=== PATIENT | female | born 1955 | race Caucasian/White ===

== ENCOUNTER 2022-08-26 09:23 | Emergency (ER) | payer MEDICARE, MEDICAID, SELFPAY ==
--- NOTE | ~2022-08-26 | XR_ITS ---
EXAMINATION: XR SHOULDER, LEFT CLINICAL INFORMATION: Pain COMPARISON: None TECHNIQUE: Three views of the left shoulder. FINDINGS: No fracture or dislocation. The glenohumeral joint is well aligned. Mild joint space narrowing with small osteophytes. The acromioclavicular joint is intact. The visualized lung is clear. The visualized ribs are intact. XR/XR shoulder LT min 2V IMPRESSION: Mild degenerative changes of the left glenohumeral joint.
[2022-08-26 09:50] VITALS: BP 151/85; PULSE 85; RESP 16; TEMP 36.6; O2SAT 99; BMI 18.2
--- NOTE | 2022-08-26 10:33 | ED_ITS ---
HPI - Extremity Problem General Chief complaint: Extremity Problem Stated complaint: Pain in L shoulder and arm no inj Time Seen by Provider: 08/26/22 10:15 Source: patient Mode of arrival: ambulatory Limitations: no limitations History of Present Illness HPI Narrative: 67-year-old female with a past medical history of leukemia, chronic left shoulder pain who is currently on oxycodone who is presenting to the ER with complaints of acute on chronic left shoulder pain Over the past few days worse today. Reports that she has an appointment with Orthopedics in September. She has had physical therapy in the past for this and has had cortisone injections although no symptomatic relief. Reports she just got a new dog therefore he is tugging and she is lifting him a little bit more she regrets getting this dog and she believes it might be related to her acute on chronic left shoulder pain. Reports she cannot take Motrin due to her leukemia and her oncologist told her it is not good for her. Otherwise she denies any falls, chest pain, dizziness, nausea / vomiting, extremity edema, paresthesias, dyspnea on exertion, orthopnea, palpitations, rashes or any other symptoms complaints or concerns at this time. MD Complaint: joint pain Onset (ago): year(s) ( Worse in the past few days) Pain Consistency: constant Location: left and upper extremity ( shoulder) Quality: aching Radiation: none Relieving factors: nothing Exacerbating factors: range of motion and palpation Associated symptoms: denies other symptoms Related Data Previous Rx's Medication Instructions Recorded cyclobenzaprine 10 mg tablet 10 mg PO Q8H #14 tabs 08/26/22 prednisone 20 mg tablet 40 mg PO DAILY inflammation 5 days 08/26/22 #10 tabs Allergies Allergy/AdvReac Type Severity Reaction Status Date / Time vancomycin [VANCOMYCIN] Allergy Mild HIVES Unverified 05/22/20 15:30 imipenem [IMIPENEM] Allergy Unknown HIVES Unverified 05/22/20 15:30 Penicillins [PENICILLINS] Allergy Unknown UNKNOWN Unverified 05/22/20 15:30 lisinopril [LISINOPRIL] AdvReac Unknown COUGH Unverified 05/22/20 15:30 Penicillin Allergy Unknown Uncoded 04/14/12 00:00 Review of Systems Review of Systems: Constitutional : No Weight loss, No Fever, No Chills, No Night Sweats, No Fatigue, No Malaise ENT/Mouth : No Hearing loss, No Ear Pain, No Nasal Congestion, No Sinus Pain, No Hoarseness, No sore throat, No Rhinorrhea, No Swallowing Difficulty Eyes: No Eye Pain, No Swelling, No Redness, No Foreign Body, No Discharge, No Vision Changes Cardiovascular : No Chest Pain, No SOB, No Dyspnea on Exertion, No Orthopnea, No Edema, No Palpitations Respiratory : No Cough, No Sputum, No Wheezing, No Smoke Exposure, No Dyspnea Gastrointestinal : No Nausea, No Vomiting, No Diarrhea, No Constipation, No abdominal Pain, No Hematochezia, No Melena Genitourinary : no irregular bleeding, No Dysuria, No Urinary Frequency, No Hematuria, No Urinary Incontinence, No Urgency, No Flank Pain, No Urinary Flow Changes, No Hesitancy Musculoskeletal : + left shoulder joint pain, No Myalgias, No Joint Swelling Skin : No Skin Lesions, No rash Neuro : No Weakness, No Numbness, No Paresthesias, No Loss of Consciousness, No Dizziness, No Headache Psych : No Anxiety/Panic, No Depression, No SI/HI/AH/VH, No Social Issues, Heme/Lymph: No Bruising, No Bleeding,No Lymphadenopathy Endocrine : No Polyuria, No Polydipsia, No Temperature Intolerance Yes all other systems are reviewed and are negative [facility] Past Medical History Attestation statement: The following information was validated with the patient. Source: old records reviewed and nursing notes reviewed Social History Social History Advance Directives: Yes Advance Directives Information Provided: No Advance Directives on File: No Physical Exam Vital Signs: Vital Signs: Last Vital Signs Temp 97.8 F 08/26/22 09:50 Pulse 85 08/26/22 09:50 Resp 16 08/26/22 09:50 BP 151/85 H 08/26/22 09:50 Pulse Ox 99 08/26/22 09:50 O2 Del Method 08/26/22 09:50 BMI result Body Mass Index 18.2 vital signs have been reviewed as normal and appeared to be correct. Blood pressure normal Heart rate normal. Respiration rate normal. Temperature normal. Oxygen saturation normal. Appearance: Alert. Oriented X3. No acute distress. Head: Normal external exam. Normocephalic. Atraumatic. Eyes: PERRLA. EOMI. Conjunctiva and sclera normal. Eyelids normal. ENT: Pharynx normal. Uvula midline. Moist mucous membranes. Neck: Normal inspection. Neck supple. FROM. CVS: Normal heart rate and rhythm. Respiratory: No respiratory distress. Painless inspiration. Skin: Skin warm and dry. Normal skin color. Normal skin turgor. No rashes/lesions/lacerations noted. Extremities: patient mild tenderness palpation to the left AC joint with limited range of motion on flexion and abduction and outward rotation and inward rotation. Otherwise no obvious ligamentous or tendon injury noted. No extremity edema noted. No rashes are noted. Not consistent with septic joint. Otherwise all other extremities exhibit normal range of motion nontender. Neuro: Oriented X 3. No motor deficit. No sensory deficit. Reflexes normal. Normal steady gait. No focal neuro deficits noted. Vascular: + radial pulses/+ 2 distal pedal pulses/+2 dorsalis pedis b/l. Normal cap refill. No cyanosis noted to upper extremity nails and lower extremity toes nails. Course Course Course Narrative: X-ray revealed FINDINGS: No fracture or dislocation. The glenohumeral joint is well aligned. Mild joint space narrowing with small osteophytes. The acromioclavicular joint is intact. The visualized lung is clear. The visualized ribs are intact.? XR/XR shoulder LT min 2V IMPRESSION: Mild degenerative changes of the left glenohumeral joint. therefore explained to the patient that she should follow-up with her primary care provider continue taking her prescribed Tylenol and her oxycodone I will add prednisone and muscle relaxant and to follow-up with PCP for referral to for physical therapy or possible Orthopedics for steroids shots if they believe she requires it. Otherwise to return if any new or worsening symptoms. Patient understands agrees with this plan Discharge Plan Discharge Clinical Impression: Degenerative joint disease of left shoulder Patient Disposition: Home, Self-Care Instructions: Osteoarthritis (ED) Prescriptions: New prednisone 20 mg tablet 40 mg PO DAILY 5 Days Qty: 10 0RF cyclobenzaprine 10 mg tablet 10 mg PO Q8H Qty: 14 0RF Referrals: Erwin Gavin MD [Physician] - 3 days
--- OUTSIDE RECORDS SUMMARY | 2022-08-26 10:44 | XMS_ITS | Continuity of Care Document ---
:1955 Author Organization [facility] Address [address] [place] [address]- Care Team Providers Name Role Phone Rah ROBERSON, Eva Snell Primary Care Physician Encounter [facility] [place] Date(s): 01/29/20 - 02/05/20 [facility] [address] [place] [address] [place] Attending Physician: Cuauhtemoc Nuñez MD Admitting Physician: Cuauhtemoc Nuñez MD Allergies, Adverse Reactions, Alerts Substance Reaction Severity Status lisinopril Active cephalosporins Active penicillins Rash Active Vanoxide-HC Active cilastatin Active imipenem Active Medications acetaminophen 500 mg oral capsule 2 capsule = 1,000 mg, By Mouth, Every 6 hours, PRN Pain, # 24 capsule, 0 Refills, Maintenance, Capsule Start Date: 02/04/11 Status: OrderedAmlodipine By Mouth, Daily, 0 Refills, Maintenance, 11/21/18 12:02:38 EDT Start Date: 11/21/18 Status: OrderedBactrim DS Tab (Prophylaxis) 1, tablet, By Mouth, 2 times a day, Maintenance, 01/02/13 4:40:45 Start Date: 01/02/13 Status: OrderedCalcium Carbonate By Mouth, 0 Refills, Maintenance, 08/21/14 14:34:57 Start Date: 08/21/14 Status: OrderedEfudex 5% topical cream 1 applicator, Topically, 2 times a day, 0 Refills, Maintenance, 08/21/14 14:35:34 Start Date: 08/21/14 Status: OrderedExjade = 20 mg/kg, By Mouth, Daily, 0 Refills, Maintenance, 08/21/14 14:35:49 Start Date: 08/21/14 Status: OrderedFolic Acid Daily, 0 Refills, Maintenance, 08/21/14 14:35:41 Start Date: 08/21/14 Status: Orderedgabapentin 300 mg/24 hours oral tablet, extended release 2 tablet = 600 mg, By Mouth, Daily, 0 Refills, Maintenance, 08/21/14 14:34:20 Start Date: 08/21/14 Status: Orderedglycerin adult rectal suppository 1 supp, Rectally, Daily, for 14 days, prior to having bowel movement, # 14 supp, 1 Refills, Acute 02/26/20 14:10:00 EDT, 01/29/20 14:10:00 EDT, Suppository, [facility] # [facility], 173, cm, 11/27/18 12:36:00 EDT, Height Start Date: 01/29/20 Stop Date: 02/26/20 Status: OrderedLorazepam 0 Refills, Maintenance, 08/21/14 14:34:29 Start Date: 08/21/14 Status: OrderedMultivitamin By Mouth, Daily, 0 Refills, Maintenance Start Date: 01/02/13 Status: Orderedoxycodone 5 mg/5 ml oral solution 5 mL = 5 mg, By Mouth, Every 6 hours, PRN for pain, # 120 mL, 0 Refills, Maintenance, Solution Start Date: 02/04/11 Status: Orderedprednisone 1 mg oral tablet 4 tablet = 4 mg, By Mouth, Daily, 0 Refills, Maintenance Start Date: 01/02/13 Status: OrderedValtrex 500 mg oral tablet 2 tablet = 1,000 mg, By Mouth, Every 12 hours, 0 Refills, Maintenance Start Date: 12/21/09 Status: Ordered Problem List Condition Effective Dates Status Health Status Informant Fecal incontinence(Confirmed) Active Social History Social History Type Response Smoking Status Never smoker entered on: 08/21/14 Sex
--- OUTSIDE RECORDS SUMMARY | 2022-08-26 10:44 | XMS_ITS | Continuity of Care Document ---
:1955 Author Organization [facility] Address [address] [place] [address]- Care Team Providers Name Role Phone Eva Monreal MD Primary Care Physician Encounter [facility] [place] Date(s): 03/03/20 - 03/10/20 [facility] [address] [place] [id number] [place] Attending Physician: Cuauhtemoc Nuñez MD Admitting Physician: Cuauhtemoc Nuñez MD Referring Physician: Eva Monreal MD Allergies, Adverse Reactions, Alerts Substance Reaction [...] Maintenance, 08/21/14 14:34:20 Start Date: 08/21/14 Status: OrderedLorazepam 0 Refills, Maintenance, 08/21/14 14:34:29 [...]
--- OUTSIDE RECORDS SUMMARY | 2022-08-26 10:44 | XMS_ITS | Continuity of Care Document ---
:1955 Author Organization [facility] Address [address] [place] [address]- Care Team Providers Name Role Phone Eva Monreal MD Primary Care Physician Encounter [facility] [place] Date(s): 10/29/20 - 11/28/20 [facility] [address] [place] [address]- Allergies, Adverse Reactions, Alerts Substance Reaction Severity Status lisinopril cough Active cephalosporins rash Active penicillins Rash Active Vanoxide-HC rash Active cilastatin rash Active imipenem rash Active Medications acetaminophen 500 mg oral capsule 2 capsule = 1,000 mg, By Mouth, Every 6 hours, PRN Pain, # 24 capsule, 0 Refills, Maintenance, Capsule Start Date: 02/04/11 Status: OrderedAmlodipine = 5 mg, By Mouth, 2 times a day, 0 Refills, Maintenance, 11/21/18 12:02:38 EDT Start Date: 11/21/18 Status: OrderedBactrim DS Tab (Prophylaxis) 1, tablet, By Mouth, 2 times a day, Maintenance, 01/02/13 4:40:45 Start Date: 01/02/13 Status: OrderedEfudex 5% topical cream 1 applicator, Topically, 2 times a day, PRN Other, as instructed for skin issue on hand, 0 Refills, Maintenance, 08/21/14 14:35:34 EST Start Date: 08/21/14 Status: OrderedFolic Acid = 1 mg, By Mouth, Daily in AM, 0 Refills, Maintenance, 08/21/14 14:35:41 EST Start Date: 08/21/14 Status: Orderedgabapentin 300 mg oral capsule 3 capsules, By Mouth, Daily in AM, Refills 0, Maintenance, 10/24/20 8:46:00 EST, Partial fill upon patient request if the prescription is for a schedule II opioid drug. Start Date: 10/24/20 Status: Orderedgabapentin 300 mg oral capsule 4 capsules, By Mouth, Daily at bedtime, Refills 0, Maintenance, 10/24/20 8:47:00 EST, Partial fill upon patient request if the prescription is for a schedule II opioid drug. Start Date: 10/24/20 Status: Orderedkirkland calcium citrate with Mg,Zinc,andD3 franco calcium citrate with Mg,Zinc,andD3, 1, tablet, By Mouth, Daily in AM, Refills 0, Maintenance, 10/24/20 9:05:00 EST, Supply Start Date: 10/24/20 Status: OrderedLorazepam = 1 mg, By Mouth, 4 times a day, PRN as needed for anxiety, may take .5 mg, 0 Refills, Maintenance, 08/21/14 14:34:29 EST Start Date: 08/21/14 Status: OrderedNiacinamide 2 capsules, By Mouth, 2 times a day, 0 Refills, Maintenance, 10/24/20 9:10:00 EST, Partial fill uponpatient request if the prescription is for a schedule II opioid drug. Start Date: 10/24/20 Status: OrderedoxyCODONE 5 mg oral capsule 1 capsule = 5 mg, By Mouth, Every 6 hours, PRN as needed for pain, 0 Refills, Maintenance, 10/24/20 9:04:00 EST, Capsule, Partial fill upon patient request if the prescription is for a schedule II opioid drug. Start Date: 10/24/20 Status: Orderedprednisone 1 mg oral tablet 1 tablet = 1 mg, By Mouth, Daily in AM, 0 Refills, Maintenance, 01/02/13 4:38:47 EDT Start Date: 01/02/13 Status: OrderedProbiotic Formula 1 capsule, By Mouth, Daily in AM, 0 Refills, Maintenance, 10/24/20 9:12:00 EST, Partial fill upon patient request if the prescription is for a schedule II opioid drug. Start Date: 10/24/20 Status: OrderedTrintellix 20 mg oral tablet 1 tablet = 20 mg, By Mouth, Daily at bedtime, Maintenance, 10/24/20 8:50:00 EST, Tablet, Partial fill upon patient request if the prescription is for a schedule II opioid drug. Start Date: 10/24/20 Status: OrderedValtrex 500 mg oral tablet 2 tablet = 1,000 mg, By Mouth, Every 12 hours, 0 Refills, Maintenance Start Date: 12/21/09 Status: OrderedVitamin K2 and D3 Vitamin K2 and D3, 1 gel, By Mouth, Daily in AM, Refills 0, Maintenance, 10/24/20 9:08:00 EST, Supply Start Date: 10/24/20 Status: Ordered Problem List Condition Effective Dates Status Health Status Informant Fecal incontinence(Confirmed) Active Social History Social History Type Response Smoking Status Never smoker entered on: 08/21/14 Sex
--- OUTSIDE RECORDS SUMMARY | 2022-08-26 10:44 | XMS_ITS | Continuity of Care Document ---
:1955 Author Organization [facility] Address [address] [place] [id number]- Care Team Providers Name Role Phone Rah ROBERSON, Eva Snell Primary Care Physician [place] [facility] [place](s): 10/30/20 - 10/30/[address] [id number] Discharge Disposition: A-D/C Home Attending Physician: Kristyn Cr MD Admitting Physician: Kristyn Cr MD Referring Physician: Kristyn Cr MD Allergies, Adverse Reactions, Alerts Substance Reaction [...] 08/21/14 14:35:34 EST Start Date: 08/21/14 Status: OrderedFENTanyl Inj 25 mcg, Injection, IV Push Slowly, Every 5 minutes for 8 doses/times, in PACU ONLY, Hold for: RR less than 8 or over-sedation, PRN for Pain , Moderate, Repeat until Pain Score is less than or equal to 2, Routine, 10/30/20 13:34:00 EST, Stop date Limit... Start Date: 10/30/20 Status: OrderedFolic Acid = 1 mg, By [...] II opioid drug. Start Date: 10/24/20 Status: OrderedOxyCODONE IR Tablet 5 mg, Tablet, By Mouth, Every 4 hours, in PACU ONLY, if patient can tolerate PO, PRN for Pain , Mild, Routine, 10/30/20 13:34:00 EST Start Date: 10/30/20 Stop Date: 11/06/20 Status: Orderedprednisone 1 mg oral tablet 1 [...] Status Health Status Informant Fecal incontinence(Confirmed) Active Vital Signs Most recent to oldest 1 2 3 [Reference Range]: Height 173 cm 173 cm (10/30/20 12:27 PM) (10/24/20 9:28 AM) Weight 58.18 kg (10/24/20 9:28 AM) Oxygen Saturation 96 % 96 % 100 % [94-100 %] (10/30/20 3:15 PM) (10/30/20 3:00 PM) (10/30/20 2:4 5 PM) Pulse Rate [55-90 bpm] 77 bpm (10/30/20 12:27 PM) Body Mass Index 19.44 [18.5-24.99] (10/24/20 9:28 AM) Blood Pressure 128/74 mm Hg 113/56 mm Hg 115/67 mm Hg [90-138/55-84 mm Hg] (10/30/20 3:15 PM) (10/30/20 3:00 PM) ( 1 2:45 PM) Respiratory Rate [16-30 12 br/min 11 br/min 12 br/mi n br/min] *L* *L* *L* (10/30/20 3:15 PM) (10/30/20 3:07 PM) (10/30/20 2:5 3 PM) Temperature [96.8-100.4 97.6 DegF 97.2 DegF 98.8 Deg F DegF] (10/30/20 3:15 PM) (10/30/20 2:30 PM) (10/30/20 12: 27 PM) Liters per Minute 4 L/min 4 L/min (10/30/20 2:45 PM) (10/30/20 2:30 PM) Mode of Delivery Room air Room air Simple face mas k (Oxygen) (10/30/20 3:15 PM) (10/30/20 3:00 PM) (10/30/20 2:4 5 PM) Blood pressure sites Arm, right Arm, right Arm, right (10/30/20 3:15 PM) (10/30/20 3:00 PM) (10/30/20 2:4 5 PM) Temperature Route Temporal Temporal Temporal (10/30/20 3:15 PM) (10/30/20 2:30 PM) (10/30/20 12: 27 PM) Dry Weight 59.6 kg 58.18 kg (10/30/20 12:27 PM) (10/24/20 9:28 AM) Weight Obtained Via Patient/family stated (10/24/20 9:28 AM) Dry Weight Obtained Via Standing scale Patient/family stated (10/30/20 12:27 PM) (10/24/20 9:28 AM) Social History Social History Type Response Smoking Status Never smoker entered on: 08/21/14 Sex
--- OUTSIDE RECORDS SUMMARY | 2022-08-26 10:44 | XMS_ITS | Continuity of Care Document ---
:1955 Author Organization [facility] Address [address] [place] [address]- Care Team Providers Name Role Phone Eva Monreal MD Primary Care Physician Encounter [facility] [place] Date(s): 12/17/20 - 12/24/20 [facility] [address] [place] [id number]- Attending Physician: Cuauhtemoc Nuñez MD Admitting Physician: Cuauhtemoc Nuñez MD Referring Physician: Eva Monreal MD Allergies, Adverse Reactions, Alerts Substance Reaction Severity Status lisinopril cough Active Vanoxide-HC rash Active imipenem rash Active cephalosporins rash Active penicillins Rash Active cilastatin rash Active Medications acetaminophen 500 mg oral [...]
--- OUTSIDE RECORDS SUMMARY | 2022-08-26 10:44 | XMS_ITS | Continuity of Care Document ---
:1955 Author Organization [facility] Address [address] [facility], [address] [place] [address]- Care Team Providers Name Role Phone Eva Monreal MD Primary Care Physician Encounter 04/24/20 - 05/01/20 [facility] [address], [address] [place] [address]- [facility] Attending Physician: Alley Cr MD Admitting Physician: Alley Cr MD Referring Physician: Alley Cr MD Allergies, Adverse Reactions, Alerts Substance [...] Status Health Status Informant Fecal incontinence(Confirmed) Active Results Radiology Reports Exam Date Time Procedure Performing Provider Status 04/24/20 9:35 AM Dexa Bone Density (Axial) Rita Ivey (Verified) Notes:(Dexa Bone Density (Axial)) Reason For Exam: z78.0 asymptomatic menopasual stateRESULT: DEXA BONE DENSITY (AXIAL) Bone Density Report Name: PHYLLIS CUADRA Age: 64 Sex: Female Ethnicity: White Date of : 1955 Indication: POSTMENOPAUSAL. Referring Provider: ALLEY CR Study: Bone densitometry was performed. Exam Date: April 24, 2020 Accession number: [id number] Bone Density: Region BMD T-score Z-score Classification AP Spine (L1-L4) 0.931 -1.1 0.8 Osteopenia Femoral Neck (Left) 0.739 -1.0 0.6 Normal Total Hip (Left) 0.767 -1.4 -0.2 Osteopenia World Health Organization criteria for BMD impression classify patients as: Normal (T-score at or above -1.0), Osteopenia (T-score between -1.0 and -2.5), or Osteoporosis (T-score at or below -2.5). 10-year Fracture Risk(1): Major Osteoporotic Fracture 12% Hip Fracture 1.1% Reported Risk Factors: [place] (), Neck BMD=0.739, BMI=21.3, glucocorticoids (1) FRAX(R) Version 3.00. Fracture probability calculated for an untreated patient. Fracture probability may be lower if the patient has received treatment. Previous Exams: Region Exam Age BMD T-score BMD Change BMD Change Date g/cm2 vs Baseline vs Previous AP Spine(L1-L4) 04/24/2020 64 0.931 -1.1 -3.0%* -0.9% 08/04/2016 61 0.939 -1.0 -2.2% 2.0% 07/24/2014 59 0.920 -1.2 -4.2%* -4.2%* 04/06/2012 56 0.960 -0.8 Total Hip(Left) 04/24/2020 64 0.767 -1.4 13.4%* -2.0% 08/04/2016 61 0.783 -1.3 15.7%* 8.6%* 07/24/2014 59 0.721 -1.8 6.6%* 6.6%* 04/06/2012 56 0.677 -2.2 Femoral Neck(Left) 04/24/2020 64 0.739 -1.0 12.9%* 17.8%* 08/04/2016 61 0.627 -2.0 -4.2% 0.2% 07/24/2014 59 0.626 -2.0 -4.4% -4.4% 04/06/2012 56 0.655 -1.7 *Denotes significance at 95% confidence level, LSC for AP Spine = 0.022 g/cm2, LSC for Total Hip = 0.027 g/cm2 Clinical Information Provided by Patient: Has taken Glucocorticoids Has used the following medications: Vitamin D, Calcium Has the following medical conditions: Cancer, LEUKEMIA Patient maximum height was 68.75 Menopause Age: 48 Onset of menses at age 11 Number of children 3 Impression: The patient has osteopenia as determined by WHO criteria. Based on the results of the patient???s bone density assessment, the risk of future fracture increases approximately two fold for each 1.0 SD decrease in T-score. However, low BMD is not the only risk factor for a future fragility fracture. Other clinical risk factors for osteoporotic fracture should be considered in ascertaining this patient???s future fracture risk including the patient???s age, previous osteoporotic (fragility) fracture, estrogen deficiency/hypogonadism, risk of falling, use of medications implicated in bone loss (glucocorticoids), family history of osteoporotic fracture, diseases and conditions associated with bone loss, low body weight, smoking, high bone turnover, etc. Combining low BMD and other clinical risk factors result in a more precise assessment of future fracture risk. Secondary causes for osteoporosis, such as osteomalacia, other metabolic bone disorders, and diseases and conditions that may contribute to accelerated bone loss may have to be considered depending on the clinical situation. A repeat bone density assessment should be considered in two years. Reported by: Romain Lopez MD on 04/24/2020 12:45:00 PM. Dictated By: Romain Lopez MD Dictated Date/Time: 04/24/20 12:46 p Reviewed By: Romain Lopez MD Signed By: Romain Lopez MD Signed Date/Time: 04/24/20 12:46 pm Transcribed By: MARLENA Transcribed Date/Time: 04/24/20 12:46 pm Social History Social History Type Response Smoking Status Never smoker entered on: 08/21/14 Sex
--- OUTSIDE RECORDS SUMMARY | 2022-08-26 10:44 | XMS_ITS | Continuity of Care Document ---
:1955 Author Organization [facility] Address [address] [place] [address], [address] [place] [id number]- Care Team Providers Name Role Phone Rah ROBERSON, Eva Snell Primary Care Physician Encounter 06/03/21 - 06/10/21 [facility] [address], [address] [place] [address]- Attending Physician: Kristyn Cr MD Admitting Physician: [...]
--- OUTSIDE RECORDS SUMMARY | 2022-08-26 10:44 | XMS_ITS | Continuity of Care Document ---
:1955 Author Organization [facility] Address [address] [place] [address]- Care Team Providers Name Role Phone Eva Monreal MD Primary Care Physician [place] [facility] [place] - 04/09/20 [facility] [address] [place] [id number]- [place] Attending Physician: Cuauhtemoc Nuñez MD Admitting [...]
--- OUTSIDE RECORDS SUMMARY | 2022-08-26 10:45 | XMS_ITS | Continuity of Care Document ---
:1955 Author Organization [facility] Address [address] [place] [address]- Care Team Providers Name Role Phone Rah ROBERSON, Eva Snell Primary Care Physician Encounter [facility] [place] Date(s): 03/03/20 - 04/02/20 [facility] [address] [place] [id number]- [facility] Attending Physician: Alexa Lundberg Admitting Physician: AdmAlexa lewis Referring Physician: AdmtrAlexa Allergies, Adverse Reactions, Alerts Substance Reaction Severity [...]
--- OUTSIDE RECORDS SUMMARY | 2022-08-26 10:45 | XMS_ITS | Continuity of Care Document ---
:1955 Author Organization [facility] Address [address] [place] [address]- Care Team Providers Name Role Phone Rah ROBERSON, Eva Snell Primary Care Physician Encounter [facility] [place], [place] Date(s): 12/17/20 - 01/16/21 [facility] [address] [place] [id number]- Attending Physician: Alexa Lundberg Admitting Physician: Alexa Lundberg Referring Physician: AdmtrAlexa Allergies, Adverse Reactions, Alerts [...]
== END 2022-08-26 10:50 | disposition home or self-care (01) ==
PROVIDERS: Emergency Provider Emergency Medicine Emergency Medical Services; PCP Internal Medicine
DX: M19.012 Primary osteoarthritis, left shoulder (principal); M25.512 Pain in left shoulder
CPT/HCPCS: 73030; 99283

== ENCOUNTER 2022-08-29 12:23 | Emergency (ER) | payer MEDICARE, MEDICAID, SELFPAY ==
[2022-08-29 12:30] VITALS: BP 164/77; PULSE 89; RESP 14; TEMP 36.6; O2SAT 99; BMI 18.2
--- NOTE | 2022-08-29 14:20 | PC.NURSE ---
pt medicated per order, pt requesting another 5 mg oxy for her 05/15 pain
--- NOTE | 2022-08-29 14:29 | ED_ITS ---
HPI - General Adult General Chief complaint: General Medical Stated complaint: Allergic Reaction Time Seen by Provider: 08/29/22 12:44 Source: patient Mode of arrival: ambulatory History of Present Illness HPI narrative: 67-year-old female with a past medical history of leukemia, chronic left shoulder pain, presenting to the ED complaining of acute on chronic left shoulder and elbow pain, now with pruritic rash at prior Lidoderm patch site. Admits to being seen in the ED recently for similar symptoms, Rx Lidoderm patches and Flexeril, then developed localized pruritic hives to area. States had shoulder x-ray at that time which showed osteoarthritis however did not take x-rays of elbow. Reports fell out of bed onto elbow, unclear which day. Denies symptoms prior to fall including headache, lightheadedness or dizziness. Denies SOB, oral swelling, head trauma or LOC. denies chest pain, shortness of breath, numbness, tingling, weakness Onset (ago): day(s) Related Data Previous Rx's Medication Instructions Recorded cyclobenzaprine 10 mg tablet 10 mg PO Q8H #14 tabs 08/26/22 prednisone 20 mg tablet 40 mg PO DAILY inflammation 5 days 08/26/22 #10 tabs cetirizine 10 mg capsule (Zyrtec) 10 mg PO DAILY PRN allergy 08/29/22 symptoms #14 caps diphenhydramine HCl 25 mg capsule 25 mg PO TID PRN allergic reaction 08/29/22 (Benadryl) #14 caps hydrocortisone 1 % topical 1 appl topical BID PRN rash #453.6 08/29/22 ointment (Anti-Itch grams (hydrocortisone)) Allergies Allergy/AdvReac Type Severity Reaction Status Date / Time vancomycin [VANCOMYCIN] Allergy Mild HIVES Unverified 05/22/20 15:30 imipenem [IMIPENEM] Allergy Unknown HIVES Unverified 05/22/20 15:30 Penicillins [PENICILLINS] Allergy Unknown UNKNOWN Unverified 05/22/20 15:30 lisinopril [LISINOPRIL] AdvReac Unknown COUGH Unverified 05/22/20 15:30 Penicillin Allergy Unknown Uncoded 04/14/12 00:00 Review of Systems Review of Systems: Constitutional: No Fever, No Chills, No Fatigue, No Malaise ENT/Mouth: No Ear Pain, No Nasal Congestion, No Sinus Pain, No Hoarseness, No sore throat, No Rhinorrhea, No Swallowing Difficulty Eyes: No Eye Pain, No Swelling, No Redness, No Discharge, No Vision Changes Cardiovascular: No Chest Pain, No SOB, No Edema, No Palpitations Respiratory: No Cough, No Sputum, No Wheezing, No Smoke Exposure, No Dyspnea Gastrointestinal: No Nausea, No Vomiting, No Diarrhea, No Constipation, No Abdom inal pain, Genitourinary: No Dysuria, No Urinary Frequency, No Hematuria, No Urgency, No Flank Pain Musculoskeletal: + joint pain, No Myalgias, No Joint Swelling Skin: No Skin Lesions, + rash Neuro: No Weakness, No Numbness, No Paresthesias, No Loss of Consciousness, No Dizziness, No Headache Yes all other systems are reviewed and are negative Constitutional: Constitutional: Reports as per [facility] Past Medical History Attestation statement: The following information was validated with the patient. Social History Social History Advance Directives: Yes Advance Directives Information Provided: No Advance Directives on File: No Physical Exam ED Vital Signs: Vital Signs - 24 hr 08/29/22 12:30 Temperature 98 F Pulse Rate 89 Respiratory Rate 14 Blood Pressure 164/77 H Pulse Oximetry 99 Oxygen Delivery Method Room Air BMI result Body Mass Index 18.2 Const General: cooperative and no acute distress Orientation/consciousness: patient oriented x3 Limitations: no limitations HENMT Head: Yes normal to inspection and Yes atraumatic Ears: hearing grossly normal bilaterally General nose exam: Normal external nose present Face and sinus: Yes normal facial exam Mouth: Normal oral and palatal mucosa present Throat: Yes posterior oropharynx normal, Yes tonsils normal, Yes uvula midline, No peritonsillar mass, No uvula laterally displaced and No uvular edema Eyes General: appearance normal, both eyes and all related structures EOM: EOMs intact bilaterally Neck Neck: Yes normal visual inspection and Yes no meningeal signs Resp Effort & Inspection: normal respiratory effort and no respiratory distress Cardio Rate: regular rate Heart sounds: S1 normal heart sound present and S2 normal heart sound present Peripheral pulses: Peripheral pulses 2+ throughout Skin Other: + localized hives to left upper arm in patch formation. Overlying excoriations noted. No open wounds/drainage, warmth or cellulitis. Not circumferential Wounds: no wounds Neuro General: patient oriented x3, gait normal, tone normal, moves all extremities and no meningeal signs Gait exam (Neuro): Normal gait present Extrem Other: Left shoulder with mild tenderness. Decreased ROM secondary to pain. Left elbow without noted deformity, tender to palpation. Pronation/supination intact. Neurovascular intact distally. General: Yes normal to inspection Course Course Course Narrative: XR elbow LT min 3V IMPRESSION: ? 1. Moderate diffuse osteopenia. 2. Soft tissue swelling overlying the olecranon bursa. 3. Tiny 2 to 3 mm curvilinear radiopaque density seen overlying the outer cortex of the olecranon process of the ulna, may represent small cortical avulsion fracture versus calcific enthesopathy with or without superimposed olecranon bursitis. 4. No evidence of any joint effusion. >> sling applied Results discussed with patient including worrisome signs and symptoms and strict return precautions, and when to return to the emergency department. They verbalized understanding and feel safe for discharge at this time. Medications Administered Discontinued Medications Generic Name Dose Route Start Last Admin Trade Name Amrita PRN Reason Stop Dose Admin Acetaminophen 650 mg 08/29/22 14:04 08/29/22 14:19 Acetaminophen 325 Mg Tablet PO 08/29/22 14:05 650 mg ONCE ONE Administration Oxycodone HCl 5 mg 08/29/22 14:04 08/29/22 14:19 Oxycodone Hcl Immed Release 5 Mg Tablet PO 08/29/22 14:05 5 mg ONCE ONE Administration Medical Decision Making Medical Decision Making [facility] Narrative: 67-year-old female with a past medical history of leukemia, chronic left shoulder pain, presenting to the ED complaining of acute on chronic left shoulder and elbow pain, now with pruritic rash at prior Lidoderm patch site. On exam vital signs stable, NAD, nontoxic appearing with physical exam as above with suspected localized allergic reaction from Lidoderm patches vs ?Possibly due to Flexeril although less likely. Concern for occult fracture of elbow versus sprain. Documentation/imaging reviewed from 08/26. Plan: Elbow x-ray, topical hydrocortisone. Patient previously prescribed p.o. prednisone, also takes oxycodone at home Differential Diagnosis Differential Diagnoses: The differential diagnosis associated with the presentation includes Discharge Plan Discharge Clinical Impression: Fracture, olecranon, Allergic reaction Patient Disposition: Home, Self-Care Instructions: Elbow Fracture (ED), How to Use a Sling (ED), General Allergic Reaction (ED) Additional Instructions: Your x-ray shows a possible avulsion fracture of her elbow. Wear sling at home at all times, you may take off to shower. Please call the orthopedic surgeon for follow-up in 1 week. You also have what appears to be a localized allergic reaction suspected from the Lidoderm patch. Please stop using. Continue taking previously prescribed prednisone, in addition apply topical steroid cream twice daily. Zyrtec and Benadryl also help with allergy symptoms. Benadryl will make you drowsy Avoid applying this cream to her face, hands, feet, and genital region as can discolored your skin. If you develop shortness of breath, facial or oral swel ling, difficulty breathing, fever, persistent or worsening pain return to the emergency department Prescriptions: New Zyrtec 10 mg capsule 10 mg PO DAILY PRN (Reason: allergy symptoms) Qty: 14 0RF diphenhydramine HCl [Benadryl] 25 mg capsule 25 mg PO TID PRN (Reason: allergic reaction) Qty: 14 0RF hydrocortisone [Anti-Itch (HC)] 1 % ointment 1 appl topical BID PRN (Reason: rash) Qty: 453.6 0RF No Action prednisone 20 mg tablet 40 mg PO DAILY 5 Days Qty: 10 0RF cyclobenzaprine 10 mg tablet 10 mg PO Q8H Qty: 14 0RF Referrals: [facility] [Provider Group] - 1 week Interventions: ED Discharge Assessment Last Done: 08/29/22 14:59 Discharge Date/Time: 08/29/22 15:00
--- NOTE | 2022-08-29 14:57 | PC.NURSE ---
pt continued to ask for another 5 mg oxycodone, pt has been notified multiple times that the provider declines to administer any additional pain medications, pt is upset over this, pt has oxycodone at home and has been discharged.
--- NOTE | 2022-08-29 14:59 | PC.NURSE ---
pts pain upon discharge is 9/10.
== END 2022-08-29 15:00 | disposition home or self-care (01) ==
PROVIDERS: Emergency Provider Student in an Organized Health Care Education/Training Program; PCP Internal Medicine
DX: S52.022A Displaced fracture of olecranon process without intraarticular extension of left ulna, initial encounter for closed fracture (principal); L50.0 Allergic urticaria; X58.XXXA Exposure to other specified factors, initial encounter; Y93.9 Activity, unspecified; Y92.9 Unspecified place or not applicable; Y99.9 Unspecified external cause status; Z79.899 Other long term (current) drug therapy
CPT/HCPCS: 73080; 99283

== ENCOUNTER 2022-10-15 15:03 | Emergency (ER) | payer MEDICARE, MEDICAID, SELFPAY ==
--- NOTE | 2022-10-15 15:18 | ED_ITS ---
HPI - General Adult General Chief complaint: General Medical Stated complaint: Unresponsive per EMS Time Seen by Provider: 10/15/22 17:03 Source: patient Mode of arrival: ambulatory Limitations: no limitations History of Present Illness HPI narrative: 67yoF with PMHx of leukemia, chronic left shoulder pain, neuropathy to feet presenting to the ED with complaints of feeling not great/lightheadedness since taking some THC TINCTURE travel pta. Reports she did vomit and felt like she was going to pass although did not pass out. She was able to call EMS. MD complaint: Not feeling great after THC drop Onset (ago): hour(s) (Prior to arrive) Related Data Previous Rx's Medication Instructions Recorded cyclobenzaprine 10 mg tablet 10 mg PO Q8H #14 tabs 08/26/22 prednisone 20 mg tablet 40 mg PO DAILY inflammation 5 days 08/26/22 #10 tabs cetirizine 10 mg capsule (Zyrtec) 10 mg PO DAILY PRN allergy 08/29/22 symptoms #14 caps diphenhydramine HCl 25 mg capsule 25 mg PO TID PRN allergic reaction 08/29/22 (Benadryl) #14 caps hydrocortisone 1 % topical 1 appl topical BID PRN rash #453.6 08/29/22 ointment (Anti-Itch grams (hydrocortisone)) Allergies Allergy/AdvReac Type Severity Reaction Status Date / Time vancomycin [VANCOMYCIN] Allergy Mild HIVES Unverified 05/22/20 15:30 imipenem [IMIPENEM] Allergy Unknown HIVES Unverified 05/22/20 15:30 Penicillins [PENICILLINS] Allergy Unknown UNKNOWN Unverified 05/22/20 15:30 lisinopril [LISINOPRIL] AdvReac Unknown COUGH Unverified 05/22/20 15:30 Penicillin Allergy Unknown Uncoded 04/14/12 00:00 Review of Systems Review of Systems: Constitutional : No Weight loss, No Fever, No Chills, No Night Sweats, No Fatigue, No Malaise ENT/Mouth : No Hearing loss, No Ear Pain, No Nasal Congestion, No Sinus Pain, No Hoarseness, No sore throat, No Rhinorrhea, No Swallowing Difficulty Eyes: No Eye Pain, No Swelling, No Redness, No Foreign Body, No Discharge, No Vision Changes Cardiovascular : No Chest Pain, No SOB, No Dyspnea on Exertion, No Orthopnea, No Edema, No Palpitations Respiratory : No Cough, No Sputum, No Wheezing, No Smoke Exposure, No Dyspnea Gastrointestinal : No Nausea, No Vomiting, No Diarrhea, No Constipation, No abdominal Pain, No Hematochezia, No Melena Genitourinary : no irregular bleeding, No Dysuria, No Urinary Frequency, No Hematuria, No Urinary Incontinence, No Urgency, No Flank Pain, No Urinary Flow Changes, No Hesitancy Musculoskeletal : No joint pain, No Myalgias, No Joint Swelling Skin : No Skin Lesions, No rash Neuro : + lightheadedness that is improving, No Weakness, No Numbness, No Paresthesias, No Loss of Consciousness, No Dizziness, No Headache Psych : No Anxiety/Panic, No Depression, No SI/HI/AH/VH, No Social Issues, Heme/Lymph: No Bruising, No Bleeding,No Lymphadenopathy Endocrine : No Polyuria, No Polydipsia, No Temperature Intolerance Yes all other systems are reviewed and are negative [facility] Past Medical History Attestation statement: The following information was validated with the patient. Source: old records reviewed and nursing notes reviewed Social History Social History Advance Directives: No Advance Directives Information Provided: No Physical Exam ED Vital Signs: Vital Signs - 24 hr 10/15/22 15:19 Temperature 98.1 F Pulse Rate 71 Respiratory Rate 18 Blood Pressure 145/71 H Pulse Oximetry 100 Oxygen Delivery Method Room Air BMI result Body Mass Index 18.0 vital signs have been reviewed as normal and appeared to be correct. Blood pressure normal. Heart rate normal. Respiration rate normal. Temperature normal. Oxygen saturation normal. Appearance: Alert. Oriented X3. No acute distress. Head: Normal external exam. Normocephalic. Atraumatic. Eyes: PERRLA. EOMI. Conjunctiva and sclera normal. Eyelids normal. ENT: EAC normal. TM's Normal. Pharynx normal. Uvula midline. Moist mucous membranes. No lesions/ulcerations or masses noted on the tongue. Normal voice. No trismus noted. No drooling noted. No muffled voice noted. Neck: Normal inspection. Neck supple. FROM. No adenopathy. Thyroid Normal. No tracheal deviation noted. No crepitus is noted. No meningeal signs. No neck mass noted. No signs of trauma noted. CVS: Normal heart rate and rhythm. Heart sound normal. Pulses normal throughout. No murmurs/rales/gallops. Respiratory: No respiratory distress. Painless inspiration. Breath sounds normal. No wheezes/rales/rhonchi noted. Chest nontender. No crepitus is noted. No signs of trauma noted. No accessory muscle usage noted or decreased air movement noted. No signs of trauma. Abdomen: Soft and nontender. Bowel sounds normal in all 4 quadrants. No distention noted. No organomegaly noted. No visible injury noted. Back: No CVA tenderness. Full range of motion noted. Nontender. No signs of trauma. Patient neuro intact bilaterally and distally on all 4 extremities. Patient's reflexes intact bilaterally and distally on all 4 extremities. No rashes/lesion/induration/fluctuance or signs of infection noted. Skin: Skin warm and dry. Normal skin color. Normal skin turgor. No rashes/lesions/lacerations noted. Extremities: No lower extremity edema. No calf tenderness is noted. Extremities exhibit normal range of motion and nontender. Neuro: Oriented X 3. No motor deficit. No sensory deficit. Reflexes normal. Normal steady gait. No focal neuro deficits noted. CN's II-XII intact bilaterally? Vascular: + radial pulses/+ 2 distal pedal pulses/+2 dorsalis pedis b/l. Normal cap refill. No cyanosis noted to upper extremity nails and lower extremity toes nails. Course Course Course Narrative: RME- 15:20PM - 67yoF with PMHx of leukemia, chronic left shoulder pain, neuropathy to feet presenting to the ED with complaints of feeling not great/lightheadedness since taking some THC TINCTURE travel pta. Reports she did vomit and felt like she was going to pass although did not pass out. She was able to call EMS. Plan: On exam patient is alert and oriented x3. Not in any acute distress. Seems very relaxed. Vital signs are stable within normal limits. Will obtain basic labs, EKG. Patient will be sent to the waiting room to be evaluated in the ED. Reevaluation(s) Reevaluation #1: Labs return patient mild anemia with an H&H 11.0/31.5. Carbon dioxide 31. BUN 33. Random glucose 147. AST/ALT 34/53. Total protein 6.1. Patient negative for COVID/RSV/flu. Patient reports she is feeling much better she has a normal steady gait reports that she would like to go home she already called her boyfriend to be dis charged. Therefore we will discharge the patient with instructions return if any new worsening some to follow-up with PCP and to not take those THC drops. Patient understands agrees with this plan. Time: 17:05 Medical Decision Making Lab Data [facility] Lab Attestation statement: I reviewed the patient's lab results. 10/15/22 15:41 10/15/22 15:41 Labs: Lab Results 10/15/22 10/15/22 10/15/22 Range/Units 15:41 15:41 15:41 WBC 8.3 (4.8-10.8) X10*3/uL RBC 3.01 L (4.20-5.50) X10*6/uL Hgb 11.0 L (12.0-16.0) g/dl Hct 31.5 L (37.0-47.0) % MCV 104.7 H (80.0-98.0) fL MCH 36.5 H (27.0-33.0) pg MCHC 34.9 (31.0-35.0) g/dl RDW 18.0 H (11.0-16.0) % Plt Count 234 (160-400) X10*3/uL MPV 10.0 (9.4-12.3) fL Immature Gran % (Auto) 0.4 (0.0-0.4) % Neut % (Auto) 87.5 H (45-73) % Lymph % (Auto) 4.9 L (20-40) % Ramsey % (Auto) 6.6 (2-11) % Eos % (Auto) 0.5 (0-4) % Baso % (Auto) 0.1 (0-2) % Lymph # (Auto) 0.4 L (1.2-4.9) X10*3/uL Ramsey # (Auto) 0.6 (0.1-1.2) X10*3/uL Eos # (Auto) 0.0 (0.0-0.4) X10*3/uL Baso # (Auto) 0.0 (0.0-0.2) X10*3/uL Abs Immat Gran (auto) 0.03 (0.00-0.03) X10*3/uL Absolute Neuts (auto) 7.3 (2.0-8.3) x10*3/uL Absolute Nucleated RBC 0.160 H (0.0-0.012) X10*3/uL Nucleated RBC % (auto) 1.9 H (0.0-0.2) /100WBC PT 10.3 (10.0-13.1) SEC INR 0.9 (0.9-1.1) Sodium 138 (135-145) mmol/L Potassium 4.5 (3.3-5.1) mmol/L Chloride 98 (96-108) mmol/L Carbon Dioxide 31 H (22-29) mmol/L Anion Gap 14 (12-20) BUN 33 H (9-16) mg/dL Creatinine 1.30 (0.5-1.4) mg/dL Estim Creat Clear Calc 34.1 Estimated GFR 41 Random Glucose 147 H (60-115) mg/dL Calcium 9.6 (8.4-10.2) mg/dL Magnesium 2.4 (1.6-2.6) mg/dL Total Bilirubin 0.5 (0.0-1.0) mg/dL AST 34 H (5-31) U/L ALT 53 H (0-31) U/L Alkaline Phosphatase 74 (39-117) U/L Total Protein 6.1 L (6.5-8.0) g/dL Albumin 4.3 (3.5-5.0) g/dL Influenza Type A (PCR) (Negative) Influenza Type B (PCR) (Negative) RSV RNA Qual (PCR) (Negative) SARS-CoV-2 RNA (RT-PCR) (Negative) 10/15/22 Range/Units 15:41 WBC (4.8-10.8) X10*3/uL RBC (4.20-5.50) X10*6/uL Hgb (12.0-16.0) g/dl Hct (37.0-47.0) % MCV (80.0-98.0) fL MCH (27.0-33.0) pg MCHC (31.0-35.0) g/dl RDW (11.0-16.0) % Plt Count (160-400) X10*3/uL MPV (9.4-12.3) fL Immature Gran % (Auto) (0.0-0.4) % Neut % (Auto) (45-73) % Lymph % (Auto) (20-40) % Ramsey % (Auto) (2-11) % Eos % (Auto) (0-4) % Baso % (Auto) (0-2) % Lymph # (Auto) (1.2-4.9) X10*3/uL Ramsey # (Auto) (0.1-1.2) X10*3/uL Eos # (Auto) (0.0-0.4) X10*3/uL Baso # (Auto) (0.0-0.2) X10*3/uL Abs Immat Gran (auto) (0.00-0.03) X10*3/uL Absolute Neuts (auto) (2.0-8.3) x10*3/uL Absolute Nucleated RBC (0.0-0.012) X10*3/uL Nucleated RBC % (auto) (0.0-0.2) /100WBC PT (10.0-13.1) SEC INR (0.9-1.1) Sodium (135-145) mmol/L Potassium (3.3-5.1) mmol/L Chloride (96-108) mmol/L Carbon Dioxide (22-29) mmol/L Anion Gap (12-20) BUN (9-16) mg/dL Creatinine (0.5-1.4) mg/dL Estim Creat Clear Calc Estimated GFR Random Glucose (60-115) mg/dL Calcium (8.4-10.2) mg/dL Magnesium (1.6-2.6) mg/dL Total Bilirubin (0.0-1.0) mg/dL AST (5-31) U/L ALT (0-31) U/L Alkaline Phosphatase (39-117) U/L Total Protein (6.5-8.0) g/dL Albumin (3.5-5.0) g/dL Influenza Type A (PCR) NEGATIVE (Negative) Influenza Type B (PCR) NEGATIVE (Negative) RSV RNA Qual (PCR) NEGATIVE (Negative) SARS-CoV-2 RNA (RT-PCR) NEGATIVE (Negative) Discharge Plan Discharge Clinical Impression: Ingestion of substance, Tetrahydrocannabinol (THC) dependence Patient Disposition: Home, Self-Care Instructions: Cannabis Abuse (ED) Prescriptions: No Action prednisone 20 mg tablet 40 mg PO DAILY 5 Days Qty: 10 0RF cyclobenzaprine 10 mg tablet 10 mg PO Q8H Qty: 14 0RF Zyrtec 10 mg capsule 10 mg PO DAILY PRN (Reason: allergy symptoms) Qty: 14 0RF diphenhydramine HCl [Benadryl] 25 mg capsule 25 mg PO TID PRN (Reason: allergic reaction) Qty: 14 0RF hydrocortisone [Anti-Itch (HC)] 1 % ointment 1 appl topical BID PRN (Reason: rash) Qty: 453.6 0RF Referrals: Monica Waller, [facility] [Primary Care Provider] - 2 days
[2022-10-15 15:19] VITALS: BP 142/70; BP 145/71; PULSE 71; PULSE 75; RESP 18; TEMP 36.7; O2SAT 100; O2SAT 99; BMI 18.0
--- NOTE | 2022-10-15 15:22 | ECG_ITS ---
Test Reason : S/P THC INGESTION Blood Pressure : / mmHG Vent. Rate : 072 BPM Atrial Rate : 072 BPM P-R Int : 124 ms QRS Dur : 084 ms QT Int : 400 ms P-R-T Axes : 076 060 076 degrees QTc Int : 438 ms Normal sinus rhythm Moderate voltage criteria for LVH, may be normal variant ( [place] , Shiro product ) Borderline ECG No previous ECGs available Referred By: Em Fontana Electronically Signed By:ABI MAHONEY MD
[2022-10-15 15:49] LABS: MANUAL DIFF FLAG NO
[2022-10-15 15:50] LABS: Basophils Percent Auto 0.1 % (0-2); Eosinophils Percent Auto 0.5 % (0-4); Hematocrit 31.5 % (37.0-47.0); Imm Gran Abs Auto 0.03 X10*3/uL (0.00-0.03); Imm Gran Pct Auto 0.4 % (0.0-0.4); Lymphocytes Absolute Auto 0.4 X10*3/uL (1.2-4.9); Lymphocytes Percent Auto 4.9 % (20-40); Mean Corpuscular HGB Conc 34.9 g/dl (31.0-35.0); Mean Corpuscular Hemoglobin 36.5 pg (27.0-33.0); Mean Corpuscular Volume 104.7 fL (80.0-98.0); Monocytes Absolute Auto 0.6 X10*3/uL (0.1-1.2); Monocytes Percent Auto 6.6 % (2-11); Neutrophils Absolute Auto 7.3 x10*3/uL (2.0-8.3); Neutrophils Percent Auto 87.5 % (45-73); Platelet Count 234 X10*3/uL (160-400); Red Blood Count 3.01 X10*6/uL (4.20-5.50); White Blood Count 8.3 X10*3/uL (4.8-10.8)
[2022-10-15 15:56] LABS: INTERNATIONAL NORM RATIO 0.9 (0.9-1.1); Prothrombin Time 10.3 SEC (10.0-13.1)
[2022-10-15 15:57] LABS: NRBC Pct Auto 1.9 /100WBC (0.0-0.2)
[2022-10-15 16:13] LABS: Alanine Aminotransferase 53 U/L (0-31); Albumin Level 4.3 g/dL (3.5-5.0); Alkaline Phosphatase 74 U/L (39-117); Anion Gap 14 (12-20); Aspartate Amino Transferase 34 U/L (5-31); Bilirubin Total 0.5 mg/dL (0.0-1.0); Blood Urea Nitrogen 33 mg/dL (9-16); Calcium 9.6 mg/dL (8.4-10.2); Carbon Dioxide 31 mmol/L (22-29); Chloride 98 mmol/L (96-108); Creatinine Clr Calc Pharmacy 34.1; Estimated Glomerular Filt Rate 41; Glucose Random 147 mg/dL (60-115); Magnesium 2.4 mg/dL (1.6-2.6); Potassium 4.5 mmol/L (3.3-5.1); Sodium 138 mmol/L (135-145); Total Protein 6.1 g/dL (6.5-8.0)
[2022-10-15 16:48] LABS: Influenza A PCR NEGATIVE (Negative); Influenza B PCR NEGATIVE (Negative); Resp Syncy Virus RNA Qual PCR NEGATIVE (Negative); SARS COV2 PCR INHOUSE NEGATIVE (Negative)
== END 2022-10-15 17:13 | disposition home or self-care (01) ==
PROVIDERS: Physician Assistant Medical; Emergency Provider Emergency Medicine; PCP Nurse Practitioner Primary Care
DX: F12.20 Cannabis dependence, uncomplicated (principal); R42 Dizziness and giddiness; R06.02 Shortness of breath; M25.512 Pain in left shoulder; Z20.822 Contact with and (suspected) exposure to COVID-19; Z20.828 Contact with and (suspected) exposure to other viral communicable diseases; Z79.899 Other long term (current) drug therapy
CPT/HCPCS: 0241U; 36415; 80053; 83735; 85025; 85610; 93005; 99283

== ENCOUNTER 2023-05-16 18:04 | Emergency (ER) | payer MEDICARE, MEDICAID, SELFPAY ==
--- NOTE | ~2023-05-16 | CT_ITS ---
EXAMINATION: CT CERVICAL SPINE WITHOUT CONTRAST CLINICAL INFORMATION: Pain. Multiple falls. COMPARISON: None available. TECHNIQUE: Axial images through the cervical spine without IV contrast. Sagittal and coronal reconstructions on the technologist workstation were performed. This CT examination was performed using dose optimization techniques as appropriate, variously including the following: *Automated exposure control *Adjustment of mA and/or kV according to patient size (this includes techniques or standardized protocols for targeted exams where dose is matched to indication/reason for exam; i.e. extremities or head) *Use of iterative reconstruction technique DLP: 202 mGy-cm FINDINGS: There is mild retrolisthesis of C5 with respect to C4 and C6 measuring 2 mm. There is mild curvature of the lower cervical and upper thoracic spine to the left and head tilt to the right. Alignment is otherwise normal. No fracture or dislocation. Degenerative spondylosis and degenerative disc disease from C3-C4 to C5-C6. Prevertebral soft tissues are normal. Bilateral carotid calcification. Biapical pleural parenchymal scarring. Question surgical staple line at the right lung apex. Small bilateral thyroid nodules. No imaging follow-up recommended. CT/CT cervical spine wo IV con IMPRESSION: Degenerative changes. No fracture or dislocation. Fleischner guidelines were followed.
--- NOTE | ~2023-05-16 | CT_ITS ---
EXAMINATION: CT HEAD WITHOUT CONTRAST CLINICAL INFORMATION: Fall. Head trauma. COMPARISON: None available. TECHNIQUE: Contiguous axial imaging was performed from the skull base to vertex without intravenous administration of contrast. This CT examination was performed using dose optimization techniques as appropriate, variously including the following: *Automated exposure control *Adjustment of mA and/or kV according to patient size (this includes techniques or standardized protocols for targeted exams where dose is matched to indication/reason for exam; i.e. extremities or head) *Use of iterative reconstruction technique DLP: 633 mGy-cm FINDINGS: There is no evidence of an extra-axial collection. There is no evidence of intra-axial or extra-axial hemorrhage. Ventricles and extra-axial CSF spaces are slightly prominent suggestive of mild generalized atrophy. [place]-white matter differentiation is normal. No mass, mass effect or infarct. Atherosclerotic disease. No skull fracture. Inflammatory changes in the ethmoid sinuses. CT/CT head/brain wo IV con IMPRESSION: No acute findings.
[2023-05-16 19:19] VITALS: BP 164/69; PULSE 83; RESP 18; TEMP 36.7; O2SAT 97; BMI 16.7
--- NOTE | 2023-05-16 19:19 | ED.FALL ---
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 shingles pain taking oxycodone 5 mg 6 tablets a day also taking THC and flexeril been falling very often apparently fell last night while coming out of the bathroom at multiple different stages of skin tear on the both forearms bruise on the left forehead walks an unsteady gait with each tilting to the right side been followed by pain clinic and PCP Related Data Previous Rx's Medication Instructions Recorded cyclobenzaprine 10 mg tablet 10 mg PO Q8H #14 tabs 08/26/22 prednisone 20 mg tablet 40 mg (2 x 20 mg) PO DAILY 08/26/22 inflammation 5 days #10 tabs cetirizine 10 mg capsule (Zyrtec) 10 mg PO DAILY PRN allergy 08/29/22 symptoms #14 caps diphenhydramine HCl 25 mg capsule 25 mg PO TID PRN allergic reaction 08/29/22 (Benadryl) #14 caps hydrocortisone 1 % topical 1 appl topical BID PRN rash #453.6 08/29/22 ointment (Anti-Itch grams (hydrocortisone)) cefuroxime axetil 250 mg tablet 250 mg PO BID 7 days #14 tabs 05/17/23 Allergies Allergy/AdvReac Type Severity Reaction Status Date / Time vancomycin [VANCOMYCIN] Allergy Mild HIVES Unverified 05/22/20 15:30 imipenem [IMIPENEM] Allergy Unknown HIVES Unverified 05/22/20 15:30 Penicillins [PENICILLINS] Allergy Unknown UNKNOWN Unverified 05/22/20 15:30 lisinopril [LISINOPRIL] AdvReac Unknown COUGH Unverified 05/22/20 15:30 Penicillin Allergy Unknown Uncoded 04/14/12 00:00 Review of Systems Review of Systems: Yes all other systems are reviewed and are negative [facility] Social History Social History Alcohol intake: current Alcohol intake frequency: holidays/special occasions only Smoked in Last 30 Days: No Use of substances other than those prescribed or required for medical reasons: Yes Substance Use Type: Marijuana Substance Use Frequency: Occasionally Advance Directives: No Advance Directives Information Provided: No Physical Exam Vital Signs: Vital Signs: Last Vital Signs Temp 98.4 F 05/16/23 22:24 Pulse 41 L 05/17/23 00:21 Resp 12 05/16/23 22:24 BP 163/54 H 05/17/23 00:21 Pulse Ox 98 05/16/23 22:24 O2 Del Method Room Air 05/16/23 22:24 BMI result Body Mass Index 16.7 Appearance: Alert. Oriented X3. thin emaciated patient Eyes: PERRLA, No Nystagmus ENT: Pharynx normal. Oral Mucosa moist Neck: Normal inspection. Neck supple. CVS: Normal heart rate and rhythm. Pulses normal. Respiratory: No respiratory distress. Equal air entry bilateral, no wheezing/rales/rhonchi Abdomen: Soft and nontender. Bowel sounds are present, no mass palpable, no CVA tenderness Skin: Skin warm and dry. Normal skin color. Normal skin turgor. Extremities: No lower extremity edema. No calf tenderness multiple skin tears bilateral forearm Neuro: Oriented X 3. No motor deficit. No sensory deficit.No cerebellar signs , cranial nerves II-XII intact Course Course Course Narrative: RME - 68 yo female history of AML s/p 4 stem cell transplants, hx shingles in Aug 2022 who presents to the ER for evaluation of multiple falls, last was last night. She is on oxycodone and hydroxyzine for chronic pain after shingles. She is also on ativan and takes THC gummies. Has fallen and hit her head several times. Plan: basic labs and CT head Medications Administered Discontinued Medications Generic Name Dose Route Start Last Admin Trade Name Ramonq PRN Reason Stop Dose Admin Bacitracin 4 appl 05/16/23 23:57 05/17/23 00:07 Bacitracin Oint 0.9 Gm Packet TOPICAL 05/16/23 23:58 4 appl ONCE ONE Administration Protocol Cefuroxime Axetil 250 mg 05/17/23 00:14 05/17/23 00:29 Cefuroxime Axetil 250 Mg Tablet PO 05/17/23 00:15 250 mg ONCE ONE Administration Sodium Zirconium Cyclosilicate 10 gm 05/16/23 23:45 05/16/23 23:51 Sodium Zirconium Cyclosilicate 10 Gm Powd.Pack PO 05/16/23 23:46 10 gm ONCE ONE Administration Medical Decision Making Medical Decision Making [facility] Narrative: patient frail with frequent falls likely from polypharmacy is incidentally elevated as local ER also patient does have UTI Differential Diagnosis Differential Diagnoses: The differential diagnosis associated with the presentation includes polypharmacy/metabolic etiology /chronic pain syndrome Lab Data [facility] Lab Attestation statement: I reviewed the patient's lab results. 05/16/23 20:08 05/16/23 20:08 Labs: Lab Results 05/16/23 05/16/23 Range/Units 20:08 22:27 WBC 8.0 (4.8-10.8) X10*3/uL RBC 3.01 L (4.20-5.50) X10*6/uL Hgb 10.8 L (12.0-16.0) g/dl Hct 30.9 L (37.0-47.0) % MCV 102.7 H (80.0-98.0) fL MCH 35.9 H (27.0-33.0) pg MCHC 35.0 (31.0-35.0) g/dl RDW 16.5 H (11.0-16.0) % Plt Count 193 (160-400) X10*3/uL MPV 10.7 (9.4-12.3) fL Immature Gran % (Auto) 0.2 (0.0-0.4) % Neut % (Auto) 75.9 H (45-73) % Lymph % (Auto) 14.7 L (20-40) % [place] % (Auto) 8.2 (2-11) % Eos % (Auto) 0.5 (0-4) % Baso % (Auto) 0.5 (0-2) % Lymph # (Auto) 1.2 (1.2-4.9) X10*3/uL [place] # (Auto) 0.7 (0.1-1.2) X10*3/uL Eos # (Auto) 0.0 (0.0-0.4) X10*3/uL Baso # (Auto) 0.0 (0.0-0.2) X10*3/uL Abs Immat Gran (auto) 0.02 (0.00-0.03) X10*3/uL Absolute Neuts (auto) 6.1 (2.0-8.3) x10*3/uL Absolute Nucleated RBC 0.000 (0.0-0.012) X10*3/uL Nucleated RBC % (auto) 0.0 (0.0-0.2) /100WBC Sodium 138 (135-145) mmol/L Potassium 5.5 H D (3.3-5.1) mmol/L Chloride 99 (96-108) mmol/L Carbon Dioxide 32 H (22-29) mmol/L Anion Gap 13 (12-20) BUN 24 H (9-16) mg/dL Creatinine 1.05 (0.5-1.4) mg/dL Estim Creat Clear Calc 39.8 Estimated GFR 52 Random Glucose 114 (60-115) mg/dL Calcium 9.5 (8.4-10.2) mg/dL Magnesium 2.1 (1.6-2.6) mg/dL Total Bilirubin 0.4 (0.0-1.0) mg/dL Direct Bilirubin 0.1 (0.0-0.5) mg/dL AST 41 H (5-31) U/L ALT 31 (0-31) U/L Alkaline Phosphatase 100 (39-117) U/L Total Protein 6.5 (6.5-8.0) g/dL Albumin 4.2 (3.5-5.0) g/dL Urine Color Yellow Urine Appearance Clear Urine pH 6.5 (5.0-9.0) Ur Specific [place] 1.015 (1.005-1.025) Urine Protein Negative (Neg-Trace) mg/dL Urine Glucose (UA) Negative (Negative) mg/dL Urine Ketones Negative (Negative) mg/dL Urine Blood Negative (Negative) Urine Nitrite Negative (Negative) Ur Leukocyte Esterase Large (3+) H (Negative) Urine RBC 0-2 (0-2) /HPF Urine WBC 21-50 H (0-5) /HPF Ur Squamous Epith Cells 0-2 (0-2) /HPF Urine Bacteria None Seen (None Seen) Hyaline Casts 0-2 (0-2) /LPF Urine Opiates Screen POSITIVE H (Not Detect) Urine Fentanyl Screen Not Detected (Not Detect) Ur Barbiturates Screen Not Detected (Not Detect) Ur Phencyclidine Scrn Not Detected (Not Detect) Ur Amphetamines Screen Not Detected (Not Detect) U Benzodiazepines Scrn Not Detected (Not Detect) Urine Cocaine Screen Not Detected (Not Detect) U Marijuana (THC) Screen POSITIVE H (Not Detect) Ethyl Alcohol < 10 mg/dL Discharge Plan Discharge Clinical Impression: Frequent falls, Narcotic drug use, Chronic UTI, Acute hyperkalemia Patient Disposition: Home, Self-Care Instructions: Urinary Tract Infection in Women (ED), Fall Prevention for Older Adults (ED), Hyperkalemia (ED), Narcotic Use Disorder (ED) Additional Instructions: avoid taking pain medication and THC same time avoid food containing high potassium medication for UTI as prescribed drink plenty of fluids follow-up with pain clinic care and cautions as advised Prescriptions: New cefuroxime axetil 250 mg tablet 250 mg PO BID 7 Days Qty: 14 0RF No Action prednisone 20 mg tablet 40 mg PO DAILY 5 Days Qty: 10 0RF cyclobenzaprine 10 mg tablet 10 mg PO Q8H Qty: 14 0RF Zyrtec 10 mg capsule 10 mg PO DAILY PRN (Reason: allergy symptoms) Qty: 14 0RF diphenhydramine HCl [Benadryl] 25 mg capsule 25 mg PO TID PRN (Reason: allergic reaction) Qty: 14 0RF hydrocortisone [Anti-Itch (HC)] 1 % ointment 1 appl topical BID PRN (Reason: rash) Qty: 453.6 0RF Referrals: Ashwin Alexander MD [Physician] - 2 weeks Interventions: ED Discharge Assessment Last Done: 05/17/23 00:42 Discharge Date/Time: 05/17/23 00:43
[2023-05-16 20:12] LABS: MANUAL DIFF FLAG NO
[2023-05-16 20:13] LABS: Basophils Percent Auto 0.5 % (0-2); Eosinophils Percent Auto 0.5 % (0-4); Hematocrit 30.9 % (37.0-47.0); Hemoglobin 10.8 g/dl (12.0-16.0); Imm Gran Abs Auto 0.02 X10*3/uL (0.00-0.03); Imm Gran Pct Auto 0.2 % (0.0-0.4); Lymphocytes Absolute Auto 1.2 X10*3/uL (1.2-4.9); Lymphocytes Percent Auto 14.7 % (20-40); Mean Corpuscular Hemoglobin 35.9 pg (27.0-33.0); Mean Corpuscular Volume 102.7 fL (80.0-98.0); Mean Platelet Volume 10.7 fL (9.4-12.3); Monocytes Absolute Auto 0.7 X10*3/uL (0.1-1.2); Monocytes Percent Auto 8.2 % (2-11); Neutrophils Absolute Auto 6.1 x10*3/uL (2.0-8.3); Neutrophils Percent Auto 75.9 % (45-73); Platelet Count 193 X10*3/uL (160-400); Red Blood Count 3.01 X10*6/uL (4.20-5.50); Red Cell Distribution Width 16.5 % (11.0-16.0)
[2023-05-16 20:29] LABS: Ethanol < 10 mg/dL
[2023-05-16 20:32] LABS: Alanine Aminotransferase 31 U/L (0-31); Albumin Level 4.2 g/dL (3.5-5.0); Alkaline Phosphatase 100 U/L (39-117); Anion Gap 13 (12-20); Aspartate Amino Transferase 41 U/L (5-31); Bilirubin Direct 0.1 mg/dL (0.0-0.5); Bilirubin Total 0.4 mg/dL (0.0-1.0); Blood Urea Nitrogen 24 mg/dL (9-16); Calcium 9.5 mg/dL (8.4-10.2); Carbon Dioxide 32 mmol/L (22-29); Chloride 99 mmol/L (96-108); Creatinine Clr Calc Pharmacy 39.8; Estimated Glomerular Filt Rate 52; Glucose Random 114 mg/dL (60-115); Magnesium 2.1 mg/dL (1.6-2.6); Potassium 5.5 mmol/L (3.3-5.1); Sodium 138 mmol/L (135-145); Total Protein 6.5 g/dL (6.5-8.0)
[2023-05-16 22:24] VITALS: BP 168/86; PULSE 71; RESP 12; TEMP 36.9; O2SAT 98
[2023-05-16 22:41] LABS: Appearance Urine Clear; Color Urine Yellow; Glucose Urine UA Negative (Negative); Leukocyte Esterase Urine Large (3+) (Negative); Nitrite Urine Negative (Negative); PH 6.5 (5.0-9.0); Specific Gravity - Urine 1.015 (1.005-1.025); UMIC TRIGGER UACC YES; Urine Blood Negative (Negative); Urine Ketones Negative (Negative); Urine Protein Negative (Neg-Trace)
[2023-05-16 22:46] LABS: Bacteria Urine None Seen (None Seen); Hyaline Casts Urine 0-2 /LPF (0-2); RBC Urine 0-2 /HPF (0-2); Squamous Epithelial Cell Urine 0-2 /HPF (0-2); UACC Culture Trigger YES; WBC Urine 21-50 /HPF (0-5)
[2023-05-16 22:47] LABS: Amphetamine Screen Urine Not Detected (Not Detect); Barbiturates, Urine Not Detected (Not Detect); Benzodiazepines Screen Urine Not Detected (Not Detect); Cannabinoid Screen Urine POSITIVE (Not Detect); Cocaine Screen Urine Not Detected (Not Detect); Fentanyl, urine Not Detected (Not Detect); Opiate Screen Urine POSITIVE (Not Detect); Phencyclidine Screen Urine Not Detected (Not Detect)
[2023-05-16] MEDS: Sodium Zirconium Cyclosilicate 10 GM POWD.PACK PO (23:51)
[2023-05-17] MEDS: Bacitracin Oint 0.9 GM PACKET 4 APPL TOPICAL (00:07)
[2023-05-17 00:19] VITALS: BP 155/59; PULSE 63
[2023-05-17 00:20] VITALS: BP 159/57; PULSE 65
[2023-05-17 00:21] VITALS: BP 163/54; PULSE 41
== END 2023-05-17 00:43 | disposition home or self-care (01) ==
PROVIDERS: Physician Assistant; Emergency Provider Internal Medicine; PCP Internal Medicine
DX: S41.112A Laceration without foreign body of left upper arm, initial encounter (principal); S41.111A Laceration without foreign body of right upper arm, initial encounter; S00.83XA Contusion of other part of head, initial encounter; R51.9 Headache, unspecified; M54.2 Cervicalgia; B02.8 Zoster with other complications; N39.0 Urinary tract infection, site not specified; F11.10 Opioid abuse, uncomplicated; F12.10 Cannabis abuse, uncomplicated; E87.5 Hyperkalemia; W01.10XA Fall on same level from slipping, tripping and stumbling with subsequent striking against unspecified object, initial encounter; Y93.9 Activity, unspecified; Y92.9 Unspecified place or not applicable; Y99.9 Unspecified external cause status; Z91.81 History of falling; Z79.899 Other long term (current) drug therapy
CPT/HCPCS: 36415; 70450; 72125; 80048; 80076; 80307; 81001; 83735; 85025; 87086; 99284

== ENCOUNTER 2023-05-23 15:08 | Emergency (ER) | payer MEDICARE, MEDICAID, SELFPAY ==
--- NOTE | ~2023-05-23 | CT_ITS ---
EXAMINATION: CT HEAD WITHOUT CONTRAST CT CERVICAL SPINE WITHOUT CONTRAST CLINICAL INFORMATION: Fall. Head strike. COMPARISON: May 16, 2023 CT head and cervical spine TECHNIQUE: Imaging was performed from the skull base to vertex without intravenous administration of contrast. In addition, helical noncontrast CT imaging was acquired through the cervical spine and source images were reviewed along with axial reconstructions and sagittal and coronal MPRs. [This CT examination was performed using dose optimization techniques as appropriate, variously including the following: *Automated exposure control *Adjustment of mA and/or kV according to patient size (this includes techniques or standardized protocols for targeted exams where dose is matched to indication/reason for exam; i.e. extremities or head) *Use of iterative reconstruction technique] DLP: 862 mGy-cm FINDINGS: HEAD: No intracranial mass, hemorrhage, or midline shift is visualized. There is generalized global volume loss. There is mild prominence of the ventricles and the sulci . There is mild hypodensity of the periventricular white matter due to chronic small vessel ischemic disease. There are vascular calcifications of the internal carotid arteries bilaterally. No extra-axial collections are identified. The paranasal sinuses and mastoid air cells are well aerated. CERVICAL SPINE: There is no evidence of acute cervical spine fracture. Vertebral bodies remain normal in height. Cervical vertebrae have normal alignment. There is multilevel degenerative spondylosis of the cervical spine with disc height narrowing and endplate spurs and facet joint arthrosis No pre- or paravertebral soft tissue abnormality is identified. Limited assessment of the lung apices is unremarkable. CT/CT cervical spine wo IV con IMPRESSION: 1. No acute intracranial pathology. 2. No CT evidence of acute cervical spine fracture or traumatic subluxation
--- NOTE | ~2023-05-23 | CT_ITS ---
EXAMINATION: CT LEFT FEMUR WITH CONTRAST CLINICAL INFORMATION: Fall with bruising and pain, question femur fracture, question hematoma extravasation COMPARISON: None TECHNIQUE: Multidetector volumetric images were obtained through the left femur following administration 85 mL of Omnipaque 350 intravenous contrast. Sagittal and coronal reformatted images were obtained on the technologist's workstation. This CT examination was performed using dose optimization techniques as appropriate, variously including the following: *Automated exposure control *Adjustment of mA and/or kV according to patient size (this includes techniques or standardized protocols for targeted exams where dose is matched to indication/reason for exam; i.e. extremities or head) *Use of iterative reconstruction technique DLP: 401 mGy-cm FINDINGS: Alignment at the hip and knee is anatomic, and joint spaces are relatively well-maintained. No acute fracture is seen. Trace knee effusion is noted. There are scattered atherosclerotic calcification. There are also scattered calcifications in the subcutaneous fat of the proximal to mid thigh. There is a subcutaneous hematoma lateral to the greater trochanter of the left femur measuring up to approximately 5.5 cm in craniocaudal dimension. No active contrast extravasation is seen. CT/CT femur LT w IV con IMPRESSION: Subcutaneous hematoma lateral to the greater trochanter of the left femur measuring up to approximately 5.5 cm. No active contrast extravasation. No acute fracture identified.
[2023-05-23 15:46] VITALS: BP 153/56; PULSE 86; RESP 16; TEMP 37.1; O2SAT 92; BMI 16.7
--- NOTE | 2023-05-23 15:46 | ED_ITS ---
HPI - Fall General Chief Complaint: Fall Stated Complaint: referred for head of CT, fall yesterday Time Seen by Provider: 05/23/23 21:16 Source: patient Mode of arrival: ambulatory Limitations: no limitations History of Present Illness HPI Narrative: 68 yold female with pmh of leukemia and presents to the ED for headache and left hip pain after falling unto the floor yesterday. patient states yesterday she fell unto the ground and hit her head and fell unto her left hip. Patient has history of frequent falls. Patient was referred by [facility] for Head CT scan due to bruise on left side of face. patient denies any chest pain, abdominal pain, dizziness, shortness of breath, or headache before falling. Related Data Previous Rx's Medication Instructions Recorded cyclobenzaprine 10 mg tablet 10 mg PO Q8H #14 tabs 08/26/22 prednisone 20 mg tablet 40 mg (2 x 20 mg) PO DAILY 08/26/22 inflammation 5 days #10 tabs cetirizine 10 mg capsule (Zyrtec) 10 mg PO DAILY PRN allergy 08/29/22 symptoms #14 caps diphenhydramine HCl 25 mg capsule 25 mg PO TID PRN allergic reaction 08/29/22 (Benadryl) #14 caps hydrocortisone 1 % topical 1 appl topical BID PRN rash #453.6 08/29/22 ointment (Anti-Itch grams (hydrocortisone)) cefuroxime axetil 250 mg tablet 250 mg PO BID 7 days #14 tabs 05/17/23 Allergies Allergy/AdvReac Type Severity Reaction Status Date / Time vancomycin [VANCOMYCIN] Allergy Mild HIVES Verified 05/23/23 15:46 imipenem [IMIPENEM] Allergy Unknown HIVES Verified 05/23/23 15:46 Penicillins [PENICILLINS] Allergy Unknown UNKNOWN Verified 05/23/23 15:46 lisinopril [LISINOPRIL] AdvReac Unknown COUGH Verified 05/23/23 15:46 Penicillin Allergy Unknown Hives Uncoded 05/23/23 15:46 Review of Systems 2 Review of Systems: fall. headache and left hip bruise Yes all other systems are reviewed and are negative PMFSH Social History Social History Alcohol intake: current Alcohol intake frequency: holidays/special occasions only Substance Use Type: Marijuana Advance Directives: No Advance Directives Information Provided: No Physical Exam 2 Vital Signs: Vital Signs: Last Vital Signs Temp 98.7 F 05/23/23 15:46 Pulse 79 05/23/23 20:01 Resp 16 05/23/23 15:46 BP 113/62 05/23/23 20:01 Pulse Ox 97 05/23/23 20:01 O2 Del Method Room Air 05/23/23 20:01 BMI result Body Mass Index 16.7 Const: General: cooperative, healthy appearing, comfortable, no acute distress, well developed, alert and awake Orientation/consciousness: oriented to person, oriented to place, oriented to time and patient oriented x3 HEENT: Head: Yes normal to inspection, Yes No palpable skull fracture present and Yes normocephalic Head images: 1. ecchymosis and mild tenderness. Eyes: General: appearance normal, both eyes and all related structures Neck: Neck: Yes normal visual inspection, Yes full ROM, Yes no lymphadenopathy, Yes no meningeal signs, Yes trachea midline, Yes supple, No anterior neck swelling and No tender Chest: Chest palpation & inspection: normal inspection of the chest and normal palpation of entire chest wall Resp: Effort & Inspection: normal respiratory effort and able to speak in complete sentences Cardio: Jugular venous distension: no JVD Heart sounds: S1 normal heart sound present and S2 normal heart sound present GI: Palpation (GI): Soft to palpation, not firm, nontender, no guarding and not rigid : General: No CVA tenderness and Yes no CVA tenderness Back/Spine/Pelvis: Back: no CVA tenderness, No CVA tenderness and No back tenderness Skin: Other: left femur hematoma General skin exam: no rashes or lesions noted and elasticity normal Neuro: General: oriented to person, oriented to place, oriented to time, patient oriented x3, gait normal, tone normal, moves all extremities, Normal light touch and pain sensation, no meningeal signs, no focal motor deficits, CN's II-XI intact bilaterally and normal sensation to monofilament Extrem: Upper/lower leg/hip images: 1. Positive for tenderness/ecchymosis on palpation. large hematoma. negative for creptius. Motor, neuro, and vascular exam of lower extremities is intact. NEgative for signs o compartment syndrome Psych: Appearance: grossly normal, well kempt and not disheveled Course Course Course Narrative: RME - 68 yo female with historiy of AML s/p 4 stem cell transplants, hx shingles in Aug 2022 on multiple sedating medications who presents to the ER for evaluation of multiple falls. Seen here last week for the same. She states she fell and hit her head in the kitchen yesterday and has a large black and blue on her left hip/upper thigh. Ambulatory. Not sure if she syncopized or passed out or what happened. C/o 6/10 headache. Plan: CT head/cervical spine, lab workup, EKG ?syncope Medications Administered Discontinued Medications Generic Name Dose Route Start Last Admin Trade Name Freq PRN Reason Stop Dose Admin Iohexol 100 ml 05/23/23 22:49 05/23/23 22:49 Iohexol 350 Mg/Ml 100 Ml Infus..Btl IV 05/23/23 22:50 85 ml ONCE ONE Administration Medical Decision Making Medical Decision Making [facility] Narrative: 68 yold female with pmh of [place], and bon[place]ow transplant presents to the ED for headache and left femur bruising after falling yesterday. patient took THC and ativan last night before falling. patient admits to takin higher dose of each to sleep last night before falling.. patient has shitory of frequent falls. Labs were ordered. 12:24am: Head CT and Cervical CT scan is normal. FEmur shows hematoma without fracture or extravasation. patient missed her ansep injection last week. patient states she is given it to bring her her hemoglobin/hematocrit/RBC up. Patient informed to follow up with PCP. . Patient informed to be aware of medicaiton intertactions especially, ativan oxycodone, and THC. Differential Diagnosis Differential Diagnoses: The differential diagnosis associated with the presentation includes (brain bleed, cervical spine fracture, femur fracture, hematoma. ) Admission/Observation Consideration of admission/observation: Escalation of care including admission/observation considered Lab Data [facility] Lab Attestation statement: I reviewed the patient's lab results. 05/23/23 16:25 05/23/23 16:25 Labs: Lab Results 05/23/23 05/23/23 Range/Units 16:25 22:09 WBC 5.6 (4.8-10.8) X10*3/uL RBC 2.75 L (4.20-5.50) X10*6/uL Hgb 9.7 L (12.0-16.0) g/dl Hct 28.4 L (37.0-47.0) % MCV 103.3 H (80.0-98.0) fL MCH 35.3 H (27.0-33.0) pg MCHC 34.2 (31.0-35.0) g/dl RDW 16.7 H (11.0-16.0) % Plt Count 204 (160-400) X10*3/uL MPV 10.2 (9.4-12.3) fL Immature Gran % (Auto) 0.2 (0.0-0.4) % Neut % (Auto) 74.4 H (45-73) % Lymph % (Auto) 13.3 L (20-40) % [place] % (Auto) 9.2 (2-11) % Eos % (Auto) 2.5 (0-4) % Baso % (Auto) 0.4 (0-2) % Lymph # (Auto) 0.7 L (1.2-4.9) X10*3/uL [place] # (Auto) 0.5 (0.1-1.2) X10*3/uL Eos # (Auto) 0.1 (0.0-0.4) X10*3/uL Baso # (Auto) 0.0 (0.0-0.2) X10*3/uL Abs Immat Gran (auto) 0.01 (0.00-0.03) X10*3/uL Absolute Neuts (auto) 4.1 (2.0-8.3) x10*3/uL Absolute Nucleated RBC 0.000 (0.0-0.012) X10*3/uL Nucleated RBC % (auto) 0.0 (0.0-0.2) /100WBC PT 11.1 (11.1-13.3) SEC INR 0.9 (0.9-1.1) APTT 31.2 (26.0-36.4) SEC Sodium 134 L (135-145) mmol/L Potassium 4.0 D (3.3-5.1) mmol/L Chloride 98 (96-108) mmol/L Carbon Dioxide 29 (22-29) mmol/L Anion Gap 11 L (12-20) BUN 21 H (9-16) mg/dL Creatinine 0.83 (0.5-1.4) mg/dL Estim Creat Clear Calc 50.3 Estimated GFR > 60 Random Glucose 118 H (60-115) mg/dL Calcium 9.0 (8.4-10.2) mg/dL Magnesium 2.0 (1.6-2.6) mg/dL Total Bilirubin 0.5 (0.0-1.0) mg/dL Direct Bilirubin 0.2 (0.0-0.5) mg/dL AST 30 (5-31) U/L ALT 33 H (0-31) U/L Alkaline Phosphatase 88 (39-117) U/L Total Protein 5.9 L (6.5-8.0) g/dL Albumin 4.0 (3.5-5.0) g/dL Urine Color Yellow Urine Appearance Clear Urine pH 7.0 (5.0-9.0) Ur Specific [place] 1.010 (1.005-1.025) Urine Protein Negative (Neg-Trace) mg/dL Urine Glucose (UA) Negative (Negative) mg/dL Urine Ketones Negative (Negative) mg/dL Urine Blood Negative (Negative) Urine Nitrite Negative (Negative) Ur Leukocyte Esterase Small (1+) H (Negative) Urine RBC 0-2 (0-2) /HPF Urine WBC 0-5 (0-5) /HPF Ur Squamous Epith Cells 0-2 (0-2) /HPF Urine Bacteria None Seen (None Seen) Hyaline Casts 0-2 (0-2) /LPF Independent Interpretation I performed an independent interpretation of an: CT Scan Radiology Impression Discussion of test interpretation with radiology: I have reviewed the radiologist's reading. External Record Review External record reviewed: Other (Prior ED visit) Discharge Plan Discharge Clinical Impression: Hematoma Patient Disposition: Home, Self-Care Instructions: Head Injury (ED), Hematoma (ED), Bone Bruise (ED) Additional Instructions: Continue taking your oxycodone for pain relief as prescribed. Recommend cold compression on hematoma. return to the ED for increased size of hematoma, chest pain, shortness of breath, nausea, vomiting, headache, blood in stool, blood in urine, coughing up blood, or any other concerning symptoms. Please follow-up with primary care provider. Prescriptions: No Action prednisone 20 mg tablet 40 mg PO DAILY 5 Days Qty: 10 0RF cyclobenzaprine 10 mg tablet 10 mg PO Q8H Qty: 14 0RF Zyrtec 10 mg capsule 10 mg PO DAILY PRN (Reason: allergy symptoms) Qty: 14 0RF diphenhydramine HCl [Benadryl] 25 mg capsule 25 mg PO TID PRN (Reason: allergic reaction) Qty: 14 0RF hydrocortisone [Anti-Itch (HC)] 1 % ointment 1 appl topical BID PRN (Reason: rash) Qty: 453.6 0RF cefuroxime axetil 250 mg tablet 250 mg PO BID 7 Days Qty: 14 0RF Interventions: ED Discharge Assessment Last Done: 05/24/23 01:10 Discharge Date/Time: 05/24/23 01:11 Print Language: [place]i
--- NOTE | 2023-05-23 15:49 | ECG_ITS ---
Test Reason : fall Blood Pressure : / mmHG Vent. Rate : 078 BPM Atrial Rate : 078 BPM P-R Int : 118 ms QRS Dur : 088 ms QT Int : 386 ms P-R-T Axes : 081 055 065 degrees QTc Int : 440 ms Normal sinus rhythm Minimal voltage criteria for LVH, may be normal variant ( Kenny product ) Nonspecific ST abnormality Abnormal ECG When compared with ECG of 15-OCT-2022 15:32, No significant change was found Referred By: Valerie Caballero Electronically Signed By:FREYA JENKINS
[2023-05-23 16:31] LABS: MANUAL DIFF FLAG NO
[2023-05-23 16:35] LABS: Basophils Percent Auto 0.4 % (0-2); Eosinophils Absolute Auto 0.1 X10*3/uL (0.0-0.4); Eosinophils Percent Auto 2.5 % (0-4); Hematocrit 28.4 % (37.0-47.0); Hemoglobin 9.7 g/dl (12.0-16.0); Imm Gran Abs Auto 0.01 X10*3/uL (0.00-0.03); Imm Gran Pct Auto 0.2 % (0.0-0.4); Lymphocytes Absolute Auto 0.7 X10*3/uL (1.2-4.9); Lymphocytes Percent Auto 13.3 % (20-40); Mean Corpuscular HGB Conc 34.2 g/dl (31.0-35.0); Mean Corpuscular Hemoglobin 35.3 pg (27.0-33.0); Mean Corpuscular Volume 103.3 fL (80.0-98.0); Mean Platelet Volume 10.2 fL (9.4-12.3); Monocytes Absolute Auto 0.5 X10*3/uL (0.1-1.2); Monocytes Percent Auto 9.2 % (2-11); Neutrophils Absolute Auto 4.1 x10*3/uL (2.0-8.3); Neutrophils Percent Auto 74.4 % (45-73); Platelet Count 204 X10*3/uL (160-400); Red Blood Count 2.75 X10*6/uL (4.20-5.50); Red Cell Distribution Width 16.7 % (11.0-16.0); White Blood Count 5.6 X10*3/uL (4.8-10.8)
[2023-05-23 16:45] LABS: INTERNATIONAL NORM RATIO 0.9 (0.9-1.1); Prothrombin Time 11.1 SEC (11.1-13.3)
[2023-05-23 16:46] LABS: Alanine Aminotransferase 33 U/L (0-31); Alkaline Phosphatase 88 U/L (39-117); Anion Gap 11 (12-20); Aspartate Amino Transferase 30 U/L (5-31); Bilirubin Direct 0.2 mg/dL (0.0-0.5); Bilirubin Total 0.5 mg/dL (0.0-1.0); Blood Urea Nitrogen 21 mg/dL (9-16); Carbon Dioxide 29 mmol/L (22-29); Chloride 98 mmol/L (96-108); Creatinine Clr Calc Pharmacy 50.3; Estimated Glomerular Filt Rate > 60; Glucose Random 118 mg/dL (60-115); Sodium 134 mmol/L (135-145); Total Protein 5.9 g/dL (6.5-8.0)
[2023-05-23 16:48] LABS: Partial Thromboplastin Time 31.2 SEC (26.0-36.4)
[2023-05-23 20:01] VITALS: BP 113/62; PULSE 79; O2SAT 97
[2023-05-23 22:24] LABS: Appearance Urine Clear; Color Urine Yellow; Glucose Urine UA Negative (Negative); Leukocyte Esterase Urine Small (1+) (Negative); Nitrite Urine Negative (Negative); UMIC TRIGGER UACC YES; Urine Blood Negative (Negative); Urine Ketones Negative (Negative); Urine Protein Negative (Neg-Trace)
--- NOTE | 2023-05-23 22:35 | PC.NURSE ---
20g IV placed in left lateral AC CT scan notified- pt to have CT of femur with contrast call iverson within reach
[2023-05-23 22:36] LABS: Bacteria Urine None Seen (None Seen); Hyaline Casts Urine 0-2 /LPF (0-2); RBC Urine 0-2 /HPF (0-2); Squamous Epithelial Cell Urine 0-2 /HPF (0-2); UACC Culture Trigger YES; WBC Urine 0-5 /HPF (0-5)
[2023-05-23] MEDS: iohexoL 350 MG/ML 100 ML INFUS..BTL IV (22:49)
== END 2023-05-24 01:11 | disposition home or self-care (01) ==
PROVIDERS: Physician Assistant; Emergency Provider Internal Medicine; PCP Internal Medicine
DX: S70.02XA Contusion of left hip, initial encounter (principal); R51.9 Headache, unspecified; M54.2 Cervicalgia; R94.31 Abnormal electrocardiogram [ECG] [EKG]; X58.XXXA Exposure to other specified factors, initial encounter; Y93.9 Activity, unspecified; Y92.9 Unspecified place or not applicable; Y99.9 Unspecified external cause status; Z79.899 Other long term (current) drug therapy
CPT/HCPCS: 36415; 70450; 72125; 73701; 80048; 80076; 81001; 83735; 85025; 85610; 85730; 87086; 93005; 99284; Q9967

== ENCOUNTER 2023-10-13 14:43 | Outpatient (AMB) | payer MEDICARE, MEDICAID, SELFPAY ==
[2023-10-13 14:58] VITALS: BP 163/79; PULSE 79; RESP 16; O2SAT 95; BMI 18.3
--- NOTE | 2023-10-13 14:58 | A.OFFVIS_ITS ---
Intake Vital Signs 10/13/23 14:58 Height 5 ft 8 in Weight 120 lb 4 oz BMI 18.3 BP 163/79 H Blood Pressure Location Lt brachial Position Sitting Respiration 16 Pulse 79 Pulse Source Pulse Oximeter Pulse Oximetry (%) 95 Oxygen Delivery Method Room Air Intake Visit Reasons: Post Herpetic Neuralgia - Confirmed Allergies vancomycin [VANCOMYCIN] Allergy (Mild, Verified 10/13/23 14:51) HIVES imipenem [IMIPENEM] Allergy (Unknown, Verified 10/13/23 14:51) HIVES Penicillins [PENICILLINS] Allergy (Unknown, Verified 10/13/23 14:51) UNKNOWN lisinopril [LISINOPRIL] Adverse Reaction (Unknown, Verified 10/13/23 14:51) COUGH Penicillin Allergy (Unknown, Uncoded 05/23/23 15:46) Hives HPI HPI Comments History of Present Illness Details John is a very pleasant 68-year-old female who presents the office today for evaluation management of her left shoulder and arm pain secondary to post herpetic neuralgia. Patient reports she was diagnosed with shingles August 2022 and has been suffering with post herpetic neuralgia to the left shoulder and arm since She has been taking chronic opioids and gabapentin without improvement of her symptoms She has completed two rounds of physical therapy, most recent was less than 6 months ago but symptoms persists Patient has been to chiropractor, acupuncture and has received injections including nerve blocks epidural steroid injections without improvement of her pain. She was evaluated by [facility] [place] pain management and had topical capsaicin application without improvement. Injections were performed at [facility] Pain today is rated as a 6/10, constant. In terms of muscle damage condition is described as aching, shooting, screening, hot, burning, shocking, tingling, pins and needles. She also reports significant itching to the area over the left scapula Pain is negatively impacting patient's enjoyment of life, general activity, recreational activities. She has not been able to play tennis secondary to the pain which she is most upset about. [facility] Social History Alcohol intake: current Alcohol intake frequency: holidays/special occasions only Substance Use Type: Marijuana Review of Systems Const All systems reviewed & are unremarkable except as noted in HPI and below Physical Exam Vital Signs: Last Vital Signs Pulse 79 10/13/23 14:58 Resp 16 10/13/23 14:58 BP 163/79 H 10/13/23 14:58 Pulse Ox 95 10/13/23 14:58 Oxygen Delivery Method Room Air 10/13/23 14:58 BMI result Body Mass Index 18.3 General: awake, alert, oriented. Answers questions appropriately. Fully engaged in examination. Skin: warm, dry, intact HEENT: Normocephalic. Hearing intact. Cardiac: External chest normal in appearance. Respiratory: No cough, audible wheezing or stridor. Abdomen: without gross distension. MS: No obvious swelling or deformities. Able to stand on bilateral tiptoes and bilateral heels.? Able to transition from sit to stand unassisted. Ambulates with bilaterally normal heel strike and toe off No obvious rashes or discoloration of the skin noted over the left shoulder or scapula Decreased range of motion left shoulder DTR intact Bilateral upper extremity strength 5/5 Nontender over midline cervical vertebrae or paraspinal muscle Spurling negative Neurological: Oriented to person, place, time and situation. Thought process in tact. No gait abnormalities appreciated. Psychiatric: Appropriate mood and affect. Good judgment and insight. Results Reviewed Results Reviewed: 05/23/23 CT/CT cervical spine wo IV con FINDINGS: HEAD: No intracranial mass, hemorrhage, or midline shift is visualized. There is generalized global volume loss. There is mild prominence of the ventricles and the sulci . There is mild hypodensity of the periventricular white matter due to chronic small vessel ischemic disease. There are vascular calcifications of the internal carotid arteries bilaterally. No extra-axial collections are identified. The paranasal sinuses and mastoid air cells are well aerated. CERVICAL SPINE: There is no evidence of acute cervical spine fracture. Vertebral bodies remain normal in height. Cervical vertebrae have normal alignment. There is multilevel degenerative spondylosis of the cervical spine with disc height narrowing and endplate spurs and facet joint arthrosis No pre- or paravertebral soft tissue abnormality is identified. Limited assessment of the lung apices is unremarkable. IMPRESSION: 1. No acute intracranial pathology. 2. No CT evidence of acute cervical spine fracture or traumatic subluxation Assessment & Plan Assessment & Plan (1) Left shoulder pain: Code(s): M25.512 - Pain in left shoulder (2) Post herpetic neuralgia: Code(s): B02.29 - Other postherpetic nervous system involvement Plan Patient presented to the office today for evaluation and management of her chronic right scapular pain secondary to post herpetic neuralgia She has exhausted conservative therapy including OTC medications, topical medications, prescription opiates and gabapentin, PT and steroid injections without improvement. Order placed for PT eval and treat per patient request Fluoroscopy guided diagnostic suprascapular nerve block, if patient reports good results will plan for suprascapular sprint peripheral nerve stimulator placement with local anesthetic All questions and concerns were answered, patient agrees with the plan. Follow up in the office after injection, sooner if needed. Orders: Orders PT Evaluation and Treatment Today M25.512 - Pain in left shoulder Coding Level of Care Code New Pt Level 4 (51189) Diagnoses Left shoulder pain M25.512 Post herpetic neuralgia B02.29
== END 2023-10-13 15:28 | disposition home or self-care (01) ==
PROVIDERS: PCP Internal Medicine; Referring Provider Nurse Practitioner Primary Care; Visit Provider Registered Nurse Emergency
DX: M25.512 Pain in left shoulder (principal); B02.29 Other postherpetic nervous system involvement
CPT/HCPCS: 99204

== ENCOUNTER → 2023-10-13 14:43 | Outpatient (BNVA) | payer MEDICARE, MEDICAID, SELFPAY | PROVIDERS: PCP Internal Medicine; Referring Provider Nurse Practitioner Primary Care; Visit Provider Registered Nurse Emergency | DX: M25.512 Pain in left shoulder (principal); B02.29 Other postherpetic nervous system involvement | CPT/HCPCS: 99202 ==

== ENCOUNTER 2023-10-28 08:53 | Outpatient (AMB) | payer MEDICARE, MEDICAID, SELFPAY ==
--- NOTE | 2023-10-28 09:10 | MHC.OFFVIS ---
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 Denies any recent cough, cold, infection, fever, or other significant changes in medical history since the last office visit. She was diagnosed with shingles infection in 08/2022 and has been suffering from post-herpetic neuralgia to the left shoulder and left arm region. She has tried gabapentin and opioid medications without any relief. She has exhausted two rounds of physical therapy, a chiropractor, acupuncture, and topical capsaicin application, and has received injections at [facility], including nerve blocks and epidural steroid injections. [facility] Social History Alcohol intake: current Alcohol intake frequency: holidays/special occasions only Substance Use Type: Marijuana Review of Systems Const All systems reviewed & are unremarkable except as noted in HPI and below Physical Exam Vital Signs: Last Vital Signs Pulse 77 10/28/23 09:11 BP 180/84 H 10/28/23 09:11 Pulse Ox 96 10/28/23 09:11 Oxygen Delivery Method Room Air 10/28/23 09:11 BMI result Body Mass Index 18.2 General: Appears afebrile. Alert and oriented. Mood and affect appropriate. Follows and participates in conversation appropriately. Respiratory effort is unlabored. Able to transition from sit to stand unassisted. Ambulates with bilaterally normal heel strike and toe off. Office Procedures Nerve Block Details: Left diagnostic suprascapular nerve block, ultrasound guided After obtaining written consent, pre-procedure blood pressure and heart rate were stable and recorded in the nursing record. The patient was placed in the sitting position. The area overlying the peripheral nerve was widely prepped with chloraprep, allowed to dry and sterilely draped. Using ultrasound, the appropriate landmarks were identified. An 80 mm 21 gauge echostim needle was advanced under ultrasound guidance to the suprascapular notch. Aspiration was negative for heme and synovial fluid. 2 cc of ropivacaine 0.5% was injected around the targeted nerve. The needles were removed, skin cleansed and a sterile bandage was applied. The patient tolerated the procedure well and no complications were encountered. Following the procedure the patient's vital signs were stable. The patient was discharged home in good condition with post-procedural instructions. Time Out: Immediately prior to the procedure, the following was verbally confirmed that there is a signed consent form and that the correct patient, planned procedure, site and side are consistent with documentation and that necessary equipment and/or blood products are available prior to the start of the case. Complications: none EBL: <5 cc Note: An ultrasound image of the injection was taken and stored in the permanent record. 10685 - Suprascapular (Left, Ultrasound guided) Procedure code (CPT) selection complete Results Reviewed Results Reviewed: No imaging is available for review. Assessment & Plan Assessment & Plan (1) Post herpetic neuralgia: Code(s): B02.29 - Other postherpetic nervous system involvement (2) Left shoulder pain: Code(s): M25.512 - Pain in left shoulder Plan Patient is status post left diagnostic suprascapular nerve block, ultrasound guided. Patient tolerated procedure well and was discharged home in stable condition with discharge instructions. All questions were answered. If she has no adequate response to diagnostic injection, I did discuss with her the potential for spinal cord stimulation as a potential therapy for refractory post-herpetic neuralgia. Scribed for Dr. Guallpa by Francisco Javier Weiss, medical researcher, on 10/28/2023. I, Dr. Guallpa, have personally reviewed and agree with the information entered by the scribe. Coding Level of Care Code Est Pt Level 3 (24923) Diagnoses Post herpetic neuralgia B02.29 Left shoulder pain M25.512 CPT Codes Nerve Block - Nerve Block 4: 03060 - Suprascapular ([id number])
[2023-10-28 09:11] VITALS: BP 180/84; PULSE 77; O2SAT 96; BMI 18.2
== END 2023-10-28 09:48 | disposition home or self-care (01) ==
PROVIDERS: PCP Internal Medicine; Referring Provider Internal Medicine; Visit Provider Internal Medicine
DX: B02.29 Other postherpetic nervous system involvement (principal); M25.512 Pain in left shoulder
CPT/HCPCS: 64418; 76942; 99213

== ENCOUNTER → 2023-10-28 08:53 | Outpatient (BNVA) | payer MEDICARE, MEDICAID, SELFPAY | PROVIDERS: PCP Internal Medicine; Visit Provider Internal Medicine | DX: M25.512 Pain in left shoulder (principal); B02.29 Other postherpetic nervous system involvement | CPT/HCPCS: 64418; 99212; J2795 ==

== ENCOUNTER 2023-11-04 09:07 | Outpatient (AMB) | payer MEDICARE, MEDICAID, SELFPAY ==
--- NOTE | 2023-11-04 09:10 | MHC.OFFVIS ---
Intake Vital Signs 11/04/23 09:12 Height 5 ft 8 in Weight 120 lb BMI 18.2 BP 159/72 H Blood Pressure Location Lt brachial Position Sitting Respiration 12 Pulse 67 Pulse Source Pulse Oximeter Pulse Oximetry (%) 99 Oxygen Delivery Method Room Air Intake Visit Reasons: s/p Left Dx suprascapular NB Allergies vancomycin [VANCOMYCIN] Allergy (Mild, Verified 11/04/23 09:14) HIVES imipenem [IMIPENEM] Allergy (Unknown, Verified 11/04/23 09:14) HIVES Penicillins [PENICILLINS] Allergy (Unknown, Verified 11/04/23 09:14) UNKNOWN lisinopril [LISINOPRIL] Adverse Reaction (Unknown, Verified 11/04/23 09:14) COUGH Penicillin Allergy (Unknown, Uncoded 11/04/23 09:14) Hives Medication List - Last Reconciled 11/04/23 by Kaur Milan LPN cetirizine (Zyrtec) 10 mg PO DAILY PRN diphenhydramine HCl (Benadryl) 25 mg PO TID PRN estradiol 0.01%(0.1mg/gram) vaginal famotidine 20 mg PO BID folic acid 1 mg PO DAILY gabapentin mg PO hydrocortisone 1% (Anti-Itch (hydrocortisone)) 1 appl topical BID PRN hydroxyzine HCl 25 mg PO TID losartan 25 mg PO DAILY mirtazapine 7.5 mg PO BEDTIME oxycodone mg PO pilocarpine HCl 5 mg PO TID vortioxetine (Trintellix) 20 mg PO DAILY HPI s/p Left Dx suprascapular NB HPI Details The patient is a 68-year-old female who presents today to the office for a status post left diagnostic suprascapular nerve block. The patient reports no relief following the procedure. She tried Dupixent injections every other week, which she suspected were not working, and discontinued them; however, it got worse. She has now resumed them. She takes gabapentin 600 mg TID. She has been taking oxycodone 65 mg and marijuana/THC gummies to manage her pain. She tried [place] herbs with no benefit. She continues acupuncture with minimal to moderate relief.? Past procedures: 10/28/23: Left diagnostic suprascapular nerve block, ultrasound guided: No relief. PFSH Social History Alcohol intake: current Alcohol intake frequency: holidays/special occasions only Substance Use Type: Marijuana Review of Systems Const All systems reviewed & are unremarkable except as noted in HPI and below Physical Exam Vital Signs: Last Vital Signs Pulse 67 11/04/23 09:12 Resp 12 11/04/23 09:12 BP 159/72 H 11/04/23 09:12 Pulse Ox 99 11/04/23 09:12 Oxygen Delivery Method Room Air 11/04/23 09:12 BMI result Body Mass Index 18.2 General: Appears afebrile. Alert and oriented. Mood and affect appropriate. Follows and participates in conversation appropriately. Respiratory effort is unlabored. Able to transition from sit to stand unassisted. Ambulates with bilaterally normal heel strike and toe off. Results Reviewed Results Reviewed: No imaging is available for review. Assessment & Plan Assessment & Plan (1) Post herpetic neuralgia: Code(s): B02.29 - Other postherpetic nervous system involvement (2) Left shoulder pain: Code(s): M25.512 - Pain in left shoulder Plan I prescribed her Lyrica 100 mg PO T.I.D. for her pain and will see if that is more helpful in relieving her symptoms compared to the gabapentin. I counseled her to watch for side effects. If she does experience side effects from pregabalin, she can switch back to gabapentin. If she just does not get relief, we can titrate up on the dosage of the pregabalin. I also once again discussed spinal cord stimulation, which she is hesitant to proceed with. We also talked about the PNS trial at the interscalene level, with the caveat that there is a high likelihood of the lead being dislodged, especially given her active lifestyle. For now, we will see how she does with the medication change and go from there. Scribed for Dr. Guallpa by Frnacisco Javier Weiss, medical officer psychiatry, on 11/04/2023. I, Dr. Guallpa, have personally reviewed and agree with the information entered by the scribe. Medications: New pregabalin 100 mg PO TID 90 caps 0RF Coding Level of Care Code Est Pt Level 4 (44119) Diagnoses Post herpetic neuralgia B02.29 Left shoulder pain M25.512
[2023-11-04 09:12] VITALS: BP 159/72; PULSE 67; RESP 12; O2SAT 99; BMI 18.2
== END 2023-11-04 09:40 | disposition home or self-care (01) ==
PROVIDERS: PCP Internal Medicine; Visit Provider Internal Medicine
DX: M25.512 Pain in left shoulder (principal); B02.29 Other postherpetic nervous system involvement
CPT/HCPCS: 99214

== ENCOUNTER → 2023-11-04 09:07 | Outpatient (BNVA) | payer MEDICARE, MEDICAID, SELFPAY | PROVIDERS: PCP Internal Medicine; Visit Provider Internal Medicine | DX: M25.512 Pain in left shoulder (principal); B02.29 Other postherpetic nervous system involvement | CPT/HCPCS: 99212 ==

== ENCOUNTER 2023-11-23 08:38 | Outpatient (AMB) | payer MEDICARE, MEDICAID, SELFPAY ==
--- NOTE | 2023-11-23 07:05 | MHC.OFFVIS ---
Intake Vital Signs 11/23/23 08:46 Height 5 ft 8 in Weight 120 lb BMI 18.2 BP 110/60 Blood Pressure Location Lt brachial Position Sitting Respiration 12 Pulse 84 Pulse Source Pulse Oximeter Pulse Oximetry (%) 98 Oxygen Delivery Method Room Air Intake Visit Reasons: Pregabalin f/u Allergies vancomycin [VANCOMYCIN] Allergy (Mild, Verified 11/04/23 09:14) HIVES imipenem [IMIPENEM] Allergy (Unknown, Verified 11/04/23 09:14) HIVES Penicillins [PENICILLINS] Allergy (Unknown, Verified 11/04/23 09:14) UNKNOWN lisinopril [LISINOPRIL] Adverse Reaction (Unknown, Verified 11/04/23 09:14) COUGH Medication List - Last Reconciled 11/23/23 by Kaur Milan LPN estradiol 0.01%(0.1mg/gram) vaginal famotidine 20 mg PO BID folic acid 1 mg PO DAILY gabapentin mg PO hydrocortisone 1% (Anti-Itch (hydrocortisone)) 1 appl topical BID PRN hydroxyzine HCl 25 mg PO TID losartan 25 mg PO DAILY mirtazapine 7.5 mg PO BEDTIME oxycodone mg PO pregabalin 100 mg PO TID vortioxetine (Trintellix) 20 mg PO DAILY HPI Pregabalin f/u HPI Details 68-year-old female who presents today to the office for follow up after trial of transitioning from gabapentin to pregabalin. Initially she felt that the pregabalin was slightly more helpful but then this benefit started to wane. The transition was complicated by a fall, where she tripped on a step and fell down face 1st, suffering lacerations and bruising to her face. Since then she has had worsening of her left shoulder pain that she attributes to a combination of the facts of the fall and the transition from gabapentin to pregabalin. Yesterday she switched back to gabapentin since she felt better while she was taking the gabapentin as compared to what she has been feeling recently. She is also undergoing acupuncture and taking THC supplements. She has not interested in spinal cord stimulation at this time given the invasiveness of the procedure. She is also taking vortioxetine prescribed by her psychiatrist for major depression. She was interested in trialing duloxetine for her pain, but she does not want to transition off the vortioxetine at this time. Past procedures: 02/23/24: Left diagnostic suprascapular nerve block, ultrasound guided: No relief. [facility] Social History Alcohol intake: current Alcohol intake frequency: holidays/special occasions only Substance Use Type: Marijuana Review of Systems Const All systems reviewed & are unremarkable except as noted in HPI and below Physical Exam Vital Signs: Last Vital Signs Pulse 84 11/23/23 08:46 Resp 12 11/23/23 08:46 BP 110/60 11/23/23 08:46 Pulse Ox 98 11/23/23 08:46 Oxygen Delivery Method Room Air 11/23/23 08:46 BMI result Body Mass Index 18.2 General: Appears afebrile. Alert and oriented. Mood and affect appropriate. Follows and participates in conversation appropriately. Respiratory effort is unlabored. Able to transition from sit to stand unassisted. Abrasions to lips and nose, scabbed over. Results Reviewed Results Reviewed: 04/11/23: MRI cervical spine Assessment & Plan Assessment & Plan (1) Post herpetic neuralgia: Code(s): B02.29 - Other postherpetic nervous system involvement (2) Left shoulder pain: Code(s): M25.512 - Pain in left shoulder Plan I had a discussion with her regarding high cervical spinal cord stimulation for her refractory postherpetic neuralgia. She is currently engaged in conservative measures including THC supplementation and acupuncture. I encouraged her to continue doing these. She is also going to continue with gabapentin that she was previously taking. If at any point, she decides to move forward with spinal cord stimulation placement, we will initiate proceedings for behavioral health clearance. Scribed for Dr. Guallpa by Alisa Russell, biomedical engineering aide, on 11/23/2023. I, Dr. Guallpa, have personally reviewed and agree with the information entered by the scribe. Telehealth Telehealth Telehealth method: video Minutes spent on Phone/Video with Pt.: 12 Coding Level of Care Code Est Pt Level 3 (92204) Diagnoses Post herpetic neuralgia B02.29 Left shoulder pain M25.512
[2023-11-23 08:46] VITALS: BP 110/60; PULSE 84; RESP 12; O2SAT 98; BMI 18.2
== END 2023-11-23 09:22 | disposition home or self-care (01) ==
LOC: HO.PMC 08:38
PROVIDERS: PCP Internal Medicine; Visit Provider Internal Medicine
DX: B02.29 Other postherpetic nervous system involvement (principal); M25.512 Pain in left shoulder
CPT/HCPCS: 99213

== ENCOUNTER → 2023-11-23 08:38 | Outpatient (BNVA) | payer MEDICARE, MEDICAID, SELFPAY | PROVIDERS: PCP Internal Medicine; Visit Provider Internal Medicine | DX: B02.29 Other postherpetic nervous system involvement (principal); M25.512 Pain in left shoulder | CPT/HCPCS: 99212 ==

== ENCOUNTER 2023-12-14 14:58 | Outpatient (AMB) | payer MEDICARE, MEDICAID, SELFPAY ==
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
== END 2023-12-14 15:00 | disposition home or self-care (01) ==
LOC: HO.HOP 14:58
PROVIDERS: PCP Internal Medicine; Visit Provider Clinical Nurse Specialist Psychiatric/Mental Health
DX: F42.2 Mixed obsessional thoughts and acts (principal); F34.1 Dysthymic disorder
CPT/HCPCS: 99214

== ENCOUNTER → 2023-12-14 14:58 | Outpatient (BNVA) | payer MEDICARE, MEDICAID, SELFPAY | PROVIDERS: PCP Internal Medicine; Visit Provider Clinical Nurse Specialist Psychiatric/Mental Health | DX: F42.2 Mixed obsessional thoughts and acts (principal); F34.1 Dysthymic disorder | CPT/HCPCS: 99212 ==

== ENCOUNTER 2024-01-20 09:28 | Outpatient (AMB) | payer MEDICARE, MEDICAID, SELFPAY ==
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
== END 2024-01-20 10:16 | disposition home or self-care (01) ==
LOC: HO.HOP 09:28
PROVIDERS: PCP Internal Medicine; Visit Provider Clinical Nurse Specialist Psychiatric/Mental Health
DX: F42.2 Mixed obsessional thoughts and acts (principal); F34.1 Dysthymic disorder; B02.29 Other postherpetic nervous system involvement
CPT/HCPCS: 99215

== ENCOUNTER → 2024-01-20 09:28 | Outpatient (BNVA) | payer MEDICARE, MEDICAID, SELFPAY | PROVIDERS: PCP Internal Medicine; Visit Provider Clinical Nurse Specialist Psychiatric/Mental Health | DX: F42.2 Mixed obsessional thoughts and acts (principal); F34.1 Dysthymic disorder; B02.29 Other postherpetic nervous system involvement | CPT/HCPCS: 99212 ==

== ENCOUNTER 2024-02-20 14:20 | Outpatient (AMB) | payer MEDICARE, MEDICAID, SELFPAY ==
--- OUTSIDE RECORDS SUMMARY | 2024-02-20 14:22 | XMS_ITS | Continuity of Care Document ---
Author Organization [facility] Address [address] [place] [address]- Care Team Providers Care Warp Coiler Name Role Phone Rah ROBERSON, Eva Senll Primary Care Physician Encounter [facility] Date(s): 04/01/23 - 05/01/23 [facility] [address] [place] [id number]- Allergies, Adverse Reactions, Alerts Substance Reaction Severity Status lisinopril cough Active cephalosporins rash Active penicillins Rash Active Vanoxide-HC rash Active cilastatin rash Active imipenem rash Active Medications acetaminophen 500 mg oral capsule 2 capsule = 1,000 mg, By Mouth, Every 6 hours, PRN Pain, # 24 capsule, 0 Refills, Maintenance, Capsule Start Date: 02/04/11 Status: Ordered Atarax Tablet By Mouth, 4 times a day, 0 Refills, Maintenance, 10/21/22 14:18:00 EST, Partial fill upon patient request if the prescription is for a schedule II opioid drug. Start Date: 10/21/22 Status: Ordered Efudex 5% topical cream 1 applicator, Topically, 2 times a day, PRN Other, as instructed for skin issue on hand, 0 Refills,Maintenance, 08/21/14 14:35:34 EST Start Date: 08/21/14 Status: Ordered Folic Acid = 1 mg, By Mouth, Daily in AM, 0 Refills, Maintenance, 08/21/14 14:35:41 EST Start Date: 08/21/14 Status: Ordered gabapentin 300 mg oral capsule 600 mg, 2, capsule, By Mouth, 3 times a day, Refills 0, Maintenance, 10/24/20 8:46:00 EST, Partial fill upon patient request if the prescription is for a schedule II opioid drug. Start Date: 10/24/20 Status: Ordered franco calcium citrate with Mg,Zinc,andD3 denver calcium citrate with Mg,Zinc,andD3, 1, tablet, By Mouth, Daily in AM, Refills 0, Maintenance, 10/24/20 9:05:00 EST, Supply Start Date: 10/24/20 Status: Ordered Lorazepam = 1 mg, By Mouth, 4 times a day, PRN as needed for anxiety, may take .5 mg, 0 Refills, Maintenance,08/21/14 14:34:29 EST Start Date: 08/21/14 Status: Ordered Niacinamide 2 capsules, By Mouth, 2 times a day, 0 Refills, Maintenance, 10/24/20 9:10:00 EST, Partial fill upon patient request if the prescription is for a schedule II opioid drug. Start Date: 10/24/20 Status: Ordered oxyCODONE 5 mg oral capsule 2 capsule = 10 mg, By Mouth, Every 4 hours, PRN as needed for pain, 0 Refills, Maintenance, 10/24/20 9:04:00 EST, Capsule, Partial fill upon patient request if the prescription is for a schedule II opioid drug. Start Date: 10/24/20 Status: Ordered Probiotic Formula 1 capsule, By Mouth, Daily in AM, 0 Refills, Maintenance, 10/24/20 9:12:00 EST, Partial fill upon patient request if the prescription is for a schedule II opioid drug. Start Date: 10/24/20 Status: Ordered Trintellix 20 mg oral tablet 1 tablet = 20 mg, By Mouth, Daily at bedtime, Maintenance, 10/24/20 8:50:00 EST, Tablet, Partial fill upon patient request if the prescription is for a schedule II opioid drug. Start Date: 10/24/20 Status: Ordered Valtrex 500 mg oral tablet 2 tablet = 1,000 mg, By Mouth, Every 12 hours, 0 Refills, Maintenance Start Date: 12/21/09 Status: Ordered Vitamin K2 and D3 Vitamin K2 and D3, 1 gel, By Mouth, Daily in AM, Refills 0, Maintenance, 10/24/20 9:08:00 EST, Supply Start Date: 10/24/20 Status: Ordered Problem List Condition Confirmation Course Effective Dates Status Health St atus Informant Fecal incontinence Confirmed Active Post herpetic neuralgia Confirmed Active Underweight Confirmed Active Social History Social History Type Response Smoking Status Never smoker entered on: 08/21/14 Sex Patient Care team information Care Team Personnel Name: Hussein KINNEY, Mable Position: S RN Member Role: Primary Care Nurse Name: Eva Monreal MD Position: [facility] Outreach Member Role: PCP Address: Address: [address] [place] [phone]- Care Team Related Persons Name: GILBERT LAN Address: home [address] [place] [id number] Name: PETERSON LAN Address: [place] [address] Name: GILBERT CUADRA Address: home REFUSED
--- OUTSIDE RECORDS SUMMARY | 2024-02-20 14:22 | XMS_ITS | Patient Health Record ---
Author Organization [facility] Address [address] [address] Care Team Providers Care Stock Fitter Name Role Phone vEa Monreal Primary Care Provider Unavailabl MANUEL Maharaj Unavailable [phone] ALLERGIES Allergen (clinical drug ingredient) Drug/Non Drug Allergy documented on EMR Reaction Allergy Type Onset Date Status amlodipine Amlodipine Unknown Drug Allergy Activ e amoxicillin Amoxicillin Unknown Drug Allergy Act le lisinopril Lisinopril Unknown Drug Allergy Activ e REASON FOR REFERRAL Reason Left lower extremity venous stasis dermatitis changes with edema. ? venous reflux Diagnosis 1 Edema of left lower extremity due to peripheral venous insufficiency (I87.2) Diagnosis 2 Lower extremity veno us stasis (I87.8) Referral Organization [facility] Referring Provider First Name MANUEL Referring Provider Last Name MEDHAT Referring Provider Speciality Podiatry Referred Provider Specialty Intervention al Radiology Referral Priority Routine MEDICATIONS Medication SIG (Take, Route, Frequency, Duration) Notes Start Date End Date Status Gabapentin 300 MG 1 capsule Orally Onc e a day Active PreviDent 1.1 % as directed Dental Active LORazepam 1 MG 1 tablet at bedtime as needed Orally Once a day Active Nystatin-Triamcinolone 915751-8.1 UNIT/GM 1 application Externally Twice a day Active Fluorouracil 5 % 1 application Brand Coordinator ally Twice a day Active oxyCODONE HCl 5 MG 2 tablets as needed Orally every 4 hrs Active Probiotic Active Multivitamin - 1 tablet Orally Once a day Active Tacrolimus 0.1 % 1 application Brand Coordinator ally Once a day Active Mupirocin 2 % 1 application Brand Coordinator ally Twice a day Active Tretinoin 0.025 % 1 application in the evening to face Externally Once a day Active Losartan Potassium 25 MG 1 tablet Orally Once a day Active Valtrex 500 MG 1 tablet Orally Once a day Active Mirtazapine 7.5 MG 1 tablet Orally Once a day Active Cevimeline HCl 30 MG 1 capsule Orally Th ree times a day Active Clobetasol Propionate 0.05 % 1 application Externally Twice a day Active Clobetasol Propionate 0.05 % 1 application Externally Twice a day Active cycloSPORINE 0.05 % 1 drop into affected eye Ophthalmic Twice a day Active dexAMETHasone 0.5 MG/5ML 10 mL Orally every 6 hrs Active Dupixent 300 MG/2ML as directed Subcutaneous Active Estrace 0.1 MG/GM as directed Vaginal Active Famotidine 20 MG 1 tablet at bedtime as needed Orally Once a day Active Calcium 600+D3 Activ e Mirtazapine 7.5 MG 2 tablets at bedtime Orally Once a day Active Folic Acid 1 MG as directed Orally Active Mupirocin 2 % 1 application Brand Coordinator ally Twice a day Active Niacinamide 500 MG 1 tablet Orally Once a day Active Nystatin 047511 UNIT/ML 4 mL Mouth/Throa t Four times a day Active Furosemide 20 MG 1 tablet Orally Once a day Active Ciclopirox 8 % 1 application Brand Coordinator ally to toenail Once a day for 30 days 02/01/2024 Active Folic Acid 1 MG 1 tablet Orally Once a day Active Calcipotriene 0.005 % 1 application Exte rnally Twice a day Active Gabapentin 300 MG 1 capsule Orally Onc e a day Active hydrOXYzine HCl 25 MG 1 tablet as needed Orally Once a day Active Ketoconazole 2 % as directed Externally Active Lidocaine HCl 2 % 1 application as nee ded Externally Three times a day Active LORazepam 1 MG 1 tablet at bedtime as needed Orally Once a day Active Trintellix 20 MG 1 tablet Orally Once a day Active valACYclovir HCl 1 GM 1 tablet Orally On ce a day Active oxyCODONE HCl 5 MG 1 tablet as needed O rally every 6 hrs Active Probiotic Active PROBLEMS Problem Type ICD Code Onset Dates Problem Status W/U Status Risk SNOMED Code Notes Problem 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 [id number] VITAL SIGNS Heart Rate 63 /min 02/01/2024 Temperature 97.5 degrees Fahrenheit 02/01/2024 Respiratory Rate 16 /min 02/01/2024 Height 5ft 7in in 02/01/2024 Weight 120.9 lbs 02/01/2024 BMI 18.93 kg/m2 02/01/2024 Encounters Encounter Location Date Provider Diagnosis [facility] [address] 02/01/2024 MANUEL TRUJILLOALLEY [facility] [address] 02/01/2024 MANUEL MEDHAT Accessory navicular bone of left foot Q74.2 ; Bony prominence palpable in left ankle M89.8X7 ; Onychomycosis B35.1 ; Lower extremity venous stasis I87.8 and Edema of left lower extremity due to peripheral venous insufficiency I87.2 [facility] [address] 02/02/2024 MANUEL MEDHAT [facility] [address] 01/04/2024 MANUEL MEDHAT [facility] [address] 01/24/2024 MANUEL MEDHAT ASSESSMENTS Encounter Date Diagnosis Assessment Notes Treatment Notes Treatment Clinical Notes 02/01/2024 Accessory navicular bone of left foot (ICD-10 - Q74.2) This is an outpatient visit for evaluation and management of a new patient, which required appropriate review of pertinent medical history, review of any previous imaging, review of all previous records, and examination and decision-making. Time was 35 minutes spent in review of all these facets including face to face discussion with the patient regarding my findings and in discussion of a current and future treatment plan. Three weightbearing radiographs of the left foot were taken in the office and reviewed with the patient. She has a nonpainful protrusion at the left medial arch. This is from an accessory navicular bone. This is just an extra ossicle. No treatment is neccessary unless it become symptomatic. 02/01/2024 Bony prominence palpable in left ankle (ICD-10 - M89.8X7) 02/01/2024 Onychomycosis (ICD-10 - B35.1) Patient has a severly dystrophic left hallux toenail. This is likely due to past trauma to the nail plate, fungus, and systemic effects of her cancer treatments. I advised that topical antifungals are not going to normalize this toenail. They may make the toenail softer and easier to cut. I advised that if the toenail is bothersome it can be permanently removed for her. She expressed understanding. She wished to try the topical antifungals. I sent over a Rx for ciclopirox 8% solution to apply to the toenail daily. She is to remove the layers of medication once a week. 02/01/2024 Lower extremity venous stasis (ICD-10 - I87.8) Patient with erythematous rash to the lower left leg with pitting edema. I am suspicious that this could be venous stasis dermatitis due to underlying venous insufficiency. She has been seeing a Implementation Technician. 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 I have placed a referral with [facility] to see if there is a venous component. She will continue her follow ups with dermatology as well. 02/01/2024 Edema of left lower extremity due to peripheral venous insufficiency (ICD-10 - I87.2) PLAN OF TREATMENT Pending Test Test Name Order Date X ray : Foot, left 3v 02/01/2024 Insurance Providers Payer Name Payer Address Payer Phone Subscriber Number Group Number Insured Name Patient Relationship to Insured Coverage Start Date Coverage End Date [employer] [place] [address] KAMILA IBRAHIM [id number] John Lin Self - patient is the insured MEDICAL (GENERAL) HISTORY Medical History History ICD Code acute myeloblastic leukemia in remission aortic stenosis collagenous colitis depression gastroesophageal reflux disease (GERD) 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
--- OUTSIDE RECORDS SUMMARY | 2024-02-20 14:22 | XMS_ITS | Continuity of Care Document ---
Author Organization [facility] Address [address] [place] [id number]- Care Team Providers Care Pin Puller Name Role Phone Eva Monreal MD Primary Care Physician Encounter [facility] Date(s): 03/11/23 - 04/10/23 [facility] [address] [place] [id number]- Attending Physician: Alexa Lundberg Admitting Physician: Admtr, [id number] Referring Physician: Admtr, [id number] Allergies, Adverse Reactions, Alerts Substance Reaction Severity [...] Status: Ordered franco calcium citrate with Mg,Zinc,andD3 franco calcium citrate [...] Care team information Care Team Personnel Name: Mable Savage RN Position: [facility] RN Member Role: Primary Care Nurse Name: Eva Monreal MD Position: [facility] Outreach Member Role: PCP Address: Address: [address] [place] [address] Care Team Related Persons Name: GILBERT LAN Address: home [address] [place] [id number] Name: PETERSON LAN Address: [place] [address] Name: GILBERT CUADRA Address: home REFUSED
--- OUTSIDE RECORDS SUMMARY | 2024-02-20 14:22 | XMS_ITS | Continuity of Care Document ---
Author Organization [facility] Address [address] [place] [address]- Care Team Providers Care Ems Instructor Name Role Phone Eva Monreal MD Primary Care Physician Encounter [facility] Date(s): 01/27/23 - 02/26/23 [facility] [address] [place] [address]- Allergies, Adverse Reactions, Alerts Substance Reaction Severity Status lisinopril cough Active cephalosporins rash Active penicillins Rash Active Vanoxide-HC rash Active cilastatin rash Active imipenem rash Active Medications acetaminophen 500 mg oral capsule 2 capsule = 1,000 mg, By Mouth, Every 6 hours, PRN Pain, # 24 capsule, 0 Refills, Maintenance, Capsule Start Date: 02/04/11 Status: Ordered Amlodipine = 5 mg, By Mouth, 2 times a day, 0 Refills, Maintenance, 11/21/18 12:02:38 EDT Start Date: 11/21/18 Status: Ordered Atarax Tablet By Mouth, 4 [...] 14:34:29 EST Start Date: 08/21/14 Status: Ordered Lyrica 50 mg oral capsule 2, By Mouth, 2 times a day, 0 Refills, Maintenance, 10/26/22 9:47:00 EST, Partial fill upon patientrequest if the prescription is for a schedule II opioid drug. Start Date: 10/26/22 Status: Ordered Niacinamide 2 capsules, By Mouth, [...] Team Personnel Name: Hussein KINNEY, Mable Position: [facility] RN Member Role: Primary Care Nurse Name: Eva Monreal MD Position: [facility] Outreach Member Role: PCP Address: Address: [address] [place] [id number] Care Team Related Persons Name: GILBERT LAN Address: home [address] [place] [address] Name: PETERSON LAN Address: [place] [address] Name: GILBERT CUADRA Address: home REFUSED
--- OUTSIDE RECORDS SUMMARY | 2024-02-20 14:22 | XMS_ITS | Continuity of Care Document ---
Author Organization [facility] Address [address] [place] [address]- Care Team Providers Care Lay Out Drafter Name Role Phone Rah ROBERSON, Eva Snell Primary Care Physician En[facility] Date(s): 10/21/22 - 12/03/22 [facility] [address] [place] [address]- Attending Physician: Antolin Murray MD Admitting Physician: Antolin Murray MD Allergies, Adverse Reactions, Alerts Substance Reaction [...] Team Personnel Name: Hussein KINNEY, Mable Position: [facility] RN Member Role: Primary Care Nurse Name: Eva Monreal MD Position: [facility] Outreach Member Role: PCP Address: Address: [address] [place] [id number] Care Team Related Persons Name: GILBERT LAN Address: home [address] [place] [address] Name: PETERSON LAN Address: [place] [address] Name: GILBERT CUADRA Address: home REFUSED
--- OUTSIDE RECORDS SUMMARY | 2024-02-20 14:23 | XMS_ITS | Continuity of Care Document ---
Author Organization [facility] Address [address] [place] [address] radha, [address] [place] [address]- Care Team Providers Care Instrumentation Engineering Technician Name Role Phone Rah ROBERSON, Eva Snell Primary Care Physician Encounter [facility] Date(s): 09/28/23 - 10/28/23 [facility] [address] [place] [address] Drive, [address] [place], [place] [address] Allergies, Adverse Reactions, Alerts Substance Reaction Severity [...] opioid drug. Start Date: 10/21/22 Status: Ordered budesonide 3 mg oral delayed release capsule 0 Refills, Maintenance, 09/27/23 13:56:00 EST, Partial fill upon patient request if the prescription is for a schedule II opioid drug. Start Date: 09/27/23 Status: Ordered cevimeline 30 mg oral capsule 0 Refills, Maintenance, 09/27/23 13:57:00 EST, Partial fill upon patient request if the prescription is for a schedule II opioid drug. Start Date: 09/27/23 Status: Ordered dexamethasone 0.5 mg/5 mL oral liquid 0 Refills, Maintenance, 09/27/23 13:57:00 EST, Partial fill upon patient request if the prescription is for a schedule II opioid drug. Start Date: 09/27/23 Status: Ordered Efudex 5% topical cream 1 applicator, Topically, 2 times a day, PRN Other, as instructed for skin issue on hand, 0 Refills,Maintenance, 08/21/14 14:35:34 EST Start Date: 08/21/14 Status: Ordered estradiol 0.1 mg/g vaginal cream 0 Refills, Maintenance, 09/27/23 13:58:00 EST, Partial fill upon patient request if the prescription is for a schedule II opioid drug. Start Date: 09/27/23 Status: Ordered famotidine 20 mg oral tablet Refills 0, Maintenance, 09/27/23 13:56:00 EST, Partial fill upon patient request if the prescription is for a schedule II opioid drug. Start Date: 09/27/23 Status: Ordered Folic Acid = 1 mg, [...] 14:34:29 EST Start Date: 08/21/14 Status: Ordered mirtazapine 7.5 mg oral tablet 0 Refills, Maintenance, 09/27/23 13:56:00 EST, Partial fill upon patient request if the prescription is for a schedule II opioid drug. Start Date: 09/27/23 Status: Ordered naproxen 250 mg oral tablet Refills 0, Maintenance, 09/27/23 13:58:00 EST, Partial fill upon patient request if the prescription is for a schedule II opioid drug. Start Date: 09/27/23 Status: Ordered Niacinamide 2 capsules, By Mouth, [...] List Condition Confirmation Course Effective Dates Status [facility] at Informant Fecal incontinence Confirmed Active Post herpetic neuralgia Confirmed Active Underweight Confirmed Active Social History Social History Type Response Smoking Status Never smoker entered on: 08/21/14 Sex Patient Care team information Care Team Personnel Name: Mable Savage RN Position: [facility] RN Member Role: Primary Care Nurse Name: Eva Monreal MD Position: [facility] Outreach Member Role: PCP Address: Address: [address] [place] [address]- Care Team Related Persons Name: GILBERT LAN Address: home [address] [place] [address] Name: RIKY PETERSON Address: home [place]KNOWN [place] [id number] Name: GILBERT CUADRA Address: home REFUSED
--- OUTSIDE RECORDS SUMMARY | 2024-02-20 14:23 | XMS_ITS | Continuity of Care Document ---
Author Organization [facility] Address [address] [place] [address]- Care Team Providers Care Family And Consumer Sciences Professor Name Role Phone Eva Monreal MD Primary Care Physician En[place] [facility] Date(s): 04/27/23 - 05/27/23 [facility] [address] [place] [address]- Attending Physician: Alexa Lundberg Admitting Physician: Admtr, Alexa Referring Physician: Admtr, Ar8 Allergies, Adverse Reactions, Alerts Substance Reaction Severity Status lisinopril cough Active imipenem rash Active cephalosporins rash Active penicillins Rash Active Vanoxide-HC rash Active cilastatin rash Active Medications acetaminophen 500 [...] Team Personnel Name: Mable Savage RN Position: [facility] RN Member Role: Primary Care Nurse Name: Eva Monreal MD Position: [facility] Outreach Member Role: PCP Address: Address: [address] [place] [address] Care Team Related Persons Name: GILBERT LAN Address: home [address] [place] [address] Name: PETERSON LAN Address: [place] [address] Name: GILBERT CUADRA Address: home REFUSED
--- OUTSIDE RECORDS SUMMARY | 2024-02-20 14:23 | XMS_ITS | Continuity of Care Document ---
Author Organization [facility] Address [address] [place] [address]- Care Team Providers Care Pourer Off Name Role Phone Rah ROBERSON, Eva Snell Primary Care Physician Encounter [facility] Date(s): 12/31/22 - 01/30/23 [facility] [address] [place] [address]- Allergies, Adverse Reactions, Alerts Substance Reaction Severity [...] Team Personnel Name: Hussein KINNEY, Mable Position: [facility] RN Member Role: Primary Care Nurse Name: Eva Monreal MD Position: [facility] Outreach Member Role: PCP Address: Address: [address] [place] [id number] Care Team Related Persons Name: GILBERT LAN Address: home [address] [place] [address] Name: PETERSON LAN Address: [place] [address] Name: GILBERT CUADRA Address: home REFUSED
--- OUTSIDE RECORDS SUMMARY | 2024-02-20 14:23 | XMS_ITS | Continuity of Care Document ---
Author Organization [facility] Address [address] [place] [address]- Care Team Providers Care Wire Temperer Name Role Phone Rah ROBERSON, Eva Snell Primary Care Physician Encounter [facility] Date(s): 02/01/23 - 03/04/23 [facility] [address] [place] [address]- Attending Physician: Antolin Murray MD Admitting Physician: [...] Team Personnel Name: Hussein KINNEY, Mable Position: [facility] RN Member Role: Primary Care Nurse Name: Eva Monreal MD Position: [facility] Outreach Member Role: PCP Address: Address: [address] [place] [id number] Care Team Related Persons Name: GILBERT LAN Address: home [address] [place] [address] Name: PETERSON LAN Address: [place] [address] Name: GILBERT CUADRA Address: home REFUSED
--- OUTSIDE RECORDS SUMMARY | 2024-02-20 14:23 | XMS_ITS | Continuity of Care Document ---
Author Organization [facility] Address [address] [facility], [address] [place] [address]- Care Team Providers Care Assembly Press Operator Name Role Phone Rah ROBERSON, Eva Snell Primary Care Physician Encounter 12/07/23 - 12/14/23 [facility] [address], [address] [place] [address]- Attending Physician: Kristyn Cr MD Admitting Physician: [...] Team Personnel Name: Mable Savage RN Position: [facility] RN Member Role: Primary Care Nurse Name: Eva Monreal MD Position: [facility] Outreach Member Role: PCP Address: Address: [address] [place] [address] Care Team Related Persons Name: GILBERT LAN Address: home [address] [place] [address] Name: PETERSON LAN Address: [place] [address] Name: GILBERT CUADRA Address: home REFUSED [address]
--- OUTSIDE RECORDS SUMMARY | 2024-02-20 14:23 | XMS_ITS | Continuity of Care Document ---
Author Organization [facility] Address [address] [place] [address] [address], [address] [place] [address]- Care Team Providers Care Welding Systems And Equipment Repairer Name Role Phone Rah ROBERSON, Eva Snell Primary Care Physician Encounter [facility] [place] [place] Date(s): 08/08/23 - 09/17/23 [facility] [address] [place] [address] Drive, [address] [place] [address]- Attending Physician: Griselda Fitzpatrick MD Referring Physician: Mariola Hummel NP Allergies, Adverse Reactions, Alerts Substance Reaction Severity [...] Team Personnel Name: Hussein KINNEY, Mable Position: [facility] RN Member Role: Primary Care Nurse Name: Rah ROBERSON, Eva Snell Position: [facility] Outreach Member Role: PCP Address: Address: [address] [place] [address] Care Team Related Persons Name: GILBERT LAN Address: home [address] [place] [address] Name: PETERSON LAN Address: [place] [address] Name: GILBERT CUADRA Address: home [place]FUSED [id number]
--- OUTSIDE RECORDS SUMMARY | 2024-02-20 14:23 | XMS_ITS | Continuity of Care Document ---
Author Organization [facility] Address [address] [place] [address]- Care Team Providers Care Art Editor Name Role Phone Rah ROBERSON, Eva Snell Primary Care Physician En[place] [facility] Date(s): 12/22/22 - 01/21/23 [facility] [address] [place] [address] Attending Physician: Alexa Lundberg Admitting Physician: Alexa [...] Personnel Name: Mable Savage RN Position: [facility] RN Member Role: Primary Care Nurse Name: Eva Monreal MD Position: [facility] Outreach Member Role: PCP Address: Address: [address] [place] [id number] Care Team Related Persons Name: GILBERT LAN Address: home [address] [place] [address] Name: PETERSON LAN Address: [place] [address] Name: GILBERT CUADRA Address: home REFUSED
--- OUTSIDE RECORDS SUMMARY | 2024-02-20 14:23 | XMS_ITS | Continuity of Care Document ---
Author Organization [facility] Address [address] [place] [address] [address], [address] [place] [address]- Care Team Providers Care Senior Linux Systems Administrator Name Role Phone Rah ROBERSON, Eva Snell Primary Care Physician Encounter [facility] [place] [facility] Date(s): 08/08/23 - 09/07/23 [facility] [address] [place] [address] Drive, [address] [place] [address]- Allergies, Adverse Reactions, Alerts Substance Reaction Severity [...] Team Personnel Name: Mable Savage RN Position: S RN Member Role: Primary Care Nurse Name: Eva Monreal MD Position: [facility] Outreach Member Role: PCP Address: Address: [address] [place] [address]- Care Team Related Persons Name: GILBERT LAN Address: home [address] [place] [address] Name: PETERSON LAN Address: [place] [address] Name: GILBERT CUADRA Address: home [place]FUSED [id number]
--- OUTSIDE RECORDS SUMMARY | 2024-02-20 14:23 | XMS_ITS | Continuity of Care Document ---
Author Organization [facility] Address [address] [place] [address]- Care Team Providers Care Resourcing Advisor Name Role Phone Eva Monreal MD Primary Care Physician Encounter [facility] Date(s): 10/21/22 - 11/20/[address] [address] Attending Physician: Admdebbie, Alexa Admitting Physician: Admtr, Alexa Referring Physician: Admtr, [...] opioid drug. Start Date: 10/21/22 Status: Ordered Bactrim DS Tab (Prophylaxis) 1, tablet, By Mouth, 2 times a day, Maintenance, 01/02/13 4:40:45 Start Date: 01/02/13 Status: Ordered Efudex 5% topical cream 1 applicator, Topically, 2 times a day, PRN Other, as instructed for skin issue on hand, 0 Refills,Maintenance, 08/21/14 14:35:34 EST Start Date: 08/21/14 Status: Ordered Folic Acid = 1 mg, By Mouth, Daily in AM, 0 Refills, Maintenance, 08/21/14 14:35:41 EST Start Date: 08/21/14 Status: Ordered gabapentin 300 mg oral capsule 3 capsules, By Mouth, Daily in AM, Refills 0, Maintenance, 10/24/20 8:46:00 EST, Partial fill upon patient request if the prescription is for a schedule II opioid drug. Start Date: 10/24/20 Status: Ordered gabapentin 300 mg oral capsule 4 capsules, By [...] Status: Ordered oxyCODONE 5 mg oral capsule 1 capsule = 5 mg, By Mouth, Every 6 hours, PRN as needed for pain, 0 Refills, Maintenance, :04:00 EST, Capsule, Partial fill upon patient request if the prescription is for a schedule II opioid drug. Start Date: 10/24/20 Status: Ordered prednisone 1 mg oral tablet 1 tablet = 1 mg, By Mouth, Daily in AM, 0 Refills, Maintenance, 01/02/13 4:38:47 EDT Start Date: 01/02/13 Status: Ordered Probiotic Formula 1 capsule, By [...] St atus Informant Fecal incontinence Confirmed Active Underweight Confirmed Active Social History Social History Type Response Smoking Status Never smoker entered on: 08/21/14 Sex Patient Care team information Care Team Personnel Name: Hussein KINNEY, Mable Position: [facility] RN Member Role: Primary Care Nurse Name: Eva Monreal MD Position: [facility] Outreach Member Role: PCP Address: Address: [address] [place] [id number] Care Team Related Persons Name: GILBERT LAN Address: home [address] [place] [address] Name: PETERSON LAN Address: [place] [address] Name: GILBERT CUADRA Address: home REFUSED
--- OUTSIDE RECORDS SUMMARY | 2024-02-20 14:23 | XMS_ITS | Continuity of Care Document ---
Author Organization [facility] Address [address] [place] [address]- Care Team Providers Care Rubber Molder Name Role Phone Eva Monreal MD Primary Care Physician Encounter [facility] Date(s): 02/11/23 - 03/13/23 [facility] [address] [place] [address]- Allergies, Adverse Reactions, Alerts Substance Reaction Severity [...] Personnel Name: Mable Savage RN Position: [facility] RN Member Role: Primary Care Nurse Name: Eva Monreal MD Position: [facility] Outreach Member Role: PCP Address: Address: [address] [place] [address]- Care Team Related Persons Name: GILBERT LAN Address: home [address] [place] [address] Name: PETERSON LAN Address: [place] [address] Name: GILBERT CUADRA Address: home REFUSED
--- OUTSIDE RECORDS SUMMARY | 2024-02-20 14:23 | XMS_ITS | Continuity of Care Document ---
Author Organization [facility] Address [address] [place] [address]- Care Team Providers Care Lean Leader Name Role Phone Rah ROBERSON, Eva Snell Primary Care Physician Encounter [facility] [place] Date(s): 04/15/23 - 05/15/23 [facility] [address] [place] [address]- Allergies, Adverse Reactions, Alerts Substance Reaction Severity [...] Status: Ordered franco calcium citrate with Mg,Zinc,andD3 molt calcium citrate with Mg,Zinc,andD3, 1, tablet, By [...] Care Nurse Name: Eva Monreal MD Position: [facility] Outreach Member Role: PCP Address: Address: [address] [place] [address]- Care Team Related Persons Name: GILBERT LAN Address: home [address] [place] [address] Name: PETERSON LAN Address: [place] [address] Name: GILBERT CUADRA Address: home REFUSED
--- OUTSIDE RECORDS SUMMARY | 2024-02-20 14:23 | XMS_ITS | Continuity of Care Document ---
Author Organization [facility] Address [address] [facility], [address] [place] [address]- Care Team Providers Care Packing Attendant Name Role Phone Rah ROBERSON, Eva Snell Primary Care Physician Encounter 04/29/23 - 05/06/23 [facility] [address], [address] [place] [address]- Attending Physician: Kristyn Cr MD Admitting Physician: [...] herpetic neuralgia Confirmed Active Underweight Confirmed Active Results Radiology Reports * Exam Date Time Procedure Performing Provider Status 04/29/23 4:10 PM MM Digital Mammo Screening Yaneli Fernando; Yuniel (Verified) Notes: (MM Digital Mammo Screening) Reason For Exam: Z12.31 ROUTINE SCREENING RESULT: MM Digital Mammo Screening PROCEDURE: MM Digital Mammo Screening INDICATION: Screening for breast cancer. No known palpable abnormalities. COMPARISON: Back to 01/15/2019. TECHNIQUE:Full-field digital CC and MLO 3D tomosynthesis images of both breasts were acquired. Computer-aided detection (CAD) was utilized in the interpretation of this study. DENSITY: Extremely dense, which lowers the sensitivity of mammography. FINDINGS: No suspicious masses, microcalcifications, areas of architectural distortion, or skin thickening to suggest malignancy. IMPRESSION: No mammographic evidence of malignancy. RECOMMENDATION: Annual mammographic screening. BI-RADS: 1 (Negative) Lay letter mailed to patient WSN: [id number] Ordering Physician: Kristyn Cr Dictated By: Eben Villalobos MD Dictated Date/Time: 04/29/23 4:48 pm Reviewed By: Eben Villalobos MD Signed By: Eben Villalobos MD Signed Date/Time: 04/29/23 4:48 pm Transcribed By: MARLENA Research Engineer Date/Time: 04/29/23 4:46 pm Birads: Social History Social History Type Response Smoking Status Never smoker entered on: 08/21/14 Sex Patient Care team information Care Team Personnel Name: Mable Savage RN Position: [facility] RN Member Role: Primary Care Nurse Name: Eva Monreal MD Position: [facility] Outreach Member Role: PCP Address: Address: [address] [place] [id number] Care Team Related Persons Name: GILBERT LAN Address: home [address] [place] [address] Name: PETERSON LAN Address: [place] [address] Name: GILBERT CUADRA Address: home REFUSED
--- OUTSIDE RECORDS SUMMARY | 2024-02-20 14:23 | XMS_ITS | Continuity of Care Document ---
Author Organization [facility] Address [address] [place] [address]- Care Team Providers Care Supervisory Clerk Name Role Phone Rah ROBERSON, Eva Snell Primary Care Physician Encounter [facility] Date(s): 09/10/22 - 10/21/[address] [address]- Encounter Diagnosis Impingement syndrome of left shoulder(Final) - Discharge Disposition: A-D/C Home Attending Physician: Nirmal Pablo MD Admitting Physician: Nirmal Pablo MD Referring Physician: Nirmal Pablo MD Allergies, Adverse Reactions, Alerts Substance Reaction [...] Confirmation Course Effective Dates Status Health St at Informant Fecal incontinence Confirmed Active Underweight Confirmed Active Social History Social History Type Response Smoking Status Never smoker entered on: 08/21/14 Sex Patient Care team information Care Team Personnel Name: Hussein KINNEY, Mable Position: [facility] RN Member Role: Primary Care Nurse Name: Eva Monreal MD Position: [facility] Outreach Member Role: PCP Address: Address: [address] [place] [id number] Care Team Related Persons Name: GILBERT LAN Address: home [address] [place] [address] Name: PETERSON LAN Address: [place] [address] Name: GILBERT CUADRA Address: home REFUSED
--- OUTSIDE RECORDS SUMMARY | 2024-02-20 14:23 | XMS_ITS | Continuity of Care Document ---
Author Organization [facility] Address [address] [place] [address] [address], [address] [place] [address]- Care Team Providers Care Obiee Obia Solution Architect Name Role Phone Eva Monreal MD Primary Care Physician Encounter [facility] [place] Date(s): 09/27/23 - 10/04/23 [facility] [address] [place] [address] Drive, [address] [place] [address]- Attending Physician: Griselda Fitzpatrick MD Referring Physician: [...] herpetic neuralgia Confirmed Active Underweight Confirmed Active Vital Signs Most recent to oldest [Reference Range]: 1 Height 173 cm (09/27/23 1:50 PM) Weight 53.9 kg (09/27/23 1:50 PM) Body Mass Index [18.5-24.99 kg/m2] 18.01 kg/m2 *L* (09/27/23 1:50 PM) Social History Social History Type Response Smoking Status Never smoker entered on: 08/21/14 Sex Patient Care team information Care Team Personnel Name: Hussein KINNEY, Mable Position: S RN Member Role: Primary Care Nurse Name: Eva Monreal MD Position: [facility] Outreach Member Role: PCP Address: Address: [address] [place] [phone] Care Team Related Persons Name: GILBERT LAN Address: home [address] [place] [address] Name: PETERSON LAN Address: [place] [address] Name: GILBERT CUADRA Address: home [place]USED [address]
--- OUTSIDE RECORDS SUMMARY | 2024-02-20 14:23 | XMS_ITS | Continuity of Care Document ---
Author Organization [facility] Address [address] [place] [address] radha, [address] [place] [address]- Care Team Providers Care Die Cutter Operator Name Role Phone Rah ROBERSON, Eva Snell Primary Care Physician Encounter [facility] Date(s): 09/27/23 - 10/27/23 [facility] [address] [place] [address] Drive, [address] [place] [address]- Attending Physician: AdmAlexa lewis Admitting Physician: AdmtrAlexa Referring Physician: Admtr, Ar8 Allergies, Adverse Reactions, [...] Team Personnel Name: Mable Savage RN Position: [facility] RN Member Role: Primary Care Nurse Name: Eva Monreal MD Position: S Outreach Member Role: PCP Address: Address: [address] [place] [address] Care Team Related Persons Name: GILBERT LAN Address: home [address] [place] [address] Name: RIKY PETERSON Address: [place] [address] Name: GILBERT CUADRA Address: home [place] [id number]
--- OUTSIDE RECORDS SUMMARY | 2024-02-20 14:23 | XMS_ITS | Continuity of Care Document ---
Author Organization [facility] Address [address] [place] [address]- Care Team Providers Care Aircraft Body Repairer Name Role Phone Eva Monreal MD Primary Care Physician Encounter [facility] [place] Date(s): 11/29/22 - 12/29/22 [facility] [address] [place] [address]- Attending Physician: Alexa Lundberg Admitting Physician: AdmtrAlexa Referring Physician: Admtr, ArNayely Allergies, Adverse Reactions, Alerts Substance Reaction Severity [...] Team Personnel Name: Hussein KINNEY, Mable Position: [facility] RN Member Role: Primary Care Nurse Name: Eva Monreal MD Position: [facility] Outreach Member Role: PCP Address: Address: [address] [place] [address] Care Team Related Persons Name: GILBERT LAN Address: home [address] [place] [address] Name: PETERSON LAN Address: [place] [address] Name: GILBERT CUADRA Address: home [place]USED
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
== END 2024-02-20 17:02 | disposition home or self-care (01) ==
LOC: HO.HOP 14:21
PROVIDERS: PCP Internal Medicine; Visit Provider Clinical Nurse Specialist Psychiatric/Mental Health
DX: F42.2 Mixed obsessional thoughts and acts (principal); F34.1 Dysthymic disorder
CPT/HCPCS: 90833; 99214

== ENCOUNTER → 2024-02-20 14:20 | Outpatient (BNVA) | payer MEDICARE, MEDICAID, SELFPAY | PROVIDERS: PCP Internal Medicine; Visit Provider Clinical Nurse Specialist Psychiatric/Mental Health | DX: F42.2 Mixed obsessional thoughts and acts (principal); F34.1 Dysthymic disorder | CPT/HCPCS: 99212 ==

== ENCOUNTER 2024-03-29 10:10 | Outpatient (AMB) | payer MEDICARE, MEDICAID, SELFPAY ==
--- OUTSIDE RECORDS SUMMARY | 2024-03-29 10:11 | XMS_ITS | Patient Health Record ---
Author Organization [facility] Address [address] [address] Care Team Providers Care Staff Writer Name Role Phone Eva Monreal Primary Care Provider Unavailabl e MANUEL MELÉNDEZ Unavailable [phone] ALLERGIES Allergen (clinical drug ingredient) Drug/Non Drug [...] extremity veno us stasis (I87.8) Referral Organization [facility] Referring Provider First [...] needed Orally Once a day Active Nystatin-Triamcinolone 694850-9.1 UNIT/GM 1 application Externally Twice a day Active Fluorouracil 5 % 1 application Associate Producer ally Twice a day Active oxyCODONE HCl 5 MG 2 tablets as needed Orally every 4 hrs Active Probiotic Active Multivitamin - 1 tablet Orally Once a day Active Tacrolimus 0.1 % 1 application Associate Producer ally Once a day Active Mupirocin 2 % 1 application Associate Producer ally Twice a day Active Tretinoin 0.025 [...] Orally Active Mupirocin 2 % 1 application Associate Producer ally Twice a day Active Niacinamide 500 MG 1 tablet Orally Once a day Active Nystatin 015396 UNIT/ML 4 mL Mouth/Throa t Four times a day Active Furosemide 20 MG 1 tablet Orally Once a day Active Ciclopirox 8 % 1 application Associate Producer ally to toenail Once a day for [...] bone of left foot (Q74.2) Active confirmed [id number] VITAL SIGNS Heart Rate 63 /min 02/01/2024 Temperature 97.5 degrees Fahrenheit 02/01/2024 Respiratory Rate 16 /min 02/01/2024 Height 5ft 7in in 02/01/2024 Weight 120.9 lbs 02/01/2024 BMI 18.93 kg/m2 02/01/2024 Encounters Encounter Location Date Provider Diagnosis [facility] [address] 02/01/2024 MANUEL TRUJILLOALLEY [facility] [address] 02/01/2024 MANUEL MEDHAT 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 She has been seeing a Vest Presser. 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 I have placed a referral with [facility] to see if there is a venous [...] of [place] [address] KAMILA IBRAHIM [phone] [id number] John Lin Self - patient is the [...]
--- OUTSIDE RECORDS SUMMARY | 2024-03-29 10:11 | XMS_ITS ---
Author Organization [facility] Address [address] [address] Care Team Providers Care Hydraulic Billet Maker Name Role Phone Eva Monreal Primary Care Provider MANUEL Agarwal Unavailable [phone] REASON FOR VISIT [facility] referral Encounters Encounter Location Date Provider Diagnosis [facility] [address] [address] 02/02/2024 MANUEL MELÉNDEZ PLAN OF TREATMENT No Information Progress Notes * John LIN ADOB: (68 yo F)Acc No.[id number]:02/02/2024 Patient:??John LIN :1955?Age:68 Y?Sex:Fe male Phone: Address:[address] [place] [id number] * true * Date:??
--- OUTSIDE RECORDS SUMMARY | 2024-03-29 10:11 | XMS_ITS ---
Author Organization [facility] Address [address] [address] Care Team Providers Care Office Automation Technician Name Role Phone Shahnaz Monrealanne Primary Care Provider UnavailCORDELIA Crawford Unavailable [phone] ALLERGIES Allergen (clinical drug ingredient) Drug/Non Drug Allergy documented on EMR Reaction Allergy Type Onset Date Status amlodipine Amlodipine Unknown Drug Allergy Activ e amoxicillin Amoxicillin Unknown Drug Allergy Act le lisinopril Lisinopril Unknown Drug Allergy Activ e REASON FOR VISIT Lt foot cyst at the arch MEDICATIONS Medication SIG (Take, Route, Frequency, Duration) Notes Start Date End Date Status Gabapentin 300 MG 1 capsule Orally Once a day Active LORazepam 1 MG 1 tablet at bedtime as needed Orally Once a day Active Calcium 600+D3 Activ e Folic Acid 1 MG as directed Orally Active Furosemide 20 MG 1 tablet Orally Once a day Active Multivitamin - 1 tablet Orally Once a day Active Mupirocin 2 % 1 application Electrician ally Twice a day Active Losartan Potassium 25 MG 1 tablet Orally Once a day Active Mirtazapine 7.5 MG 1 tablet Orally Once a day Active oxyCODONE HCl 5 MG 1 tablet as needed O rally every 6 hrs Active Trintellix 20 MG 1 tablet Orally Once a day Active valACYclovir HCl 1 GM 1 tablet Orally Once a day Active Probiotic Active Encounters Encounter Location Date Provider Diagnosis [facility] [address] [address] 02/01/2024 CORDELIA MELÉNDEZ PLAN OF TREATMENT No Information Progress Notes * John LIN ADOB: [birth year] (68 yo F)Acc No.[id number]:02/01/2024 Consult note Patient:??John LIN Provider:??Cordelia Mcclendon DPM :1955?Age:68 Y?Sex:Fe male Date:02/01/2024 Phone: Address:[address] [place] [address] [id number] Pcp:Eva Monreal Subjective: * Chief Complaints: * ?1. Lt foot cyst at the arch. 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 * Surgical History:??bone gary ow transplant , , dilation and curettage , partial nephrectomy-right renal mass 2013, stapedectomy . * Hospitalization/Major Diagno stic Procedure:?? . * Social History:?Tobacco: never Alcohol: yes, occasional. * Medications:??Taking valACYc lovir HCl 1 GM Tablet 1 tablet Orally Once a day , Taking Trintellix 20 MG Tablet 1 tablet Orally Once a day , Taking Probiotic , Taking oxyCODONE HCl 5 MG Tablet 1 tablet as needed Orally every 6 hrs , Taking Mupirocin 2 % Ointment 1 application Externally Twice a day , Taking Multivitamin - Tablet 1 tablet Orally Once a day , Taking Mirtazapine 7.5 MG Tablet 1 tablet Orally Once a day , Taking Losartan Potassium 25 MG Tablet 1 tablet Orally Once a day , Taking LORazepam 1 MG Tablet 1 tablet at bedtime as needed Orally Once a day , Taking Gabapentin 300 MG Capsule 1 capsule Orally Once a day , Taking Furosemide 20 MG Tablet 1 tablet Orally Once a day , Taking Folic Acid 1 MG Tablet as directed Orally , Taking Calcium 600+D3 * Allergies:??Amlodipine, Amox icillin, Lisinopril. Objective: Therapeutic Interventions: Assessment: Plan: * Treatment: * Billing Information: * Visit Code:?? * Procedure Codes:?? * Sign off status: Pending * Provider:??Cordelia Mcclendon DPM Date:??
--- OUTSIDE RECORDS SUMMARY | 2024-03-29 10:11 | XMS_ITS ---
Author Organization [facility] Address [address] [address] Care Team Providers Care Frame And Scrap Crusher Name Role Phone Eva Monreal Primary Care Provider Unavailabl e CORDELIA MELÉNDEZ Unavailable [phone] ALLERGIES Allergen (clinical drug ingredient) Drug/Non Drug Allergy documented on EMR Reaction Allergy Type Onset Date Status amlodipine Amlodipine ankle swell Drug Allergy Act le amoxicillin Amoxicillin rash Drug Allergy Act le lisinopril Lisinopril cough Drug Allergy Activ e REASON FOR REFERRAL Reason Left lower extremity venous stasis dermatitis changes with edema. ? venous reflux Diagnosis 1 Edema of left lower extremity due to peripheral venous insufficiency (I87.2) Diagnosis 2 Lower extremity veno us stasis (I87.8) Referral Organization [facility] Referring Provider First Name CORDELIA Referring Provider Last Name MEDHAT Referring Provider Speciality Podiatry Referred Provider Specialty Intervention al Radiology Referral Priority Routine REASON FOR VISIT bump in left arch, left great toenail issue, rash on leg. MEDICATIONS Medication SIG (Take, Route, Frequency, Duration) Notes Start Date End Date Status Ciclopirox 8 % 1 application Internal Communications Specialist ally to toenail Once a day for 30 days 02/01/2024 Active Calcipotriene 0.005 % 1 application Exte rnally Twice a day Active Cevimeline HCl 30 MG [...] as needed Orally Once a day Active PreviDent 1.1 % as directed Dental Active Fluorouracil 5 % 1 application Internal Communications Specialist ally Twice a day Active Folic Acid 1 MG 1 tablet Orally Once a day Active Gabapentin 300 MG 1 capsule Orally Onc e a day Active hydrOXYzine HCl 25 MG 1 tablet as needed Orally Once a day Active Ketoconazole 2 % as directed Externally Active Lidocaine HCl 2 % 1 application as nee ded Externally Three times a day Active LORazepam 1 MG 1 tablet at bedtime as needed Orally Once a day Active Mirtazapine 7.5 MG 2 tablets at bedtime Orally Once a day Active Mupirocin 2 % 1 application Internal Communications Specialist ally Twice a day Active Nystatin-Triamcinolone 844043-1.1 UNIT/GM 1 application Externally Twice a day Active oxyCODONE HCl 5 MG 2 tablets as needed Orally every 4 hrs Active Probiotic Active Niacinamide 500 MG 1 tablet Orally Once a day Active Nystatin 427751 UNIT/ML 4 mL Mouth/Throa t Four times a day Active Tacrolimus 0.1 % 1 application Internal Communications Specialist ally Once a day Active Tretinoin 0.025 % 1 application in the evening to face Externally Once a day Active Valtrex 500 MG 1 tablet Orally Once a day Active PROBLEMS Problem Type ICD Code Onset Dates Problem Status W/U Status Risk SNOMED Code Notes Problem 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 [id number] VITAL SIGNS Weight 120.9 lbs 02/01/2024 Height 5ft 7in in 02/01/2024 BMI 18.93 kg/m2 02/01/2024 Heart Rate 63 /min 02/01/2024 Temperature 97.5 degrees Fahrenheit 02/01/20 24 Respiratory Rate 16 /min 02/01/2024 Encounters Encounter Location Date Provider Diagnosis [facility] [address] [facility] [address] [place] [address] 02/01/2024 CORDELIA MELÉNDEZ Accessory navicular bone of left foot Q74.2 ; Bony prominence palpable in left ankle M89.8X7 ; Onychomycosis B35.1 ; Lower extremity venous stasis I87.8 and Edema of left lower extremity due to peripheral venous insufficiency I87.2 ASSESSMENTS Encounter Date Diagnosis Assessment Notes Treatment [...] venous insufficiency. She has been seeing a Senior Human Resources Representative. 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 I have placed a referral with [facility] to see if there is a venous component. She will continue her follow ups with dermatology as well. 02/01/2024 Edema of left lower extremity due to peripheral venous insufficiency (ICD-10 - I87.2) PLAN OF TREATMENT Medication Medication Name Sig Start Date Stop Date Notes Ciclopirox 8 % 1 application Internal Communications Specialist ally to toenail Once a day for 30 days 02/01/2024 Treatment Notes Assessment Notes Accessory navicular bone of left foot This is an outpatient visit for evaluation [...] treatment is neccessary unless it become symptomatic. Onychomycosis Patient has a severl y dystrophic left hallux toenail. This is likely [...] the layers of medication once a week. Lower extremity venous stasis Patient wi th erythematous rash to the lower left leg with pitting edema. I am suspicious that this could be venous stasis dermatitis due to underlying venous insufficiency. She has been seeing a Senior Human Resources Representative. 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 I have placed a referral with [facility] to see if there is a venous component. She will continue her follow ups with dermatology as well. Pending Test Test Name Order Date X ray : Foot, left 3v 02/01/2024 Referrals Referral Date Details Left lower extremity venous stasis dermatitis changes with edema. ? venous reflux Progress Notes * John LIN ADOB: [birth year] (68 yo F)Acc No.[id number]:02/01/2024 Consult note Patient:??John LIN Provider:??Cordelia Mcclendon DPM :1955?Age:68 Y?Sex:Fe male Date:02/01/2024 Phone: Address:[address] [place] [address] [id number] Pcp:Eva Monreal Subjective: * Chief Complaints: * ?Bump in left arch, lef t great toenail issue, rash on leg. * HPI: ?Foot & Ankle:? Ms. Lin is a 68 year old female who presents for a consultation. She has a few different pedal complains today. She has a bump to the side of the left arch. She states this has been present for many years. She mentioned it to her PCP and they told her it was a cyst. She has no pain associated with it. It has not increased or decreased in size or shape. She states that her left great toenail is thickened and discolored. It has been this way for many years. She admits that the toenail was removed in the past for a biopsy. She states it grew back thick and has been this way ever since. She has not tried anything for it. She denies any pain associated with it. She also has a rash to the lower left leg. This has been ongoing for a few months. She has been seeing a supervisor paper testing in [place] who has been giving her topical treatments. She has not found any of these helpful. She has noticed swelling in the left leg. She thought the swelling at first was from lyrica. This was stopped and she did have some improvements. She still does notice swelling throughout the day. She has tried compression socks, but this does not seem to help. She denies itching associated with the rash. She has not noticed any drainage from the left leg. She did have a venous duplex performed to rule out DVT, but has not had any venous reflux studies. 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 She continues to follow closely with Gabrielle Bauman in [place]. * ROS:?General/Constitutional:?Denies??Chills.??Denies??Fatigue.??Denies??Fever.??Denies??Headache. ?Allergy/Immunology:?Denies??Hives.??Denies??Itching.??Denies??Rash.?Endocrine:?Denies??Excessive sweating.??Denies??Excessive thirst.??Denies??Frequent urination.?Respiratory:?Denies??Cough.??Denies??Shortness of breath,??denies.??Denies??Wheezing.?Cardiovascular:?Denies??Chest pain.??Denies??Claudication.??Denies??Cyanosis.?Gastrointestinal:?Denies??Abdominal pain.??Denies??Constipation.??Denies??Diarrhea.?Hematology:?Denies??Bleeding problems,??denies.??Denies??Easy bruising,??denies.??Denies??Swollen glands.?Musculoskeletal:?Patient complaining of??bump arch of left foot.?.??Denies??Joint stiffness.??Denies??Leg cramps.?Peripheral Vascular:?Denies??Blanching of skin.??Blood clots in legs??Denies.??Denies??Cold extremities.?Skin:?Denies??Masses.??Admits??Nail changes.??Admits??Rash.??Denies??Skin lesion(s).?Neurologic:?Denies??Paralysis.??Denies??Tingling/Numbness.??Denies??Tremor.?Psychiatric:?Denies??Auditory/visual hallucinations.??Denies??Delusions.??Denies??Suicidal thoughts.? * Medical History:?? * Surgical History:??bone gary ow transplant X 4 X 3 dilation and curettage partial nephrectomy-right renal mass 2013stapedectomy video assisted thoracic surgery on lung 2002 * Hospitalization/Major Diagno stic Procedure:?? (boy) 1984c-section (boy) 1988c-section (girl) 1991chemo therapy bone marrow transplant X 4 partial nephrectomy * Family History:??Mother: hyp ertension.??2 son(s) , 1 daughter(s) - healthy. .?? * Social History:?Tobacco: never Alcohol: yes, rarely. * Medications:??TakingValtrex 500 MG Tablet 1 tablet Orally Once a day Tretinoin 0.025 % Cream 1 application in the evening to face Externally Once a day Tacrolimus 0.1 % Ointment 1 application Externally Once a day Probiotic oxyCODONE HCl 5 MG Tablet 2 tablets as needed Orally every 4 hrs Nystatin-Triamcinolone 448039-8.1 UNIT/GM Cream 1 application Externally Twice a day Nystatin 469066 UNIT/ML Suspension 4 mL Mouth/Throat Four times a day Niacinamide 500 MG Tablet 1 tablet Orally Once a day Mupirocin 2 % Ointment 1 application Externally Twice a day Mirtazapine 7.5 MG Tablet 2 tablets at bedtime Orally Once a day LORazepam 1 MG Tablet 1 tablet at bedtime as needed Orally Once a day Lidocaine HCl 2 % Solution 1 application as needed Externally Three times a day Ketoconazole 2 % Shampoo as directed Externally hydrOXYzine HCl 25 MG Tablet 1 tablet as needed Orally Once a day Gabapentin 300 MG Capsule 1 capsule Orally Once a day Folic Acid 1 MG Tablet 1 tablet Orally Once a day Fluorouracil 5 % Cream 1 application Externally Twice a day PreviDent 1.1 % Gel as directed Dental Famotidine 20 MG Tablet 1 tablet at bedtime as needed Orally Once a day Estrace 0.1 MG/GM Cream as directed Vaginal Dupixent 300 MG/2ML Solution Pen-injector as directed Subcutaneous dexAMETHasone 0.5 MG/5ML Solution 10 mL Orally every 6 hrs cycloSPORINE 0.05 % Emulsion 1 drop into affected eye Ophthalmic Twice a day Clobetasol Propionate 0.05 % Ointment 1 application Externally Twice a day Clobetasol Propionate 0.05 % Gel 1 application Externally Twice a day Cevimeline HCl 30 MG Capsule 1 capsule Orally Three times a day Calcipotriene 0.005 % Cream 1 application Externally Twice a day Medication List reviewed and reconciled with the patientTaking Valtrex 500 MG Tablet 1 tablet Orally Once a day Taking Tretinoin 0.025 % Cream 1 application in the evening to face Externally Once a day Taking Tacrolimus 0.1 % Ointment 1 application Externally Once a day Taking Probiotic Taking oxyCODONE HCl 5 MG Tablet 2 tablets as needed Orally every 4 hrs Taking Nystatin- Triamcinolone 732979-3.1 UNIT/GM Cream 1 application Externally Twice a day Taking Nystatin 833447 UNIT/ML Suspension 4 mL Mouth/Throat Four times a day Taking Niacinamide 500 MG Tablet 1 tablet Orally Once a day Taking Mupirocin 2 % Ointment 1 application Externally Twice a day Taking Mirtazapine 7.5 MG Tablet 2 tablets at bedtime Orally Once a day Taking LORazepam 1 MG Tablet 1 tablet at bedtime as needed Orally Once a day Taking Lidocaine HCl 2 % Solution 1 application as needed Externally Three times a day Taking Ketoconazole 2 % Shampoo as directed Externally Taking hydrOXYzine HCl 25 MG Tablet 1 tablet as needed Orally Once a day Taking Gabapentin 300 MG Capsule 1 capsule Orally Once a day Taking Folic Acid 1 MG Tablet 1 tablet Orally Once a day Taking Fluorouracil 5 % Cream 1 application Externally Twice a day Taking PreviDent 1.1 % Gel as directed Dental Taking Famotidine 20 MG Tablet 1 tablet at bedtime as needed Orally Once a day Taking Estrace 0.1 MG/GM Cream as directed Vaginal Taking Dupixent 300 MG/2ML Solution Pen-injector as directed Subcutaneous Taking dexAMETHasone 0.5 MG/5ML Solution 10 mL Orally every 6 hrs Taking cycloSPORINE 0.05 % Emulsion 1 drop into affected eye Ophthalmic Twice a day Taking Clobetasol Propionate 0.05 % Ointment 1 application Externally Twice a day Taking Clobetasol Propionate 0.05 % Gel 1 application Externally Twice a day Taking Cevimeline HCl 30 MG Capsule 1 capsule Orally Three times a day Taking Calcipotriene 0.005 % Cream 1 application Externally Twice a day Medication List reviewed and reconciled with the patient * Allergies:??Amlodipine: ankl e swellAmoxicillin: rashLisinopril: coughno[Allergies Verified] Objective: * Vitals:??Wt:120.9lbs, Ht: 5f t 7in, BMI:18.93Index, HR:63/min, Temp:97.5F, RR:16/min, Ht-cm: 170.18, Wt-k.84 kg. * Examination: ?General Examination: ?This is an elderly female. Alert and oriented today and in no acute distress. Patient comes in ambulating in sneakers without using any assistive devices. Breathing is regular and unlabored while sitting. Affect is pleasant and cooperative. No unusual anxiety or depression noted. Hearing intact to spoken word. No evidence of visual impairment that would impact self care or ambulation. Patient has palpable dorsalis pedis and posterior tibial pulse bilaterally. There is a large tortourous varicosity present to the anterior left leg just inferior to the knee. There is +1 pitting edema to the left lower leg from the calf region to the ankle. There is erythematous plaques to the medial and lateral left lower leg with excoriations. No weeping or open wounds. There are smaller erythematous plaques present to the dorsum of the left foot with scaling. There is dermal atrophy to both lower extremities with hemosiderin discoloration. The left hallux toenail is +5mm thickened with distal onycholysis. There is complete yellowing of the nail plate and subungual debris present. No erythema to the nail folds. No pain with pressure. There is a palpable protrusion at the left navicular tuberosity. This is not painful and nonmobile. Subtalar and ankle joint range of motion are unrestricted. 5/5 strength for anterior, posterior, and lateral lower extremity muscle groups on the left and right. 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 Plan: * Treatment: 2.??Bony prominence palpable in left ankle?Imaging: X ray : Foot, left 3v 3.??Onychomycosis?? Start Ciclopirox Solution, 8 %, 1 application, Externally to toenail, Once a day, 30 days, 6.6 Milliliter, Refills 4.? Notes: Patient has a severly dystrophic left hallux [...] the layers of medication once a week. ? 4.??Lower extremity venous s tasis?? Notes: Patient with erythematous rash to the lower left leg with pitting edema. I am suspicious that this could be venous stasis dermatitis due to underlying venous insufficiency. She has been seeing a Senior Human Resources Representative. 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 I have placed a referral with [facility] to see if there is a venous component. She will continue her follow ups with dermatology as well. ? Referral To:Interventional Radiology ?Reason:Left lower extremity venous stasis dermatitis changes with edema. ? venous reflux 5.??Edema of left lower extr emity due to peripheral venous insufficiency? Referral To:Interventional Radiology ?Reason:Left lower extremity venous stasis dermatitis changes with edema. ? venous reflux * Procedures:?LEFT FOOT RADIOGRAPHS 02/01/2024 3 weight bearing views (AP, LAT, LO PROJECTION/MO VIEW) Taken in the office and read by the physician. Diffuse osseous deminieralization present. There are no acute fractures or dislocations. No abnormal bone lesions or tumors. Mild narrowing of the tarsometatarsal joints noted. The navicular tuberosity is large and there is a small accessory navicular present. Sclerosis present to the subtalar joint. No abnormal soft tissue calcifications or radio opaque foreign bodies. ? * Procedure Codes:??30193 X-RA Y EXAM OF FOOT 3 Views, Modifiers: LT * Billing Information: * Visit Code:?? 85704 Office Visit, New Pt., Level 3. * Procedure Codes:?? 35762 X-RAY EXAM OF FOOT 3 Views. Modifiers: LT * Sign off status: Completed true * Provider:??Cordelia Mcclendon DPM Date:?? Consultation Request Notes Referral Date Referring Provider Referred Provider Not es 02/01/2024 CORDELIA MELÉNDEZ , Left lower ex tremity venous stasis dermatitis changes with edema. ? venous reflux
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
== END 2024-03-29 10:58 | disposition home or self-care (01) ==
LOC: HO.HOP 10:10
PROVIDERS: PCP Internal Medicine; Visit Provider Clinical Nurse Specialist Psychiatric/Mental Health
DX: F34.1 Dysthymic disorder (principal); F42.2 Mixed obsessional thoughts and acts; F33.1 Major depressive disorder, recurrent, moderate
CPT/HCPCS: 99215

== ENCOUNTER → 2024-03-29 10:10 | Outpatient (BNVA) | payer MEDICARE, MEDICAID, SELFPAY | PROVIDERS: PCP Internal Medicine; Visit Provider Clinical Nurse Specialist Psychiatric/Mental Health | DX: F34.1 Dysthymic disorder (principal); F42.9 Obsessive-compulsive disorder, unspecified; F33.1 Major depressive disorder, recurrent, moderate | CPT/HCPCS: 99212 ==

== ENCOUNTER 2024-05-10 17:04 | Outpatient (AMB) | payer MEDICARE, MEDICAID, SELFPAY ==
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
== END 2024-05-10 17:05 | disposition home or self-care (01) ==
LOC: HO.HOP 17:04
PROVIDERS: PCP Internal Medicine; Visit Provider Clinical Nurse Specialist Psychiatric/Mental Health
DX: F33.1 Major depressive disorder, recurrent, moderate (principal); F42.2 Mixed obsessional thoughts and acts; F34.1 Dysthymic disorder
CPT/HCPCS: 99214

== ENCOUNTER → 2024-05-10 17:04 | Outpatient (BNVA) | payer MEDICARE, MEDICAID, SELFPAY | PROVIDERS: PCP Internal Medicine; Visit Provider Clinical Nurse Specialist Psychiatric/Mental Health ==

== ENCOUNTER 2024-05-22 11:35 | Outpatient (AMB) | payer MEDICARE, MEDICAID, SELFPAY ==
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
== END 2024-05-22 12:21 | disposition home or self-care (01) ==
LOC: HO.HOP 11:35
PROVIDERS: PCP Internal Medicine; Visit Provider Clinical Nurse Specialist Psychiatric/Mental Health
DX: F42.2 Mixed obsessional thoughts and acts (principal)
CPT/HCPCS: 99214

== ENCOUNTER → 2024-05-22 11:35 | Outpatient (BNVA) | payer MEDICARE, MEDICAID, SELFPAY | PROVIDERS: PCP Internal Medicine; Visit Provider Clinical Nurse Specialist Psychiatric/Mental Health | DX: F42.2 Mixed obsessional thoughts and acts (principal); F42.9 Obsessive-compulsive disorder, unspecified; F32.A Depression, unspecified; Z71.89 Other specified counseling | CPT/HCPCS: 99212 ==

== ENCOUNTER 2024-06-19 11:36 | Outpatient (AMB) | payer MEDICARE, MEDICAID, SELFPAY ==
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
== END 2024-06-19 12:17 | disposition home or self-care (01) ==
LOC: HO.HOP 11:36
PROVIDERS: PCP Internal Medicine; Visit Provider Clinical Nurse Specialist Psychiatric/Mental Health
DX: F42.2 Mixed obsessional thoughts and acts (principal); F34.1 Dysthymic disorder
CPT/HCPCS: 99214

== ENCOUNTER → 2024-06-19 11:36 | Outpatient (BNVA) | payer MEDICARE, MEDICAID, SELFPAY | PROVIDERS: PCP Internal Medicine; Visit Provider Clinical Nurse Specialist Psychiatric/Mental Health | DX: F34.1 Dysthymic disorder (principal); F42.9 Obsessive-compulsive disorder, unspecified | CPT/HCPCS: 99212 ==

== ENCOUNTER 2024-08-10 17:38 | Outpatient (AMB) | payer MEDICARE, MEDICAID, SELFPAY ==
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
== END 2024-08-10 17:39 | disposition home or self-care (01) ==
LOC: HO.HOP 17:38
PROVIDERS: PCP Internal Medicine; Visit Provider Clinical Nurse Specialist Psychiatric/Mental Health
DX: F33.1 Major depressive disorder, recurrent, moderate (principal); F34.1 Dysthymic disorder; F42.2 Mixed obsessional thoughts and acts
CPT/HCPCS: 99215

== ENCOUNTER → 2024-08-10 17:38 | Outpatient (BNVA) | payer MEDICARE, MEDICAID, SELFPAY | PROVIDERS: PCP Internal Medicine; Visit Provider Clinical Nurse Specialist Psychiatric/Mental Health | DX: F33.1 Major depressive disorder, recurrent, moderate (principal); F34.1 Dysthymic disorder; F42.2 Mixed obsessional thoughts and acts; Z71.89 Other specified counseling | CPT/HCPCS: 99212 ==

== ENCOUNTER 2024-09-22 14:46 | Inpatient (IN) | payer MEDICARE, MEDICAID, SELFPAY ==
--- NOTE | ~2024-09-22 | CT_ITS ---
CLINICAL HISTORY: fall with active hematoma R ribs flank Exam: CT chest with intravenous contrast. Comparison: None. Findings: Linear areas of increased density are seen within the right upper lung suggesting scarring. No focal area of consolidation. No pleural effusion or pneumothorax. No findings of acute aortic injury. No mediastinal hematoma. [id number] coronary artery calcifications. Large hiatal hernia. This is a mixed sliding and paraesophageal hiatal hernia. No findings to suggest obstruction. No right rib fracture seen within the field of view. No thoracic spine compression fractures. Mild induration within the subcutaneous fat of the lateral aspect of the right lower chest with subtle edema along the right oblique musculature. Impression: Soft tissue contusion over the lateral aspect of the right lower chest without rib fracture, pneumothorax, or pleural effusion. Please refer to the patient's separately dictated CT of the abdomen and pelvis for further information. This document has been electronically signed by: Dre Sheehan MD on 09/22/2024 18:45:27
--- NOTE | ~2024-09-22 | CT_ITS ---
CLINICAL HISTORY: head trauma CT head without contrast Comparison: CT/SR - CT HEAD/BRAIN WO IV CON - 05/23/23 15:59 EDT Findings: Age-appropriate atrophy is again identified. The size and shape of the ventricular system is within normal limits for degree of atrophy. Unchanged mild areas of low-attenuation are seen within the periventricular and deep white matter. Chavarria-white differentiation is well preserved. No midline shift or mass effect. No intracranial hemorrhage. No calvarial fractures. Minor mucosal thickening within the bilateral ethmoid air cells. IMPRESSION: 1. No acute intracranial findings. This document has been electronically signed by: Dre Sheehan MD on 09/22/2024 17:35:20
--- NOTE | ~2024-09-22 | CT_ITS ---
CLINICAL HISTORY: neck trauma CT cervical spine without contrast Comparison: CT/NM/SR - CT CERVICAL SPINE WO IV CON - 05/23/23 15:59 EDT Findings: No acute fractures are identified. Unchanged 2 mm of anterolisthesis of C2 on C3, 3 mm of anterolisthesis of C4 on C5, and 2 mm of retrolisthesis of C5 on C6. Multilevel degenerative disc disease and degenerative facet disease throughout the cervical spine is unchanged. This is most pronounced at C3-4 and C5-6. No prevertebral soft tissue swelling. Upper airway is patent. Right apical pleural/parenchymal scarring is unchanged. No pneumothorax. Dense vascular calcification of the carotid arteries bilaterally. IMPRESSION: Unchanged CT of the cervical spine. No acute fracture. This document has been electronically signed by: Dre Sheehan MD on 09/22/2024 17:38:41
--- NOTE | ~2024-09-22 | CT_ITS ---
CLINICAL HISTORY: R flank hematoma on eliquis post fall Exam: CT abdomen and pelvis with intravenous contrast. Comparison: CT of the chest performed same day. Findings: Please refer to the patient's separately dictated CT of the chest for information regarding findings within the thorax. CT abdomen: Induration within the subcutaneous fat and oblique musculature of the right lower chest extends into the abdomen. There is more extensive areas of induration involving the subcutaneous fat within the right abdomen extending to the right pelvis. Ovoid hyperdense focus within the subcutaneous fat over the right lateral aspect of the abdomen and pelvis identified measuring 11.5 x 3.6 x 6.3 cm in size. There are foci of hyperdensity within this indicative of active contrast extravasation and active hemorrhage. This is seen in multiple locations along the lateral aspect of the right subcutaneous fat. No associated right rib fracture seen. No compression fracture seen throughout the visualized portions of the thoracic spine or lumbar spine. No fractures of the bony pelvis. No acute solid organ injury is identified. Mild dilation of both the intrahepatic and extrahepatic biliary tree without discrete intraluminal filling defects. Spleen is diminutive and hyperdense within the far superior aspect of the left upper quadrant. Mixed sliding and paraesophageal hiatal hernia is large in size without obstructive phenomenon. No dilated small bowel. No free air. CT pelvis: Prominent stool throughout the colon. Fluid-filled loops of nondilated small bowel. No free fluid or free air. Dense vascular calcification of the abdominal aorta and iliac arteries. Impression: Hematoma along the subcutaneous fat of the right abdomen as well as the oblique musculature. There is active contrast extravasation indicative of active hemorrhage within the hematoma within the subcutaneous fat of the lateral right abdomen as discussed above. This document has been electronically signed by: Dre Sheehan MD on 09/22/2024 18:51:10
[2024-09-22 15:04] VITALS: BP 140/82; PULSE 88; O2SAT 98
--- NOTE | 2024-09-22 15:07 | ECG_ITS ---
Test Reason : FALL Blood Pressure : */* mmHG Vent. Rate : 79 BPM Atrial Rate : 79 BPM P-R Int : 132 ms QRS Dur : 86 ms QT Int : 392 ms P-R-T Axes : 68 -5 56 degrees QTcB Int : 449 ms Normal sinus rhythm Minimal voltage criteria for LVH, may be normal variant ( [place] product ) Septal infarct , age undetermined Abnormal ECG When compared with ECG of 23-May-2023 16:19, Septal infarct is now Present Referred By: Lisa August Electronically Signed By: Jose D Dash
[2024-09-22 15:09] VITALS: BP 164/56; PULSE 79; RESP 18; TEMP 36.7; O2SAT 98; BMI 21.4
[2024-09-22 15:24] LABS: MANUAL DIFF FLAG NO
[2024-09-22] MEDS: fentaNYL citrate/PF 100 MCG/2 ML VIAL 50 MCG IVPUSH ×3 (15:26→18:10)
[2024-09-22 15:29] LABS: Basophils Percent Auto 0.2 % (0-2); Eosinophils Absolute Auto 0.1 X10*3/uL (0.0-0.4); Eosinophils Percent Auto 1.1 % (0-4); Hematocrit 24.8 % (37.0-47.0); Hemoglobin 8.8 g/dl (12.0-16.0); Imm Gran Abs Auto 0.03 X10*3/uL (0.00-0.03); Imm Gran Pct Auto 0.4 % (0.0-0.4); Lymphocytes Absolute Auto 1.2 X10*3/uL (1.2-4.9); Lymphocytes Percent Auto 14.5 % (20-40); Mean Corpuscular HGB Conc 35.5 g/dl (31.0-35.0); Mean Corpuscular Hemoglobin 35.1 pg (27.0-33.0); Mean Corpuscular Volume 98.8 fL (80.0-98.0); Mean Platelet Volume 9.8 fL (9.4-12.3); Monocytes Percent Auto 12.2 % (2-11); NRBC Pct Auto 0.4 /100WBC (0.0-0.2); Neutrophils Absolute Auto 5.9 x10*3/uL (2.0-8.3); Neutrophils Percent Auto 71.6 % (45-73); Platelet Count 239 X10*3/uL (160-400); Red Blood Count 2.51 X10*6/uL (4.20-5.50); Red Cell Distribution Width 15.8 % (11.0-16.0); White Blood Count 8.3 X10*3/uL (4.8-10.8)
[2024-09-22 15:31] LABS: INTERNATIONAL NORM RATIO 1.1 (0.9-1.1); Prothrombin Time 12.9 SEC (10.9-12.4)
--- NOTE | 2024-09-22 15:48 | ED_ITS ---
HPI - Fall General Chief Complaint: Fall Stated Complaint: R SIDED FLANK PAIN Time Seen by Provider: 09/22/24 14:59 Source: patient and old records reviewed Mode of arrival: ambulatory Limitations: no limitations History of Present Illness ED Provider: ESPERANZA MATA Narrative: 69 yo female with PMH of PAF on eliquis, AML s/p stem cell transplant in remission 15 years ago. She spilled water and picked it up with a towel then slipped and tripped on the towel at 7am no LOC doesn't think she hit her head. Was able to get up. She notes she has a R flank bruise that just keeps getting bigger from striking it on the nightstand table. She denies CP/SOB, dizziness. MD complaint: fall Onset (ago): hour(s) (7-8M) Fall from: standing Fall witnessed: no Place fall occurred: home Loss of consciousness: none Prolonged down time: no Context: tripped/slipped Location of injury: chest Severity: moderate Quality: aching Associated symptoms (after fall): denies Related Data Home Medications ?Medication ?Instructions ?Recorded ?Confirmed gabapentin 300 mg capsule mg PO 10/13/23 06/19/24 oxycodone 5 mg tablet mg PO 10/13/23 06/19/24 estradiol 0.01% (0.1 mg/gram) vaginal 10/28/23 06/19/24 vaginal cream famotidine 20 mg tablet 20 mg PO BID 10/28/23 06/19/24 folic acid 1 mg tablet 1 mg PO DAILY 10/28/23 06/19/24 losartan 25 mg tablet 25 mg PO DAILY 10/28/23 06/19/24 calcipotriene 0.005 % topical cream 1 appl topical QAM 12/14/23 06/19/24 cevimeline 30 mg capsule 1 cap PO TID 12/14/23 06/19/24 fluorouracil 5 % topical cream 1 appl topical BID 12/14/23 06/19/24 peg 3350-electrolytes 236 ml PO 12/14/23 06/19/24 gram-22.74 gram-6.74 gram-5.86 gram solution (GaviLyte-G) ciclopirox 8 % topical solution topical DAILY 02/20/24 06/19/24 fluoride (sodium) 1.1 % dental gel 0 appl dental 02/20/24 06/19/24 (DentaGel) nystatin 100,000 unit/mL oral PO 02/20/24 06/19/24 suspension valacyclovir 500 mg tablet 500 mg PO BID 02/20/24 06/19/24 chlorhexidine gluconate 0.12 % PO 03/29/24 06/19/24 mouthwash clobetasol 0.05 % scalp solution topical 03/29/24 06/19/24 dexamethasone 0.5 mg/5 mL oral mg PO 03/29/24 06/19/24 solution lidocaine HCl 2 % mucosal solution PO 03/29/24 06/19/24 (Lidocaine Viscous) furosemide 20 mg tablet 20 mg PO DAILY 05/22/24 06/19/24 hydroxyzine HCl 25 mg tablet 50 mg PO BID PRN itching 07/13/24 apixaban 2.5 mg tablet (Eliquis) 2.5 mg PO BID 08/10/24 08/10/24 diltiazem HCl 240 mg 240 mg PO DAILY 08/10/24 08/10/24 capsule,extended release 24 hr empagliflozin 10 mg tablet 10 mg PO DAILY 08/10/24 08/10/24 (Jardiance) levothyroxine 50 mcg tablet 50 mcg PO DAILY 08/10/24 08/10/24 Previous Rx's ?Medication ?Instructions ?Recorded hydrocortisone 1 % topical 1 appl topical BID PRN rash #453.6 08/29/22 ointment (Anti-Itch grams (hydrocortisone)) lorazepam 0.5 mg tablet 0.5 mg PO DAILY PRN anxiety #30 08/10/24 tabs escitalopram oxalate 20 mg tablet 20 mg PO DAILY #90 tabs 08/13/24 (Lexapro) Allergies Allergy/AdvReac Type Severity Reaction Status Date / Time vancomycin [VANCOMYCIN] Allergy Mild HIVES Verified 09/22/24 15:10 imipenem [IMIPENEM] Allergy Unknown HIVES Verified 09/22/24 15:10 Penicillins [PENICILLINS] Allergy Unknown UNKNOWN Verified 09/22/24 15:10 lisinopril [LISINOPRIL] AdvReac Unknown COUGH Verified 09/22/24 15:10 Review of Systems 2 Review of Systems: Constitutional : No Fever, No Chills, No Fatigue ENT/Mouth : No sore throat, No Rhinorrhea Eyes: No Eye Pain, No Swelling, No Redness Cardiovascular : No Chest Pain, No SOB, No Dyspnea on Exertion Respiratory : No Cough, No Sputum Gastrointestinal : No Nausea, No Vomiting, No Diarrhea, No abdominal Pain Genitourinary : No Dysuria, No Urinary Frequency, No Hematuria, Musculoskeletal : No joint pain, No Myalgias, No Joint Swelling, pos R flank pain Skin : No Skin Lesions, No rash Neuro : No Weakness, No Numbness, No Dizziness, no Headache Psych : No Anxiety/Panic, No Depression Heme/Lymph: No Bruising, No Bleeding,No Lymphadenopathy Endocrine : No Polyuria, No Polydipsia All other systems reviewed and are negative [facility] Past Medical History Attestation statement: The following information was validated with the patient. Source: old records reviewed Medical History (Updated 09/22/24 @ 16:00 by Lsia August DO) PAF (paroxysmal atrial fibrillation) Major depressive disorder, recurrent, moderate Dysthymia OCD (obsessive compulsive disorder) Post herpetic neuralgia Social History Social History Alcohol intake: current Alcohol intake frequency: holidays/special occasions only Smoked in Last 30 Days: No Use of substances other than those prescribed or required for medical reasons: Yes Substance Use Type: Marijuana Advance Directives: No Advance Directives Information Provided: Yes Do you have a plan to hurt others: No Plan Physical Exam 2 Vital Signs: Vital Signs: Last Vital Signs Temp 97.8 F 09/22/24 16:54 Pulse 78 09/22/24 16:59 Resp 16 09/22/24 16:59 BP 130/50 L 09/22/24 16:59 Pulse Ox 100 09/22/24 16:59 O2 Del Method Room Air 09/22/24 16:59 BMI result Body Mass Index 21.4 Appearance: Alert. Oriented X3. No acute distress. Eyes: Pupils equal, round and reactive to light. ENT: Pharynx normal. Neck: Normal inspection. Neck supple. CVS: Normal heart rate and rhythm. Pulses normal. Respiratory: No respiratory distress. Breath sounds normal. Abdomen: Soft and nontender. R flank just above iliac crest is a hard large firm hematoma about 10-12cm I wrapped it immediately. Skin: Skin warm and dry. Normal skin color. Normal skin turgor. Extremities: No lower extremity edema. No calf ttp Neuro: Oriented X 3. No motor deficit. No sensory deficit. CN2-12 intact Course Course Course Narrative: discussed risks and benefits of kcentra with patient she agrees to reverse signed out to Dr. Ruzi Medications Administered Generic Name Dose Route Start Last Admin Trade Name Freq PRN Reason Stop Dose Admin Lactated Ringer's 1,000 mls @ 999 mls/hr 09/22/24 18:06 09/22/24 18:15 Lr IV 09/22/24 19:06 999 mls/hr .Q1H1M ONE Administration Discontinued Medications Generic Name Dose Route Start Last Admin Trade Name Freq PRN Reason Stop Dose Admin Fentanyl 50 mcg 09/22/24 15:07 09/22/24 15:26 Fentanyl Citrate/Pf 100 Mcg/2 Ml Vial IVPUSH 09/22/24 15:08 50 mcg ONCE ONE Administration Protocol Fentanyl 50 mcg 09/22/24 16:38 09/22/24 17:01 Fentanyl Citrate/Pf 100 Mcg/2 Ml Vial IVPUSH 09/22/24 16:39 50 mcg ONCE ONE Administration Protocol Prothrombin Complex Concent ( 80 mls @ 480 mls/hr 09/22/24 16:38 09/22/24 17:28 Human) 2,000 unit/ IV IV 09/22/24 16:47 480 mls/hr Miscellaneous Supplies .Q10M ONE Administration Iohexol 85 ml 09/22/24 16:37 09/22/24 16:37 Iohexol 350 Mg/Ml 100 Ml Infus..Btl IV 09/22/24 16:38 85 ml ONCE ONE Administration Medical Decision Making Medical Decision Making MDM Narrative: 69 yo female with PMH of PAF on eliquis, AML s/p stem cell transplant in remission 15 years ago who fell today mechanical in nature now has large R flank hematoma and given eliquis use there is a concern for active extravasation. I have wrapped it already but patient denies pain from wrap, labs, type and screen, trauma CT scans, IV fentanyl for pain Differential Diagnosis Differential Diagnoses: The differential diagnosis associated with the presentation includes hematoma, contusion, trauma, anemia, active extravasation Admission/Observation Consideration of admission/observation: Escalation of care including admission/observation considered needs H/H monitoring Consult Healthcare Provider Management of the patient was discussed with: Concession Attendant (Dr. Gilmore asked about extravasation given area IR cannot manage just compress and reverse eliquis) Lab Data MDM Lab Attestation statement: I reviewed the patient's lab results. H/H down in 8s with concern for increasing hematoma she is currently in NSR and no hx of DVT/PE I am going to reverse her eliquis at this time 09/22/24 16:51 09/22/24 15:19 Labs: Lab Results 09/22/24 09/22/24 09/22/24 Range/Units 15:19 16:50 16:51 WBC 8.3 8.2 (4.8-10.8) X10*3/uL RBC 2.51 L 2.42 L (4.20-5.50) X10*6/uL Hgb 8.8 L 8.5 L (12.0-16.0) g/dl Hct 24.8 L 24.1 L (37.0-47.0) % MCV 98.8 H 99.6 H (80.0-98.0) fL MCH 35.1 H 35.1 H (27.0-33.0) pg MCHC 35.5 H 35.3 H (31.0-35.0) g/dl RDW 15.8 15.7 (11.0-16.0) % Plt Count 239 227 (160-400) X10*3/uL MPV 9.8 9.9 (9.4-12.3) fL Immature Gran % (Auto) 0.4 (0.0-0.4) % Neut % (Auto) 71.6 (45-73) % Lymph % (Auto) 14.5 L (20-40) % [place] % (Auto) 12.2 H (2-11) % Eos % (Auto) 1.1 (0-4) % Baso % (Auto) 0.2 (0-2) % Lymph # (Auto) 1.2 (1.2-4.9) X10*3/uL [place] # (Auto) 1.0 (0.1-1.2) X10*3/uL Eos # (Auto) 0.1 (0.0-0.4) X10*3/uL Baso # (Auto) 0.0 (0.0-0.2) X10*3/uL Abs Immat Gran (auto) 0.03 (0.00-0.03) X10*3/uL Absolute Neuts (auto) 5.9 (2.0-8.3) x10*3/uL Absolute Nucleated RBC 0.030 H 0.030 H (0.0-0.012) X10*3/uL Nucleated RBC % (auto) 0.4 H 0.4 H (0.0-0.2) /100WBC PT 12.9 H (10.9-12.4) SEC INR 1.1 (0.9-1.1) Sodium 136 (135-145) mmol/L Potassium 4.4 (3.3-5.1) mmol/L Chloride 104 (96-108) mmol/L Carbon Dioxide 27 (22-29) mmol/L Anion Gap 9 L (12-20) BUN 40 H (9-16) mg/dL Creatinine 1.23 (0.5-1.4) mg/dL Estim Creat Clear Calc 41.3 Estimated GFR 43 Random Glucose 104 (60-115) mg/dL Calcium 8.7 (8.4-10.2) mg/dL Magnesium 2.2 (1.6-2.6) mg/dL Total Bilirubin 0.3 (0.0-1.0) mg/dL Direct Bilirubin 0.1 (0.0-0.5) mg/dL AST 43 H (5-31) U/L ALT 51 H (0-31) U/L Alkaline Phosphatase 123 H (39-117) U/L Total Creatine Kinase 196 H (26-140) U/L Total Protein 6.4 L (6.5-8.0) g/dL Albumin 3.8 (3.5-5.0) g/dL Urine Color Yellow Urine Appearance Clear Urine pH 6.0 (5.0-9.0) Ur Specific [place] 1.010 (1.005-1.025) Urine Protein Negative (Neg-Trace) mg/dL Urine Glucose (UA) 250 H (Negative) mg/dL Urine Ketones Negative (Negative) mg/dL Urine Blood Negative (Negative) Urine Nitrite Negative (Negative) Ur Leukocyte Esterase Negative (Negative) Blood Type A Positive Antibody Screen NEGATIVE Independent Interpretation I performed an independent interpretation of an: EKG and CT Scan Interpretation: Rate: 79 Rhythm: NSR [place]: left Normal P waves. Normal MARIELA. Normal QRS complex. ST T wave : no LEA, LVH, artifact is noted qTC: 449 prior studies: no acute ischemia The study has been interpreted contemporaneously by me. . Radiology Impression Discussion of test interpretation with radiology: I have reviewed the radiologist's reading. Independent Historian Clinical information obtained from an independent historian. History obtained from or confirmed by: EMS External Record Review External record reviewed: Outpatient record Discharge Plan Discharge Clinical Impression: Hematoma of right flank Patient Disposition: Admitted As Inpatient Prescriptions: No Action hydroxyzine HCl 25 mg tablet 50 mg PO BID PRN (Reason: itching) hydrocortisone [Anti-Itch (HC)] 1 % ointment 1 appl topical BID PRN (Reason: rash) Qty: 453.6 0RF losartan 25 mg tablet 25 mg PO DAILY estradiol 0.01 % (0.1 mg/gram) cream vaginal folic acid 1 mg tablet 1 mg PO DAILY famotidine 20 mg tablet 20 mg PO BID fluorouracil 5 % cream 1 appl topical BID peg 3350-electrolytes [GaviLyte-G] 236-22.74-6.74 -5.86 gram recon soln PO calcipotriene 0.005 % cream 1 appl topical QAM cevimeline 30 mg capsule 1 cap PO TID valacyclovir 500 mg tablet 500 mg PO BID ciclopirox 8 % solution topical DAILY fluoride (sodium) [DentaGel] 1.1 % gel 0 appl dental nystatin 100,000 unit/mL suspension PO furosemide 20 mg tablet 20 mg PO DAILY oxycodone 5 mg tablet PO gabapentin 300 mg capsule PO dexamethasone 0.5 mg/5 mL solution PO chlorhexidine gluconate 0.12 % mouthwash PO clobetasol 0.05 % solution topical lidocaine HCl [Lidocaine Viscous] 2 % solution PO diltiazem HCl 240 mg capsule,extended release 24hr 240 mg PO DAILY levothyroxine 50 mcg tablet 50 mcg PO DAILY Jardiance 10 mg tablet 10 mg PO DAILY Eliquis 2.5 mg tablet 2.5 mg PO BID lorazepam 0.5 mg tablet 0.5 mg PO DAILY PRN (Reason: anxiety) Qty: 30 2RF escitalopram oxalate [Lexapro] 20 mg tablet 20 mg PO DAILY Qty: 90 1RF Print Language: Spanish
[2024-09-22 15:51] LABS: Alanine Aminotransferase 51 U/L (0-31); Albumin Level 3.8 g/dL (3.5-5.0); Alkaline Phosphatase 123 U/L (39-117); Anion Gap 9 (12-20); Aspartate Amino Transferase 43 U/L (5-31); Bilirubin Direct 0.1 mg/dL (0.0-0.5); Bilirubin Total 0.3 mg/dL (0.0-1.0); Blood Urea Nitrogen 40 mg/dL (9-16); Calcium 8.7 mg/dL (8.4-10.2); Carbon Dioxide 27 mmol/L (22-29); Chloride 104 mmol/L (96-108); Creatinine Clr Calc Pharmacy 41.3; Estimated Glomerular Filt Rate 43; Glucose Random 104 mg/dL (60-115); Magnesium 2.2 mg/dL (1.6-2.6); Potassium 4.4 mmol/L (3.3-5.1); Sodium 136 mmol/L (135-145); Total Protein 6.4 g/dL (6.5-8.0)
[2024-09-22] MEDS: iohexoL 350 MG/ML 100 ML INFUS..BTL 85 ML IV (16:37)
[2024-09-22 16:54] VITALS: BP 125/55; PULSE 73; RESP 16; TEMP 36.6; O2SAT 99
--- NOTE | 2024-09-22 16:56 | PC.NURSE ---
pharmacy mixing [facility] at this time
[2024-09-22 16:58] LABS: Hematocrit 24.1 % (37.0-47.0); Hemoglobin 8.5 g/dl (12.0-16.0); Mean Corpuscular HGB Conc 35.3 g/dl (31.0-35.0); Mean Corpuscular Hemoglobin 35.1 pg (27.0-33.0); Mean Corpuscular Volume 99.6 fL (80.0-98.0); Mean Platelet Volume 9.9 fL (9.4-12.3); NRBC Pct Auto 0.4 /100WBC (0.0-0.2); Platelet Count 227 X10*3/uL (160-400); Red Blood Count 2.42 X10*6/uL (4.20-5.50); Red Cell Distribution Width 15.7 % (11.0-16.0); White Blood Count 8.2 X10*3/uL (4.8-10.8)
[2024-09-22 16:59] VITALS: BP 130/50; PULSE 78; RESP 16; O2SAT 100
[2024-09-22 16:59] LABS: Appearance Urine Clear; Color Urine Yellow; Glucose Urine UA 250 mg/dL (Negative); Leukocyte Esterase Urine Negative (Negative); Nitrite Urine Negative (Negative); Urine Blood Negative (Negative); Urine Ketones Negative (Negative); Urine Protein Negative (Neg-Trace)
[2024-09-22] MEDS: Hum Prothrombin Cplx(PCC)4Fact 2,000 UNIT in Container,Empty 0 ML 480 UNIT IV (17:28)
[2024-09-22] MEDS: Lactated Ringers 1,000 ML 999 ML IV (18:15)
[2024-09-22 18:35] VITALS: BP 132/63; PULSE 71; RESP 16; O2SAT 97
--- NOTE | 2024-09-22 19:37 | PC.NURSE ---
this rn assumed care of pt, pt resting in stretcher, no acute distress noted. iv fluids continuing to administer at this time.
[2024-09-22] MEDS: oxyCODONE HCl Immed Release 5 MG TABLET 10 MG PO (20:24)
--- NOTE | 2024-09-22 20:35 | PC.NURSE ---
pt medicated per mar, tolerated well with water. per provider, okay for pt to eat at this time.
--- NOTE | 2024-09-22 20:55 | P.HPHOSP_ITS ---
History of Present Illness Date of Service: 09/22/24 Attending physician on admission: Urbano Pacheco Chief Complaint: Hematoma Pt is a 69-year-old female with a PMH significant for?paroxysmal AFib on Eliquis, AML s/p stem cell transplant 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 Pt reports she spilled some water on the floor next to her bed last night. Wiped it up with a towel which she left on the floor, and in the morning when she got out of bed she slipped on it and hit her right lower abdomen and hip on her nightstand. Initially put some ice on it, but noticed that she was getting a bruise that was rapidly growing. Went to an urgent care but they did not have imaging at that site and sent her to the ED for further evaluation. Denies any lightheadedness or dizziness. No numbness or tingling in lower extremities. No chest pain/pressure, palpitations. Denies shortness or breath or difficulty breathing. No nausea, vomiting, or diarrhea. In the ED pt's vitals stable and WNL. Labs were significant for H&H 8.8/24.8, creatinine 1.23, AST 43, ALT 51, alk-phos 123, and CPK 196. UA negative for UTI. CT?of head negative for acute intracranial findings. CT of cervical spine negative for acute findings. CT of chest showed soft tissue contusion over lateral aspect of right lower chest without rib fracture, pneumothorax, or pleural effusion. CT of abdomen and pelvis showed hematoma along subcutaneous fat of right abdomen as well as oblique musculature with evidence of active hemorrhage within hematoma. EKG demonstrated normal sinus rhythm without evidence of significant ST elevations or depressions. Pt was treated with fentanyl, oxycodone, IVF, and Kcentra. Pt will be admitted to the hospital for treatment and further observation of hematoma secondary to mechanical fall at home in a pt on anticoagulation and with active bleeding. Review of Systems 2 Review of Systems: Negative except for that which is stated in the [facility] Medical History PAF (paroxysmal atrial fibrillation) Major depressive disorder, recurrent, moderate Dysthymia OCD (obsessive compulsive disorder) Post herpetic neuralgia Social History Alcohol intake: current Alcohol intake frequency: holidays/special occasions only Patient Tobacco Use Status: Never used Tobacco Smoked in Last 30 Days: No Use of substances other than those prescribed or required for medical reasons: Yes Substance Use Type: Marijuana Advance Directives: No Advance Directives Information Provided: Yes Do you have a plan to hurt others: No Plan Nutrition Risks: No Nutritional Risk Meds Allergies Allergy/AdvReac Type Severity Reaction Status Date / Time vancomycin [VANCOMYCIN] Allergy Mild HIVES Verified 09/22/24 15:10 imipenem [IMIPENEM] Allergy Unknown HIVES Verified 09/22/24 15:10 Penicillins [PENICILLINS] Allergy Unknown UNKNOWN Verified 09/22/24 15:10 lisinopril [LISINOPRIL] AdvReac Unknown COUGH Verified 09/22/24 15:10 Active Medications: Current Medications Acetaminophen (Acetaminophen 325 Mg Tablet) 650 mg PO Q6H PRN PRN Reason: Pain, Mild 1-3,fever,headache Calcium Carbonate (Calcium Carbonate 750 Mg Tab.Chew) 750 mg PO Q4H PRN PRN Reason: Heartburn Magnesium Hydroxide (Milk Of Magnesia 30 Ml Oral.Susp) 30 ml PO DAILY PRN PRN Reason: Constipation Melatonin (Melatonin 3 Mg Tablet) 6 mg PO BEDTIME PRN PRN Reason: Insomnia Morphine Sulfate (Morphine Sulfate 4 Mg/Ml Cartridge) 4 mg IVPUSH Q4H PRN; Protocol PRN Reason: Pain, Severe (Pain Scale 7-10) Ondansetron HCl (Ondansetron Hcl 4 Mg/2 Ml Vial) 4 mg IVPUSH Q8H PRN PRN Reason: Nausea and Vomiting Oxycodone HCl (Oxycodone Hcl Immed Release 5 Mg Tablet) 5 mg PO Q6H [facility] Last Admin: 09/22/24 20:35 Dose: Not Given Sodium Chloride (0.9 % Sodium Chloride Flush 3 Ml Syringe) [facility] Home Medications ?Medication ?Instructions ?Recorded ?Confirmed ?Last Taken ?Type gabapentin 300 mg capsule mg PO 10/13/23 06/19/24 Unknown History oxycodone 5 mg tablet mg PO 10/13/23 06/19/24 Unknown History estradiol 0.01% (0.1 mg/gram) vaginal 10/28/23 06/19/24 Unknown History vaginal cream famotidine 20 mg tablet 20 mg PO BID 10/28/23 06/19/24 Unknown History folic acid 1 mg tablet 1 mg PO DAILY 10/28/23 06/19/24 Unknown History losartan 25 mg tablet 25 mg PO DAILY 10/28/23 06/19/24 Unknown History calcipotriene 0.005 % topical cream 1 appl topical QAM 12/14/23 06/19/24 Unknown History cevimeline 30 mg capsule 1 cap PO TID 12/14/23 06/19/24 Unknown History fluorouracil 5 % topical cream 1 appl topical BID 12/14/23 06/19/24 Unknown History peg 3350-electrolytes 236 ml PO 12/14/23 06/19/24 Unknown History gram-22.74 gram-6.74 gram-5.86 gram solution (GaviLyte-G) ciclopirox 8 % topical solution topical DAILY 02/20/24 06/19/24 Unknown History fluoride (sodium) 1.1 % dental gel 0 appl dental 02/20/24 06/19/24 Unknown History (DentaGel) nystatin 100,000 unit/mL oral PO 02/20/24 06/19/24 Unknown History suspension valacyclovir 500 mg tablet 500 mg PO BID 02/20/24 06/19/24 Unknown History chlorhexidine gluconate 0.12 % PO 03/29/24 06/19/24 Unknown History mouthwash clobetasol 0.05 % scalp solution topical 03/29/24 06/19/24 Unknown History dexamethasone 0.5 mg/5 mL oral mg PO 03/29/24 06/19/24 Unknown History solution lidocaine HCl 2 % mucosal solution PO 03/29/24 06/19/24 Unknown History (Lidocaine Viscous) furosemide 20 mg tablet 20 mg PO DAILY 05/22/24 06/19/24 Unknown History hydroxyzine HCl 25 mg tablet 50 mg PO BID PRN itching 07/13/24 Unknown History apixaban 2.5 mg tablet (Eliquis) 2.5 mg PO BID 08/10/24 08/10/24 Unknown History diltiazem HCl 240 mg 240 mg PO DAILY 08/10/24 08/10/24 Unknown History capsule,extended release 24 hr empagliflozin 10 mg tablet 10 mg PO DAILY 08/10/24 08/10/24 Unknown History (Jardiance) levothyroxine 50 mcg tablet 50 mcg PO DAILY 08/10/24 08/10/24 Unknown History Physical Exam 2 Vital Signs and Narrative: Vital Signs: Last Vital Signs Temp 97.8 F 09/22/24 16:54 Pulse 71 09/22/24 18:35 Resp 16 09/22/24 18:35 BP 132/63 09/22/24 18:35 Pulse Ox 97 09/22/24 18:35 O2 Del Method Room Air 09/22/24 18:35 BMI result Body Mass Index 21.4 General: AOx3, no acute distress Resp: CTA bilaterally CVS: S1, S2, RRR GI: Right lower abd tenderness with large area of ecchymosis and swelling, as pictured below. Skin: Warm, dry Neuro: Cranial nerves II-XII grossly intact bilaterally. Motor grossly intact bilaterally Extremities: No edema Psych: Appropriate affect Results Labs 09/22/24 16:51 09/22/24 15:19 Labs: Laboratory Results - last 24 hr 09/22/24 09/22/24 09/22/24 15:19 16:50 16:51 MCV 98.8 H 99.6 H MCH 35.1 H 35.1 H MCHC 35.5 H 35.3 H RDW 15.8 15.7 Plt Count 239 227 MPV 9.8 9.9 Immature Gran % (Auto) 0.4 Neut % (Auto) 71.6 Lymph % (Auto) 14.5 L [place] % (Auto) 12.2 H Eos % (Auto) 1.1 Baso % (Auto) 0.2 Lymph # (Auto) 1.2 [place] # (Auto) 1.0 Eos # (Auto) 0.1 Baso # (Auto) 0.0 Abs Immat Gran (auto) 0.03 Absolute Neuts (auto) 5.9 Absolute Nucleated RBC 0.030 H 0.030 H Nucleated RBC % (auto) 0.4 H 0.4 H PT 12.9 H INR 1.1 Anion Gap 9 L Estim Creat Clear Calc 41.3 Estimated GFR 43 Random Glucose 104 Calcium 8.7 Magnesium 2.2 Total Bilirubin 0.3 Direct Bilirubin 0.1 AST 43 H ALT 51 H Alkaline Phosphatase 123 H Total Creatine Kinase 196 H Total Protein 6.4 L Albumin 3.8 Urine Color Yellow Urine Appearance Clear Urine pH 6.0 Ur Specific [place] 1.010 Urine Protein Negative Urine Glucose (UA) 250 H Urine Ketones Negative Urine Blood Negative Urine Nitrite Negative Ur Leukocyte Esterase Negative Blood Type A Positive Antibody Screen NEGATIVE Assessment and Plan (1) Hematoma of right flank: Qualifiers: Encounter type: initial encounter Qualified Code(s): S30.1XXA - Contusion of abdominal wall, initial encounter Status: Acute Plan Pt is a 69-year-old female with a PMH significant for?paroxysmal AFib on Eliquis, AML s/p stem cell transplant 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 Pt will be admitted to the hospital for treatment and further observation of hematoma secondary to mechanical fall at home in a pt on anticoagulation and with active bleeding. Right flank hematoma Secondary to mechanical fall at home, on Eliquis CT showing hematoma of right abdomen active hemorrhage within hematoma Pt given Kcentra in the ED Hold Eliquis General surgery consult Conservative management Monitor H&H Paroxysmal AFib Hold Eliquis Continue diltiazem HTN Continue losartan Hypothyroidism Continue levothyroxine GERD Continue famotidine Mood disorder Continue mood stabilizers Full Code Attending:?Dr. Pacheco DVT Prophylaxis: Pneumatic compression due to hematoma with active hemorrhage Pt will require a hospitalization of at least two nights for treatment and further evaluation of right flank hematoma with active hemorrhaging secondary to a mechanical fall at home in a pt on anticoagulation. Pt will require hospital level care for close monitoring of H&H as well as general surgery consultation for possible further intervention if hemorrhaging continues. Quality Stroke Does the patient have a stroke diagnosis?: No VTE Prior VTE?: No VTE Risk Level:: Medical - moderate - high VTE Device Contraindication: N/A - Device Ordered VTE Drug Contraindication: Treatment Not Indicated
--- NOTE | 2024-09-22 21:27 | MHC.EDTECH ---
Pt moved from main ED to overflow bed 4. Pt used bathroom and ambulated back to bed with slow steady gait. Gave pt water, sandwich and crackers per request. RN approved pt to ambulate around unit with walker for assistance.
--- NOTE | 2024-09-22 21:28 | PC.NURSE ---
pt arrived to overflow, requesting to walk in unit. ambulation trial done by this RN. pt walks well with a slow steady gait but did fall today, requested pt use a walker to walk independently in the unit. pt agreeable and happy to be out of bed and moving, pt is active at baseline and does not want to stay in bed. pt educated about fall prevention and walker use at this time
[2024-09-22 22:13] VITALS: BP 128/61; PULSE 71; RESP 16; TEMP 36.6; O2SAT 99
[2024-09-22] MEDS: LORazepam 0.5 MG TABLET PO (22:28)
[2024-09-23] VITALS (9 sets, daily range): BP systolic 109–176; BP diastolic 56–72; PULSE 68–79; RESP 16–18; TEMP 36.7–37.4; O2SAT 95–98; BMI 20.7
--- NOTE | 2024-09-23 00:23 | PC.NURSE ---
med rec completed with pt based of pharmacy list in chart/record. pt reports levothyroxine was increased to 75mcg, gabapentin is 600mg TID, oxycodone is 10mg Q4H PRN. pt also reports she is no longer taking most creams/solutions. not listed on her med list was restasis eye drops which she does take.
[2024-09-23] MEDS: hydrOXYzine HCL 50 MG TABLET PO ×3 (01:13→21:51)
[2024-09-23] MEDS: Gabapentin 300 MG CAPSULE 600 MG PO ×4 (01:13→21:47)
[2024-09-23] MEDS: 0.9 % Sodium Chloride Flush 3 ML SYRINGE IVFLUSH ×4 (01:14→21:52)
[2024-09-23] MEDS: oxyCODONE HCl Immed Release 5 MG TABLET PO ×2 (02:22→07:20)
[2024-09-23] MEDS: Famotidine 20 MG TABLET PO ×3 (02:36→21:48)
[2024-09-23] MEDS: Morphine Sulfate 4 MG/ML CARTRIDGE IVPUSH ×2 (04:06→10:31)
[2024-09-23 06:43] LABS: MANUAL DIFF FLAG NO
[2024-09-23 07:03] LABS: Basophils Percent Auto 0.3 % (0-2); Hematocrit 21.1 % (37.0-47.0); Hemoglobin 7.5 g/dl (12.0-16.0); Imm Gran Abs Auto 0.04 X10*3/uL (0.00-0.03); Imm Gran Pct Auto 0.5 % (0.0-0.4); Lymphocytes Absolute Auto 0.9 X10*3/uL (1.2-4.9); Lymphocytes Percent Auto 11.3 % (20-40); Mean Corpuscular HGB Conc 35.5 g/dl (31.0-35.0); Mean Corpuscular Hemoglobin 34.9 pg (27.0-33.0); Mean Corpuscular Volume 98.1 fL (80.0-98.0); Mean Platelet Volume 10.6 fL (9.4-12.3); Monocytes Absolute Auto 0.5 X10*3/uL (0.1-1.2); Monocytes Percent Auto 7.1 % (2-11); NRBC Pct Auto 0.3 /100WBC (0.0-0.2); Neutrophils Absolute Auto 6.1 x10*3/uL (2.0-8.3); Neutrophils Percent Auto 80.8 % (45-73); Platelet Count 216 X10*3/uL (160-400); Red Blood Count 2.15 X10*6/uL (4.20-5.50); Red Cell Distribution Width 15.6 % (11.0-16.0); White Blood Count 7.6 X10*3/uL (4.8-10.8)
[2024-09-23 07:05] LABS: Prothrombin Time 11.7 SEC (10.9-12.4)
[2024-09-23 07:21] LABS: Anion Gap 12 (12-20); Blood Urea Nitrogen 32 mg/dL (9-16); Calcium 8.4 mg/dL (8.4-10.2); Carbon Dioxide 26 mmol/L (22-29); Chloride 107 mmol/L (96-108); Creatinine Clr Calc Pharmacy 53.4; Estimated Glomerular Filt Rate 60; Glucose Random 96 mg/dL (60-115); Potassium 4.2 mmol/L (3.3-5.1); Sodium 141 mmol/L (135-145)
--- NOTE | 2024-09-23 08:37 | HO.PM.IMPN ---
Subjective Subjective Date of Service: 09/23/24 Review of Systems Follow up hematoma after mechanical fall Mild pain Physical Exam Vital Signs: Vital Signs: Last Vital Signs Temp 98.7 F 09/23/24 08:32 Pulse 77 09/23/24 08:32 Resp 18 09/23/24 08:32 BP 125/65 09/23/24 08:32 Pulse Ox 98 09/23/24 07:34 O2 Del Method Room Air 09/23/24 07:34 BMI result Body Mass Index 20.7 Appearing in no acute distress lung sounds are clear to auscultation heart regular rate rhythm, clear S1, S2 positive bowel sounds, abdomen is soft, nontender neuro patient is alert x3, no focal deficits Right abdomen and flank hematoma Objective Data Active Medications Acetaminophen (Acetaminophen 325 Mg Tablet) 650 mg PO Q6H PRN PRN Reason: Pain, Mild 1-3,fever,headache Calcium Carbonate (Calcium Carbonate 750 Mg Tab.Chew) 750 mg PO Q4H PRN PRN Reason: Heartburn Magnesium Hydroxide (Milk Of Magnesia 30 Ml Oral.Susp) 30 ml PO DAILY PRN PRN Reason: Constipation Melatonin (Melatonin 3 Mg Tablet) 6 mg PO BEDTIME PRN PRN Reason: Insomnia Morphine Sulfate (Morphine Sulfate 4 Mg/Ml Cartridge) 4 mg IVPUSH Q4H PRN; Protocol PRN Reason: Pain, Severe (Pain Scale 7-10) Last Admin: 09/23/24 04:06 Dose: 4 mg Documented By: JODIE Ondansetron HCl (Ondansetron Hcl 4 Mg/2 Ml Vial) 4 mg IVPUSH Q8H PRN PRN Reason: Nausea and Vomiting Oxycodone HCl (Oxycodone Hcl Immed Release 5 Mg Tablet) 5 mg PO Q6H [facility] Last Admin: 09/23/24 07:20 Dose: 5 mg Documented By: DRISS Sodium Chloride (0.9 % Sodium Chloride Flush 3 Ml Syringe) 3 ml IVFLUSH QSHIFT [facility] Last Admin: 09/23/24 07:20 Dose: 3 ml Documented By: DRISS Labs 09/23/24 05:46 09/23/24 05:46 Labs: Laboratory Results - last 24 hr 09/22/24 09/22/24 09/22/24 15:19 16:50 16:51 MCV 98.8 H 99.6 H MCH 35.1 H 35.1 H MCHC 35.5 H 35.3 H RDW 15.8 15.7 Plt Count 239 227 MPV 9.8 9.9 Immature Gran % (Auto) 0.4 Neut % (Auto) 71.6 Lymph % (Auto) 14.5 L [place] % (Auto) 12.2 H Eos % (Auto) 1.1 Baso % (Auto) 0.2 Lymph # (Auto) 1.2 [place] # (Auto) 1.0 Eos # (Auto) 0.1 Baso # (Auto) 0.0 Abs Immat Gran (auto) 0.03 Absolute Neuts (auto) 5.9 Absolute Nucleated RBC 0.030 H 0.030 H Nucleated RBC % (auto) 0.4 H 0.4 H PT 12.9 H INR 1.1 Anion Gap 9 L Estim Creat Clear Calc 41.3 Estimated GFR 43 Random Glucose 104 Calcium 8.7 Magnesium 2.2 Total Bilirubin 0.3 Direct Bilirubin 0.1 AST 43 H ALT 51 H Alkaline Phosphatase 123 H Total Creatine Kinase 196 H Total Protein 6.4 L Albumin 3.8 Urine Color Yellow Urine Appearance Clear Urine pH 6.0 Ur Specific [place] 1.010 Urine Protein Negative Urine Glucose (UA) 250 H Urine Ketones Negative Urine Blood Negative Urine Nitrite Negative Ur Leukocyte Esterase Negative Blood Type A Positive Antibody Screen NEGATIVE Crossmatch See Detail 09/23/24 09/23/24 05:45 05:46 MCV 98.1 H MCH 34.9 H MCHC 35.5 H RDW 15.6 Plt Count 216 MPV 10.6 Immature Gran % (Auto) 0.5 H Neut % (Auto) 80.8 H Lymph % (Auto) 11.3 L [place] % (Auto) 7.1 Eos % (Auto) 0.0 Baso % (Auto) 0.3 Lymph # (Auto) 0.9 L [place] # (Auto) 0.5 Eos # (Auto) 0.0 Baso # (Auto) 0.0 Abs Immat Gran (auto) 0.04 H Absolute Neuts (auto) 6.1 Absolute Nucleated RBC 0.020 H Nucleated RBC % (auto) 0.3 H PT 11.7 INR 1.0 Anion Gap 12 Estim Creat Clear Calc 53.4 Estimated GFR 60 Random Glucose 96 Calcium 8.4 Magnesium Total Bilirubin Direct Bilirubin AST ALT Alkaline Phosphatase Total Creatine Kinase Total Protein Albumin Urine Color Urine Appearance Urine pH Ur Specific [place] Urine Protein Urine Glucose (UA) Urine Ketones Urine Blood Urine Nitrite Ur Leukocyte Esterase Blood Type Antibody Screen Crossmatch Assessment and Plan (1) Hematoma of right flank: Status: Acute Plan Pt is a 69-year-old female with a PMH significant for?paroxysmal AFib on Eliquis, AML s/p stem cell transplant 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 Pt will be admitted to the hospital for treatment and further observation of hematoma secondary to mechanical fall at home in a pt on anticoagulation and with active bleeding. Acute anemia likely from hematoma 1 unit PRBC ordered check HH post tx Right flank hematoma Secondary to mechanical fall at home, on Eliquis CT showing hematoma of right abdomen active hemorrhage within hematoma Pt given Kcentra in the ED Hold Eliquis General surgery consult Conservative management Monitor H&H Paroxysmal AFib Hold Eliquis Continue diltiazem HTN Continue losartan Hypothyroidism Continue levothyroxine GERD Continue famotidine Mood disorder Continue mood stabilizers Full Code Attending:?Dr. Castillo DVT Prophylaxis: Pneumatic compression due to hematoma with active hemorrhage Quality Stroke Does the patient have a stroke diagnosis?: No VTE Prior VTE?: No VTE Risk Level:: Medical - moderate - high VTE Device Contraindication: N/A - Device Ordered VTE Drug Contraindication: Treatment Not Indicated
--- NOTE | 2024-09-23 08:37 | PC.NURSE ---
Provider okay with making pt a low fall risk. Pt steady on her feet.
--- NOTE | 2024-09-23 09:20 | PHA.MEDREC ---
Addendum entered by Michelle Moe RPh 09/23/24 10:00: REVIEWED BY [facility] Original Note: Pharmacy Consult ? Medication Reconciliation Pharmacy has completed the medication reconciliation. Spoke with patient to confirm medications. She is no longer taking escitalopram, amiodarone, and metoprolol. 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 She reports still taking folic acid and mirtazepine. She is currently taking duloxetine 60 mg daily. Vitamins she takes daily: L-lysine, Vitamin D + K2, a probiotic, zinc, and a multivitamin.
--- NOTE | 2024-09-23 09:23 | MHC.CM.PN ---
PT REPORTS SHE LIVES ALONE AND IS INDEPENDENT WITH CARE SHE ATTENDS OUTPATIENT PT AT [facility] IN [place] PT HAS NO DME AND DRIVES COPY OF HCP REQUESTED PCP: SHAYLEE JENSEN IMM DELIVERED PT REPORTS HER FAMILY HAS BEEN PRESSURING TO TO GET SERVICES IN THE HOME SHE REPORTS SHE ARRANGES HER PILLS WEEKLY AND HAS NO PROBLEM COMPLETING HOME AND SELF CARE TYPES OF SERVICES WERE DISCUSSED AND PT STATES SHE DOES NOT FEEL SHE NEEDS THEM SHE REPORTS SHE WOULD PREFER TO RETURN TO OUTPATIENT PT AT [facility] FAMILY WILL TRANSPORT AT [place]
[2024-09-23] MEDS: dilTIAZem HCL CD 240 MG CAP.ER.DEG PO (10:20)
[2024-09-23] MEDS: Losartan Potassium 25 MG TABLET PO (10:20)
[2024-09-23] MEDS: Furosemide 20 MG TABLET PO (10:20)
[2024-09-23] MEDS: valACYclovir HCL 500 MG TABLET PO ×2 (10:42→21:47)
[2024-09-23] MEDS: Hydrocortisone 1 % Cream 28.35 GM TUBE 1 APPL TOPICAL ×2 (12:35→23:20)
[2024-09-23] MEDS: oxyCODONE HCl Immed Release 5 MG TABLET 10 MG PO ×3 (13:00→21:47)
--- NOTE | 2024-09-23 13:23 | PM.CNGS ---
History of Present Illness Consult details Consult date: 09/23/24 Narrative: Patient was a 69-year-old female with few medical issues who was on Eliquis for cardiac dysrhythmia and sustained a fall yesterday at home with her right flank striking her night stand. She presents here with a right flank hematoma. Surgical consultation regarding this significant flank hematoma. Patient had no other significant injuries. She underwent reversal of anticoagulation with Kcentra and restorative measures. She also received a unit of blood because of a decreasing H&H. At present, patient was sitting up conversant eating her diet with vital signs stable. She has some right flank discomfort as well as some anterior costal discomfort. No respiratory issues. No abdominal issues. Chart was reviewed and patient evaluated PMFSH Past Medical History Medical History PAF (paroxysmal atrial fibrillation) Major depressive disorder, recurrent, moderate Dysthymia OCD (obsessive compulsive disorder) Post herpetic neuralgia Social History Social History Household Members: None Housing: House Do you presently have visiting nurse or other home services: No Alcohol intake: current Alcohol intake frequency: holidays/special occasions only Patient Tobacco Use Status: Never used Tobacco Substance Use Type: Marijuana service: No Meds Allergies Allergy/AdvReac Type Severity Reaction Status Date / Time vancomycin [VANCOMYCIN] Allergy Mild HIVES Verified 09/22/24 15:10 imipenem [IMIPENEM] Allergy Unknown HIVES Verified 09/22/24 15:10 Penicillins [PENICILLINS] Allergy Unknown UNKNOWN Verified 09/22/24 15:10 lisinopril [LISINOPRIL] AdvReac Unknown COUGH Verified 09/22/24 15:10 Active Medications: Current Medications Acetaminophen (Acetaminophen 325 Mg Tablet) 650 mg PO Q6H PRN PRN Reason: Pain, Mild 1-3,fever,headache Calcium Carbonate (Calcium Carbonate 750 Mg Tab.Chew) 750 mg PO Q4H PRN PRN Reason: Heartburn Diltiazem HCl (Diltiazem Hcl Cd 240 Mg Cap.Er.Deg) 240 mg PO DAILY [facility]; Protocol Last Admin: 09/23/24 10:20 Dose: 240 mg Famotidine (Famotidine 20 Mg Tablet) 20 mg PO BID [facility] Last Admin: 09/23/24 10:20 Dose: 20 mg Furosemide (Furosemide 20 Mg Tablet) 20 mg PO DAILY [facility]; Protocol Last Admin: 09/23/24 10:20 Dose: 20 mg Gabapentin (Gabapentin 300 Mg Capsule) 600 mg PO TID [facility] Last Admin: 09/23/24 10:20 Dose: 600 mg Hydrocortisone (Hydrocortisone 1 % Cream 28.35 Gm Tube) 1 appl TOPICAL BID PRN; Protocol PRN Reason: Itching Last Admin: 09/23/24 12:35 Dose: 1 appl Hydroxyzine HCl (Hydroxyzine Hcl 50 Mg Tablet) 50 mg PO BID PRN PRN Reason: itching Last Admin: 09/23/24 10:34 Dose: 50 mg Levothyroxine Sodium (Levothyroxine Sodium 75 Mcg Tablet) 75 mcg PO DAILY@0600 [facility] Lorazepam (Lorazepam 0.5 Mg Tablet) 0.5 mg PO DAILY PRN PRN Reason: anxiety Losartan Potassium (Losartan Potassium 25 Mg Tablet) 25 mg PO DAILY [facility]; Protocol Last Admin: 09/23/24 10:20 Dose: 25 mg Magnesium Hydroxide (Milk Of Magnesia 30 Ml Oral.Susp) 30 ml PO DAILY PRN PRN Reason: Constipation Melatonin (Melatonin 3 Mg Tablet) 6 mg PO BEDTIME PRN PRN Reason: Insomnia Morphine Sulfate (Morphine Sulfate 4 Mg/Ml Cartridge) 4 mg IVPUSH Q4H PRN; Protocol PRN Reason: Pain, Severe (Pain Scale 7-10) Last Admin: 09/23/24 10:31 Dose: 4 mg Ondansetron HCl (Ondansetron Hcl 4 Mg/2 Ml Vial) 4 mg IVPUSH Q8H PRN PRN Reason: Nausea and Vomiting Oxycodone HCl (Oxycodone Hcl Immed Release 5 Mg Tablet) 10 mg PO Q4H [facility] Last Admin: 09/23/24 13:00 Dose: 10 mg Sodium Chloride (0.9 % Sodium Chloride Flush 3 Ml Syringe) 3 ml IVFLUSH QSHIFT [facility] Last Admin: 09/23/24 07:20 Dose: 3 ml Valacyclovir HCl (Valacyclovir Hcl 500 Mg Tablet) 500 mg PO BID [facility] Last Admin: 09/23/24 10:42 Dose: 500 mg Home Medications ?Medication ?Instructions ?Recorded ?Confirmed ?Last Taken ?Type gabapentin 300 mg capsule 600 mg PO TID 10/13/23 09/23/24 Unknown History oxycodone 5 mg tablet 10 mg PO Q4H PRN Pain 10/13/23 09/23/24 Unknown History estradiol 0.01% (0.1 mg/gram) 1 appl vaginal 2XW 10/28/23 09/23/24 Unknown History vaginal cream famotidine 20 mg tablet 20 mg PO BID 10/28/23 09/23/24 Unknown History folic acid 1 mg tablet 1 mg PO DAILY 10/28/23 09/23/24 Unknown History losartan 25 mg tablet 25 mg PO DAILY 10/28/23 09/23/24 Unknown History cevimeline 30 mg capsule 1 cap PO TID PRN Dry Mouth 12/14/23 09/23/24 Unknown History fluorouracil 5 % topical cream 1 appl topical DAILY PRN carcinoma 12/14/23 09/23/24 Unknown History fluoride (sodium) 1.1 % dental gel 1 appl dental DAILY 02/20/24 09/23/24 Unknown History (DentaGel) valacyclovir 500 mg tablet 500 mg PO BID 02/20/24 09/23/24 Unknown History furosemide 20 mg tablet 20 mg PO DAILY 05/22/24 09/23/24 Unknown History hydroxyzine HCl 25 mg tablet 25 mg PO Q8H PRN itching 07/13/24 09/23/24 Unknown History apixaban 2.5 mg tablet (Eliquis) 2.5 mg PO BID 08/10/24 09/23/24 Unknown History diltiazem HCl 240 mg 240 mg PO DAILY 08/10/24 09/23/24 Unknown History capsule,extended release 24 hr empagliflozin 10 mg tablet 10 mg PO DAILY 08/10/24 09/23/24 Unknown History (Jardiance) Lactobacillus acidophilus 10 10,000 mmu cells PO DAILY 09/23/24 09/23/24 Unknown History billion cell capsule (Probiotic) acetaminophen 500 mg tablet 500 mg PO Q6H PRN Pain 09/23/24 09/23/24 Unknown History budesonide 3 mg 9 mg PO DAILY PRN fecal 09/23/24 09/23/24 Unknown History capsule,delayed,extended release incontinence/flare calcipotriene 0.005 % topical cream 1 appl topical DAILY PRN carcinoma 09/23/24 09/23/24 Unknown History duloxetine 30 mg capsule,delayed 60 mg PO DAILY 09/23/24 09/23/24 Unknown History release levothyroxine 75 mcg tablet 75 mcg PO DAILY 09/23/24 09/23/24 Unknown History lysine 500 mg tablet (L-Lysine) 1,000 mg PO DAILY 09/23/24 09/23/24 Unknown History mirtazapine 7.5 mg tablet 7.5 mg PO BEDTIME 09/23/24 09/23/24 Unknown History multivitamin 1 tab PO DAILY 09/23/24 09/23/24 Unknown History vitamin D3 125 mcg (5,000 1 cap PO DAILY 09/23/24 09/23/24 Unknown History unit)-vitamin K2 90 mcg capsule zinc acetate 25 mg (zinc) capsule 25 mg PO DAILY 09/23/24 09/23/24 Unknown History Physical Exam Vital Signs: Vital Signs: Last Vital Signs Temp 99.4 F 09/23/24 10:38 Pulse 76 09/23/24 10:38 Resp 16 09/23/24 10:38 BP 140/70 H 09/23/24 10:38 Pulse Ox 98 09/23/24 07:34 O2 Del Method Room Air 09/23/24 07:34 BMI result Body Mass Index 20.7 Chest: Other: Chest breath sounds bilaterally GI: Other: Abdomen is soft, benign. Patient has a significant right mid flank ecchymosis/hematoma with some progressive gravity induced dissection of this along her anterior abdominal wall and groin. I told the patient this was to be expected. Results Labs 09/23/24 05:46 09/23/24 05:46 Labs: Abnormal lab results 09/22/24 09/22/24 09/22/24 Range/Units 15:19 16:50 16:51 RBC 2.51 L 2.42 L (4.20-5.50) X10*6/uL Hgb 8.8 L 8.5 L (12.0-16.0) g/dl Hct 24.8 L 24.1 L (37.0-47.0) % MCV 98.8 H 99.6 H (80.0-98.0) fL MCH 35.1 H 35.1 H (27.0-33.0) pg MCHC 35.5 H 35.3 H (31.0-35.0) g/dl Immature Gran % (Auto) (0.0-0.4) % Neut % (Auto) (45-73) % Lymph % (Auto) 14.5 L (20-40) % [place] % (Auto) 12.2 H (2-11) % Lymph # (Auto) (1.2-4.9) X10*3/uL Abs Immat Gran (auto) (0.00-0.03) X10*3/uL Absolute Nucleated RBC 0.030 H 0.030 H (0.0-0.012) X10*3/uL Nucleated RBC % (auto) 0.4 H 0.4 H (0.0-0.2) /100WBC PT 12.9 H (10.9-12.4) SEC Anion Gap 9 L (12-20) BUN 40 H (9-16) mg/dL AST 43 H (5-31) U/L ALT 51 H (0-31) U/L Alkaline Phosphatase 123 H (39-117) U/L Total Creatine Kinase 196 H (26-140) U/L Total Protein 6.4 L (6.5-8.0) g/dL Urine Glucose (UA) 250 H (Negative) mg/dL Crossmatch See Detail 09/23/24 Range/Units 05:46 RBC 2.15 L (4.20-5.50) X10*6/uL Hgb 7.5 L (12.0-16.0) g/dl Hct 21.1 L (37.0-47.0) % MCV 98.1 H (80.0-98.0) fL MCH 34.9 H (27.0-33.0) pg MCHC 35.5 H (31.0-35.0) g/dl Immature Gran % (Auto) 0.5 H (0.0-0.4) % Neut % (Auto) 80.8 H (45-73) % Lymph % (Auto) 11.3 L (20-40) % [place] % (Auto) (2-11) % Lymph # (Auto) 0.9 L (1.2-4.9) X10*3/uL Abs Immat Gran (auto) 0.04 H (0.00-0.03) X10*3/uL Absolute Nucleated RBC 0.020 H (0.0-0.012) X10*3/uL Nucleated RBC % (auto) 0.3 H (0.0-0.2) /100WBC PT (10.9-12.4) SEC Anion Gap (12-20) BUN 32 H (9-16) mg/dL AST (5-31) U/L ALT (0-31) U/L Alkaline Phosphatase (39-117) U/L Total Creatine Kinase (26-140) U/L Total Protein (6.5-8.0) g/dL Urine Glucose (UA) (Negative) mg/dL Crossmatch Short CBC 09/22/24 09/22/24 09/23/24 Range/Units 15:19 16:51 05:46 WBC 8.3 8.2 7.6 (4.8-10.8) X10*3/uL Hgb 8.8 L 8.5 L 7.5 L (12.0-16.0) g/dl Hct 24.8 L 24.1 L 21.1 L (37.0-47.0) % Plt Count 239 227 216 (160-400) X10*3/uL BMP 09/22/24 09/23/24 15:19 05:46 Sodium 136 141 Potassium 4.4 4.2 Chloride 104 107 Carbon Dioxide 27 26 BUN 40 H 32 H Creatinine 1.23 0.93 Calcium 8.7 8.4 Cardiac Enzymes 09/22/24 Range/Units 15:19 Total Creatine Kinase 196 H (26-140) U/L Liver Function 09/22/24 Range/Units 15:19 Total Bilirubin 0.3 (0.0-1.0) mg/dL Direct Bilirubin 0.1 (0.0-0.5) mg/dL AST 43 H (5-31) U/L ALT 51 H (0-31) U/L Alkaline Phosphatase 123 H (39-117) U/L Albumin 3.8 (3.5-5.0) g/dL Urine 09/22/24 Range/Units 16:50 Urine Color Yellow Urine Appearance Clear Urine pH 6.0 (5.0-9.0) Ur Specific [place] 1.010 (1.005-1.025) Urine Protein Negative (Neg-Trace) mg/dL Urine Glucose (UA) 250 H (Negative) mg/dL All other labs normal. Assessment and Plan (1) Hematoma of right flank: Qualifiers: Encounter type: initial encounter Qualified Code(s): S30.1XXA - Contusion of abdominal wall, initial encounter Status: Acute Plan At present, continue restorative measures, serial H&H, incentive spirometry, out of bed. The overwhelming majority of such abdominal hematomas will self tamponade and be self-limited. This was explained to the patient as well. No acute surgical intervention required at this time. Procedures Date of Service Date of Service: 09/23/24
[2024-09-23] MEDS: LORazepam 0.5 MG TABLET PO (21:51)
[2024-09-24] VITALS: BP 117/56; PULSE 74; RESP 16; TEMP 36.8; O2SAT 94
[2024-09-24] MEDS: oxyCODONE HCl Immed Release 5 MG TABLET 10 MG PO ×3 (03:15→12:03)
[2024-09-24 03:20] VITALS: BP 145/70; PULSE 77; RESP 16; TEMP 36.7; O2SAT 96
[2024-09-24] MEDS: Levothyroxine Sodium 75 MCG TABLET PO (05:22)
[2024-09-24 07:27] LABS: Hematocrit 23.2 % (37.0-47.0); Hemoglobin 8.2 g/dl (12.0-16.0); Mean Corpuscular HGB Conc 35.3 g/dl (31.0-35.0); Mean Corpuscular Hemoglobin 35.2 pg (27.0-33.0); Mean Corpuscular Volume 99.6 fL (80.0-98.0); Mean Platelet Volume 10.6 fL (9.4-12.3); NRBC Pct Auto 0.3 /100WBC (0.0-0.2); Platelet Count 197 X10*3/uL (160-400); Red Blood Count 2.33 X10*6/uL (4.20-5.50); Red Cell Distribution Width 16.2 % (11.0-16.0); White Blood Count 7.3 X10*3/uL (4.8-10.8)
[2024-09-24] MEDS: 0.9 % Sodium Chloride Flush 3 ML SYRINGE IVFLUSH (07:31)
[2024-09-24 07:38] LABS: Anion Gap 11 (12-20); Blood Urea Nitrogen 33 mg/dL (9-16); Calcium 8.4 mg/dL (8.4-10.2); Carbon Dioxide 26 mmol/L (22-29); Chloride 106 mmol/L (96-108); Estimated Glomerular Filt Rate 38; Glucose Random 101 mg/dL (60-115); Potassium 4.5 mmol/L (3.3-5.1); Sodium 138 mmol/L (135-145)
[2024-09-24 07:42] VITALS: BP 132/72; PULSE 73; RESP 16; TEMP 36.9; O2SAT 96
[2024-09-24 08:56] VITALS: BP 132/72
[2024-09-24] MEDS: Losartan Potassium 25 MG TABLET PO (08:56)
[2024-09-24] MEDS: dilTIAZem HCL CD 240 MG CAP.ER.DEG PO (08:56)
[2024-09-24] MEDS: Gabapentin 300 MG CAPSULE 600 MG PO ×2 (08:56→14:30)
[2024-09-24 08:57] VITALS: BP 132/72
[2024-09-24] MEDS: valACYclovir HCL 500 MG TABLET PO (08:57)
[2024-09-24] MEDS: Famotidine 20 MG TABLET PO (08:57)
[2024-09-24] MEDS: Furosemide 20 MG TABLET PO (08:57)
--- NOTE | 2024-09-24 10:46 | PM.PNGS ---
Subjective Subjective Date of Service: 09/24/24 Interval history: Feels sore at right flank, abdomen. Reports bruising is extending down into groin now. Physical Exam Vital Signs: Vital Signs: Last Vital Signs Temp 98.4 F 09/24/24 07:42 Pulse 73 09/24/24 07:42 Resp 16 09/24/24 07:42 BP 132/72 09/24/24 08:57 Pulse Ox 96 09/24/24 07:42 O2 Del Method Room Air 09/24/24 07:42 BMI result Body Mass Index 20.7 Const: General: comfortable, no acute distress and alert Skin: Other: significant ecchymosis of mid right flank extending into RLQ and right groin Objective Data Active Medications Acetaminophen (Acetaminophen 325 Mg Tablet) 650 mg PO Q6H PRN PRN Reason: Pain, Mild 1-3,fever,headache Calcium Carbonate (Calcium Carbonate 750 Mg Tab.Chew) 750 mg PO Q4H PRN PRN Reason: Heartburn Diltiazem HCl (Diltiazem Hcl Cd 240 Mg Cap.Er.Deg) 240 mg PO DAILY [facility]; Protocol Last Admin: 09/24/24 08:56 Dose: 240 mg Documented By: LETICIA Famotidine (Famotidine 20 Mg Tablet) 20 mg PO BID [facility] Last Admin: 09/24/24 08:57 Dose: 20 mg Documented By: LETICIA Furosemide (Furosemide 20 Mg Tablet) 20 mg PO DAILY [facility]; Protocol Last Admin: 09/24/24 08:57 Dose: 20 mg Documented By: LETICIA Gabapentin (Gabapentin 300 Mg Capsule) 600 mg PO TID [facility] Last Admin: 09/24/24 08:56 Dose: 600 mg Documented By: LETICIA Hydrocortisone (Hydrocortisone 1 % Cream 28.35 Gm Tube) 1 appl TOPICAL BID PRN; Protocol PRN Reason: Itching Last Admin: 09/23/24 23:20 Dose: 1 appl Documented By: MUNA Hydroxyzine HCl (Hydroxyzine Hcl 50 Mg Tablet) 50 mg PO BID PRN PRN Reason: itching Last Admin: 09/23/24 21:51 Dose: 50 mg Documented By: MUNA Levothyroxine Sodium (Levothyroxine Sodium 75 Mcg Tablet) 75 mcg PO DAILY@0600 [facility] Last Admin: 09/24/24 05:22 Dose: 75 mcg Documented By: MUNA Lorazepam (Lorazepam 0.5 Mg Tablet) 0.5 mg PO DAILY PRN PRN Reason: anxiety Last Admin: 09/23/24 21:51 Dose: 0.5 mg Documented By: MUNA Losartan Potassium (Losartan Potassium 25 Mg Tablet) 25 mg PO DAILY [facility]; Protocol Last Admin: 09/24/24 08:56 Dose: 25 mg Documented By: LETICIA Magnesium Hydroxide (Milk Of Magnesia 30 Ml Oral.Susp) 30 ml PO DAILY PRN PRN Reason: Constipation Melatonin (Melatonin 3 Mg Tablet) 6 mg PO BEDTIME PRN PRN Reason: Insomnia Morphine Sulfate (Morphine Sulfate 4 Mg/Ml Cartridge) 4 mg IVPUSH Q4H PRN; Protocol PRN Reason: Pain, Severe (Pain Scale 7-10) Last Admin: 09/23/24 10:31 Dose: 4 mg Documented By: DRISS Ondansetron HCl (Ondansetron Hcl 4 Mg/2 Ml Vial) 4 mg IVPUSH Q8H PRN PRN Reason: Nausea and Vomiting Oxycodone HCl (Oxycodone Hcl Immed Release 5 Mg Tablet) 10 mg PO Q4H PRN PRN Reason: Pain, Moderate(Pain Scale 4-6) Last Admin: 09/24/24 07:34 Dose: 10 mg Documented By: LETICIA Sodium Chloride (0.9 % Sodium Chloride Flush 3 Ml Syringe) [facility] Last Admin: 09/24/24 07:31 Dose: 3 ml Documented By: LETICIA Valacyclovir HCl (Valacyclovir Hcl 500 Mg Tablet) 500 mg PO BID [facility] Last Admin: 09/24/24 08:57 Dose: 500 mg Documented By: LETICIA Labs 09/24/24 05:33 09/24/24 05:33 Labs: Laboratory Results - last 24 hr 09/24/24 05:33 MCV 99.6 H MCH 35.2 H MCHC 35.3 H RDW 16.2 H Plt Count 197 MPV 10.6 Absolute Nucleated RBC 0.020 H Nucleated RBC % (auto) 0.3 H Anion Gap 11 L Estim Creat Clear Calc 36.0 Estimated GFR 38 Random Glucose 101 Calcium 8.4 Procedures Date of Service Date of Service: 09/24/24 Progress Note: A&P Assessment and plan (1) Hematoma of right flank: Status: Acute Plan Cont conservative management. Extension of hematoma/ecchymosis due to gravity. Hemodynamically stable. Labs reviewed- H/H slightly improved from yesterday after receiving 1U PRBC. Cr slightly elevated this morning. Surgicall stable. Dc when medically cleared. Would hold eliquis for 1-2 weeks if possible. Discussed lengthy time period for hematoma resolution, gradual increase in activities, avoid heavy lifting for now. Asking for PT consult. Time Spent With Patient Time: Total time managing care of this patient today ____ minutes. Quality Stroke Does the patient have a stroke diagnosis?: No VTE Prior VTE?: No VTE Risk Level:: Medical - moderate - high VTE Device Contraindication: N/A - Device Ordered VTE Drug Contraindication: Treatment Not Indicated
[2024-09-24 11:24] VITALS: BP 132/72
[2024-09-24] MEDS: LORazepam 0.5 MG TABLET PO (12:03)
--- NOTE | 2024-09-24 12:27 | PM.DS ---
DS: Providers Provider Date of Service: 09/24/24 Date of admission: 09/22/24 20:23 Date of discharge: 09/24/24 Primary care physician: Unknown Physician Consults: 09/22/24 20:23 Consult to General Surgery Routine Consulting Provider: [facility] General Surgeons Reason for consultation: Hematoma along the subcutaneous fat of the right abdomen DS: Diagnosis Discharge Diagnosis (1) Hematoma of right flank: Status: Acute DS: Summary Hospital Course Hospital Course: History and physical as per admitting provider. Pt is a 69-year-old female with a PMH significant for?paroxysmal AFib on Eliquis, AML s/p stem cell transplant 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 Pt reports she spilled some water on the floor next to her bed last night. Wiped it up with a towel which she left on the floor, and in the morning when she got out of bed she slipped on it and hit her right lower abdomen and hip on her nightstand. Initially put some ice on it, but noticed that she was getting a bruise that was rapidly growing. Went to an urgent care but they did not have imaging at that site and sent her to the ED for further evaluation. Denies any lightheadedness or dizziness. No numbness or tingling in lower extremities. No chest pain/pressure, palpitations. Denies shortness or breath or difficulty breathing. No nausea, vomiting, or diarrhea. In the ED pt's vitals stable and WNL. Labs were significant for H&H 8.8/24.8, creatinine 1.23, AST 43, ALT 51, alk-phos 123, and CPK 196. UA negative for UTI. CT?of head negative for acute intracranial findings. CT of cervical spine negative for acute findings. CT of chest showed soft tissue contusion over lateral aspect of right lower chest without rib fracture, pneumothorax, or pleural effusion. CT of abdomen and pelvis showed hematoma along subcutaneous fat of right abdomen as well as oblique musculature with evidence of active hemorrhage within hematoma. EKG demonstrated normal sinus rhythm without evidence of significant ST elevations or depressions. Pt was treated with fentanyl, oxycodone, IVF, and Kcentra. Pt will be admitted to the hospital for treatment and further observation of hematoma secondary to mechanical fall at home in a pt on anticoagulation and with active bleeding. Acute anemia secondary to hematoma from injury at home. Patient received 1 unit of packed red blood cells with stabilization of his hemoglobin and then and hematocrit. She was seen evaluated by General surgery with no recommendation for surgical procedure. CT showed hematoma of right abdomen and mild hemorrhage within the hematoma. Patient received Kcentra in the ED. Patient does have a history of atrial fibrillation on Eliquis which has been on hold. Plan is for patient to continue holding for 5 more days, check CBC in 3 days and follow up with primary care provider for day habilitation specialist who manages Eliquis description. Paroxysmal AFib Hold Eliquis for 5 days, check CBC in 3 days Continue diltiazem HTN Continue losartan Hypothyroidism Continue levothyroxine GERD Continue famotidine Mood disorder Continue mood stabilizers Time Attestation Discharge Coordination Time (in mins): 42 Quality: Safe Use of Opioids Does Pt have an Active Cancer Diagnosis on the Problem List?: No Quality: Stroke Does the patient have a stroke diagnosis?: No Physical Exam Vital Signs: Vital Signs: Last Vital Signs Temp 98.4 F 09/24/24 07:42 Pulse 73 09/24/24 07:42 Resp 16 09/24/24 07:42 BP 132/72 09/24/24 11:24 Pulse Ox 96 09/24/24 07:42 O2 Del Method Room Air 09/24/24 07:42 BMI result Body Mass Index 20.7 Appearing in no acute distress head is normocephalic atraumatic eyes pupils are PERRLA sclera is anicteric mouth throat mucous membranes are intact and moist neck is supple no lymphadenopathy, no JVD noted lung sounds are clear to auscultation heart regular rate rhythm, clear S1, S2 positive bowel sounds, abdomen is soft, nontender neuro patient is alert x3, no focal deficits DS: Data Data Completed and Pending Labs on day of discharge: Laboratory Results - last 24 hr 09/24/24 05:33 WBC 7.3 RBC 2.33 L Hgb 8.2 L Hct 23.2 L MCV 99.6 H MCH 35.2 H MCHC 35.3 H RDW 16.2 H Plt Count 197 MPV 10.6 Absolute Nucleated RBC 0.020 H Nucleated RBC % (auto) 0.3 H Sodium 138 Potassium 4.5 Chloride 106 Carbon Dioxide 26 Anion Gap 11 L BUN 33 H Creatinine 1.38 Estim Creat Clear Calc 36.0 Estimated GFR 38 Random Glucose 101 Calcium 8.4 Discharge Plan Discharge Anticipated Discharge Date/Time: 09/24/24 12:55 Patient Disposition: Home, Self-Care Discharge Diagnosis: Hematoma Referrals: Eva Monreal MD [Physician] - 1 Week Discharge Medications: New oxycodone 5 mg tablet 5 mg PO Q8H PRN (Reason: pain) Qty: 12 0RF Rx Instructions: Partial Fill upon patient request. Continued hydroxyzine HCl 25 mg tablet 25 mg PO Q8H PRN (Reason: itching) multivitamin Tablet 1 tab PO DAILY zinc acetate 25 mg (zinc) Capsule 25 mg PO DAILY acetaminophen 500 mg Tablet 500 mg PO Q6H PRN (Reason: Pain) levothyroxine 75 mcg tablet 75 mcg PO DAILY calcipotriene 0.005 % cream 1 appl topical DAILY PRN (Reason: carcinoma) Rx Instructions: with fluorouracil budesonide 3 mg capsule,delayed,extend.release 9 mg PO DAILY PRN (Reason: fecal incontinence/flare) lysine [L-Lysine] 500 mg Tablet 1,000 mg PO DAILY mirtazapine 7.5 mg tablet 7.5 mg PO BEDTIME duloxetine 30 mg capsule,delayed release(DR/EC) 60 mg PO DAILY Probiotic 10 billion cell Capsule 10,000 mmu cells PO DAILY vitamin D3-vitamin K2 125-90 mcg Capsule 1 cap PO DAILY losartan 25 mg tablet 25 mg PO DAILY estradiol 0.01 % (0.1 mg/gram) cream 1 appl vaginal 2XW Rx Instructions: APPLY TWICE A WEEK folic acid 1 mg tablet 1 mg PO DAILY famotidine 20 mg tablet 20 mg PO BID fluorouracil 5 % cream 1 appl topical DAILY PRN (Reason: carcinoma) Rx Instructions: with calcipotriene cevimeline 30 mg capsule 1 cap PO TID PRN (Reason: Dry Mouth) valacyclovir 500 mg tablet 500 mg PO BID fluoride (sodium) [DentaGel] 1.1 % gel 1 appl dental DAILY furosemide 20 mg tablet 20 mg PO DAILY oxycodone 5 mg tablet 10 mg PO Q4H PRN (Reason: Pain) gabapentin 300 mg capsule 600 mg PO TID diltiazem HCl 240 mg capsule,extended release 24hr 240 mg PO DAILY Jardiance 10 mg tablet 10 mg PO DAILY lorazepam 0.5 mg tablet 0.5 mg PO DAILY PRN (Reason: anxiety) Qty: 30 2RF Held Eliquis 2.5 mg tablet 2.5 mg PO BID Hold Instructions: Resume on 09/29/24. Discharge Orders: Discharge Order (Routine); Ordered 09/24/24 Ordered By: Es Black Diet: Advance to usual diet Activity on Discharge: As tolerated Stand Alone Forms: Patient Portal Discharge page Print Language: Belarusian Other Ambulatory Orders: Complete Blood Count no Diff (Routine) Timeframe: 3 Days Facility: [facility] - Location: Laboratory Ordered By: Es Black Care Plan Goals: Hold Eliquis for 5 days Health Concerns: Hematoma Plan of Treatment: Schedule an appointment with your primary care provider Take all medications as prescribed Assessment: Summary
--- NOTE | 2024-09-24 12:40 | MHC.CM.PN ---
Addendum entered by Anabella Juarez 09/24/24 12:44: Patient is discharged today to home self care. She will resume O/P P.T. with AT. Original Note: IMM 09/23/24 Patient has been evaluated by PT. She has been ambulating in the [facility] independently. She declines Home Health services for PT. She will resume outpatient therapy at [facility]. She has arranged for transportation home.
[2024-09-24] MEDS: Acetaminophen 325 MG TABLET 650 MG PO (14:29)
--- NOTE | 2024-10-08 16:47 | P.CDIM_ITS ---
PROVIDER RESPONSE TEXT: To clarify, the appropriate diagnosis supported by the clinical indicators: Hematoma/hemorrhage complicated by the use of anticoagulant QUERY TEXT: PHYSICIAN'S DOCUMENTATION REQUEST Date of Query: 10/04/2024 07:46 AM EST Patient Name: John Lin Admit Date: 09/23/2024 Dear Es Black ATTENUATOR, A review of the medical record indicates additional documentation may be needed. Please review below and update the documentation accordingly. Clinical Indicators: The following diagnoses or signs and symptoms were noted in the patient record: Patient admitted for right lower abdominal hematoma secondary to mechanical fall at home in a pat on anticoagulation with active bleeding Patient received Kcentra in the ED. Patient does have a history of atrial fibrillation on Eliquis whi ch has been on hold. Based on the above, could you clarify the appropriate diagnosis, if significant, that supports the ab ove abnormalities and additional evaluation, monitoring, and/or treatment rendered: Hematoma/hemorrhage complicated by the use of anticoagulant Hematoma/hemorrhage not complicated by the use of anticoagulant Other (explain) Clinically unable to determine (explain) Thank you, Annel Mclaughlin RN Use of terms such as suspected, likely, concern for, or probable (associated with a specific diagnosi s that is being evaluated, monitored, or treated as if it exists) are acceptable and can be coded in the inpatient se tting, when documented at the time of discharge. Please use your independent medical judgment in providing your response. THIS QUERY IS PART OF THE PERMANENT MEDICAL RECORD
== END 2024-09-24 15:24 | disposition home or self-care (01) | DRG 605 ==
LOC: HO.ED 20:15 → HO.EDOVER 20:30 → HO.S3 09-23 01:13
PROVIDERS: Emergency Medicine; Admitting Provider Student in an Organized Health Care Education/Training Program; Emergency Provider Internal Medicine; PCP Internal Medicine; Visit Provider Nurse Practitioner Acute Care
DX: S30.1XXA Contusion of abdominal wall, initial encounter (principal); C92.01 Acute myeloblastic leukemia, in remission; D62 Acute posthemorrhagic anemia; Z94.84 Stem cells transplant status; D68.32 Hemorrhagic disorder due to extrinsic circulating anticoagulants; T45.515A Adverse effect of anticoagulants, initial encounter; W19.XXXA Unspecified fall, initial encounter; E03.9 Hypothyroidism, unspecified; K21.9 Gastro-esophageal reflux disease without esophagitis; Z79.01 Long term (current) use of anticoagulants; Z79.890 Hormone replacement therapy; Z79.899 Other long term (current) drug therapy
CPT/HCPCS: 36415; 70450; 71260; 72125; 74177; 80048; 80076; 81003; 82550; 83735; 85025; 85027; 85610; 86850; 86900; 86901; 86923; 93005; 97161; 99285; J2270; J3010; J7120; J7168; P9016; Q9967

== ENCOUNTER → 2024-09-22 15:07 | Outpatient (BNV) | payer MEDICARE, MEDICAID, SELFPAY | PROVIDERS: Admitting Provider Student in an Organized Health Care Education/Training Program; Emergency Provider Internal Medicine; Visit Provider Internal Medicine Cardiovascular Disease | DX: R94.31 Abnormal electrocardiogram [ECG] [EKG] (principal) | CPT/HCPCS: 93010 ==

== ENCOUNTER → 2024-09-22 15:07 | Outpatient (BNV) | payer MEDICARE, MEDICAID, SELFPAY | PROVIDERS: Emergency Provider Emergency Medicine; Visit Provider Radiology Diagnostic Radiology | DX: R10.11 Right upper quadrant pain (principal); S09.90XA Unspecified injury of head, initial encounter | CPT/HCPCS: 70450; 71260; 72125; 74177 ==

== ENCOUNTER → 2024-09-22 20:23 | Outpatient (BNV) | payer MEDICARE, MEDICAID, SELFPAY | PROVIDERS: Admitting Provider Student in an Organized Health Care Education/Training Program; Emergency Provider Internal Medicine; Visit Provider Student in an Organized Health Care Education/Training Program | DX: S30.1XXA Contusion of abdominal wall, initial encounter (principal) | CPT/HCPCS: 99223; 99232; 99239 ==

== ENCOUNTER → 2024-09-22 20:23 | Outpatient (BNV) | payer MEDICARE, MEDICAID, SELFPAY | PROVIDERS: Admitting Provider Student in an Organized Health Care Education/Training Program; Emergency Provider Internal Medicine; Visit Provider Surgery | DX: S30.1XXA Contusion of abdominal wall, initial encounter (principal) | CPT/HCPCS: 99222 ==

== ENCOUNTER 2024-09-27 15:42 | Outpatient (AMB) | payer MEDICARE, MEDICAID, SELFPAY ==
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
== END 2024-09-27 15:43 | disposition home or self-care (01) ==
LOC: HO.HOP 15:42
PROVIDERS: PCP Internal Medicine; Visit Provider Clinical Nurse Specialist Psychiatric/Mental Health
DX: F42.2 Mixed obsessional thoughts and acts (principal)
CPT/HCPCS: 99214

== ENCOUNTER → 2024-09-27 15:42 | Outpatient (BNVA) | payer MEDICARE, MEDICAID, SELFPAY | PROVIDERS: PCP Internal Medicine; Visit Provider Clinical Nurse Specialist Psychiatric/Mental Health ==

== ENCOUNTER 2024-10-19 16:49 | Emergency (ER) | payer MEDICARE, MEDICAID, SELFPAY ==
--- NOTE | ~2024-10-19 | CT_ITS ---
CLINICAL HISTORY: fall with head strike, on thinners CT cervical spine without contrast Comparison: CT - CT CERVICAL SPINE WO IV CON - 09/22/24 16:24 EST Findings: Straightening of the usual cervical lordosis. Degenerative anterolisthesis of C4 on C5 measuring 3 mm. Otherwise normal alignment. Vertebral body heights maintained. Diffuse moderate degenerative changes worst at C3-C4, C4-C5, and C5-C6. Prevertebral and paraspinous soft tissues are within normal limits. IMPRESSION: No acute findings. This document has been electronically signed by: Mike Patino MD on 10/19/2024 19:23:36
--- NOTE | ~2024-10-19 | XR_ITS ---
CLINICAL HISTORY: fall, tenderness 3 views sacrum and coccyx Comparison: None Findings Poor evaluation of the sacrum due to body habitus and overlying stool contents. No gross evidence of fracture. Normal coccygeal alignment. IMPRESSION: Limited sacral evaluation due to overlying stool contents and body habitus. No gross evidence of fracture. Low threshold for CT exam would be recommended if there is persistent clinical concern for fracture. This document has been electronically signed by: Mike Patino MD on 10/19/2024 20:19:24
--- NOTE | ~2024-10-19 | CT_ITS ---
CLINICAL HISTORY: fall with head strike, on thinners CT head without contrast COMPARISON: CT - CT HEAD/BRAIN WO IV CON - 09/22/24 16:24 EST FINDINGS: Global cerebral volume loss and chronic microvascular ischemic changes. No acute intracranial hemorrhage, extra-axial fluid collection, mass effect, or midline shift. Ventricular system and basilar cisterns are patent. Chavarria-white matter differentiation is maintained. No gross orbital abnormality. No suspicious or acute bone lesion. Mastoid air cells and paranasal sinuses are predominantly clear. IMPRESSION: 1. No acute intracranial abnormality. 2. Global cerebral volume loss and chronic microvascular ischemic changes. This document has been electronically signed by: Mike Patino MD on 10/19/2024 19:23:56
--- NOTE | ~2024-10-19 | XR_ITS ---
CLINICAL HISTORY: fall, tenderness 4 view right knee Comparison: None Findings: No fractures or dislocations. No significant loss of joint space, osteophytes, or erosions. No joint effusion. No radiopaque foreign body. IMPRESSION: 1. No acute findings. This document has been electronically signed by: Mike Patino MD on 10/19/2024 20:18:23
[2024-10-19 17:09] VITALS: BP 173/87; BP 176/82; PULSE 80; PULSE 97; RESP 18; TEMP 36.9; O2SAT 94; O2SAT 96; BMI 19.1
--- NOTE | 2024-10-19 17:10 | ED.GENADULT ---
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 Patient had an ablation for her AFib at [facility] yesterday and was discharged this morning. She had held her Eliquis for a day and a half prior to the procedure but was given 2.5 mg this morning prior to discharge. She then went to lunch with a friend and when he was bringing her home, she lost her balance on an outdoor steps and fell backwards into his vehicle. Patient and friend confirm that patient dented the vehicle with her head. Patient and friend deny any loss of consciousness. Patient complains of moderate headache, denies any visual changes. Denies nausea or vomiting. Denies dizziness or lightheadedness. Arrives in c-collar from EMS. MD complaint: head injury after fall Onset (ago): hour(s) Related Data Home Medications ?Medication ?Instructions ?Recorded ?Confirmed gabapentin 300 mg capsule 600 mg PO TID 10/13/23 09/27/24 oxycodone 5 mg tablet 10 mg PO Q4H PRN Pain 10/13/23 09/27/24 estradiol 0.01% (0.1 mg/gram) 1 appl vaginal 2XW 10/28/23 09/27/24 vaginal cream famotidine 20 mg tablet 20 mg PO BID 10/28/23 09/27/24 folic acid 1 mg tablet 1 mg PO DAILY 10/28/23 09/27/24 losartan 25 mg tablet 25 mg PO DAILY 10/28/23 09/27/24 cevimeline 30 mg capsule 1 cap PO TID PRN Dry Mouth 12/14/23 09/27/24 fluorouracil 5 % topical cream 1 appl topical DAILY PRN carcinoma 12/14/23 09/27/24 fluoride (sodium) 1.1 % dental gel 1 appl dental DAILY 02/20/24 09/27/24 (DentaGel) valacyclovir 500 mg tablet 500 mg PO BID 02/20/24 09/27/24 furosemide 20 mg tablet 20 mg PO DAILY 05/22/24 09/27/24 hydroxyzine HCl 25 mg tablet 25 mg PO Q8H PRN itching 07/13/24 09/27/24 apixaban 2.5 mg tablet (Eliquis) 2.5 mg PO BID 08/10/24 09/27/24 diltiazem HCl 240 mg 240 mg PO DAILY 08/10/24 09/27/24 capsule,extended release 24 hr empagliflozin 10 mg tablet 10 mg PO DAILY 08/10/24 09/27/24 (Jardiance) Lactobacillus acidophilus 10 10,000 mmu cells PO DAILY 09/23/24 09/27/24 billion cell capsule (Probiotic) acetaminophen 500 mg tablet 500 mg PO Q6H PRN Pain 09/23/24 09/27/24 budesonide 3 mg 9 mg PO DAILY PRN fecal 09/23/24 09/27/24 capsule,delayed,extended release incontinence/flare calcipotriene 0.005 % topical cream 1 appl topical DAILY PRN carcinoma 09/23/24 09/27/24 duloxetine 30 mg capsule,delayed 60 mg PO DAILY 09/23/24 09/27/24 release levothyroxine 75 mcg tablet 75 mcg PO DAILY 09/23/24 09/27/24 lysine 500 mg tablet (L-Lysine) 1,000 mg PO DAILY 09/23/24 09/27/24 mirtazapine 7.5 mg tablet 7.5 mg PO BEDTIME 09/23/24 09/27/24 multivitamin 1 tab PO DAILY 09/23/24 09/27/24 vitamin D3 125 mcg (5,000 1 cap PO DAILY 09/23/24 09/27/24 unit)-vitamin K2 90 mcg capsule zinc acetate 25 mg (zinc) capsule 25 mg PO DAILY 09/23/24 09/27/24 Previous Rx's ?Medication ?Instructions ?Recorded lorazepam 0.5 mg tablet 0.5 mg PO DAILY PRN anxiety #30 08/10/24 tabs oxycodone 5 mg tablet 5 mg PO Q8H PRN pain #12 tabs 09/24/24 lidocaine 5 % topical patch 1 patch topical DAILY #15 ea 10/19/24 ondansetron 4 mg disintegrating 4 mg PO Q8H PRN nausea and 10/19/24 tablet vomiting #10 tabs Allergies Allergy/AdvReac Type Severity Reaction Status Date / Time vancomycin [VANCOMYCIN] Allergy Mild HIVES Verified 10/19/24 17:11 imipenem [IMIPENEM] Allergy Unknown HIVES Verified 09/22/24 15:10 Penicillins [PENICILLINS] Allergy Unknown UNKNOWN Verified 09/22/24 15:10 lisinopril [LISINOPRIL] AdvReac Unknown COUGH Verified 09/22/24 15:10 Review of Systems Review of Systems: As per HPI Yes all other systems are reviewed and are negative Constitutional: Constitutional: Reports as per HPI PMFSH Past Medical History Medical History (Updated 10/19/24 @ 20:30 by Siomara Triplett NP) OCD (obsessive compulsive disorder) Left shoulder pain PAF (paroxysmal atrial fibrillation) Major depressive disorder, recurrent, moderate Dysthymia Post herpetic neuralgia Social History Social History Household Members: None Housing: House Do you presently have visiting nurse or other home services: No Alcohol intake: current Alcohol intake frequency: holidays/special occasions only Patient Tobacco Use Status: Never used Tobacco Smoked in Last 30 Days: No Use of substances other than those prescribed or required for medical reasons: Yes Substance Use Type: Marijuana Advance Directives: No Advance Directives Information Provided: No service: No Physical Exam ED Vital Signs: Vital Signs - 24 hr 10/19/24 17:09 10/19/24 19:51 Temperature 98.5 F 98.2 F Pulse Rate 97 79 Respiratory Rate 18 20 Blood Pressure 173/87 H 143/73 H Pulse Oximetry 94 96 Oxygen Delivery Method Room Air Room Air BMI result Body Mass Index 19.1 Vital signs have been reviewed and appear to be correct. Blood pressure elevated. Heart rate normal. Respiratory rate normal. Temperature normal. Oxygen saturation normal. Const General: cooperative, healthy appearing and no acute distress Orientation/consciousness: oriented to person, oriented to place, oriented to time and patient oriented x3 Limitations: no limitations HENMT Head: Yes normocephalic and Yes contusion (occipital region) Ears: external ears normal, TM's normal bilaterally and EAC's normal General nose exam: Normal external nose present and Normal nasal mucous membranes and turbinates present Face and sinus: Yes face symmetric Mouth: oropharynx normal and moist mucous membranes Throat: Yes uvula midline Eyes Pupils: Equal, round and reactive pupils present EOM: EOMs intact bilaterally Neck Neck: Yes normal visual inspection and Yes trachea midline Chest Chest palpation & inspection: normal inspection of the chest and normal palpation of entire chest wall Resp Effort & Inspection: normal respiratory effort and able to speak in complete sentences Auscultation: clear to auscultation bilaterally Cardio Rate: regular rate Rhythm: regular rhythm Heart sounds: S1 normal heart sound present and S2 normal heart sound present GI Palpation (GI): Soft to palpation and nontender Auscultation: normoactive bowel sounds General: Yes no CVA tenderness Back/Spine/Pelvis Back: no CVA tenderness Cervical Spine: collar present Pelvis: buttock tenderness on the left Skin General skin exam: elasticity normal and turgor normal Neuro General: oriented to person, oriented to place, oriented to time, patient oriented x3, moves all extremities, no focal motor deficits and CN's II-XI intact bilaterally Cranial nerves: Yes Equal, round and reactive pupils present Cognition (Neuro): normal cognition Extrem General: Yes full ROM, Yes no pedal edema and Yes no calf tenderness Right lower extremity: knee Details: normal to inspection, tenderness Location: of the medial joint line, normal ROM and knee ligament exam normal Psych Mental Status: mental status grossly normal Affect: normal affect Thought process: Normal thought process present Medications Administered Discontinued Medications Generic Name Dose Route Start Last Admin Trade Name Freq PRN Reason Stop Dose Admin Acetaminophen 650 mg 10/19/24 17:36 10/19/24 18:07 Acetaminophen 325 Mg Tablet PO 10/19/24 17:37 650 mg ONCE ONE Administration Medical Decision Making Medical Decision Making [facility] Narrative: Patient is a 69-year-old female with history of atrial fibrillation on Eliquis, AML status post stem cell transplant 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 On exam patient is awake, A+Ox3, VS WNL, afebrile, normal neurological exam without focal deficits, physical exam findings as above. Given reported symptoms and physical exam findings, initial differential includes but is not limited to ICH, skull or cervical vertebral fracture or subluxation, sacral/coccyx fracture or contusions, right knee strain, sprain, fracture. Patient requesting Tylenol for headache, took oxycodone [employer] but states that this typically does not help her headaches. CT head and c-spine notable for no evidence of ICH, skull or cervical vertebral fracture or subluxation. My interpretation is in agreement with the radiologist's interpretation. C-collar removed. No evidence of acute fracture to sacrum/coccyx or right knee. Results discussed with patient and all questions answered. Will send prescriptions for topical lidocaine patches and Zofran for nausea. Advised patient to follow-up with PCP this week. Return precautions discussed at bedside with patient and friend. Patient verbalized understanding of and agreement with plan. Differential Diagnosis Differential Diagnoses: The differential diagnosis associated with the presentation includes As per [facility] Admission/Observation Consideration of admission/observation: Escalation of care including admission/observation considered Patient would have been admitted to the hospital had their work up had any findings where hospital admission was appropriate and their clinical presentation warranted hospital admission. Independent Interpretation I performed an independent interpretation of an: Plain X-Ray and CT Scan Interpretation: CT head and c-spine notable for no evidence of ICH, skull or cervical vertebral fracture or subluxation. Sacral/coccyx and knee xrays without evience of acute fracture Radiology Impression Discussion of test interpretation with radiology: I have reviewed the radiologist's reading. Radiologist Impression: CT cervical spine without contrast Comparison: CT - CT CERVICAL SPINE WO IV CON - 09/22/24 16:24 EST Findings: Straightening of the usual cervical lordosis. Degenerative anterolisthesis of C4 on C5 measuring 3 mm. Otherwise normal alignment. Vertebral body heights maintained. Diffuse moderate degenerative changes worst at C3-C4, C4-C5, and C5-C6. Prevertebral and paraspinous soft tissues are within normal limits. IMPRESSION: No acute findings. CT head without contrast COMPARISON: CT - CT HEAD/BRAIN WO IV CON - 09/22/24 16:24 EST FINDINGS: Global cerebral volume loss and chronic microvascular ischemic changes. No acute intracranial hemorrhage, extra-axial fluid collection, mass effect, or midline shift. Ventricular system and basilar cisterns are patent. Chavarria-white matter differentiation is maintained. No gross orbital abnormality. No suspicious or acute bone lesion. Mastoid air cells and paranasal sinuses are predominantly clear. IMPRESSION: 1. No acute intracranial abnormality. 2. Global cerebral volume loss and chronic microvascular ischemic changes. Independent Historian Clinical information obtained from an independent historian. History obtained from or confirmed by: Friend External Record Review External record reviewed: Inpatient record, Office record and Outpatient record Prescription Management I considered prescription management with: Pain Medication and Other Discharge Plan Discharge Clinical Impression: Contusion of head, Fall Patient Disposition: Home, Self-Care Instructions: Head Injury (ED), Contusion in Adults (ED), Ice Pack Application (ED), Fall Prevention (ED), Hematoma (ED) Additional Instructions: You have been evaluated in the emergency department today for injuries sustained after a fall. Your CT scans did not show signs of bleeding or fractures in your head, neck, back or knee. We recommend you take Tylenol 650 mg every 6 hours as needed for pain. You are being prescribed topical lidocaine patches which you can wear for up to 12 hours in a 24 hour period. Do not apply heat directly over the patches. We recommend that you apply cool compresses to the back of your head for 10-15 minutes at a time several times daily. You are being prescribed ondansetron which is a medication for nausea you can take every 8 hours as needed. Please schedule an appointment with for follow-up with your primary care provider as soon as possible. Return to the emergency department if you experience worsening or uncontrolled pain, vision changes, recurrent vomiting, difficulty with normal activities, abnormal behavior, difficulty walking, numbness, weakness, or any other concerning symptoms. Prescriptions: New lidocaine 5 % adhesive patch,medicated 1 patch topical DAILY Qty: 15 0RF Rx Instructions: leave on most painful area for up to 12 hrs ondansetron 4 mg tablet,disintegrating 4 mg PO Q8H PRN (Reason: nausea and vomiting) Qty: 10 0RF No Action hydroxyzine HCl 25 mg tablet 25 mg PO Q8H PRN (Reason: itching) multivitamin Tablet 1 tab PO DAILY zinc acetate 25 mg (zinc) Capsule 25 mg PO DAILY acetaminophen 500 mg Tablet 500 mg PO Q6H PRN (Reason: Pain) levothyroxine 75 mcg tablet 75 mcg PO DAILY calcipotriene 0.005 % cream 1 appl topical DAILY PRN (Reason: carcinoma) Rx Instructions: with fluorouracil budesonide 3 mg capsule,delayed,extend.release 9 mg PO DAILY PRN (Reason: fecal incontinence/flare) lysine [L-Lysine] 500 mg Tablet 1,000 mg PO DAILY mirtazapine 7.5 mg tablet 7.5 mg PO BEDTIME duloxetine 30 mg capsule,delayed release(DR/EC) 60 mg PO DAILY Probiotic 10 billion cell Capsule 10,000 mmu cells PO DAILY vitamin D3-vitamin K2 125-90 mcg Capsule 1 cap PO DAILY oxycodone 5 mg tablet 5 mg PO Q8H PRN (Reason: pain) Qty: 12 0RF Rx Instructions: Partial Fill upon patient request. losartan 25 mg tablet 25 mg PO DAILY estradiol 0.01 % (0.1 mg/gram) cream 1 appl vaginal 2XW Rx Instructions: APPLY TWICE A WEEK folic acid 1 mg tablet 1 mg PO DAILY famotidine 20 mg tablet 20 mg PO BID fluorouracil 5 % cream 1 appl topical DAILY PRN (Reason: carcinoma) Rx Instructions: with calcipotriene cevimeline 30 mg capsule 1 cap PO TID PRN (Reason: Dry Mouth) valacyclovir 500 mg tablet 500 mg PO BID fluoride (sodium) [DentaGel] 1.1 % gel 1 appl dental DAILY furosemide 20 mg tablet 20 mg PO DAILY oxycodone 5 mg tablet 10 mg PO Q4H PRN (Reason: Pain) gabapentin 300 mg capsule 600 mg PO TID diltiazem HCl 240 mg capsule,extended release 24hr 240 mg PO DAILY Jardiance 10 mg tablet 10 mg PO DAILY Eliquis 2.5 mg tablet 2.5 mg PO BID lorazepam 0.5 mg tablet 0.5 mg PO DAILY PRN (Reason: anxiety) Qty: 30 2RF Print Language: Cymro
--- NOTE | 2024-10-19 17:35 | PC.NURSE ---
pt arrives in c-collar. she had a fall with HS , no LOC. takes 2.5 eliquis which she restarted today after an ablation for afib. she was returning home when she slipped and fell hitting her head on the door of the car. she has a egg to the back of her head - reports right knee pain, left shoulder pain (which she states is chronic).
--- OUTSIDE RECORDS SUMMARY | 2024-10-19 17:45 | XMS_ITS | Continuity of Care Document ---
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 --September 13, 2024 Botox left upper extremity side effects: Significant shoulder abduction weakness, mild to moderate shoulder external rotation and neck extension weakness. No significant benefit of the Botox intradermal injections. Medications per patient: Diltiazem, furosemide, acetaminophen as needed, amiodarone, Apixaban 5 mg twice a day, probiotic formula, budesonide, skin cream, cevimeline, eyedrops, Lexapro 20 mg; famotidine 20 mg daily, folate 1 mg daily, gabapentin 600 mg three times a day, topical lidocaine, hydroxyzine 3 times a day for postherpetic itch, lorazepam as needed for anxiety, 1 mg up to four times a day, losartan 25 mg, mirtazapine 7.5 mg nightly, calcium, vitamin D3 and K2, oxycodone 10 mg as needed twice a day for pain, valacyclovir every 12 hours, niacinamide --October 16, 2024 duloxetine 90 mg every morning without side effects, with benefit, although partially waning after the first week. >>>>>>>>>>>>Februa 2024 I suggested increase to duloxetine 120 mg daily? w ith continued attention to her blood pressure. I also suggest breaking it into two doses, the first dose of 60 mg at her waking time as before, the second dose ~2 PM, as there might be a wearing off going off. She agrees. In reserve is adjunct medication from a different category. Anticonvulsives lamotrigine and lacosamide have class I associated data for benefit for certain types of neuropathic pain. She agrees to tell her psychologist about her changes of medication: Lexapro to duloxetine. >>>>>>>>>>>>Connor y 2024 The weakness is a side effect of the Botox. It will go away but it may take up to 3 months or maybe even 4 months. She understands. Physical therapy? mauro moody she was in for other reasons? g ave her exercises. I showed her some stretching exercises of internal and external shoulder rotation as well as doing arm circles to minimize the chance of frozen shoulder. He is not good at doing home exercises, she adds. I described that they are important to avoid frozen shoulder and she understood. Meanwhile she wishes held still for her intense itching and stabbing left upper quadrant discomfort. Her Lexapro is not helping as much as the duloxetine was for her depression, she thinks. Perhaps she is just more depressed because the Botox did not help for her itching and stabbing pain. However she is not sure that the reason she stopped the duloxetine, not feeling right, is gone. Perhaps that it was not a side effect of duloxetine. Her duloxetine maximum dosage, 60 mg, was submaximal for target dose to help with neuropathic pain. I suggested reversing her recent titration and going up higher on the duloxetine than previously, to look for benefit for the itching and stabbing pain, but at the same time watching out for any intense not feeling right that might indeed be a side effect for her from higher doses of duloxetine. She would like to do this. >>>>>>>>>>>>[facility] 2023 I can think of two possible directions for symptomatic relief that have not been tried: Intradermal Botox injections and medications for neuropathic pain including lamotrigine, pregabalin and lacosamide. SNRI competitors to duloxetine (which has caused side effect) could also be considered. Amitriptyline is contraindicated for an individual of her age because of potential cognitive slowing. She is wary of further trial of oral medication as she is on so many medications. She might be interested in intradermal Botox injections. She wants to research this and run these by her healthcare providers at the [facility]. In this context, we decided that she will call if she is interested in Botox in which case we will attempt preauthorization. She will also call if she is not interested in Botox but wishes to discuss the medication direction further. >>>>>>>>>>>> PLAN John Lin October 16, 2024 Increase duloxetine which may help your itching and stabbing pain, and your mood: duloxetine 90 mg every morning -> 60 mg 7AM/2PM duloxetine may occasionally cause side effects of abdominal discomfort of diarrhea. It may also cause a feeling of energy pleasant or mildly unpleasant with tightness. These side effects are usually mild and go away. The feeling of energy often feels good. Duloxetine often helps mood but can rarely make mood worse. If side effects are mild, wait a few days to see if they subside. If side effects are not mild or do not subside, stop the medicine. Duloxetine 90 mg could cause increase in your blood pressure. Please monitor your blood pressure to make sure it stays normal. Watch closely for any return of any intense not feeling right as you increase duloxetine, and if this happens please contact our office Follow-up 1 month. Florentin Hooper MD PhD [facility] mrradha Not available 10/16/2024 18:02:20 Plan of Treatment Reminders Order Date Submit Date Provider Last Modified By Organization Details Last Modified Time Details Appointments BOT[facility] 2024 03:00P Jennifer Hooper MD PhD Not available Not available Not available Lab None recorded. Referral None recorded. Procedures None recorded. Surgeries None recorded. Imaging None recorded. Medication Orders duloxetin e 60 mg capsule,d elayed release 2024 025 [facility]acy #[id number], [address] [place], [address], 10/16/2024 17:22:59 Patient TargetsNo targets recorded. Patient Instructions Encounter Date Encounter Id Patient Instructions Last Modified By Organization Details Last Modified Time 10/16/2024 [id number] Discussion acros s issues of diagnoses and management and same day associated chart review and management greater than 50% greater than 40 minutes mrossen Not available 10/16/2024 17:10:33 Reason for Referral None Reported. Procedures Surgical History Date Name Laterality Status Provider Name and Address Organization Details Recorded Time 4 botulinum injection completed Florentin Hooper MD [address] [place] [address] [place], [address], [facility] 08/22/2024 17:41:31 Imaging Results None recorded. Procedure Notes None recorded. Medical Equipment None Reported. Allergies No known drug allergies Medications Name Sig Start Date Stop Date Status Note LastModified by Organization Details LastModified Time furosemide 40 mg tablet TAKE 1 TABLET BY MOUTH 1 TIME EACH DAY. active Not Available Not Available No t Available fluconazole 100 mg tablet TAKE 1 TAB BY MOUTH DAILY FOR 10 DAYS, THEN 1 TAB ONCE WEEKLY FOR 90 DAYS. active Not Available Not Available No t Available pilocarpine 5 mg tablet TAKE 1 TABLET BY MOUTH THREE TIMES A DAY active Not Available Not Available No t Available nystatin 100,000 unit/mL oral suspension SWISH AND SPIT WITH 5 ML 3 (THREE) TIMES A DAY. active Not Available Not Available No t Available clindamycin HCl 300 mg capsule active Not Available Not Available Not Available diltiazem CD 180 mg capsule,ext ended release 24 hr TAKE 1 CAPSULE BY MOUTH 1 TIME EACH DAY. active Not Available Not Available No t Available Lidocaine Viscous 2 % mucosal solution USE DIRECTED -USE 5 ML IN THE MOUTH OR THROAT 3 (THREE) TIMES A DAY. active Not Available Not Available No t Available amiodarone 200 mg tablet TAKE 1 TABLET BY MOUTH TWICE A DAY FOR 2 DAYS, THEN 1 TABLET DAILY active Not Available Not Available No t Available diltiazem CD 240 mg capsule,ext ended release 24 hr TAKE 1 CAPSULE BY MOUTH EVERY DAY active Not Available Not Available No t Available fluorouraci l 5 % topical cream APPLY TO THE FOREHEAD, LEFT CHEEK AND LOWER LEGS TWICE DAILY FOR 2 WEEKS active Not Available Not Available No t Available metoprolol succinate ER 100 mg tablet,exte nded release 24 hr TAKE 1 TABLET BY MOUTH EVERY DAY active Not Available Not Available No t Available naproxen 250 mg tablet TAKE 1 TABLET BY MOUTH 2 TIMES A DAY WITH MEALS. active Not Available Not Available No t Available valacyclovi r 500 mg tablet TAKE 1 TABLET BY MOUTH TWICE A DAY active Not Available Not Available No t Available levothyroxi ne 25 mcg tablet TAKE 1 TABLET BY MOUTH EVERY MORNING active Not Available Not Available No t Available clobetasol 0.05 % topical gel APPLY TOPICALLY TO THE AFFECTED AREA TWICE DAILY. active Not Available Not Available No t Available hydrocortis one acetate 25 mg rectal suppository INSERT 1 SUPPOSITO RY RECTALLY (25 MG) TWICE A DAY FOR 7 DAYS active Not Available Not Available No t Available levothyroxi ne 75 mcg tablet active Not Available Not Available Not Available dexamethaso ne 0.5 mg/5 mL oral solution SWISH AND HOLD 5 ML IN MOUTH FOR 4-5 MIN, THEN SPIT, 3 TIMES A DAY. NO FOOD/DRIN K FOR 20 MIN AFTER active Not Available Not Available No t Available ciclopirox 8 % topical solution APPLY EXTERNALL Y TO TOENAIL ONCE A DAY FOR 30 DAYS active Not Available Not Available No t Available famotidine 20 mg tablet TAKE 1 TABLET BY MOUTH TWICE A DAY active Not Available Not Available No t Available lorazepam 0.5 mg tablet TAKE 1 TABLET ORALLY DAILY NEEDED FOR ANXIETY active Not Available Not Available No t Available doxycycline monohydrate 100 mg capsule TAKE 2 CAPSULES BY MOUTH ONCE FOR 1 DOSE. active Not Available Not Available No t Available levothyroxi ne 50 mcg tablet TAKE 1 TABLET BY ORAL ROUTE ONCE DAILY FOR 90 DAYS active Not Available Not Available No t Available calcipotrie ne 0.005 % topical cream PLEASE SEE ATTACHED FOR DETAILED DIRECTION S active Not Available Not Available No t Available cevimeline 30 mg capsule TAKE 1 CAPSULE BY MOUTH 3 TIMES A DAY. active Not Available Not Available No t Available losartan 25 mg tablet TAKE 1 TABLET BY MOUTH EVERY DAY active Not Available Not Available No t Available nystatin-tr iamcinolone 100,000 unit/g-0.1 % topical cream APPLY TOPICALLY 4 TIMES A DAY. active Not Available Not Available No t Available gabapentin 300 mg capsule TAKE 2 CAPSULES BY MOUTH 3 TIMES A DAY active Not Available Not Available No t Available folic acid 1 mg tablet TAKE 1 TABLET BY MOUTH EVERY DAY active Not Available Not Available No t Available hydroxyzine HCl 25 mg tablet TAKE 1 TABLET BY MOUTH EVERY 8 HOURS NEEDED FOR ITCHING active Not Available Not Available No t Available mupirocin 2 % topical ointment APPLY TOPICALLY 2 (TWO) TIMES A DAY. APPLY TO CORNERS OF THE MOUTH active Not Available Not Available No t Available furosemide 20 mg tablet TAKE 1 TABLET BY MOUTH EVERY DAY active Not Available Not Available No t Available clobetasol 0.05 % topical ointment APPLY TO THE LEG TWICE DAILY FOR 1-2 WEEKS active Not Available Not Available No t Available budesonide DR - ER 3 mg capsule,del ayed,extend ed release TAKE 3 CAPSULES (9 MG TOTAL) BY MOUTH DAILY. active Not Available Not Available No t Available estradiol 0.01% (0.1 mg/gram) vaginal cream APPLY 1 GRAM VAGINALLY 2 TIMES PER WEEK active Not Available Not Available No t Available levofloxaci n 750 mg tablet TAKE 1 TABLET (750 MG TOTAL) BY MOUTH EVERY OTHER DAY FOR 6 DAYS. active Not Available Not Available No t Available clobetasol 0.05 % scalp solution APPLY TO AFFECTED AREA TWICE A DAY FOR 14 DAYS active Not Available Not Available No t Available doxepin 5 % topical cream APPLY TOPICALLY 3 (THREE) TIMES A DAY. APPLY TO SHOULDER NEEDED FOR ITCHING active Not Available Not Available No t Available levothyroxi ne 112 mcg tablet TAKE 1 TABLET BY MOUTH EVERY DAY FOR 30 DAYS active Not Available Not Available No t Available oxycodone 5 mg tablet TAKE 1 TABLET BY MOUTH EVERY 8 HOURS NEEDED FOR PAIN active Not Available Not Available No t Available DentaGel 1.1 % USE DIRECTED IN THE MOUTH OR THROAT NIGHTLY AT BEDTIME. active Not Available Not Available No t Available escitalopra m 10 mg tablet TAKE 1 TABLET BY MOUTH EVERY DAY active Not Available Not Available No t Available escitalopra m 20 mg tablet TAKE 1 TABLET (20 MG) ORALLY DAILY active Not Available Not Available No t Available Restasis 0.05 % eye drops in a dropperette INSTILL 1 DROP INTO BOTH EYES TWICE A DAY active Not Available Not Available No t Available cholestyram ine (with sugar) 4 gram powder for susp in a packet TAKE 1 PACKET DISSOLVED IN WATER THREE TIMES A DAY NEEDED active Not Available Not Available No t Available escitalopra m 5 mg tablet TAKE 1 TABLET BY MOUTH EVERY DAY active Not Available Not Available No t Available mirtazapine 7.5 mg tablet TAKE ONE TABLET (7.5 MG) ORALLY AT BEDTIME active Not Available Not Available No t Available duloxetine 20 mg capsule,del ayed release TAKE 2 CAPSULES BY MOUTH DAILY 09/17 completed Not Available Not Available Not Available duloxetine 30 mg capsule,del ayed release PLEASE SEE ATTACHED FOR DETAILED DIRECTION S active Not Available Not Available No t Available duloxetine 60 mg capsule,del ayed release 1 CAP 7am, 1 CAP 2PM 2024 active Not Available Not Available Not Avai lable pregabalin 50 mg capsule TAKE 1 CAPSULE BY MOUTH 3 TIMES A DAY. active Not Available Not Available No t Available pregabalin 100 mg capsule TAKE 1 CAPSULE BY MOUTH THREE TIMES A DAY active Not Available Not Available No t Available chlorhexidi ne gluconate 0.12 % mouthwash RINSE TWICE DAILY RECOMMEND ED UNTIL SYMPTOMS ARE GONE, SWISH AND SPIT DO NOT SWALLOW active Not Available Not Available No t Available sodium fluoride 1.1 % dental paste BRUSH TWICE DAILY RECOMMEND ED active Not Available Not Available No t Available GaviLyte-G 236 gram-22.74 gram-6.74 gram-5.86 gram oral solution TAKE 8 OUNCE BY MOUTH DIRECTED active Not Available Not Available No t Available Eliquis 5 mg tablet TAKE 1 TABLET BY MOUTH TWICE A DAY active Not Available Not Available No t Available Eliquis 2.5 mg tablet TAKE 1 TABLET BY MOUTH TWICE A DAY active Not Available Not Available No t Available Biotene Dry Mouth Oral Rinse mouthwash SWISH AND SPIT 15 ML EVERY 4 (FOUR) HOURS NEEDED. active Not Available Not Available No t Available Jardiance 10 mg tablet TAKE 1 TABLET BY MOUTH EVERY DAY active Not Available Not Available No t Available Trintellix 5 mg tablet TAKE 1 TABLET BY MOUTH EVERY DAY active Not Available Not Available No t Available Trintellix 20 mg tablet TAKE 1 TABLET BY MOUTH EVERY DAY active Not Available Not Available No t Available Dupixent 300 mg/2 mL subcutaneou s pen injector active Not Available Not Available Not Available Vitals None Recorded Social History Question Answer Notes LastModified by Organizat ion Details LastModified Time Tobacco Smoking Status Never Smoker Dee parker [facility] 05/24/2024 13:16:06 What Is Your Level Of Alcohol Consumption? Occasional Information not available 05/24/2024 What Is Your Level Of Caffeine Consumption? Moderate Information not available 05/24/2024 What Is The Highest Grade Or Level Of School You Have Completed Or The Highest Degree You Have Received? [id number] Information not available 05/24/2024 Which Of Your Hands Is Dominant? Right Information not available 05/24/2024 Sex: Unknown Functional Status None recorded. Mental Status None recorded. Family History Nothing Reported. Medical History Condition Response Claustrophobia N Hospitalizations N Head Trauma/Injury N High Blood Pressure or Hypertension Y Thyroid Problems N COPD or emphysema N Lung Disease N Brain Tumors N Depression Y Encephalitis N PTSD N Vitamin B12 deficiency N Heart Attack ([place]) N Spine Problems N Obstructive Sleep Apnea N Alcoholism N Diabetes N Autoimmune disease N Bleeding Disorder N Arthritis N Cerebral Palsy N Tuberculosis N Developmental Problems N Neck Problems N Cancer N Back Problems N Stroke N Asthma N Heartburn, acid reflux, GERD Y Vitamin D Deficiency N Epilepsy/Seizures N Bipolar Disorder N Sleep Disorder N Aneurysm N Hepatitis N Liver Disease N Heart Disease Y Fibromyalgia N Headaches N High Cholesterol or Hyperlipidemia N Osteoporosis N Kidney Disease Y Gynecological HistoryNo gynecological history recorded. Obstetrics History GPAL:G 0 P 0 0 0 0 Past Encounters Encounter ID Performer Location Encounter Start Date Encounter Closed Date Diagnosis/Indication Diagnosis SNOMED-CT Code Diagnosis ICD10 Code Diagnosis Note [id number] Florentin Hooper MD [facility] [address] [place] [address] [place] [address] 10/16/2024 17:05:45 10/17/2024 07:51:24 Post-herpetic neuritis 478790772 B02.29 Health Concerns Section Related Observation LastModified by Organization Detai ls LastModified Time None Recorded Concern Status LastModified by Organization Details LastModified Time None Recorded Payers Encounter Date Sequence Insurance Name Policy Number Policy Slaughter Covered Member ID Slaughter Member ID Guarantor Name 10/16/2024 2 [place] [facility] John Lin [id number] John Lin 10/16/2024 1 [place] [employer] John Lin [id number] John Lin Notes Date Note Type Note Provider Name and Address Organization Details Recorded Time 10/16/2024 text/html Follow up for af ter botox injectinos for postherpetic neuralgia, status post ~2021 onset of herpes affecting left upper back and posterolateral shoulder, with subsequent postherpetic neuralgia symptoms of persistent intense itching.? 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 s table on medication; hypertension good control on medication; neuropathy on gabapentin; postherpetic neuralgia and cervicalgia still suboptimally managed context [facility] and pain management consultations; spinal block has not helped; occasional overflow incontinence,? She is unaccompanied.>>>>>> >>>>>>October 16, 2024Since September 13, 2024 Neurology follow-up encounter, she has started duloxetine 30 mg capsules, taking the medication every morning 7-8 a.m. She reports no side effects. She took 30 mg for 1 week, 60 mg for 1 week and has been on 90 mg 7-8 a.m. since the beginning of the third week on the medication, ~September 27, 2024. After ~September 27, on 90 mg duloxetine daily, for the first week or so, she felt the medication was working significantly. She did not need her oxycodone for her left upper quadrant pain. However for about the last week and a half, the benefit has at least partially waned. Some of the time she thinks it is working, other times, especially morning at waking, the pain is extremely bad and she needs her oxycodone.She relates no side effects to duloxetine. She has checked blood pressure and it is okay. As we planned, she stopped her Lexapro at the beginning of the second week of duloxetine, when she had duloxetine 60 mg every morning. Her mood did not worsen. She feels her mood has been even a little better since starting duloxetine 90 mg every morning.Also around September 27, 2024, she went to [place] to be with friends and had fun. She was sometimes a little irritable with her friends because they were telling her what to do. This happened also in the past when she was on Lexapro. She has had no other changes in medications. >>>>>>>>>>>>September 13, 2024Shortly after August 22, 2024 Neurology follow-up encounter for Botox intradermal injections in her left upper quadrant to help intense itching and stabbing pain, she had onset of left upper extremity weakness. She has trouble even lifting the arm. She is right-handed so she has even been able to continue playing tennis. But when she uses the left arm, such as holding onto a banister walking upstairs, this is hard. In addition, moving her head with her neck feels a little funny. Sometimes it feels as if it is a little difficult holding her head up. Someone mentioned that she was moving unusually while they were playing tennis and she thinks problems holding her head up is part of that.Meanwhile, she has not had any significant benefit from the Botox injections for her intense itching and stabbing pain. Maybe some of the stabbing is a little less intense in the small region where we focused the Botox on her upper lateral back, but the benefit that may be there is small.Meanwhile, she has finished her taper of duloxetine and is now on Lexapro 20 mg daily. She feels depressed, she thinks more so than when she was on the duloxetine. She cannot say for sure if the not feeling right that she had on the duloxetine, her main reason for switching toward the Lexapro, is gone. >>>>>>>>>>>>Nakul r 2023 presenting symptomotology:In ~2021, ~2 years ago she had onset of pain weakness and rash in left upper back and posterior lateral shoulder. Diagnosis of herpes was made although there was some delay with that diagnosis. The pain was intense, enough so that she was continually crying.The rash resolved. Her weakness has mostly improved with the help of physical therapy. She is able to play tennis again. (She is right-handed but needs her left arm to throw up the ball while surfing.)At some point, there was some improvement in her pain. She has found partial benefit of oxycodone and marijuana Gummies. She has reduced oxycodone to a considerably lower dose than initially because of side effects. She has adjusted her marijuana gummy dose and variety so that side effect of feeling high is relatively mild. Yet, there is persistent, continual intense itching that prominently disrupts her ability to focus on daily activities.She has had multiple consultations for additional intervention for her persistent intense itching. One sales and leasing consultant performed MRI cervical spine and follow-up at least part of the problem related to cervical radiculopathy. Neurosurgery consult was agreed and told her that her symptoms were from postherpetic neuralgia. Another consult provided trial of lidocaine patch and a trial of capsaicin. This did not help. She notes that there is a persistent change in her skin texture from that trial of capsaicin. A third sales and leasing consultant offered antidepressant medications and surgery. 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 The gabapentin helps at this dose, at least partially. She has had a trial up to 900 mg three times a day and attempt to help her postherpetic neuralgic discomfort. There was no benefit and so she subsequently returned to 600 mg twice a day. Since she has had herpes and postherpetic neuralgia, she has never missed a dose of gabapentin and so she does not know whether the dose at its current level helps the postherpetic neuralgic discomfort.She has been on duloxetine 60 mg daily for depression but is on a wean, currently at 20 mg, moving toward Lexapro. The reason for the wean and cross titration is that the duloxetine was causing her not to feel right. She has noticed no worsening of her left upper quadrant postherpetic neuralgic discomfort with the reduction of duloxetine. Florentin Hooper MD [address] [place] [address] [place], [phone], [facility] 10/16/2024 18:03:24 OBGyn Episode No OBEpisode recorded.
--- OUTSIDE RECORDS SUMMARY | 2024-10-19 17:45 | XMS_ITS | Clinical Summary ---
Author Organization [facility] Address [address] [place] [address] Care Team Providers Care Video Tape Editor Name Role Phone Unavailable Primary Care Provider Unavailabl e Social History Tobacco Use Types Packs/Day Years Used Date Smoking Tobacco: Never Assessed Sex and Gender Information Value Date Recorded Sex Assigned at Not on file Gender Identity Not on file Sexual Orientation Not on file Plan of Treatment Health Maintenance Due Date Last Done Comments Hepatitis C Virus Screening 1955 DTaP/Tdap/Td Vaccines (1 - Tdap) 1973 Pneumococcal Vaccines 50+ (1 of 1 - PCV) 2004 Zoster (Shingles) Vaccine (1 of 2) 2004 COVID-19 Vaccine ( - 2023-2 5 season) 2024 RSV Vaccine 60 years and old er and Patients (1 - 1-dose 75+ series) 2029 Hepatitis B Vaccines Aged Out No long er eligible based on patient's age to complete this topic
--- OUTSIDE RECORDS SUMMARY | 2024-10-19 17:45 | XMS_ITS ---
Author Organization [facility] Address [address] [address] Care Team Providers Care Brim And Crown Presser Name Role Phone Eva Monreal Primary Care Provider MANUEL Agarwal Unavailable [phone] REASON FOR VISIT [facility] referral Encounters Encounter Location Date Provider Diagnosis [facility] [address] [address] 02/02/2024 MANUEL MELÉNDEZ Plan Of Treatment No Information Progress Notes * John LIN ADOB: (68 yo F)Acc No.[id number]:02/02/2024 Patient:?John LIN :1955???Age:68 Y???Sex:Female Phone: Address:[address] [place] [phone] * true * Date:? Generated for Erendira lizama/Ely/eTransmitting on:?10/19/2024 05:45 PM EST
--- OUTSIDE RECORDS SUMMARY | 2024-10-19 17:45 | XMS_ITS ---
Author Organization [facility] Address [address] [address] Care Team Providers Care Safety Deposit Clerk Name Role Phone Eva Monreal Primary Care Provider Unavailabl e CORDELIA MELÉNDEZ Unavailable [phone] Allergies Allergen (clinical drug ingredient) Drug/Non Drug Allergy documented on EMR Reaction Allergy Type Onset Date Status amlodipine Amlodipine ankle swell Drug Allergy Act le amoxicillin Amoxicillin rash Drug Allergy Act le lisinopril Lisinopril cough Drug Allergy Activ e Reason For Referral Reason Left lower extremity venous stasis dermatitis changes with edema. ? venous reflux Diagnosis 1 Edema of left lower extremity due to peripheral venous insufficiency (I87.2) Diagnosis 2 Lower extremity veno us stasis (I87.8) Referral Organization [facility] Referring Provider First Name CORDELIA Referring Provider Last Name MEDHAT Referring Provider Speciality Podiatry Referred Provider Specialty Intervention al Radiology Referral Priority Routine REASON FOR VISIT bump in left arch, left great toenail issue, rash on leg. Medications Medication SIG (Take, Route, Frequency, Duration) Notes Start Date End Date Status Ciclopirox 8 % 1 application Supervising Producer ally to toenail Once a day [...] Dental Active Fluorouracil 5 % 1 application Supervising Producer ally Twice a day Active Folic Acid [...] day Active Mupirocin 2 % 1 application Supervising Producer ally Twice a day Active Nystatin-Triamcinolone 605065-0.1 UNIT/GM 1 application Externally Twice a day Active oxyCODONE HCl 5 MG 2 tablets as needed Orally every 4 hrs Active Probiotic Active Niacinamide 500 MG 1 tablet Orally Once a day Active Nystatin 873233 UNIT/ML 4 mL Mouth/Throa t Four times a day Active Tacrolimus 0.1 % 1 application Supervising Producer ally Once a day Active Tretinoin 0.025 % 1 application in the evening to face Externally Once a day Active Valtrex 500 MG 1 tablet Orally Once a day Active Problems Problem Type SNOMED Code ICD Code Onset Dates Problem Status W/U Status Risk Notes Problem 39296679742388243 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 Vital Signs Weight 120.9 lbs 02/01/2024 Height 5ft 7in in 02/01/2024 BMI 18.93 kg/m2 02/01/2024 Heart Rate 63 /min 02/01/2024 Temperature 97.5 degrees Fahrenheit 02/01/20 24 Respiratory Rate 16 /min 02/01/2024 Encounters Encounter Location Date Provider Diagnosis [facility] [address] [facility] [address] [place] [address] 02/01/2024 CORDELIA MELÉNDEZ Accessory navicular bone of left foot Q74.2 ; Bony prominence palpable in left ankle M89.8X7 ; Onychomycosis B35.1 ; Lower extremity venous stasis I87.8 and Edema of left lower extremity due to peripheral venous insufficiency I87.2 Assessments Encounter Date Diagnosis (ICD Code) Assessment Notes Treatment Notes Treatment Clinical Notes Section Notes 02/01/2024 Accessory navicular bone of left [...] venous insufficiency. She has been seeing a Meeting Manager. 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 I have placed a referral with [facility] to see if there is a venous component. She will continue her follow ups with dermatology as well. 02/01/2024 Edema of left lower extremity due to peripheral venous insufficiency (ICD-10 - I87.2) Plan Of Treatment Medication Medication Name Sig Start Date Stop Date Notes Ciclopirox 8 % 1 application Supervising Producer ally to toenail Once a day [...] venous insufficiency. She has been seeing a Meeting Manager. 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 I have placed a referral with [facility] to see if there is a venous component. She will continue her follow ups with dermatology as well. Pending Test Test Name Order Date X ray : Foot, left 3v 02/01/2024 Referrals Referral Date Details 02/01/2024 02/01/2024, Left low er extremity venous stasis dermatitis changes with edema. ? venous reflux Progress Notes * John LIN ADOB: 4 (68 yo F)Acc No.[id number]:02/01/2024 Consult note Patient:?John LIN A Provider:?Cordelia Mcclendon DPM :1955???Age:68 Y???Sex:Female D ate:02/01/2024 Phone: Address:[address] [place] [address] [id number] Pcp:Eva Monreal Subjective: * Chief Complaints: * ???Bump in left arch, left g reat toenail issue, rash on leg. * HPI: ???Foot & Ankle:? Ms. Lin is a 68 [...] few months. She has been seeing a soda worker in [place] who has been giving her topical treatments. [...] to follow closely with Gabrielle Bauman in [place]. * ROS:?General/Constitutional:?Denies?Chills.?Denies?Fatigue.?Denies?Fever.?Denies?Headache.?Allergy/Immunology:?Denies?Hives.?Denies?Itching.?Denies?Rash.?Endocrine:?Denies?Excessive sweating.?Denies?Excessive thirst.?Denies?Frequent urination.?Respiratory:?Denies?Cough.?Denies?Shortness of breath,?denies.?Denies?Wheezing.?Cardiovascular:?Denies?Chest pain.?Denies?Claudication.?Denies?Cyanosis.?Gastrointestinal:?Denies?Abdominal pain.?Denies?Constipation.?Denies?Diarrhea.?Hematology:?Denies?Bleeding problems,?denies.?Denies?Easy bruising,?denies.?Denies?Swollen glands.?Musculoskeletal:?Patient complaining of?bump arch of left foot.?.?Denies?Joint stiffness.?Denies?Leg cramps.?Peripheral Vascular:?Denies?Blanching of skin.?Blood clots in legs?Denies.?Denies?Cold extremities.?Skin:?Denies?Masses.?Admits?Nail changes.?Admits?Rash.?Denies?Skin lesion(s).?Neurologic:?Denies?Paralysis.?Denies?Tingling/Numbness.?Denies?Tremor.?Psychiatric:?Denies?Auditory/visual hallucinations.?Denies?Delusions.?Denies?Suicidal thoughts.? * Medical History:? 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 (boy) 1985c-section (boy) 1989c-section (girl) 1992chemo therapy bone marrow transplant X 4 partial nephrectomy * Family History:?Mother: harinie rtension.?2 son(s) , 1 daughter(s) - healthy. .? * Social History:?Tobacco: never Alcohol: yes, rarely. * Medications:?TakingValtrex 5 00 MG Tablet 1 tablet Orally Once a day Tretinoin 0.025 % Cream 1 application in the evening to face Externally Once a day Tacrolimus 0.1 % Ointment 1 application Externally Once a day Probiotic oxyCODONE HCl 5 MG Tablet 2 tablets as needed Orally every 4 hrs Nystatin-Triamcinolone 828617-8.1 UNIT/GM Cream 1 application Externally Twice a day Nystatin 042279 UNIT/ML Suspension 4 mL Mouth/Throat Four times [...] Orally every 4 hrs Taking Nystatin- Triamcinolone 337067-5.1 UNIT/GM Cream 1 application Externally Twice a day Taking Nystatin 924947 UNIT/ML Suspension 4 mL Mouth/Throat Four times [...] reviewed and reconciled with the patient * Allergies:?Amlodipine: ankle swellAmoxicillin: rashLisinopril: coughno[Allergies Verified] Objective: * Vitals:?Wt:120.9lbs, Ht: 5ft 7in, BMI:18.93Index, HR:63/min, Temp:97.5F, RR:16/min, Ht-cm: 170.18, Wt-k.84 kg. * Examination: ???General Examination: ???This is an elderly female. Alert and oriented [...] and right. Therapeutic Interventions: Assessment: * Assessment: 1.?Accessory navicular bone of left foot - Q74.2 (Primary)?2.?Bony prominence palpable in left ankle - M89.8X7?3.?Onychomycosis - B35.1?4.?Lower extremity venous stasis - I87.8?5.?Edema of left lower extremity due to peripheral venous insufficiency - I87.2? Plan: * Treatment: 2.?Bony prominence palpable in left ankle?Imaging: X ray : Foot, left 3v 3.?Onychomycosis? Start Ciclopirox Solution, 8 %, 1 application, Externally to toenail, Once a day, 30 days, 6.6 Milliliter, Refills 4.?? Notes: Patient has a severly dystrophic left [...] the layers of medication once a week. ?? 4.?Lower extremity venous st asis? Notes: Patient with erythematous rash to the lower left leg with pitting edema. I am suspicious that this could be venous stasis dermatitis due to underlying venous insufficiency. She has been seeing a Meeting Manager. 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 I have placed a referral with [facility] to see if there is a venous component. She will continue her follow ups with dermatology as well. ? Referral To:Interventional Radiology ?Reason:Left lower extremity venous stasis dermatitis changes with edema. ? venous reflux 5.?Edema of left lower extre mity due to peripheral venous insufficiency? Referral To:Interventional [...] radio opaque foreign bodies. ? * Procedure Codes:?23228 X-RAY EXAM OF FOOT 3 Views, Modifiers: LT * Billing Information: * Visit Code:? 16770 Office Visit, New Pt., Level 3. * Procedure Codes:? 29491 X-RAY EXAM OF FOOT 3 Views. Modifiers: LT * Sign off status: Completed true * Provider:?Cordelia Mcclendon DP Date:?01/31 Generated for Erendira lizama/Ely/Tiffaniesmitting on:?10/19/2024 05:45 PM EST History and Physical Notes * Examination Category Sub-Category Detail Notes Category Not es General Examination This is an elderly female. Alert and oriented [...] muscle groups on the left and right. Consultation Request Notes Referral Date Referring Provider Referred Provider Not es 02/01/2024 CORDELIA MELÉNDEZ , Left lower ex tremity venous stasis dermatitis changes with edema. ? venous reflux
--- OUTSIDE RECORDS SUMMARY | 2024-10-19 17:45 | XMS_ITS | Patient Health Record ---
Author Organization [facility] Address [address] [address] Care Team Providers Care Attorney Lawyer Name Role Phone Eva Monreal Primary Care Provider Unavailabl e MANUEL MELÉNDEZ Unavailable [phone] Allergies Allergen (clinical drug ingredient) Drug/Non Drug Allergy documented on EMR Reaction Allergy Type Onset Date Status amlodipine Amlodipine Unknown Drug Allergy Activ e amoxicillin Amoxicillin Unknown Drug Allergy Act le lisinopril Lisinopril Unknown Drug Allergy Activ e Reason For Referral Reason Left lower extremity venous stasis dermatitis changes with edema. ? venous reflux Diagnosis 1 Edema of left lower extremity due to peripheral venous insufficiency (I87.2) Diagnosis 2 Lower extremity veno us stasis (I87.8) Referral Organization [facility] Referring Provider First Name MANUEL Referring Provider Last Name MEDHAT Referring Provider Speciality Podiatry Referred Provider Specialty Intervention al Radiology Referral Priority Routine Medications Medication SIG (Take, Route, Frequency, Duration) Notes Start Date End Date Status Gabapentin 300 MG 1 capsule Orally Onc e a day Active PreviDent 1.1 % as directed Dental Active LORazepam 1 MG 1 tablet at bedtime as needed Orally Once a day Active Nystatin-Triamcinolone 826257-3.1 UNIT/GM 1 application Externally Twice a day Active Fluorouracil 5 % 1 application Maintenance Services Dispatcher ally Twice a day Active oxyCODONE HCl 5 MG 2 tablets as needed Orally every 4 hrs Active Probiotic Active Multivitamin - 1 tablet Orally Once a day Active Tacrolimus 0.1 % 1 application Maintenance Services Dispatcher ally Once a day Active Mupirocin 2 % 1 application Maintenance Services Dispatcher ally Twice a day Active Tretinoin 0.025 [...] Orally Active Mupirocin 2 % 1 application Maintenance Services Dispatcher ally Twice a day Active Niacinamide 500 MG 1 tablet Orally Once a day Active Nystatin 900711 UNIT/ML 4 mL Mouth/Throa t Four times a day Active Furosemide 20 MG 1 tablet Orally Once a day Active Ciclopirox 8 % 1 application Maintenance Services Dispatcher ally to toenail Once a day for [...] rally every 6 hrs Active Probiotic Active Problems Problem Type SNOMED Code ICD Code Onset Dates Problem Status W/U Status Risk Notes Problem [id number] 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 Vital Signs Heart Rate 63 /min 02/01/2024 Temperature 97.5 degrees Fahrenheit 02/01/2024 Respiratory Rate 16 /min 02/01/2024 Height 5ft 7in in 02/01/2024 Weight 120.9 lbs 02/01/2024 BMI 18.93 kg/m2 02/01/2024 Encounters Encounter Location Date Provider Diagnosis [facility] [address] 02/01/2024 MANUEL MELÉNDEZ Accessory navicular bone of left foot Q74.2 ; Bony prominence palpable in left ankle M89.8X7 ; Onychomycosis B35.1 ; Lower extremity venous stasis I87.8 and Edema of left lower extremity due to peripheral venous insufficiency I87.2 [facility] [address] 01/04/2024 MANUEL MEDHAT [facility] [address] 01/24/2024 MANUEL MEDHAT [facility] [address] 02/02/2024 MANUEL MELÉNDEZ Assessments Encounter Date Diagnosis (ICD Code) Assessment [...] venous insufficiency. She has been seeing a Banking Representative. 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 I have placed a referral with [facility] to see if there is a venous component. She will continue her follow ups with dermatology as well. 02/01/2024 Edema of left lower extremity due to peripheral venous insufficiency (ICD-10 - I87.2) Plan Of Treatment Pending Test Test Name Order Date X ray : Foot, left 3v 02/01/2024 Insurance Providers Payer Name Payer Address Payer Phone Subscriber Number Group Number Insured Name Patient Relationship to Insured Coverage Start Date Coverage End Date [employer] of [place] [address] [place] [id number] John Lin Self - patient is the insured Medical (General) History Medical History History ICD Code acute myeloblastic leukemia in remission aortic stenosis collagenous colitis depression gastroesophageal reflux disease (GERD) 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
--- OUTSIDE RECORDS SUMMARY | 2024-10-19 17:45 | XMS_ITS | Encounter Summary ---
Author Organization [facility] Address [address] [place] [address] Care Team Providers Care Sports Broadcasting Internship Name Role Phone Eva Monreal Primary Care Provider [phone] Reason for Visit * Reason Onset Date Comments Appointment Rescheduling 02/15/2022 Encounter Details Date Type Department Care Team ([facility] Contact Info) Description 02/15/2022 Telephone [facility] Central Scheduling Department [address] [place] [phone] Telephone Intake, Staff Appointment Rescheduling Social History Tobacco Use Types Packs/Day Years Used Date Smoking Tobacco: Never Smokeless Tobacco: Never Comments Unknown Sex and Gender Information Value Date Recorded Sex Assigned at Female 08/23/2021 9:52 PM EST Legal Sex Female 2:35 PM EDT Gender Identity Female 08/23/2021 9:52 PM EST Sexual Orientation Bisexual 08/23/2021 9: 52 PM EST documented as of this encounter Miscellaneous Notes * Telephone Encounter - Yaneth Lee - 02/15/2022 10:58 AM EDT PT has an appointment on 02/[address] Bangura and would like to know if there is anything earlier inthe day preferable 12-2. PT stated that next Tuesday you will be out of town but the Tuesday after is fine. Please reach out to PT. documented in this encounter Plan of Treatment Not on file documented as of this encounter Visit Diagnoses Not on filedocumented in this encounter Care Teams Sports Broadcasting Internship Relationship Specialty Start Date End Date Eva Monreal [address] [place] [address] PCP - General Internal Medicine 12/12/20 documented as of this encounter
--- OUTSIDE RECORDS SUMMARY | 2024-10-19 17:46 | XMS_ITS | Data Portability ---
Author Organization [facility], [facility] Address [address] [place] [address] Care Team Providers Care Hand Quilter Name Role Phone SHAYLEE JENSEN Primary Care Provider Assessment Encounter Date Assessment Date Assessment LastModified by Organization Details LastModified Time 09/23/2016 09/23/2016 Osteopenia in patient on chronic steroids with hx of AML s/p bone marrow transplants x4. 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 BP up today both at intake and at end of visit (190/115 by ia)- start losartan. BMD Results: Spine: -1.0 (2015); was -2.2 (2009) Left femoral neck= -2.0 (07/21)- was -1.8 (2009); Total hip= -1.3 (07/2016); was -1.8 (2009) PCP is Erwin Gavin. Team at [facility] is: TERESE Desir (Darron Enciso (xplant) ID is Jose Manuel Penn [email or web address] Not available 09/23/2016 19:00:23 10/11/2024 10/11/2024 HYPOTHYROID: 10/30: Dose increased and told to take 75 alternating 150. Taking in AM with food/vitamins. THYROID NODULE: in past. Reportedly benign bx years ago OSTEOPENIA: BMD 12/27 still has osteopenia with OK FRAX scores but has decreased from 2020. In past was on chronic steroids with hx of AML s/p bone marrow transplants x4. 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 HISTORY AML: has done well overall but with complications (GvH), post-herpetic neuralgia, etc. POST-HERPETIC NEURALGIA. Chronic itching too HTN/AFIB with possible heart failure. On jardiance and furosemide. no hx of DM. 10/30: suggest switch to 112mcg. [email or web address] Not available 10/11/2024 17:39:31 Plan of Treatment Reminders Order Date Submit Date Provider Last Modified By Organization Details Last Modified Time Details Appointments None recorded. Lab vitamin D, 25-hydrox y, total, serum 2024 025 [facility], [address] [place] [address], [id number], 12:17:20 renal function panel, serum 2024 025 [facility], [address] [place] [address], [id number], 12:17:20 magnesium , blood 2024 025 [facility], [address] [place] [address], [address], 12:17:20 PTH (parathyr oid hormone), intact, serum or plasma 2024 025 [facility], [address] [place] [address], [id number], 12:17:20 TSH, serum or plasma 2024 025 [facility], [address] [place] [address], [place], [address], 12:17:20 TSH, serum or plasma 2024 025 [facility], [address] [place] [address], [id number], 12:17:20 T4, free, serum 2024 025 [facility], [address] [place] [address], [id number], 12:17:20 Referral None recorded. Procedures None recorded. Surgeries None recorded. Imaging None recorded. Medication Orders levothyro xine 112 mcg tablet 2024 025 [id number], [address] [place], [address], 17:43:50 losartan 100 mg tablet 2016 017 [id number], [address] [place], [address], 16:30:16 Patient TargetsNo targets recorded. Patient Instructions Encounter Date Encounter Id Patient Instructions Last Modified By Organization Details Last Modified Time 09/23/2016 [id number] Discussed CCM- signed 09/2016- [facility] [email or web address] Not available 09/24/2016 14:58:51 10/11/2024 [id number] - Continue to take calcium (7606-2839 mg per day) and vitamin D (7071-5106 units per day). - Consider looking for opportunities for exercise or balance classes to help prevent falls. - Get labs done every 3 months ([place]) - Continue taking thyroid hormone every day away from other food and especially from other minerals like calcium (dairy), iron, magnesium, etc. - Contact office if any symptoms of low thyroid (excess fatigue, unexplained weight gain, feeling much more cold than usual, constipation, very dry skin) or excess thyroid (heart racing, unexplained weight loss, feeling jittery/nervous/ anxious, change in frequency of moving bowels, tremors, or insomnia) [email or web address] Not available 10/11/2024 17:41:49 3-4 months for 20min visit Discussed CCM- signed 09/2016- [facility] [email or web address] Not available 10/11/2024 17:42:03 Reason for Referral None Reported. Results Created Date Observation Date Name Description Value Unit Range Abnormal Flag Note LastModifiedBy Organization Detail LastModifiedTime 10/10/19 25 DEXA, axial skele ton No observ ation record ed. [email or web address] Not Available 0 10/11/2024 16:45:08 Result Notes None recorded. Procedures Surgical History Date Name Laterality Status Provider Name and Address Organization Details Recorded Time 09/05/2011 Hernia Repair completed GREGORIA Shafer [address] [place], [address], [facility] [place]/23/2016 16:36:11 09/05/1991 completed GREGORIA Shafer [address] [place], [address], [facility] [place] 09/23/2016 16:34:24 09/05/1988 completed GREGORIA Shafer [address] [place], [address], [facility] [place] 09/23/2016 16:34:29 09/05/1984 completed GREGORIA Shafer [address] [place], [address], [facility] [place]/23/2016 16:34:20 Imaging Results Imaging Date Name Status LastModified by Organiz ation Details LastModified Time 10/10/2024 DEXA, axial skeleton completed Information not available 10/11/2024 16:45:08 Procedure Notes None recorded. Medical Equipment None Reported. Allergies Allergen ID Allergen Name Allergen Category Reaction Reaction Severity Criticality Documentation Date Start Date Code Code System Note Provider Name and Address Organization Details Recorded Time [id number] Product containin g penicilli n and antibioti c (product) medicatio n Not available Not available Not available 09/23/2016 05760 05 SNOMED GREGORIA Shafer [address] [facility] [place], [address], [facility] [place] 16:36:43 Medications Name Sig Start Date Stop Date Status Note LastModified by Organization Details LastModified Time furosemide 40 mg tablet TAKE 1 TABLET BY MOUTH 1 TIME EACH DAY. 10/11 completed Not Available Not Available Not Available fluconazol e 100 mg tablet TAKE 1 TAB BY MOUTH DAILY FOR 10 DAYS, THEN 1 TAB ONCE WEEKLY FOR 90 DAYS. 10/11 completed Not Available Not Available Not Available pilocarpin e 5 mg tablet TAKE 1 TABLET BY MOUTH THREE TIMES A DAY 10/11 completed Not Available Not Available Not Available nystatin 100,000 unit/mL oral suspension SWISH AND SPIT WITH 5 ML 3 (THREE) TIMES A DAY. active Not Available Not Available No t Available clindamyci n HCl 300 mg capsule TAKE 1 CAPSULE BY MOUTH 4 TIMES A DAY. 10/11 completed Not Available Not Available Not Available ammonium lactate 12 % lotion 10/11 completed Not Available Not Available Not Available diltiazem CD 180 mg capsule,ex tended release 24 hr TAKE 1 CAPSULE BY MOUTH 1 TIME EACH DAY. 10/11 completed Not Available Not Available Not Available Lidocaine Viscous 2 % mucosal solution USE DIRECTED -USE 5 ML IN THE MOUTH OR THROAT 3 (THREE) TIMES A DAY. active Not Available Not Available No t Available amiodarone 200 mg tablet TAKE 1 TABLET BY MOUTH EVERY DAY 10/11 completed Not Available Not Available Not Available sulfametho xazole 400 mg-trimeth oprim 80 mg tablet Take 1 tablet every day by oral route. 10/11 completed Not Available Not Available Not Available valacyclov ir 1 gram tablet 10/11 completed Not Available Not Available Not Available Ativan 1 mg tablet Take 1 tablet 3 times a day by oral route. active Not Available Not Available No t Available diltiazem CD 240 mg capsule,ex tended release 24 hr TAKE 1 CAPSULE BY MOUTH EVERY DAY active Not Available Not Available No t Available fluorourac il 5 % topical cream APPLY TO THE FOREHEAD , LEFT CHEEK AND LOWER LEGS TWICE DAILY FOR 2 WEEKS active Not Available Not Available No t Available metoprolol succinate ER 100 mg tablet,ext ended release 24 hr TAKE 1 TABLET BY MOUTH EVERY DAY 10/11 completed Not Available Not Available Not Available acetaminop hen 300 mg-codeine 30 mg tablet 10/11 completed Not Available Not Available Not Available valacyclov ir 500 mg tablet TAKE 1 TABLET BY MOUTH TWICE A DAY active Not Available Not Available No t Available levothyrox ine 25 mcg tablet TAKE 1 TABLET BY MOUTH EVERY MORNING 10/11 completed Not Available Not Available Not Available levothyrox ine 75 mcg tablet Take 1 tablet every day by oral route. active one tab daily and every other day take two tabs 10/11/24 Not Available Not Available Not Available dexamethas one 0.5 mg/5 mL oral solution SWISH AND HOLD 5 ML IN MOUTH FOR 4-5 MIN, THEN SPIT, 3 TIMES A DAY. NO FOOD/DRI NK FOR 20 MIN AFTER active as needed Not Available Not Available Not Available ciclopirox 8 % topical solution APPLY EXTERNAL LY TO TOENAIL ONCE A DAY FOR 30 DAYS 10/11 completed Not Available Not Available Not Available famotidine 20 mg tablet TAKE 1 TABLET BY MOUTH TWICE A DAY active Not Available Not Available No t Available lorazepam 0.5 mg tablet TAKE 1 TABLET ORALLY DAILY NEEDED FOR ANXIETY active Not Available Not Available No t Available prednisone 1 mg tablet Take 1 tablet every day by oral route. 10/11 completed Not Available Not Available Not Available doxycyclin e monohydrat e 100 mg capsule TAKE 2 CAPSULES BY MOUTH ONCE FOR 1 DOSE. 10/11 completed Not Available Not Available Not Available levothyrox ine 50 mcg tablet TAKE 1 TABLET BY ORAL ROUTE ONCE DAILY FOR 90 DAYS 10/11 completed Not Available Not Available Not Available cephalexin 500 mg capsule 10/11 completed Not Available Not Available Not Available calcipotri krystin 0.005 % topical cream PLEASE SEE ATTACHED FOR DETAILED DIRECTIO NS active Not Available Not Available No t Available ranitidine 150 mg tablet Take 1 tablet every day by oral route. 10/11 completed Not Available Not Available Not Available losartan 25 mg tablet TAKE 1 TABLET BY MOUTH EVERY DAY active Not Available Not Available No t Available nystatin-t riamcinolo ne 100,000 unit/g-0.1 % topical cream APPLY TOPICALL Y 4 TIMES A DAY. active Not Available Not Available No t Available gabapentin 300 mg capsule TAKE 2 CAPSULES BY MOUTH 3 TIMES A DAY active Not Available Not Available No t Available folic acid 1 mg tablet TAKE 1 TABLET BY MOUTH EVERY DAY active Not Available Not Available No t Available hydrocorti sone 2.5 % topical cream active Not Available Not Available Not Available hydroxyzin e HCl 25 mg tablet TAKE 1 TABLET BY MOUTH EVERY 8 HOURS NEEDED FOR ITCHING active Not Available Not Available No t Available mupirocin 2 % topical ointment 10/11 completed Not Available Not Available Not Available furosemide 20 mg tablet TAKE 1 TABLET BY MOUTH EVERY DAY active Not Available Not Available No t Available budesonide DR - ER 3 mg capsule,de layed,exte nded release TAKE 3 CAPSULES (9 MG TOTAL) BY MOUTH DAILY. active Not Available Not Available No t Available estradiol 0.01% (0.1 mg/gram) vaginal cream APPLY 1 GRAM VAGINALL Y 2 TIMES PER WEEK active Not Available Not Available No t Available levofloxac in 750 mg tablet TAKE 1 TABLET (750 MG TOTAL) BY MOUTH EVERY OTHER DAY FOR 6 DAYS. 10/11 completed Not Available Not Available Not Available ketoconazo le 2 % topical cream 10/11 completed Not Available Not Available Not Available clobetasol 0.05 % scalp solution APPLY TO AFFECTED AREA TWICE A DAY FOR 14 DAYS active Not Available Not Available No t Available losartan 100 mg tablet Take 1 tablet every day by oral route for 30 days. 10/11 completed Not Available Not Available Not Available doxepin 5 % topical cream APPLY TOPICALL Y 3 (THREE) TIMES A DAY. APPLY TO SHOULDER NEEDED FOR ITCHING 10/11 completed Not Available Not Available Not Available levothyrox ine 112 mcg tablet Take 1 tablet every day by oral route for 30 days. 2024 active Not Available Not Available Not Avai lable oxycodone 5 mg tablet TAKE 1 TABLET BY MOUTH EVERY 8 HOURS NEEDED FOR PAIN active Not Available Not Available No t Available Calcium with Vitamin D 500 mg-200 unit tablet Take by oral route. 10/10 completed Not Available Not Available Not Available DentaGel 1.1 % USE DIRECTED IN THE MOUTH OR THROAT NIGHTLY AT BEDTIME. active Not Available Not Available No t Available Valtrex 1,000 mg tablet Take 1 tablet every 12 hours by oral route. active Not Available Not Available No t Available escitalopr am 10 mg tablet TAKE 1 TABLET BY MOUTH EVERY DAY 10/11 completed Not Available Not Available Not Available escitalopr am 20 mg tablet TAKE 1 TABLET (20 MG) ORALLY DAILY 10/11 completed Not Available Not Available Not Available Restasis 0.05 % eye drops in a dropperett e INSTILL 1 DROP INTO AFFECTED EYE(S) BY OPHTHALM IC ROUTE EVERY 12 HOURS active Not Available Not Available No t Available Premarin 0.625 mg/gram vaginal cream Insert 0.5 applicat orsful every day by vaginal route. 10/11 completed Not Available Not Available Not Available cholestyra mine (with sugar) 4 gram powder for susp in a packet TAKE 1 PACKET DISSOLVE D IN WATER THREE TIMES A DAY NEEDED 10/11 completed Not Available Not Available Not Available escitalopr am 5 mg tablet TAKE 1 TABLET BY MOUTH EVERY DAY 10/11 completed Not Available Not Available Not Available mirtazapin e 7.5 mg tablet TAKE ONE TABLET (7.5 MG) ORALLY AT BEDTIME active Not Available Not Available No t Available duloxetine 20 mg capsule,de layed release TAKE 2 CAPSULES BY MOUTH DAILY 10/11 completed Not Available Not Available Not Available duloxetine 30 mg capsule,de layed release PLEASE SEE ATTACHED FOR DETAILED DIRECTIO NS active taking 90 daily Not Available Not Available Not Available duloxetine 60 mg capsule,de layed release TAKE 1 CAPSULE BY MOUTH EVERY DAY 10/11 completed Not Available Not Available Not Available pregabalin 50 mg capsule TAKE 1 CAPSULE BY MOUTH 3 TIMES A DAY. 10/11 completed Not Available Not Available Not Available pregabalin 100 mg capsule TAKE 1 CAPSULE BY MOUTH THREE TIMES A DAY 10/11 completed Not Available Not Available Not Available chlorhexid ine gluconate 0.12 % mouthwash RINSE TWICE DAILY RECOMMEN DED UNTIL SYMPTOMS ARE GONE, SWISH AND SPIT DO NOT SWALLOW 10/11 completed Not Available Not Available Not Available multivitam in 1 tab PO daily active Not Available Not Available No t Available Calcium 500 1 tab PO BID active Not Available Not Available No t Available sodium fluoride 1.1 % dental paste BRUSH TWICE DAILY RECOMMEN DED active Not Available Not Available No t Available fluocinolo ne acetonide oil 0.01 % ear drops 10/11 completed Not Available Not Available Not Available Eliquis 5 mg tablet TAKE 1 TABLET BY MOUTH TWICE A DAY 10/11 completed Not Available Not Available Not Available Eliquis 2.5 mg tablet TAKE 1 TABLET BY MOUTH TWICE A DAY active Not Available Not Available No t Available Jardiance 10 mg tablet TAKE 1 TABLET BY MOUTH EVERY DAY active Not Available Not Available No t Available Trintellix 5 mg tablet TAKE 1 TABLET BY MOUTH EVERY DAY 10/11 completed Not Available Not Available Not Available Trintellix 20 mg tablet TAKE 1 TABLET BY MOUTH EVERY DAY 10/11 completed Not Available Not Available Not Available Dupixent 300 mg/2 mL subcutaneo us pen injector 10/11 completed Not Available Not Available Not Available Vitals Date Recorded Body weight Body height Body mass index (BMI) Heart rate Systolic blood pressure Diastolic blood pressure Provider Name and Address Organization Details Last Updated DateTime 7 53805.7 1 g 173.36 cm 21.6 kg/m2 76 /min 176 mm[Hg] 84 mm[Hg] GREGORIA Shafer [address] [place], [address], [facility] 7 16:45:02 Date Recorded Body weight Body mass index (BMI) Body height Provider Name and Address Organization Details Last Updated DateTime 10/11/2024 29773.27 g 19 kg/m2 170.82 cm Merry Forman LPN [facility] 10/11/2024 16:22:10 Social History Question Answer Notes LastModified by Organizat ion Details LastModified Time Tobacco Smoking Status Never Smoker 09/23/16 GREGORIA Shafer [address] [place], [address], [facility] [place] 16:33:43 What Is Your Level Of Alcohol Consumption? Occasional Rarely Information not available 10/11/2024 Which Illicit Or Recreational Drugs Have You Used? None 09/23/16 Information not available 09/23/2016 CCM Consent Discussion 09/23/2016 Information not available 09/24/2016 Do You Use Any Illicit Or Recreational Drugs? Yes MJ Gummies For Pain Information not available 10/11/2024 Sex: Unknown Functional Status None recorded. Mental Status None recorded. Family History Relationship Description Onset Age of this Age Resolved Age Notes LastModified by Organization Details LastModified Time Father Tachycardia Not avail able 09/23/2016 16:32:17 Father Malignant neoplasm of brain 86 Not available 2016 16:32:46 Mother Tachycardia Not avail able 09/23/2016 16:32:17 Mother Malignant tumor of lung 88 Not available 2016 16:32:31 Notes:Dad 87- brain colin or (GLIA) Mom - lung CA Sister is 59- healthy Saul, and Guerita- healthy. Guerita has tachycardia. Medical History No medical history recorded. Gynecological HistoryNo gynecological history recorded. Obstetrics History GPAL:G 0 P 0 0 0 0 Immunizations Vaccine Type Date Status Note Provider Nam e and Address Organization Details Recorded Time SARS-COV-2 (COVID-19) vaccine, UNSPECIFIED 09/05/2020 completed Merry URSULA Forman [facility] 10/11/2024 16:35:03 SARS-COV-2 (COVID-19) vaccine, UNSPECIFIED 10/26/2020 completed Merry URSULA Forman [facility] 10/11/2024 16:35:15 Past Encounters Encounter ID Performer Location Encounter Start Date Encounter Closed Date Diagnosis/Indication Diagnosis SNOMED-CT Code Diagnosis ICD10 Code Diagnosis Note [id number] Shane Burciaga MD [facility], [address] [address] 09/23/2016 16:23:17 09/27/2016 15:34:09 Osteopenia 197357113 M85.9 BMD from 07/2016 has FRAX scores - do not suggest that she is at point of needing medical therapy. Might be worth assessing for secondary causes of bone loss- Check vitamin D, PTH and TSH. She is on steroids, albeit at a low dose (prednison e 1mg) which still could contribute over the long-haul towards decreases in bone density. Long-term current use of steroid 820911916 Z79.52 Low dose of prednisone raises the question of the purpose of the steroids. At this dose, the anti-infla mmatory properties are fairly small (since 1 mg is below physiologi c replacemen t for adrenal insufficie ncy). Obviously, the risk for a flare of GvH would be extremely worrisome so one could argue to leave her on low dose steroids (e.g., don't seem to be having a major negative impact on bone). However, she is on chronic Bactrim and Valtrex which she reports will continue as long as she's on steroids. The issue then becomes the benefits of chronic AB tx to prevent potential infections (presumabl y ) but maybe some skin as well versus the risk of selecting out sensitive organisms and increasing the likelihood of resistant organisms (if she were to get an infection) . Going off steroids might allow her to go off bactrim and valtrex (and possibly ranitidine although she recognizes that she might not need as much ranitidine if she had less caffeine). Ultimately , the decision about weaning steroids seems like it will come down to the estimated risk for GvH. If the feeling is that the risk is low or that it could be addressed with brief courses of higher dose steroids, then I would be happy to help facilitate her coming off prednisone . However, if the risk for a serious systemic GvH flare is considered reasonably high, then the steroids may be better left in place. Even if she stays on steroid, the benefit of bactrim vs. the risk of resistant organisms might be worth discussing with ID. History of leukemia 1614 00158 Z85.6 Contribute s to complexity and the need for the circumstan ceci described above. Essential hypertension 65226982 I10 BP 190/115 at end of visit. Suggest she take losartan. Thyroid nodule 365898575 E04.1 On exam on right side. Pt. gives hx of benign bx. Can follow clinically but plan to better assess with ultrasound at next visit. Skin ulcer 80363330 L98. 499 Right medial malleolus in site of MOHS procedure. Looks to be stage III with concern because of presence of odor and some erythema at perimeter. No streaking. No discharge but has (+) odor.Pt. in touch with [facility] providers to arrange follow-up. [id number] Shane Burciaga MD Endocrino logy, [facility] [address] [place] [address] 10/11/2024 16:17:15 10/12/2024 07:47:01 Osteopenia 368099560 M85.9 Goals are:- Minimize risk for fracture through physical activity and lowering risk for falls.- Maintain or improve bone density with medication s- Encourage lifestyle efforts focused on proper calcium and vitamin D. BMD@ S (vs 2020) Spine= -2.1 (12/27 -12% vs. 2020); Left total hip= -2.3 (12/27; -13.8% vs. 2020) Left femoral neck= -1.6 (12/27; -9.2% vs. 2020) frax= 13 (major) and 2.5 (hip) Had high vitamin D years ago but no f/u.Monito r vitamin D and Mg; check PTH and TSH. She was on steroids, albeit at a low dose (prednison e 1mg) for many years Essential hypertension 47674076 I10 On losartan (25). Also DILT (240) as part of AFib.Also lasix and jardiance (no DM but maybe for heart failure) Thyroid nodule 302208749 E04.1 On exam on right side. Pt. gives hx of benign bx. Can follow clinically but plan to better assess with ultrasound at next visit. History of leukemia 1618 39108 Z85.6 Contribute s to complexity and the need for the circumstan ceci described above. Hypothyroidism 96104500 E03.9 UNCONTROLL EDGOALS:- Optimize thyroid function- Minimize manifestat ions of excess or insufficie nt thyroid hormone TSH= 14.6 (09/29)Revi ew of PVIX: TSH mostly normal with 2 values in 4-4.3 range in 2019) FT4= 0.58 (09/29) Per pt, started on 25mcg and then increased to 50 and 75 and now told to take 75 alternatin g with 150 (avg of 112).This has been hard for her to remember. DIscussed importance of taking on empty stomach. she will take during middle of night when wakes up (consisten tly) Labs q 3m. Health Concerns Section Related Observation LastModified by Organization Detai ls LastModified Time None Recorded Concern Status LastModified by Organization Details LastModified Time None Recorded Advance Directives Directive None Recorded Payers Encounter Date Sequence Insurance Name Policy Number Policy Slaughter Covered Member ID Slaughter Member ID Guarantor Name 09/23/2016 1 [place] [employer] John Lin [id number] John Lin 09/23/2016 2 [place] [facility] John Lin [id number] John Lin 10/11/2024 2 [place] John Lin [id number] John Lin 10/11/2024 1 [place] [employer] John Lin [id number] John Lin Notes Date Note Type Note Provider Name and Address Organization Details Recorded Time 7 text/html Referred for ongoing steroid therapy and bone density s/p extensive chemo therapy for AML (2008)BMD (2009) =Spine: -1.0 (2015); was -2.2 (2009)Left femoral neck= -2.0 (07/21)- was -1.8 (2009);Total hip= -1.3 (07/2016); was -1.8 (2009) FRAX score was 14% for major fracture and 2.2% for hip fracture) In past, L1 and L2 excluded due to degenerative changes. Has also lost 12 teeth over years (attributes to chemo) . DAIRY: As child- Cheese most days. Milk- not with every meal. Yogurt: not much . Ate ice cream.As adult- Lactaid with cereal. Has cheese qod in general. Has a good amount of yogurt. Has ice cream. CALCIUM INTAKE: takes 500 bid. Vitamin D as part of supplement. MENSES: started age 11. RegularMenopause at 47 when got chemo. STEROIDS: Yes SEIZURE MEDS: No THYROID disease: None. Was told of thyroid nodule years ago. Had Bx (Lavinia) years ago. Took fluid out and told it was OK. KIDNEY STONES- none FRACTURES: Stress fracture after falling while running in race. Past 2 weeks- ulceration of right medial malleolus. 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 But graft doesn't seem to be taking. BOWELS: Hx of malabsorption or diarrhea. 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 SMOKING: None. Shane Burciaga MD [address] [place] [address], [phone], [facility] [place] 14:59:02 5 text/html ThyroidReported bypatient.Previous Evaluation:TSH: (14.6 (09/29)); free T4: (0.58 (09/29) Treatment:generic, dose: 75 mcg, frequency: (alternating with 150 (avg is 112). (increased from 75 daily) when TSH at 14.); 10/30: Takes in AM. Hasn't been waiting very long- has been taking with other pills and food. Takes calcium pill in AM (also in PM). Gets up during night- suggest she take T4 then. Constitutional:no heat intolerance;cold intolerance(not much difference than 6 months ago (pre-tx). Tends to run cold- no major change).); weight (122 (10/30); Lost over past 4-5 years. (lowest was around 115?) Normal used to be 135-140.) Neck:no difficulty swallowing (except pills.); no masses Heart:no palpitations; no fluttering; no chest pain; no tightness or pressure;rapid heart rate(Hx AFIB (summer 2023)- diltiazem after converted x 2 but may go for ablation. (arcoleo)); . GI:no constipation; no diarrhea; some bowel incontinence (James). Neurological:no tremor (little on/off in past.);anxiety;jittery/n ervous PCP: Chantel Waller WARP BLEACHING VAT TENDER at [facility]: [address] was Germán Enciso ([place]) (xplant)DERM: [place].HEART: Arcoleo.NEURO: Rossen. (shingles) CC: Thyroid.Started couple of months ago. Started on 25mcg. Then to 50 and then to 75 daily.Told to take 75mcg alternating with 150. long-term current use of steroidessential hypertensionthyroid nodulehistory of leukemiaLV on 09/2016 was new at this time PT states PCP has been managing thyroid but now PCP would like to be evaluated again by [facility] 09/29PT was recently had a fall and was hospitalized, slipped on a towel . [facility] with pneumonia- mentioned heart failure but then said not really the problem. 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 Now getting q 3weeks so may go back to every 2 weeks.Prednisone started with bone-marrow xplants- started for high LFTS (GvH disease). Also GvH for gut too causing diarrhea too. Was on budesonide for colitis.Neuropathy - on gabapentin (300 bid), but has gotten worse. Was on lexapro but changed to cymbalta (couple of months- little better). Multiple squamous cell events.MOHS- treating hands with chemo cream. wears gloves at night to help activate.Portion of tongue removed (years ago).High blood pressure noted intermittently- PCP said to stop caffeine.Summer 2023: PneumoniaOngoing- post-herpetic neuralgia. better with high dose duloxetine. 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 exercise is tennis and jogging and yoga and walking. 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 Knows house is too much for one person FAM Hx:Dad 87- brain tumor (GLIA)Mom - lung CASister is 59- healthyBen, and Guerita- healthy. Guerita has tachycardia.10/30; Oje is getting (06/29). nephew getting in 07/30. Previously seen for ongoing steroid therapy and bone density s/p extensive chemo therapy for AML (2008) OSTEOPENIA:BMD@ [facility] (vs 2019)Spine= -2.1 (12/27; -12% vs. 2019);Left total hip= -2.3 (12/27; -13.8% vs. 2020)Left femoral neck= -1.6 (12/27; -9.2% vs. 2019)frax= 13 (major) and 2.5 (hip) In past, L1 and L2 excluded due to degenerative changes.Has also lost 12 teeth over years (attributes to chemo) . DAIRY:As child- Cheese most days. Milk- not with every meal. Yogurt: not much .Ate ice cream.As adult- Lactaid with cereal. Occ ice cream. Some cheese (cheddar without lactose)-Yogurt most days.- Reviewed goals for 1000mg/day. CALCIUM INTAKE: Takes 500 bid. Vitamin D as part of supplement.Also K2/D3 MENSES: started age 11. RegularMenopause at 47 when got chemo. STEROIDS: NOT CURRENTLY. Budesonide prn (for stool problem). Intermittent. Had used daily for a bit w/o much help. SEIZURE MEDS: NONE THYROID disease: HYPOTHYROID- see below.Told of thyroid nodule years ago. Had Bx (Lavinia) years ago. Took fluid out and told it was OK. KIDNEY STONES- NONE FRACTURES:Stress fracture after falling while running in race.Has had several falls- most recently, tripped on towel and bruised entire side.Not sure- maybe fell more last year when on gabapentin and oxy. BOWELS: Hx of malabsorption or diarrhea. 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 SMOKING: None. Shane Burciaga MD [address] [place] [address], [phone], [facility] Medical [facility] 10/11/2024 17:43:52 OBGyn Episode No OBEpisode recorded.
--- OUTSIDE RECORDS SUMMARY | 2024-10-19 17:46 | XMS_ITS | Encounter Summary ---
Author Organization [facility] Address [address] [place] [address] Care Team Providers Care Assembling Motor Builder Name Role Phone Eva Monreal Primary Care Provider [phone] Encounter Details Date Type Department Care Team (Late st Contact Info) Description 04/12/2022 Telephone [facility] Central Scheduling Department [address] [place] [phone] Telephone Intake, Staff Social History Tobacco Use Types Packs/Day Years [...] encounter Miscellaneous Notes * Telephone Encounter - Adiel Stahl - 04/12/2022 4:12 PM EDT Patient calling to reschedule DPC appt 04/22/22 documented in this encounter Plan of Treatment Not on file documented as of this encounter Visit Diagnoses Not on filedocumented in this encounter Care Teams Assembling Motor Builder Relationship Specialty Start Date End Date Eva Monreal [address] [place] [address] PCP - General Internal Medicine 12/12/20 documented as of this encounter
--- OUTSIDE RECORDS SUMMARY | 2024-10-19 17:46 | XMS_ITS | Referral Summary ---
Author Organization [facility] Address [address] [place] [address] Care Team Providers Care Replenishment Merchandising Associate Name Role Phone Eva Monreal Primary Care Provider [phone] Allergies Active Allergy Reactions Criticality Noted Date Comments Ceftazidime Rash Low 07/20/2017 Cephalosporins Hives 08/25/2008 skin test pre-pen, pen G, and ceftriaxone on 06/20/2013, were all negative. However, given the low sensitivity of the latter, this patient should be considered cephalosporin (and carbapenem) allergic unless disproved by an forest fire lookout by way of a graded challenge. skin test pre-pen, pen G, and ceftriaxone on 06/20/2013, were all negative. However, given the low sensitivity of the latter, this patient should be considered cephalosporin (and carbapenem) allergic unless disproved by an forest fire lookout by way of a graded challenge. Imipenem-Cilastatin Hives Medium 06/20/2013 Lisinopril Other (see comments) 07/01/2010 cough cough Penicillins Rash Low 07/25/2013 this patient had a delayed type mac pap rash to amoxicillin on 07/21/2013. she was skin test negative and successfully passed a challenge to penicillin. if she were to need an aminopenicillin then she could take it without being at any higher risk than the general population for an anaphylactic type reaction, but she would likely get a delayed type drug rash. this patient had a delayed type mac pap rash to amoxicillin on 07/21/2013. she was skin test negative and successfully passed a challenge to penicillin. if she were to need an aminopenicillin then she could take it without being at any higher risk than the general population for an anaphylactic type reaction, but she would likely get a delayed type drug rash. Vancomycin Hcl Rash Medium 02/01/2013 Medications sulfamethoxazo le-trimethopri m (BACTRIM SS) 400-80 mg tablet Take by mouth daily. 1 Active LORazepam (ATIVAN) 0.5 mg tablet TAKE 1/2 TABLET BY MOUTH DAILY NEEDED 1 Active gabapentin (NEURONTIN) 300 mg capsule TAKE 3 CAPSULES (900 MG TOTAL) BY MOUTH 2 (TWO) TIMES A DAY. 1 Active calcipotriene (DOVONOX) 0.005% cream Apply topically to the affected area 2 times daily. 1 Active valACYclovir (VALTREX) 1 gram tablet Take 1,000 mg by mouth 2 times daily. 1 Active amLODIPine (NORVASC) 5 mg tablet Take 5 mg by mouth daily. 1 Active fluoride, sodium, 1.1 % paste BRUSH TWICE DAILY UNTIL FINISHED RECOMMENDED 1 Active folic acid (FOLVITE) 1 mg tablet Take 1,000 mcg by mouth daily. 1 Active predniSONE (DELTASONE) 1 mg tablet 1 Active famotidine (PEPCID) 20 mg tablet 1 Active oxyCODONE IR (ROXICODONE) 5 mg tablet Take 10 mg by mouth every 4 hours as needed. 1 Active Trintellix 20 mg tablet Take 1 tablet by mouth daily. 1 Active fluorouraciL (EFUDEX) 5% cream Mix 50/50 with calcipotriene and apply twice daily to tops of forearms and hands for up to 10 days. Stop sooner for severe pain, oozing, ulceration. 0 Active estradioL (Estrace) 0.01 % (0.1 mg/gram) vaginal cream 0 Active Lactobac no.41/Bifidoba ct no.7 (PROBIOTIC-10 ORAL) Take by mouth. Activ e NIACINAMIDE ORAL Take by mouth. Activ e triamcinolone acetonide (KENALOG) 0.1% ointment Apply topically to the affected area 2 times daily. 1 Active ketoconazole (NIZORAL) 2% shampoo Apply topically to the affected area daily. 1 Active budesonide (ENTOCORT EC) 3 mg EC capsule Take 9 mg by mouth once a day. 2 Active cycloSPORINE (RESTASIS) 0.05% ophthalmic emulsion Instill 1 drop into affected eye(s) every 12 (twelve) hours. 2 Active Restasis 0.05 % ophthalmic emulsion 1 drop every 12 hours. 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 Overview (02/11/2021): IMO update Hypertensive disorder 04/13/2012 Overview (02/11/2021): Hypertensive disorder Squamous cell carcinoma 06/18/2011 Overview (02/11/2021): Squamous cell carcinoma; s/p removal from forehead Cytomegalovirus infection 02/27/2008 Overview (02/11/2021): Cytomegalovirus infection; Viral load positive; 2000 Hypertriglyceridemia 02/27/2008 Overview (02/11/2021): Hypertriglyceridemia Acromioclavicular separation 07/08/2007 Overview (02/11/2021): Acromioclavicular separation; Right; with subluxation of the acromion Acute myeloid leukemia 07/06/2007 Overview (02/11/2021): Acute myeloblastic leukemia; M2, 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 Depressive disorder 07/06/2007 Overview (02/11/2021): Depression; at least since 2002 Obsessive-compulsive disorder 07/06/2007 Overview (02/11/2021): Obsessive compulsive disorder; at least since 2002 Thyroid nodule 07/06/2007 Overview (02/11/2021): Thyroid nodule; cystic. Known since before 2002 Social History Tobacco Use Types Packs/Day Years Used Date Smoking Tobacco: Never Smokeless Tobacco: Never Comments Unknown Sex and Gender Information Value Date Recorded Sex Assigned at Female 08/23/2021 9:52 PM EST Legal Sex Female 2:35 PM EDT Gender Identity Female 08/23/2021 9:52 PM EST Sexual Orientation Bisexual 08/23/2021 9: 52 PM EST Last Filed Vital Signs Vital Sign Reading Time Taken Comments Blood Pressure 128/83 09/23/2021 1:48 PM EST Pulse 84 09/23/2021 1:48 PM EST Temperature - - Respiratory Rate - - Oxygen Saturation - - Inhaled Oxygen Concentration - - Weight 54.4 kg (120 lb) 10/07/2021 1:31 PM EST Height 172.7 cm (5' 8 ) 10/07/2021 1:31 PM EST Body Mass Index 18.25 10/07/2021 1:31 PM EST Plan of Treatment Not on file Insurance MEDICARE [facility] Care Teams Replenishment Merchandising Associate Relationship Specialty Start Date End Date Eva Monreal [address] [place] [address] [phone] PCP - General Internal Medicine 12/12/20
--- OUTSIDE RECORDS SUMMARY | 2024-10-19 17:46 | XMS_ITS | Continuity of Care Document ---
Author Organization [facility], Endocrinology, [facility] Address [address] [place] [address] Care Team Providers Care Change Management Name Role Phone CAMILA SHAYLEE Primary Care Provider [phone] Assessment Encounter Date Assessment Date Assessment LastModified by Organization Details LastModified Time 10/11/2024 10/11/2024 HYPOTHYROID: 10/30: Dose increased and [...] D, 25-hydrox y, total, serum 2024 025 [facility], [address] [place] [address], [id number], 12:17:20 renal function panel, serum 2024 025 [facility], [address] [place] [address], [id number], 12:17:20 magnesium , blood 2024 025 [facility], [address] [place] [address], [id number], 12:17:20 PTH (parathyr oid hormone), intact, serum or plasma 2024 025 [facility], [facility], [address] [place] [address], [id number], 12:17:20 TSH, serum or plasma 2024 025 [facility], [address] [place] [address], [id number], 12:17:20 TSH, serum or plasma 2024 025 [facility], [address] [place] [address], [address], 12:17:20 T4, free, serum 2024 025 [facility], [facility], [address] [place] [address], [id number], 12:17:20 Referral None recorded. Procedures None recorded. Surgeries None recorded. Imaging None recorded. Medication Orders levothyro xine 112 mcg tablet 2024 025 [id number], [address] [place], [address], 17:43:50 Patient TargetsNo targets recorded. Patient Instructions Encounter Date Encounter Id Patient Instructions Last Modified By Organization Details Last Modified Time 10/11/2024 [id number] - Continue to take calcium (2265-5283 mg per day) and vitamin D (2941-6607 units per day). - Consider looking for opportunities for exercise or balance classes to help prevent falls. - Get labs done every 3 months (Cunningham) - Continue taking thyroid hormone every day [...] for 20min visit Discussed CCM- signed 09/2016- jessica [email or web address] Not available 10/11/2024 17:42:03 Reason for [...] 09/05/2011 Hernia Repair completed GREGORIA Shafer [address] [place], [address], [facility] 09/23/2016 16:36:11 09/05/1991 completed GREGORIA Shafer [address] [place], [address], [facility] 09/23/2016 16:34:24 09/05/1988 completed GREGORIA Shafer [address] [place], [address], [facility] 09/23/2016 16:34:29 09/05/1984 completed GREGORIA Shafer [address] [place], [address], [facility] 09/23/2016 16:34:20 Imaging Results None recorded. Procedure Notes None recorded. Medical Equipment None Reported. Allergies Allergen ID Allergen Name Allergen Category Reaction Reaction Severity Criticality Documentation Date Start Date Code Code System Note Provider Name and Address Organization Details Recorded Time 627478 Product containin g penicilli n and antibioti c (product) medicatio n Not available Not available Not available 09/23/2016 96473 05 SNOMED GREGORIA Shafer [address] [facility] [place], [phone], [facility] 7 16:36:43 Medications Name Sig Start Date [...] Not Available Dupixent 300 mg/2 mL subcutaneo pen injector 10/11 completed Not Available Not Available Not Available Vitals Date Recorded Body weight Body mass index (BMI) Body height Provider Name and Address Organization Details Last Updated DateTime 10/11/2024 58085.27 g 19 kg/m2 170.82 cm Merry Forman LPN [facility] 10/11/2024 16:22:10 Social History Question Answer Notes LastModified by Organizat ion Details LastModified Time Tobacco Smoking Status Never Smoker 09/23/16 Yaneth Moraes RN BSN [address] [place] [address], [phone], [facility] 09/23/2016 16:33:43 What Is Your Level Of Alcohol Consumption? Occasional Rarely Information not available 10/11/2024 Which Illicit Or Recreational Drugs Have You Used? None 09/23/16 Information not available 09/23/2016 CCM Consent Discussion 09/23/2016 [email or web address] Information not available 09/24/2016 Do You Use [...] - lung CA Sister is 59- healthy Salu, and Guerita- healthy. Guerita has tachycardia. Medical History No medical history recorded. Gynecological HistoryNo gynecological history recorded. Obstetrics History GPAL:G 0 P 0 0 0 0 Immunizations Vaccine Type Date Status Note Provider Ronal crowell and Address Organization Details Recorded Time SARS-COV-2 (COVID-19) vaccine, UNSPECIFIED 09/05/2020 completed Merry Lively, HEEL SEAT TRIMMER null, [facility] 10/11/2024 16:35:03 SARS-COV-2 (COVID-19) vaccine, UNSPECIFIED 10/26/2020 completed Merry Lively, HEEL SEAT TRIMMER null, [facility] 10/11/2024 16:35:15 Past Encounters Encounter ID Performer Location Encounter Start Date Encounter Closed Date Diagnosis/Indication Diagnosis SNOMED-CT Code Diagnosis ICD10 Code Diagnosis Note [id number] Shane Burciaga MD Endocrino logy, [address] [phone] 10/11/2024 16:17:15 10/12/2024 07:47:01 Osteopenia 431166670 M85.9 Goals are:- Minimize risk for fracture [...] e 1mg) for many years Essential hypertension 25347870 I10 On losartan (25). Also DILT (240) as part of AFib.Also lasix and jardiance (no DM but maybe for heart failure) Thyroid nodule 088250950 E04.1 On exam on right side. Pt. gives hx of benign bx. Can follow clinically but plan to better assess with ultrasound at next visit. History of leukemia 7524 01334 Z85.6 Contribute s to complexity and the need for the circumstan ceci described above. Hypothyroidism 35158819 E03.9 UNCONTROLL EDGOALS:- Optimize thyroid function- Minimize [...] Member ID Slaughter Member ID Guarantor Name 10/11/2024 2 [place] [employer] ([facility]) John Lin [id number] John Lin 10/11/2024 1 [place]IC[place] B[place]: [employer] John Lin [id number] John Lin Notes Date Note Type Note Provider Name and Address Organization Details Recorded Time 5 text/html ThyroidReported bypatient.Previous Evaluation:TSH: (14.6 (09/29)); [...] on/off in past.);anxiety;jittery/n ervous PCP: Chantel Waller BANKING ATTORNEY at [facility]: [address] was Germán (De) [place] (xplant)DERM: [place].HEART: [place]oleo.NEURO: Rossen. (shingles) CC: Thyroid.Started couple of months ago. Started on 25mcg. Then to 50 and then to 75 daily.Told to take 75mcg alternating with 150. long-term current use of steroidessential hypertensionthyroid nodulehistory of leukemiaLV on 09/2016 was new at this time PT states PCP has been managing thyroid but now PCP would like to be evaluated again by Jerzy 09/29PT was recently had a fall and was hospitalized, slipped on a towel . 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 Knows house is too much for one person FAM Hx:Dad 87- brain tumor (GLIA)Mom - lung CASister is 59- healthyBen, and Guerita- healthy. Guerita has tachycardia.10/30; is getting (06/29). nephew getting in 07/30. Previously seen for ongoing steroid therapy and bone density s/p extensive chemo therapy for AML (2008) OSTEOPENIA:BMD@ [facility] (vs 2020)Spine= -2.1 (12/27; -12% vs. 2020);Left total hip= -2.3 (12/27; -13.8% vs. 2020)Left femoral neck= -1.6 (12/27; -9.2% vs. 2020)frax= 13 (major) and 2.5 (hip) In past, [...] marrow xplants. SMOKING: None. Shane Burciaga MD [address] [place] [address], [place], [phone], [facility] Medical [facility] 10/11/2024 17:43:52 OBGyn Episode No OBEpisode recorded.
--- OUTSIDE RECORDS SUMMARY | 2024-10-19 17:46 | XMS_ITS | Data Portability ---
Author Organization [facility] [employer] Address [address] [place] [id number] Care Team Providers Care Systems Software Designer Name Role Phone AASHISH WRAY Referring Provider SHAYLEE JENSEN Primary Care Provider [phone] Assessment Encounter Date Assessment Date Assessment LastModified by Organization Details LastModified Time 05/24/2024 05/24/2024 IMPRESSION: Postherpetic neuralgic continual intense itching in left upper back and posterior lateral shoulder. Medications per patient: Diltiazem, furosemide, acetaminophen as needed, amiodarone, Apixaban 5 mg twice a day, probiotic formula, budesonide, skin cream, cevimeline, eyedrops, duloxetine 60 mg daily, (May 24, 2024: Just recently weaned to 20 mg with plan to direction of addition of Lexapro); famotidine 20 mg daily, folate 1 mg [...] for pain, valacyclovir every 12 hours, niacinamide I can think of two possible directions [...] these by her healthcare providers at the [facility]. In this context, we decided that she will call if she is interested in Botox in which case we will attempt preauthorization. She will also call if she is not interested in Botox but wishes to discuss the medication direction further. >>>>>>>>>>>> LENORE Lin May 24, 2024 Follow-up as needed as detailed above. morris Not available 05/24/2024 14:38:36 09/13/2024 09/13/2024 IMPRESSION: Postherpetic neuralgic continual intense itching in [...] for pain, valacyclovir every 12 hours, niacinamide >>>>>>>>>>>>Connor y 2024 The weakness is a side effect of the Botox. It will go away but it may take up to 3 months or maybe even 4 months. She understands. Physical therapy? w andreh she was in for other reasons? g [...] duloxetine. She would like to do this. >>>>>>>>>>>>[facility] 2023 I can think of two possible [...] her healthcare providers at the [facility]. In this context, we decided that she will call if she is interested in Botox in which case we will attempt preauthorization. She will also call if she is not interested in Botox but wishes to discuss the medication direction further. >>>>>>>>>>>> PLAN John Lin September 13, 2024 Start duloxetine which may help your itching and stabbing pain, and your mood: duloxetine 30 mg capsules: 1 capsule every morning 1 week, 2 capsules every morning 1 week; STOP Lexapro (escitalopram) 20 mg when you start 2 capsules of duloxetine 3 capsules every morning afterwards. duloxetine may occasionally cause side effects of [...] Follow-up 1 month. Florentin Hooper MD PhD [facility] mrossen Not available 09/13/2024 15:54:54 10/16/2024 10/16/2024 IMPRESSION: Postherpetic neuralgic continual intense [...] her changes of medication: Lexapro to duloxetine. >>>>>>>>>>>>Bustermaura y 2024 The weakness is a side [...] duloxetine. She would like to do this. >>>>>>>>>>>>[facility] 2023 I can think of two possible [...] these by her healthcare providers at the [facility]. In this context, we decided that she [...] Follow-up 1 month. Florentin Hooper MD PhD [facility] mrossen Not available 10/16/2024 18:02:20 Plan of Treatment Reminders Order Date Submit Date Provider Last Modified By Organization Details Last Modified Time Details Appointments BOTOX 2024 03:00P Jennifer Hooper MD PhD Not available Not available Not available Lab None recorded. Referral None recorded. Procedures None recorded. Surgeries None recorded. Imaging None recorded. Medication Orders duloxetin e 60 mg capsule,d elayed release 2024 025 [employer]armacy #[id number], [address] [place], [address], 10/16/2024 17:22:59 duloxetin e 30 mg capsule,d elayed release 2024 025 [employer] #[id number], [address] [place], [address], 09/13/2024 15:56:50 Patient TargetsNo targets recorded. Patient Instructions Encounter Date Encounter Id Patient Instructions Last Modified By Organization Details Last Modified Time 05/24/2024 [id number] Discussion acros s issues of diagnoses and management and same day associated chart review and management greater than 50% greater than 60 minutes mrossen Not available 05/24/2024 14:38:56 09/13/2024 [id number] Discussion acros s issues of diagnoses and management and same day associated chart review and management greater than 50% greater than 40 minutes mrossen Not available 09/13/2024 15:55:04 10/16/2024 [id number] Discussion acros s issues of diagnoses and management and same day associated chart review and management greater than 50% greater than 40 minutes mrossen Not available 10/16/2024 17:10:33 Reason for Referral None Reported. Procedures Surgical History Date Name Laterality Status Provider Name and Address Organization Details Recorded Time botulinum injection completed Florentin Hooper MD [address] [place] [address], [id number], [facility] 08/22/2024 17:41:31 Imaging Results None recorded. Procedure [...] Available Not Available Vitals Date Recorded Body height Body mass index (BMI) Body weight Respiratory rate Provider Name and Address Organization Details Last Updated DateTime 05/24/2024 170.18 cm 18.8 kg/m2 56922.08 g 12 /min Dee Vasquez [facility] 05/24/2024 13:15:33 Social History Question Answer Notes LastModified by Organizat ion Details LastModified Time Tobacco Smoking Status Never Smoker Dee Christina parker [facility] 05/24/2024 13:16:06 What Is Your Level Of Alcohol Consumption? Occasional Information not available 05/24/2024 What Is Your Level Of Caffeine Consumption? Moderate Information not available 05/24/2024 What Is The Highest Grade Or Level Of School You Have Completed Or The Highest Degree You Have Received? [id number] Information not available 05/24/2024 Which Of Your Hands Is Dominant? Right Information not available 05/24/2024 Sex: Unknown Functional Status None recorded. Mental Status None recorded. Family History Nothing Reported. Medical History Condition Response Claustrophobia N Hospitalizations N Head Trauma/Injury N High Blood Pressure or Hypertension Y Thyroid Problems N Lung Disease N COPD or emphysema N Brain Tumors N Depression Y Encephalitis N Vitamin B12 deficiency N PTSD N Spine Problems N Heart Attack (ME) N Obstructive Sleep Apnea N Alcoholism N Diabetes N Autoimmune disease N Bleeding Disorder N Arthritis N Tuberculosis N Developmental Problems N Cerebral Palsy N Neck Problems N Cancer N Back Problems N Stroke N Asthma N Heartburn, acid reflux, GERD Y Vitamin D Deficiency N Epilepsy/Seizures N Bipolar Disorder N Sleep Disorder N Hepatitis N Aneurysm N Liver Disease N Heart Disease Y Headaches N Fibromyalgia N Osteoporosis N High Cholesterol or Hyperlipidemia N Kidney Disease Y Gynecological HistoryNo gynecological history recorded. 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 [id number] Florentin Hooper MD [facility] [address] [place] [address] [place] [address] 09/13/2024 14:42:26 09/13/2024 16:42:55 Post-herpetic neuritis 519130403 B02.29 [id number] Florentin Hooper MD [facility] [address] [place] [address] [place] [address] 10/16/2024 17:05:45 10/17/2024 07:51:24 Post-herpetic neuritis 161689280 B02.29 Health Concerns Section Related Observation LastModified by Organization Detai ls LastModified Time None Recorded Concern Status LastModified by Organization Details LastModified Time None Recorded Advance Directives Directive None Recorded Payers Encounter Date Sequence Insurance Name Policy Number Policy Slaughter Covered Member ID Slaughter Member ID Guarantor Name 05/24/2024 2 [place] John Riley [id number] John Lin 05/24/2024 1 [place] [employer] John Riley [id number] John Riley 08/22/2024 2 [place] John Lin [id number] John Lin 08/22/2024 1 [place] John Lin [id number] John Lin 09/13/2024 2 [place] Johnelin Lin [id number] Johnelin Lin 09/13/2024 1 [place] [place] Johnelin Lin [id number] Johnelin Lin 10/16/2024 2 [place] Johnelin Lin [id number] Johnelin Lin 10/16/2024 1 [place] [employer] John Riley [id number] John Lin Notes Date Note Type Note Provider Name and Address Organization Details Recorded Time 05/24/2024 text/html John Lin presents for initial neurology consultation for assessment and management of postherpetic neuralgia, status post ~2021 onset of herpes affecting left upper back and posterolateral shoulder, with subsequent postherpetic neuralgia symptoms of persistent intense itching. ? 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 s table on medication; hypertension good control on medication; neuropathy on gabapentin; postherpetic neuralgia and cervicalgia still suboptimally managed context [facility] and pain management consultations; spinal block has not helped; occasional overflow incontinence, ? She is unaccompanied. >>>>>>>>>>>>Nakul r 2023 presenting symptomotology: In ~2021, ~2 years ago she had onset of pain weakness and rash in left upper back and posterior lateral shoulder. Diagnosis of herpes was made although there was some delay with that diagnosis. The pain was intense, enough so that she was continually crying. The rash resolved. Her weakness has mostly improved with the help of physical therapy. She is able to play tennis again. (She is right-handed but needs her left arm to throw up the ball while surfing.) At some point, there was some improvement in [...] disrupts her ability to focus on daily activities. She has had multiple consultations for additional intervention for her persistent intense itching. One [employer] security consultant performed MRI cervical spine and follow-up [...] from that trial of capsaicin. A third pci security consultant offered antidepressant medications and surgery. She was not interested in those directions. She has been on gabapentin 600 mg twice [...] its current level helps the postherpetic neuralgic discomfort. She has been on duloxetine 60 mg daily for depression but is on a wean, currently at 20 mg, moving toward Lexapro. The reason for the wean and cross titration is that the duloxetine was causing her not to feel right. She has noticed no worsening of her left upper quadrant postherpetic neuralgic discomfort with the reduction of duloxetine. Florentin Hooper MD [address] [place], [place] [address], [phone], [facility] 08/22/2024 16:29:13 08/22/2024 text/html Follow up for regina tox injectinos for postherpetic neuralgia, status post ~2021 onset of herpes affecting left upper back and posterolateral shoulder, with subsequent postherpetic neuralgia symptoms of persistent intense itching.? 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 s table on medication; hypertension good control on medication; neuropathy on gabapentin; postherpetic neuralgia and cervicalgia still suboptimally managed context [facility] and pain management consultations; spinal block has not helped; occasional overflow incontinence,? She is unaccompanied. >>>>>>>>>>>>Nakul 2023 presenting symptomotology:In ~2021, ~2 years ago [...] intervention for her persistent intense itching. One [employer] security consultant performed MRI cervical spine and follow-up [...] from that trial of capsaicin. A third pci security consultant offered antidepressant medications and surgery. She [...] the reduction of duloxetine. Florentin Hooper MD [address] [place] [address] [place], [phone], [facility] 08/22/2024 17:41:45 09/13/2024 text/html Follow up for af ter botox injectinos for postherpetic neuralgia, status post ~2021 onset of herpes affecting left upper back and posterolateral shoulder, with subsequent postherpetic neuralgia symptoms of persistent intense itching.? 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 s table on medication; hypertension good control on medication; neuropathy on gabapentin; postherpetic neuralgia and cervicalgia still suboptimally managed context [facility] and pain management consultations; spinal block has not helped; occasional overflow incontinence,? She is unaccompanied.>>>>>> >>>>>>September 13, 2024Shortly after August 22, 2024 Neurology [...] for switching toward the Lexapro, is gone. >>>>>>>>>>>>Vinicioe r 2023 presenting symptomotology:In ~2021, ~2 years [...] intervention for her persistent intense itching. One [employer] security consultant performed MRI cervical spine and follow-up [...] from that trial of capsaicin. A third pci security consultant offered antidepressant medications and surgery. She [...] the reduction of duloxetine. Florentin Hooper MD [address] [place] [address] [place], [phone], [facility] 09/13/2024 15:57:10 10/16/2024 text/html Follow up for af ter botox injectinos for postherpetic neuralgia, status post ~2022 onset of herpes affecting left upper back and posterolateral shoulder, with subsequent postherpetic neuralgia symptoms of persistent intense itching.? 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 s table on medication; hypertension good control on medication; neuropathy on gabapentin; postherpetic neuralgia and cervicalgia still suboptimally managed context [facility] and pain management consultations; [...] around September 27, 2024, she went to [place] to be with friends and had fun. [...] intervention for her persistent intense itching. One pci security consultant performed MRI cervical spine and follow-up [...] from that trial of capsaicin. A third pci security consultant offered antidepressant medications and surgery. She [...] the reduction of duloxetine. Florentin Hooper MD [address] [place] [address] [place], [phone], [facility] 10/16/2024 18:03:24 OBGyn Episode No OBEpisode recorded.
--- OUTSIDE RECORDS SUMMARY | 2024-10-19 17:46 | XMS_ITS ---
Author Organization [facility] Address [address] [address] Care Team Providers Care Machinist Brake Name Role Phone Shahnaz Monrealanne Primary Care Provider UnavailCORDELIA Crawford Unavailable [phone] Allergies Allergen (clinical drug ingredient) Drug/Non Drug Allergy documented on EMR Reaction Allergy Type Onset Date Status amlodipine Amlodipine Unknown Drug Allergy Activ e amoxicillin Amoxicillin Unknown Drug Allergy Act le lisinopril Lisinopril Unknown Drug Allergy Activ e REASON FOR VISIT Lt foot cyst at the arch Medications Medication SIG (Take, Route, Frequency, Duration) [...] day Active Mupirocin 2 % 1 application Movement Assembly Final Inspector ally Twice a day Active Losartan Potassium [...] Active Encounters Encounter Location Date Provider Diagnosis [facility] [address] [address] 02/01/2024 CORDELIA MELÉNDEZ Plan Of Treatment No Information Progress Notes * John LIN ADOB: [birth year] (69 yo F)Acc No.[id number]:02/01/2024 Consult note Patient:?John LIN Provider:?Cordelia Mcclendon DPM :1955???Age:68 Y???Sex:Female D ate:02/01/2024 Phone: Address:[address] [place], [place] [address]ne [place] MACH-[id number] Pcp:Eva Monreal Subjective: * Chief Complaints: * ???1. Lt foot cyst at the [facility]. 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 * Surgical History:?bone marro w transplant , , dilation and curettage , partial nephrectomy-right renal mass 2012, stapedectomy . * Hospitalization/Major Diagno stic Procedure:? . * Social History:?Tobacco: never Alcohol: yes, occasional. * Medications:?Taking valACYcl ovir HCl 1 GM Tablet 1 tablet Orally [...] directed Orally , Taking Calcium 600+D3 * Allergies:?Amlodipine, Amoxi cillin, Lisinopril. Objective: * Vitals:? Therapeutic Interventions: Assessment: Plan: * Treatment: * Billing Information: * Visit Code:? * Procedure Codes:? * Electronic signature of GE MELÉNDEZ D.P.M. on 10/19/2024 at 05:46 PM EST Sign off status: Pending * Provider:?Cordelia Mcclendon DPM Date:?01/31 Generated for Erendira lizama/Ely/Abdi on:?10/19/2024 05:46 PM EST
--- OUTSIDE RECORDS SUMMARY | 2024-10-19 17:46 | XMS_ITS | Clinical Summary ---
Author Organization [facility] Address [address] [place] [address] Care Team Providers Care Manager Motor Name Role Phone Eva Monreal Primary Care Provider [phone] Allergies Active Allergy Reactions Criticality Noted Date Comments Ceftazidime Rash Low 07/20/2017 Cephalosporins Hives 08/25/2008 skin test pre-pen, pen G, and ceftriaxone on 06/20/2013, were all negative. However, given the low sensitivity of the latter, this patient should be considered cephalosporin (and carbapenem) allergic unless disproved by an suction drum drier operator by way of a graded challenge. skin test pre-pen, pen G, and ceftriaxone on 06/20/2013, were all negative. However, given the low sensitivity of the latter, this patient should be considered cephalosporin (and carbapenem) allergic unless disproved by an suction drum drier operator by way of a graded challenge. Imipenem-Cilastatin [...] History of peripheral stem cell transplant 06/23 Mfluu-ijpycm-ifys disease 03/24/2015 Overview (02/11/2021): IMO update Hypertensive [...] 10/07/2021 1:31 PM EST Plan of Treatment Health Maintenance Due Date Last Done Comments Abhi 1955 Colon Cancer Screening 1955 Colonoscopy 1955 FOBT / Fit Test 1955 Hepatitis C Screening 1955 Sigmoidoscopy 1955 Mammogram 1994 Osteoporosis Screening 2004 Pneumococcal Vaccine: 50+ Years (2 of 2 - PCV) 07/19/2006 07/19/2005 RSV Vaccine (60+ years old and patients) (1 - Risk 60-74 years 1-dose series) 2014 Zoster Vaccines (2 of 2) 06/07/2022 04/12/2022 Basic Metabolic Panel 04/07/2023 04/07/2022 , 11/26/2021, 06/22/2021 COVID-19 Vaccine ( - season) 2024 10/15/2021, 04/19/2021, 11/18/2020, Additional history exists Influenza Vaccine (#1) 2024 , 06/07/2020, 07/01/2019, Additional history exists Alcohol/Substance Use Screening 09/05/2024 Depression Evaluation 09/05/2024 Health Care Proxy Review 09/05/2024 Social Drivers of Health Annual Screening 09/05/2024 DTaP,Tdap,and Td Vaccines (4 - Td or Tdap) 04/23/2025 04/23/2015, 10/05/2010, 11/03/2009 Hepatitis B Vaccines Aged Out No long er eligible based on patient's age to complete this topic Insurance MEDICARE [facility] [place] [id number] Care Teams Manager Motor Relationship Specialty Start Date End Date Eva Monreal [address] [place] [address] PCP - General Internal Medicine 12/12/20
[2024-10-19] MEDS: Acetaminophen 325 MG TABLET 650 MG PO (18:07)
--- NOTE | 2024-10-19 19:47 | PC.NURSE ---
per provider, Ccollar removed. pt ambulated to the bathroom indep
[2024-10-19 19:51] VITALS: BP 143/73; PULSE 79; RESP 20; TEMP 36.8; O2SAT 96
[2024-10-19 20:41] VITALS: BP 134/53; PULSE 72; RESP 18; TEMP 36.9; O2SAT 96
[2024-10-19 20:58] VITALS: BP 134/53; PULSE 72; RESP 18; TEMP 36.9; O2SAT 96
== END 2024-10-19 20:58 | disposition home or self-care (01) ==
PROVIDERS: Emergency Provider Emergency Medicine; PCP Internal Medicine
DX: S00.93XA Contusion of unspecified part of head, initial encounter (principal); M54.2 Cervicalgia; M25.561 Pain in right knee; R51.9 Headache, unspecified; M53.3 Sacrococcygeal disorders, not elsewhere classified; I48.91 Unspecified atrial fibrillation; W10.9XXA Fall (on) (from) unspecified stairs and steps, initial encounter; Y93.9 Activity, unspecified; Y92.007 Garden or yard of unspecified non-institutional (private) residence as the place of occurrence of the external cause; Y99.8 Other external cause status; Z79.01 Long term (current) use of anticoagulants; Z79.899 Other long term (current) drug therapy
CPT/HCPCS: 70450; 72125; 72220; 73564; 99284

== ENCOUNTER → 2024-10-19 17:17 | Outpatient (BNV) | payer MEDICARE, MEDICAID, SELFPAY | PROVIDERS: Emergency Provider Emergency Medicine; PCP Internal Medicine; Visit Provider Radiology Diagnostic Radiology | DX: S09.90XA Unspecified injury of head, initial encounter (principal); G31.89 Other specified degenerative diseases of nervous system; I67.82 Cerebral ischemia; M25.561 Pain in right knee; M54.50 Low back pain, unspecified; W19.XXXA Unspecified fall, initial encounter | CPT/HCPCS: 70450; 72125; 72220; 73564 ==

== ENCOUNTER 2024-11-01 15:36 | Outpatient (AMB) | payer MEDICARE, MEDICAID, SELFPAY ==
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
--- OUTSIDE RECORDS SUMMARY | 2024-11-01 18:58 | XMS_ITS | Encounter Summary ---
Author Organization [facility] Address [address] [place] [address] Care Team Providers Care Painter Maintenance Name Role Phone Eva Monreal Primary Care Provider [phone] Encounter Details Date Type Department Care Team (Late st Contact Info) Description 04/12/2022 Telephone [facility] Central Scheduling Department [address] [place] [id number] Telephone Intake, Staff Social History Tobacco Use [...] on filedocumented in this encounter Care Teams Painter Maintenance Relationship Specialty Start Date End Date Eva Monreal [address] [place] [address] PCP - General Internal Medicine 12/12/20 documented as of this encounter
--- OUTSIDE RECORDS SUMMARY | 2024-11-01 18:58 | XMS_ITS | Clinical Summary ---
Author Organization [facility] Address [address] [place] [address] Care Team Providers Care Retention Manager Name Role Phone Eva Monreal Primary Care Provider [phone] Allergies Active Allergy Reactions Criticality Noted Date Comments Ceftazidime Rash Low 07/20/2017 Cephalosporins Hives 08/25/2008 skin test pre-pen, pen G, and ceftriaxone on 06/20/2013, were all negative. However, given the low sensitivity of the latter, this patient should be considered cephalosporin (and carbapenem) allergic unless disproved by an cribber by way of a graded challenge. skin test pre-pen, pen G, and ceftriaxone on 06/20/2013, were all negative. However, given the low sensitivity of the latter, this patient should be considered cephalosporin (and carbapenem) allergic unless disproved by an cribber by way of a graded challenge. Imipenem-Cilastatin [...] History of peripheral stem cell transplant 06/23 Xzgyd-eiicem-mwke disease 03/24/2015 Overview (02/11/2021): IMO update Hypertensive [...] age to complete this topic Insurance MEDICARE [facility] GÉNESIS [id number] Care Teams Retention Manager Relationship Specialty Start Date End Date Eva Monreal [address] [place] [address] PCP - General Internal Medicine 12/12/20
--- OUTSIDE RECORDS SUMMARY | 2024-11-01 18:58 | XMS_ITS ---
Author Organization [facility] Address [address] [address] Care Team Providers Care Back Order Clerk Name Role Phone Eva Monreal Primary Care Provider MANUEL Agarwal Unavailable [phone] REASON FOR VISIT [facility] referral Encounters Encounter Location Date Provider Diagnosis [facility] [address] [address] 02/02/2024 MANUEL MELÉNDEZ Plan Of Treatment No Information Progress Notes * John LIN ADOB: (68 yo F)Acc No.[id number]:02/02/2024 Patient:?John LIN :1955???Age:68 Y???Sex:Female Phone: Address:[address] [place] [id number] * true * Date:? Generated for Erendira lizama/Ely/eTransmitting on:?11/01/2024 06:57 PM EST
--- OUTSIDE RECORDS SUMMARY | 2024-11-01 18:58 | XMS_ITS | Referral Summary ---
Author Organization [facility] Address [address] [place] [address] Care Team Providers Care Component Engineer Name Role Phone Eva Monreal Primary Care Provider [phone] Allergies Active Allergy Reactions Criticality Noted Date Comments Ceftazidime Rash Low 07/20/2017 Cephalosporins Hives 08/25/2008 skin test pre-pen, pen G, and ceftriaxone on 06/20/2013, were all negative. However, given the low sensitivity of the latter, this patient should be considered cephalosporin (and carbapenem) allergic unless disproved by an veteran appeals reviewer by way of a graded challenge. skin test pre-pen, pen G, and ceftriaxone on 06/20/2013, were all negative. However, given the low sensitivity of the latter, this patient should be considered cephalosporin (and carbapenem) allergic unless disproved by an veteran appeals reviewer by way of a graded challenge. Imipenem-Cilastatin [...] History of peripheral stem cell transplant 06/23 Oizxr-zknjtz-zpud disease 03/24/2015 Overview (02/11/2021): IMO update Hypertensive [...] of Treatment Not on file Insurance MEDICARE [facility] Care Teams Component Engineer Relationship Specialty Start Date End Date Eva Monreal [address] [place] [id number] PCP - General Internal Medicine 12/12/20
--- OUTSIDE RECORDS SUMMARY | 2024-11-01 18:58 | XMS_ITS | Clinical Summary ---
Author Organization [facility] Address [address] [place] [address] Care Team Providers Care Sugarcane Research Technician Name Role Phone Unavailable Primary Care Provider [...]
--- OUTSIDE RECORDS SUMMARY | 2024-11-01 18:58 | XMS_ITS | Patient Health Record ---
Author Organization [facility] Address [address] [address] Care Team Providers Care Placement Officer Name Role Phone Eva Monreal Primary Care Provider Unavailabl e MANUEL MELÉNDEZ Unavailable [phone] Allergies Allergen (clinical drug ingredient) Drug/Non Drug [...] extremity veno us stasis (I87.8) Referral Organization [facility] Referring Provider First [...] needed Orally Once a day Active Nystatin-Triamcinolone 505965-8.1 UNIT/GM 1 application Externally Twice a day Active Fluorouracil 5 % 1 application Industrial Nurse ally Twice a day Active oxyCODONE HCl 5 MG 2 tablets as needed Orally every 4 hrs Active Probiotic Active Multivitamin - 1 tablet Orally Once a day Active Tacrolimus 0.1 % 1 application Industrial Nurse ally Once a day Active Mupirocin 2 % 1 application Industrial Nurse ally Twice a day Active Tretinoin 0.025 [...] Orally Active Mupirocin 2 % 1 application Industrial Nurse ally Twice a day Active Niacinamide 500 MG 1 tablet Orally Once a day Active Nystatin 530479 UNIT/ML 4 mL Mouth/Throa t Four times a day Active Furosemide 20 MG 1 tablet Orally Once a day Active Ciclopirox 8 % 1 application Industrial Nurse ally to toenail Once a day for [...] Problem Status W/U Status Risk Notes Problem [id number] 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 Vital Signs Heart Rate 63 /min 02/01/2024 Temperature 97.5 degrees Fahrenheit 02/01/2024 Respiratory Rate 16 /min 02/01/2024 Height 5ft 7in in 02/01/2024 Weight 120.9 lbs 02/01/2024 BMI 18.93 kg/m2 02/01/2024 Encounters Encounter Location Date Provider Diagnosis [facility] [address] 02/01/2024 MANUEL MELÉNDEZ Accessory navicular bone of left foot Q74.2 ; Bony prominence palpable in left ankle M89.8X7 ; Onychomycosis B35.1 ; Lower extremity venous stasis I87.8 and Edema of left lower extremity due to peripheral venous insufficiency I87.2 [facility] [address] 01/04/2024 MANUEL MEDHAT [facility] [address] 01/24/2024 MANUEL MEDHAT [facility] [address] 02/02/2024 MANUEL MELÉNDEZ Assessments Encounter Date [...] venous insufficiency. She has been seeing a Fuel Truck Driver. 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 I have placed a referral with [facility] to see if there is a venous [...] of [place] [address] [place] [phone] [id number] John Lin Self - patient is the [...]
--- OUTSIDE RECORDS SUMMARY | 2024-11-01 18:58 | XMS_ITS | Continuity of Care Document ---
Author Organization formerly [facility] Address [address] [facility] [place] [address] Care Team Providers Care Roller Inspector Name Role Phone AASHISH WRAY Referring Provider [phone] SHAYLEE JENSEN Primary Care Provider Assessment Encounter [...] duloxetine. She would like to do this. >>>>>>>>>>>>[facility] 2023 I can think of two possible [...] her healthcare providers at the [facility]. In this context, we decided that she [...] Follow-up 1 month. Florentin Hooper MD PhD [facility] mrradha Not available 10/16/2024 18:02:20 Plan [...] 60 mg capsule,d elayed release 2024 025 [facility]/Pharmacy #[id number], [address] [place], [address], 10/16/2024 17:22:59 Patient TargetsNo targets recorded. Patient Instructions Encounter Date Encounter Id Patient Instructions Last Modified By Organization Details Last Modified Time 10/16/2024 [id number] Discussion acros s issues of diagnoses and management and same day associated chart review and management greater than 50% greater than 40 minutes mrossen Not available 10/16/2024 17:10:33 Reason for Referral None Reported. Procedures Surgical History Date Name Laterality Status Provider Name and Address Organization Details Recorded Time 4 botulinum injection completed Florentin Hooper MD [address] [place] [address] [place], [id number], [facility] 08/22/2024 17:41:31 Imaging Results None recorded. Procedure [...] No t Available oxycodone 5 mg tablet PLEASE SEE ATTACHED FOR DETAILED DIRECTION S [...] Available duloxetine 60 mg capsule,del ayed release TAKE 1 CAP AT 7AM AND 1 CAP AT 2PM active Not Available Not Available No t Available pregabalin 50 mg capsule TAKE 1 [...] Tobacco Smoking Status Never Smoker Dee parker formerly [facility] 05/24/2024 13:16:06 What Is Your Level Of Alcohol Consumption? Occasional Information not available 05/24/2024 What Is Your Level Of Caffeine Consumption? Moderate Information not available 05/24/2024 What Is The Highest Grade Or Level Of School You Have Completed Or The Highest Degree You Have Received? [id number] Information not available 05/24/2024 Which Of Your Hands Is Dominant? Right Information not available 05/24/2024 Sex: Unknown Functional Status None recorded. Mental Status None recorded. Family History Nothing Reported. Medical History Condition Response Claustrophobia N Head Trauma/Injury N Hospitalizations N High Blood Pressure or Hypertension Y Thyroid Problems N Depression Y Brain Tumors N Lung Disease N COPD or emphysema N Encephalitis N PTSD N Vitamin B12 deficiency N Heart Attack (DE) N Spine Problems N Obstructive Sleep Apnea [...] SNOMED-CT Code Diagnosis ICD10 Code Diagnosis Note [id number] Florentin Hooper MD [facility] [address] [place] [address] [place] [address] 10/16/2024 17:05:45 10/17/2024 07:51:24 Post-herpetic neuritis [id number] B02.29 Health Concerns Section Related Observation LastModified by Organization Detai ls LastModified Time None Recorded Concern Status LastModified by Organization Details LastModified Time None Recorded Payers Encounter Date Sequence Insurance Name Policy Number Policy Slaughter Covered Member ID Slaughter Member ID Guarantor Name 10/16/2024 2 MEDICAID-[place]: [facility] John Lin [id number] John Lin 10/16/2024 1 [place] [employer] John Lin [id number] John Lin Notes Date Note Type Note [...] post for bone marrow transplant, followed at [facility]; depression? s table on medication; hypertension good control on medication; neuropathy on gabapentin; postherpetic neuralgia and cervicalgia still suboptimally managed context [facility] and pain management consultations; [...] around September 27, 2024, she went to [place] to be with friends and had fun. [...] intervention for her persistent intense itching. One quality compliance consultant performed MRI cervical spine and follow-up [...] from that trial of capsaicin. A third quality compliance consultant offered antidepressant medications and surgery. She [...] the reduction of duloxetine. Florentin Hooper MD [address] [place] [address] [place], [address], [facility] 10/16/2024 18:03:24 OBGyn Episode No OBEpisode recorded.
--- OUTSIDE RECORDS SUMMARY | 2024-11-01 18:58 | XMS_ITS ---
Author Organization [facility] Address [address] [address] Care Team Providers Care Plug Assembler Name Role Phone Eva Monreal Primary Care Provider Unavailabl e CORDELIA MELÉNDEZ Unavailable [phone] Allergies Allergen (clinical drug ingredient) Drug/Non Drug [...] extremity veno us stasis (I87.8) Referral Organization [facility] Referring Provider First Name CORDELIA Referring Provider Last Name MEDHAT Referring Provider Speciality Podiatry Referred Provider Specialty Intervention al Radiology Referral Priority Routine REASON FOR VISIT bump in left arch, left great toenail issue, rash on leg. Medications Medication SIG (Take, Route, Frequency, Duration) Notes Start Date End Date Status Ciclopirox 8 % 1 application Telehealth Coordinator ally to toenail Once a day [...] Dental Active Fluorouracil 5 % 1 application Telehealth Coordinator ally Twice a day Active Folic Acid [...] day Active Mupirocin 2 % 1 application Telehealth Coordinator ally Twice a day Active Nystatin-Triamcinolone 092870-4.1 UNIT/GM 1 application Externally Twice a day Active oxyCODONE HCl 5 MG 2 tablets as needed Orally every 4 hrs Active Probiotic Active Niacinamide 500 MG 1 tablet Orally Once a day Active Nystatin 489058 UNIT/ML 4 mL Mouth/Throa t Four times a day Active Tacrolimus 0.1 % 1 application Telehealth Coordinator ally Once a day Active Tretinoin 0.025 % 1 application in the evening to face Externally Once a day Active Valtrex 500 MG 1 tablet Orally Once a day Active Problems Problem Type SNOMED Code ICD Code Onset Dates Problem Status W/U Status Risk Notes Problem [id number] 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 She has been seeing a Planning And Analysis Manager. 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 I have placed a referral with [facility] to see if there is a venous component. She will continue her follow ups with dermatology as well. 02/01/2024 Edema of left lower extremity due to peripheral venous insufficiency (ICD-10 - I87.2) Plan Of Treatment Medication Medication Name Sig Start Date Stop Date Notes Ciclopirox 8 % 1 application Telehealth Coordinator ally to toenail Once a day [...] venous insufficiency. She has been seeing a Planning And Analysis Manager. 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 I have placed a referral with [facility] to see if there is a venous component. She will continue her follow ups with dermatology as well. Pending Test Test Name Order Date X ray : Foot, left 3v 02/01/2024 Referrals Referral Date Details 02/01/2024 02/01/2024, Left low er extremity venous stasis dermatitis changes with edema. ? venous reflux Progress Notes * John LIN ADOB: [birth year] (68 yo F)Acc No.[id number]:02/01/2024 Consult note Patient:?John LIN A Provider:?Cordelia Mcclendon DPM :1955???Age:68 Y???Sex:Female D ate:02/01/2024 Phone: Address:[address] [place] [address] [phone] Pcp:Eva Monreal Subjective: * [...] few months. She has been seeing a foamite mixer in [place] who has been giving her topical treatments. [...] to follow closely with Gabri[facility]uman in [place]. * ROS:?General/Constitutional:?Denies?Chills.?Denies?Fatigue.?Denies?Fever.?Denies?Headache.?Allergy/Immunology:?Denies?Hives.?Denies?Itching.?Denies?Rash.?Endocrine:?Denies?Excessive sweating.?Denies?Excessive thirst.?Denies?Frequent urination.?Respiratory:?Denies?Cough.?Denies?Shortness of breath,?denies.?Denies?Wheezing.?Cardiovascular:?Denies?Chest [...] as needed Orally every 4 hrs Nystatin-Triamcinolone 745574-0.1 UNIT/GM Cream 1 application Externally Twice a day Nystatin 846928 UNIT/ML Suspension 4 mL Mouth/Throat Four times [...] Orally every 4 hrs Taking Nystatin- Triamcinolone 119475-5.1 UNIT/GM Cream 1 application Externally Twice a day Taking Nystatin 942194 UNIT/ML Suspension 4 mL Mouth/Throat Four times [...] venous insufficiency. She has been seeing a Planning And Analysis Manager. 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 I have placed a referral with [facility] to see if there is a venous [...] radio opaque foreign bodies. ? * Procedure Codes:?30860 X-RAY EXAM OF FOOT 3 Views, Modifiers: LT * Billing Information: * Visit Code:? 77766 Office Visit, New Pt., Level 3. * Procedure Codes:? 89464 X-RAY EXAM OF FOOT 3 Views. Modifiers: LT * Sign off status: Completed true * Provider:?Cordelia Mcclendon DP Date:?01/31 Generated for Erendira lizama/Ely/Kathleenitting on:?11/01/2024 06:58 PM EST History and Physical Notes * [...]
--- OUTSIDE RECORDS SUMMARY | 2024-11-01 18:58 | XMS_ITS | Continuity of Care Document ---
Author Organization [facility], Endocrinology, [facility] Address [address] [place] [address] Care Team Providers Care Wringer And Setter Name Role Phone CAMILA SHAYLEE Primary Care Provider Assessment Encounter Date Assessment [...] D, 25-hydrox y, total, serum 2024 025 [facility], [address] [place] [address], [address], 12:17:20 renal function panel, serum 2024 025 [facility], [address] [place] [address], [address], 12:17:20 magnesium , blood 2024 025 [facility], [address] [place] [address], [address], 12:17:20 PTH (parathyr oid hormone), intact, serum or plasma 2024 025 [facility], [address] [place] [address], [address], 12:17:20 TSH, serum or plasma 2024 025 [facility], [address] [place] [address], [address], 12:17:20 TSH, serum or plasma 2024 025 [facility], [address] [place] [address], [address], 12:17:20 T4, free, serum 2024 025 [facility], [address] [place] [address], [address], 12:17:20 Referral None recorded. Procedures None recorded. Surgeries None recorded. Imaging None recorded. Medication Orders levothyro xine 112 mcg tablet 2024 025 [facility]/Pharmacy #[id number], [address] [place], [address], 17:43:50 Patient TargetsNo targets recorded. Patient Instructions Encounter Date Encounter Id Patient Instructions Last Modified By Organization Details Last Modified Time 10/11/2024 [id number] - Continue to take calcium (0570-8588 mg per day) and vitamin D (5829-4908 units per day). - Consider looking for opportunities for exercise or balance classes to help prevent falls. - Get labs done every 3 months (Boss) - Continue taking thyroid hormone every day [...] 09/05/2011 Hernia Repair completed GREGORIA Shafer [address] [place], [address], [facility] 09/23/2016 16:36:11 09/05/1991 completed GREGORIA Shafer [address] [place], [address], [facility] 09/23/2016 16:34:24 09/05/1988 completed GREGORIA Shafer [address] [place], [address], [facility] 09/23/2016 16:34:29 09/05/1984 completed GREGORIA Shafer [address] [place], [address], [facility] 09/23/2016 16:34:20 Imaging Results None recorded. Procedure Notes None recorded. Medical Equipment None Reported. Allergies Allergen ID Allergen Name Allergen Category Reaction Reaction Severity Criticality Documentation Date Start Date Code Code System Note Provider Name and Address Organization Details Recorded Time 317284 Product containin g penicilli n (product) medicatio n Not available Not available Not available 09/23/2016 05408 4312 SNOMED GREGORIA Shafer [address] [facility], [place], [address], [facility] 7 16:36:43 Medications Name Sig Start Date [...] Not Available levothyrox ine 112 mcg tablet TAKE 1 TABLET BY [...] 60 mg capsule,de layed release TAKE 1 CAP AT 7AM AND [...] Address Organization Details Last Updated DateTime 10/11/2024 22448.27 g 19 kg/m2 170.82 cm Merry Forman LPN [facility] 10/11/2024 16:22:10 Social History Question Answer Notes LastModified by Organizat ion Details LastModified Time Tobacco Smoking Status Never Smoker 09/23/16 Yaneth Moraes TRADING ASSISTANT [address] [place] [address], [phone], [facility] 09/23/2016 16:33:43 What Is Your Level Of [...] Vaccine Type Date Status Note Provider Nam mervat and Address Organization Details Recorded Time SARS-COV-2 (COVID-19) vaccine, UNSPECIFIED 09/05/2020 completed Merry Liveadin, [employer] null, [facility] 10/11/2024 16:35:03 SARS-COV-2 (COVID-19) vaccine, UNSPECIFIED 10/26/2020 completed Merry Liveadin, [employer] null, [facility] 10/11/2024 16:35:15 Past Encounters Encounter ID Performer Location Encounter Start Date Encounter Closed Date Diagnosis/Indication Diagnosis SNOMED-CT Code Diagnosis ICD10 Code Diagnosis Note [id number] Shane Burciaga MD Endocrino logy, [address] [address] 10/11/2024 16:17:15 10/12/2024 07:47:01 Osteopenia 047852853 M85.9 Goals are:- Minimize risk for fracture [...] e 1mg) for many years Essential hypertension 77181619 I10 On losartan (25). Also DILT (240) as part of AFib.Also lasix and jardiance (no DM but maybe for heart failure) Thyroid nodule 764017338 E04.1 On exam on right side. Pt. gives hx of benign bx. Can follow clinically but plan to better assess with ultrasound at next visit. History of leukemia 5249 15609 Z85.6 Contribute s to complexity and the need for the circumstan ceci described above. Hypothyroidism 16611719 E03.9 UNCONTROLL EDGOALS:- Optimize thyroid function- Minimize [...] Member ID Guarantor Name 10/11/2024 2 [place] [facility] John Lin [id number] John Lin 10/11/2024 1 [place] [employer] John Lin [id number] John Lin Notes Date Note Type Note [...] on/off in past.);anxiety;jittery/n ervous PCP: Chantel Waller TRANSPORTATION ATTENDANT at [facility]: [address] was Germán (De) Zaria (xplant)DERM: [place].HEART: [place].NEURO: [place]. (shingles) CC: Thyroid.Started couple of [...] was hospitalized, slipped on a towel . 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 exercise is tennis and jogging and yoga and walking. 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 Knows house is too much for one [...] 2020);Left total hip= -2.3 (12/27; -13.8% vs. 2019)Left femoral neck= -1.6 (12/27; -9.2% vs. 2019)frax= [...] marrow xplants. SMOKING: None. Shane Burciaga MD [address] [place] [address], [place], [address], [facility] 10/11/2024 17:43:52 OBGyn Episode No OBEpisode recorded.
--- OUTSIDE RECORDS SUMMARY | 2024-11-01 18:58 | XMS_ITS | Encounter Summary ---
Author Organization [facility] Address [address] [place] [address] Care Team Providers Care Rn Cvicu Name Role Phone Eva Monreal Primary Care Provider [phone] Reason for Visit * Reason Onset Date Comments Appointment Rescheduling 02/15/2022 Encounter Details Date Type Department Care Team ([facility] Contact Info) Description 02/15/2022 Telephone [facility] Central Scheduling Department [address] [place] [address] Telephone Intake, Staff Appointment Rescheduling Social History [...] on filedocumented in this encounter Care Teams Rn Cvicu Relationship Specialty Start Date End Date Eva Monreal [address] [place] [address] PCP - General Internal Medicine 12/12/20 documented as of this encounter
--- OUTSIDE RECORDS SUMMARY | 2024-11-01 18:59 | XMS_ITS | Data Portability ---
Author Organization [facility] [employer] Address [address] [place] [address] Care Team Providers Care Travel Attendants Name Role Phone AASHISH WRAY Referring Provider [phone] SHAYLEE JENSEN Primary Care Provider Assessment Encounter [...] these by her healthcare providers at the [facility]. In this context, we decided that she [...] duloxetine. She would like to do this. >>>>>>>>>>>>[facility] 2023 I can think of two [...] her healthcare providers at the [facility]. In this context, we decided that she [...] Follow-up 1 month. Florentin Hooper MD PhD Laura neurology mrossen Not available 09/13/2024 15:54:54 10/16/2024 [...] duloxetine. She would like to do this. >>>>>>>>>>>>[facility] 2023 I can think of two [...] these by her healthcare providers at the [facility]. In this context, we decided that she [...] Follow-up 1 month. Florentin Hooper MD PhD Laura neurology mrossen Not available 10/16/2024 18:02:20 Plan [...] 60 mg capsule,d elayed release 2024 025 [facility]/Pharmacy #[id number], [address] [place], [address], 10/16/2024 17:22:59 duloxetin e 30 mg capsule,d elayed release 2024 025 [facility]armacy #[id number], [address] [place], [address], 09/13/2024 15:56:50 Patient TargetsNo targets recorded. Patient Instructions Encounter Date Encounter Id Patient Instructions Last Modified By Organization Details Last Modified Time 05/24/2024 [id number] Discussion acros s issues of diagnoses and management and same day associated chart review and management greater than 50% greater than 60 minutes mrossen Not available 05/24/2024 14:38:56 09/13/2024 [id number] Discussion acros s issues of diagnoses and management and same day associated chart review and management greater than 50% greater than 40 minutes mrossen Not available 09/13/2024 15:55:04 10/16/2024 [id number] Discussion acros s issues of diagnoses and management and same day associated chart review and management greater than 50% greater than 40 minutes mrossen Not available 10/16/2024 17:10:33 Reason for Referral None Reported. Procedures Surgical History Date Name Laterality Status Provider Name and Address Organization Details Recorded Time botulinum injection completed Florentin Hooper MD [address] [place] [address], [address], [facility] 08/22/2024 17:41:31 Imaging Results None recorded. [...] Updated DateTime 05/24/2024 170.18 cm 18.8 kg/m2 36368.08 g 12 /min Dee [place] [facility] 05/24/2024 13:15:33 Social History Question Answer Notes LastModified by Organizat ion Details LastModified Time Tobacco Smoking Status Never Smoker Dee Vasquez elena [facility] 05/24/2024 13:16:06 What Is Your Level Of Alcohol Consumption? Occasional Information not available 05/24/2024 What Is Your Level Of Caffeine Consumption? Moderate Information not available 05/24/2024 What Is The Highest Grade Or Level Of School You Have Completed Or The Highest Degree You Have Received? 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 [id number] Florentin Hooper MD [facility] [address] [place] [address] [place] [address] 09/13/2024 14:42:26 09/13/2024 16:42:55 Post-herpetic neuritis 620170199 B02.29 [id number] Florentin Hooper MD [facility] [address] [place] [address] [place] [address] 10/16/2024 17:05:45 10/17/2024 07:51:24 Post-herpetic neuritis 740138663 B02.29 Health Concerns Section Related Observation LastModified by Organization Detai ls LastModified Time None Recorded Concern Status LastModified by Organization Details LastModified Time None Recorded Advance Directives Directive None Recorded Payers Encounter Date Sequence Insurance Name Policy Number Policy Slaughter Covered Member ID Slaughter Member ID Guarantor Name 05/24/2024 2 [place] John Lin [id number] John Lin 05/24/2024 1 [place] [employer] Johnelin Lin [id number] John Lin 08/22/2024 2 [place] John Lin [id number] John Lin 08/22/2024 1 [place] [employer] Johnelin Lin [id number] John Riley 09/13/2024 2 [place] John Riley [id number] John Lin 09/13/2024 1 [place] [employer] Johnelin Lin [id number] John Lin 10/16/2024 2 [place] Johnelin Lin [id number] John Lin 10/16/2024 1 [place] [employer] John Riley [id number] John Lin Notes Date Note Type Note [...] post for bone marrow transplant, followed at [facility]; depression? s table on medication; hypertension good control on medication; neuropathy on gabapentin; postherpetic neuralgia and cervicalgia still suboptimally managed context [facility] and pain management consultations; [...] intervention for her persistent intense itching. One oracle ascp consultant performed MRI cervical spine and follow-up [...] from that trial of capsaicin. A third oracle ascp consultant offered antidepressant medications and surgery. She [...] the reduction of duloxetine. Florentin Hooper MD [address] [place] [address] [place], [address], [facility] 08/22/2024 16:29:13 08/22/2024 text/html Follow up for regina tox injectinos for postherpetic neuralgia, status post ~2021 onset of herpes affecting left upper back and posterolateral shoulder, with subsequent postherpetic neuralgia symptoms of persistent intense itching.? 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 s table on medication; hypertension good control on medication; neuropathy on gabapentin; postherpetic neuralgia and cervicalgia still suboptimally managed context [facility] and pain management consultations; [...] intervention for her persistent intense itching. One oracle ascp consultant performed MRI cervical spine and follow-up [...] from that trial of capsaicin. A third oracle ascp consultant offered antidepressant medications and surgery. She [...] the reduction of duloxetine. Florentin Hooper MD [address] [place] [address] [place], [address], [facility] 08/22/2024 17:41:45 09/13/2024 text/html Follow up for af ter botox injectinos for postherpetic neuralgia, status post ~2021 onset of herpes affecting left upper back and posterolateral shoulder, with subsequent postherpetic neuralgia symptoms of persistent intense itching.? 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 s table on medication; hypertension good control on medication; neuropathy on gabapentin; postherpetic neuralgia and cervicalgia still suboptimally managed context [facility] and pain management consultations; [...] intervention for her persistent intense itching. One oracle ascp consultant performed MRI cervical spine and follow-up [...] from that trial of capsaicin. A third oracle ascp consultant offered antidepressant medications and surgery. She [...] the reduction of duloxetine. Florentin Hooper MD [address] [place] [address] [place], [address], [facility] 09/13/2024 15:57:10 10/16/2024 text/html Follow up for af ter botox injectinos for postherpetic neuralgia, status post ~2021 onset of herpes affecting left upper back and posterolateral shoulder, with subsequent postherpetic neuralgia symptoms of persistent intense itching.? 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 s table on medication; hypertension good control on medication; neuropathy on gabapentin; postherpetic neuralgia and cervicalgia still suboptimally managed context [facility] and pain management consultations; [...] around September 27, 2024, she went to [place] to be with friends and had fun. [...] intervention for her persistent intense itching. One oracle ascp consultant performed MRI cervical spine and follow-up [...] from that trial of capsaicin. A third oracle ascp consultant offered antidepressant medications and surgery. She [...] the reduction of duloxetine. Florentin Hooper MD [address] [place] [address] [place], [address], [facility] 10/16/2024 18:03:24 OBGyn Episode No OBEpisode recorded.
--- OUTSIDE RECORDS SUMMARY | 2024-11-01 18:59 | XMS_ITS ---
Author Organization [facility] Address [address] [address] Care Team Providers Care Television Antenna Installer Name Role Phone Shahnaz Monrealanne Primary Care Provider UnavailCORDELIA Crawford Unavailable [phone] Allergies Allergen (clinical drug ingredient) Drug/Non Drug [...] day Active Mupirocin 2 % 1 application Director Of Radiology ally Twice a day Active Losartan Potassium [...] Active Encounters Encounter Location Date Provider Diagnosis [facility] [address] [address] 02/01/2024 CORDELIA MELÉNDEZ Plan Of Treatment No Information Progress Notes * John LIN ADOB: [birth year] (69 yo F)Acc No.[id number]:02/01/2024 Consult note Patient:?John LIN Provider:?Cordelia Mcclendon DPM :1955???Age:68 Y???Sex:Female D ate:02/01/2024 Phone: Address:[address] [place], [place] [address]ne [place] MATD-[id number] Pcp:Eva Monreal Subjective: * Chief Complaints: * ???1. [facility]. * Medical History:?Acute myelo blastic leukemia in [...] Electronic signature of GE MELÉNDEZ D.P.M. on 11/01/2024 at 06:58 PM EST Sign off status: Pending * Provider:?Cordelia Mcclendon DPM Date:?01/31 Generated for Erendira lizama/Ely/Abdi on:?11/01/2024 06:58 PM EST
--- OUTSIDE RECORDS SUMMARY | 2024-11-01 18:59 | XMS_ITS | Data Portability ---
Author Organization [facility], [facility]LY [facility] Address [address] [place] [address] Care Team Providers Care Drop Wire Operator Name Role Phone SHAYLEE JENSEN Primary Care [...] and at end of visit (190/115 by or)- start losartan. BMD Results: Spine: -1.0 (2015); was -2.2 (2009) Left femoral neck= -2.0 (07/21)- was -1.8 (2009); Total hip= -1.3 (07/2016); was -1.8 (2009) PCP is Erwin Gavin. Team at [facility] is: TERESE Desir (Darron Enciso (xplant) ID [...] D, 25-hydrox y, total, serum 2024 025 [facility], [address] [place] [address], [id number], 12:17:20 renal function panel, serum 2024 025 [facility], [address] [place] [address], [address], 12:17:20 magnesium , blood 2024 025 [facility], [address] [place] [address], [address], 12:17:20 PTH (parathyr oid hormone), intact, serum or plasma 2024 025 [facility], [address] [place] [address], [id number], 12:17:20 TSH, serum or plasma 2024 025 [facility], [address] [place] [address], [place], [address], 12:17:20 TSH, serum or plasma 2024 025 [facility], [address] [place] [address], [id number], 12:17:20 T4, free, serum 2024 025 [facility], [address] [place] [address], [address], 12:17:20 Referral None recorded. Procedures None recorded. Surgeries None recorded. Imaging None recorded. Medication Orders levothyro xine 112 mcg tablet 2024 025 [id number], [address] [place], [address], 17:43:50 losartan 100 mg tablet 2016 017 [email or web address], [address] [place], [address], 16:30:16 Patient TargetsNo targets recorded. Patient Instructions Encounter Date Encounter Id Patient Instructions Last Modified By Organization Details Last Modified Time 09/23/2016 [id number] Discussed CCM- signed 09/2016- [facility] sstuartchipkin Not available 09/24/2016 14:58:51 10/11/2024 [id number] - Continue to take calcium (9132-3080 mg per day) and vitamin D (7335-8248 units per day). - Consider looking for opportunities for exercise or balance classes to help prevent falls. - Get labs done every 3 months ([place]) - Continue taking thyroid hormone every day [...] for 20min visit Discussed CCM- signed 09/2016- [facility] sstuartchipkin Not available 10/11/2024 17:42:03 Reason for [...] 09/05/2011 Hernia Repair completed GREGORIA Shafer [address] [place], [address], [facility] 09/23/2016 16:36:11 09/05/1991 completed GREGORIA Shafer [address] [place], [address], [facility] 09/23/2016 16:34:24 09/05/1988 completed GREGORIA Shafer [address] [place], [address], [facility] 09/23/2016 16:34:29 09/05/1984 completed GREGORIA Shafer [address] [place], [address], [facility] 09/23/2016 16:34:20 Imaging Results Imaging Date Name [...] Time [id number] Product containin g penicilli n (product) medicatio n Not available Not available Not available 09/23/2016 75675 8001 SNOMED GREGORIA Shafer [address], [facility]ated [facility] [place], [address], [facility] 7 16:36:43 Medications Name Sig Start Date [...] Address Organization Details Last Updated DateTime 7 90930.7 1 g 173.36 cm 21.6 kg/m2 76 /min 176 mm[Hg] 84 mm[Hg] Yaneth Moraes RN BSN [address] [place], [address], [facility] 7 16:45:02 Date Recorded Body weight Body mass index (BMI) Body height Provider Name and Address Organization Details Last Updated DateTime 10/11/2024 80032.27 g 19 kg/m2 170.82 cm Merry Forman LPN [facility] 10/11/2024 16:22:10 Social History Question Answer Notes LastModified by Organizat ion Details LastModified Time Tobacco Smoking Status Never Smoker 09/23/16 Yaneth Moraes RN BSN [address] [place], [address], [facility] 09/23/2016 16:33:43 What Is Your Level Of [...] Time SARS-COV-2 (COVID-19) vaccine, UNSPECIFIED 09/05/2020 completed URSULA Hudson, [facility] 10/11/2024 16:35:03 SARS-COV-2 (COVID-19) vaccine, UNSPECIFIED 10/26/2020 completed URSULA Hudson, [facility] 10/11/2024 16:35:15 Past Encounters Encounter ID Performer Location Encounter Start Date Encounter Closed Date Diagnosis/Indication Diagnosis SNOMED-CT Code Diagnosis ICD10 Code Diagnosis Note [id number] Shane Burciaga MD [facility], [address] [address] 09/23/2016 16:23:17 09/27/2016 15:34:09 Osteopenia 269406828 M85.9 BMD from 07/2016 has FRAX scores [...] bone density. Long-term current use of steroid 606648541 Z79.52 Low dose of prednisone raises the [...] discussing with ID. History of leukemia 1614 75406 Z85.6 Contribute s to complexity and the need for the circumstan ceci described above. Essential hypertension 40404522 I10 BP 190/115 at end of visit. Suggest she take losartan. Thyroid nodule 742011068 E04.1 On exam on right side. Pt. gives hx of benign bx. Can follow clinically but plan to better assess with ultrasound at next visit. Skin ulcer 37358960 L98. 499 Right medial malleolus in site of MOHS procedure. Looks to be stage III with concern because of presence of odor and some erythema at perimeter. No streaking. No discharge but has (+) odor.Pt. in touch with [facility] providers to arrange follow-up. [id number] Shane Burciaga MD Endocrino logy, [address] [address] 10/11/2024 16:17:15 10/12/2024 07:47:01 Osteopenia 408456874 M85.9 Goals are:- Minimize risk for fracture [...] e 1mg) for many years Essential hypertension 56041702 I10 On losartan (25). Also DILT (240) as part of AFib.Also lasix and jardiance (no DM but maybe for heart failure) Thyroid nodule 680986766 E04.1 On exam on right side. Pt. gives hx of benign bx. Can follow clinically but plan to better assess with ultrasound at next visit. History of leukemia 1614 23398 Z85.6 Contribute s to complexity and the need for the circumstan ceci described above. Hypothyroidism 51891915 E03.9 UNCONTROLL EDGOALS:- Optimize thyroid function- Minimize [...] Guarantor Name 09/23/2016 1 [place]IC[place] B[place]ATIONAL [employer] John Lin [id number] John Lin 09/23/2016 2 [place] [facility]) John Lin [id number] John Lin 10/11/2024 2 [place] [facility] John Lin [id number] John Lin 10/11/2024 1 [place]IC[place]: [employer] John Lin [id number] John Lin Notes Date Note Type Note Provider Name and Address Organization Details Recorded Time 7 text/html Referred for ongoing steroid therapy and bone density s/p extensive chemo therapy for AML (2008)BMD (2009) =Spine: -1.0 (2015); was -2.2 (2009)Left femoral neck= -2.0 (07/21)- was -1.8 (2009);Total hip= -1.3 (07/2016); was -1.8 (2010) FRAX score was 14% for major fracture [...] marrow xplants. SMOKING: None. Shane Burciaga MD [address] [place] [address], [address], [facility] 09/24/2016 14:59:02 5 text/html ThyroidReported bypatient.Previous Evaluation:TSH: [...] GI:no constipation; no diarrhea; some bowel incontinence ([place]). Neurological:no tremor (little on/off in past.);anxiety;jittery/n ervous PCP: Chantel Waller ENVIRONMENTAL STUDIES PROGRAM DIRECTOR at [facility]: [address] was Germán (De) Zaria (xplant)DERM: [place].HEART: [place].NEURO: [place]. (shingles) CC: Thyroid.Started couple of [...] was hospitalized, slipped on a towel . 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 exercise is tennis and jogging and yoga and walking. 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 Knows house is too much for one person FAM Hx:Dad 87- brain tumor (GLIA)Mom - lung CASister is 59- healthyBen, and Guerita- healthy. Guerita has tachycardia.10/30; is getting (06/29). nephew getting in 07/30. Previously seen for ongoing steroid therapy and bone density s/p extensive chemo therapy for AML (2008) OSTEOPENIA:BMD@ [facility] (vs 2020)Spine= -2.1 (12/27; -12% vs. 2020);Left [...] marrow xplants. SMOKING: None. Shane Burciaga MD [address] [place] [address], [place], [address], [facility] 10/11/2024 17:43:52 OBGyn Episode No OBEpisode recorded.
== END 2024-11-01 17:08 | disposition home or self-care (01) ==
LOC: HO.HOP 15:36
PROVIDERS: PCP Internal Medicine; Visit Provider Clinical Nurse Specialist Psychiatric/Mental Health
DX: F42.2 Mixed obsessional thoughts and acts (principal)
CPT/HCPCS: 99214

== ENCOUNTER → 2024-11-01 15:36 | Outpatient (BNVA) | payer MEDICARE, MEDICAID, SELFPAY | PROVIDERS: PCP Internal Medicine; Visit Provider Clinical Nurse Specialist Psychiatric/Mental Health | DX: F42.2 Mixed obsessional thoughts and acts (principal) | CPT/HCPCS: 99212 ==

== ENCOUNTER 2024-11-16 09:30 | Inpatient (IN) | payer MEDICARE, MEDICAID, SELFPAY ==
[2024-11-16] VITALS (9 sets, daily range): BP systolic 106–166; BP diastolic 57–90; PULSE 86–101; RESP 16–20; TEMP 36.4–37.9; O2SAT 95–99; BMI 18.7
--- NOTE | ~2024-11-16 | XR_ITS ---
EXAMINATION: XR THUMB, LEFT CLINICAL INFORMATION: left thumb pain COMPARISON: None available. TECHNIQUE: Three views of the left thumb. FINDINGS: No fracture, dislocation, or suspicious bone lesion. Normal bone mineralization. Normal alignment. Joint spaces are preserved. No significant arthropathy. There is soft tissue swelling of the dorsal thumb. No foreign body evident. XR/XR finger LT min 2V IMPRESSION: 1. No acute bony abnormalities. 2. Soft tissue swelling dorsal thumb. Electronically signed by: Juan Antonio Zuleta MD 11/16/2024 10:26 AM EDT
--- NOTE | 2024-11-16 09:41 | ED_ITS ---
HPI - General Adult General Chief complaint: Extremity Problem Stated complaint: ? 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 Patient states that she had a Mohs procedure and skin graft on her left thumb for a skin cancer on November 05 2024. She states that she was initially doing well, but states that 2 days ago she started noticing some redness and swelling to her left thumb. She states that she noted pus. She states calling her solar sales estimator yesterday at [facility] where she had the surgery who prescribed her doxycycline. She states that she took 2 doses yesterday and 1 dose this morning just prior to arrival. She states that she had a fever to 102.4? F this morning. She states that she took 2 Tylenol and oxycodone prior to arrival. She states no chest pain or dyspnea. She states no GI or symptoms. Related Data Home Medications ?Medication ?Instructions ?Recorded ?Confirmed gabapentin 300 mg capsule 600 mg PO TID 10/13/23 11/01/24 oxycodone 5 mg tablet 10 mg PO Q4H PRN Pain 10/13/23 11/01/24 estradiol 0.01% (0.1 mg/gram) 1 appl vaginal 2XW 10/28/23 11/01/24 vaginal cream famotidine 20 mg tablet 20 mg PO BID 10/28/23 11/01/24 folic acid 1 mg tablet 1 mg PO DAILY 10/28/23 11/01/24 losartan 25 mg tablet 25 mg PO DAILY 10/28/23 11/01/24 cevimeline 30 mg capsule 1 cap PO TID PRN Dry Mouth 12/14/23 11/01/24 fluorouracil 5 % topical cream 1 appl topical DAILY PRN carcinoma 12/14/23 11/01/24 fluoride (sodium) 1.1 % dental gel 1 appl dental DAILY 02/20/24 11/01/24 (DentaGel) valacyclovir 500 mg tablet 500 mg PO BID 02/20/24 11/01/24 furosemide 20 mg tablet 20 mg PO DAILY 05/22/24 11/01/24 hydroxyzine HCl 25 mg tablet 25 mg PO Q8H PRN itching 07/13/24 11/01/24 apixaban 2.5 mg tablet (Eliquis) 2.5 mg PO BID 08/10/24 11/01/24 diltiazem HCl 240 mg 240 mg PO DAILY 08/10/24 11/01/24 capsule,extended release 24 hr empagliflozin 10 mg tablet 10 mg PO DAILY 08/10/24 11/01/24 (Jardiance) Lactobacillus acidophilus 10 10,000 mmu cells PO DAILY 09/23/24 11/01/24 billion cell capsule (Probiotic) acetaminophen 500 mg tablet 500 mg PO Q6H PRN Pain 09/23/24 11/01/24 budesonide 3 mg 9 mg PO DAILY PRN fecal 09/23/24 11/01/24 capsule,delayed,extended release incontinence/flare calcipotriene 0.005 % topical cream 1 appl topical DAILY PRN carcinoma 09/23/24 11/01/24 levothyroxine 75 mcg tablet 75 mcg PO DAILY 09/23/24 11/01/24 lysine 500 mg tablet (L-Lysine) 1,000 mg PO DAILY 09/23/24 11/01/24 multivitamin 1 tab PO DAILY 09/23/24 11/01/24 vitamin D3 125 mcg (5,000 1 cap PO DAILY 09/23/24 11/01/24 unit)-vitamin K2 90 mcg capsule zinc acetate 25 mg (zinc) capsule 25 mg PO DAILY 09/23/24 11/01/24 duloxetine 60 mg capsule,delayed mg PO DAILY 11/01/24 11/01/24 release Previous Rx's ?Medication ?Instructions ?Recorded lorazepam 0.5 mg tablet 0.5 mg PO DAILY PRN anxiety #30 08/10/24 tabs lidocaine 5 % topical patch 1 patch topical DAILY #15 ea 10/19/24 ondansetron 4 mg disintegrating 4 mg PO Q8H PRN nausea and 10/19/24 tablet vomiting #10 tabs mirtazapine 7.5 mg tablet 7.5 mg PO BEDTIME #90 tabs 11/01/24 Allergies Allergy/AdvReac Type Severity Reaction Status Date / Time vancomycin [VANCOMYCIN] Allergy Mild HIVES Verified 11/16/24 09:42 imipenem [IMIPENEM] Allergy Unknown HIVES Verified 11/16/24 09:42 Penicillins [PENICILLINS] Allergy Unknown UNKNOWN Verified 11/16/24 09:42 lisinopril [LISINOPRIL] AdvReac Unknown COUGH Verified 11/16/24 09:42 Review of Systems 2 Review of Systems: ROS as per HPI [facility] Past Medical History Medical History (Updated 11/16/24 @ 12:06 by Sree Gaspar MD) OCD (obsessive compulsive disorder) Left shoulder pain PAF (paroxysmal atrial fibrillation) Major depressive disorder, recurrent, moderate Dysthymia Post herpetic neuralgia Social History Social History Household Members: None Housing: House Do you presently have visiting nurse or other home services: No Alcohol intake: current Alcohol intake frequency: holidays/special occasions only Patient Tobacco Use Status: Never used Tobacco Smoked in Last 30 Days: No Use of substances other than those prescribed or required for medical reasons: Yes Substance Use Type: Marijuana Substance Use Frequency: Daily Advance Directives: Yes Advance Directives Information Provided: Yes Advance Directives on File: No Do you have a plan to hurt others: No Plan service: No Physical Exam ED Vital Signs: Vital Signs - 24 hr 11/16/24 09:39 11/16/24 09:43 Temperature 100.3 F 100.3 F Pulse Rate 98 98 Respiratory Rate 18 18 Blood Pressure 143/83 H 143/83 H Pulse Oximetry 98 98 Oxygen Delivery Method Room Air Room Air BMI result Body Mass Index 18.7 Gen: NAD, AOx3 HEENT: NCAT, EOMI, normal conjunctiva CV: RRR Pulm: CTAB, no increased work of breathing GI: Soft, NTND, no rebound, guarding or rigidity Neuro: Grossly non focal MSK: Intact active range motion with the left thumb flexion/extension Skin: Warm, dry, edema to the left thumb with area of ulcerated skin to the dorsum of the thumb with associated scant purulence and circumferential erythema and without tenderness to palpation along the palmar aspect of the left thumb Medications Administered Discontinued Medications Generic Name Dose Route Start Last Admin Trade Name Freq PRN Reason Stop Dose Admin Lactated Ringer's 1,674 mls @ 1,674 mls/hr 11/16/24 10:07 11/16/24 11:11 Lr 30 ml/kg infuse over 1 hr (1674 ml) 11/16/24 11:06 1,674 mls/hr IV Administration .Q1H ONE Cefazolin Sodium/Dextrose 2 gm in 50 mls @ 100 mls/hr 11/16/24 10:10 11/16/24 11:11 Ancef IV 11/16/24 10:39 100 mls/hr ONCE ONE Administration Medical Decision Making Medical Decision Making [facility] Narrative: Differential diagnosis includes, but is not limited to sepsis, cellulitis, osteomyelitis. Exam is not consistent or suggestive flexor tenosynovitis. Given superficial nature of the patient's wound infection which, which does not probe to the bone I have low overall clinical suspicion for osteomyelitis. Patient has a temperature of a 100.3? F and does not trigger for her serous time of presentation, but given reported fever of 102.4? F with suspected source of infection of her left thumb we will obtain sepsis lives and initiate sepsis treatment. The patient has already taken doxycycline prior to arrival at home and thus help provide additional coverage of skin ashley with Ancef. I reviewed and interpreted the patient's labs, EKG and chest x-ray as below. On serial reexamination, there was no progression of her localized erythema/edema and so I have very low suspicion for necrotizing fasciitis as well though it was considered. Patient was treated supportively with 30 cc/kilos IV fluid bolus with lactated Ringer's. Blood cultures pending. I discussed the patient's case and management with admitting hospitalist, Dr. Castillo, who accepts the patient for further workup and management. Admission/Observation Consideration of admission/observation: Escalation of care including admission/observation considered Consult Healthcare Provider Management of the patient was discussed with: Hospitalist Lab Data [facility] Lab Attestation statement: I reviewed the patient's lab results. I independently reviewed and interpreted the patient's labs, which are notable for stable chronic anemia with hemoglobin 9.8 (previous 8.2) metabolic panel reassuring, coagulation studies unremarkable, ESR reassuring at 14, CRP pending, blood cultures pending, viral panel negative 11/16/24 10:43 11/16/24 10:43 Labs: Lab Results 03/14/25 Range/Units 10:43 WBC 19.4 H (4.8-10.8) X10*3/uL RBC 2.74 L (4.20-5.50) X10*6/uL Hgb 9.8 L (12.0-16.0) g/dl Hct 27.5 L (37.0-47.0) % MCV 100.4 H (80.0-98.0) fL MCH 35.8 H (27.0-33.0) pg MCHC 35.6 H (31.0-35.0) g/dl RDW 18.6 H (11.0-16.0) % Plt Count 268 D (160-400) X10*3/uL MPV 9.4 (9.4-12.3) fL Immature Gran % (Auto) 0.6 H (0.0-0.4) % Neut % (Auto) 83.8 H (45-73) % Lymph % (Auto) 6.1 L (20-40) % [place] % (Auto) 8.2 (2-11) % Eos % (Auto) 1.1 (0-4) % Baso % (Auto) 0.2 (0-2) % Lymph # (Auto) 1.2 (1.2-4.9) X10*3/uL [place] # (Auto) 1.6 H (0.1-1.2) X10*3/uL Eos # (Auto) 0.2 (0.0-0.4) X10*3/uL Baso # (Auto) 0.0 (0.0-0.2) X10*3/uL Abs Immat Gran (auto) 0.11 H (0.00-0.03) X10*3/uL Absolute Neuts (auto) 16.3 H (2.0-8.3) x10*3/uL Absolute Nucleated RBC 0.030 H (0.0-0.012) X10*3/uL Nucleated RBC % (auto) 0.2 (0.0-0.2) /100WBC Smear Tech's Comments VERIFIED ESR 14 (0-20) MM/HR PT 12.0 (10.9-12.4) SEC INR 1.0 (0.9-1.1) APTT 34.8 (26.0-36.8) SEC Sodium 136 (135-145) mmol/L Potassium 4.5 (3.3-5.1) mmol/L Chloride 104 (96-108) mmol/L Carbon Dioxide 27 (22-29) mmol/L Anion Gap 10 L (12-20) BUN 28 H (9-16) mg/dL Creatinine 1.00 (0.5-1.4) mg/dL Estim Creat Clear Calc 46.1 Estimated GFR 55 Random Glucose 109 (60-115) mg/dL Lactic Acid 0.5 (0.5-2.0) mmol/L Calcium 8.5 (8.4-10.2) mg/dL Total Bilirubin 0.4 (0.0-1.0) mg/dL Direct Bilirubin 0.2 (0.0-0.5) mg/dL AST 22 (5-31) U/L ALT 32 H (0-31) U/L Alkaline Phosphatase 115 (39-117) U/L Total Protein 5.7 L (6.5-8.0) g/dL Albumin 3.4 L (3.5-5.0) g/dL Influenza Type A (PCR) NEGATIVE (Negative) Influenza Type B (PCR) NEGATIVE (Negative) RSV RNA Qual (PCR) NEGATIVE (Negative) SARS-CoV-2 RNA (RT-PCR) NEGATIVE (Negative) Independent Interpretation I performed an independent interpretation of an: EKG and Plain X-Ray Interpretation: EKG shows sinus rhythm at 86 beats per minute, MI 120, QRS 96, QTC 440, no STEMI. X-ray shows no fracture Radiology Impression Discussion of test interpretation with radiology: I have reviewed the radiologist's reading. Radiologist Impression: [place] [address] XRay Report Signed Patient: John Lin MR#: [id number] : 1955 Acct:[id number] Age/Sex: 69 / F ADM Date: 11/16/24 Loc: .ED Attending Dr: Ordering Physician: Sree Gaspar MD Date of Service: 11/16/24 Procedure(s): XR finger LT min 2V Accession Number(s): [id number] cc: Eva Monreal MD; Sree Gaspar MD~ EXAMINATION: XR THUMB, LEFT CLINICAL INFORMATION: left thumb pain COMPARISON: None available. TECHNIQUE: Three views of the left thumb. FINDINGS: No fracture, dislocation, or suspicious bone lesion. Normal bone mineralization. Normal alignment. Joint spaces are preserved. No significant arthropathy. There is soft tissue swelling of the dorsal thumb. No foreign body evident. XR/XR finger LT min 2V IMPRESSION: 1. No acute bony abnormalities. 2. Soft tissue swelling dorsal thumb. Electronically signed by: Juan Antonio Zuleta MD 11/16/2024 10:26 AM EDT Dictated By: Juan Antonio Zuleta MD Signed By: <Electronically signed by Juan Antonio Zuleta MD in OV> 11/16/24 1026 Discharge Plan Discharge Clinical Impression: Cellulitis of left thumb, Sepsis, Leukocytosis Patient Disposition: Admitted As Inpatient Prescriptions: No Action hydroxyzine HCl 25 mg tablet 25 mg PO Q8H PRN (Reason: itching) multivitamin Tablet 1 tab PO DAILY zinc acetate 25 mg (zinc) Capsule 25 mg PO DAILY acetaminophen 500 mg Tablet 500 mg PO Q6H PRN (Reason: Pain) levothyroxine 75 mcg tablet 75 mcg PO DAILY calcipotriene 0.005 % cream 1 appl topical DAILY PRN (Reason: carcinoma) Rx Instructions: with fluorouracil budesonide 3 mg capsule,delayed,extend.release 9 mg PO DAILY PRN (Reason: fecal incontinence/flare) lysine [L-Lysine] 500 mg Tablet 1,000 mg PO DAILY Probiotic 10 billion cell Capsule 10,000 mmu cells PO DAILY vitamin D3-vitamin K2 125-90 mcg Capsule 1 cap PO DAILY lidocaine 5 % adhesive patch,medicated 1 patch topical DAILY Qty: 15 0RF Rx Instructions: leave on most painful area for up to 12 hrs ondansetron 4 mg tablet,disintegrating 4 mg PO Q8H PRN (Reason: nausea and vomiting) Qty: 10 0RF losartan 25 mg tablet 25 mg PO DAILY estradiol 0.01 % (0.1 mg/gram) cream 1 appl vaginal 2XW Rx Instructions: APPLY TWICE A WEEK folic acid 1 mg tablet 1 mg PO DAILY famotidine 20 mg tablet 20 mg PO BID fluorouracil 5 % cream 1 appl topical DAILY PRN (Reason: carcinoma) Rx Instructions: with calcipotriene cevimeline 30 mg capsule 1 cap PO TID PRN (Reason: Dry Mouth) valacyclovir 500 mg tablet 500 mg PO BID fluoride (sodium) [DentaGel] 1.1 % gel 1 appl dental DAILY furosemide 20 mg tablet 20 mg PO DAILY oxycodone 5 mg tablet 10 mg PO Q4H PRN (Reason: Pain) gabapentin 300 mg capsule 600 mg PO TID diltiazem HCl 240 mg capsule,extended release 24hr 240 mg PO DAILY Jardiance 10 mg tablet 10 mg PO DAILY Eliquis 2.5 mg tablet 2.5 mg PO BID lorazepam 0.5 mg tablet 0.5 mg PO DAILY PRN (Reason: anxiety) Qty: 30 2RF duloxetine 60 mg capsule,delayed release(DR/EC) PO DAILY mirtazapine 7.5 mg tablet 7.5 mg PO BEDTIME Qty: 90 0RF Print Language: Czech
--- NOTE | 2024-11-16 10:08 | ECG_ITS ---
Test Reason : Sepsis Blood Pressure : */* mmHG Vent. Rate : 86 BPM Atrial Rate : 86 BPM P-R Int : 120 ms QRS Dur : 96 ms QT Int : 368 ms P-R-T Axes : 77 34 73 degrees QTcB Int : 440 ms Sinus rhythm with Premature atrial complexes Minimal voltage criteria for LVH, may be normal variant ( Kenny product ) Septal infarct (cited on or before 22-Sep-2024) Abnormal ECG When compared with ECG of 22-Sep-2024 15:34, Premature atrial complexes are now Present Questionable change in initial forces of Septal leads Referred By: Sree Gaspar Electronically Signed By: MARILEE ASHFORD
--- NOTE | 2024-11-16 10:09 | PC.NURSE ---
Pt. out of room to x-ray at this time.
[2024-11-16 10:55] LABS: Basophils Percent Auto 0.2 % (0-2); Eosinophils Absolute Auto 0.2 X10*3/uL (0.0-0.4); Eosinophils Percent Auto 1.1 % (0-4); Hematocrit 27.5 % (37.0-47.0); Hemoglobin 9.8 g/dl (12.0-16.0); Imm Gran Abs Auto 0.11 X10*3/uL (0.00-0.03); Imm Gran Pct Auto 0.6 % (0.0-0.4); Lymphocytes Absolute Auto 1.2 X10*3/uL (1.2-4.9); Lymphocytes Percent Auto 6.1 % (20-40); MANUAL DIFF FLAG SCAN; Mean Corpuscular HGB Conc 35.6 g/dl (31.0-35.0); Mean Corpuscular Hemoglobin 35.8 pg (27.0-33.0); Mean Corpuscular Volume 100.4 fL (80.0-98.0); Mean Platelet Volume 9.4 fL (9.4-12.3); Monocytes Absolute Auto 1.6 X10*3/uL (0.1-1.2); Monocytes Percent Auto 8.2 % (2-11); NRBC Pct Auto 0.2 /100WBC (0.0-0.2); Neutrophils Absolute Auto 16.3 x10*3/uL (2.0-8.3); Neutrophils Percent Auto 83.8 % (45-73); Platelet Count 268 X10*3/uL (160-400); Red Blood Count 2.74 X10*6/uL (4.20-5.50); Red Cell Distribution Width 18.6 % (11.0-16.0); SCAN SMEAR FLAG 1; White Blood Count 19.4 X10*3/uL (4.8-10.8)
[2024-11-16 11:04] LABS: Partial Thromboplastin Time 34.8 SEC (26.0-36.8)
--- OUTSIDE RECORDS SUMMARY | 2024-11-16 11:07 | XMS_ITS ---
Author Organization [facility] Address [address] [address] Care Team Providers Care Hot Man Name Role Phone Eva Monreal Primary Care Provider MANUEL Agarwal Unavailable [phone] REASON FOR VISIT [facility] Encounters Encounter Location Date Provider Diagnosis [facility] [address] [address] 02/02/2024 MANUEL MELÉNDEZ Plan Of Treatment No Information Progress Notes * John LIN ADOB: (68 yo F)Acc No.[id number]:02/02/2024 Patient:?John LIN :1955???Age:68 Y???Sex:Female Phone: Address:[address] [place] [address] * true * Date:? Generated for Erendira lizama/Ely/eTransmitting on:?11/16/2024 11:06 AM EDT
--- OUTSIDE RECORDS SUMMARY | 2024-11-16 11:07 | XMS_ITS | Clinical Summary ---
Author Organization [facility] Address [address] [place] [address] Care Team Providers Care Is Manager Name Role Phone Eva Monreal Primary Care Provider [phone] Allergies Active Allergy Reactions Criticality Noted Date Comments Ceftazidime Rash Low 07/20/2017 Cephalosporins Hives 08/25/2008 skin test pre-pen, pen G, and ceftriaxone on 06/20/2013, were all negative. However, given the low sensitivity of the latter, this patient should be considered cephalosporin (and carbapenem) allergic unless disproved by an hot patcher by way of a graded challenge. skin test pre-pen, pen G, and ceftriaxone on 06/20/2013, were all negative. However, given the low sensitivity of the latter, this patient should be considered cephalosporin (and carbapenem) allergic unless disproved by an hot patcher by way of a graded challenge. Imipenem-Cilastatin [...] History of peripheral stem cell transplant 06/23 Wnwtw-myyhgx-oieo disease 03/24/2015 Overview (02/11/2021): IMO update Hypertensive [...] 1955 Hepatitis C Screening 1955 Sigmoidoscopy 1955 Medicare AWV 1955 Mammogram 1994 Osteoporosis Screening 2004 Pneumococcal Vaccine: [...] age to complete this topic Insurance MEDICARE [facility] Care Teams Is Manager Relationship Specialty Start Date End Date Eva Monreal [address] [place] [id number] PCP - General Internal Medicine 12/12/20
--- OUTSIDE RECORDS SUMMARY | 2024-11-16 11:07 | XMS_ITS | Encounter Summary ---
Author Organization [facility] Address [address] [place] [address] Care Team Providers Care Weld Lay Out Worker Name Role Phone Eva Monreal Primary Care Provider [phone] Reason for Visit * Reason Onset Date Comments Appointment Rescheduling 02/15/2022 Encounter Details Date Type Department Care Team ([facility] Contact Info) Description 02/15/2022 Telephone [facility] Central Scheduling Department [address] [place] [id number] Telephone Intake, Staff Appointment Rescheduling Social History [...] on filedocumented in this encounter Care Teams Weld Lay Out Worker Relationship Specialty Start Date End Date Eva Monreal [address] [place] [address] PCP - General Internal Medicine 12/12/20 documented as of this encounter
--- OUTSIDE RECORDS SUMMARY | 2024-11-16 11:07 | XMS_ITS | Clinical Summary ---
Author Organization [facility] Address [address] [place] [address] Care Team Providers Care Lead Miner Blasting Name Role Phone Unavailable Primary Care Provider [...]
--- OUTSIDE RECORDS SUMMARY | 2024-11-16 11:07 | XMS_ITS | Referral Summary ---
Author Organization [facility] Address [address] [place] [address] Care Team Providers Care Quenching Car Operator Name Role Phone Eva Monreal Primary Care Provider [phone] Allergies Active Allergy Reactions Criticality Noted Date Comments Ceftazidime Rash Low 07/20/2017 Cephalosporins Hives 08/25/2008 skin test pre-pen, pen G, and ceftriaxone on 06/20/2013, were all negative. However, given the low sensitivity of the latter, this patient should be considered cephalosporin (and carbapenem) allergic unless disproved by an analytical laboratory technician by way of a graded challenge. skin test pre-pen, pen G, and ceftriaxone on 06/20/2013, were all negative. However, given the low sensitivity of the latter, this patient should be considered cephalosporin (and carbapenem) allergic unless disproved by an analytical laboratory technician by way of a graded challenge. Imipenem-Cilastatin [...] History of peripheral stem cell transplant 06/23 Jmtnb-upqhmg-kikg disease 03/24/2015 Overview (02/11/2021): IMO update Hypertensive [...] of Treatment Not on file Insurance MEDICARE [facility] Care Teams Quenching Car Operator Relationship Specialty Start Date End Date Eva Monreal [facility] [address] [place] [address] [address] [place] [address] [phone] PCP - General Internal Medicine 12/12/20
--- OUTSIDE RECORDS SUMMARY | 2024-11-16 11:07 | XMS_ITS | Encounter Summary ---
Author Organization [facility] Address [address] [place] [address] Care Team Providers Care Dean Of Men Name Role Phone Eva Monreal Primary Care Provider [phone] Encounter Details Date Type Department Care Team (Late st Contact Info) Description 04/12/2022 Telephone [facility] Central Scheduling Department [address] [place] [address] Telephone Intake, Staff Social History Tobacco Use [...] on filedocumented in this encounter Care Teams Dean Of Men Relationship Specialty Start Date End Date Eva Monreal [address] [place] [address] PCP - General Internal Medicine 12/12/20 documented as of this encounter
--- OUTSIDE RECORDS SUMMARY | 2024-11-16 11:07 | XMS_ITS ---
Author Organization [facility] Address [address] [address] Care Team Providers Care Vessel Traffic Officer Name Role Phone Eva Monreal Primary Care Provider Unavailabl e CORDELIA MELÉNDEZ Unavailable [phone] Allergies Allergen (clinical drug ingredient) Drug/Non Drug [...] extremity veno us stasis (I87.8) Referral Organization [facility] Referring Provider First Name CORDELIA Referring Provider Last Name MEDHAT Referring Provider Speciality Podiatry Referred Provider Specialty Intervention al Radiology Referral Priority Routine REASON FOR VISIT bump in left arch, left great toenail issue, rash on leg. Medications Medication SIG (Take, Route, Frequency, Duration) Notes Start Date End Date Status Ciclopirox 8 % 1 application Hse Specialist ally to toenail Once a day [...] Dental Active Fluorouracil 5 % 1 application Hse Specialist ally Twice a day Active Folic [...] day Active Mupirocin 2 % 1 application Hse Specialist ally Twice a day Active Nystatin-Triamcinolone 712686-8.1 UNIT/GM 1 application Externally Twice a day Active oxyCODONE HCl 5 MG 2 tablets as needed Orally every 4 hrs Active Probiotic Active Niacinamide 500 MG 1 tablet Orally Once a day Active Nystatin 050725 UNIT/ML 4 mL Mouth/Throa t Four times a day Active Tacrolimus 0.1 % 1 application Hse Specialist ally Once a day Active Tretinoin 0.025 % 1 application in the evening to face Externally Once a day Active Valtrex 500 MG 1 tablet Orally Once a day Active Problems Problem Type SNOMED Code ICD Code Onset Dates Problem Status W/U Status Risk Notes Problem 13872055936703673 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 She has been seeing a Pension Agent. 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 I have placed a referral with [facility] to see if there is a venous component. She will continue her follow ups with dermatology as well. 02/01/2024 Edema of left lower extremity due to peripheral venous insufficiency (ICD-10 - I87.2) Plan Of Treatment Medication Medication Name Sig Start Date Stop Date Notes Ciclopirox 8 % 1 application Hse Specialist ally to toenail Once a day [...] venous insufficiency. She has been seeing a Pension Agent. 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 I have placed a referral with [facility] to see if there is a venous component. She will continue her follow ups with dermatology as well. Pending Test Test Name Order Date X ray : Foot, left 3v 02/01/2024 Referrals Referral Date Details 02/01/2024 02/01/2024, Left low er extremity venous stasis dermatitis changes with edema. ? venous reflux Progress Notes * John LIN ADOB: [birth year] (68 yo F)Acc No.[id number]:02/01/2024 Consult note Patient:?John LIN A Provider:?Cordelia Mcclendon DPM :1955???Age:68 Y???Sex:Female D ate:02/01/2024 Phone: Address:[address] [place] [address] [place]-[phone] Pcp:Eva Monreal Subjective: * [...] few months. She has been seeing a power line installer in [place] who has been giving her topical treatments. [...] to follow closely with Gabrielle Bauman in [place]. * ROS:?General/Constitutional:?Denies?Chills.?Denies?Fatigue.?Denies?Fever.?Denies?Headache.?Allergy/Immunology:?Denies?Hives.?Denies?Itching.?Denies?Rash.?Endocrine:?Denies?Excessive sweating.?Denies?Excessive thirst.?Denies?Frequent urination.?Respiratory:?Denies?Cough.?Denies?Shortness of breath,?denies.?Denies?Wheezing.?Cardiovascular:?Denies?Chest [...] as needed Orally every 4 hrs Nystatin-Triamcinolone 632924-8.1 UNIT/GM Cream 1 application Externally Twice a day Nystatin 788872 UNIT/ML Suspension 4 mL Mouth/Throat Four times [...] Orally every 4 hrs Taking Nystatin- Triamcinolone 796615-0.1 UNIT/GM Cream 1 application Externally Twice a day Taking Nystatin 323528 UNIT/ML Suspension 4 mL Mouth/Throat Four times [...] venous insufficiency. She has been seeing a Pension Agent. 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 I have placed a referral with [facility] to see if there is a [...] radio opaque foreign bodies. ? * Procedure Codes:?08463 X-RAY EXAM OF FOOT 3 Views, Modifiers: LT * Billing Information: * Visit Code:? 38953 Office Visit, New Pt., Level 3. * Procedure Codes:? 28362 X-RAY EXAM OF FOOT 3 Views. Modifiers: LT * Sign off status: Completed true * Provider:?Cordelia Mcclendon DP Date:?01/31 Generated for Erendira lizama/Ely/Tiffaniesmitting on:?11/16/2024 11:07 AM EDT History and Physical Notes * Examination Category [...]
--- OUTSIDE RECORDS SUMMARY | 2024-11-16 11:08 | XMS_ITS | Data Portability ---
Author Organization [facility] [employer] [employer] Address [address] [place] [address] Care Team Providers Care Migrant Leader Name Role Phone AASHISH WRAY Referring Provider SHAYLEE JENSEN Primary Care Provider [phone] Assessment Encounter Date Assessment Date Assessment LastModified [...] these by her healthcare providers at the [facility] [place]. In this context, we decided that she [...] She would like to do this. >>>>>>>>>>>>[facility] 2023 I can think of two possible [...] her healthcare providers at the [facility] [place]. In this context, we decided that she [...] Follow-up 1 month. Florentin Hooper MD PhD [email or web address] Not available 09/13/2024 15:54:54 10/16/2024 [...] She would like to do this. >>>>>>>>>>>>[facility] 2023 I can think of two possible [...] these by her healthcare providers at the [facility] [place]. In this context, we decided that she [...] Follow-up 1 month. Florentin Hooper MD PhD [email or web address] Not available 10/16/2024 18:02:20 Plan [...] 60 mg capsule,d elayed release 2024 025 [id number], [address] [place], [address], 10/16/2024 17:22:59 duloxetin e 30 mg capsule,d elayed release 2024 025 [id number], [address] [place], [address], 09/13/2024 15:56:50 Patient TargetsNo targets recorded. Patient Instructions Encounter Date Encounter Id Patient Instructions Last Modified By Organization Details Last Modified Time 05/24/2024 [id number] Discussion acros s issues of diagnoses and management and same day associated chart review and management greater than 50% greater than 60 minutes [email or web address] Not available 05/24/2024 14:38:56 09/13/2024 [id number] Discussion acros s issues of diagnoses and management and same day associated chart review and management greater than 50% greater than 40 minutes [email or web address] Not available 09/13/2024 15:55:04 10/16/2024 [id number] Discussion acros s issues of diagnoses and management and same day associated chart review and management greater than 50% greater than 40 minutes [email or web address] Not available 10/16/2024 17:10:33 Reason for Referral None Reported. Procedures Surgical History Date Name Laterality Status Provider Name and Address Organization Details Recorded Time botulinum injection completed Florentin Hooper MD [address] [place] [address], [phone], [facility] 08/22/2024 17:41:31 Imaging Results None [...] Updated DateTime 05/24/2024 170.18 cm 18.8 kg/m2 78204.08 g 12 /min Dee Christina [facility] 05/24/2024 13:15:33 Social History Question Answer Notes LastModified by Organizat ion Details LastModified Time Tobacco Smoking Status Never Smoker Dee Vasquez elena [facility] 05/24/2024 13:16:06 What Is Your Level Of Alcohol Consumption? Occasional Information not available 05/24/2024 What Is Your Level Of Caffeine Consumption? Moderate Information not available 05/24/2024 What Is The Highest Grade Or Level Of School You Have Completed Or The Highest Degree You Have Received? [id number] Information not available 05/24/2024 Which Of Your Hands Is Dominant? Right Information not available 05/24/2024 Sex: Unknown Functional Status None recorded. Mental Status None recorded. Family History Nothing Reported. Medical History Condition Response Head Trauma/Injury N Depression Y Lung Disease N COPD or emphysema N Spine Problems N Obstructive Sleep Apnea N Alcoholism N Autoimmune disease N Arthritis N Developmental Problems N Cancer N Stroke N Heartburn, acid reflux, GERD Y Vitamin D Deficiency N Liver Disease N Fibromyalgia N Headaches N Kidney Disease Y Claustrophobia N Hospitalizations N High Blood Pressure or Hypertension Y Thyroid Problems N Brain Tumors N Encephalitis N Vitamin B12 deficiency N PTSD N Heart Attack (HI) N Diabetes N Bleeding Disorder N Cerebral Palsy N Tuberculosis N Neck Problems N Back Problems N Asthma N Epilepsy/Seizures N Bipolar Disorder N Sleep Disorder N Aneurysm N Hepatitis N Heart Disease Y High Cholesterol or Hyperlipidemia N Osteoporosis N Gynecological HistoryNo gynecological history recorded. 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 [id number] Florentin Hooper MD [facility] [address] [place] [address] [place] [address] 09/13/2024 14:42:26 09/13/2024 16:42:55 Post-herpetic neuritis 962534349 B02.29 [id number] Florentin Hooper MD [facility] [address] [place] [address] [place] [address] 10/16/2024 17:05:45 10/17/2024 07:51:24 Post-herpetic neuritis 634640461 B02.29 Health Concerns Section Related Observation LastModified by Organization Detai ls LastModified Time None Recorded Concern Status LastModified by Organization Details LastModified Time None Recorded Advance Directives Directive None Recorded Payers Encounter Date Sequence Insurance Name Policy Number Policy Slaughter Covered Member ID Slaughter Member ID Guarantor Name 05/24/2024 2 [place] John Lin [id number] John Lin 05/24/2024 1 [place] [employer] Johnelin Lin [id number] John Lin 08/22/2024 2 [place] John Lin [id number] John Lin 08/22/2024 1 [place] Johnelin Lin [id number] John Riley 09/13/2024 2 [place] John Riley [id number] John Lin 09/13/2024 1 [place] Johnelin Lin [id number] John Lin 10/16/2024 2 [place] Johnelin Lin [id number] John Lin 10/16/2024 1 [place] John Riley [id number] John Lin Notes Date Note Type Note [...] post for bone marrow transplant, followed at [facility]; depression? s table on medication; hypertension good control on medication; neuropathy on gabapentin; postherpetic neuralgia and cervicalgia still suboptimally managed context [facility] and pain management consultations; [...] intervention for her persistent intense itching. One transportation consultant performed MRI cervical spine and follow-up [...] from that trial of capsaicin. A third transportation consultant offered antidepressant medications and surgery. She [...] the reduction of duloxetine. Florentin Hooper MD [address] [place] [address] [place], [phone], [facility] 08/22/2024 16:29:13 08/22/2024 text/html Follow up for regina tox injectinos for postherpetic neuralgia, status post ~2021 onset of herpes affecting left upper back and posterolateral shoulder, with subsequent postherpetic neuralgia symptoms of persistent intense itching.? 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; depression? s table on medication; hypertension good control on medication; neuropathy on gabapentin; postherpetic neuralgia and cervicalgia still suboptimally managed context [facility] and pain management consultations; [...] intervention for her persistent intense itching. One transportation consultant performed MRI cervical spine and follow-up [...] from that trial of capsaicin. A third transportation consultant offered antidepressant medications and surgery. She [...] the reduction of duloxetine. Florentin Hooper MD [address] [place] [address] [place], [phone], [facility] 08/22/2024 17:41:45 09/13/2024 text/html Follow up for af ter botox injectinos for postherpetic neuralgia, status post ~2021 onset of herpes affecting left upper back and posterolateral shoulder, with subsequent postherpetic neuralgia symptoms of persistent intense itching.? 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; depression? s table on medication; hypertension good control on medication; neuropathy on gabapentin; postherpetic neuralgia and cervicalgia still suboptimally managed context [facility] and pain management consultations; [...] intervention for her persistent intense itching. One transportation consultant performed MRI cervical spine and follow-up [...] from that trial of capsaicin. A third transportation consultant offered antidepressant medications and surgery. She [...] the reduction of duloxetine. Florentin Hooper MD [address] [place] [address] [place], [phone], [facility] 09/13/2024 15:57:10 10/16/2024 text/html Follow up for af ter botox injectinos for postherpetic neuralgia, status post ~2021 onset of herpes affecting left upper back and posterolateral shoulder, with subsequent postherpetic neuralgia symptoms of persistent intense itching.? 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; depression? s table on medication; hypertension good control on medication; neuropathy on gabapentin; postherpetic neuralgia and cervicalgia still suboptimally managed context [facility] and pain management consultations; [...] intervention for her persistent intense itching. One transportation consultant performed MRI cervical spine and follow-up [...] from that trial of capsaicin. A third transportation consultant offered antidepressant medications and surgery. She [...] the reduction of duloxetine. Florentin Hooper MD [address] [place] [address] [place], [phone], [facility] 10/16/2024 18:03:24 OBGyn Episode No OBEpisode recorded.
--- OUTSIDE RECORDS SUMMARY | 2024-11-16 11:08 | XMS_ITS | Data Portability ---
Author Organization [facility], [facility] Address [address] [place] [address] Care Team Providers Care Motel Front Desk Clerk Name Role Phone SHAYLEE JENSEN Primary Care Provider [phone] Assessment Encounter Date Assessment Date Assessment LastModified by Organization Details LastModified Time 09/23/2016 09/23/2016 Osteopenia in patient on chronic steroids with hx of AML s/p bone marrow transplants x4. 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 BP up today both at intake and at end of visit (190/115 by sd)- start losartan. BMD Results: Spine: -1.0 (2015); was -2.2 (2009) Left femoral neck= -2.0 (07/21)- was -1.8 (2009); Total hip= -1.3 (07/2016); was -1.8 (2009) PCP is Erwin Gavin. Team at [facility] is: TERESE Desir (De) Zaria (xplant) ID is Jose Manuel Penn [email or web address] [...] D, 25-hydrox y, total, serum 2024 025 [facility], [address] [place] [address], [address], 16:22:12 renal function panel, serum 2024 025 [facility], [address] [place] [address], [address], 16:22:12 magnesium , blood 2024 025 [facility], [address] [place] [address], [address], 16:22:12 PTH (parathyr oid hormone), intact, serum or plasma 2024 025 [facility], [address] [place] [address], [address], 16:22:12 TSH, serum or plasma 2024 025 [email or web address], [address] [place] [address], [place], [address], 16:22:12 TSH, serum or plasma 2024 025 [facility], [address] [place] [address], [address], 16:22:11 T4, free, serum 2024 025 [facility], [address] [place] [address], [address], 16:22:11 Referral None recorded. Procedures None recorded. Surgeries None recorded. Imaging None recorded. Medication Orders levothyro xine 112 mcg tablet 2024 025 [id number], [address] [facility], [place], [address], 17:43:50 losartan 100 mg tablet 2016 017 [email or web address], [address] [place], [address], 16:30:16 Patient TargetsNo targets recorded. Patient Instructions Encounter Date Encounter Id Patient Instructions Last Modified By Organization Details Last Modified Time 09/23/2016 [id number] Discussed CCM- signed 09/2016- [facility] sstuartchipkin Not available 09/24/2016 14:58:51 10/11/2024 [id number] - Continue to take calcium (0399-2113 mg per day) and vitamin D (1173-2715 units per day). - Consider looking for opportunities for exercise or balance classes to help prevent falls. - Get labs done every 3 months ([place]) - Continue taking thyroid hormone every day [...] for 20min visit Discussed CCM- signed 09/2016- [facility] sstuartchipkin Not available 10/11/2024 17:42:03 Reason for [...] 09/05/2011 Hernia Repair completed GREGORIA Shafer [address] [place], [address], [facility] 09/23/2016 16:36:11 09/05/1991 completed GREGORIA Shafer [address] [place], [address], [facility] 09/23/2016 16:34:24 09/05/1988 completed GREGORIA Shafer [address] [place], [address], [facility] 09/23/2016 16:34:29 09/05/1984 completed GREGORIA Shafer [address] [place], [address], [facility] 09/23/2016 16:34:20 Imaging Results Imaging [...] Not available Not available Not available 09/23/2016 [id number] SNOMED GREGORIA Shafer [address] [facility] [place], [address], [facility] 7 16:36:43 Medications Name Sig [...] Address Organization Details Last Updated DateTime 7 48780.7 1 g 173.36 cm 21.6 kg/m2 76 /min 176 mm[Hg] 84 mm[Hg] Yaneth Moraes RN BSN [address] [place], [address], [facility] 7 16:45:02 Date Recorded Body weight Body mass index (BMI) Body height Provider Name and Address Organization Details Last Updated DateTime 10/11/2024 66630.27 g 19 kg/m2 170.82 cm Merry Forman LPN [facility] 10/11/2024 16:22:10 Social History Question Answer Notes LastModified by Organizat ion Details LastModified Time Tobacco Smoking Status Never Smoker 09/23/16 Yaneth Moraes RN BSN [address] [place], [address], [facility] 09/23/2016 16:33:43 What Is Your [...] (COVID-19) vaccine, UNSPECIFIED 09/05/2020 completed URSULA Hudson, [facility] 10/11/2024 16:35:03 SARS-COV-2 (COVID-19) vaccine, UNSPECIFIED 10/26/2020 completed URSULA Hudson, [facility] 10/11/2024 16:35:15 Past Encounters Encounter ID Performer Location Encounter Start Date Encounter Closed Date Diagnosis/Indication Diagnosis SNOMED-CT Code Diagnosis ICD10 Code Diagnosis Note [id number] Shane Burciaga MD [facility], [address] [address] 09/23/2016 16:23:17 09/27/2016 15:34:09 Osteopenia 483354554 M85.9 BMD from 07/2016 has FRAX scores [...] bone density. Long-term current use of steroid 030619421 Z79.52 Low dose of prednisone raises the [...] discussing with ID. History of leukemia 1614 48949 Z85.6 Contribute s to complexity and the need for the circumstan ceci described above. Essential hypertension 02612474 I10 BP 190/115 at end of visit. Suggest she take losartan. Thyroid nodule 108090176 E04.1 On exam on right side. Pt. gives hx of benign bx. Can follow clinically but plan to better assess with ultrasound at next visit. Skin ulcer 48600754 L98. 499 Right medial malleolus in site of MOHS procedure. Looks to be stage III with concern because of presence of odor and some erythema at perimeter. No streaking. No discharge but has (+) odor.Pt. in touch with [facility] providers to arrange follow-up. [id number] Shane Burciaga MD [facility], [address] [address] 10/11/2024 16:17:15 10/12/2024 07:47:01 Osteopenia 778712005 M85.9 Goals are:- Minimize risk for fracture [...] e 1mg) for many years Essential hypertension 69950362 I10 On losartan (25). Also DILT (240) as part of AFib.Also lasix and jardiance (no DM but maybe for heart failure) Thyroid nodule 968828091 E04.1 On exam on right side. Pt. gives hx of benign bx. Can follow clinically but plan to better assess with ultrasound at next visit. History of leukemia 1614 27148 Z85.6 Contribute s to complexity and the need for the circumstan ceci described above. Hypothyroidism 58432433 E03.9 UNCONTROLL EDGOALS:- Optimize thyroid function- Minimize [...] ID Guarantor Name 09/23/2016 1 [place] B[place]: [employer] John Lin [id number] John Lin 09/23/2016 2 [place] [facility] John Lin [id number] John Lin 10/11/2024 2 [place] [facility]) John Lin [id number] John Lin 10/11/2024 1 [place] [employer] John Lin [id number] John Lin Notes Date Note Type Note [...] marrow xplants. SMOKING: None. Shane Burciaga MD [address] [place] [address], [address], [facility] 09/24/2016 14:59:02 5 text/html ThyroidReported [...] on/off in past.);anxiety;jittery/n ervous PCP: Chantel Waller [employer] DEAN at [facility]: [address] was Germán Enciso ([place]) (xplant)DERM: [place].HEART: [place].NEURO: [place]. (shingles) CC: Thyroid.Started couple of months ago. Started on 25mcg. Then to 50 and then to 75 daily.Told to take 75mcg alternating with 150. long-term current use of steroidessential hypertensionthyroid nodulehistory of leukemiaLV on 09/2016 was new at this time PT states PCP has been managing thyroid but now PCP would like to be evaluated again by [facility] 09/29PT was recently had a fall and was hospitalized, slipped on a towel . 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 exercise is tennis and jogging and yoga and walking. 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 Knows house is too much for one person FAM Hx:Dad 87- brain tumor (GLIA)Mom - lung CASister is 59- healthyBen, and Guerita- healthy. Guerita has tachycardia.10/30; is getting (06/29). nephew getting in 07/30. Previously seen for ongoing steroid therapy and bone density s/p extensive chemo therapy for AML (2008) OSTEOPENIA:BMD@ [facility] (vs 2019)Spine= -2.1 (12/27; -12% vs. 2019);Left total hip= -2.3 (12/27; -13.8% vs. 2019)Left [...] marrow xplants. SMOKING: None. Shane Burciaga MD [address] [place] [address], [address], [facility] 10/11/2024 17:43:52 OBGyn Episode No OBEpisode recorded.
--- OUTSIDE RECORDS SUMMARY | 2024-11-16 11:08 | XMS_ITS ---
Author Organization [facility] Address [address] [address] Care Team Providers Care Dcs Engineer Name Role Phone Shahnaz Monrealanne Primary Care Provider UnavailCORDELIA Crawford Unavailable [phone] Allergies Allergen (clinical drug ingredient) Drug/Non Drug [...] day Active Mupirocin 2 % 1 application Machine Rope Maker ally Twice a day Active Losartan Potassium [...] Active Encounters Encounter Location Date Provider Diagnosis [facility] [address] [address] 02/01/2024 CORDELIA MELÉNDEZ Plan Of Treatment No Information Progress Notes * John LIN ADOB: [birth year] (69 yo F)Acc No.[id number]:02/01/2024 Consult note Patient:?John LIN Provider:?Cordelia Mcclendon DPM :1955???Age:68 Y???Sex:Female D ate:02/01/2024 Phone: Address:[address] [place], [place] [address]Rayne GOMEZ [phone] Pcp:Eva Monreal Subjective: * Chief Complaints: * ???1. Lt foot cyst at the [facility]. * Medical History:?Acute myelo blastic leukemia in [...] Electronic signature of GE MELÉNDEZ D.P.M. on 11/16/2024 at 11:07 AM EDT Sign off status: Pending * Provider:?Cordelia Mcclendon DPM Date:?01/31 Generated for Erendira lizama/Ely/eTsusannesmpaxton on:?11/16/2024 11:07 AM EDT
[2024-11-16 11:11] LABS: Lactic Acid 0.5 mmol/L (0.5-2.0)
[2024-11-16] MEDS: ceFAZolin Sodium/Dextrose,Iso 2 GM/50 ML PIGGYBACK IV ×2 (11:11→20:47)
[2024-11-16] MEDS: LACTATED RINGERS 1674 ML IV (11:11)
[2024-11-16 11:12] LABS: Alanine Aminotransferase 32 U/L (0-31); Albumin Level 3.4 g/dL (3.5-5.0); Alkaline Phosphatase 115 U/L (39-117); Anion Gap 10 (12-20); Aspartate Amino Transferase 22 U/L (5-31); Bilirubin Direct 0.2 mg/dL (0.0-0.5); Bilirubin Total 0.4 mg/dL (0.0-1.0); Blood Urea Nitrogen 28 mg/dL (9-16); Calcium 8.5 mg/dL (8.4-10.2); Carbon Dioxide 27 mmol/L (22-29); Chloride 104 mmol/L (96-108); Creatinine Clr Calc Pharmacy 46.1; Estimated Glomerular Filt Rate 55; Glucose Random 109 mg/dL (60-115); Potassium 4.5 mmol/L (3.3-5.1); Sodium 136 mmol/L (135-145); Total Protein 5.7 g/dL (6.5-8.0)
[2024-11-16 11:34] LABS: Erythrocyte Sedimentation Rate 14 MM/HR (0-20); Influenza A PCR NEGATIVE (Negative); Influenza B PCR NEGATIVE (Negative); Resp Syncy Virus RNA Qual PCR NEGATIVE (Negative); SARS COV2 PCR INHOUSE NEGATIVE (Negative)
[2024-11-16 11:53] LABS: SLIDE REVIEW VERIFIED
--- NOTE | 2024-11-16 12:09 | PM.IMHP ---
History of Present Illness Date of Service: 11/16/24 Attending physician on admission: Millie Guillory Chief Complaint: Thumb infection Pt is a 69-year-old female with a PMH significant for paroxysmal AFib on Eliquis, AML s/p stem cell transplant in remission for past 15 years, HTN, hypothyroidism, GERD, and mood disorder who presents to the ED for evaluation of left thumb infection. Pt recently had a Mohs surgery performed on 11/05 at [facility]. pt reports had a graft taken from her left flank. Thumb was initially covered for one week, and when pt removed dressing sent a picture to surgeon's office who said it okay. Yesterday morning pt noticed area was swollen, red, and painful. Also noticed some pus-like drainage. Spoke to surgeon's office again and was started on doxycycline which she took 2 doses yesterday and 1 dose today. This morning pt's symptoms worsened and she spiked a fever measured at home of 102.4, which prompted her visit to the ED today. Reports some nausea after taking doxycycline, but no vomiting. Denies abdominal pain. No chest pain/pressure, palpitations. Denies difficulty breathing or SOB. No cough. In the ED pt was febrile up to 100.3, tachycardic up to 98, and hypertensive at 143/83. Labs were significant for leukocytosis of 19.9 otherwise grossly unremarkable and around baseline for pt. Stable microcytic anemia of 9.8/27.5. No significant electrolyte abnormalities. Renal function baseline. Lactic acid WNL at 0.5. Hepatic function WNL. Tested negative for flu, COVID, RSV. X-ray of left thumb negative for acute bony abnormality. EKG demonstrated sinus rhythm PACs, similar prior. Pt was treated with IVF and Ancef. Pt will be admitted to the hospital for treatment and further evaluation of left thumb cellulitis secondary to Mohs surgery that failed outpatient therapy and meets sepsis criteria. Review of Systems Review of Systems: Negative except for that which is stated in the HPI. REPLACED BY [facility] Medical History OCD (obsessive compulsive disorder) Left shoulder pain PAF (paroxysmal atrial fibrillation) Major depressive disorder, recurrent, moderate Dysthymia Post herpetic neuralgia Social History Household Members: None Housing: House Do you presently have visiting nurse or other home services: No Alcohol intake: current Alcohol intake frequency: holidays/special occasions only Patient Tobacco Use Status: Never used Tobacco Substance Use Type: Marijuana Advance Directives Date on File: 11/16/24 service: No Meds Allergies Allergy/AdvReac Type Severity Reaction Status Date / Time vancomycin [VANCOMYCIN] Allergy Mild HIVES Verified 11/16/24 09:42 imipenem [IMIPENEM] Allergy Unknown HIVES Verified 11/16/24 09:42 Penicillins [PENICILLINS] Allergy Unknown UNKNOWN Verified 11/16/24 09:42 lisinopril [LISINOPRIL] AdvReac Unknown COUGH Verified 11/16/24 09:42 Home Medications ?Medication ?Instructions ?Recorded ?Confirmed ?Last Taken ?Type gabapentin 300 mg capsule 600 mg PO TID 10/13/23 11/16/24 11/15/24 History oxycodone 5 mg tablet 10 mg PO Q4H PRN Pain 10/13/23 11/16/24 Unknown History estradiol 0.01% (0.1 mg/gram) 1 appl vaginal MARRUFO 10/28/23 11/16/24 Unknown History vaginal cream famotidine 20 mg tablet 20 mg PO BID 10/28/23 11/16/24 11/15/24 History folic acid 1 mg tablet 1 mg PO DAILY 10/28/23 11/16/24 11/15/24 History losartan 25 mg tablet 25 mg PO DAILY 10/28/23 11/16/24 11/15/24 History valacyclovir 500 mg tablet 500 mg PO BID 02/20/24 11/16/24 11/15/24 History hydroxyzine HCl 25 mg tablet 25 mg PO Q8H PRN itching 07/13/24 11/16/24 Unknown History apixaban 2.5 mg tablet (Eliquis) 2.5 mg PO BID 08/10/24 11/16/24 11/15/24 History diltiazem HCl 240 mg 240 mg PO DAILY 08/10/24 11/16/24 11/15/24 History capsule,extended release 24 hr empagliflozin 10 mg tablet 10 mg PO DAILY 08/10/24 11/16/24 11/15/24 History (Jardiance) Lactobacillus acidophilus 10 10,000 mmu cells PO DAILY 09/23/24 11/16/2425 History billion cell capsule (Probiotic) acetaminophen 500 mg tablet 500 mg PO Q6H PRN Pain 09/23/24 11/16/24 Unknown History multivitamin 1 tab PO DAILY 09/23/24 11/16/24 11/15/24 History cyclosporine 0.05 % eye drops in a 1 drp ophthalmic (eye) BID 11/16/24 11/16/24 11/15/24 History dropperette (Restasis) doxycycline monohydrate 100 mg 100 mg PO BID 11/16/24 11/16/24 11/15/24 History capsule duloxetine 60 mg capsule,delayed 60 mg PO BID 11/16/24 11/16/24 11/15/24 History release levothyroxine 112 mcg tablet 112 mcg PO DAILY@0600 11/16/24 11/16/24 11/15/24 History Physical Exam Vital Signs and Narrative: Vital Signs: Last Vital Signs Temp 100.3 F 11/16/24 09:43 Pulse 98 11/16/24 09:43 Resp 18 11/16/24 09:43 BP 143/83 H 11/16/24 09:43 Pulse Ox 98 11/16/24 09:43 O2 Del Method Room Air 11/16/24 09:43 BMI result Body Mass Index 18.7 General: AOx3, no acute distress Resp: CTA bilaterally CVS: S1, S2, RRR GI: +BS, NT, no distention Skin: Warm, dry Neuro: Cranial nerves II-XII grossly intact bilaterally. Motor grossly intact bilaterally Extremities: Left thumb with erythema, warmth, and swelling. As pictured below Psych: Appropriate affect Results Labs 11/17/24 06:43 11/17/24 06:43 Labs: Laboratory Results - last 24 hr 11/16/24 10:43 MCV 100.4 H MCH 35.8 H MCHC 35.6 H RDW 18.6 H Plt Count 268 D MPV 9.4 Immature Gran % (Auto) 0.6 H Neut % (Auto) 83.8 H Lymph % (Auto) 6.1 L Sargent % (Auto) 8.2 Eos % (Auto) 1.1 Baso % (Auto) 0.2 Lymph # (Auto) 1.2 Sargent # (Auto) 1.6 H Eos # (Auto) 0.2 Baso # (Auto) 0.0 Abs Immat Gran (auto) 0.11 H Absolute Neuts (auto) 16.3 H Absolute Nucleated RBC 0.030 H Nucleated RBC % (auto) 0.2 Smear Tech's Comments VERIFIED ESR 14 PT 12.0 INR 1.0 APTT 34.8 Anion Gap 10 L Estim Creat Clear Calc 46.1 Estimated GFR 55 Random Glucose 109 Lactic Acid 0.5 Calcium 8.5 Total Bilirubin 0.4 Direct Bilirubin 0.2 AST 22 ALT 32 H Alkaline Phosphatase 115 Total Protein 5.7 L Albumin 3.4 L Influenza Type A (PCR) NEGATIVE Influenza Type B (PCR) NEGATIVE RSV RNA Qual (PCR) NEGATIVE SARS-CoV-2 RNA (RT-PCR) NEGATIVE Imaging Radiologist's Impressions: Impressions Finger X-Ray 11/16/24 10:08 IMPRESSION: 1. No acute bony abnormalities. 2. Soft tissue swelling dorsal thumb. Electronically signed by: Juan Antonio Zuleta MD 11/16/2024 10:26 AM EDT RP Assessment and Plan (1) Cellulitis of left thumb: Status: Acute Plan Pt is a 69-year-old female with a PMH significant for paroxysmal AFib on Eliquis, AML s/p stem cell transplant in remission for past 15 years, HTN, hypothyroidism, GERD, and mood disorder who presents to the ED for evaluation of left thumb infection. Pt will be admitted to the hospital for treatment and further evaluation of left thumb cellulitis secondary to Mohs surgery that failed outpatient therapy and meets sepsis criteria. Left thumb cellulitis with sepsis Left thumb swelling, erythema, and draining pus x2 days; fever of 102.4 at home today S/p Mohs surgery with graft on 11/05 Started on doxycyline yesterday Meets sepsis criteria with tachycardia and leukocytosis, fever at home; lactic acid WNL Pt given IVF and started on broad-spectrum antibiotics in the ED Will treat with Ancef, started 11/16/2024 Orthopedics consult Follow blood cultures Hx of shingles Reports shingles outbreak 2 years ago Since then has residual pruritus Continue hydroxyzine Paroxysmal AFib Continue Eliquis, diltiazem HTN Continue losartan Hypothyroidism Continue levothyroxine GERD Continue famotidine Mood disorder Continue mood stabilizers Full Code Attending:?Dr. Guillory DVT Prophylaxis:On Eliquis Pt will require a hospitalization of at least two nights for treatment of?left thumb cellulitis secondary to Mohs surgery that failed outpatient therapy and meets sepsis criteria. Pt will require inpatient level of care for administration of IV antibiotics and specialist consultation with Orthopedics. Quality Stroke Does the patient have a stroke diagnosis?: No VTE Prior VTE?: No VTE Risk Level:: Medical - moderate - high VTE Device Contraindication: Treatment Not Indicated VTE Drug Contraindication: N/A - Med Ordered
[2024-11-16 12:15] LABS: Lactic Acid 0.9 mmol/L (0.5-2.0)
[2024-11-16] MEDS: oxyCODONE HCl Immed Release 5 MG TABLET PO (12:45)
[2024-11-16] MEDS: Gabapentin 300 MG CAPSULE PO (13:30)
[2024-11-16] MEDS: DULoxetine HCl 60 MG CAPSULE.DR PO (13:30)
[2024-11-16] MEDS: hydrOXYzine HCL 25 MG TABLET PO (13:30)
--- NOTE | 2024-11-16 13:53 | PHA.MEDREC ---
Pharmacy Consult ? Medication Reconciliation Pharmacy has completed the medication reconciliation. Spoke to patient to confirm med list. patient states she is not taking Budesonide 9 mg, Calcipotrine cream, Cevimeline 30 mg, Escitalopram 20 mg, Fluoride sod 1.1% gel, Furosemide 20 mg, Lidocain patch, L-Lysine 1,000, Ondansertron 4 mg, Vitamin D3-Vitamin K2 and Zinc 25 mg. Patient was a little upset that the nurse only gave her one capsule of Gabapentin 300 mg when patient takes two. Patient asked if she can take one of her Gabapentin. Informed patient not to take any of her medications because we will continue her medications here.
--- NOTE | 2024-11-16 14:03 | PHA.MEDREC ---
Addendum entered by Pedro Anne RPh 11/16/24 14:17: Reviewed by [facility] Original Note: Pharmacy Consult ? Medication Reconciliation Pharmacy has completed the medication reconciliation.Spoke to patient to confirm med list. patient states she is not taking Budesonide 9 mg, Calcipotrine cream, Cevimeline 30 mg, Escitalopram 20 mg, Fluoride sod 1.1% gel, Furosemide 20 mg, Lidocain patch, L-Lysine 1,000, Ondansertron 4 mg, Vitamin D3-Vitamin K2 and Zinc 25 mg. Patient was a little upset that the nurse only gave her one capsule of Gabapentin 300 mg when patient takes two. Patient asked if she can take one of her Gabapentin. Informed patient not to take any of her medications because we will continue her medications here. patient confirmed Estradiol 0.01% cram she only uses once a week on Sundays. Patient states she takes Lorazepam 1 mg q 8 h , However claims has Lorazepam 0.5 mg daily Prn , left what claims has .
--- NOTE | 2024-11-16 15:07 | PM.CNOR ---
History of Present Illness HPI Consult date: 11/16/24 Chief complaint: Left thumb infection Narrative: This is a 69-year-old woman with a past medical history of paroxysmal atrial fibrillation on Eliquis, who presents for evaluation of left thumb infection. Patient states that she had a Mohs procedure and skin graft on her left thumb for a skin cancer on November 05 2024. She states that she was initially doing well, but states that 2 days ago she started noticing some redness and swelling to her left thumb with scant pus. She states that she had a fever to 102.4? F this morning. She states that she took 2 Tylenol and oxycodone prior to arrival. While in the emergency department she was started on IV antibiotics and admitted to the hospital service and Orthopedics was consulted for further recommendations. Review of Systems Review of Systems: Yes all other systems are reviewed and are negative PMFSH Past Medical History Medical History OCD (obsessive compulsive disorder) Left shoulder pain PAF (paroxysmal atrial fibrillation) Major depressive disorder, recurrent, moderate Dysthymia Post herpetic neuralgia Social History Social History Household Members: None Housing: House Do you presently have visiting nurse or other home services: No Alcohol intake: current Alcohol intake frequency: holidays/special occasions only Patient Tobacco Use Status: Never used Tobacco Smoked in Last 30 Days: No Use of substances other than those prescribed or required for medical reasons: Yes Substance Use Type: Marijuana Substance Use Frequency: Daily Advance Directives: Yes Advance Directives Information Provided: Yes Advance Directives on File: No Do you have a plan to hurt others: No Plan service: No Meds Allergies Allergy/AdvReac Type Severity Reaction Status Date / Time vancomycin [VANCOMYCIN] Allergy Mild HIVES Verified 11/16/24 09:42 imipenem [IMIPENEM] Allergy Unknown HIVES Verified 11/16/24 09:42 Penicillins [PENICILLINS] Allergy Unknown UNKNOWN Verified 11/16/24 09:42 lisinopril [LISINOPRIL] AdvReac Unknown COUGH Verified 11/16/24 09:42 Active Medications: Current Medications Acetaminophen (Acetaminophen 325 Mg Tablet) 650 mg PO Q6H PRN PRN Reason: Pain, Mild 1-3,fever,headache Calcium Carbonate (Calcium Carbonate 750 Mg Tab.Chew) 750 mg PO Q4H PRN PRN Reason: Heartburn Hydroxyzine HCl (Hydroxyzine Hcl 25 Mg Tablet) 25 mg PO Q8H PRN PRN Reason: Itching Last Admin: 11/16/24 13:30 Dose: 25 mg Cefazolin Sodium/Dextrose (Ancef) 2 gm in 50 mls @ 100 mls/hr IV Q8H [facility] Magnesium Hydroxide (Milk Of Magnesia 30 Ml Oral.Susp) 30 ml PO DAILY PRN PRN Reason: Constipation Melatonin (Melatonin 3 Mg Tablet) 6 mg PO BEDTIME PRN PRN Reason: Insomnia Morphine Sulfate (Morphine Sulfate 2 Mg/Ml Cartridge) 2 mg IVPUSH Q4H PRN; Protocol PRN Reason: Pain, Severe (Pain Scale 7-10) Ondansetron HCl (Ondansetron Hcl 4 Mg/2 Ml Vial) 4 mg IVPUSH Q8H PRN PRN Reason: Nausea and Vomiting Sodium Chloride (0.9 % Sodium Chloride Flush 3 Ml Syringe) [facility] Last Admin: 11/16/24 14:49 Dose: Not Given Home Medications ?Medication ?Instructions ?Recorded ?Confirmed ?Last Taken ?Type gabapentin 300 mg capsule 600 mg PO TID 10/13/23 11/16/24 11/15/24 History oxycodone 5 mg tablet 10 mg PO Q4H PRN Pain 10/13/23 11/16/24 Unknown History estradiol 0.01% (0.1 mg/gram) 1 appl vaginal MARRUFO 10/28/23 11/16/24 Unknown History vaginal cream famotidine 20 mg tablet 20 mg PO BID 10/28/23 11/16/24 11/15/24 History folic acid 1 mg tablet 1 mg PO DAILY 10/28/23 11/16/24 11/15/24 History losartan 25 mg tablet 25 mg PO DAILY 10/28/23 11/16/24 11/15/24 History valacyclovir 500 mg tablet 500 mg PO BID 02/20/24 11/16/24 11/15/24 History hydroxyzine HCl 25 mg tablet 25 mg PO Q8H PRN itching 07/13/24 11/16/24 Unknown History apixaban 2.5 mg tablet (Eliquis) 2.5 mg PO BID 08/10/24 11/16/24 11/15/24 History diltiazem HCl 240 mg 240 mg PO DAILY 08/10/24 11/16/24 11/15/24 History capsule,extended release 24 hr empagliflozin 10 mg tablet 10 mg PO DAILY 08/10/24 11/16/24 11/15/24 History (Jardiance) Lactobacillus acidophilus 10 10,000 mmu cells PO DAILY 09/23/24 11/16/24 11/15/24 History billion cell capsule (Probiotic) acetaminophen 500 mg tablet 500 mg PO Q6H PRN Pain 09/23/24 11/16/24 Unknown History multivitamin 1 tab PO DAILY 09/23/24 11/16/24 11/15/24 History cyclosporine 0.05 % eye drops in a 1 drp ophthalmic (eye) BID 11/16/24 11/16/24 11/15/24 History dropperette (Restasis) doxycycline monohydrate 100 mg 100 mg PO BID 11/16/24 11/16/24 11/15/24 History capsule duloxetine 60 mg capsule,delayed 60 mg PO BID 11/16/24 11/16/24 11/15/24 History release levothyroxine 112 mcg tablet 112 mcg PO DAILY@0600 11/16/24 11/16/24 11/15/24 History Physical Exam Vital Signs: Vital Signs: Last Vital Signs Temp 98.4 F 11/16/24 13:16 Pulse 90 11/16/24 13:16 Resp 18 11/16/24 13:16 BP 166/82 H 11/16/24 13:16 Pulse Ox 98 11/16/24 13:16 O2 Del Method Room Air 11/16/24 13:16 BMI result Body Mass Index 18.7 Const: General: cooperative and no acute distress Orientation/consciousness: patient oriented x3 Resp: Effort & Inspection: normal respiratory effort and able to speak in complete sentences Cardio: Peripheral pulses: Peripheral pulses 2+ throughout Neuro: General: patient oriented x3 Extrem: Other: Left thumb has a surgical wound over the proximal aspect of the dorsum side of the thumb. This wound has clean borders. No active drainage. There is redness surrounding the wound with some swelling. No evidence of abscess formation. No redness swelling or pain over the palmar aspect of the hand or in the deep web spaces or flexor tendons. Neurovascularly intact. Results Labs 11/16/24 10:43 03/14/25 10:43 Labs: Abnormal lab results 11/16/24 Range/Units 10:43 WBC 19.4 H (4.8-10.8) X10*3/uL RBC 2.74 L (4.20-5.50) X10*6/uL Hgb 9.8 L (12.0-16.0) g/dl Hct 27.5 L (37.0-47.0) % MCV 100.4 H (80.0-98.0) fL MCH 35.8 H (27.0-33.0) pg MCHC 35.6 H (31.0-35.0) g/dl RDW 18.6 H (11.0-16.0) % Immature Gran % (Auto) 0.6 H (0.0-0.4) % Neut % (Auto) 83.8 H (45-73) % Lymph % (Auto) 6.1 L (20-40) % [place] # (Auto) 1.6 H (0.1-1.2) X10*3/uL Abs Immat Gran (auto) 0.11 H (0.00-0.03) X10*3/uL Absolute Neuts (auto) 16.3 H (2.0-8.3) x10*3/uL Absolute Nucleated RBC 0.030 H (0.0-0.012) X10*3/uL Anion Gap 10 L (12-20) BUN 28 H (9-16) mg/dL ALT 32 H (0-31) U/L Total Protein 5.7 L (6.5-8.0) g/dL Albumin 3.4 L (3.5-5.0) g/dL H & H 11/16/24 Range/Units 10:43 Hgb 9.8 L (12.0-16.0) g/dl Hct 27.5 L (37.0-47.0) % Coagulation 11/16/24 Range/Units 10:43 INR 1.0 (0.9-1.1) All other labs normal. Assessment and Plan (1) Cellulitis of left thumb: Status: Acute Plan XR finger LT min 2V IMPRESSION: 1. No acute bony abnormalities. 2. Soft tissue swelling dorsal thumb. Cellulitis left thumb status post Mohs treatment Recommend IV antibiotics per Medicine No further orthopedic intervention at this time. Procedures Date of Service Date of Service: 11/16/24
[2024-11-16] MEDS: Morphine Sulfate 2 MG/ML CARTRIDGE IVPUSH (16:59)
[2024-11-16] MEDS: oxyCODONE HCl Immed Release 5 MG TABLET 10 MG PO (18:48)
[2024-11-16] MEDS: Losartan Potassium 25 MG TABLET PO (18:54)
[2024-11-16] MEDS: Apixaban 2.5 MG TABLET PO (20:49)
[2024-11-16] MEDS: valACYclovir HCL 500 MG TABLET PO (20:49)
[2024-11-16] MEDS: Mirtazapine 7.5 MG TABLET PO (20:49)
[2024-11-16] MEDS: Famotidine 20 MG TABLET PO (20:49)
[2024-11-16] MEDS: Gabapentin 300 MG CAPSULE 600 MG PO (20:49)
[2024-11-16] MEDS: 0.9 % Sodium Chloride Flush 3 ML SYRINGE IVFLUSH (20:50)
[2024-11-16] MEDS: LORazepam 0.5 MG TABLET PO (22:20)
[2024-11-17 04:00] VITALS: BP 134/65; PULSE 89; RESP 16; TEMP 36.9; O2SAT 95
[2024-11-17] MEDS: ceFAZolin Sodium/Dextrose,Iso 2 GM/50 ML PIGGYBACK IV ×3 (06:05→20:42)
[2024-11-17] MEDS: oxyCODONE HCl Immed Release 5 MG TABLET 10 MG PO ×4 (06:14→20:45)
[2024-11-17] MEDS: Levothyroxine Sodium 112 MCG TABLET PO (06:14)
[2024-11-17] MEDS: hydrOXYzine HCL 25 MG TABLET PO ×2 (07:12→23:24)
[2024-11-17 08:00] VITALS: BP 127/61; PULSE 84; RESP 18; TEMP 37; O2SAT 96
[2024-11-17 08:11] LABS: Hematocrit 26.9 % (37.0-47.0); Hemoglobin 9.3 g/dl (12.0-16.0); Mean Corpuscular HGB Conc 34.6 g/dl (31.0-35.0); Mean Corpuscular Hemoglobin 35.2 pg (27.0-33.0); Mean Corpuscular Volume 101.9 fL (80.0-98.0); Platelet Count 256 X10*3/uL (160-400); Red Blood Count 2.64 X10*6/uL (4.20-5.50); Red Cell Distribution Width 18.8 % (11.0-16.0); White Blood Count 14.5 X10*3/uL (4.8-10.8)
[2024-11-17 08:45] LABS: Anion Gap 10 (12-20); Blood Urea Nitrogen 19 mg/dL (9-16); Calcium 8.4 mg/dL (8.4-10.2); Carbon Dioxide 26 mmol/L (22-29); Chloride 106 mmol/L (96-108); Creatinine Clr Calc Pharmacy 56.2; Estimated Glomerular Filt Rate > 60; Glucose Random 92 mg/dL (60-115); Potassium 4.3 mmol/L (3.3-5.1); Sodium 138 mmol/L (135-145)
[2024-11-17] MEDS: valACYclovir HCL 500 MG TABLET PO ×2 (08:46→20:40)
[2024-11-17] MEDS: Folic Acid 1 MG TABLET PO (08:46)
[2024-11-17] MEDS: Gabapentin 300 MG CAPSULE 600 MG PO ×3 (08:46→20:41)
[2024-11-17] MEDS: Losartan Potassium 25 MG TABLET PO (08:46)
[2024-11-17] MEDS: dilTIAZem HCL CD 240 MG CAP.ER.DEG PO (08:47)
[2024-11-17] MEDS: Famotidine 20 MG TABLET PO ×2 (08:47→20:40)
[2024-11-17] MEDS: DULoxetine HCl 60 MG CAPSULE.DR PO ×2 (08:47→20:40)
[2024-11-17] MEDS: Apixaban 2.5 MG TABLET PO ×2 (08:47→20:40)
[2024-11-17] MEDS: Multivitamin TABLET 1 TAB PO (08:47)
[2024-11-17] MEDS: Empagliflozin 10 MG TABLET PO (08:48)
[2024-11-17 12:00] VITALS: BP 103/63; PULSE 86; RESP 20; TEMP 36.1; O2SAT 97
--- NOTE | 2024-11-17 14:37 | P.PNIM_ITS ---
Subjective Subjective Date of Service: 11/17/24 Interval History: Being followed for left thumb cellulitis/wound Denies fever, feels left arm swelling erythema unchanged, tolerating diet no nausea, no vomiting or abdominal pain, no acute issues overnight. Review of Systems All other system reviewed and are negative Physical Exam 2 Vital Signs: Vital Signs: Last Vital Signs Temp 97.0 F 11/17/24 12:00 Pulse 86 11/17/24 12:00 Resp 20 11/17/24 12:00 BP 103/63 11/17/24 12:00 Pulse Ox 97 11/17/24 12:00 O2 Del Method Room Air 11/17/24 12:00 BMI result Body Mass Index 18.7 Const: Other: General: AOx3, no acute distress No JVD Resp: CTA bilaterally CVS: S1, S2, RRR GI: +BS, NT, no distention Skin: Warm, dry Neuro: Nonfocal Extremities: Left thumb with erythema, warmth, and swelling, minimal change since admission. Psych: Appropriate affect Objective Data Active Medications Acetaminophen (Acetaminophen 325 Mg Tablet) 650 mg PO Q6H PRN PRN Reason: Pain, Mild 1-3,fever,headache Apixaban (Apixaban 2.5 Mg Tablet) 2.5 mg PO BID [facility] Last Admin: 11/17/24 08:47 Dose: 2.5 mg Documented By: EDDY Calcium Carbonate (Calcium Carbonate 750 Mg Tab.Chew) 750 mg PO Q4H PRN PRN Reason: Heartburn Diltiazem HCl (Diltiazem Hcl Cd 240 Mg Cap.Er.Deg) 240 mg PO DAILY [facility]; Protocol Last Admin: 11/17/24 08:47 Dose: 240 mg Documented By: EDDY Duloxetine HCl (Duloxetine Hcl 60 Mg Capsule.Dr) 60 mg PO BID [facility] Last Admin: 11/17/24 08:47 Dose: 60 mg Documented By: EDDY Empagliflozin (Empagliflozin 10 Mg Tablet) 10 mg PO DAILY [facility] Last Admin: 11/17/24 08:48 Dose: 10 mg Documented By: EDDY Famotidine (Famotidine 20 Mg Tablet) 20 mg PO BID [facility] Last Admin: 11/17/24 08:47 Dose: 20 mg Documented By: EDDY Folic Acid (Folic Acid 1 Mg Tablet) 1 mg PO DAILY [facility] Last Admin: 11/17/24 08:46 Dose: 1 mg Documented By: EDDY Gabapentin (Gabapentin 300 Mg Capsule) 600 mg PO TID [facility] Last Admin: 11/17/24 08:46 Dose: 600 mg Documented By: EDDY Hydroxyzine HCl (Hydroxyzine Hcl 25 Mg Tablet) 25 mg PO Q8H PRN PRN Reason: Itching Last Admin: 11/17/24 07:12 Dose: 25 mg Documented By: MARY BETH Hydroxyzine HCl (Hydroxyzine Hcl 25 Mg Tablet) 25 mg PO Q8H PRN PRN Reason: itching Cefazolin Sodium/Dextrose (Ancef) 2 gm in 50 mls @ 100 mls/hr IV Q8H [facility] Levothyroxine Sodium (Levothyroxine Sodium 112 Mcg Tablet) 112 mcg PO DAILY@0600 [facility] Last Admin: 11/17/24 06:14 Dose: 112 mcg Documented By: MARY BETH Lorazepam (Lorazepam 0.5 Mg Tablet) 0.5 mg PO DAILY PRN PRN Reason: anxiety Last Admin: 11/16/24 22:20 Dose: 0.5 mg Documented By: DARREN Losartan Potassium (Losartan Potassium 25 Mg Tablet) 25 mg PO DAILY [facility]; Protocol Last Admin: 11/17/24 08:46 Dose: 25 mg Documented By: EDDY Magnesium Hydroxide (Milk Of Magnesia 30 Ml Oral.Susp) 30 ml PO DAILY PRN PRN Reason: Constipation Melatonin (Melatonin 3 Mg Tablet) 6 mg PO BEDTIME PRN PRN Reason: Insomnia Mirtazapine (Mirtazapine 7.5 Mg Tablet) 7.5 mg PO BEDTIME [facility] Last Admin: 11/16/24 20:49 Dose: 7.5 mg Documented By: MARY BETH Morphine Sulfate (Morphine Sulfate 2 Mg/Ml Cartridge) 2 mg IVPUSH Q4H PRN; Protocol PRN Reason: Pain, Severe (Pain Scale 7-10) Last Admin: 11/16/24 16:59 Dose: 2 mg Documented By: SONIA Multivitamins/Vitamin C (Multivitamin Tablet) 1 tab PO DAILY [facility] Last Admin: 11/17/24 08:47 Dose: 1 tab Documented By: EDDY Ondansetron HCl (Ondansetron Hcl 4 Mg/2 Ml Vial) 4 mg IVPUSH Q8H PRN PRN Reason: Nausea and Vomiting Oxycodone HCl (Oxycodone Hcl Immed Release 5 Mg Tablet) 10 mg PO Q4H PRN PRN Reason: Pain, Moderate(Pain Scale 4-6) Last Admin: 11/17/24 10:26 Dose: 10 mg Documented By: EDDY Sodium Chloride (0.9 % Sodium Chloride Flush 3 Ml Syringe) 3 ml IVFLUSH QSHIFT [facility] Last Admin: 11/17/24 08:57 Dose: Not Given Documented By: EDDY Non-Admin Reason: Previously Administered Valacyclovir HCl (Valacyclovir Hcl 500 Mg Tablet) 500 mg PO BID [facility] Last Admin: 11/17/24 08:46 Dose: 500 mg Documented By: EDDY Labs 11/17/24 06:43 11/17/24 06:43 Labs: Laboratory Results - last 24 hr 11/17/24 06:43 MCV 101.9 H MCH 35.2 H MCHC 34.6 RDW 18.8 H Plt Count 256 MPV 10.0 Absolute Nucleated RBC 0.000 Nucleated RBC % (auto) 0.0 Anion Gap 10 L Estim Creat Clear Calc 56.2 Estimated GFR > 60 Random Glucose 92 Calcium 8.4 Microbiology Microbiology Results: Microbiology 11/16/24 10:43 Blood Culture - Preliminary Blood - Venous No growth after 24 hours. 11/16/24 10:43 Blood Culture - Preliminary Blood - Venous No growth after 24 hours. Assessment and Plan (1) Sepsis: Status: Acute (2) Cellulitis of left thumb: Status: Acute Plan 69-year-old female with a PMH significant for paroxysmal AFib on Eliquis, AML s/p stem cell transplant in remission for past 15 years, HTN, hypothyroidism, GERD, and mood disorder who presents to the ED for evaluation of left thumb infection. Pt will be admitted to the hospital for treatment and further evaluation of left thumb cellulitis secondary to Mohs surgery that failed outpatient therapy and meets sepsis criteria. Left thumb cellulitis with sepsis Persistent swelling and erythema, fever resolved, no drainage noted ,S/p Mohs surgery with graft on 11/05, was placed on doxycycline day prior to admission Fever resolved, WBC trending down Continue IV Ancef, started 11/16/2024, keep thumb elevated Seen by Ortho they recommend no further intervention Wound consult pending blood cultures x2 neg x 24h Hx of shingles Reports shingles outbreak 2 years ago,Since then has residual pruritus, Continue hydroxyzine Paroxysmal AFib Continue Eliquis, diltiazem HTN Continue losartan Hypothyroidism Continue levothyroxine GERD Continue famotidine Mood disorder Continue mood stabilizers Full Code DVT Prophylaxis:On Eliquis Pt will require continued inpatient hospitalization for treatment of?left thumb cellulitis secondary to Mohs surgery that failed outpatient therapy and meets sepsis criteria requiring IV antibiotics and close clinical follow-up. Quality Stroke Does the patient have a stroke diagnosis?: No VTE Prior VTE?: No VTE Risk Level:: Medical - moderate - high VTE Device Contraindication: Treatment Not Indicated VTE Drug Contraindication: N/A - Med Ordered
[2024-11-17 16:00] VITALS: BP 123/64; PULSE 78; RESP 14; TEMP 37.1; O2SAT 98
[2024-11-17 19:59] VITALS: BP 101/56; PULSE 83; RESP 20; TEMP 36.6; O2SAT 98
[2024-11-17] MEDS: Mirtazapine 7.5 MG TABLET PO (20:41)
[2024-11-17] MEDS: 0.9 % Sodium Chloride Flush 3 ML SYRINGE IVFLUSH (20:42)
[2024-11-17] MEDS: LORazepam 0.5 MG TABLET PO (23:04)
[2024-11-17 23:25] VITALS: BP 117/61; PULSE 88; RESP 20; TEMP 37; O2SAT 100
[2024-11-18 03:38] VITALS: BP 119/57; PULSE 77; RESP 16; TEMP 36.3; O2SAT 94
[2024-11-18] MEDS: Levothyroxine Sodium 112 MCG TABLET PO (05:07)
[2024-11-18] MEDS: ceFAZolin Sodium/Dextrose,Iso 2 GM/50 ML PIGGYBACK IV ×3 (05:07→21:34)
[2024-11-18] MEDS: oxyCODONE HCl Immed Release 5 MG TABLET 10 MG PO ×3 (05:07→18:01)
[2024-11-18 06:59] LABS: Hematocrit 25.5 % (37.0-47.0); Mean Corpuscular HGB Conc 35.3 g/dl (31.0-35.0); Mean Corpuscular Hemoglobin 35.4 pg (27.0-33.0); Mean Corpuscular Volume 100.4 fL (80.0-98.0); Mean Platelet Volume 9.6 fL (9.4-12.3); NRBC Pct Auto 0.2 /100WBC (0.0-0.2); Platelet Count 225 X10*3/uL (160-400); Red Blood Count 2.54 X10*6/uL (4.20-5.50); Red Cell Distribution Width 18.4 % (11.0-16.0); White Blood Count 9.3 X10*3/uL (4.8-10.8)
[2024-11-18 07:52] VITALS: BP 149/74; PULSE 81; RESP 20; TEMP 36.4; O2SAT 94
[2024-11-18] MEDS: Gabapentin 300 MG CAPSULE 600 MG PO ×3 (08:37→21:30)
[2024-11-18] MEDS: Losartan Potassium 25 MG TABLET PO (08:37)
[2024-11-18] MEDS: Multivitamin TABLET 1 TAB PO (08:37)
[2024-11-18] MEDS: DULoxetine HCl 60 MG CAPSULE.DR PO ×2 (08:38→14:52)
[2024-11-18] MEDS: dilTIAZem HCL CD 240 MG CAP.ER.DEG PO (08:38)
[2024-11-18] MEDS: Folic Acid 1 MG TABLET PO (08:38)
[2024-11-18] MEDS: Famotidine 20 MG TABLET PO ×2 (08:38→21:31)
[2024-11-18] MEDS: valACYclovir HCL 500 MG TABLET PO ×2 (08:38→21:31)
[2024-11-18] MEDS: Apixaban 2.5 MG TABLET PO ×2 (08:38→21:31)
[2024-11-18] MEDS: Empagliflozin 10 MG TABLET PO (08:38)
--- NOTE | 2024-11-18 09:18 | MHC.CM.PN ---
PT REPORTS SHE CURRENTLY LIVES ALONE, HOWEVER IS IN THE PROCESS OF SELLING HER HOME AND MOVING TO A [facility] SHE IS INDEPENDENT WITH ALL CARE AND MOBILITY SHE REPORTS SHE HAS A HCP NAMING HER SISTER, GILBERT CUADRA AND SON, WILLIE LAN, HER PRIMARY AND ALT AGENTS RESPECTIVELY PCP: SHAYLEE JENSEN IMM DELIVERED DCP: HOME NO SERVICES VIA PRIVATE TRANSPORT
--- NOTE | 2024-11-18 11:24 | HO.PM.IMPN ---
Subjective Subjective Date of Service: 11/18/24 Interval History: Being followed for left thumb cellulitis /wound No recurrent fevers, concern about thumb, tolerating diet no nausea, no vomiting, no abdominal pain, no other acute events overnight. Review of Systems All other system reviewed and are negative. Physical Exam Vital Signs: Vital Signs: Last Vital Signs Temp 97.5 F 11/18/24 07:52 Pulse 81 11/18/24 07:52 Resp 20 11/18/24 07:52 BP 149/74 H 11/18/24 07:52 Pulse Ox 94 11/18/24 07:52 O2 Del Method Room Air 11/18/24 07:52 BMI result Body Mass Index 18.7 Const: Other: General: AOx3, no acute distress No JVD Resp: CTA bilaterally CVS: S1, S2, RRR GI: +BS, NT, no distention Skin: Warm, dry Neuro: Nonfocal Extremities: Left thumb swelling and erythema improved , wound bed with some areas of granulation tissue . Psych: Appropriate affect Objective Data Active Medications Acetaminophen (Acetaminophen 325 Mg Tablet) 650 mg PO Q6H PRN PRN Reason: Pain, Mild 1-3,fever,headache Apixaban (Apixaban 2.5 Mg Tablet) 2.5 mg PO BID [facility] Last Admin: 11/18/24 08:38 Dose: 2.5 mg Documented By: EDDY Calcium Carbonate (Calcium Carbonate 750 Mg Tab.Chew) 750 mg PO Q4H PRN PRN Reason: Heartburn Diltiazem HCl (Diltiazem Hcl Cd 240 Mg Cap.Er.Deg) 240 mg PO DAILY [facility]; Protocol Last Admin: 11/18/24 08:38 Dose: 240 mg Documented By: EDDY Duloxetine HCl (Duloxetine Hcl 60 Mg Capsule.Dr) 60 mg PO BID [facility] Last Admin: 11/18/24 08:38 Dose: 60 mg Documented By: EDDY Empagliflozin (Empagliflozin 10 Mg Tablet) 10 mg PO DAILY [facility] Last Admin: 11/18/24 08:38 Dose: 10 mg Documented By: EDDY Famotidine (Famotidine 20 Mg Tablet) 20 mg PO BID [facility] Last Admin: 11/18/24 08:38 Dose: 20 mg Documented By: EDDY Folic Acid (Folic Acid 1 Mg Tablet) 1 mg PO DAILY [facility] Last Admin: 11/18/24 08:38 Dose: 1 mg Documented By: EDDY Gabapentin (Gabapentin 300 Mg Capsule) 600 mg PO TID [facility] Last Admin: 11/18/24 08:37 Dose: 600 mg Documented By: EDDY Hydroxyzine HCl (Hydroxyzine Hcl 25 Mg Tablet) 25 mg PO Q8H PRN PRN Reason: Itching Last Admin: 11/17/24 23:24 Dose: 25 mg Documented By: MEGAN Comments: skin graft itchy Hydroxyzine HCl (Hydroxyzine Hcl 25 Mg Tablet) 25 mg PO Q8H PRN PRN Reason: itching Cefazolin Sodium/Dextrose (Ancef) 2 gm in 50 mls @ 100 mls/hr IV Q8H [facility] Last Admin: 11/18/24 05:07 Dose: 100 mls/hr Documented By: MEGAN Levothyroxine Sodium (Levothyroxine Sodium 112 Mcg Tablet) 112 mcg PO DAILY@0600 [facility] Last Admin: 11/18/24 05:07 Dose: 112 mcg Documented By: MEGAN Lorazepam (Lorazepam 0.5 Mg Tablet) 0.5 mg PO DAILY PRN PRN Reason: anxiety Last Admin: 11/17/24 23:04 Dose: 0.5 mg Documented By: DARREN Losartan Potassium (Losartan Potassium 25 Mg Tablet) 25 mg PO DAILY [facility]; Protocol Last Admin: 11/18/24 08:37 Dose: 25 mg Documented By: EDDY Magnesium Hydroxide (Milk Of Magnesia 30 Ml Oral.Susp) 30 ml PO DAILY PRN PRN Reason: Constipation Melatonin (Melatonin 3 Mg Tablet) 6 mg PO BEDTIME PRN PRN Reason: Insomnia Mirtazapine (Mirtazapine 7.5 Mg Tablet) 7.5 mg PO BEDTIME [facility] Last Admin: 11/17/24 20:41 Dose: 7.5 mg Documented By: MEGAN Morphine Sulfate (Morphine Sulfate 2 Mg/Ml Cartridge) 2 mg IVPUSH Q4H [facility]; Protocol PRN Reason: Pain, Severe (Pain Scale 7-10) Last Admin: 11/16/24 16:59 Dose: 2 mg Documented By: SONIA Multivitamins/Vitamin C (Multivitamin Tablet) 1 tab PO DAILY [facility] Last Admin: 11/18/24 08:37 Dose: 1 tab Documented By: EDDY Ondansetron HCl (Ondansetron Hcl 4 Mg/2 Ml Vial) 4 mg IVPUSH Q8H PRN PRN Reason: Nausea and Vomiting Oxycodone HCl (Oxycodone Hcl Immed Release 5 Mg Tablet) 10 mg PO Q4H PRN PRN Reason: Pain, Moderate(Pain Scale 4-6) Last Admin: 11/18/24 09:32 Dose: 10 mg Documented By: EDDY Sodium Chloride (0.9 % Sodium Chloride Flush 3 Ml Syringe) 3 ml IVFLUSH QSHIFT [facility] Last Admin: 11/18/24 10:07 Dose: Not Given Documented By: EDDY Non-Admin Reason: Previously Administered Valacyclovir HCl (Valacyclovir Hcl 500 Mg Tablet) 500 mg PO BID [facility] Last Admin: 11/18/24 08:38 Dose: 500 mg Documented By: EDDY Labs 11/18/24 06:09 11/17/24 06:43 Labs: Laboratory Results - last 24 hr 11/18/24 06:09 MCV 100.4 H MCH 35.4 H MCHC 35.3 H RDW 18.4 H Plt Count 225 MPV 9.6 Absolute Nucleated RBC 0.020 H Nucleated RBC % (auto) 0.2 Microbiology Microbiology Results: Microbiology 11/16/24 10:43 Blood Culture - Preliminary Blood - Venous No growth after 24 hours. 11/16/24 10:43 Blood Culture - Preliminary Blood - Venous No growth after 24 hours. Assessment and Plan (1) Cellulitis of left thumb: Status: Acute (2) Sepsis: Status: Acute Plan 69-year-old female with a PMH significant for paroxysmal AFib on Eliquis, AML s/p stem cell transplant in remission for past 15 years, HTN, hypothyroidism, GERD, and mood disorder who presents to the ED for evaluation of left thumb infection. Pt will be admitted to the hospital for treatment and further evaluation of left thumb cellulitis secondary to Mohs surgery that failed outpatient therapy and meets sepsis criteria. Left thumb cellulitis with sepsis swelling and erythema left hand improving, fever resolved, no drainage noted ,S/p Mohs surgery with graft on 11/05, was placed on doxycycline day prior to admission Fever resolved, WBC normalized, blood cultures x2 negative Continue IV Ancef, started 11/16/2024, keep thumb elevated, will transition to by mouth antibiotic and possible discharge after wound care Advised to rest left thumb and avoid heavy lifting and repetitive left hand movement for good healing. Seen by Ortho they recommend no further intervention Wound consult pending/wound bed moist appearing with some granulation tissue. Hx of shingles Reports shingles outbreak 2 years ago,Since then has residual pruritus, Continue hydroxyzine and moisturizing cream. Paroxysmal AFib Continue Eliquis, diltiazem HTN Continue losartan Hypothyroidism Continue levothyroxine GERD Continue famotidine Mood disorder Continue mood stabilizers Full Code DVT Prophylaxis:On Eliquis Pt will require continued inpatient hospitalization for treatment of?left thumb cellulitis secondary to Mohs surgery that failed outpatient therapy and meets sepsis criteria requiring IV antibiotics and close clinical follow-up. Quality Stroke Does the patient have a stroke diagnosis?: No VTE Prior VTE?: No VTE Risk Level:: Medical - moderate - high VTE Device Contraindication: Treatment Not Indicated VTE Drug Contraindication: N/A - Med Ordered
[2024-11-18] MEDS: hydrOXYzine HCL 25 MG TABLET PO ×2 (11:36→21:30)
[2024-11-18 12:00] VITALS: BP 98/59; PULSE 82; RESP 20; TEMP 36.4; O2SAT 97
[2024-11-18] MEDS: 0.9 % Sodium Chloride Flush 3 ML SYRINGE IVFLUSH ×2 (14:58→21:36)
[2024-11-18 15:36] VITALS: BP 99/54; PULSE 77; RESP 20; TEMP 36.6; O2SAT 100
[2024-11-18 20:02] VITALS: BP 123/66; PULSE 84; RESP 16; TEMP 36.3; O2SAT 96
[2024-11-18] MEDS: Mirtazapine 7.5 MG TABLET PO (21:31)
[2024-11-18] MEDS: LORazepam 0.5 MG TABLET PO (21:33)
[2024-11-18] MEDS: Calamine/Zinc Oxide LOTION 177 ML BOTTLE 1 APPL TOPICAL (22:13)
[2024-11-19] VITALS: BP 104/54; PULSE 84; RESP 20; TEMP 36.6; O2SAT 96
[2024-11-19 03:41] VITALS: BP 129/63; PULSE 77; RESP 16; TEMP 36.7; O2SAT 94
[2024-11-19] MEDS: Levothyroxine Sodium 112 MCG TABLET PO (05:19)
[2024-11-19] MEDS: ceFAZolin Sodium/Dextrose,Iso 2 GM/50 ML PIGGYBACK IV (05:22)
[2024-11-19 07:14] VITALS: BP 133/72; PULSE 98; RESP 18; TEMP 37; O2SAT 95
[2024-11-19 08:09] LABS: CRP High Sensitivity >20.0 mg/L
[2024-11-19] MEDS: dilTIAZem HCL CD 240 MG CAP.ER.DEG PO (08:32)
[2024-11-19] MEDS: Famotidine 20 MG TABLET PO (08:33)
[2024-11-19] MEDS: DULoxetine HCl 60 MG CAPSULE.DR PO ×2 (08:33→14:31)
[2024-11-19] MEDS: Empagliflozin 10 MG TABLET PO (08:33)
[2024-11-19] MEDS: Folic Acid 1 MG TABLET PO (08:33)
[2024-11-19] MEDS: Apixaban 2.5 MG TABLET PO (08:33)
[2024-11-19] MEDS: Losartan Potassium 25 MG TABLET PO (08:33)
[2024-11-19] MEDS: oxyCODONE HCl Immed Release 5 MG TABLET 10 MG PO ×2 (08:33→14:35)
[2024-11-19] MEDS: valACYclovir HCL 500 MG TABLET PO (08:33)
[2024-11-19] MEDS: Multivitamin TABLET 1 TAB PO (08:33)
[2024-11-19] MEDS: Gabapentin 300 MG CAPSULE 600 MG PO ×2 (08:33→14:32)
[2024-11-19] MEDS: 0.9 % Sodium Chloride Flush 3 ML SYRINGE IVFLUSH (08:45)
[2024-11-19] MEDS: hydrOXYzine HCL 25 MG TABLET PO (08:51)
[2024-11-19 11:05] VITALS: BP 118/65; PULSE 89; RESP 18; TEMP 36.7; O2SAT 98
[2024-11-19 11:50] VITALS: BMI 19.3
--- NOTE | 2024-11-19 12:59 | PM.DS ---
DS: Providers Provider Date of Service: 11/19/24 Date of admission: 11/16/24 12:55 Date of discharge: 11/19/24 Primary care physician: Eva Monreal MD Consults: 11/16/24 12:52 Consult to Orthopedics Routine Consulting Provider: [facility] Reason for consultation: Right thumb cellulitis s/o Mohs surgery 11/16/24 18:36 Consult to Wound Care Routine Reason for consultation: multilpe wounds from skin CA 11/19/24 08:42 Consult to Wound Care Routine Reason for consultation: please consult Dr Bocanegra DS: Diagnosis Discharge Diagnosis (1) Cellulitis of left thumb: Status: Acute (2) Sepsis: Status: Acute (3) Skin graft infection: Status: Acute DS: Summary Hospital Course Hospital Course: From the history and physical by the admitting hospitalist, LETTY Mcdonald, 11/16/24: Pt is a 69-year-old female with a PMH significant for paroxysmal AFib on Eliquis, AML s/p stem cell transplant in remission for past 15 years, HTN, hypothyroidism, GERD, and mood disorder who presents to the ED for evaluation of left thumb infection. Pt recently had a Mohs surgery performed on 11/05 at [facility]. pt reports had a graft taken from her left flank. Thumb was initially covered for one week, and when pt removed dressing sent a picture to surgeon's office who said it okay. Yesterday morning pt noticed area was swollen, red, and painful. Also noticed some pus-like drainage. Spoke to surgeon's office again and was started on doxycycline which she took 2 doses yesterday and 1 dose today. This morning pt's symptoms worsened and she spiked a fever measured at home of 102.4, which prompted her visit to the ED today. Reports some nausea after taking doxycycline, but no vomiting. Denies abdominal pain. No chest pain/pressure, palpitations. Denies difficulty breathing or SOB. No cough. In the ED pt was febrile up to 100.3, tachycardic up to 98, and hypertensive at 143/83. Labs were significant for leukocytosis of 19.9 otherwise grossly unremarkable and around baseline for pt. Stable microcytic anemia of 9.8/27.5. No significant electrolyte abnormalities. Renal function baseline. Lactic acid WNL at 0.5. Hepatic function WNL. Tested negative for flu, COVID, RSV. X-ray of left thumb negative for acute bony abnormality. EKG demonstrated sinus rhythm PACs, similar prior. Pt was treated with IVF and Ancef. Pt will be admitted to the hospital for treatment and further evaluation of left thumb cellulitis secondary to Mohs surgery that failed outpatient therapy and meets sepsis criteria. She was admitted to the hospitalist service. She had been started on doxycycline the day prior to admission here. Here, she was treated with IV cefazolin and fever/leukocytosis resolved; blood cultures were negative. She was seen in consultation by Orthopedics and Wound Care. Wound appears moist with granulation tissue. She was discharged on PO cephlaexin and topical mupirocin with follow-up with [facility] in 1 week. Time Attestation Discharge Coordination Time (in mins): 35 Quality: Safe Use of Opioids Does Pt have an Active Cancer Diagnosis on the Problem List?: No Quality: Stroke Does the patient have a stroke diagnosis?: No Physical Exam Vital Signs: Vital Signs: Last Vital Signs Temp 98.1 F 11/19/24 11:05 Pulse 89 11/19/24 11:05 Resp 18 11/19/24 11:05 BP 118/65 11/19/24 11:05 Pulse Ox 98 11/19/24 11:05 O2 Del Method Room Air 11/19/24 11:05 BMI result Body Mass Index 19.3 Gen: in no acute distress HEENT: sclera anicteric, moist mucus membranes Neck: supple Lungs: clear to auscultation bilaterally Heart: regular rate and rhythm, no murmurs Abd: soft, non-tender, non-distended Ext: no edema Skin: warm/well-perfused, L thumb wound with minimal surrounding induration and erythema, wound bed with granulation tissue Neuro: alert and oriented x3, no focal findings Psych: appropriate affect DS: Data Data Completed and Pending Completed studies during hospitalization [Text1]: Laboratory Results WBC 9.3 X10*3/uL (4.8-10.8) 11/18/24 06:09 RBC 2.54 X10*6/uL (4.20-5.50) L 11/18/24 06:09 Hgb 9.0 g/dl (12.0-16.0) L 11/18/24 06:09 Hct 25.5 % (37.0-47.0) L 11/18/24 06:09 MCV 100.4 fL (80.0-98.0) H 11/18/24 06:09 MCH 35.4 pg (27.0-33.0) H 11/18/24 06:09 MCHC 35.3 g/dl (31.0-35.0) H 11/18/24 06:09 RDW 18.4 % (11.0-16.0) H 11/18/24 06:09 Plt Count 225 X10*3/uL (160-400) 11/18/24 06:09 MPV 9.6 fL (9.4-12.3) 11/18/24 06:09 Immature Gran % (Auto) 0.6 % (0.0-0.4) H 11/16/24 10:43 Neut % (Auto) 83.8 % (45-73) H 11/16/24 10:43 Lymph % (Auto) 6.1 % (20-40) L 11/16/24 10:43 Childress % (Auto) 8.2 % (2-11) 11/16/24 10:43 Eos % (Auto) 1.1 % (0-4) 11/16/24 10:43 Baso % (Auto) 0.2 % (0-2) 11/16/24 10:43 Lymph # (Auto) 1.2 X10*3/uL (1.2-4.9) 11/16/24 10:43 Childress # (Auto) 1.6 X10*3/uL (0.1-1.2) H 11/16/24 10:43 Eos # (Auto) 0.2 X10*3/uL (0.0-0.4) 11/16/24 10:43 Baso # (Auto) 0.0 X10*3/uL (0.0-0.2) 11/16/24 10:43 Abs Immat Gran (auto) 0.11 X10*3/uL (0.00-0.03) H 11/16/24 10:43 Absolute Neuts (auto) 16.3 x10*3/uL (2.0-8.3) H 11/16/24 10:43 Absolute Nucleated RBC 0.020 X10*3/uL (0.0-0.012) H 11/18/24 06:09 Nucleated RBC % (auto) 0.2 /100WBC (0.0-0.2) 11/18/24 06:09 Smear Tech's Comments VERIFIED 11/16/24 10:43 ESR 14 MM/HR (0-20) 11/16/24 10:43 PT 12.0 SEC (10.9-12.4) 11/16/24 10:43 INR 1.0 (0.9-1.1) 11/16/24 10:43 APTT 34.8 SEC (26.0-36.8) 11/16/24 10:43 Sodium 138 mmol/L (135-145) 11/17/24 06:43 Potassium 4.3 mmol/L (3.3-5.1) 11/17/24 06:43 Chloride 106 mmol/L (96-108) 11/17/24 06:43 Carbon Dioxide 26 mmol/L (22-29) 11/17/24 06:43 Anion Gap 10 (12-20) L 11/17/24 06:43 BUN 19 mg/dL (9-16) H 11/17/24 06:43 Creatinine 0.82 mg/dL (0.5-1.4) 11/17/24 06:43 Estim Creat Clear Calc 56.2 11/17/24 06:43 Estimated GFR > 60 11/17/24 06:43 Random Glucose 92 mg/dL (60-115) 11/17/24 06:43 Lactic Acid 0.9 mmol/L (0.5-2.0) 11/16/24 11:49 Calcium 8.4 mg/dL (8.4-10.2) 11/17/24 06:43 Total Bilirubin 0.4 mg/dL (0.0-1.0) 11/16/24 10:43 Direct Bilirubin 0.2 mg/dL (0.0-0.5) 11/16/24 10:43 AST 22 U/L (5-31) 11/16/24 10:43 ALT 32 U/L (0-31) H 11/16/24 10:43 Alkaline Phosphatase 115 U/L (39-117) 11/16/24 10:43 C-React Prot High Sens >20.0 mg/L H 11/16/24 10:43 Total Protein 5.7 g/dL (6.5-8.0) L 11/16/24 10:43 Albumin 3.4 g/dL (3.5-5.0) L 11/16/24 10:43 Influenza Type A (PCR) NEGATIVE (Negative) 11/16/24 10:43 Influenza Type B (PCR) NEGATIVE (Negative) 11/16/24 10:43 RSV RNA Qual (PCR) NEGATIVE (Negative) 11/16/24 10:43 SARS-CoV-2 RNA (RT-PCR) NEGATIVE (Negative) 11/16/24 10:43 Impressions Finger X-Ray 11/16/24 10:08 IMPRESSION: 1. No acute bony abnormalities. 2. Soft tissue swelling dorsal thumb. Electronically signed by: Juan Antonio Zuleta MD 11/16/2024 10:26 AM EDT RP Discharge Plan Discharge Anticipated Discharge Date/Time: 11/19/24 12:47 Patient Disposition: Home, Self-Care Discharge Diagnosis: cellulitis of left thumb at site of skin graft Referrals: Eva Monreal MD [Primary Care Provider] - 1 Week Yaneth Hammer MD [Physician] - 1 Week Discharge Medications: New mupirocin 2 % ointment 1 appl topical TID Qty: 22 0RF cephalexin 500 mg tablet 500 mg PO QID Qty: 28 0RF Continued hydroxyzine HCl 25 mg tablet 25 mg PO Q8H PRN (Reason: itching) multivitamin Tablet 1 tab PO DAILY acetaminophen 500 mg Tablet 500 mg PO Q6H PRN (Reason: Pain) Probiotic 10 billion cell Capsule 10,000 mmu cells PO DAILY levothyroxine 112 mcg tablet 112 mcg PO DAILY@0600 cyclosporine [Restasis] 0.05 % dropperette 1 drp ophthalmic (eye) BID duloxetine 60 mg capsule,delayed release(DR/EC) 60 mg PO BID losartan 25 mg tablet 25 mg PO DAILY estradiol 0.01 % (0.1 mg/gram) cream 1 appl vaginal MARRUFO Rx Instructions: APPLY TWICE A WEEK folic acid 1 mg tablet 1 mg PO DAILY famotidine 20 mg tablet 20 mg PO BID valacyclovir 500 mg tablet 500 mg PO BID oxycodone 5 mg tablet 10 mg PO Q4H PRN (Reason: Pain) gabapentin 300 mg capsule 600 mg PO TID diltiazem HCl 240 mg capsule,extended release 24hr 240 mg PO DAILY Jardiance 10 mg tablet 10 mg PO DAILY Eliquis 2.5 mg tablet 2.5 mg PO BID lorazepam 0.5 mg tablet 0.5 mg PO DAILY PRN (Reason: anxiety) Qty: 30 2RF mirtazapine 7.5 mg tablet 7.5 mg PO BEDTIME Qty: 90 0RF Discontinued doxycycline monohydrate 100 mg capsule 100 mg PO BID Discharge Orders: Discharge Order (Routine); Ordered 11/19/24 Ordered By: Lakhwinder Caro Diet: Advance to usual diet Activity on Discharge: As tolerated Stand Alone Forms: Patient Portal Discharge page Print Language: Nigerian Activity Restrictions/Additional Instructions: Topical Wound Care Recommendations: Upper back, Right Lateral thigh and abdomen - Keep clean and dry cover with dry gauze dressing - follow up with Dr. Hammer for suture removal. Left Bicep - Cleanse with NS moist gauze, Pat dry. Apply skin prep let dry cover with Hydrocolloid dressing change every 3-4 days and PRN. Left Thumb - Elevate left hand and limit use of thumb, you are able to move and flex but limit lifting and excess use. Cleanse with NS moist gauze, pat dry. Apply thin small layer of Mupirocin ointment to wound bed. Apply 2-3 times a day cover with dry gauze dressing. Keep covered to protect from environment. Appt Booked for Wound Care Clinic Follow up on TuesdayNovember 27 at 9:15am with Dr. Hammer. Recommend follow up out patient Wound Clinic at [address] [place] [id number] and to call for an appointment at time of discharge. [phone].? Care Plan Goals: cure of infection Health Concerns: cellulitis of left thumb at site of skin graft Plan of Treatment: cephalexin 500 mg 4x a day for 7 days apply mupirocin ointment 3x a day follow up with Dr Hammer from [facility] on Monday 11/27 at 9:15am Please follow up with your primary care doctor within 1 week. Return to the hospital if you experience recurrent or worsening symptoms. Assessment: See Discharge Summary.
[2024-11-19] MEDS: cephALEXin 500 MG CAPSULE PO (14:31)
[2024-11-19] MEDS: Mupirocin 2 % Oint 22 GM TUBE 1 APPL TOPICAL (14:32)
--- NOTE | 2024-11-19 15:01 | HO.WOUND ---
Wound Consult: Initial 69yr old female? admitted to [facility] on 11/16/24 12:55 - See progress notes and H&P for detailed history.? Wound consult placed for Left Thumb.? Patient agreeable to assessment and photo documentation.? Seen together with Dr. Hammer from outpt wound clinic - patient will follow up with Dr. Hammer for follow up care schedules for TuesdayNovember 27 at 9:15am. Patient ayers verbally as she picked appt day and time and provided in written d/c instructions. Left Bicep is site of biopsy and informed Skin Ca and is to have follow up for biocpsy at facility in [place] for removal Aptil 1st. The upper back and rightlateral thigh are incision sites from Skin CA removal sites from outside facility. Sutures in place well approximated and mild erythema noted. No s/s of infection noted. The Donot site for the left thumb is to her left abdomen the sites has steris strips in place and is well approximated no s/s o infection no concerns noted to this site. The Left thumb is s/p MOHS procedure for Skin CA and graft site. the site was [employer] at the time of my consult - dry crusted wound bed noted - would recommend moist wound environment. She was comminicating with her Guitar Teacher in [facility] who performed the MOHS and they have requested Mupirocin applciaiotn - Discussed with Dr. Hammer and she is to agreeabl to this plan. Patient education on topical wound care instruction and all questions asked and work and family life consultant. Upper Back incision Right Lateral Thigh Left Bicep ABd Left Left Thumb Etiology: ?S/P MOHS procedure with graft Wound Bed: dried red crusted wound bed Drainage / Odor: crusted to wound edges Edges: ? rolled Laurie wound: ? swelling noted - decreased since admission - No Induration, Fluctuance or Warmth noted Pain: denies Goals of Treatment: ? Moist wound healing Recommendations: 1. Turn and Reposition every 2 hours and as needed for patient comfort.? Use pillows or wedges to support off loading positions. 2. Off Load all bony prominences with use of pillows and heel boots if needed.? Apply Preventative foams where needed. ? 3. Monitor for incontinence and moisture control, use barrier creams when needed for prevention and treatment. 4. Provide adequate and supplemental nutrition.? 5. When applicable maintain blood glucose levels per Providers order. 7. Upper back, Right Lateral thigh and abdomen - Keep clean and dry cover with dry gauze dressing - folow up with Dr. Hammer for suture removal. 8. Left Bicep - Cleanse with NS moist gauze, Pat dry. Apply skin prep let dry cover with Hydrocolloid dressing change every 3-4 days and PRN. 9. Left Thumb - Elevate left hand and limit use of thumb, you are able to move and flex but limit lifting and excess use. Cleanse with NS moist gauze, pat dry. Apply thin small layer of Mupirocin ointment to wound bed. Apply 2-3 times a day cover with dry gauze dressing. Keep covered to protect from environment. Appt Booked for Wound Care Clinic Follow up on TuesdayNovember 27 at 9:15am with Dr. Hammer. Recommend follow up out patient Wound Clinic at [address] [place] [address] and to call for an appointment at time of discharge. [phone].? Re-consult wound care Nurse for wound deterioration or wound changes.
--- NOTE | 2024-11-19 15:49 | MHC.CM.PN ---
Patient has been medically cleared for dc to home today, self care. Last IMM was addressed 11/17/2024.
--- NOTE | 2024-11-19 19:22 | PC.NURSE ---
Late Entry Note: Patient declining Morphine for left thumb pain 11/17/242044 and 11/18/24 at 0507 as she reported the Oxycodone 10 mg po works better for her . Pt also explained she does not like how Morphine makes her feel . Oxycodone 10mg PO provided as patient requested for pain management.
== END 2024-11-19 16:12 | disposition home or self-care (01) | DRG 862 ==
LOC: HO.ED 12:06 → HO.EDOVER 12:55 → HO.IMC 16:00
PROVIDERS: Hospitalist; Admitting Provider Student in an Organized Health Care Education/Training Program; Emergency Provider Emergency Medicine; PCP Internal Medicine; Visit Provider Family Medicine
DX: T81.44XA Sepsis following a procedure, initial encounter (principal); A41.9 Sepsis, unspecified organism; Z94.84 Stem cells transplant status; L03.012 Cellulitis of left finger; I48.0 Paroxysmal atrial fibrillation; Y83.4 Other reconstructive surgery as the cause of abnormal reaction of the patient, or of later complication, without mention of misadventure at the time of the procedure; Z85.6 Personal history of leukemia; Z20.822 Contact with and (suspected) exposure to COVID-19; Z79.01 Long term (current) use of anticoagulants; Z79.890 Hormone replacement therapy; Z79.899 Other long term (current) drug therapy
CPT/HCPCS: 0241U; 36415; 73140; 80048; 80076; 83605; 85025; 85027; 85610; 85652; 85730; 86141; 87040; 93005; 99285; J0690; J2270; J7120

== ENCOUNTER → 2024-11-16 10:08 | Outpatient (BNV) | payer MEDICARE, MEDICAID, SELFPAY | PROVIDERS: Admitting Provider Student in an Organized Health Care Education/Training Program; Emergency Provider Emergency Medicine; PCP Internal Medicine; Visit Provider Internal Medicine | DX: I49.1 Atrial premature depolarization (principal); I23.2 Ventricular septal defect as current complication following acute myocardial infarction | CPT/HCPCS: 93010 ==

== ENCOUNTER → 2024-11-16 10:08 | Outpatient (BNV) | payer MEDICARE, MEDICAID, SELFPAY | PROVIDERS: Emergency Provider Emergency Medicine; PCP Internal Medicine; Visit Provider Radiology Diagnostic Radiology | DX: R22.32 Localized swelling, mass and lump, left upper limb (principal) | CPT/HCPCS: 73140 ==

== ENCOUNTER → 2024-11-16 12:55 | Outpatient (BNV) | payer MEDICARE, MEDICAID, SELFPAY | PROVIDERS: Admitting Provider Student in an Organized Health Care Education/Training Program; Emergency Provider Emergency Medicine; PCP Internal Medicine; Visit Provider Student in an Organized Health Care Education/Training Program | DX: A41.9 Sepsis, unspecified organism (principal); L03.012 Cellulitis of left finger; I48.0 Paroxysmal atrial fibrillation; I10 Essential (primary) hypertension | CPT/HCPCS: 99223; 99232; 99233; 99239 ==

== ENCOUNTER → 2024-11-16 12:55 | Outpatient (BNV) | payer MEDICARE, MEDICAID, SELFPAY | PROVIDERS: Admitting Provider Student in an Organized Health Care Education/Training Program; Emergency Provider Emergency Medicine; PCP Internal Medicine; Visit Provider Physician Assistant | DX: L03.012 Cellulitis of left finger (principal) | CPT/HCPCS: 99221 ==

== ENCOUNTER 2024-11-29 15:03 | Outpatient (AMB) | payer MEDICARE, MEDICAID, SELFPAY ==
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
== END 2024-11-29 15:51 | disposition home or self-care (01) ==
LOC: HO.HOP 15:03
PROVIDERS: PCP Internal Medicine; Visit Provider Clinical Nurse Specialist Psychiatric/Mental Health
DX: F42.2 Mixed obsessional thoughts and acts (principal)
CPT/HCPCS: 99214

== ENCOUNTER → 2024-11-29 15:03 | Outpatient (BNVA) | payer MEDICARE, MEDICAID, SELFPAY | PROVIDERS: PCP Internal Medicine; Visit Provider Clinical Nurse Specialist Psychiatric/Mental Health ==

== ENCOUNTER 2024-12-31 15:32 | Outpatient (AMB) | payer MEDICARE, MEDICAID, SELFPAY ==
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
--- OUTSIDE RECORDS SUMMARY | 2024-12-31 18:19 | XMS_ITS | Encounter Summary ---
Author Organization [facility] Address [address] [place] [address] Care Team Providers Care Safety Security Officer Name Role Phone Eva Monreal Primary Care Provider [phone] Reason for Visit * Reason Onset Date Comments Appointment Rescheduling 02/15/2022 Encounter Details Date Type Department Care Team ([facility] Contact Info) Description 02/15/2022 Telephone [facility] Central Scheduling Department [address] [place] [id number] Telephone Intake, Staff Appointment Rescheduling Social History [...] on filedocumented in this encounter Care Teams Safety Security Officer Relationship Specialty Start Date End Date Eva Monreal [address] [place] [address] PCP - General Internal Medicine 12/12/20 documented as of this encounter
--- OUTSIDE RECORDS SUMMARY | 2024-12-31 18:19 | XMS_ITS | Patient Health Record ---
Author Organization [facility] Address [address] [address] Care Team Providers Care Measurement Supervisor Name Role Phone Eva Monreal Primary Care Provider Unavailabl MANUEL Maharaj Unavailable [phone] Allergies Allergen (clinical drug ingredient) Drug/Non Drug [...] extremity veno us stasis (I87.8) Referral Organization [facility] Referring Provider First [...] needed Orally Once a day Active Nystatin-Triamcinolone 995594-6.1 UNIT/GM 1 application Externally Twice a day Active Fluorouracil 5 % 1 application Saute Chef ally Twice a day Active oxyCODONE HCl 5 MG 2 tablets as needed Orally every 4 hrs Active Probiotic Active Multivitamin - 1 tablet Orally Once a day Active Tacrolimus 0.1 % 1 application Saute Chef ally Once a day Active Mupirocin 2 % 1 application Saute Chef ally Twice a day Active Tretinoin 0.025 [...] Orally Active Mupirocin 2 % 1 application Saute Chef ally Twice a day Active Niacinamide 500 MG 1 tablet Orally Once a day Active Nystatin 116705 UNIT/ML 4 mL Mouth/Throa t Four times a day Active Furosemide 20 MG 1 tablet Orally Once a day Active Ciclopirox 8 % 1 application Saute Chef ally to toenail Once a day for [...] Problem Status W/U Status Risk Notes Problem [id number] 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 Vital Signs Heart Rate 63 /min 02/01/2024 Temperature 97.5 degrees Fahrenheit 02/01/2024 Respiratory Rate 16 /min 02/01/2024 Height 5ft 7in in 02/01/2024 Weight 120.9 lbs 02/01/2024 BMI 18.93 kg/m2 02/01/2024 Encounters Encounter Location Date Provider Diagnosis [facility] [address] 02/01/2024 MANUEL MELÉNDEZ Accessory navicular bone of left foot Q74.2 ; Bony prominence palpable in left ankle M89.8X7 ; Onychomycosis B35.1 ; Lower extremity venous stasis I87.8 and Edema of left lower extremity due to peripheral venous insufficiency I87.2 [facility] [address] 01/04/2024 MANUEL MEDHAT [facility] [address] 01/24/2024 MANUEL MEDHAT [facility] [address] 02/02/2024 MANUEL MELÉNDEZ Assessments Encounter Date [...] venous insufficiency. She has been seeing a Payment Analyst. 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 I have placed a referral with [facility] to see if there is [...] of [place] [address] KIRSTENSHANEKA SULLIVANKAMILA [phone] [id number] John Lin Self - patient is the [...]
--- OUTSIDE RECORDS SUMMARY | 2024-12-31 18:19 | XMS_ITS ---
Author Organization [facility] Address [address] [address] Care Team Providers Care Elevator Examiner And Adjuster Name Role Phone Eva Monreal Primary Care Provider MANUEL Agarwal Unavailable [phone] REASON FOR VISIT [facility] referral Encounters Encounter Location Date Provider Diagnosis [facility] [address] [address] 02/02/2024 MANUEL MELÉNDEZ Plan Of Treatment No Information Progress Notes * John LIN ADOB: (68 yo F)Acc No.[id number]:02/02/2024 Patient:?John LIN :1955???Age:68 Y???Sex:Female Phone: Address:[address] [place] [phone] * true * Date:? Generated for Erendira lizama/Ely/eTransmitting on:?12/31/2024 06:19 PM EDT
--- OUTSIDE RECORDS SUMMARY | 2024-12-31 18:20 | XMS_ITS | Encounter Summary ---
Author Organization [facility] Address [address] [place] [address] Care Team Providers Care Behavioral Geneticist Name Role Phone Eva Monreal Primary Care Provider [phone] Encounter Details Date Type Department Care Team (Late st Contact Info) Description 04/12/2022 Telephone [facility] [place] Central Scheduling Department [address] [place] [address] Telephone Intake, Staff Social History Tobacco Use [...] on filedocumented in this encounter Care Teams Behavioral Geneticist Relationship Specialty Start Date End Date Eva Monreal [address] [place] [address] PCP - General Internal Medicine 12/12/20 documented as of this encounter
--- OUTSIDE RECORDS SUMMARY | 2024-12-31 18:20 | XMS_ITS ---
Author Organization [facility] Address [address] [address] Care Team Providers Care Filtrose Crusher Name Role Phone Shahnaz Mornealanne Primary Care Provider UnavailCORDELIA Crawford Unavailable [phone] Allergies Allergen (clinical drug ingredient) Drug/Non Drug [...] day Active Mupirocin 2 % 1 application Assembler [employer] ally Twice a day Active Losartan Potassium [...] Active Encounters Encounter Location Date Provider Diagnosis [facility] [address] [address] 02/01/2024 CORDELIA MELÉNDEZ Plan Of Treatment No Information Progress Notes * John LIN ADOB: 4 (69 yo F)Acc No.[id number]:02/01/2024 Consult note Patient:?John LIN Provider:?Cordelia Mcclendon DPM :1955???Age:68 Y???Sex:Female D ate:02/01/2024 Phone: Address:[address] [place], [place] [address]Rayne GOMEZ [id number] Pcp:Eva Monreal Subjective: * Chief Complaints: * [...] Electronic signature of GE MELÉNDEZ D.P.M. on 12/31/2024 at 06:19 PM EDT Sign off status: Pending * Provider:?Cordelia Mcclendon DPM Date:?01/31 Generated for Erendira lizama/Ely/eTsusannesmpaxton on:?12/31/2024 06:19 PM EDT
--- OUTSIDE RECORDS SUMMARY | 2024-12-31 18:20 | XMS_ITS | Clinical Summary ---
Author Organization [facility] [address] [facility] Address [address] [place] [address] Phone Care Team Providers Care Home Care Physical Therapist Name Role Phone Eva Monreal MD Primary Care Provider [phone] Allergies Active Allergy Reactions Criticality Noted Date Comments Lisinopril 12/20/2024 Penicillins 12/20/2024 Medications polyethylene glycol (GoLYTELY) 236-22.74-6.74 -5.86 gram solution Take 4,000 mL by mouth 1 (one) time for 1 dose. 4000 mL 12/21/2024 Encounters Date Type Department Care Team Description 12/21/2024 Telephone Gastroenterology - [address] [address] Swetha Romero NP 12/20/2024 3:21 PM EDT - 12/20/2024 11:59 PM EDT Hospital Encounter [facility] Xray [address] [place] [phone] Other constipation Discharge Disposition: Home or Self Care 12/20/2024 2:40 PM EDT Office Visit Gastroenterology - [address] [address] Swetha Romero NP Other constipation (Primary Dx); Full incontinence of feces from Last 3 Months Social History Tobacco Use Types Packs/Day Years Used Date Smoking Tobacco: Never Assessed Comments Unknown Sex and Gender Information Value Date Recorded Sex Assigned at Female 07/04/2024 2:08 PM EDT Legal Sex Female 8:29 PM EST Gender Identity Female 07/04/2024 2:08 PM EDT Sexual Orientation Straight 07/04/2024 2: 08 PM EDT Last Filed Vital Signs Vital Sign Reading Time Taken Comments Blood Pressure 130/70 02/24/2023 1:33 PM EDT Sit ting R Arm Pulse - - Temperature - - Respiratory Rate - - Oxygen Saturation - - Inhaled Oxygen Concentration - - Weight 51.7 kg (114 lb) 12/20/2024 2:38 PM EDT Height 172.7 cm (5' 8 ) 12/20/2024 2:38 PM EDT Body Mass Index 17.33 12/20/2024 2:38 PM EDT Plan of Treatment Upcoming Encounters Date Type Department Care Team (Late st Contact Info) Description 02/07/2025 3:10 PM EDT Office Visit Gastroenterology - [address] [place] [address] [place] [phone] Swetha Romero NP [address] [place] [address] Health Maintenance Due Date Last Done Comments Breast Cancer Screening 1955 Pneumococcal Vaccine: 50+ Years (2 of 2 - PCV) 07/19/2006 07/19/2005, 07/19/2005 RSV Immunization Adult Patients (1 - Risk 60-74 years 1-dose series) 2014 Zoster Vaccines (2 of 2) 06/07/2022 04/12/2022 Colorectal Cancer Screening: Colonoscopy 09/30/2023 Depression Screening 09/30/2023 Falls Risk Assessment 09/30/2023 Hepatitis C Screening 09/30/2023 Medicare Annual Wellness Visit 09/30/2023 Osteoporosis Screening (Bone Density Screening) 09/30/2023 Social Influencers of Health Screening 09/30/2023 Cholesterol Screening (Lipid Panel) 12/15/2023 12/14/2018 COVID-19 Vaccine (10 - Mixed Product risk season) 2024 05/14/2024, 12/26/2023, 06/10/2023, Additional history exists DTaP,Tdap,and Td Vaccines (4 - Td or Tdap) 04/23/2025 04/23/2015, 10/05/2010, 11/03/2009 Hypertension/CHF/CAD Annual BMP Blood Test 10/03/2025 10/03/2024, 04/27/2024, 04/26/2024, Additional history exists MMR Vaccines Aged Out 07/19/2005 No longer eligi ble based on patient's age to complete this topic Meningococcal ACWY Vaccine Aged Out 11/03/2009 N o longer eligible based on patient's age to complete this topic HIB Vaccines Aged Out 10/05/2010, 11/03/2009 No lo nger eligible based on patient's age to complete this topic Influenza Vaccine Completed 05/14/2024, , 05/21/2022, Additional history exists HPV Vaccines Aged Out No longer eligi ble based on patient's age to complete this topic Hepatitis A Vaccines Aged Out No long er eligible based on patient's age to complete this topic Hepatitis B Vaccines Aged Out No long er eligible based on patient's age to complete this topic IPV Vaccines Aged Out No longer eligi ble based on patient's age to complete this topic Meningococcal B Vaccine Aged Out No l onger eligible based on patient's age to complete this topic RSV Immunization Patients Under 20 months Aged Out No longer eligible based on patient's age to complete this topic Varicella Vaccines Aged Out No longer eligible based on patient's age to complete this topic Procedures Procedure Name Priority Date/Time Associated Diagnosis Comments XR ABDOMEN 1 VIEW Routine 12/20/2024 3:4 1 PM EDT Other constipation from Last 3 Months Results * XR Abdomen 1 View (12/20/2024 3:41 PM EDT) Anatomical Region Laterality Modality Body Radiographic Mallory ging 12/21/2024 8:01 AM EDT Impressions 12/21/2024 8:03 AM EDT Large amount of fecal residue throughout the entire colon. -------- FINAL REPORT -------- Dictated By: Nicolas Mckeon Dictated Date: 12/21/2024 08:01 ET Assigned Physician: Nicolas Mckeon Reviewed and Electronically Signed By: Nicolas Mckeon Signed Date: 12/21/2024 08:03 ET Workstation ID: [id number] Transcribed By: Self Edit Transcribed Date: 12/21/2024 08:01 ET Narrative 12/21/2024 8:03 AM EDT EXAMINATION: ABDOMEN CLINICAL INFORMATION: Constipation. COMPARISON: None. TECHNIQUE: Frontal view of the abdomen FINDINGS: No suspicious calcifications. There are phleboliths in the pelvis. No small bowel distention. Large amount of fecal residue throughout the colon including the proximal mid and distal colon. No definite evidence of bowel wall thickening or ectopic gas. Suspect a double density in the mediastinum which could be related to a small hiatal hernia or tortuosity aorta. Procedure Note Nicolas Mckeon MD - 12/21/2024 EXAMINATION: ABDOMEN CLINICAL INFORMATION: Constipation. COMPARISON: None. TECHNIQUE: Frontal view of the abdomen FINDINGS: No suspicious calcifications. There are phleboliths in the pelvis. No small bowel distention. Large amount of fecal residue throughout thecolon including the proximal mid and distal colon. No definite evidence of bowel wall thickening or ectopic gas. Suspect a double density in the mediastinum which could be related to asmall hiatal hernia or tortuosity aorta. IMPRESSION: Large amount of fecal residue throughout the entire colon. -------- FINAL REPORT -------- Dictated By: Nicolas Mckeon Dictated Date: 12/21/2024 08:01 ET Assigned Physician: Nicolas Mckeon Reviewed and Electronically Signed By: Nicolas Mckeon Signed Date: 12/21/2024 08:03 ET Workstation ID: [id number] Transcribed By: Self Edit Transcribed Date: 12/21/2024 08:01 ET Swetha Romero NP IMG XR PROCEDURES Final Resul t from Last 3 Months Insurance MEDICARE MEDICAID - [place] Care Teams Home Care Physical Therapist Relationship Specialty Start Date End Date Eva Monreal MD [address] [place] [id number] PCP - General 10/26/22
--- OUTSIDE RECORDS SUMMARY | 2024-12-31 18:20 | XMS_ITS | Clinical Summary ---
Author Organization [facility] Address [address] [place] [address] Care Team Providers Care Netbackup Admin Name Role Phone Unavailable Primary Care Provider Unavailabl e Social History Tobacco Use Types Packs/Day Years Used Date Smoking Tobacco: Never Assessed Comments Unknown Sex and Gender Information Value Date Recorded Sex Assigned at Not on file Legal Sex Female 3:05 PM EDT Gender Identity Not on file Sexual Orientation [...]
--- OUTSIDE RECORDS SUMMARY | 2024-12-31 18:20 | XMS_ITS | Clinical Summary ---
Author Organization [facility] Address [address] [place] [address] Care Team Providers Care Landing Worker Name Role Phone Eva Monreal Primary Care Provider [phone] Allergies Active Allergy Reactions Criticality Noted Date Comments Ceftazidime Rash Low 07/20/2017 Cephalosporins Hives 08/25/2008 skin test pre-pen, pen G, and ceftriaxone on 06/20/2013, were all negative. However, given the low sensitivity of the latter, this patient should be considered cephalosporin (and carbapenem) allergic unless disproved by an adobe flex developer by way of a graded challenge. skin test pre-pen, pen G, and ceftriaxone on 06/20/2013, were all negative. However, given the low sensitivity of the latter, this patient should be considered cephalosporin (and carbapenem) allergic unless disproved by an adobe flex developer by way of a graded challenge. Imipenem-Cilastatin [...] History of peripheral stem cell transplant 06/23 Mjxpj-vreikb-gtoe disease 03/24/2015 Overview (02/11/2021): IMO update Hypertensive [...] 04/07/2023 04/07/2022 , 11/26/2021, 06/22/2021 COVID-19 Vaccine (5 - season) 2024 10/15/2021, 04/19/2021, 11/18/2020, Additional history exists Alcohol/Substance Use Screening 09/05/2024 Depression Screening and Follow-Up 09/05/2024 Health Care Proxy Review 09/05/2024 Social Drivers of Health Annual Screening 09/05/2024 DTaP,Tdap,and Td Vaccines (4 - Td or Tdap) 04/23/2025 04/23/2015, 10/05/2010, 11/03/2009 Influenza Vaccine (Season Ended) 2025 06/07/2021, 06/07/2020, 07/01/2019, Additional history exists Hepatitis B Vaccines Aged Out No long er eligible based on patient's age to complete this topic Insurance MEDICARE Member Subscriber Plan / Payer (Ef fective 2009-Present) Name:John Lin Member ID:[id number] Relation to Subscriber:Self Name:John Lin Subscriber ID:[id number] Payer ID:[id number] Group ID:Not on file Type:Not on file Address: [address] [place] [phone] [place] [address] Care Teams Landing Worker Relationship Specialty Start Date End Date Eva Monreal [address] [place] [address] PCP - General Internal Medicine 12/12/20
--- OUTSIDE RECORDS SUMMARY | 2024-12-31 18:20 | XMS_ITS | Data Portability ---
Author Organization [facility], [facility] Address [address] [place] [address] Care Team Providers Care Small Offset Printer Name Role Phone SHAYLEE JENSEN Primary Care [...] and at end of visit (190/[address])- start losartan. BMD Results: Spine: -1.0 (2015); was -2.2 (2009) Left femoral neck= -2.0 (07/21)- was -1.8 (2009); Total hip= -1.3 (07/2016); was -1.8 (2009) PCP is Erwin Gavin. Team at [facility] is: TERESE Desir (Darron Enciso (xplant) [...] D, 25-hydrox y, total, serum 2024 025 [facility], [address] [place] [address], [address], 16:22:12 renal function panel, serum 2024 025 [facility], [address] [place] [address], [address], 16:22:12 magnesium , blood 2024 025 [facility], [address] [place] [address], [address], 16:22:12 PTH (parathyr oid hormone), intact, serum or plasma 2024 025 [facility], [address] [place] [address], [address], 16:22:12 TSH, serum or plasma 2024 025 [facility], [address] [place] [address], [place], [address], 16:22:12 TSH, serum or plasma 2024 025 [facility], [address] [place] [address], [address], 16:22:11 T4, free, serum 2024 025 [facility], [address] [place] [address], [address], 16:22:11 Referral None recorded. Procedures None recorded. Surgeries None recorded. Imaging None recorded. Medication Orders levothyro xine 112 mcg tablet 2024 025 [id number], [address] [facility], [place], [address], 17:43:50 losartan 100 mg tablet 2016 017 [email or web address], [address] [place], [address], 16:30:16 Patient TargetsNo targets recorded. Patient Instructions Encounter Date Encounter Id Patient Instructions Last Modified By Organization Details Last Modified Time 09/23/2016 [id number] Discussed CCM- signed 09/2016- [facility] sstuartchipkin Not available 09/24/2016 14:58:51 10/11/2024 [id number] - Continue to take calcium (5431-1810 mg per day) and vitamin D (6223-6741 units per day). - Consider looking for opportunities for exercise or balance classes to help prevent falls. - Get labs done every 3 months ([place]) - Continue taking thyroid hormone every day [...] 09/05/2011 Hernia Repair completed GREGORIA Shafer [address] [place], [address], [facility] 09/23/2016 16:36:11 09/05/1991 completed GREGORIA Shafer [address] [place], [address], [facility] 09/23/2016 16:34:24 09/05/1988 completed GREGORIA Shafer [address] [place], [address], [facility] 09/23/2016 16:34:29 09/05/1984 completed GREGORIA Shafer [address] [place], [address], [facility] 09/23/2016 16:34:20 Imaging Results Imaging Date Name [...] Not available Not available Not available 09/23/2016 [id number] SNOMED GREGORIA Shafer [address] [facility] [place], [address], [facility] 7 16:36:43 Medications Name Sig Start Date [...] Address Organization Details Last Updated DateTime 7 03210.7 1 g 173.36 cm 21.6 kg/m2 76 /min 176 mm[Hg] 84 mm[Hg] Yaneth Moraes RN BSN [address] [place], [address], [facility] 7 16:45:02 Date Recorded Body weight Body mass index (BMI) Body height Provider Name and Address Organization Details Last Updated DateTime 10/11/2024 52910.27 g 19 kg/m2 170.82 cm Merry Forman LPN [facility] 10/11/2024 16:22:10 Social History Question Answer Notes LastModified by Organizat ion Details LastModified Time Tobacco Smoking Status Never Smoker 09/23/16 Yaneth Moraes RN BSN [address] [place], [address], [facility] 09/23/2016 16:33:43 What Is Your Level Of [...] Not avail able 09/23/2016 16:32:17 Mother Malignant neoplasm of lung 88 Not available 2016 16:32:31 [...] (COVID-19) vaccine, UNSPECIFIED 09/05/2020 completed URSULA Hudson, [facility] 10/11/2024 16:35:03 SARS-COV-2 (COVID-19) vaccine, UNSPECIFIED 10/26/2020 completed URSULA Hudson, [facility] 10/11/2024 16:35:15 Past Encounters Encounter ID Performer Location Encounter Start Date Encounter Closed Date Diagnosis/Indication Diagnosis SNOMED-CT Code Diagnosis ICD10 Code Diagnosis Note [id number] Shane Burciaga MD [facility], [address] [address] 09/23/2016 16:23:17 09/27/2016 15:34:09 Osteopenia 328627519 M85.9 BMD from 07/2016 has FRAX scores [...] bone density. Long-term current use of steroid 850182384 Z79.52 Low dose of prednisone raises the [...] discussing with ID. History of leukemia 1614 53931 Z85.6 Contribute s to complexity and the need for the circumstan ceci described above. Essential hypertension 56361977 I10 BP 190/115 at end of visit. Suggest she take losartan. Thyroid nodule 499214938 E04.1 On exam on right side. Pt. gives hx of benign bx. Can follow clinically but plan to better assess with ultrasound at next visit. Skin ulcer 18289169 L98. 499 Right medial malleolus in site of MOHS procedure. Looks to be stage III with concern because of presence of odor and some erythema at perimeter. No streaking. No discharge but has (+) odor.Pt. in touch with [facility] providers to arrange follow-up. [id number] Shane Burciaga MD Endocrino [facility], [address] [address] 10/11/2024 16:17:15 10/12/2024 07:47:01 Osteopenia 525747424 M85.9 Goals are:- Minimize risk for fracture [...] e 1mg) for many years Essential hypertension 03750841 I10 On losartan (25). Also DILT (240) as part of AFib.Also lasix and jardiance (no DM but maybe for heart failure) Thyroid nodule 474870924 E04.1 On exam on right side. Pt. gives hx of benign bx. Can follow clinically but plan to better assess with ultrasound at next visit. History of leukemia 1614 16725 Z85.6 Contribute s to complexity and the need for the circumstan ceci described above. Hypothyroidism 60311570 E03.9 UNCONTROLL EDGOALS:- Optimize thyroid function- Minimize [...] ID Guarantor Name 09/23/2016 1 [place] [employer] John Lin [id number] John Lin 09/23/2016 2 [place] [facility] John Lin [id number] John Lin 10/11/2024 2 [place] [facility] John Lin [id number] John Lin 10/11/2024 1 [place] [employer] John Lin [id number] John Lin Notes Date Note Type Note [...] marrow xplants. SMOKING: None. Shane Burciaga MD [address] [place] [address], [phone], [facility] 09/24/2016 14:59:02 5 text/html ThyroidReported bypatient.Previous Evaluation:TSH: [...] on/off in past.);anxiety;jittery/n ervous PCP: Chantel Waller [facility]PL[facility] PILOT at [facility]: [address] was Germán Enciso ([place]win) (xplant)DERM: [place].HEART: [place].NEURO: Rossen. (shingles) CC: Thyroid.Started couple of months ago. Started on 25mcg. Then to 50 and then to 75 daily.Told to take 75mcg alternating with 150. long-term current use of steroidessential hypertensionthyroid nodulehistory of leukemiaLV on 09/2016 was new at this time PT states PCP has been managing thyroid but now PCP would like to be evaluated again by [facility] 09/29PT was recently had a fall and was hospitalized, slipped on a towel . [facility] with pneumonia- mentioned heart failure but [...] bad ).creat/GFR= 1.16/51 (05/29) SOCIAL: [employer]. exercise is tennis and jogging and yoga and walking. 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 walks dog too.was doing more yoga- botox in shoulder to try and help shingles but ended up hurting armDoes PT:Interested in moving to [place]. Knows house is too much for one person FAM Hx:Dad 87- brain tumor (GLIA)Mom - lung CASister is 59- healthyBen, and Guerita- healthy. Guerita has tachycardia.10/30; is getting (06/29). nephew getting in 07/30. Previously seen for ongoing steroid therapy and bone density s/p extensive chemo therapy for AML (2008) OSTEOPENIA:BMD@ [facility] (vs 2019)Spine= -2.1 (12/27; -12% vs. 2019);Left [...] marrow xplants. SMOKING: None. Shane Burciaga MD [address] [place] [address], [phone], [facility] 10/11/2024 17:43:52 OBGyn Episode No OBEpisode recorded.
--- OUTSIDE RECORDS SUMMARY | 2024-12-31 18:20 | XMS_ITS ---
Author Organization [facility] Address [address] [address] Care Team Providers Care Rocket Engine Tester Name Role Phone Eva Monreal Primary Care Provider Unavailabl e CORDELIA MELÉNDEZ Unavailable [phone] Allergies Allergen (clinical drug ingredient) Drug/Non Drug [...] extremity veno us stasis (I87.8) Referral Organization [facility] Referring Provider First Name CORDELIA Referring Provider Last Name MEDHAT Referring Provider Speciality Podiatry Referred Provider Specialty Intervention al Radiology Referral Priority Routine REASON FOR VISIT bump in left arch, left great toenail issue, rash on leg. Medications Medication SIG (Take, Route, Frequency, Duration) Notes Start Date End Date Status Ciclopirox 8 % 1 application Break Up Worker ally to toenail Once a day for [...] Dental Active Fluorouracil 5 % 1 application Break Up Worker ally Twice a day Active Folic Acid [...] day Active Mupirocin 2 % 1 application Break Up Worker ally Twice a day Active Nystatin-Triamcinolone 494901-9.1 UNIT/GM 1 application Externally Twice a day Active oxyCODONE HCl 5 MG 2 tablets as needed Orally every 4 hrs Active Probiotic Active Niacinamide 500 MG 1 tablet Orally Once a day Active Nystatin 908221 UNIT/ML 4 mL Mouth/Throa t Four times a day Active Tacrolimus 0.1 % 1 application Break Up Worker ally Once a day Active Tretinoin 0.025 % 1 application in the evening to face Externally Once a day Active Valtrex 500 MG 1 tablet Orally Once a day Active Problems Problem Type SNOMED Code ICD Code Onset Dates Problem Status W/U Status Risk Notes Problem [id number] 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 She has been seeing a Smasher. 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 I have placed a referral with [facility] to see if there is a venous component. She will continue her follow ups with dermatology as well. 02/01/2024 Edema of left lower extremity due to peripheral venous insufficiency (ICD-10 - I87.2) Plan Of Treatment Medication Medication Name Sig Start Date Stop Date Notes Ciclopirox 8 % 1 application Break Up Worker ally to toenail Once a day for [...] venous insufficiency. She has been seeing a Smasher. 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 I have placed a referral with [facility] to see if there is a venous component. She will continue her follow ups with dermatology as well. Pending Test Test Name Order Date X ray : Foot, left 3v 02/01/2024 Referrals Referral Date Details 02/01/2024 02/01/2024, Left low er extremity venous stasis dermatitis changes with edema. ? venous reflux Progress Notes * John LIN ADOB: [birth year] (68 yo F)Acc No.[id number]:02/01/2024 Consult note Patient:?John LIN A Provider:?Cordelia Mcclendon DPM :1955???Age:68 Y???Sex:Female D ate:02/01/2024 Phone: Address:[address] [place] [address] [place]-[phone] Pcp:Eva Monreal Subjective: * [...] few months. She has been seeing a textile engineer in [place] who has been giving her topical treatments. [...] to follow closely with Gabrielle Bauman in [place]. * ROS:?General/Constitutional:?Denies?Chills.?Denies?Fatigue.?Denies?Fever.?Denies?Headache.?Allergy/Immunology:?Denies?Hives.?Denies?Itching.?Denies?Rash.?Endocrine:?Denies?Excessive sweating.?Denies?Excessive thirst.?Denies?Frequent urination.?Respiratory:?Denies?Cough.?Denies?Shortness of breath,?denies.?Denies?Wheezing.?Cardiovascular:?Denies?Chest [...] as needed Orally every 4 hrs Nystatin-Triamcinolone 671721-0.1 UNIT/GM Cream 1 application Externally Twice a day Nystatin 391813 UNIT/ML Suspension 4 mL Mouth/Throat Four times [...] Orally every 4 hrs Taking Nystatin- Triamcinolone 545965-1.1 UNIT/GM Cream 1 application Externally Twice a day Taking Nystatin 508958 UNIT/ML Suspension 4 mL Mouth/Throat Four times [...] venous insufficiency. She has been seeing a Smasher. 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 I have placed a referral with [facility] to see if there is [...] radio opaque foreign bodies. ? * Procedure Codes:?41626 X-RAY EXAM OF FOOT 3 Views, Modifiers: LT * Billing Information: * Visit Code:? 75041 Office Visit, New Pt., Level 3. * Procedure Codes:? 47968 X-RAY EXAM OF FOOT 3 Views. Modifiers: LT * Sign off status: Completed true * Provider:?Cordelia Mcclendon DP Date:?01/31 Generated for Erendira lizama/Ely/eTsusannesmitting on:?12/31/2024 06:19 PM EDT History and Physical Notes * Examination [...]
--- OUTSIDE RECORDS SUMMARY | 2024-12-31 18:20 | XMS_ITS | Referral Summary ---
Author Organization [facility] Address [address] [place] [address] Care Team Providers Care Dough Raiser Name Role Phone Eva Monreal Primary Care Provider [phone] Allergies Active Allergy Reactions Criticality Noted Date Comments Ceftazidime Rash Low 07/20/2017 Cephalosporins Hives 08/25/2008 skin test pre-pen, pen G, and ceftriaxone on 06/20/2013, were all negative. However, given the low sensitivity of the latter, this patient should be considered cephalosporin (and carbapenem) allergic unless disproved by an field artillery targeting technician by way of a graded challenge. skin test pre-pen, pen G, and ceftriaxone on 06/20/2013, were all negative. However, given the low sensitivity of the latter, this patient should be considered cephalosporin (and carbapenem) allergic unless disproved by an field artillery targeting technician by way of a graded challenge. [...] History of peripheral stem cell transplant 06/23 Qxmvl-bgblln-hmlc disease 03/24/2015 Overview (02/11/2021): IMO update Hypertensive [...] of Treatment Not on file Insurance MEDICARE [facility] Care Teams Dough Raiser Relationship Specialty Start Date End Date Eva Monreal [employer] [address] [place] [address] # [address] [place] [address] [phone] PCP - General Internal Medicine 12/12/20
== END 2024-12-31 16:10 | disposition home or self-care (01) ==
LOC: HO.HOP 15:32
PROVIDERS: PCP Internal Medicine; Visit Provider Clinical Nurse Specialist Psychiatric/Mental Health
DX: F42.2 Mixed obsessional thoughts and acts (principal); F06.31 Mood disorder due to known physiological condition with depressive features
CPT/HCPCS: 99214

== ENCOUNTER → 2024-12-31 15:32 | Outpatient (BNVA) | payer MEDICARE, MEDICAID, SELFPAY | PROVIDERS: PCP Internal Medicine; Visit Provider Clinical Nurse Specialist Psychiatric/Mental Health | DX: F42.9 Obsessive-compulsive disorder, unspecified (principal); F06.31 Mood disorder due to known physiological condition with depressive features; Z71.89 Other specified counseling | CPT/HCPCS: 99212 ==

== ENCOUNTER 2025-01-07 12:30 | Outpatient (RCR) | payer MEDICARE, MEDICAID, SELFPAY | END 2025-02-21 12:01 | disposition home or self-care (01) | LOC: HO.WCC 12:30 | PROVIDERS: PCP Internal Medicine; Visit Provider Surgery | DX: T86.821 Skin graft (allograft) (autograft) failure (principal); Z09 Encounter for follow-up examination after completed treatment for conditions other than malignant neoplasm; Z85.828 Personal history of other malignant neoplasm of skin; Z87.2 Personal history of diseases of the skin and subcutaneous tissue; Z92.21 Personal history of antineoplastic chemotherapy; Z79.01 Long term (current) use of anticoagulants; Z79.891 Long term (current) use of opiate analgesic; Z79.899 Other long term (current) drug therapy | CPT/HCPCS: 11042; 99212; 99213 ==

== ENCOUNTER 2025-01-29 10:14 | Outpatient (AMB) | payer MEDICARE, MEDICAID, SELFPAY ==
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
--- OUTSIDE RECORDS SUMMARY | 2025-01-29 10:58 | XMS_ITS | Encounter Summary ---
Author Organization [facility] Address [address] [place] [address] Care Team Providers Care Tapping Machine Operator Name Role Phone Eva Monreal Primary Care Provider [phone] Reason for Visit * Reason Onset Date Comments Appointment Rescheduling 02/15/2022 Encounter Details Date Type Department Care Team ([facility] Contact Info) Description 02/15/2022 Telephone [facility] Central Scheduling Department [address] [place] [address] Telephone Intake, Staff Appointment Rescheduling Social History [...] on filedocumented in this encounter Care Teams Tapping Machine Operator Relationship Specialty Start Date End Date Eva Monreal [address] [place] [address] PCP - General Internal Medicine 12/12/20 documented as of this encounter
== END 2025-01-29 10:48 | disposition home or self-care (01) ==
LOC: HO.HOP 10:14
PROVIDERS: PCP Internal Medicine; Visit Provider Clinical Nurse Specialist Psychiatric/Mental Health
DX: F42.2 Mixed obsessional thoughts and acts (principal); F06.31 Mood disorder due to known physiological condition with depressive features
CPT/HCPCS: 99214

== ENCOUNTER → 2025-01-29 10:14 | Outpatient (BNVA) | payer MEDICARE, MEDICAID, SELFPAY | PROVIDERS: PCP Internal Medicine; Visit Provider Clinical Nurse Specialist Psychiatric/Mental Health | DX: F42.2 Mixed obsessional thoughts and acts (principal); F06.31 Mood disorder due to known physiological condition with depressive features; Z71.89 Other specified counseling | CPT/HCPCS: 99212 ==

== ENCOUNTER 2025-02-25 15:40 | Outpatient (AMB) | payer MEDICARE, MEDICAID, SELFPAY ==
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
--- OUTSIDE RECORDS SUMMARY | 2025-02-25 17:07 | XMS_ITS | Encounter Summary ---
Author Organization [facility] Address [address] [place] [address] Care Team Providers Care [place] Redevelopment Site Manager Name Role Phone Eva Monreal Primary Care Provider [phone] Reason for Visit * Reason Onset Date Comments Appointment Rescheduling 02/15/2022 Encounter Details Date Type Department Care Team ([facility] Contact Info) Description 02/15/2022 Telephone [facility] Central Scheduling Department [address] [place] [id number] Telephone Intake, Staff Appointment Rescheduling Social History [...] on filedocumented in this encounter Care Teams [employer] [employer] Manager Relationship Specialty Start Date End Date Eva Monreal [address] [place] [address] PCP - General Internal Medicine 12/12/20 documented as of this encounter
== END 2025-02-25 15:41 | disposition home or self-care (01) ==
LOC: HO.HOP 15:40
PROVIDERS: PCP Internal Medicine; Visit Provider Clinical Nurse Specialist Psychiatric/Mental Health
DX: F42.2 Mixed obsessional thoughts and acts (principal); F06.31 Mood disorder due to known physiological condition with depressive features
CPT/HCPCS: 99214

== ENCOUNTER → 2025-02-25 15:40 | Outpatient (BNVA) | payer MEDICARE, MEDICAID, SELFPAY | PROVIDERS: PCP Internal Medicine; Visit Provider Clinical Nurse Specialist Psychiatric/Mental Health | DX: F42.2 Mixed obsessional thoughts and acts (principal); F06.31 Mood disorder due to known physiological condition with depressive features | CPT/HCPCS: 99212 ==

== ENCOUNTER 2025-04-02 10:09 | Outpatient (AMB) | payer MEDICARE, MEDICAID, SELFPAY ==
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
--- OUTSIDE RECORDS SUMMARY | 2025-04-02 10:53 | XMS_ITS | Clinical Summary ---
Author Organization [facility] Address [address] [place] [address] Care Team Providers Care Hedis Nurse Name Role Phone Unavailable Primary Care Provider [...]
--- OUTSIDE RECORDS SUMMARY | 2025-04-02 10:54 | XMS_ITS | Encounter Summary ---
Author Organization [facility] Address [address] [place] [address] Care Team Providers Care Water Systems Designer Name Role Phone Eva Mnoreal Primary Care Provider [phone] Reason for Visit * Reason Onset Date Comments Appointment Rescheduling 02/15/2022 Encounter Details Date Type Department Care Team ([facility] Contact Info) Description 02/15/2022 Telephone [facility] Central Scheduling Department [address] [place] [phone] Telephone Intake, Staff Appointment Rescheduling Social History [...] on filedocumented in this encounter Care Teams Water Systems Designer Relationship Specialty Start Date End Date Eva Monreal [address] [place] [address] PCP - General Internal Medicine 12/12/20 documented as of this encounter
--- OUTSIDE RECORDS SUMMARY | 2025-04-02 10:54 | XMS_ITS | Clinical Summary ---
Author Organization [facility] Address [address] [place] [phone] Phone Care Team Providers Care Regulatory Affairs Assistant Name Role Phone Eva Monreal MD Primary Care Provider [phone] Allergies Active Allergy Reactions Criticality Noted Date Comments Amlodipine Other (see comments) 04/22/2024 Other Reaction(s): ankle swell Other Reaction(s): Unknown Other Reaction(s): ankle swell Benzoyl Perox-Hydrocortisone 08/30/2022 Other Reaction(s): rash Other reaction(s): rash Ceftazidime Rash Low 07/20/2017 Cephalosporins Hives 08/25/2008 Other Reaction(s): rash skin test pre-pen, pen G, and ceftriaxone on 06/20/2013, were all negative. However, given the low sensitivity of the latter, this patient should be considered cephalosporin (and carbapenem) allergic unless disproved by an fiber designer by way of a graded challenge. skin test pre-pen, pen G, and ceftriaxone on 06/20/2013, were all negative. However, given the low sensitivity of the latter, this patient should be considered cephalosporin (and carbapenem) allergic unless disproved by an fiber designer by way of a graded challenge. skin test pre-pen, pen G, and ceftriaxone on 06/20/2013, were all negative. However, given the low sensitivity of the latter, this patient should be considered cephalosporin (and carbapenem) allergic unless disproved by an fiber designer by way of a graded challenge. skin test pre-pen, pen G, and ceftriaxone on 06/20/2013, were all negative. However, given the low sensitivity of the latter, this patient should be considered cephalosporin (and carbapenem) allergic unless disproved by an fiber designer by way of a graded challenge. skin test pre-pen, pen G, and ceftriaxone on 06/20/2013, were all negative. However, given the low sensitivity of the latter, this patient should be considered cephalosporin (and carbapenem) allergic unless disproved by an fiber designer by way of a graded challenge. skin test pre-pen, pen G, and ceftriaxone on 06/20/2013, were all negative. However, given the low sensitivity of the latter, this patient should be considered cephalosporin (and carbapenem) allergic unless disproved by an fiber designer by way of a graded challenge. skin test pre-pen, pen G, and ceftriaxone on 06/20/2013, were all negative. However, given the low sensitivity of the latter, this patient should be considered cephalosporin (and carbapenem) allergic unless disproved by an fiber designer by way of a graded challenge. skin test pre-pen, pen G, and ceftriaxone on 06/20/2013, were all negative. However, given the low sensitivity of the latter, this patient should be considered cephalosporin (and carbapenem) allergic unless disproved by an fiber designer by way of a graded challenge. Cilastatin 08/30/2022 Other Reaction(s): rash Other reaction(s): rash Imipenem 02/08/2025 Other Reaction(s): rash Imipenem-Cilastatin Hives Medium 06/20/2013 Lactose Intolerance (Gi) 04/23/2024 Lisinopril Other (see comments) 07/01/2010 Other Reaction(s): cough , Other (See Comments) cough cough cough cough cough cough cough cough Penicillins Other (see comments),Rash Low 07/25/2013 Other Reaction(s): Unknown this patient had a delayed type mac [...] get a delayed type drug rash. Vancomycin Rash Medium 02/01/2013 Medications acetaminophen (TYLENOL) 500 MG tablet Take 1,000 mg by mouth once daily as needed Active apixaban (Eliquis) 2.5 MG tablet Take 2.5 mg by mouth 5 Active apixaban (Eliquis) 5 MG tablet Take 5 mg by mouth 4 Active budesonide EC (ENTOCORT EC) 3 MG 24 hr capsule TAKE 3 CAPSULES (9 MG TOTAL) BY MOUTH DAILY. 2 Active cevimeline (EVOXAC) 30 MG capsule Take 30 mg by mouth in the morning and 30 mg at noon and 30 mg in the evening. 4 Active dilTIAZem CD (CARDIZEM CD) 240 MG 24 hr capsule Take 240 mg by mouth in the morning. 4 Active diphenoxylate-at ropine (LOMOTIL) 2.5-0.025 MG per tablet TAKE 1-2 TABLETS BY MOUTH DAILY FOR 30 DAYS Active doxycycline (MONODOX) 100 MG capsule TAKE 1 TABLET BY MOUTH 2 TIMES A DAY TAKE WITH A FULL GLASS OF WATER AND SIT\ UPRIGHT FOR 30 MINUTES Active DULoxetine (CYMBALTA) [address] capsule in the morning and in the evening. 4 Active Dupilumab (Dupixent) 300 MG/2ML solution auto-injector Active Empagliflozin (Jardiance) 10 MG tablet Take by mouth 1 (one) time each day Active escitalopram (LEXAPRO) 20 MG tablet TAKE 1 TABLET (20 MG) ORALLY DAILY Active famotidine (PEPCID) 20 MG tablet Take 20 mg by mouth 1 Active furosemide (LASIX) 40 MG tablet Take 40 mg by mouth 1 (one) time each day Active gabapentin (NEURONTIN) 300 MG capsule Take 600 mg by mouth in the morning and 600 mg at noon and 600 mg in the evening. Active hydrocortisone (ANUSOL-HC) 25 MG suppository INSERT 1 SUPPOSITORY RECTALLY (25 MG) TWICE A DAY FOR 7 DAYS Active hydrOXYzine (ATARAX) 25 MG tablet TAKE 1 TABLET BY MOUTH EVERY 8 HOURS NEEDED FOR ITCHING Active Lactobacillus capsule Take 1 capsule by mouth in the morning. Active lamoTRIgine (LaMICtal) 25 MG tablet TAKE1 TABLET EVERY EVENING 2 WEEKS, 2 TABLETS EVERY EVENING 2 WEEKS 2 TABS TWICE A DAY AFTERWARDS 5 Active levothyroxine (SYNTHROID, LEVOTHROID) 25 MCG tablet Take 25 mcg by mouth 4 Active loperamide (IMODIUM) 2 MG capsule Take 2 mg by mouth 4 times daily as needed Active LORazepam (ATIVAN) 1 MG tablet Take 1 mg by mouth every 8 hours as needed 6 Active losartan (COZAAR) 25 MG tablet Take 25 mg by mouth in the morning. 4 Active metoprolol succinate XL (TOPROL-XL) 100 MG 24 hr tablet Take 100 mg by mouth 1 (one) time each day Active mirtazapine (REMERON) 7.5 MG tablet TAKE ONE TABLET (7.5 MG) ORALLY AT BEDTIME 4 Active naproxen (NAPROSYN) 250 MG tablet Take 250 mg by mouth in the morning and 250 mg in the evening. Take with meals. Active niacinamide 500 MG tablet Take 500 mg by mouth in the morning and 500 mg in the evening. 8 Active nystatin (MYCOSTATIN) 915411 UNIT/ML suspension SWISH AND SPIT WITH 5 ML 3 (THREE) TIMES A DAY. 2 Active oxyCODONE (ROXICODONE) 5 MG immediate release tablet Take 10 mg by mouth every 30 minutes as needed 1 Active pregabalin (LYRICA) 100 MG capsule Take 100 mg by mouth Active valACYclovir (VALTREX) 500 MG tablet Take 500 mg by mouth 0 Active Vortioxetine HBr (Trintellix) 20 MG tablet Take 1 tablet by mouth 1 (one) time each day 1 Active Active Problems Problem Noted Date Diagnosed Date Stage 3a chronic kidney disease 02/08/2025 Paroxysmal atrial fibrillation 04/06/2024 Overview (02/08/2025): She is symptomatic from her atrial fibrillation we will get her an expedited Anemia of chronic renal failure 04/04/2023 Hypertensive disorder 04/13/2012 Overview (02/08/2025): Hypertensive disorder Encounters Date Type Department Care Team Description 02/08/2025 2:30 PM EDT Office Visit [facility] [address] [place] [phone] Morales Kay MD Stage 3a chronic kidney disease (HCC) (Primary Dx); Hypertensive disorder; Anemia of chronic renal failure 02/06/2025 Documentation Only [facility] [address] [place] [address] Lisa Colmenares MA from Last 3 Months Immunizations Immunization Administration Dates Next Due HiB 10/05/2010,11/03/2009 Influenza (IM) Preservative Free 09/17/2013,06/05 Influenza Split High Dose Pr eservative Free IM 05/14/2024 Influenza Vaccine, Quadrival ent, Adjuvanted 06/10/2023 Influenza, Quadrivalent, Pre servative Free 07/03/2018,06/16/2017,06/18/2015 Influenza, Recombinant, Quad rivalent, Pf 07/01/2019 Influenza, Unspecified 07/12/2011,2009,06/17/2009,07/19,07/20/2004,07/10/2003 MMR 07/19/2005 Meningococcal Polysaccharide 11/03/2009 Pneumococcal Conjugate 10/05/2010,11/03/2009 Pneumococcal Polysaccharide 07/19/2005 Pneumococcal, Unspecified 07/19/2005 Shingrix 04/12/2022 TD Preservative Free 04/23/2015 Tdap 10/05/2010,11/03/2009 Tetanus Toxoid, Unspecified 07/19/2005 Social History Tobacco Use Types Packs/Day Years Used Date Smoking Tobacco: Never Assessed Comments Unknown Sex and Gender Information Value Date Recorded Sex Assigned at Not on file Legal Sex Female 5:02 PM EST Gender Identity Not on file Sexual Orientation Not on file Plan of Treatment Health Maintenance Due Date Last Done Comments Breast Cancer Screening 1955 Colorectal Cancer Screening: Annual FOBT 2003 Colorectal Cancer Screening: Colonoscopy 2003 Colorectal Cancer Screening: Sigmoidoscopy 2003 Pneumococcal Vaccine: 50+ Years (2 of 2 - PCV) 10/05/2011 10/05/2010, 11/03/2009, 07/19/2005, Additional history exists Influenza Vaccine (#1) 2025 , 06/10/2023, 07/01/2019, Additional history exists Pneumococcal Vaccine: Peds (0 to 5 Years) and At-Risk Patients (6 to 49 Years) Discontinued 10/05/2010, 11/03/2009, 07/19/2005, Additional history exists Hepatitis B Vaccine Aged Out No longe r eligible based on patient's age to complete this topic Insurance Medicare Medicaid [place] Care Teams Regulatory Affairs Assistant Relationship Specialty Start Date End Date Eva Monreal MD [address] [place] [address] PCP - General Internal Medicine 02/06/25
--- OUTSIDE RECORDS SUMMARY | 2025-04-02 10:54 | XMS_ITS | Clinical Summary ---
Author Organization [facility] Address [address] [place] [address] Phone Care Team Providers Care Home Health Care Physician Name Role Phone Eva Monreal MD Primary Care Provider [phone] Allergies Active Allergy Reactions Criticality Noted Date Comments Lisinopril 12/20/2024 Penicillins 12/20/2024 Medications linaCLOtide (Linzess) 290 mcg capsuleIndication s:Slow transit constipation Take 1 capsule (290 mcg total) by mouth 1 (one) time each day before breakfast. 30 each 11 5 02/09/20 26 Active linaCLOtide (Linzess) 290 mcg capsuleIndication s:Slow transit constipation Take 1 capsule (290 mcg total) by mouth 1 (one) time each day before breakfast. 30 each 11 5 02/09/20 26 Active Encounters Date Type Department Care Team Description 02/08/2025 Telephone Gastroenterology - [address] [phone] Swetha Romero NP 02/07/2025 3:51 PM EDT - 02/07/2025 11:59 PM EDT Hospital Encounter [facility] CT Scan [address] [place] [phone] LLQ pain Discharge Disposition: Home or Self Care 02/07/2025 3:10 PM EDT Office Visit Gastroenterology - [address] [phone] Swetha Romero, TERESE Other constipation (Primary Dx); Periumbilical mass from Last 3 Months Social History Tobacco [...] - Inhaled Oxygen Concentration - - Weight 56.2 kg (124 lb) 02/07/2025 3:22 PM EDT Height 172.7 cm (5' 8 ) 12/20/2024 2:38 PM EDT Body Mass Index 18.85 12/20/2024 2:38 PM EDT Plan of Treatment Health Maintenance Due Date Last Done Comments Breast Cancer Screening 1955 RSV Immunization Adult Patients (1 - Risk 60-74 years 1-dose series) 2014 Zoster Vaccines (2 of 2) 06/07/2022 04/12/2022 Falls Risk Assessment 09/30/2023 Hepatitis C Screening 09/30/2023 Medicare Annual Wellness Visit 09/30/2023 Osteoporosis Screening (Bone Density Screening) 09/30/2023 Social Influencers of Health Screening 09/30/2023 Depression Screening 09/05/2024 DTaP,Tdap,and Td Vaccines (4 - Td or Tdap) 04/23/2025 04/23/2015, 10/05/2010, 11/03/2009 Influenza Vaccine (#1) 2025 , 06/10/2023, 05/21/2022, Additional history exists Hypertension/CHF/CAD Annual BMP Blood Test 02/05/2026 02/05/2025, 01/02/2025, 10/03/2024, Additional history exists Cholesterol Screening (Lipid Panel) 01/02/2030 01/02/2025, 12/14/2018 Colorectal Cancer Screening: Colonoscopy 02/08/2035 02/08/2025 MMR Vaccines Aged Out 07/19/2005 No longer eligi ble based on patient's age to complete this topic Meningococcal ACWY Vaccine Aged Out 11/03/2009 N o longer eligible based on patient's age to complete this topic HIB Vaccines Aged Out 10/05/2010, 11/03/2009 No lo nger eligible based on patient's age to complete this topic COVID-19 Vaccine Completed 02/06/2025, 05/2024, 12/26/2023, Additional history exists Pneumococcal Vaccine: 50+ Years Completed 02/06/2025, 07/19/2005, 07/19/2005 HPV Vaccines Aged Out No longer eligi [...] Procedure Name Priority Date/Time Associated Diagnosis Comments EXTERNAL COLONOSCOPY REPORT Routine 02/08/2025 9:[address] ABDOMEN PELVIS W CONTRAST Routine 02/07/2025 5:00 PM EDT LLQ pain from Last 3 Months Results * External Colonoscopy Report (02/08/2025 9:48 AM EDT) Anatomical Region Laterality Modality Endoscopy us Historical Provider GI~PROCEDURE ORDERABLES F inal Result * CT Abdomen Pelvis w Contrast (02/07/2025 5:00 PM EDT) Anatomical Region Laterality Modality Body Computed Tomogra phy 02/07/2025 5:21 PM EDT Impressions 02/07/2025 5:21 PM EDT Impression: 1. Findings described above raising the possibility of left-sided pelvic venous congestion syndrome. 2. Uahnanus-jz-pudqh colonic stool burden. 3. No other acute abnormalities or CT explanation for reported history of left lower quadrant pain. This document has been electronically signed by: Nirmal Wong MD on 02/07/2025 17:21:39 Narrative 02/07/2025 5:21 PM EDT INDICATION: LLQ abdominal pain Exam: Contrast-enhanced CT abdomen and pelvis with multiplanar reformats. Comparison: None. Findings: CT abdomen: Lung bases are clear. A moderate-sized hiatal hernia is present. Liver is free of focal lesions and ductal dilatation. Gallbladder is unremarkable. Spleen is diminutive and partially calcified. Pancreas and adrenal glands appear unremarkable. Kidneys reveal small right renal cyst measuring up to 15 mm (3; 49, 17 Hounsfield units). Additional tiny subcentimeter left renal hypodensities are too small to characterize although likely represent tiny cysts. There are punctate nonobstructing right renal upper pole calculi. No ureteral stones or hydroureteronephrosis. No free intraperitoneal fluid or retroperitoneal masses or adenopathy. Abdominal aorta is normal caliber with svdx-ni-vxfsmukx calcific atherosclerosis. Bowel loops reveal a onfwsixp-ms-esvqn colonic stool burden. Otherwise, no abnormal bowel wall thickening or distention. The appendix is unremarkable. No significant appearing diverticular disease. CT pelvis: Left adnexal vessels are prominent, raising concern for pelvic venous congestion syndrome. There is compression of the left renal vein between superior mesenteric artery and aorta with a vein measuring between 2 and 3 mm AP thickness at this level (3; 44), again raising the possibility of left-sided pelvic venous congestion syndrome. Uterus and adnexal structures otherwise unremarkable. Urinary bladder is free of gross filling defects. No pelvic masses, fluid or adenopathy. Osseous structures reveal no destructive osseous lesions. Procedure Note Nirmal Wong MD - 02/07/2025 INDICATION: LLQ abdominal pain Exam: Contrast-enhanced CT abdomen and pelvis with multiplanarreformats. Comparison: None. Findings: CT abdomen: Lung bases are clear. A moderate-sized hiatal hernia is present. Liver is free of focal lesions and ductal dilatation.Gallbladder is unremarkable. Spleen is diminutive and partially calcified. Pancreas and adrenal glands appear unremarkable. Kidneys reveal small right renal cyst measuring up to 15 mm (3; 49, 17 Hounsfield units). Additional tiny subcentimeter left renalhypodensities are too small to characterize although likely represent tiny cysts.There are punctate nonobstructing right renal upper pole calculi. No ureteral stones or hydroureteronephrosis. No free intraperitoneal fluid or retroperitoneal masses or adenopathy. Abdominal aorta is normal caliber with bnog-fq-snjlbhmm calcific atherosclerosis. Bowel loops reveal a ajncwfui-hd-hgjaz colonic stool burden. Otherwise,no abnormal bowel wall thickening or distention. The appendix is unremarkable. No significant appearing diverticular disease. CT pelvis: Left adnexal vessels are prominent, raising concern forpelvic venous congestion syndrome. There is compression of the left renal vein between superior mesenteric artery and aorta with a vein measuringbetween 2 and 3 mm AP thickness at this level (3; 44), again raising the possibility of left-sided pelvic venous congestion syndrome. Uterus and adnexal structures otherwise unremarkable. Urinary bladder is free of gross filling defects. No pelvic masses, fluid or adenopathy. Osseous structures reveal no destructive osseous lesions. IMPRESSION: Impression: 1. Findings described above raising the possibility of left-sided pelvic venous congestion syndrome. 2. Rcabdlmm-qx-rutjj colonic stool burden. 3. No other acute abnormalities or CT explanation for reported historyof left lower quadrant pain. This document has been electronically signed by: Nirmal Wong MD on 02/07/2025 17:21:39 Swetha Romero NP IM CT PROCEDURES Final Resul t from Last 3 Months Insurance MEDICARE [place] Member Subscriber Plan / Payer (Ef fective 2024-Present) Name:PHYLLIS LIN Relation to Subscriber:Self Name:Phyllis Lin Payer ID:[id number] Group ID:Not on file Type:Not on file Address: [facility] [employer] [facility] ATTN:CLAIMS [address] [place] [address] Care Teams Home Health Care Physician Relationship Specialty Start Date End Date Eva Monreal MD [address]aly [address] [address] PCP - General 10/26/22
--- OUTSIDE RECORDS SUMMARY | 2025-04-02 10:54 | XMS_ITS | Data Portability ---
Author Organization [facility] [employer] [employer] Address [address] [place] [phone] Care Team Providers Care Bottle Packer Name Role Phone SHAYLEE JENSEN Referring Provider AASHISH WRAY Referring Provider SHAYLEE JENSEN Primary Care Provider [phone] Assessment Encounter Date Assessment Date Assessment LastModified [...] these by her healthcare providers at the [facility] [place]. In this context, we decided that she [...] maybe even 4 months. She understands. Physical therapy which she was in for other reasons gave her exercises. I showed her some stretching [...] duloxetine. She would like to do this. >>>>>>>>>>>>[facility] 2023 I can think of two possible [...] these by her healthcare providers at the [facility] [place]. In this context, we decided that she [...] Follow-up 1 month. Florentin Hooper MD PhD [place] Not available 09/13/2024 15:54:54 10/16/2024 [...] I suggested increase to duloxetine 120 mg daily with continued attention to her blood pressure. I [...] maybe even 4 months. She understands. Physical therapy which she was in for other reasons gave her exercises. I showed her some stretching [...] duloxetine. She would like to do this. >>>>>>>>>>>>[facility] 2023 I can think of two possible [...] these by her healthcare providers at the [facility] [place]. In this context, we decided that she [...] Follow-up 1 month. Florentin Hooper MD PhD [place] [facility] Not available 10/16/2024 18:02:20 12/05/2024 12/05/2024 IMPRESSION: Postherpetic neuralgic continual intense itching in [...] although partially waning after the first week. --December 05, 2024 duloxetine 60 mg 7 AM/2 PM helps itching/tiny knives probably a little in the middle of the day. >>>>>>>>>>>>December 05, 2024 She would like some additional benefit. She has heard from user groups that pregabalin helps but she has tried that previously. I suggest lamotrigine. We discussed possible side effects including rash. We decided on a cautious titration. >>>>>>>>>>>>Februa ry 2024 I suggested increase to duloxetine 120 mg daily with continued attention to her blood pressure. I [...] maybe even 4 months. She understands. Physical therapy which she was in for other reasons gave her exercises. I showed her some stretching [...] duloxetine. She would like to do this. >>>>>>>>>>>>[facility] 2023 I can think of two possible [...] these by her healthcare providers at the [facility] [place]. In this context, we decided that she will call if she is interested in Botox in which case we will attempt preauthorization. She will also call if she is not interested in Botox but wishes to discuss the medication direction further. >>>>>>>>>>>> PLAN John Lin December 05, 2024 To help postherpetic right shoulder itching and stabbing pain: Lamotrigine 25 mg tablets: 1 tablet every evening 2 weeks, 2 tablets every evening 2 weeks 2 tablets twice a day afterwards Lamotrigine may occasionally cause a side effect of rash. If rash happens, stop the medicine and call me. Lamotrigine may occasionally may cause mild dizziness, headache, blurry vision, stomach upset. If side effects are mild, stand medicine a few days as side effects often go away. If side effects are not mild, or do not go away, reduce the medication to the previous dose at which he did not have side effects. CONTINUE duloxetine 90 mg every morning -> 60 mg 7AM/2PM Follow-up 2 month. Florentin Hooper MD PhD [place] Not available 12/05/2024 12:52:57 Plan of Treatment Reminders Order Date Submit Date Provider Last Modified By Organization Details Last Modified Time Details Appointments FOLLOW UP EXT 2024 02:00P Jennifer Hooper MD PhD Not available Not available Not available Lab None record ed. Referral None record ed. Procedures None record ed. Surgeries None record ed. Imaging None record ed. Medication Orders lamotr igine 25 mg tablet 2024 025 hollie [facility]/Pharmacy #[id number], [address] [place], [address], 12/05/2024 16:33:31 duloxe jose alfredo 60 mg capsul e,rikki yed releas e 2024 025 [facility]/Pharmacy #[id number], [address] [place], [address], 10/16/2024 17:22:59 duloxe jose alfredo 30 mg capsul e,rikki yed releas e 2024 025 [id number] [address] [place], [address], 09/13/2024 15:56:50 Patient TargetsNo targets recorded. Patient Instructions Encounter Date Encounter Id Patient Instructions Last Modified By Organization Details Last Modified Time 05/24/2024 [id number] Discussion acros s issues of diagnoses and management and same day associated chart review and management greater than 50% greater than 60 minutes mrossen Not available 05/24/2024 14:38:56 09/13/2024 [id number] Discussion acros s issues of diagnoses and management and same day associated chart review and management greater than 50% greater than 40 minutes mrossen Not available 09/13/2024 15:55:04 10/16/2024 [id number] Discussion acros s issues of diagnoses and management and same day associated chart review and management greater than 50% greater than 40 minutes mrossen Not available 10/16/2024 17:10:33 12/05/2024 [id number] Chronic conditio n with exacerbation; prescription medication management mrossen Not available 12/05/2024 12:53:10 Reason for Referral None Reported. Procedures Surgical History Date Name Laterality Status Provider Name and Address Organization Details Recorded Time botulinum injection completed Florentin Hooper MD [address] [place], [address], [facility] 08/22/2024 17:41:31 Imaging Results None [...] Not Available Not Available No t Available diphenoxyla te-atropine 2.5 mg-0.025 mg tablet TAKE 1-2 TABLETS BY MOUTH DAILY FOR 30 DAYS active Not Available Not Available No t Available valacyclovi r 500 mg tablet TAKE 1 TABLET BY MOUTH TWICE A DAY active Not Available Not Available No t Available levothyroxi ne 25 mcg tablet TAKE 1 TABLET BY MOUTH EVERY MORNING active Not Available Not Available No t Available lamotrigine 25 mg tablet TAKE 1 TAB BY MOUTH EACH EVENING 2 WKS, THEN 2 TABS EACH EVENING 2 WKS THEN 2 TABS TWICE A DAY AFTER active Not Available Not Available No t Available clobetasol 0.05 % topical gel APPLY TOPICALLY TO THE AFFECTED AREA TWICE DAILY. active Not Available Not Available No t Available hydrocortis one acetate 25 mg rectal suppository INSERT 1 SUPPOSITO RY RECTALLY (25 MG) TWICE A DAY FOR 7 DAYS active Not Available Not Available No t Available levothyroxi ne 75 mcg tablet TAKE 2 TABLETS BY MOUTH EVERY TUESDAY, TUESDAY , AND TUESDAY. TAKE 1 TABLET ON OTHER DAYS active Not Available Not Available No t Available dexamethaso ne 0.5 mg/5 mL oral solution SWISH AND HOLD 5 ML IN MOUTH FOR 4-5 MIN, THEN SPIT, 3 TIMES A DAY. NO FOOD/DRIN K FOR 20 MIN AFTER active Not Available Not Available No t Available ciclopirox 8 % topical solution PLEASE SEE ATTACHED FOR DETAILED DIRECTION S active Not Available Not Available No t Available famotidine 20 mg tablet TAKE 1 TABLET BY MOUTH TWICE A DAY active Not Available Not Available No t Available lorazepam 0.5 mg tablet TAKE 1 TABLET ORALLY DAILY NEEDED FOR ANXIETY active Not Available Not Available No t Available doxycycline monohydrate 100 mg capsule TAKE 1 TABLET BY MOUTH 2 TIMES A DAY TAKE WITH A FULL GLASS OF WATER AND SIT\ UPRIGHT FOR 30 MINUTES active Not Available Not Available No t Available levothyroxi ne 50 mcg tablet TAKE 1 TABLET BY ORAL ROUTE ONCE DAILY FOR 90 DAYS active Not Available Not Available No t Available cephalexin 500 mg capsule TAKE 1 CAPSULE BY MOUTH 4 TIMES A DAY UNTIL FINISHED active Not Available Not Available No t Available calcipotrie ne 0.005 % topical cream PLEASE SEE ATTACHED FOR DETAILED DIRECTION S active Not Available Not Available No t Available cevimeline 30 mg capsule TAKE 1 CAPSULE BY MOUTH 3 TIMES A DAY. active Not Available Not Available No t Available losartan 25 mg tablet TAKE 1 TABLET (25 MG TOTAL) BY MOUTH DAILY. active Not [...] mupirocin 2 % topical ointment APPLY TOPICALLY TO THE AFFECTED GUSTAVO 3 TIMES A DAY active Not Available [...] t Available oxycodone 5 mg tablet TAKE 2 TABLETS (10 MG TOTAL) BY MOUTH EVERY 4 HRS NEEDED (MAX 6 TABLETS PER DAY, 20 DAY SUPPLY). active Not Available Not Available No t [...] t Available mirtazapine 7.5 mg tablet TAKE 1 TABLET BY MOUTH ORALLY AT BEDTIME active Not Available Not [...] gram-22.74 gram-6.74 gram-5.86 gram oral solution TAKE 4,000 ML BY MOUTH ONE TIME FOR 1 DOSE active Not Available Not Available No t Available Linzess 290 mcg capsule TAKE 1 CAPSULE BY MOUTH ONCE DAILY BEFORE BREAKFAST active Not Available Not Available No t [...] Updated DateTime 05/24/2024 170.18 cm 18.8 kg/m2 73346.08 g 12 /min Dee Vasquez [facility] 05/24/2024 13:15:33 Social History Question Answer Notes LastModified by Organizat ion Details LastModified Time Tobacco Smoking Status Never Smoker Dee parker [facility] 05/24/2024 13:16:06 What Is Your Level Of Caffeine Consumption? Moderate Information not available 05/24/2024 What Is The Highest Grade Or Level Of School You Have Completed Or The Highest Degree You Have Received? RN13108-1 Information not available 05/24/2024 Which Of Your Hands Is Dominant? Right Information not available 05/24/2024 Sex: Unknown Functional Status Question Answer Note LastModified by Organizat ion Details LastModified Time What is your level of alcohol consumption? Occasional Information not available 05/24/2024 Mental Status None recorded. Family History Nothing Reported. Medical History Condition Response Claustrophobia N Hospitalizations N Head Trauma/Injury N High Blood Pressure or Hypertension Y Thyroid Problems N Lung Disease N COPD or emphysema N Brain Tumors N Depression Y Encephalitis N Vitamin B12 deficiency N PTSD N Spine Problems N Heart Attack ([place]) N Obstructive Sleep Apnea N Alcoholism N [...] SNOMED-CT Code Diagnosis ICD10 Code Diagnosis Note [id number] Florentin Hooper MD [address] [place] [address] 05/24/2024 13:05:49 05/24/2024 15:47:32 Post-herpetic neuritis [id number] B02.29 [id number] Florentin Hooper MD [facility] [address] [place] [address] [place] [address] 08/22/2024 15:52:16 08/22/2024 17:52:14 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 [id number] Florentin Hooper MD [facility] [address] [place] [address] [place] [address] 09/13/2024 14:42:26 09/13/2024 16:42:55 Post-herpetic neuritis [id number] B02.29 [id number] Florentin Hooper MD [facility] [address] [place] [address] [place] [address] 10/16/2024 17:05:45 10/17/2024 07:51:24 Post-herpetic neuritis [id number] B02.29 [id number] Florentin Hooper MD [facility] [address] [place] [address] [place] [address] 12/05/2024 12:09:26 12/05/2024 15:47:44 Post-herpetic neuritis [id number] B02.29 Health Concerns Section Related Observation LastModified by Organization Detai ls LastModified Time None Recorded Concern Status LastModified by Organization Details LastModified Time None Recorded Advance Directives Directive None Recorded Payers Insurance Date Sequence Insurance Name Policy Number Policy Slaughter Covered Member ID Slaughter Member ID Guarantor Name 02/28/2025 2 [place] [facility] John Lin [id number] John Lin 12/10/2024 1 [place] B[place] [employer] John Lin [id number] John Lin OBGyn Episode No OBEpisode recorded.
== END 2025-04-02 10:10 | disposition home or self-care (01) ==
LOC: HO.HOP 10:09
PROVIDERS: PCP Internal Medicine; Visit Provider Clinical Nurse Specialist Psychiatric/Mental Health
DX: F42.2 Mixed obsessional thoughts and acts (principal); F06.31 Mood disorder due to known physiological condition with depressive features
CPT/HCPCS: 99214

== ENCOUNTER 2025-04-30 20:09 | Emergency (ER) | payer MEDICARE, MEDICAID, SELFPAY ==
--- NOTE | ~2025-04-30 | CT_ITS ---
CLINICAL HISTORY: L flank hematoma CT abdomen and pelvis with contrast Comparison: CT - CT ABDOMEN PELVIS W IV CON - 09/22/24 16:24 EST Findings: The lung bases are clear. Unremarkable gallbladder. Periportal edema, which may be related to fluid resuscitation. Atrophic calcified spleen. Nonobstructing 0.2 cm stone in the upper pole of the right kidney. Left kidney unremarkable. No hydronephrosis or hydroureter bilaterally. Remaining solid organs unremarkable. No bowel obstruction, pneumoperitoneum, or pneumatosis. Urinary bladder is underdistended, limiting evaluation. Uterus and adnexa appear surgically absent. Appendix not definitely visualized. No intra-abdominal or abdominal wall hematoma. The bones are intact. IMPRESSION: No hematoma Otherwise unremarkable exam This document has been electronically signed by: Real Gong MD on 05/01/2025 04:31:46
[2025-04-30 21:06] VITALS: BP 141/81; PULSE 82; RESP 15; TEMP 36.9; O2SAT 99; BMI 18.9
--- OUTSIDE RECORDS SUMMARY | 2025-05-01 00:33 | XMS_ITS | Encounter Summary ---
Author Organization [facility] Address [address] [facility] [address] [place] [address] Phone Care Team Providers Care Trumpet Teacher Name Role Phone De Enciso MD Unavailable [phone] Eva Monreal MD Primary Care Provider + [phone] Aydee Flores [facility] Unavailable Theresa Sweet Unavailable Unavailable Daniel Reed Unavailable [email or web address] Magalis Fong MD Unavailable +- [phone] Marilu Anderson Unavailable [phone] Micaela Cobb CNP Unavailable Encounter Details Date Type Department Care Team (Late st Contact Info) Description 04/04/2025 Orders Only [facility] [place] [address] [place] [address] Lit Allen [facility] [address] [place] [address] Anemia associated with chronic renal failure (Primary Dx) Social History Tobacco Use Types Packs/Day Years Used Date Smoking Tobacco: Never Smokeless Tobacco: Never Alcohol Use Standard Drinks/Week Comments Yes 0 (1 standard drink = 0.6 oz pure alcohol) Glass of wine or occasional mixed drink 3X/month Education Answer Date Recorded Are you interested in more education? Not on carl e 12/30/2022 Are you concerned about learning? Not on file 12/30/2022 No 12/30/2022 No 12/30/2022 Digital Access Answer Date Recorded No 01/26/2023 No 01/26/2023 Reliable internet access at home? Not on file 01/26/2023 Device with a working camera? Not on file Intimate Partner Violence Answer Date R ecorded Are you denied basic needs s uch as food, clothing, or medical care? No 08/24/2024 In the past 12 months have y ou been in a relationship with a person who hurts, threatens, or tries to control you? No 08/24/2024 Are you denied basic needs s uch as food, clothing, or medical care? No 08/24/2024 In the past 12 months have y ou been in a relationship with a person who hurts, threatens, or tries to control you? 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 Not on file Not on file documented as of this encounter Plan of Treatment Upcoming Encounters Date Type Department Care Team (Late st Contact Info) Description 10/31/2024 Procedure Pass Echo Lab [place] [place] [address] 05/09/2025 1:40 PM EDT Appointment [facility] [address] [place] [address] Marilu Anderson MBBS [address] [place] [address] 05/09/2025 2:30 PM EDT Office Visit [facility] [address] [place] [address] Marilu Anderson MBBS [address] [place] [address] 05/09/2025 3:40 PM EDT Infusion [facility] at [address] [address] Marilu Anderson MBBS [address] [place] [address] 05/27/2025 10:30 AM EDT Office Visit [facility] [address] [address] Lily Cuevas MD [address] [place] [address] [email or web address] 05/30/2025 3:00 PM EDT Appointment Echo Lab [address] [address] Jose Vela DO 22 [facility] [address] [place] [address] 09/11/2025 1:00 PM EST Office Visit [facility] [address] [place] [address] 3rd Floor, [address] [place] [address] Segun Finnegan MD [address] [place] [address] documented as of this encounter Results * (ABNORMAL) Comprehensive metabolic panel (04/08/2025 12:00 PM EDT) SODIUM 134 133 - 146 mmol/L [facility] POTASSIUM 4.6 3.3 - 5.1 mmol/L [facility] CHLORIDE 95(L) 96 - 108 mmol/L [facility] CO2 25 21 - 35 mmol/L [facility] BUN 28(H) 6 - 19 mg/dL [facility] CREATININE 1.50 0.5 - 1.5 mg/dL [facility] GLUCOSE 96 70 - 99 mg/dL [facility] ALBUMIN 3.8(L) 3.9 - 4.8 g/dL [facility] TOTAL PROTEIN 6.4(L) 6.5 - 8.0 g/dL [facility] CALCIUM 9.0 8.4 - 10.3 mg/dL [facility] ALKALINE PHOSPHATASE 180(H) 39 - 117 U/L [facility] TOTAL BILIRUBIN 0.4 0.0 - 1.2 mg/dL [facility] AST 24 0 - 37 U/L [facility] ALT 17 0 - 40 U/L [facility] GLOBULIN 2.6 1 - 4.8 g/dL [facility] EGFR 37(L) >59 mL/min/1.7 3m2 [facility] Comment:Estimated glomerular filtration rate calculated using the CKD-EPI refit equation. ANION GAP 19 10 - 20 mmol/L [facility] Blood 04/08/2025 12:0 0 PM EDT 04/08/2025 12:02 PM EDT us Marilu [facility] BLOOD ORDERABLES Final R esult [facility] [address] [place] [address] * (ABNORMAL) CBC and differential (04/08/2025 12:00 PM EDT) WBC 9.49 4.00 - 11.00 K/uL [facility] RBC 2.53(L) 4.00 - 5.20 M/uL [facility] HGB 8.6(L) 12.0 - 16.0 g/dL [facility] HCT 25.8(L) 36.0 - 46.0 % [facility] PLT 221 150 - 450 K/uL [facility] MCV 102.0(H) 80.0 - 100.0 fL [facility] MCH 34.0(H) 27.0 - 31.0 pg [facility] MCHC 33.3 32.0 - 36.0 g/dL [facility] RDW 18.5(H) 11.5 - 14.5 % [facility] MPV 9.5 8.4 - 12.0 fL [facility] NRBC 0.00 0.00 /100 WBCs [facility] ABSOLUTE NRBC 0.00 0.00 K/uL [facility] DIFF METHOD Auto [facility] NEUTS 64.0 48.0 - 76.0 % [facility] LYMPHS 20.5 18.0 - 41.0 % [facility] MONOS 10.1 4.0 - 11.0 % [facility] EOS 4.8 0.0 - 5.0 % [facility] BASOS 0.3 0.0 - 1.5 % [facility] Granulocytes, immature (%) 0.3 0.0 - 0.9 % [facility] ABSOLUTE NEUTS 6.06 1.92 - 7.60 K/uL [facility] ABSOLUTE LYMPHS 1.95 0.72 - 4.10 K/uL [facility] ABSOLUTE MONOS 0.96 0.16 - 1.10 K/uL [facility] ABSOLUTE EOS 0.46 0.00 - 0.50 K/uL [facility] ABSOLUTE BASOS 0.03 0.00 - 0.15 K/uL [facility] Granulocytes, immature 0.03 0.00 - 0.09 K/uL [facility] Blood 04/08/2025 12:0 0 PM EDT 04/08/2025 12:02 PM EDT us Marilu [facility] BLOOD ORDERABLES Final R esult Performing Organization Address City/State/[facility] Co de Phone Number [address] [address] documented in this encounter Visit Diagnoses Diagnosis Anemia associated with chronic renal failure- Primary Anemia in chronic kidney disease documented in this encounter Care Teams Trumpet Teacher Relationship Specialty Start Date End Date Eva Monreal MD [address] [place] [address] [email or web address] PCP - General Internal Medicine 04/03/19 De Enciso MD [address] [place] [address] Historical LMR Provider 01/16/15 Aydee Flores LICSW [address] [place] [address] [email or web address] [employer]room[employer] Press Feeder Oncology 06/09/21 Theresa Sweet [address] [place] [address] 10/06/22 Daniel Reed [address] [place] [address] [email or web address] Information Systems Director 06/21/21 Magalis Fong MD [address] [place] [address] Gastroenterology 09/12/23 Marilu Anderson MBBS [address] [place] [address] [email or web address] Primary Oncologist Medical Oncology 01/09/25 Micaela Cobb CNP [address] [place] [address] Nurse Practitioner Nurse Practitioner 04/05/25 documented as of this encounter Additional Source Comments The information contained in this document represents components of the legal health record. It is not the complete legal health record.[facility]
--- OUTSIDE RECORDS SUMMARY | 2025-05-01 00:33 | XMS_ITS | Clinical Summary ---
Author Organization [facility] Address [address] [place] [address] Care Team Providers Care Health Promotion Specialist Name Role Phone Eva Monreal Primary Care Provider [phone] Allergies Active Allergy Reactions Criticality Noted Date Comments Ceftazidime Rash Low 07/20/2017 Cephalosporins Hives 08/25/2008 skin test pre-pen, pen G, and ceftriaxone on 06/20/2013, were all negative. However, given the low sensitivity of the latter, this patient should be considered cephalosporin (and carbapenem) allergic unless disproved by an appliquer by way of a graded challenge. skin test pre-pen, pen G, and ceftriaxone on 06/20/2013, were all negative. However, given the low sensitivity of the latter, this patient should be considered cephalosporin (and carbapenem) allergic unless disproved by an appliquer by way of a graded challenge. 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 Overview (02/11/2021): IMO update Hypertensive [...] , 11/26/2021, 06/22/2021 COVID-19 Vaccine (5 - 2023- season) 2024 10/15/2021, 04/19/2021, 11/18/2020, Additional history exists Alcohol/Substance Use Screening 09/05/2024 Depression Screening and Follow-Up 09/05/2024 Health Care Proxy Review 09/05/2024 Social Drivers of Health Annual Screening 09/05/2024 DTaP,Tdap,and Td Vaccines (4 - Td or Tdap) 04/23/2025 04/23/2015, 10/05/2010, 11/03/2009 Influenza Vaccine (#1) 2025 , 06/07/2020, 07/01/2019, Additional history exists Hepatitis B Vaccines Aged Out No long er eligible based on patient's age to complete this topic Insurance MEDICARE Member Subscriber Plan / Payer (Ef fective 2009-Present) Name:John Lin Member ID:[id number] Relation to Subscriber:Self Name:John Lin Subscriber ID:[id number] Payer ID:[id number] Group ID:Not on file Type:Not on file Address: Verónica ALTAMIRANO [address] [place] [id number] [place] [address] Care Teams Health Promotion Specialist Relationship Specialty Start Date End Date Eva Monreal [address] [place] [address] PCP - General Internal Medicine 12/12/20
--- OUTSIDE RECORDS SUMMARY | 2025-05-01 00:33 | XMS_ITS | Clinical Summary ---
Author Organization [facility] Address [address] [place] [address] Care Team Providers Care Tent Assembler Name Role Phone Unavailable Primary Care Provider [...]
--- OUTSIDE RECORDS SUMMARY | 2025-05-01 00:33 | XMS_ITS | Encounter Summary ---
Author Organization [facility] Address [address] [place] [address] Phone Care Team Providers Care Filter Tank Tender Helper Head Name Role Phone De Enciso MD Unavailable [phone] Eva Monreal MD Primary Care Provider [phone] Aydee Flores [facility] Unavailable Theresa Sweet Unavailable Unavailable Daniel Reed Unavailable [email or web address] Magalis Fong MD Unavailable [phone]- [phone] Marilu Anderson Unavailable [phone] Micaela Cobb CNP Unavailable Encounter Details Date Type Department Care Team (Late st Contact Info) Description 04/18/2025 Orders Only [facility] [place] [address] [place] [address] 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 on file documented as of this encounter Plan of Treatment Upcoming Encounters Date Type Department Care Team (Late st Contact Info) Description 10/31/2024 Procedure Pass Echo Lab [address] [place] [address] 05/09/2025 1:40 PM EDT Appointment [facility] [address] [place] [address] Marilu Anderson MBBS [address] [place] [address] 05/09/2025 2:30 PM EDT Office Visit [facility] [address] [place] [address] Marilu Anderson MBBS [address] [place] [address] 05/09/2025 3:40 PM EDT Infusion [facility] at [address] [address] Marilu Anderson MBBS [address] [place] [address] 05/27/2025 10:30 AM EDT Office Visit [facility] [address] [place] [address] 1[address] [place] [address] Lily Cuevas MD [address] [place] [address] [email or web address] 05/30/2025 3:00 PM EDT Appointment Echo Lab [address] [place] [address] Jose Vela DO [address] [facility] [address] [place] [address] 09/11/2025 1:00 PM EST Office Visit [facility] [address] [place] [address] 3rd Floor, [address] [place] [address] Segun Finnegan MD [address] [place] [address] documented as of this encounter Results * (ABNORMAL) Comprehensive metabolic panel (04/22/2025 2:51 PM EDT) SODIUM 136 133 - 146 mmol/L [facility] POTASSIUM 4.7 3.3 - 5.1 mmol/L [facility] CHLORIDE 98 96 - 108 mmol/L [facility] CO2 25 21 - 35 mmol/L [facility] BUN 26(H) 6 - 19 mg/dL [facility] CREATININE 1.50 0.5 - 1.5 mg/dL [facility] GLUCOSE 99 70 - 99 mg/dL [facility] ALBUMIN 3.8(L) 3.9 - 4.8 g/dL [facility] TOTAL PROTEIN 6.2(L) 6.5 - 8.0 g/dL [facility] CALCIUM 9.2 8.4 - 10.3 mg/dL [facility] ALKALINE PHOSPHATASE 158(H) 39 - 117 U/L [facility] TOTAL BILIRUBIN 0.4 0.0 - 1.2 mg/dL [facility] AST 19 0 - 37 U/L [facility] ALT 11 0 - 40 U/L [facility] GLOBULIN 2.4 1 - 4.8 g/dL [facility] EGFR 37(L) >59 mL/min/1.7 3m2 [facility] Comment:Estimated glomerular filtration rate calculated using the CKD-EPI refit equation. ANION GAP 18 10 - 20 mmol/L [facility] Blood 04/22/2025 2:51 PM EDT 04/22/2025 2:58 PM EDT us Marilu R[facility] BLOOD ORDERABLES Final R esult [facility] [address] [place] [address] * (ABNORMAL) CBC and differential (04/22/2025 2:51 PM EDT) WBC 7.22 4.00 - 11.00 K/uL [facility] RBC 2.50(L) 4.00 - 5.20 M/uL [facility] HGB 8.1(L) 12.0 - 16.0 g/dL [facility] HCT 24.9(L) 36.0 - 46.0 % [facility] PLT 177 150 - 450 K/uL [facility] MCV 99.6 80.0 - 100.0 fL [facility] MCH 32.4(H) 27.0 - 31.0 pg [facility] MCHC 32.5 32.0 - 36.0 g/dL [facility] RDW 18.0(H) 11.5 - 14.5 % [facility] MPV 9.9 8.4 - 12.0 fL [facility] NRBC 0.40(H) 0.00 /100 WBCs [facility] ABSOLUTE NRBC 0.03(H) 0.00 K/uL [facility] DIFF METHOD Auto [facility] NEUTS 59.5 48.0 - 76.0 % [facility] LYMPHS 23.3 18.0 - 41.0 % [facility] MONOS 9.4 4.0 - 11.0 % [facility] EOS 7.1(H) 0.0 - 5.0 % [facility] BASOS 0.4 0.0 - 1.5 % [facility] Granulocytes, immature (%) 0.3 0.0 - 0.9 % [facility] ABSOLUTE NEUTS 4.30 1.92 - 7.60 K/uL [facility] ABSOLUTE LYMPHS 1.68 0.72 - 4.10 K/uL [facility] ABSOLUTE MONOS 0.68 0.16 - 1.10 K/uL [facility] ABSOLUTE EOS 0.51(H) 0.00 - 0.50 K/uL [facility] ABSOLUTE BASOS 0.03 0.00 - 0.15 K/uL [facility] Granulocytes, immature 0.02 0.00 - 0.09 K/uL [facility] Blood 04/22/2025 2:51 PM EDT 04/22/2025 2:58 PM EDT us Marilu [facility] BLOOD ORDERABLES Final R esult [address] [address] documented in this encounter Visit Diagnoses Diagnosis Acute myeloid leukemia in remission- Primary documented in this encounter Care Teams Filter Tank Tender Helper Head Relationship Specialty Start Date End Date Eva Monreal MD [address] [place] [address] [email or web address] PCP - General Internal Medicine 04/03/19 De Enciso MD [address] [place] [address] Historical LMR Provider 01/16/15 Aydee Flores [address] [address] [email or web address] Outbound Sales Consultant Oncology 06/09/21 Theresa Sweet [address] [place] [address] 10/06/22 Daniel Reed [address] [place] [address] [email or web address] Public Health Informatician 06/21/21 Magalis Fong MD [address] [place] [address] Gastroenterology 09/12/23 Marilu Anderson MBBS [address] [place] [address] [email or web address] Primary Oncologist Medical Oncology 01/09/25 Micaela Cobb CNP [address] [place] [address] [email or web address] Nurse Practitioner Nurse Practitioner 04/05/25 documented as of this encounter Additional Source Comments The information contained in this document represents components of the legal health record. It is not the complete legal health record.[facility]
--- OUTSIDE RECORDS SUMMARY | 2025-05-01 00:33 | XMS_ITS | Encounter Summary ---
Author Organization [facility] Address [address] [place] [address] Care Team Providers Care Buffing Machine Operator Semiautomatic Name Role Phone Eva Monreal MD Primary Care Provider Encounter Details Date Type Department Care Team (Late st Contact Info) Description 04/08/2025 Telephone Gastroenterology - [address] [place] [phone] Magalis Fong MD [address] [facility] [address] [place] [address] Social History Tobacco Use Types Packs/Day Years Used Date Smoking Tobacco: Never Assessed Comments Unknown Sex and Gender Information Value Date Recorded Sex Assigned at Female 07/04/2024 2:08 PM EDT Legal Sex Female 8:29 PM EST Gender Identity Female 07/04/2024 2:08 PM EDT Sexual Orientation Straight 07/04/2024 2: 08 PM EDT documented as of this encounter Progress Notes * Alejandra Small - 04/29/2025 12:20 PM EDT Pt is calling back * Mariella Castellano MA - 04/26/2025 1:56 PM EDT Lmom with 09 advise * Mariella Castellano MA - 04/26/2025 10:43 AM EDT Spoke to pt, she still waking up in the morning with feces on her. She stated she took 4 Imodium yesterday and still had loose bowels today. Pepto not helping either. I booked an appt for 05/14 with 09. Ok to continue taking Imodium, until then? * Alejandra Small - 04/25/2025 4:13 PM EDT Pt states the imodium and pepto bismol is not working for her fecal incontinence * Ariana Schmitt MA - 04/23/2025 1:00 PM EDT Orders pended for signature * Ariana Schmitt MA - 04/23/2025 8:45 AM EDT I have spoke with patient. She has been holding off on the Linzess however is still having fecal incontinence and it seems to occur most often at night time. She had tried immodium but that didn't seem to work. She will try with Pepto. She states that she also spoke with her MD at [facility] and she suggested a possible GI work up. Patient is wondering if that is reasonable at this time. Possibly stool samples. She did have a CT in 02/2025 which showed constipation. Please advise. * Klaudia Perez - 04/17/2025 4:02 PM EDT Patient calling to discuss her fecal incontinence, she has stopped the Linzess and it is still happening. Patient is wondering if she should take budesonide or imodium? Please advise. * Oanh Coker MA - 04/09/2025 1:44 PM EDT PT is advise * Oanh Coker MA - 04/09/2025 9:23 AM EDT Spoke with the patient she states the last week or so she is having watery stools with also having incontinence, I dis ask if she is taking the Linzess still, she said yes I did advise her to stop this for a couple of days or until she starts to have formed stools as this helps with constipation. Be on the BRAT diet for now. I asked her if she has tried imodium to help with this issue she said she has and it is helping her a little bit, She did also state she has budesonide 3mgs 3 capsules daily as well but I do not see this on her medication list she wants to know if she should restart this medication, please review and advise * Claribel Jacob - 04/08/2025 2:58 PM EDT Pt called stating that she's had very watery stools and fecal incontinence. Pt wondered if she should continue taking budesinide? Also would like to be seen but soonest appt is in June. 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, [facility] V28) 1 Occurrences starting 04/23/2025 until 04/23/2026 Clostridium difficile toxin Microbiology Routine Full incontinence of feces 1 Occurrences starting 04/23/2025 until 04/23/2026 XR Abdomen 1 View Imaging Routine Slow transit constipation Expected: 04/23/2025, Expires: 04/23/2026 documented as of this encounter Visit Diagnoses Diagnosis Slow transit constipation- Primary Full incontinence of feces Bacterial intestinal infection, unspecified 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
--- OUTSIDE RECORDS SUMMARY | 2025-05-01 00:33 | XMS_ITS | Encounter Summary ---
Author Organization [facility] Address [address] [facility] [address] [place] [address] Phone Care Team Providers Care Head Banquet Waiter/Waitress Name Role Phone De Enciso MD Unavailable [phone] Eva Monreal MD Primary Care Provider [phone] Aydee Flores [facility] Unavailable Theresa Sweet Unavailable Unavailable Daniel Reed Unavailable Itz [email or web address] Magalis Fong MD Unavailable [phone] Marilu Anderson Unavailable [phone] Micaela Cobb CNP Unavailable Encounter Details Date Type Department Care Team (Late st Contact Info) Description 06/07/2024 Procedure Pass [facility] Cardiovascular And Interventional Radiology [address] [place] [address] Social History Tobacco Use Types Packs/Day Years [...] as food, clothing, or medical care? No 06/07/2024 In the past 12 months have y ou been in a relationship with a person who hurts, threatens, or tries to control you? No 06/07/2024 Are you denied basic needs s uch as food, clothing, or medical care? No 06/07/2024 In the past 12 months have y ou been in a relationship with a person who hurts, threatens, or tries to control you? 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 Wish to be (Past 1 Month) No 06/07/2024 4:56 AM EDT Tiburcio Eller RN 2. Non-Specific Active Suici jess Thoughts (Past 1 Month) No 06/07/2024 4:[address] fortunato Eller RN 6. Suicidal Behavior (Lifetime) No 4:56 AM EDT Ernesto Eller, GREGORIA documented as of this encounter Plan of Treatment Upcoming Encounters Date Type Department Care Team (Late st Contact Info) Description 10/31/2024 Procedure Pass [facility] [address] [place] [address] 05/09/2025 1:40 PM EDT Appointment [facility] [address] [place] [address] Marilu Anderson MBBS [address] [place] [address] 05/09/2025 2:30 PM EDT Office Visit [facility] at [address] [address] Marilu Anderson [address] [address] 05/09/2025 3:40 PM EDT Infusion [facility] at [address] [address] Marilu Anderson [address] [address] 05/27/2025 10:30 AM EDT Office Visit [facility] [address] [place] [address] Lily Cuevas MD [address] [place] [address] [email or web address] 05/30/2025 3:00 PM EDT Appointment Echo Lab [address] [place] [address] Jose Vela DO [address] [place] [address] 09/11/2025 1:00 PM EST Office Visit [facility] [address] [place] [address] 3rd [facility], [address] [address] Segun Finnegan MD [address] [place] [address] documented as of this encounter Visit Diagnoses Not on filedocumented in this encounter Additional Health Concerns Infection Onset Date Last Indicated Resolved Time CoV-Risk Comment:Per note documentation 06/06/2024 06/06/2024 1:30 PM EDT documented as of this encounter Care Teams Head Banquet Waiter/Waitress Relationship Specialty Start Date End Date Eva Monreal MD [address] [place] [address] [address] [place] [address] [email or web address] PCP - General Internal Medicine 04/03/19 De Enciso MD [address] [place] [address] Historical LMR Provider 01/16/15 Aydee Flores, [address] [address] [email or web address] [facility] Diesel Service Technician Oncology 06/09/21 Theresa Sweet [address] [place] [address] 10/06/22 Daniel Reed [address] [place], [place] Itz@[email or web address] Mine Engineering Manager 06/21/21 Magalis Fong MD [address] [place] [address] Gastroenterology 09/12/23 Marilu Anderson MBBS [address] [place] [address] [email or web address] Primary Oncologist Medical Oncology 01/09/25 Micaela Cobb CNP [address] [place] [address] Nurse Practitioner Nurse Practitioner 04/05/25 documented as of this encounter Additional Source Comments The information contained in this document represents components of the legal health record. It is not the complete legal health record.[facility]
--- OUTSIDE RECORDS SUMMARY | 2025-05-01 00:33 | XMS_ITS | Encounter Summary ---
Author Organization [facility] Address [address] [place] [address] Care Team Providers Care Telephone Appointment Clerk Name Role Phone Eva Monreal Primary Care Provider [phone] Reason for Visit * Reason Onset Date Comments Appointment Rescheduling 02/15/2022 Encounter Details Date Type Department Care Team ([facility] Contact Info) Description 02/15/2022 Telephone [facility] Central Scheduling Department [address] [place] [address] Telephone Intake, Staff Appointment Rescheduling Social History [...] on filedocumented in this encounter Care Teams Telephone Appointment Clerk Relationship Specialty Start Date End Date Eva Monreal [address] [place] [address] PCP - General Internal Medicine 12/12/20 documented as of this encounter
--- OUTSIDE RECORDS SUMMARY | 2025-05-01 00:34 | XMS_ITS | Encounter Summary ---
Author Organization [facility] Address [address] [facility] [address] [place] [address] Phone Care Team Providers Care Ballast Inspector Name Role Phone Erwin Gavin MD Primary Care Provider De Jaime MD Unavailable [phone] Brittany Estrella Unavailable Brittany_[email or web address]. Asher Jeffery MD Unavailable [phone] Cheryl Hernandez PHYSIOLOGIST Unavailable + [phone] Eva Monreal MD Primary Care Provider [phone] Aydee Flores PHYSIOLOGIST Unavailable Theresa Sweet Unavailable Unavailable Daniel Reed Unavailable Itz [email or web address] Magalis Fong MD Unavailable + [phone] Marilu Anderson Unavailable [phone] Micaela Cobb CNP Unavailable Encounter Details Date Type Department Care Team (Late st Contact Info) Description 10/16/2016 EpicOnHand Encounter Division of Hematologic Oncology, [facility] [place] [address] [facility], 8th [place] [address] Ro Estrada NP [address] [place] [address] [email or web address] Social History Tobacco Use Types Packs/Day Years Used Date Smoking Tobacco: Never Alcohol Use Standard Drinks/Week Comments Yes 0 (1 standard drink = 0.6 oz pure alcohol) Glass of wine or occasional mixed drink 3X/month Comments Unknown Sex and Gender Information Value Date Recorded Sex Assigned at Female 08/30/2022 11:52 AM EST Legal Sex Female 7:38 PM EST Gender Identity Female 08/30/2022 11:52 AM EST Sexual Orientation Straight 03/02/2024 9: 21 AM EDT documented as of this encounter Plan of Treatment Upcoming Encounters Date Type Department Care Team (Late st Contact Info) Description 10/31/2024 Procedure Pass Echo Lab [address] [address] 05/09/2025 1:40 PM EDT Appointment [facility] [address] [place] [address] Marilu Anderson MBBS [address] [place] [address] 05/09/2025 2:30 PM EDT Office Visit [facility] at [address] [address] Marilu Anderson MBBS [address] [place] [address] 05/09/2025 3:40 PM EDT Infusion [facility] [place] at [address] [address] Marilu Anderson MBBS [address] [place] [address] 05/27/2025 10:30 AM EDT Office Visit [facility] [address] [address] Lily Cuevas MD [address] [place] [address] [email or web address] 05/30/2025 3:00 PM EDT Appointment Echo Lab [address] [place] [address] Jose Vela DO [address] [facility] [address] [place] [address] 09/11/2025 1:00 PM EST Office Visit [facility] [address] 3rd Floor, [address] [place] [address] Segun Finnegan MD [address] [place] [address] [email or web address] documented as of this encounter Visit Diagnoses Not on filedocumented in this encounter Additional Health Concerns Infection Onset Date Last Indicated Resolved Time CoV-Risk Comment:Per note documentation 06/06/2024 06/06/2024 1:30 PM EDT documented as of this encounter Care Teams Ballast Inspector Relationship Specialty Start Date End Date Erwin Gavin MD PCP - General 03/05/14 04/02/19 Eva Monreal MD [address] [place] [address] [email or web address] PCP - General Internal Medicine 04/03/19 De Enciso MD [address] [place] [address] Historical LMR Provider 01/16/15 Brittany Estrella [address] [place] [address] [email or web address] Clinical Coordinator Resource, Ancillary 02/10/15 06/08/21 Asher Toledo MD [address] [place] [address] [email or web address] Referring Physician Hematology 12/03/15 11/25/21 Cheryl Hernandez, [address] [address] [email or web address] Calender Worker Helper Oncology 12/05/15 06/08/21 Aydee Flores, [address] [address] [email or web address]. [facility] Calender Worker Helper Oncology 06/09/21 Theresa Sweet [address] [place] [address] 10/06/22 Daniel Reed [address] [place] [address] [email or web address] Dish Machine Operator 06/21/21 Magalis Fong MD [address] [place] [address] Gastroenterology 09/12/23 Marilu Anderson MBBS [address] [place] [address] [email or web address] Primary Oncologist Medical Oncology 01/09/25 Micaela Cobb CNP [address] [place] [address] Nurse Practitioner Nurse Practitioner 04/05/25 documented as of this encounter Additional Source Comments The information contained in this document represents components of the legal health record. It is not the complete legal health record.[facility]
--- OUTSIDE RECORDS SUMMARY | 2025-05-01 00:34 | XMS_ITS | Encounter Summary ---
Author Organization [facility] Address [address] [place] [address] Phone Care Team Providers Care Physician Office Assistant Name Role Phone De Enciso MD Unavailable [phone] Eva Monreal MD Primary Care Provider [phone] Aydee Flores [facility] Unavailable Theresa Sweet Unavailable Unavailable Daniel Reed Unavailable Itz @[email or web address] Magalis Fong MD Unavailable [phone] Marilu Anderson Unavailable [phone] Micaela Cobb CNP Unavailable Encounter Details Date Type Department Care Team (Late st Contact Info) Description 02/21/2025 Telephone [facility] [address] [place] [address] 3rd Floor, [address] [place] [address] Segun Finnegan MD [address] [place] [address] Social History Tobacco Use Types Packs/Day Years [...] 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 Patient Calls (Newest Message First) View All Conversations on this Encounter Segun Finnegan MD You10 hours ago (10:16 PM) PM It should be ok to use lamotrigine. You routed conversation to Segun Finnegan MD17 hours ago (3:26 PM) Belkys Cornejo routed conversation to You17 hours ago (3:24 PM) * Belkys Cornejo - 02/21/2025 3:23 PM EDT Pts nuerologist is considering putting patient on lamopridine but we just need the okay by the design quality engineer prior to taking it. documented in this encounter Plan of Treatment Upcoming Encounters Date Type Department Care Team (Late st Contact Info) Description 10/31/2024 Procedure Pass Echo Lab [address] [place] [address] 05/09/2025 1:40 PM EDT Appointment [facility] [address] [place] [address] Marilu Anderson MBBS [address] [place] [address] 05/09/2025 2:30 PM EDT Office [facility] at [address] [address] Marilu Anderson MBBS [address] [place] [address] 05/09/2025 3:[address] [facility] at [address] [address] Marilu Anderson MBBS [address] [place] [address] 05/27/2025 10:30 AM EDT Office Visit [facility] [address] [place] [address] Lily Cuevas MD [address] [place] [address] [email or web address] 05/30/2025 3:00 PM EDT Appointment Echo Lab [address] [place] [address] Jose Vela DO [address] [facility] [address] [place] [address] 09/11/2025 1:00 PM EST Office Visit [facility] [address] [place] [address] 3rd Floor, [address] [place] [address] Segun Finnegan MD [address] [place] [address] [email or web address] documented as of this encounter Visit Diagnoses Not on filedocumented in this encounter Care Teams Physician Office Assistant Relationship Specialty Start Date End Date Eva Monreal MD [address] [place] [address] 102 [place] [address] [email or web address] PCP - General Internal Medicine 04/03/19 De Enciso MD [address] [place] [address] Historical LMR Provider 01/16/15 Adyee Flores, [address] [address] [email or web address]. [facility] Cement Gun Operator Oncology 06/09/21 Theresa Sweet [address] [place] [address] 10/06/22 Daniel Reed [address] [place] [address] [email or web address] Agricultural Equipment Operator 06/21/21 Magalis Fong MD [address] [place] [address] Gastroenterology 09/12/23 Marilu Anderson MBBS 30 [place] [address] [email or web address] Primary Oncologist Medical Oncology 01/09/25 Micaela Cobb CNP [address] [place] [address] [email or web address] Nurse Practitioner Nurse Practitioner 04/05/25 documented as of this encounter Additional Source Comments The information contained in this document represents components of the legal health record. It is not the complete legal health record.[facility]
--- OUTSIDE RECORDS SUMMARY | 2025-05-01 00:34 | XMS_ITS | Encounter Summary ---
Author Organization [facility] Address [address] [facility] [address] [place] [address] Phone Care Team Providers Care Tug Boat Engineer Name Role Phone Ewrin Gavin MD Primary Care Provider De Jaime MD Unavailable [phone] Brittany Estrella Unavailable Brittany_[email or web address]. Asher Jeffery MD Unavailable [phone] Cheryl Hernandez VEHICLE REFINISHER Unavailable + [phone] Eva Monreal MD Primary Care Provider [phone] Aydee Flores VEHICLE REFINISHER Unavailable Theresa Sweet Unavailable Unavailable Daniel Reed Unavailable Itz @[email or web address] Magalis Fong MD Unavailable + [phone] Marilu Anderson Unavailable [phone] Micaela Cobb CNP Unavailable Encounter Details Date Type Department Care Team (Late st Contact Info) Description 06/15/2017 EpicOnHand Encounter Division of Hematologic Oncology, [facility] [place] [address] [facility], 8th [place] [address] Ro Estrada NP [address] [place] [address] [email or web address] Social History Tobacco Use Types Packs/Day Years [...] Info) Description 10/31/2024 Procedure Pass Echo Lab [address] [address] 05/09/2025 1:40 PM EDT Appointment [facility] [address] [place] [address] Marilu Anderson MBBS [address] [place] [address] 05/09/2025 2:30 PM EDT Office Visit [facility] at [address] [address] Marilu Anderson MBBS [address] [place] [address] 05/09/2025 3:40 PM EDT Infusion [facility] at [address] [address] Marilu Anderson MBBS [address] [place] [address] 05/27/2025 10:30 AM EDT Office Visit [facility] [address] [address] Lily Cuevas MD [address] [place] [address] [email or web address] 05/30/2025 3:00 PM EDT Appointment Echo Lab [address] [place] [address] Jose Vela DO 22 [facility] [address] [place] [address] 09/11/2025 1:00 PM EST Office Visit [facility] [address] 3rd [facility], [address] [place] [address] Segun Finnegan MD [address] [place] [address] [email or web address] documented as of this encounter Visit Diagnoses Not on filedocumented in this encounter Additional Health Concerns Infection Onset Date Last Indicated Resolved Time CoV-Risk Comment:Per note documentation 06/06/2024 06/06/2024 1:30 PM EDT documented as of this encounter Care Teams Tug Boat Engineer Relationship Specialty Start Date End Date Erwin Gavin MD PCP - General 03/05/14 04/02/19 Eva Monreal MD [address] [place] [address] [email or web address] PCP - General Internal Medicine 04/03/19 De Enciso MD [address] [place] [address] Historical LMR Provider 01/16/15 Brittany Estrella [address] [place] [address] [email or web address] Clinical Coordinator Resource, Ancillary 02/10/15 06/08/21 Asher Toledo MD [address] [place] [address] [email or web address] Referring Physician Hematology 12/03/15 11/25/21 Cheryl Hernandez, [address] [address] [email or web address] Beer Still Runner Compounder Oncology 12/05/15 06/08/21 Aydee Flores, [address] [address] [email or web address]. [facility] Beer Still Runner Compounder Oncology 06/09/21 Theresa Sweet [address] [place] [address] 10/06/22 Daniel Reed [address] [place] [address] [email or web address] Accounting Tutor 06/21/21 Magalis Fong MD [address] [place] [address] Gastroenterology 09/12/23 Marilu Anderson MBBS [address] [place] [address] [email or web address] Primary Oncologist Medical Oncology 01/09/25 Micaela Cobb CNP [address] [place] [address] [email or web address] Nurse Practitioner Nurse Practitioner 04/05/25 documented as of this encounter Additional Source Comments The information contained in this document represents components of the legal health record. It is not the complete legal health record.[facility]
--- OUTSIDE RECORDS SUMMARY | 2025-05-01 00:34 | XMS_ITS | Encounter Summary ---
Author Organization [facility] Address [address] [place] [address] Phone Care Team Providers Care Candy Depositing Machine Operator Name Role Phone De Enciso MD Unavailable [phone] Eva Monreal MD Primary Care Provider [phone] Aydee Flores [facility] Unavailable Theresa Sweet Unavailable Unavailable Daniel Reed Unavailable Itz [email or web address] Magalis Fong MD Unavailable [phone] Marilu Anderson Unavailable [phone] Micaela Cobb CNP Unavailable Encounter Details Date Type Department Care Team (Late st Contact Info) Description 02/21/2025 Transcribe [facility] [address] [place] [address] 3rd Floor, [address] [place] [address] Segun Finnegan MD [address] [place] [address] [email or web address] Social History Tobacco Use Types Packs/Day Years [...] 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 file Not on file documented as of this encounter Plan of Treatment Upcoming Encounters Date Type Department Care Team (Late st Contact Info) Description 10/31/2024 Procedure Pass Echo Lab [place] [place] [address] 05/09/2025 1:40 PM EDT Appointment [facility] [address] [place] [address] Marilu Anderson MBBS [address] [place] [address] 05/09/2025 2:30 PM EDT Office Visit [facility] 30 [place] [address] Marilu Anderson MBBS [address] [place] [address] 05/09/2025 3:40 PM EDT Infusion [facility] [place] [address] [place] [address] Marilu Anderson MBBS [address] [place] [address] 05/27/2025 10:30 AM EDT Office Visit [facility] [address] [address] Lily Cuevas MD [address] [place] [address] [email or web address] 05/30/2025 3:00 PM EDT Appointment Echo Lab [address] [address] Jose Vela DO [address] [place] [address] [address] [place] [address] 09/11/2025 1:00 PM EST Office Visit [facility] [address] [place] [address] 3rd Floor, [address] [place] [address] Segun Finnegan MD [address] [place] [address] documented as of this encounter Visit Diagnoses Not on filedocumented in this encounter Care Teams Candy Depositing Machine Operator Relationship Specialty Start Date End Date Eva Monreal MD [address] [place] [address] [email or web address] PCP - General Internal Medicine 04/03/19 De Enciso MD [address] [place] [address] Historical LMR Provider 01/16/15 Aydee Flores, [facility] 35 [place] [address] [email or web address] [facility] Machinist Apprentice Oncology 06/09/21 Theresa Sweet 35 [place] [address] 10/06/22 Daniel Reed 35 [place] [address] [email or web address] National Park Ranger 06/21/21 Magalis Fong MD [address] [place] [address] Gastroenterology 09/12/23 Marilu Anderson MBBS [address] [place] [address] [email or web address] Primary Oncologist Medical Oncology 01/09/25 Micaela Cobb CNP [address] [place] [address] Nurse Practitioner Nurse Practitioner 04/05/25 documented as of this encounter Additional Source Comments The information contained in this document represents components of the legal health record. It is not the complete legal health record.[facility]
--- OUTSIDE RECORDS SUMMARY | 2025-05-01 00:34 | XMS_ITS | Encounter Summary ---
Author Organization [facility] Address [address] [facility] [address] [place] [address] Phone Care Team Providers Care Associate Technician Name Role Phone Erwin Gavin MD Primary Care Provider De Jaime MD Unavailable [phone] Brittany Estrella Unavailable [email or web address]. Asher Jeffery MD Unavailable [phone] Cheryl Hernandez ASPHALT SCREED OPERATOR Unavailable + [phone] Eva Monreal MD Primary Care Provider [phone] Aydee Flores ASPHALT SCREED OPERATOR Unavailable Theresa Sweet Unavailable Unavailable Daniel Reed Unavailable [email or web address] Magalis Fong MD Unavailable + [phone] Marilu Anderson Unavailable [phone] Micaela Cobb CNP Unavailable Encounter Details Date Type Department Care Team (Late st Contact Info) Description 09/07/2017 EpicOnHand Encounter Division of Hematologic Oncology, [facility] [place] [address] [facility], 8th [place] [address] Ro Estrada NP [address] [place] [address] [email or web address] Social History Tobacco Use Types [...] Info) Description 10/31/2024 Procedure Pass Echo Lab [address] [address] 05/09/2025 1:40 PM EDT Appointment [facility] [address] [place] [address] Marilu Anderson MBBS [address] [place] [address] 05/09/2025 2:30 PM EDT Office Visit [facility] at [address] [address] Marilu Anderson MBBS [address] [place] [address] 05/09/2025 3:40 PM EDT Infusion [facility] at [address] [address] Marilu Anderson MBBS [address] [place] [address] 05/27/2025 10:30 AM EDT Office Visit [facility] [address] [address] Lily Cuevas MD 221 [place] [address] [email or web address] 05/30/2025 3:00 PM EDT Appointment Echo Lab [address] [place] [address] Jose Vela DO 22 [facility] [address] [place] [address] 09/11/2025 1:00 PM EST Office Visit [facility] [address] [facility], [address] [place] [address] Segun Finnegan MD [address] [place] [address] [email or web address] documented as of this encounter Visit Diagnoses Not on filedocumented in this encounter Additional Health Concerns Infection Onset Date Last Indicated Resolved Time CoV-Risk Comment:Per note documentation 06/06/2024 06/06/2024 1:30 PM EDT documented as of this encounter Care Teams Associate Technician Relationship Specialty Start Date End Date Erwin Gavin MD PCP - General 03/05/14 04/02/19 Eva Monreal MD [address] [place] [address] [email or web address] PCP - General Internal Medicine 04/03/19 De Enciso MD [address] [place] [address] Historical LMR Provider 01/16/15 Brittany Estrella [address] [place] [address] [email or web address] Clinical Coordinator Resource, Ancillary 02/10/15 06/08/21 Asher Toledo MD [address] [place] [address] [email or web address] Referring Physician Hematology 12/03/15 11/25/21 Cheryl Hernandez, [address] [address] [email or web address] Sack Cleaning Hand Oncology 12/05/15 06/08/21 Aydee Flores, [address] [address] [email or web address] Sack Cleaning Hand Oncology 06/09/21 Theresa Sweet [address] [place] [address] 10/06/22 Daniel Reed [address] [place] [address] [email or web address] Surfacing Technician 06/21/21 Magalis Fong MD [address] [place] [address] Gastroenterology 09/12/23 Marilu Anderson MBBS [address] [place] [address] [email or web address] Primary Oncologist Medical Oncology 01/09/25 Micaela Cobb CNP [address] [place] [address] [email or web address] Nurse Practitioner Nurse Practitioner 04/05/25 documented as of this encounter Additional Source Comments The information contained in this document represents components of the legal health record. It is not the complete legal health record.[facility]
--- OUTSIDE RECORDS SUMMARY | 2025-05-01 00:34 | XMS_ITS | Encounter Summary ---
Author Organization [facility] Address [address] [address] Phone Care Team Providers Care Acute Care Physical Therapist Name Role Phone Erwin Gavin MD Primary Care Provider De Jaime MD Unavailable [phone] Brittany Estrella Unavailable Brittany_[email or web address] Asher Jeffery MD Unavailable [phone] Cheryl Hernandez TORQUE TESTER Unavailable [phone] Eva Monreal MD Primary Care Provider [phone] Aydee Flores TORQUE TESTER Unavailable Theresa Sweet Unavailable Unavailable Daniel Reed Unavailable Itz [email or web address] Magalis Fong MD Unavailable + [phone] Marilu Anderson Unavailable [phone] Micaela Cobb CNP Unavailable Reason for Referral * Physical Therapy (Routine) - Closed Specialty Diagnoses / Procedures Referred By Jada t Referred To Contact Physical Therapy Diagnoses Encounter for rehabilitation fecal incontinence Procedures physical therapy System, Provider Not In, [facility] [address] [place] [address] Phone: tel: Referral ID Status Reason Start Date Expiration Date Visits Re quested Visits Authorized [id number] Closed 02/17/2018 02/17/2019 99 99 Encounter Details Date Type Department Care Team (Latest Contact Info) Description 02/17/2018 Transcribe Orders [facility] [address] [place] [address] Gloria Shepherd PA [address] [address] Encounter for rehabilitation (Primary Dx) Social History Tobacco Use Types [...] Info) Description 10/31/2024 Procedure Pass Echo Lab [place] [address] [place] [address] 05/09/2025 1:40 PM EDT Appointment [facility] [address] [place] [address] Marilu Anderson MBBS [address] [place] [address] 05/09/2025 2:30 PM EDT Office Visit [facility] [address] [place] [address] Marilu Anderson MBBS 30 [place] [address] 05/09/2025 3:40 PM EDT Infusion [facility] [address] [place] [address] Marilu Anderson MBBS 30 [place] [address] 05/27/2025 10:30 AM EDT Office Visit [facility] 221 [facility] 1[address] [place] [address] Lily Cuevas MD 221 [place] [address] [email or web address] 05/30/2025 3:00 PM EDT Appointment Echo Lab [address] [place] [address] Jose Vela DO 22 [facility] [address] [place] [address] 09/11/2025 1:00 PM EST Office Visit [facility] [address] [place] [address] 3rd Floor, [address] [place] [address] Segun Finnegan MD [address] [place] [address] documented as of this encounter Procedures Procedure Name Priority Date/Time Associated Diagnosis Comments AMB REFERRAL TO [facility] PHYSICAL THERAPY Routine 03/02/2018 12:17 PM EDT Encounter for rehabilitation documented in this encounter Results * Ambulatory referral to [facility] Physical Therapy (03/02/2018 12:17 PM EDT) us Provider Not In System PhD AMB [facility] REFERRALS Fin al Result documented in this encounter Visit Diagnoses Diagnosis Encounter for rehabilitation- Primary documented in this encounter Additional Health Concerns Infection Onset Date Last Indicated Resolved Time CoV-Risk Comment:Per note documentation 06/06/2024 06/06/2024 1:30 PM EDT documented as of this encounter Care Teams Acute Care Physical Therapist Relationship Specialty Start Date End Date Gavin, Erwin H, MD PCP - General 03/05/14 04/02/19 Eva Monreal MD [address] [place] [address] [email or web address] PCP - General Internal Medicine 04/03/19 De Enciso MD [address] [place] [address] Historical LMR Provider 01/16/15 Brittany Estrella 450 [place] [address] [email or web address] Clinical Coordinator Resource, Ancillary 02/10/15 06/08/21 Asher Toledo MD [address] [place] [address] [email or web address] Referring Physician Hematology 12/03/15 11/25/21 Cheryl Hernandez, [address] [address] [email or web address] Musculoskeletal Physician Oncology 12/05/15 06/08/21 Aydee Flores, [address] [address] [email or web address]. [facility] Musculoskeletal Physician Oncology 06/09/21 Theresa Sweet 35 [place] [address] 10/06/22 Daniel Reed [address] [place] [address] [email or web address] Environmental Compliance Engineer 06/21/21 Magails Fong MD [address] [place] [address] Gastroenterology 09/12/23 Marilu Anderson MBBS [address] [place] [address] [email or web address] Primary Oncologist Medical Oncology 01/09/25 Micaela Cobb CNP [address] [place] [address] [email or web address] Nurse Practitioner Nurse Practitioner 04/05/25 documented as of this encounter Additional Source Comments The information contained in this document represents components of the legal health record. It is not the complete legal health record.[facility]
--- OUTSIDE RECORDS SUMMARY | 2025-05-01 00:34 | XMS_ITS | Encounter Summary ---
Author Organization [facility] Address [address] [facility] [address] [place] [address] Phone Care Team Providers Care Rent And Housing Investigator Name Role Phone De Enciso MD Unavailable [phone] Eva Monreal MD Primary Care Provider [phone] Aydee Flores [facility] Unavailable Theresa Sweet Unavailable Unavailable Daniel Reed Unavailable Itz [email or web address] Magalis Fong MD Unavailable [phone] Marilu Anderson Unavailable [phone] Micaela Cobb CNP Unavailable Reason for Visit * Reason Comments Medication Refill Encounter Details Date Type Department Care Team (Late st Contact Info) Description 11/20/2023 Refill Oral Medicine, [facility] [place] [address] [facility], 11th [place] [address] Dee Cordero [address] [place] [address] [email or web address] Medication Refill Social History Tobacco Use Types Packs/Day Years [...] with a working camera? 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 Not on file Not on file Not on file documented as of this encounter Plan of Treatment Upcoming Encounters Date Type Department Care Team (Late st Contact Info) Description 10/31/2024 Procedure Pass Echo Lab [address] [place] [address] 05/09/2025 1:40 PM EDT Appointment [facility] [address] [place] [address] Marilu Anderson MBBS [address] [place] [address] 05/09/2025 2:30 PM EDT Office Visit [facility] at [address] [address] Marilu Anderson MBBS [address] [place] [address] 05/09/2025 3:40 PM EDT Infusion [facility] at [address] [address] Marilu Anderson MBBS [address] [place] [address] 05/27/2025 10:30 AM EDT Office Visit [facility] 221 [facility] 1st [place] [address] Lily Cuevas MD 221 [place] [address] [email or web address] 05/30/2025 3:00 PM EDT Appointment Echo Lab [address] [place] [address] Jose Vela DO 22 [facility] [address] [place] [address] 09/11/2025 1:00 PM EST Office Visit [facility] [address] [place] [address] 3rd [facility], [address] [place] [address] Segun Finnegan MD [address] [place] [address] [email or web address] documented as of this encounter Visit Diagnoses Not on filedocumented in this encounter Additional Health Concerns Infection Onset Date Last Indicated Resolved Time CoV-Risk Comment:Per note documentation 06/06/2024 06/06/2024 1:30 PM EDT documented as of this encounter Care Teams Rent And Housing Investigator Relationship Specialty Start Date End Date Eva Monreal MD [address] [place] [address] [email or web address] PCP - General Internal Medicine 04/03/19 De Enciso MD [address] [place] [address] Historical LMR Provider 01/16/15 Aydee Flores, [address] [address] [email or web address] [facility] Community Organization Director Oncology 06/09/21 Theresa Sweet 35 [place] [address] 10/06/22 Daniel Reed 35 [place] [address] [email or web address] Nipping Machine Operator 06/21/21 Magalis Fong MD [address] [place] [address] Gastroenterology 09/12/23 Marilu Anderson MBBS [address] [place] [address] [email or web address] Primary Oncologist Medical Oncology 01/09/25 Micaela Cobb CNP [address] [place] [address] [email or web address] Nurse Practitioner Nurse Practitioner 04/05/25 documented as of this encounter Additional Source Comments The information contained in this document represents components of the legal health record. It is not the complete legal health record.[facility]
--- OUTSIDE RECORDS SUMMARY | 2025-05-01 00:34 | XMS_ITS | Clinical Summary ---
Author Organization [facility] Address [address] [place] [phone] Phone Care Team Providers Care Computer Trainer Name Role Phone Eva Monreal MD Primary Care Provider [phone] Allergies Active Allergy Reactions Criticality Noted Date [...] (and carbapenem) allergic unless disproved by an blacksmith apprentice by way of a graded challenge. skin test pre-pen, pen G, and ceftriaxone on 06/20/2013, were all negative. However, given the low sensitivity of the latter, this patient should be considered cephalosporin (and carbapenem) allergic unless disproved by an blacksmith apprentice by way of a graded challenge. skin test pre-pen, pen G, and ceftriaxone on 06/20/2013, were all negative. However, given the low sensitivity of the latter, this patient should be considered cephalosporin (and carbapenem) allergic unless disproved by an blacksmith apprentice by way of a graded challenge. skin test pre-pen, pen G, and ceftriaxone on 06/20/2013, were all negative. However, given the low sensitivity of the latter, this patient should be considered cephalosporin (and carbapenem) allergic unless disproved by an blacksmith apprentice by way of a graded challenge. skin test pre-pen, pen G, and ceftriaxone on 06/20/2013, were all negative. However, given the low sensitivity of the latter, this patient should be considered cephalosporin (and carbapenem) allergic unless disproved by an blacksmith apprentice by way of a graded challenge. skin test pre-pen, pen G, and ceftriaxone on 06/20/2013, were all negative. However, given the low sensitivity of the latter, this patient should be considered cephalosporin (and carbapenem) allergic unless disproved by an blacksmith apprentice by way of a graded challenge. skin test pre-pen, pen G, and ceftriaxone on 06/20/2013, were all negative. However, given the low sensitivity of the latter, this patient should be considered cephalosporin (and carbapenem) allergic unless disproved by an blacksmith apprentice by way of a graded challenge. skin test pre-pen, pen G, and ceftriaxone on 06/20/2013, were all negative. However, given the low sensitivity of the latter, this patient should be considered cephalosporin (and carbapenem) allergic unless disproved by an blacksmith apprentice by way of a graded challenge. Cilastatin [...] in the evening. 8 Active nystatin (MYCOSTATIN) 705491 UNIT/ML suspension SWISH AND SPIT WITH 5 [...] Visit [facility] [address] [place] [phone] Morales Kay MD Stage 3a chronic kidney disease (HCC) (Primary Dx); Hypertensive disorder; Anemia of chronic renal failure 02/06/2025 Documentation Only [facility] [address] [place] [address] Lisa Colmenares [place] from Last 3 Months [...] topic Insurance Medicare Medicaid [place] Care Teams Computer Trainer Relationship Specialty Start Date End Date Eva Monreal MD [address] [place] [address] PCP - General Internal Medicine 02/06/25
--- OUTSIDE RECORDS SUMMARY | 2025-05-01 00:34 | XMS_ITS ---
Author Organization [facility] Address [address] [facility] [address] [place] [address] Phone Care Team Providers Care Mat Tester Name Role Phone De Enciso MD Unavailable [phone] Eva Monreal MD Primary Care Provider [phone] Aydee Flores [facility] Unavailable Theresa Sweet Unavailable Unavailable Daniel Reed Unavailable [email or web address] Magalis Fong MD Unavailable [phone] Marilu Anderson Unavailable [phone] Micaela Cobb CNP Unavailable Active Problems Problem Noted Date Diagnosed Date At risk for falls 10/03/2024 Assessment & Plan (02/11/2025 3:44 PM EDT): See atrial fibrillation for assessment and plan. Recommend watchman. Assessment & Plan (10/31/2024 1:35 PM EST): This lady fell again and is a significant continued risk of falling she has another appointment to discuss watchman implant which she would greatly benefit from Atrial fibrillation with rapid ventricular respo nse 06/07/2024 Assessment & Plan (10/31/2024 1:35 PM EST): She is status post A-fib and a flutter ablation I have ordered her a 7-day MCOT monitor to evaluate this Assessment & Plan (08/14/2024 10:24 AM EST): She goes in and out of atrial fibrillation but usually she is in sinus rhythm. She does have palpitations from the A-fib. She is potentially on the schedule for September for an A-fib ablation Assessment & Plan (07/17/2024 12:04 PM EST): She is on anticoagulation but would like to get this patient implanted with a Watchman device as she does have some bleeding complications. Assessment & Plan (06/08/2024 9:38 AM EDT): Given IV diltiazem and rate in the 80s currently. Cardiology consulted Continue amiodarone and Eliquis, amiodarone switched to IV as per cardiology. States that she was intolerant to beta-blockers in the past. Plan for cardioversion on 06/08 as patient remains in a flutter despite IV amiodarone Acute on chronic diastolic heart failure 024 Assessment & Plan (07/17/2024 12:05 PM EST): Currently not complaining of shortness of breath. Assessment & Plan (06/26/2024 11:21 AM EDT): Currently euvolemic with a normal EF Assessment & Plan (06/08/2024 9:39 AM EDT): Manifesting with pulmonary edema, lower extremity edema and congestive nephropathy. Given IV Lasix in the emergency department, however currently patient appears clinically euvolemic and will not continue further IV diuresis Acute kidney injury 06/06/2024 Assessment & Plan (06/26/2024 11:21 AM EDT): Renal function has stabilized Assessment & Plan (06/08/2024 9:37 AM EDT): Suspect cardiorenal syndrome due to heart failure. Will hold her VANDANA inhibitor. Patient diuresed on admission, currently clinically euvolemic, will hold off on further diuresis Assessment & Plan (06/06/2024 5:40 PM EDT): This is likely in the setting of diuretics Previously had thought she was volume up due to leg swelling and proBNP elevation Creatinine bump/hyperkalemia following a couple weeks of furosemide Likely intravascularly dry although volume status difficult to determine Should repeat labs today to follow-up on her potassium as well as her kidney function when in the hospital Paroxysmal atrial fibrillation 04/06/2024 Overview (06/26/2024): She is symptomatic from her atrial fibrillation we will get her an expedited Assessment & Plan (02/11/2025 3:43 PM EDT): Patient is now status post ablation on 10/18/2024 which included PFA isolation of all 4 pulmonary veins and RFA of right CTI. EKG today shows normal sinus rhythm and no A-fib was seen on follow-up MCT. Patient occasionally gets palpitations but overall feels well. She continues on diltiazem and Eliquis for CVA prophylaxis. Patient has a history of anemia and follows with [facility] for injections. Patient has previously discussed Watchman and there was a plan in place to get her scheduled. We discussed the procedure today. We discussed the risk of the procedure and although the risk for a complication is low, they rarely can be serious and can include, but are not limited to, bleeding (pericardial effusion, hematoma, retroperitoneal bleed), infection, damage to heart muscle, valves, vein or artery requiring cardiac or vascular surgery, stroke, heart attack and . Chads-vasc score: 3 HAS-BLED score: 3 Does this patient have non-valvular atrial fibrillation: Yes Is the patient determined to be appropriate for post-procedure short term oral OAC or DAPT therpy: Yes Rationale for seeking non-pharmacological alternative to terminal gauger supervisor OAC (select all that apply): History of intracranial bleed where benefits of LAAC outweigh risks: Yes History of spontaneous bleeding other than intracranial: No Documented poor compliance with anticoagulation therapy after patient education: No Inability or significant difficulty with maintaining therapeutic anticoagulation range with use of guidelines: No Intolerance of warfarin and new OAC: No High risk of recurrent falls: Yes Cognitive impairment: No Severe renal failure: No Occupation/lifestyle related bleed risk: No Need for prolonged DAPT: No Increased bleeding risk not reflected by the HAD-BLED score (e.g., thrombocytopenia, cancer, or risk of tumor associated bleeding): Yes Other: No Please specify: Did a shared decision making discussion take place: Yes The [employer] tool below was reviewed by the patient and used to structure this shared decision-making interaction. www.cardiosmart.org/docs/default-source/assets/decision-aid/sfto-gilwnh-tezbqfbe on_ve ap-swdm-xvui.pdf?aknemx=[email or web address]_1 After review of this shared decision-making tool, and considering risks and benefits of each approach to stroke prevention, the patient would like to go forward with left atrial appendage occlusion. Assessment & Plan (06/26/2024 11:21 AM EDT): And visit with the EP doctor for possible ablation. Assessment & Plan (06/06/2024 5:35 PM EDT): ECG today showing atrial flutter with 4: 1 conduction rate 67 bpm. Same as ECG on 05/21. She has been developing hand tremors, I am concerned that this is a side effect from amiodarone which at this point is clearly not keeping her in rhythm regardless She still has persistent lower extremity swelling as well as some swelling in her face which did not really respond to diuretics which actually gave her an SUDARSHAN most likely. I think that she may be experiencing side effect from diltiazem with the swelling, previously was intolerant of metoprolol. Discussed case with Dr. Chin here in the office today. Patient already going to the hospital due to her SUDARSHAN and hyperkalemia Stopping amiodarone Would consider starting Multaq versus dofetilide load while she is in the hospital Could consider cardioversion if persistently in arrhythmia after switching antiarrhythmic Would plan on outpatient EP evaluation for ablation Limited options for rate control, would like to stop her diltiazem due to leg/facial swelling but did not tolerate metoprolol in the past, could try a different beta-kai and see how she tolerates She is supposed to have a consult in [place] for watchman Assessment & Plan (05/21/2024 1:55 PM EDT): ECG today showing atrial flutter with variable conduction, rate 69 bpm Occasionally still having episodes of elevated heart rate at home, sometimes 130s but this is not frequent Continue diltiazem 240 mg daily Continue Eliquis 5 mg twice daily She has a meeting for watchman consult in June Assessment & Plan (05/11/2024 2:35 PM EDT): Still intermittently having palpitation Diltiazem was increased to 240 mg daily during recent hospitalization Just prior to her diltiazem increase she did have a 7-day heart monitor Which is showing a 21% atrial fibrillation burden with rates ranging from 63-176 bpm with average rate of 134 bpm all atrial fibrillation. Heart rate regular on exam today rate 81 bpm For now we will continue diltiazem 240 mg daily Continue Eliquis 5 mg twice daily She is going to follow-up with her watchman consult in June If she has further symptoms of racing heart we can get another 48-hour monitor to evaluate heart rate control Assessment & Plan (05/03/2024 8:35 AM EDT): Currently euvolemic on diuretics and fluid restriction more than likely her pneumonia pushed her over until heart failure as she does have diastolic impairment. Assessment & Plan (04/06/2024 8:43 AM EDT): She is now on Eliquis 5 twice a day blood pressure is high heart rate is high we are adding metoprolol long-acting 100 mg a day. I have also ordered an MCOT monitor to be done in about a month I will see her thereafter in follow-up. Encounter for palliative care 06/30/2023 Assessment & Plan (10/05/2023 4:35 PM EST): Pain-she reports her pain is doing better and she is using markedly less oxycodone than she was the last time we met. Additionally she has been working with her system consultant who has her on medication that has been helpful with itching. She has been using marijuana Gummies which have also been helping along with acupuncture and she is gotten back into tennis which has been helpful. I reinforced that it seems that she is on a good regimen with a good plan my recommendation would be continue as is and hope that she continues to make even further improvements. Assessment & Plan (06/30/2023 7:07 PM EDT): Pain-she has seen a multitude of providers for the pain in her left arm and shoulder which is likely a combination of postherpetic neuralgia as well as radiculopathy. I am glad that she is seeing interventional pain as I am hopeful that with additional intervention she will see some benefit. Additionally she is on good medications including gabapentin which will likely contribute to improving her pain. She is interested in trying medical marijuana and we discussed using a one-to-one ratio of CBD to THC to see if this would help in transitioning to using edibles where she can more standardize the dose. Finally things such as yoga and acupuncture may be helpful long-term Coping-she is struggling with a lot of grief over a number of losses including her recent break-up, the loss of a dog, family members, a job, her ability to play tennis to the level that she likes to as well as other things. She is well connected to behavioral health resources in the community and has a therapist who she has worked with around her recent break-up. We discussed talking with her therapist about coping with pain as this is an area that he actually focuses on and may be helpful in managing this. 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 Patient states her blood pressure at the doctor's office last week was 122/60. Patient's blood pressure at her last visit was within normal limits as well. Will continue current management and have patient return in 6 months as scheduled. Plan: Continue losartan Continue diltiazem Follow-up after watchman implant Assessment & Plan (10/31/2024 1:34 PM EST): Well-controlled to the guidelines Assessment & Plan (08/14/2024 10:22 AM EST): Well-controlled at this time Assessment & Plan (07/17/2024 12:04 PM EST): Not well-controlled but repeat was much lower Assessment & Plan (05/21/2024 1:52 PM EDT): Blood pressure still running a little elevated at home 130s-140 systolic. Is pretty stable however. Starting her on Lasix for volume status, will see how her blood pressure does with this as well. Will continue her other antihypertensives without change. Assessment & Plan (05/03/2024 8:36 AM EDT): Blood pressure is mildly elevated today but recheck was normal. Squamous cell carcinoma 06/18/2011 Overview (10/26/2014): Squamous cell carcinoma; s/p removal from forehead Cytomegalovirus infection 02/27/2008 Overview (10/26/2014): Cytomegalovirus infection; Viral load positive; 2000 Hypertriglyceridemia 02/27/2008 Overview (10/26/2014): Hypertriglyceridemia Assessment & Plan (05/03/2024 8:35 AM EDT): Triglycerides should be less than 150 by the guidelines. 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 Assessment & Plan (05/03/2024 8:36 AM EDT): She had a stem cell transplant for this which is stable. 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 Other Current Plans [facility] PHOTOPHERESIS* Plan Start Date:02/07/2015 Plan Provider:Cosme Rae MD Linked Problems Jpsla-yovawb-jzvg disease Treatment Medications No medications scheduled. DARBEPOETIN ALPHA?(ARANESP)* Plan Start Date:01/02/2025 Plan Provider:Marilu Anderson MBBS Linked Problems Anemia associated with chron ic renal failure Treatment Medications No medications scheduled. DARBEPOETIN ALPHA?(ARANESP)* Plan Start Date:02/13/2025 Plan Provider:Ro Estrada NP Linked Problems Anemia associated with chron ic renal failure Treatment Medications No medications scheduled. 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
--- OUTSIDE RECORDS SUMMARY | 2025-05-01 00:34 | XMS_ITS | Encounter Summary ---
Author Organization [facility] Address [address] [place] [address] Phone Care Team Providers Care Blue Line Hanger Name Role Phone Erwin Gavin MD Primary Care Provider De Jaime MD Unavailable [phone] Brittany Estrella Unavailable [email or web address] Jeffery MD Unavailable [phone] Cheryl Hernandez LINUX ENGINEER Unavailable [phone] Eva Monreal MD Primary Care Provider [phone] Aydee Flores LINUX ENGINEER Unavailable Theresa Sweet Unavailable Unavailable Daniel Reed Unavailable [email or web address] Magalis Fong MD Unavailable + [phone] Marilu Anderson Unavailable [phone] Micaela Cobb CNP Unavailable Encounter Details Date Type Department Care Team (Late st Contact Info) Description 11/03/2016 EpicOnHand Encounter Division of Hematologic Oncology, [facility] [place] [address] [facility], [address]th [place] [address] Ro Estrada NP [address] [place] [address] [email or web address] Social History Tobacco Use Types Packs/Day Years [...] Info) Description 10/31/2024 Procedure Pass Echo Lab [address] [address] 05/09/2025 1:40 PM EDT Appointment [facility] [address] [place] [address] Marilu Anderson MBBS [address] [place] [address] 05/09/2025 2:30 PM EDT Office Visit [facility] at [address] [address] Marilu Anderson MBBS [address] [place] [address] 05/09/2025 3:40 PM EDT Infusion [facility] at [address] [address] Marilu Anderson MBBS [address] [place] [address] 05/27/2025 10:30 AM EDT Office Visit [facility] [address] [address] Lily Cuevas MD [address] [place] [address] [email or web address] 05/30/2025 3:00 PM EDT Appointment Echo Lab [address] [place] [address] Jose Vela DO [address] [facility] [address] [place] [address] 09/11/2025 1:00 PM EST Office Visit [facility] [address], [address] [place] [address] Segun Finnegan MD [address] [place] [address] [email or web address] documented as of this encounter Visit Diagnoses Not on filedocumented in this encounter Additional Health Concerns Infection Onset Date Last Indicated Resolved Time CoV-Risk Comment:Per note documentation 06/06/2024 06/06/2024 1:30 PM EDT documented as of this encounter Care Teams Blue Line Hanger Relationship Specialty Start Date End Date Erwin Gavin MD PCP - General 03/05/14 04/02/19 Eva Monreal MD [address] [place] [address] [email or web address] PCP - General Internal Medicine 04/03/19 De Enciso MD [address] [place] [address] Historical LMR Provider 01/16/15 Brittany Estrella [address] [place] [address] [email or web address] Clinical Coordinator Resource, Ancillary 02/10/15 06/08/21 Asher Toledo MD [address] [place] [address] [email or web address] Referring Physician Hematology 12/03/15 11/25/21 Cheryl Hernandez, [address] [address] [email or web address] Apartment Leasing Manager Oncology 12/05/15 06/08/21 Aydee Flores, [address] [address] [email or web address] Apartment Leasing Manager Oncology 06/09/21 Theresa Sweet [address] [place] [address] 10/06/22 Daniel Reed [address] [place] [address] [email or web address] Rv Parts And Service Director 06/21/21 Magalis Fong MD [address] [place] [address] Gastroenterology 09/12/23 Marilu Anderson MBBS [address] [place] [address] [email or web address] Primary Oncologist Medical Oncology 01/09/25 Micaela Cobb CNP [address] [place] [address] Nurse Practitioner Nurse Practitioner 04/05/25 documented as of this encounter Additional Source Comments The information contained in this document represents components of the legal health record. It is not the complete legal health record.[facility]
--- OUTSIDE RECORDS SUMMARY | 2025-05-01 00:34 | XMS_ITS | Clinical Summary ---
Author Organization [facility] [address] [facility] Address [address] [place] [address] Phone Care Team Providers Care Pulping Machine Operator Name Role Phone Eva Monreal MD Primary Care Provider [phone] Allergies Active Allergy Reactions Criticality Noted Date [...] Encounters Date Type Department Care Team Description 04/08/2025 Telephone Gastroenterology - [address] [phone] Magalis Fong MD 02/08/2025 Telephone Gastroenterology - [address] [phone] Swetha Romero NP 02/07/2025 3:51 PM EDT - 02/07/2025 11:59 PM EDT Hospital Encounter [facility] CT Scan [address] [place] [phone] LLQ pain Discharge Disposition: Home or Self Care 02/07/2025 3:10 PM EDT Office Visit Gastroenterology - [address] [facility] [address] [place] [phone] Swetha Romero NP Other constipation (Primary Dx); Periumbilical mass from [...] PM EDT Office Visit Gastroenterology - [address] [place] [phone] Magalis Fong MD [address] [place] [phone] Health Maintenance Due Date Last Done Comments [...] of left-sided pelvic venous congestion syndrome. 2. Xjwacekr-ps-bxbsi colonic stool burden. 3. No other acute [...] adenopathy. Abdominal aorta is normal caliber with akyo-nk-vvbkhayr calcific atherosclerosis. Bowel loops reveal a cqtgcbhb-pg-kxhhr colonic stool burden. Otherwise, no abnormal bowel [...] adenopathy. Abdominal aorta is normal caliber with ixbp-md-zomtjpck calcific atherosclerosis. Bowel loops reveal a upsaytvj-xd-icjgx colonic stool burden. Otherwise,no abnormal bowel wall [...] of left-sided pelvic venous congestion syndrome. 2. Dwdpwxma-dx-jdrfj colonic stool burden. 3. No other acute abnormalities or CT explanation for reported historyof left lower quadrant pain. This document has been electronically signed by: Nirmal Wong MD on 02/07/2025 17:21:39 Swetha Romero NP IMG CT PROCEDURES Final Resul t from Last 3 Months Insurance MEDICARE [place]ICAID - [place] Care Teams Pulping Machine Operator Relationship Specialty Start Date End Date Eva Monreal MD [address] [place] [address] PCP - General 10/26/22
--- OUTSIDE RECORDS SUMMARY | 2025-05-01 00:34 | XMS_ITS | Encounter Summary ---
Author Organization [facility] Address [address] [facility] [address] [place] [address] Phone Care Team Providers Care Mold Setter Name Role Phone De Enciso MD Unavailable [phone] Eva Monreal MD Primary Care Provider [phone] Aydee Flores [facility] Unavailable Theresa Sweet Unavailable Unavailable Daniel Reed Unavailable [email or web address] Magalis Fong MD Unavailable [phone] Marilu Anderson Unavailable [phone] Micaela Cobb CNP Unavailable Encounter Details Date Type Department Care Team (Late st Contact Info) Description 02/20/2025 Telephone [facility] [address] [facility] 1st [place] [address] Natalie Nichols NM [address] [place] [address] [email or web address] Social History Tobacco Use Types Packs/Day Years [...] 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 [address] [place] [address] Marilu Anderson MBBS 30 [place] [address] 05/09/2025 3:40 PM EDT Infusion [facility] [address] [place] [address] Marilu Anderson MBBS 30 [place] [address] 05/27/2025 10:30 AM EDT Office Visit [facility] [address] [facility] 1st [place] [address] Lily Cuevas MD [address] [place] [address] [email or web address] 05/30/2025 3:00 PM EDT Appointment Echo Lab [address] [address] Jose Vela DO [address] [place] [address] [place] [address] 09/11/2025 1:00 PM EST Office Visit [facility] [address] 3rd [facility], [address] [place] [address] Segun Finnegan MD [address] [place] [address] documented as of this encounter Visit Diagnoses Not on filedocumented in this encounter Care Teams Mold Setter Relationship Specialty Start Date End Date Eva Monreal MD [address] [place] [address] [email or web address] PCP - General Internal Medicine 04/03/19 De Enciso MD [address] [place] [address] Historical LMR Provider 01/16/15 Aydee Flores, [facility] [address] [place] [address] [email or web address] Echocardiography Technologist Oncology 06/09/21 Theresa Sweet 35 [place] [address] 10/06/22 Daniel Reed [address] [place] [address] [email or web address] Energy Advisor 06/21/21 Magalis Fong MD [address] [place] [address] Gastroenterology 09/12/23 Marilu Anderson MBBS [address] [place] [address] [email or web address] Primary Oncologist Medical Oncology 01/09/25 Micaela Cobb CNP [address] [place] [address] Nurse Practitioner Nurse Practitioner 04/05/25 documented as of this encounter Additional Source Comments The information contained in this document represents components of the legal health record. It is not the complete legal health record.[facility]
--- OUTSIDE RECORDS SUMMARY | 2025-05-01 00:34 | XMS_ITS | Encounter Summary ---
Author Organization [facility] Address [address] [facility] [address] [place] [address] Phone Care Team Providers Care General Hardware Salesperson Name Role Phone De Enciso MD Unavailable [phone] Eva Monreal MD Primary Care Provider [phone] Aydee Flores [facility] Unavailable Theresa Sweet Unavailable Unavailable Daniel Reed Unavailable [email or web address] Magalis Fong MD Unavailable [phone] Marilu Anderson Unavailable [phone] Micaela Cobb CNP Unavailable Encounter Details Date Type Department Care Team (Late st Contact Info) Description 05/03/2024 Procedure Pass Echo Lab [address] [place] [address] Social History Tobacco Use Types Packs/Day Years [...] 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 on file documented as of this encounter Plan of Treatment Upcoming Encounters Date Type Department Care Team (Late st Contact Info) Description 10/31/2024 Procedure Pass Echo Lab [address] [address] 05/09/2025 1:40 PM EDT Appointment [facility] Laboratory [address] [place] [address] Marilu Anderson MBBS [address] [place] [address] 05/09/2025 2:30 PM EDT Office Visit [facility] at [address] [address] Marilu Anderson MBBS [address] [place] [address] 05/09/2025 3:40 PM EDT Infusion [facility] at [address] [address] Marilu Anderson MBBS [address] [place] [address] 05/27/2025 10:30 AM EDT Office Visit [facility] [address] [place] [address] Lily Cuevas MD [address] [place] [address] [email or web address] 05/30/2025 3:00 PM EDT Appointment Echo Lab [address] [place] [address] Jose Vela DO [address] [facility] [address] [place] [address] 09/11/2025 1:00 PM EST Office Visit [facility] [address] [place] [address] Dr 3rd Floor, [address] [place] [address] Segun Finnegan MD [address] [place] [address] [email or web address] documented as of this encounter Visit Diagnoses Not on filedocumented in this encounter Additional Health Concerns Infection Onset Date Last Indicated Resolved Time CoV-Risk Comment:Per note documentation 06/06/2024 06/06/2024 1:30 PM EDT documented as of this encounter Care Teams General Hardware Salesperson Relationship Specialty Start Date End Date Eva Monreal MD [address] [place] [address] [email or web address] PCP - General Internal Medicine 04/03/19 De Enciso MD [address] [place] [address] Historical LMR Provider 01/16/15 Aydee Flores, [facility] 35 [place] [address] [email or web address] Street Light Lamp Cleaner Oncology 06/09/21 Theresa Sweet 35 [place] [address] 10/06/22 Daniel Reed [address] [place] [address] [email or web address] Gum Worker 06/21/21 Magalis Fong MD [address] [place] [address] Gastroenterology 09/12/23 Mrailu Anderson MBBS [address] [place] [address] [email or web address] Primary Oncologist Medical Oncology 01/09/25 Micaela Cobb CNP [address] [place] [address] [email or web address] Nurse Practitioner Nurse Practitioner 04/05/25 documented as of this encounter Additional Source Comments The information contained in this document represents components of the legal health record. It is not the complete legal health record.[facility]
--- OUTSIDE RECORDS SUMMARY | 2025-05-01 00:34 | XMS_ITS | Encounter Summary ---
Author Organization [facility] Address [address] [place] [address] Phone Care Team Providers Care Business Development Representative Name Role Phone Eva Monreal MD Primary Care Provider Encounter Details Date Type Department Care Team (Late st Contact Info) Description 02/06/2025 Documentation Only [facility], [address] [place] [address] Lisa ColmenaresALVARADO, [place] [address] [place] [address] Social History Tobacco Use Types Packs/Day Years Used Date Smoking Tobacco: Never Assessed Comments Unknown Sex and Gender Information Value Date Recorded Sex Assigned at Not on file Legal Sex Female 5:02 PM EST Gender Identity Not on file Sexual Orientation Not on file documented as of this encounter Plan of Treatment Not on file documented as of this encounter Visit Diagnoses Not on filedocumented in this encounter Care Teams Business Development Representative Relationship Specialty Start Date End Date Eva Monreal MD [address] [place] [address] PCP - General Internal Medicine 02/06/25 documented as of this encounter
--- OUTSIDE RECORDS SUMMARY | 2025-05-01 00:34 | XMS_ITS | Encounter Summary ---
Author Organization [facility] Address [address] [place] [address] Care Team Providers Care Transitional Nurse Name Role Phone Eva Monreal Primary Care Provider Encounter Details Date Type Department Care Team (Late st Contact Info) Description 04/12/2022 Telephone [facility] Central Scheduling Department [address] [place] [address] Telephone Intake, Staff Social History Tobacco Use [...] on filedocumented in this encounter Care Teams Transitional Nurse Relationship Specialty Start Date End Date Eva oMnreal [address] [place] [address] PCP - General Internal Medicine 12/12/20 documented as of this encounter
--- OUTSIDE RECORDS SUMMARY | 2025-05-01 00:35 | XMS_ITS | Encounter Summary ---
Author Organization [facility] Address [address] [facility] [address] [place] [address] Phone Care Team Providers Care Bi Tri Operator Name Role Phone Erwin Gavin MD Primary Care Provider De Jaime MD Unavailable [phone] Brittany Estrella Unavailable [email or web address]. Asher Jeffery MD Unavailable [phone] Cheryl Hernandez [employer] Unavailable + [phone] Eva Monreal MD Primary Care Provider [phone] Aydee Flores [employer] Unavailable Theresa Sweet Unavailable Unavailable Daniel Reed Unavailable [email or web address] Magalis Fong MD Unavailable + [phone] Marilu Anderson Unavailable [phone] Micaela Cobb CNP Unavailable Encounter Details Date Type Department Care Team (Late st Contact Info) Description 01/31/2019 Kae Encounter Procedure Suite, [facility] Cancer [address], 6th [place] [address] Ro Estrada NP [address] [place] [address] [email or web address] Social History Tobacco Use Types Packs/Day [...] 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 file documented as of this encounter Plan of Treatment Upcoming Encounters Date Type Department Care Team (Late st Contact Info) Description 10/31/2024 Procedure Pass Echo Lab [address] [place] [address] 05/09/2025 1:40 PM EDT Appointment [facility] [address] [place] [address] Marilu Anderson MBBS [address] [place] [address] 05/09/2025 2:30 PM EDT Office Visit [facility] at [address] [address] Marilu Anderson MBBS [address] [place] [address] 05/09/2025 3:40 PM EDT Infusion [facility] [place] at [address] [address] Marilu Anderson MBBS [address] [place] [address] 05/27/2025 10:30 AM EDT Office Visit [facility] [address] [facility] 1st [place] [address] Lily Cuevas MD [address] [place] [address] [email or web address] 05/30/2025 3:00 PM EDT Appointment Echo Lab [address] [place] [address] Jose Vela DO [address] [facility] [address] [place] [address] 09/11/2025 1:00 PM EST Office Visit [facility] [address] [place] [address] 3rd Floor, [address] [place] [address] Segun Finnegan MD [address] [place] [address] documented as of this encounter Visit Diagnoses Not on filedocumented in this encounter Additional Health Concerns Infection Onset Date Last Indicated Resolved Time CoV-Risk Comment:Per note documentation 06/06/2024 06/06/2024 1:30 PM EDT documented as of this encounter Care Teams Bi Tri Operator Relationship Specialty Start Date End Date Erwin Gavin MD PCP - General 03/05/14 04/02/19 Eva Monreal MD [address] [place] [address] [email or web address] PCP - General Internal Medicine 04/03/19 De Enciso MD [address] [place] [address] Historical LMR Provider 01/16/15 Brittany Estrella [address] [place] [address] [email or web address] Clinical Coordinator Resource, Ancillary 02/10/15 06/08/21 Asher Toledo MD [address] [place] [address] [email or web address] Referring Physician Hematology 12/03/15 11/25/21 Cheryl Hernandez, [address] [address] [email or web address] Inspector Casing Oncology 12/05/15 06/08/21 Aydee Flores, [address] [address] [email or web address] Inspector Casing Oncology 06/09/21 Theresa Sweet [address] [place] [address] 10/06/22 Daniel Reed [address] [place] [address] [email or web address] Scrap Collector 06/21/21 Magalis Fong MD [address] [place] [address] Gastroenterology 09/12/23 Marilu Anderson MBBS [address] [place] [address] [email or web address] Primary Oncologist Medical Oncology 01/09/25 Micaela Cobb CNP [address] [place] [address] [email or web address] Nurse Practitioner Nurse Practitioner 04/05/25 documented as of this encounter Additional Source Comments The information contained in this document represents components of the legal health record. It is not the complete legal health record.[facility]
--- OUTSIDE RECORDS SUMMARY | 2025-05-01 00:35 | XMS_ITS | Clinical Summary ---
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 Name Role Phone Chun Enciso MD Unavailable [phone] Eva Monreal MD Primary Care Provider [phone] Aydee Flores [facility] Unavailable Theresa Sweet Unavailable Unavailable Daniel Reed Unavailable [email or web address] Magalis Fong MD Unavailable [phone] Marilu Anderson Unavailable [phone] Micaela Cobb CNP Unavailable Allergies Active Allergy Reactions Criticality Noted Date Comments Amlodipine 04/22/2024 Other Reaction(s): Unknown Other Reaction(s): ankle swell Benzoyl Peroxide-Hc 08/30/2022 Other reaction(s): rash Ceftazidime Rash Low 07/20/2017 Cephalosporins Hives 08/25/2008 skin test pre-pen, pen G, and ceftriaxone on 06/20/2013, were all negative. However, given the low sensitivity of the latter, this patient should be considered cephalosporin (and carbapenem) allergic unless disproved by an nuclear auxiliary operator by way of a graded challenge. Cilastatin 08/30/2022 Other reaction(s): rash Imipenem-Cilastatin Hives Medium 06/20/2013 Lisinopril Other (See Comments) 07/01/2010 cough Penicillins Rash Low 07/25/2013 this patient [...] rash. Vancomycin Hcl Rash Medium 02/01/2013 Medications FA/MV,CA,IRON,MIN /LYCOPENE/LUT (MULTIVITAL ORAL) MVI (MULTIVITAMINS ); Dose: 1 TAB; Form: Not available; Route: PO; Frequency: QD; Directions: Not available; Details: Duration: 30 day(s); Dispense: 1 Month(s) Supply; Taking; Status: Active; Source: RISHABH TREJO M.D. ,M.P.H.; Date: 02/14/2009 009 Active niacinamide 500 mg tablet Take 1 tablet (500 mg total) by mouth 2 (two) times a day with meals. 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 Please administer physical therapy three times weekly. 1 Units 4 019 Active ESTRACE 0.01 % (0.1 mg/gram) vaginal cream Place vaginally 2 (two) times a week. 020 Active Lactobacillus acidophilus (PROBIOTIC) 10 billion cell Cap Take 1 capsule by mouth daily. Active LORazepam (ATIVAN) 1 MG tablet Take 1 tablet (1 mg total) by mouth every 8 (eight) hours as needed for anxiety. 60 tablet 3 023 Active acetaminophen (TYLENOL) 500 MG tablet Take 1,000 mg by mouth as needed. Active loperamide (IMODIUM) 2 mg capsule Take 2 mg by mouth 4 (four) times a day as needed for diarrhea. Active dexAMETHasone 0.5 mg/5 mL solution Swish and spit 5 mL (0.5 mg total) 3 (three) times a day. Swish and hold in mouth for 4-5 min, then spit. No food or drink for 20 min after. 300 mL 3 024 Active dilTIAZem (CARDIZEM CD) 240 MG 24 hr capsule Take 1 capsule (240 mg total) by mouth daily. 90 capsule 3 Active furosemide (LASIX) 20 MG tablet Take 20 mg by mouth daily. Active tretinoin (RETIN-A) 0.025 % creamIndications: Actinic keratoses Apply topically nightly at bedtime. Pea-sized amount to face. Start every 3rd night and increase as tolerated to nightly dosing. Do not take when . 45 g 11 Active levothyroxine (SYNTHROID,LEVOTH ROID) 25 MCG tabletIndications :Acquired hypothyroidism Take 1 tablet (25 mcg total) by mouth every morning. 30 tablet Active Additional Information Patient taking differently: 112 mcgOral Every morning, Reported on 04/08/2025 clobetasol (TEMOVATE) 0.05 % Gel Apply 1 Application topically as needed. 2024 Active ketoconazole (NIZORAL) 2 % shampoo as directed Externally Active famotidine (PEPCID) 20 MG tablet TAKE 1 TABLET BY MOUTH TWICE A DAY 180 tablet 3 024 Active gabapentin (NEURONTIN) 300 MG capsuleIndication s:Peripheral neuropathy due to chemotherapy,Hist ory of peripheral stem cell transplant,Post herpetic neuralgia Take 2 capsules (600 mg total) by mouth 3 (three) times a day. 180 capsule 6 Active DULoxetine (CYMBALTA) 60 MG capsule 2 (two) times a day. Active mirtazapine (REMERON) 7.5 MG tablet Take 7.5 mg by mouth. 024 Active JARDIANCE 10 mg tabletIndications :Acute on chronic diastolic heart failure TAKE 1 TABLET BY MOUTH EVERY DAY 90 tablet 3 025 Active losartan (COZAAR) 25 MG tablet Take 1 tablet (25 mg total) by mouth daily. 90 tablet 3 025 Active ELIQUIS 2.5 mgIndications:Par oxysmal atrial fibrillation TAKE 1 TABLET BY MOUTH TWICE A DAY 60 tablet 5 025 Active fluorouraciL (EFUDEX) 5 % creamIndications: Actinic keratosis APPLY TO THE FOREHEAD, LEFT CHEEK AND LOWER LEGS TWICE DAILY FOR 2 WEEKS 40 g 1 025 Active folic acid (FOLVITE) 1 MG tablet TAKE 1 TABLET BY MOUTH EVERY DAY 90 tablet 3 025 Active ciclopirox (PENLAC) 8 % solutionIndicatio ns:Onychomycosis Apply topically nightly at bedtime. Apply over nail and surrounding skin. Apply daily over previous coat. After seven (7) days, may remove with alcohol and continue cycle. 6.6 mL 11 025 Active calcipotriene (DOVONEX) 0.005 % creamIndications: Actinic keratosis Mix with efudex cream in one to one ratio and apply twice daily for 7 days to rough raised spots. Protect areas of application from sun. 60 g 5 025 Active triamcinolone acetonide 0.1 % cream Apply topically 2 (two) times a day. For rash on lower legs twice daily for up to two weeks of each month. 80 g 1 025 Active lamoTRIgine (LAMICTAL) 25 MG IMMEDIATE release tablet Take 25 mg by mouth. 025 Active oxyCODONE 5 MG immediate release tabletIndications :Acute myeloid leukemia in remission,Chronic pain syndrome Take 2 tablets (10 mg total) by mouth every 4 (four) hours as needed (MAX 6 tablets per day, 20 day supply). Partial fill ok. 120 tablet 025 Active valACYclovir (VALTREX) 500 MG tablet TAKE 1 TABLET BY MOUTH TWICE A DAY 180 tablet 3 025 Active valACYclovir (VALTREX) 500 MG tablet take 1 tablet by mouth twice a day 180 tablet 3 024 2024 Discontinued oxyCODONE 5 MG immediate release tabletIndications :Acute myeloid leukemia in remission,Chronic pain syndrome Take 2 tablets (10 mg total) by mouth every 4 (four) hours as needed (MAX 6 tablets per day, 20 day supply). Partial fill ok. 120 tablet 025 2024 Discontinued(R eorolf) Active Problems Problem Noted Date Diagnosed Date [...] a history of anemia and follows with [facility] for injections. 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 who has her on medication that has [...] History of peripheral stem cell transplant 06/23 Fxpkz-dcbhns-akuj disease 03/24/2015 Overview (05/14/2016): IMO update Hypertensive [...] ceftazidime 07/06/2007 Overview (10/26/2014): allergy to ceftazidime Resolved Problems Problem Noted Date Diagnosed Date Resolved Date Uncoded 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 Overview (10/26/2014): Bone marrow transplant; MUD, non-myeloablative Uncoded 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 Overview (10/26/2014): H/O Bone marrow transplant; Autologous Encounters Date Type Department Care Team Description 04/22/2025 3:00 PM EDT Infusion [facility] at [address] [address] Marilu Anderson MBBS O'Donnell, Kaitlin, GREGORIA Anemia associated with chronic renal failure (Primary Dx) 04/22/2025 1:50 PM EDT - 04/22/2025 11:59 PM EDT Hospital Encounter [facility] [address] [place] [address] Marilu Anderson MBBS Discharge Disposition: Home or Self Care 04/18/2025 Orders Only [facility] at [address] [address] Lit Allen CMA 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) 04/13/2025 Refill Procedure Suite, [address], [address] [place] [address] Ro Estrada NP Medication Refill 04/13/2025 Orders Only Procedure Suite, [address], 6th [place] [address] Ro Estrada NP Acute myeloid leukemia in remission; Chronic pain syndrome 04/08/2025 2:06 PM EDT - 04/08/2025 11:59 PM EDT Hospital Encounter [facility] Laboratory [address] [place] [address] Marilu Anderson MBBS Discharge Disposition: Home or Self Care 04/08/2025 2:00 PM EDT Infusion [facility] at [address] [address] Marilu Anderson MBBS Brumbaugh, Benjamin, GREGORIA Anemia associated with chronic renal failure (Primary Dx) 04/08/2025 1:30 PM EDT Office Visit [facility] at [address] [address] Micaela Cobb CNP 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); Anemia associated with chronic renal failure 04/08/2025 11:50 AM EDT - 04/08/2025 2:05 PM EDT Hospital Encounter [facility] Laboratory [address] [place] [address] Marilu Anderson MBBS Discharge Disposition: Home or Self Care 04/08/2025 Telephone [facility] at [address] [address] Kanchan Torres, GREGORIA Labs 04/04/2025 Orders Only [facility] at [address] [address] Lit Allen CMA Anemia associated with chronic renal failure (Primary Dx) 04/03/2025 Telephone [facility] at [address] [address] Marilu Anderson MBBS pt call re labs / aranesp 04/01/2025 3:15 PM EDT Office Visit [facility] [address] [facility] [address] [place] [address] Iglesia Michaud, DO Stasis dermatitis (Primary Dx) 03/25/2025 Telephone [facility] [address] [facility] [address] [place] [address] Kush Berkowitz 03/22/2025 Telephone [facility] [address] [place] [address] Shaka García MD, PhD 03/21/2025 Telephone [facility] [address] [facility] [address] [place] [address] LPN lesions of concern 03/13/2025 Refill Division of Hematologic Oncology, [facility] [address], [address] [place] [address] Ro Estrada NP Medication Refill 02/25/2025 Telephone [facility] [address] [address] Anjelica Manzano LPN Medication Prior Authorization 02/21/2025 Telephone [facility] [address] [facility], [address] [place] [address] Segun Finnegan MD 02/21/2025 Transcribe Orders [facility] [address] [facility], [address] [place] [address] Segun Finnegan MD 02/20/2025 Telephone [facility] [address] [address] Natalie Nichols [place] 02/13/2025 2:15 PM EDT Infusion [facility] [address], [address] [place] [address] Jairon Feliciano MD Baker-Brooks, Kelsey, RN Anemia associated with chronic renal failure (Primary Dx) 02/13/2025 11:15 AM EDT Office Visit [facility] [address] [address] Lily Cuevas MD Actinic keratosis (Primary Dx); Onychomycosis; Screening for malignant neoplasm of skin; Lentigines; Seborrheic keratoses; Personal history of skin cancer; Post herpetic neuralgia; History of SCC (squamous cell carcinoma) of skin 02/13/2025 Orders Only Division of Hematologic Oncology, [facility] [address] [facility], 8th [place] [address] Ro Estrada NP 02/12/2025 Orders Only Procedure Suite, [facility] [address] [facility] [address] [facility], 6th [place] [address] Ro Estrada NP Acute myeloid leukemia in remission; Chronic pain syndrome 02/11/2025 3:00 PM EDT Office Visit [facility] [address] [facility] 3rd Floor, [address] [place] [address] Brittany Ramesh DNP Paroxysmal atrial fibrillation (Primary Dx); At risk for falls; Hypertension, unspecified type 02/06/2025 Telephone [facility] [address] [facility] 1st [place] [address] Shalonda Mathews RN Medication Prior Authorization 02/05/2025 11:20 AM EDT Infusion [facility] at [address] [address] Marilu Anderson MBBS Anemia associated with chronic renal failure (Primary Dx) 02/05/2025 10:00 AM EDT Office Visit [facility] at [address] [address] Marilu Anderson MBBS Anemia associated with chronic renal failure (Primary Dx); Acute myeloid leukemia in remission; History of peripheral stem cell transplant 02/05/2025 8:50 AM EDT - 02/05/2025 11:59 PM EDT Hospital Encounter [facility] [address] [place] [address] Marilu Anderson MBBS Discharge Disposition: Home or Self Care 02/04/2025 Orders Only [facility] at [address] [address] Lit Allen CMA Hypertriglyceridemia (Primary Dx) 02/02/2025 Refill Division of Hematologic Oncology, [facility] [address] [facility], 8th [place] [address] Trini Lee NP Medication Refill 02/02/2025 Refill [facility] [address] [place] [address] Lily Cuevas MD Medication Refill 02/01/2025 Refill Procedure Suite, [facility] [address] [facility], 6th [place] [address] oR Estrada NP Medication Refill 01/30/2025 Telephone [facility] [address] [place] [address] LPN Wound Care from Last 3 Months Immunizations Immunization Administration Dates Next Due COVID-19, Unspecified Formulation 09/05/2020 Hib, unspecified formulation 10/05/2010,11/04/19 10 INFLUENZA, SPLIT VIRUS, TRIVALENT PF 09/17/2013, 06/19/2012 Influenza High-Dose Quadriva lent Preservative Free IM 05/21/2022,06/07/2021,06/07/2020,06/06 Influenza High-Dose Trivalen t Preservative Free IM 05/14/2024 Influenza Quadrivalent Adjuv anted Preservative Free IM 06/10/2023 Influenza Quadrivalent Prese rvative Free IM 07/03/2018,06/16/2017,06/18/2015 Influenza Recombinant Ynes valent Preservative Free IM 07/01/2019 Influenza, Unspecified Formulation 07/12,06/08/2010,06/17/2009,07/19,07/20/2004,07/10/2003 MMR 07/19/2005 Meningococcal MPSV4 11/03/2009 Pneumococcal conjugate PCV21 02/06/2025 Pneumococcal conjugate, PCV 7 10/05/2010, 010 Pneumococcal polysaccharide PPSV23 03/30/2013(De ferred: Other),07/19/2005 Pneumococcal, Unspecified Formulation 07/19/2005 Td (adult) 5 Lf Tetanus Toxo id, PF, Adsorbed 04/23/2015 Tdap 10/05/2010,11/03/2009 Tetanus toxoid, unspecified formulation 07/19/2005 Zoster recombinant 04/12/2022 Family History Medical History Relation Comments Brain cancer Father Brain Cancer Stroke Father Cerebrovascular Accident Glaucoma Mother Glaucoma Lung cancer Mother Lung Cancer Melanoma Mother Relation Status Comments Father Mother Social History Tobacco Use Types Packs/Day Years Used Date Smoking Tobacco: Never Smokeless Tobacco: Never Tobacco Cessation:Counseling Given: Not Answered Alcohol Use Standard Drinks/Week Comments Yes 0 [...] 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 Not on file Not on file Last Filed Vital Signs Vital Sign Reading Time Taken Comments Blood Pressure 115/61 04/08/2025 1:11 PM EDT Pulse 84 04/08/2025 1:11 PM EDT Temperature 36.6 C (97.9 F) 04/08/2025 1:11 PM EDT Respiratory Rate 17 01/02/2025 2:25 PM EDT Oxygen Saturation 96% 04/08/2025 1:11 PM EDT Inhaled Oxygen Concentration - - Weight 55 kg (121 lb 4.8 oz) 04/08/2025 1:10 PM EDT Height 172 cm (5' 7.72 ) 02/11/2025 3:11 PM EDT Body Mass Index 18.6 02/11/2025 3:11 PM EDT Plan of Treatment Upcoming Encounters Date Type Department Care Team (Late st Contact Info) Description 10/31/2024 Procedure Pass [facility] [address] [address] 05/09/2025 1:40 PM EDT Appointment [facility] [address] [place] [address] Marilu Anderson MBBS [address] [place] [address] 05/09/2025 2:30 PM EDT Office Visit [facility] at [address] [address] Marilu Anderson MBBS [address] [place] [address] 05/09/2025 3:40 PM EDT Infusion [facility] at [address] [address] Marilu Anderson MBBS [address] [place] [address] 05/27/2025 10:30 AM EDT Office Visit [facility] [address] [address] Lily Cuevas MD [address] [place] [address] [email or web address] 05/30/2025 3:00 PM EDT Appointment Echo Lab [address] [place] [address] Jose Vela DO [address] [facility] [address] [place] [address] 09/11/2025 1:00 PM EST Office Visit [facility] [address] [place] [address] 3rd Floor, [address] [place] [address] Segun Finnegan MD [address] [place] [address] Health Maintenance Due Date Last Done Comments DEPRESSION SCREENING 1966 MAMMOGRAM 1994 COLOGUARD 1999 COLONOSCOPY 1999 FIT TEST 1999 FOBT 1999 VIRTUAL COLONOSCOPY 1999 RSV VACCINE (1 - Risk 60-74 years 1-dose series) 2014 OSTEOPOROSIS SCREENING INITIAL (ONE-TIME) 2019 03/31/2010 COLORECTAL CANCER SCREENING 02/05/2020 SIGMOIDOSCOPY 02/05/2020 02/04/2015, 10/2014, 02/08/2014, Additional history exists ZOSTER VACCINES (2 of 2) 06/07/2022 04/12/2022 Adult Td,Tdap Booster 04/23/2025 04/23/2015 , 10/05/2010, 11/03/2009 BLOOD PRESSURE 10/09/2025 04/08/2025 TSH LEVEL 01/02/2026 01/02/2025, 11/0 12/2023, 06/19/2024, Additional history exists CREATININE LEVEL 04/22/2026 04/22/2025, 12/2024, 02/05/2025, Additional history exists POTASSIUM LEVEL 04/22/2026 04/22/2025, 0812/2024, 02/05/2025, Additional history exists LIPID PANEL 01/02/2030 01/02/2025, 12/04, 08/09/2018, Additional history exists HEPATITIS C SCREENING Completed 10/16/2009 , 10/16/2009, 10/21/2008, Additional history exists MENINGOCOCCAL VACCINES (ACWY) Aged Out 11/03/2009 No longer eligible based on patient's age to complete this topic HIB VACCINES Aged Out 10/05/2010, 11/03/2009 No lo nger eligible based on patient's age to complete this topic COVID-19 VACCINE Completed 02/06/2025, 05/2024, 12/26/2023, Additional history exists PNEUMOCOCCAL VACCINES (50+ years) Completed 02/06/2025, 07/19/2005 SMOKING STATUS SCREENING (Once After 26 Yrs) Completed 04/08/2025 HEPATITIS A VACCINES Aged Out No long er eligible based on patient's age to complete this topic MENINGOCOCCAL VACCINES (B) Aged Out N o longer eligible based on patient's age to complete this topic Medical Devices Not on file Procedures Procedure Name Priority Date/Time Associated Diagnosis Comments COMPREHENSIVE METABOLIC PANEL Routine 04/22/2025 2:51 PM EDT Acute myeloid leukemia in remission CBC AND DIFFERENTIAL Routine 04/22/2025 2:51 PM EDT Acute myeloid leukemia in remission FOLATE Routine 04/08/2025 2:06 PM EDT Anemia associated with chronic renal failure LAB ADD ON Routine 04/08/2025 1:32 PM EDT Acute myeloid leukemia in remission Anemia associated with chronic renal failure PATHOLOGY REVIEW Routine 04/08/2025 12:0 0 PM EDT IRON AND IRON BINDING CAPACITY Routine 04/08/2025 12:00 PM EDT FERRITIN Routine 04/08/2025 12:00 PM EDT VITAMIN B12 Routine 04/08/2025 12:00 PM EDT COMPREHENSIVE METABOLIC PANEL Routine 04/08/2025 12:00 PM EDT Anemia associated with chronic renal failure CBC AND DIFFERENTIAL Routine 04/08/2025 12:00 PM EDT Anemia associated with chronic renal failure COMPREHENSIVE METABOLIC PANEL Routine 02/05/2025 9:06 AM EDT Hypertriglyceridemi a CBC AND DIFFERENTIAL Routine 02/05/2025 9:06 AM EDT Hypertriglyceridemi a LIPID PANEL Routine 01/02/2025 1:45 PM EDT History of peripheral stem cell transplant Acute myeloid leukemia in remission Anemia associated with chronic renal failure TSH Routine 01/02/2025 1:45 PM EDT History of peripheral stem cell transplant Acute myeloid leukemia in remission Anemia associated with chronic renal failure Acquired hypothyroidism Hypothyroidism, unspecified type ENDOSCOPY, SIGMOID 02/04/2015 12 :07 PM EDT BD DXA AXIAL (SPINE) WITH HIP Routine 03/31/2010 6:35 PM EDT HISTORICAL LAB Routine 10/16/2009 7:00 PM EST from Last 3 Months or Most Recently Relevant to Health Maintenance Results * (ABNORMAL) Comprehensive metabolic panel (04/22/2025 2:51 PM EDT) Only the most recent of3 resultswithin the time period is included. SODIUM 136 133 - 146 mmol/L [facility] POTASSIUM 4.7 3.3 - 5.1 mmol/L [facility] CHLORIDE 98 96 - 108 mmol/L [facility] CO2 25 21 - 35 mmol/L [facility] BUN 26(H) 6 - 19 mg/dL [facility] CREATININE 1.50 0.5 - 1.5 mg/dL [facility] GLUCOSE 99 70 - 99 mg/dL [facility] ALBUMIN 3.8(L) 3.9 - 4.8 g/dL [facility] TOTAL PROTEIN 6.2(L) 6.5 - 8.0 g/dL [facility] CALCIUM 9.2 8.4 - 10.3 mg/dL [facility] ALKALINE PHOSPHATASE 158(H) 39 - 117 U/L [facility] TOTAL BILIRUBIN 0.4 0.0 - 1.2 mg/dL [facility] AST 19 0 - 37 U/L [facility] ALT 11 0 - 40 U/L [facility] GLOBULIN 2.4 1 - 4.8 g/dL [facility] EGFR 37(L) >59 mL/min/1.7 3m2 [facility] Comment:Estimated glomerular filtration rate calculated using the CKD-EPI refit equation. ANION GAP 18 10 - 20 mmol/L [facility] Blood 04/22/2025 2:51 PM EDT 04/22/2025 2:58 PM EDT us Marilu RICHARDSON LAB BLOOD ORDERABLES Final R esult [address] [address] * (ABNORMAL) CBC and differential (04/22/2025 2:51 PM EDT) Only the most recent of3 resultswithin the time period is included. WBC 7.22 4.00 - 11.00 K/uL [facility] RBC 2.50(L) 4.00 - 5.20 M/uL [facility] HGB 8.1(L) 12.0 - 16.0 g/dL [facility] HCT 24.9(L) 36.0 - 46.0 % [facility] PLT 177 150 - 450 K/uL [facility] MCV 99.6 80.0 - 100.0 fL [facility] MCH 32.4(H) 27.0 - 31.0 pg [facility] MCHC 32.5 32.0 - 36.0 g/dL [facility] RDW 18.0(H) 11.5 - 14.5 % [facility] MPV 9.9 8.4 - 12.0 fL [facility] NRBC 0.40(H) 0.00 /100 WBCs [facility] ABSOLUTE NRBC 0.03(H) 0.00 K/uL [facility] DIFF METHOD Auto [facility] NEUTS 59.5 48.0 - 76.0 % [facility] LYMPHS 23.3 18.0 - 41.0 % [facility] MONOS 9.4 4.0 - 11.0 % [facility] EOS 7.1(H) 0.0 - 5.0 % [facility] BASOS 0.4 0.0 - 1.5 % [facility] Granulocytes, immature (%) 0.3 0.0 - 0.9 % [facility] ABSOLUTE NEUTS 4.30 1.92 - 7.60 K/uL [facility] ABSOLUTE LYMPHS 1.68 0.72 - 4.10 K/uL [facility] ABSOLUTE MONOS 0.68 0.16 - 1.10 K/uL [facility] ABSOLUTE EOS 0.51(H) 0.00 - 0.50 K/uL [facility] ABSOLUTE BASOS 0.03 0.00 - 0.15 K/uL [facility] Granulocytes, immature 0.02 0.00 - 0.09 K/uL [facility] Blood 04/22/2025 2:51 PM EDT 04/22/2025 2:58 PM EDT us Marilu ESQUIVELBS LAB BLOOD ORDERABLES Final R esult [address] [address] * (ABNORMAL) Folate (04/08/2025 2:06 PM EDT) FOLIC ACID >20.0(H) 4.2 - 19.9 ng/mL [facility] Blood 04/08/2025 2:06 PM EDT 04/08/2025 2:20 PM EDT us Micaela Cobb CNP LAB BLOOD ORDERABLES Final Resul t Performing Organization Address [facility]/ZIP Co de Phone Number [address] [address] * Lab Add On: iron, iron sat, ferritin, folate, vit b12 (04/08/2025 1:32 PM EDT) TEST REQUESTED IRON, IRON SAT, FERRITIN, FOLATE, VIT B12 [facility] Comments (Chemistry) Add on order being processed. Floor or provider will be notified if testing cannot be performed [facility] 04/08/2025 1:32 PM EDT 04/08/2025 1:58 PM EDT Micaela Cobb CNP LAB BLOOD ORDERABLES Edited Resu lt - Final [address] [address] * Pathology review (04/08/2025 12:00 PM EDT) PATH REVIEW NO ABNORMAL WBCS [facility] Comment:Reviewed by Chao cárdenas MD 04/08/2025 12:0 0 PM EDT 04/08/2025 12:02 PM EDT Result [facility] Marilu RICHARDSON LAB BLOOD ORDERABLES Final R esult Performing Organization Address [facility]/ZIP Co de Phone Number [address] [address] * (ABNORMAL) Iron and iron binding capacity (04/08/2025 12:00 PM EDT) IRON 32 30 - 160 ug/dL [facility] IRON BINDING CAPACITY 241 228 - 428 ug/dL [facility] TRANSFERRIN SATURAT. 13(L) 15 - 50 % [facility] 04/08/2025 12:0 0 PM EDT 04/08/2025 12:02 PM EDT Result [facility] Marilu ESQUIVEL LAB BLOOD ORDERABLES Final R esult Performing Organization Address City/[facility]/ZIP Co de Phone Number [address] [address] * (ABNORMAL) Ferritin (04/08/2025 12:00 PM EDT) FERRITIN 188(H) 13 - 150 ug/L [facility] 04/08/2025 12:0 0 PM EDT 04/08/2025 12:02 PM EDT us Marilu Anderson [facility] BLOOD ORDERABLES Final R esult Performing Organization Address City/[facility]/ZIP Co de Phone Number [address] [address] * Vitamin B12 (04/08/2025 12:00 PM EDT) VITAMIN B12 851 232 - 1,245 pg/mL [facility] 04/08/2025 12:0 0 PM EDT 04/08/2025 12:02 PM EDT us Marilu Monica [facility] BLOOD ORDERABLES Final R esult Performing Organization Address City/[facility]/ZIP Co de Phone Number [address] [address] * TSH (01/02/2025 1:45 PM EDT) TSH 1.53 0.27 - 4.20 uIU/mL [facility] LIC# [id number] Blood 01/02/2025 1:45 PM EDT 01/02/2025 1:46 PM EDT us Ro Estrada [employer] LAB BLOOD ORDERABLES Final Result [facility] LIC# [id number] [address] [place] [address] * (ABNORMAL) Lipid panel (01/02/2025 1:45 PM EDT) CHOLESTEROL 198 <200 mg/dL [facility] LIC# [id number] TRIGLYCERIDES 129 35 - 150 mg/dL [facility] LIC# [id number] HDL 104(H) 40 - 80 mg/dL [facility] LIC# [id number] CALCULATED LDL 68 50 - 129 mg/dL [facility] LIC# [id number] VLDL 26 <31 mg/dL [facility] LIC# [id number] CARDIAC RISK RATIO 1.9 0.0 - 5.0 D [facility] LIC# [id number] Blood 01/02/2025 1:45 PM EDT 01/02/2025 1:46 PM EDT us Ro Walton Natalie [employer] LAB BLOOD ORDERABLES Final Result [facility] LIC# [id number] [address] [place] [address] * ENDOSCOPY, SIGMOID (02/04/2015 12:07 PM EDT) 02/04/2015 12:0 7 PM EDT Narrative 02/04/2015 1:39 PM EDT Report Number: [id number] Report Status: Signed Type: Flexible Sigmoidoscopy Date: 02/04/2015 12:07 [facility] Gastroenterology Patient Name: John Lin Procedure Date: 02/04/2015 12:07 PM Date of : 1955 Admit Type: Outpatient Age: 59 Room: 8 Gender: Female Note Status: Finalized Attending MD: BALDEMAR EASON M.D. 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 Procedure: Pre-Anesthesia Assessment: - All questions were answered and informed consent was obtained. - ASA Grade Assessment: II - A patient with mild systemic disease. - Airway Examination: Mallampati Class II (the uvula but not tonsillar pillars visualized). After informed consent was obtained, the endoscope was passed under direct vision. Throughout the procedure, the patient's blood pressure, pulse, and oxygen saturations were monitored continuously. The CF-Q160S was introduced through the anus and advanced to the descending colon. The flexible sigmoidoscopy was accomplished without difficulty. The patient tolerated the procedure well. The quality of the bowel preparation was fair. Prep type: Fleet enema Findings: The perianal and digital rectal examinations were normal. An area of mildly congested mucosa was found in the recto-sigmoid colon. Biopsies were taken with a cold forceps for histology. There is no endoscopic evidence of bleeding, inflammation, mass or polyps in the recto-sigmoid colon. A few small-mouthed diverticula were found in the sigmoid colon. Impression: - Congested mucosa in the recto-sigmoid colon. Biopsied. - Diverticulosis in the sigmoid colon. Recommendation: - Discharge patient to home. - Await pathology results. - Return to referring physician as previously scheduled. - Patient has a contact number available for emergencies. The signs and symptoms of potential delayed complications were discussed with the patient. Return to normal activities tomorrow. Written discharge instructions were provided to the patient. - Low fiber diet and lactose free diet. BALDEMAR EASON M.D. 02/04/2015 1:39 PM This report has been signed electronically. Number of Addenda: 0 Note Initiated On: 02/04/2015 12:07 PM Procedure Note Baldemar Eason MD - 02/04/2015 12:07 PM EDT Report Number: [id number] Report Status:Signed Type: Flexible Sigmoidoscopy Date: 02/04/2015 12:07 [facility] Gastroenterology Patient Name: John Lin Procedure Date: 02/04/2015 12:07 PM Date of : 1955 Admit Type: Outpatient Age: 59 Room: 8 Gender: Female Note Status: Finalized Attending MD: BALDEMAR EASON M.D. 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 Procedure: Pre-Anesthesia Assessment: - All questions were answered and informed consent was obtained. - ASA Grade Assessment: II - A patient with mild systemic disease. - Airway Examination: Mallampati Class II (the uvula but not tonsillar pillars visualized). After informed consent was obtained, the endoscope was passed under direct vision. Throughout the procedure, the patient's blood pressure, pulse, and oxygen saturations were monitored continuously. The CF-Q160S was introduced through the anus and advanced to the descending colon. The flexible sigmoidoscopy was accomplished without difficulty. The patient tolerated the procedure well. The quality of the bowel preparation was fair. Prep type: Fleet enema Findings: The perianal and digital rectal examinations were normal. An area of mildly congested mucosa was found in the recto-sigmoid colon. Biopsies were taken with a cold forceps for histology. There is no endoscopic evidence of bleeding, inflammation, mass or polyps in the recto-sigmoid colon. A few small-mouthed diverticula were found in the sigmoid colon. Impression: - Congested mucosa in the recto-sigmoid colon. Biopsied. - Diverticulosis in the sigmoid colon. Recommendation: - Discharge patient to home. - Await pathology results. - Return to referring physician as previously scheduled. - Patient has a contact number available for emergencies. The signs and symptoms of potential delayed complications were discussed with the patient. Return to normal activities tomorrow. Written discharge instructions were provided to the patient. - Low fiber diet and lactose free diet. BALDEMAR EASON M.D. 02/04/2015 1:39 PM This report has been signed electronically. Number of Addenda: 0 Note Initiated On: 02/04/2015 12:07 PM us Unknown Unknown MD GI PROCEDURE ORDERABLES Final Result * DXA Axial (Spine With Hip) (03/31/2010 6:35 PM EDT) Anatomical Region Laterality Modality Bone Density Bone Density 03/30/2010 3:07 PM EDT Narrative 03/31/2010 6:35 PM EDT Exam Number: [id number] Report Status: Final Type: QDR 1 OR MORE LOCATIONS Date/Time: 03/30/2010 15:07 Exam Code: B410 Ordering Provider: CHUN ENCISO MD REPORT: Bone Density Report Name: JOHN LIN Age: 54 Sex: Female Ethnicity: White Date of : 1955 Indication: postmenopause, steroid use Referring Physician: CHUN ENCISO MD Study: Bone densitometry was performed. Exam Date: March 30, 2010 Accession number: [id number] Bone Density: Region BMD T-Score Z-Score Classification AP Spine (L3, L4) 0.857 -2.2 -1.0 Osteopenic Femoral Neck (Left) 0.645 -1.8 -0.7 Osteopenic Total Hip (Left) 0.728 -1.8 -1.0 Osteopenic World Health Organization criteria for BMD interpretation classify patients as: Normal (T-score at or above -1.0), Osteopenic (T-score between -1.0 and -2.5),or Osteoporotic (T-score at or below -2.5). Medical History: Menopause Age: 47 Interpretation: The patient has bone density consistent with OSTEOPENIA. Note: L1 and 2 excluded from analysis for degenerative change. Reported by: ROSALIA CROW MD on 03/31/2010 5:50:00 PM. RADIOLOGISTS: SIGNATURES: ROSALIA CROW ANGELA ANN Finalized on: 03/31/2010 18:35 Procedure Note Sys, Conversion Provider Not In - 01/21/2015 Exam Number: [id number] Report Status: Final Type: QDR 1 OR MORE LOCATIONS Date/Time: 03/30/2010 15:07 Exam Code: B410 Ordering Provider: CHUN ENCISO MD REPORT: Bone Density Report Name: JOHN LIN Age: 54 Sex: Female Ethnicity: White Date of : 1955 Indication: postmenopause, steroid use Referring Physician: CHUN ENCISO MD Study: Bone densitometry was performed. Exam Date: March 30, 2010 Accession number: [id number] Bone Density: Region BMD T-Score Z-Score Classification AP Spine (L3, L4) 0.857 -2.2 -1.0 Osteopenic Femoral Neck (Left) 0.645 -1.8 -0.7 Osteopenic Total Hip (Left) 0.728 -1.8 -1.0 Osteopenic World Health Organization criteria for BMD interpretation classify patients as: Normal (T-score at or above -1.0), Osteopenic (T-score between -1.0 and -2.5),or Osteoporotic (T-score at or below -2.5). Medical History: Menopause Age: 47 Interpretation: The patient has bone density consistent with OSTEOPENIA. Note: L1 and 2 excluded from analysis for degenerative change. Reported by: ROSALIA CROW MD on 03/31/2010 5:50:00 PM. RADIOLOGISTS: SIGNATURES: ROSALIA CROW ANGELA ANN Finalized on: 03/31/2010 18:35 Chun Enciso MD IMG BD BONE DENSITY DEXA F inal Result * Historical Lab (10/16/2009 7:00 PM EST) HBsAg NEGATIVE NEGATIVE [facility] HCV NEGATIVE NEGATIVE [facility] 10/16/2009 7:00 PM EST Comment:BLOOD Chun Enciso MD LAB BLOOD ORDERABLES Final Result [address] [address] from Last 3 Months or Most Recently Relevant to Health Maintenance Insurance [facility] MEDICARE PART A & B [place] [facility] [facility] & [facility] [place] Member Subscriber Plan / Payer (Ef fective 2015-Present) Name:John Lin Relation to Subscriber:Self Name:John Lin Payer ID:[id number] Group ID:Not on file Type:Medicaid Address: [facility] [address] [id number] [place]ICARE [place] A [place] Member Subscriber Plan / Payer (Ef fective 2015-Present) Name:John Lin Relation to Subscriber:Self Name:John Lin Payer ID:[id number] Group ID:Not on file Type:Medicaid Address: 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 Laundry Presser Oncology 06/09/21 Theresa Sweet [address] [place] [address] 10/06/22 Daniel Reed [address] [place] [address] [email or web address] Civil Service Worker 06/21/21 Magalis Fong MD [address] [place] [id number] Gastroenterology 09/12/23 Marilu Anderson MBBS [address] [place] [address] [email or web address] Primary Oncologist Medical Oncology 01/09/25 Micaela Cobb CNP [address] [place] [address] [email or web address] Nurse Practitioner Nurse Practitioner 04/05/25 Additional Source Comments The information contained in this document represents components of the legal health record. It is not the complete legal health record.[facility]
--- NOTE | 2025-05-01 01:56 | PC.NURSE ---
pt assisted to bathroom with steady gait, urine cup given to pt at this time
--- NOTE | 2025-05-01 01:56 | ED.WOUNDLAC ---
HPI - Wound/Laceration General Chief Complaint: Wound/Laceration Stated Complaint: skin tare left arm Time Seen by Provider: 05/01/25 01:15 Source: patient Mode of arrival: ambulatory Limitations: no limitations History of Present Illness ED Provider: Dr. Flaca Barnhart HPI narrative: Patient comes to the emergency room complaining of a skin tear. Patient states that yesterday she fell into a wall and scraped her elbow. The patient takes aspirin and Plavix. Patient states that she went to urgent care and they cleaned the wound and wrapped it. However, patient states that it is bleeding through. Patient denies hitting her head or losing consciousness. However, patient also reports that she has a large hematoma in the left flank/back area which is pretty painful. Related Data Home Medications ?Medication ?Instructions ?Recorded ?Confirmed gabapentin 300 mg capsule 600 mg PO TID 10/13/23 04/02/25 oxycodone 5 mg tablet 10 mg PO Q4H PRN Pain 10/13/23 04/02/25 estradiol 0.01% (0.1 mg/gram) 1 appl vaginal MARRUFO 10/28/23 04/02/25 vaginal cream famotidine 20 mg tablet 20 mg PO BID 10/28/23 04/02/25 folic acid 1 mg tablet 1 mg PO DAILY 10/28/23 04/02/25 losartan 25 mg tablet 25 mg PO DAILY 10/28/23 04/02/25 valacyclovir 500 mg tablet 500 mg PO BID 02/20/24 04/02/25 hydroxyzine HCl 25 mg tablet 25 mg PO Q8H PRN itching 07/13/24 04/02/25 diltiazem HCl 240 mg 240 mg PO DAILY 08/10/24 04/02/25 capsule,extended release 24 hr empagliflozin 10 mg tablet 10 mg PO DAILY 08/10/24 04/02/25 (Jardiance) Lactobacillus acidophilus 10 10,000 mmu cells PO DAILY 09/23/24 04/02/25 billion cell capsule (Probiotic) acetaminophen 500 mg tablet 500 mg PO Q6H PRN Pain 09/23/24 04/02/25 multivitamin 1 tab PO DAILY 09/23/24 04/02/25 cyclosporine 0.05 % eye drops in a 1 drp ophthalmic (eye) BID 11/16/24 04/02/25 dropperette (Restasis) duloxetine 60 mg capsule,delayed 60 mg PO BID 11/16/24 04/02/25 release levothyroxine 112 mcg tablet 112 mcg PO DAILY@0600 11/16/24 04/02/25 aspirin 81 mg tablet,delayed 81 mg PO DAILY 04/02/25 04/02/25 release clopidogrel 75 mg tablet 75 mg PO DAILY 04/02/25 04/02/25 lamotrigine 25 mg tablet mg PO 04/02/25 04/02/25 Previous Rx's ?Medication ?Instructions ?Recorded lorazepam 0.5 mg tablet 0.5 mg PO DAILY PRN anxiety #30 08/10/24 tabs cephalexin 500 mg tablet 500 mg PO QID #28 tabs 11/19/24 mupirocin 2 % topical ointment 1 appl topical TID #22 grams 11/19/24 mirtazapine 7.5 mg tablet 7.5 mg PO BEDTIME #90 tabs 03/04/25 Allergies Allergy/AdvReac Type Severity Reaction Status Date / Time vancomycin (VANCOMYCIN) Allergy Mild HIVES Verified 04/30/25 21:11 imipenem (IMIPENEM) Allergy Unknown HIVES Verified 04/30/25 21:11 Penicillins (PENICILLINS) Allergy Unknown UNKNOWN Verified 04/30/25 21:11 lisinopril (LISINOPRIL) AdvReac Unknown COUGH Verified 04/30/25 21:11 Review of Systems Review of Systems: Constitutional : No Weight loss, No Fever, No Chills, No Night Sweats, No Fatigue, No Malaise ENT/Mouth : No Hearing loss, No Ear Pain, No Nasal Congestion, No Sinus Pain, No Hoarseness, No sore throat, No Rhinorrhea, No Swallowing Difficulty Eyes: No Eye Pain, No Swelling, No Redness, No Foreign Body, No Discharge, No Vision Changes Cardiovascular : No Chest Pain, No SOB, No Dyspnea on Exertion, No Orthopnea, No Edema, No Palpitations Respiratory : No Cough, No Sputum, No Wheezing, No Smoke Exposure, No Dyspnea Gastrointestinal : No Nausea, No Vomiting, No Diarrhea, No Constipation, No abdominal Pain, No Hematochezia, No Melena Genitourinary : no irregular bleeding, No Dysuria, No Urinary Frequency, No Hematuria, No Urinary Incontinence, No Urgency, No Flank Pain, No Urinary Flow Changes, No Hesitancy Musculoskeletal : No joint pain, No Myalgias, No Joint Swelling Skin : Complaining of a skin tear in the left arm Neuro : No Weakness, No Numbness, No Paresthesias, No Loss of Consciousness, No Dizziness, No Headache Psych : No Anxiety/Panic, No Depression, No SI/HI/AH/VH, No Social Issues, Heme/Lymph: No Bruising, No Bleeding,No Lymphadenopathy Endocrine : No Polyuria, No Polydipsia, No Temperature Intolerance [facility] Past Medical History Medical History OCD (obsessive compulsive disorder) Left shoulder pain PAF (paroxysmal atrial fibrillation) Major depressive disorder, recurrent, moderate Dysthymia Post herpetic neuralgia Social History Social History Household Members: None Housing: House Do you presently have visiting nurse or other home services: No Alcohol intake: current Alcohol intake frequency: holidays/special occasions only Patient Tobacco Use Status: Never used Tobacco Substance Use Type: Marijuana Advance Directives: Yes Advance Directives on File: Yes Advance Directives Date on File: 11/16/24 Do you have a plan to hurt others: No Plan service: No Physical Exam Exam: Exam: Appearance: Alert. Oriented X3. No acute distress. Eyes: Pupils equal, round and reactive to light. ENT: Pharynx normal. Neck: Normal inspection. Neck supple. No lymph nodes noted. No crepitus CVS: Normal heart rate and rhythm. Pulses normal. Normal S1 and S2 Respiratory: No respiratory distress. Breath sounds normal. No Wheezing. No rales Abdomen: Soft and nontender. No rigidity. No distention. Skin: Patient has a small 1 cm skin tear over the left elbow that has a pinpoint side with of active bleeding. Patient able to flex and extend the elbow. Patient has a large ecchymosis in the left flank/left back Extremities: No lower extremity edema. No Lacerations. No Rash Neuro: Oriented X 3. No motor deficit. No sensory deficit. Moving all extremities. No slurred speech. CN 2 through 12 grossly intact Psych: calm, cooperative, normal affect Vital Signs: Vital Signs: Last Vital Signs Temp 98.5 F 04/30/25 21:06 Pulse 82 04/30/25 21:06 Resp 15 04/30/25 21:06 BP 141/81 H 04/30/25 21:06 Pulse Ox 99 04/30/25 21:06 O2 Del Method Room Air 04/30/25 21:06 BMI result Body Mass Index 18.9 Course Course Course Narrative: The elbow has a very small pinpoint area of active bleeding. With the a silver nitrate, the area was cauterized and the bleeding stopped. Patient's arm was thoroughly cleaned and wrapped. On physical exam, it was noted that patient has a large ecchymosis on the left flank. Patient agreeable to get lab work done, CAT scan, urinalysis to rule out UTI If hemoglobin/hematocrit stable, patient may return home. Patient lives with her boyfriend Medical Decision Making Medical Decision Making MDM Narrative: All of patient's labs and imaging pending. Sign-out given to my colleague Dr. Espinosa Critical Care Time Critical Care Time Critical Care Time: Yes Total Critical Care Time: 35 Attestation: I have personally provided critical care time. Time includes review of lab data, radiology results, discussion with consultants, and monitoring for potential decompensation. Intervention performed as documented. Discharge Plan Discharge Clinical Impression: Skin tear of elbow without complication, Traumatic ecchymosis of flank Prescriptions: No Action hydroxyzine HCl 25 mg tablet 25 mg PO Q8H PRN (Reason: itching) multivitamin Tablet 1 tab PO DAILY acetaminophen 500 mg Tablet 500 mg PO Q6H PRN (Reason: Pain) Probiotic 10 billion cell Capsule 10,000 mmu cells PO DAILY levothyroxine 112 mcg tablet 112 mcg PO DAILY@0600 cyclosporine [Restasis] 0.05 % dropperette 1 drp ophthalmic (eye) BID duloxetine 60 mg capsule,delayed release(DR/EC) 60 mg PO BID mupirocin 2 % ointment 1 appl topical TID Qty: 22 0RF cephalexin 500 mg tablet 500 mg PO QID Qty: 28 0RF losartan 25 mg tablet 25 mg PO DAILY estradiol 0.01 % (0.1 mg/gram) cream 1 appl vaginal MARRUFO Rx Instructions: APPLY TWICE A WEEK folic acid 1 mg tablet 1 mg PO DAILY famotidine 20 mg tablet 20 mg PO BID valacyclovir 500 mg tablet 500 mg PO BID oxycodone 5 mg tablet 10 mg PO Q4H PRN (Reason: Pain) gabapentin 300 mg capsule 600 mg PO TID diltiazem HCl 240 mg capsule,extended release 24hr 240 mg PO DAILY Jardiance 10 mg tablet 10 mg PO DAILY lorazepam 0.5 mg tablet 0.5 mg PO DAILY PRN (Reason: anxiety) Qty: 30 2RF mirtazapine 7.5 mg tablet 7.5 mg PO BEDTIME Qty: 90 0RF lamotrigine 25 mg tablet PO clopidogrel 75 mg tablet 75 mg PO DAILY aspirin 81 mg tablet,delayed release (DR/EC) 81 mg PO DAILY Print Language: Maltese
[2025-05-01 02:37] LABS: MANUAL DIFF FLAG NO
[2025-05-01 02:38] LABS: Hematocrit 26.5 % (37.0-47.0); Hemoglobin 9.3 g/dl (12.0-16.0); Imm Gran Abs Auto 0.02 X10*3/uL (0.00-0.03); Imm Gran Pct Auto 0.3 % (0.0-0.4); Lymphocytes Absolute Auto 1.6 X10*3/uL (1.2-4.9); Mean Corpuscular HGB Conc 35.1 g/dl (31.0-35.0); Mean Corpuscular Hemoglobin 33.0 pg (27.0-33.0); Mean Corpuscular Volume 94.0 fL (80.0-98.0); NRBC Abs Auto 0.080 X10*3/uL (0.0-0.012); Platelet Count 201 X10*3/uL (160-400); Red Blood Count 2.82 X10*6/uL (4.20-5.50); White Blood Count 7.4 X10*3/uL (4.8-10.8)
[2025-05-01 02:39] LABS: Appearance Urine Clear; Glucose Urine UA 500 mg/dL (Negative); PH 7.5 (5.0-9.0); Specific Gravity - Urine 1.010 (1.005-1.025)
[2025-05-01 02:44] LABS: NRBC Pct Auto 1.1 /100WBC (0.0-0.2)
[2025-05-01 02:48] LABS: Cannabinoid Screen Urine Not Detected (Not Detect)
[2025-05-01 02:55] LABS: Alanine Aminotransferase 18 U/L (0-31); Albumin Level 4.3 g/dL (3.5-5.0); Alkaline Phosphatase 211 U/L (39-117); Anion Gap 14 (12-20); Aspartate Amino Transferase 37 U/L (5-31); Blood Urea Nitrogen 27 mg/dL (9-16); Calcium 9.5 mg/dL (8.4-10.2); Carbon Dioxide 30 mmol/L (22-29); Chloride 101 mmol/L (96-108); Creatinine Clr Calc Pharmacy 37.8; Estimated Glomerular Filt Rate 45; Potassium 4.2 mmol/L (3.3-5.1); Sodium 141 mmol/L (135-145); Total Protein 7.0 g/dL (6.5-8.0)
[2025-05-01 03:02] VITALS: BP 132/70; PULSE 70; TEMP 36.7; O2SAT 99
[2025-05-01] MEDS: iohexoL 350 MG/ML 100 ML INFUS..BTL 85 ML IV (03:36)
[2025-05-01 06:34] VITALS: BP 132/70; PULSE 70; RESP 18; TEMP 36.7; O2SAT 99
== END 2025-05-01 05:30 | disposition home or self-care (01) ==
PROVIDERS: Emergency Medicine; Emergency Provider Emergency Medicine; PCP Internal Medicine
DX: S50.319A Abrasion of unspecified elbow, initial encounter (principal); S30.1XXA Contusion of abdominal wall, initial encounter; W22.8XXA Striking against or struck by other objects, initial encounter; Y93.9 Activity, unspecified; Y92.9 Unspecified place or not applicable; Y99.9 Unspecified external cause status; Z79.899 Other long term (current) drug therapy; I48.0 Paroxysmal atrial fibrillation
CPT/HCPCS: 36415; 74177; 80048; 80076; 80307; 81003; 85025; 99284; 99285; Q9967

== ENCOUNTER 2025-05-25 00:08 | Inpatient (IN) | payer MEDICARE, MEDICAID, SELFPAY ==
--- OUTSIDE RECORDS SUMMARY | 2025-05-23 12:10 | XMS_ITS | Encounter Summary ---
Author Organization [facility] Address [address] [facility] [address] [place] [address] Phone Care Team Providers Care Frame Stripper Name Role Phone De Enciso MD Unavailable [phone] Eva Monreal MD Primary Care Provider Aydee Flores [facility] Unavailable Theresa Sweet Unavailable Unavailable Daniel Reed Unavailable [email or web address] Magalis Fong MD Unavailable [phone] Micaela Cobb CNP Unavailable Marilu Anderson Unavailable Valeri MoralesP Unavailable [phone] Marilu Anderson Unavailable Encounter Details Date Type Department Care Team (Latest Contact Info) Description 05/23/2025 12:10 PM EDT - 05/23/2025 11:59 PM EDT Hospital Encounter [facility] [address] [place] [address] Marilu Anderson MBBS [address] [place], [place] [id number] [email or web address] Arrived Discharge Disposition: Home or Self Care Social History Tobacco Use Types Packs/Day Years [...] 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 budesonide (ENTOCORT EC) 3 mg 24 hr capsuleIndications: Gmgts-kqnyet-lquz disease, unspecified,Stem cells transplant status TAKE 3 CAPSULES (9 MG TOTAL) BY MOUTH DAILY. 270 capsule 1 5 calcipotriene (DOVONEX) 0.005 % creamIndications:Ac tinic keratosis Mix with efudex cream in one to one ratio and apply twice daily for 7 days to rough raised spots. Protect areas of application from sun. 60 g 5 5 ciclopirox (PENLAC) 8 % solutionIndications :Onychomycosis Apply topically nightly at bedtime. Apply over nail and surrounding skin. Apply daily over previous coat. After seven (7) days, may remove with alcohol and continue cycle. 6.6 mL 11 5 clobetasol (TEMOVATE) 0.05 % Gel Apply 1 Application topically as needed. 4 07/09/20 25 clopidogrel (PLAVIX) 75 mg tablet Take 75 mg by mouth daily. 5 dexAMETHasone 0.5 mg/5 mL solution Swish and spit 5 mL (0.5 mg total) 3 (three) times a day. Swish and hold in mouth for 4-5 min, then spit. No food or drink for 20 min after. 300 mL 3 4 dilTIAZem (CARDIZEM CD) 240 MG 24 hr capsule Take 1 capsule (240 mg total) by mouth daily. 90 capsule 3 4 DULoxetine (CYMBALTA) 60 MG capsule 2 (two) times a day. 5 ELIQUIS 2.5 mgIndications:Parox ysmal atrial fibrillation TAKE 1 TABLET BY MOUTH TWICE A DAY 60 tablet 5 5 ESTRACE 0.01 % (0.1 mg/gram) vaginal cream Place vaginally 2 (two) times a week. 0 FA/MV,CA,IRON,MIN/L YCOPENE/LUT (MULTIVITAL ORAL) MVI (MULTIVITAMINS); Dose: 1 TAB; Form: Not available; Route: PO; Frequency: QD; Directions: Not available; Details: Duration: 30 day(s); Dispense: 1 Month(s) Supply; Taking; Status: Active; Source: RISHABH TREJO M.D.,M. P.H.; Date: 02/14/2009 9 famotidine (PEPCID) 20 MG tablet TAKE 1 TABLET BY MOUTH TWICE A DAY 180 tablet 3 4 fluorouraciL (EFUDEX) 5 % creamIndications:Ac tinic keratosis APPLY TO THE FOREHEAD, LEFT CHEEK AND LOWER LEGS TWICE DAILY FOR 2 WEEKS 40 g 1 5 folic acid (FOLVITE) 1 MG tablet TAKE 1 TABLET BY MOUTH EVERY DAY 90 tablet 3 5 furosemide (LASIX) 20 MG tablet Take 20 mg by mouth daily. gabapentin (NEURONTIN) 300 MG capsuleIndications: Peripheral neuropathy due to chemotherapy,Histor y of peripheral stem cell transplant,Post herpetic neuralgia TAKE 2 CAPSULES BY MOUTH 3 TIMES A DAY 180 capsule 6 5 JARDIANCE 10 mg tabletIndications:A cute on chronic diastolic heart failure TAKE 1 TABLET BY MOUTH EVERY DAY 90 tablet 3 5 ketoconazole (NIZORAL) 2 % shampoo as directed Externally Lactobacillus acidophilus (PROBIOTIC) 10 billion cell Cap Take 1 capsule by mouth daily. lamoTRIgine (LAMICTAL) 25 MG IMMEDIATE release tablet Take 25 mg by mouth 2 (two) times a day. 5 levothyroxine (SYNTHROID,LEVOTHRO ID) 25 MCG tabletIndications:A cquired hypothyroidism Take 1 tablet (25 mcg total) by mouth every morning. 30 tablet 4 loperamide (IMODIUM) 2 mg capsule Take 2 mg by mouth 4 (four) times a day as needed for diarrhea. LORazepam (ATIVAN) 1 MG tablet Take 1 tablet (1 mg total) by mouth every 8 (eight) hours as needed for anxiety. 60 tablet 3 3 losartan (COZAAR) 25 MG tablet Take 1 tablet (25 mg total) by mouth daily. 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 Please administer physical therapy three times weekly. 1 Units 4 9 mirtazapine (REMERON) 7.5 MG tablet Take 7.5 mg by mouth. 4 niacinamide 500 mg tablet Take 1 tablet (500 mg total) by mouth 2 (two) times a day with meals. 60 tablet 3 8 oxyCODONE 5 MG immediate release tabletIndications:A cute myeloid leukemia in remission,Chronic pain syndrome Take 2 tablets (10 mg total) by mouth every 4 (four) hours as needed (MAX 6 tablets per day, 20 day supply). Partial fill ok. 120 tablet 5 sulfamethoxazole-tr imethoprim (BACTRIM DS) 800-160 mg per tablet Take 1 tablet (160 mg of trimethoprim total) by mouth 2 (two) times a day. 7 tablet 5 tretinoin (RETIN-A) 0.025 % creamIndications:Ac tinic keratoses Apply topically nightly at bedtime. Pea-sized amount to face. Start every 3rd night and increase as tolerated to nightly dosing. Do not take when . 45 g 11 4 triamcinolone acetonide 0.1 % cream Apply topically 2 (two) times a day. For rash on lower legs twice daily for up to two weeks of each month. 80 g 1 5 valACYclovir (VALTREX) 500 MG tablet TAKE 1 TABLET BY MOUTH TWICE A DAY 180 tablet 3 5 documented as of this encounter Plan of Treatment Upcoming Encounters Date Type Department Care Team (Late st Contact Info) Description 10/31/2024 Procedure Pass Echo Lab [address] [place] [address] 05/27/2025 10:30 AM EDT Office Visit [facility] [address] [place] [address] Lily Cuevas MD [address] [place] [address] [email or web address] 05/30/2025 3:00 PM EDT Appointment Echo Lab [address] [place] [address] Jose Vela DO [address] [address] 06/07/2025 8:10 AM EDT Appointment [facility] [address] [place] [address] Marilu Anderson MBBS [address] [place] [address] 06/07/2025 9:00 AM EDT Office Visit [facility] at [address] [address] Marilu Andersno [address] [address] 06/07/2025 11:00 AM EDT Infusion [facility] at [address] [address] Marilu Anderson [address] [address] 06/21/2025 9:10 AM EDT Appointment [address] [address] Marilu Anderson MBBS [address] [place] [address] 06/21/2025 10:00 AM EDT Office Visit [facility] at [address] [address] Marilu Anderson [address] [address] 06/21/2025 11:40 AM EDT Infusion [facility] at [address] [address] Marilu Anderson [address] [address] 09/11/2025 1:00 PM EST Office Visit [facility] [address] [place] [address] [address]rd Floor, [address] [place] [address] Segun Finnegan MD [address] [place] [address] [email or web address] documented as of this encounter Procedures Procedure Name Priority Date/Time Associated Diagnosis Comments RETICULOCYTES Routine 05/23/2025 12:17 PM EDT Anemia, chronic disease IRON AND IRON BINDING CAPACITY Routine 05/23/2025 12:17 PM EDT Anemia, chronic disease CBC AND DIFFERENTIAL Routine 05/23/2025 12:17 PM EDT Anemia associated with chronic renal failure FERRITIN Routine 05/23/2025 12:17 PM EDT Anemia, chronic disease documented in this encounter Results * (ABNORMAL) Reticulocytes (05/23/2025 12:17 PM EDT) RETIC (%) 1.9 0.7 - 2.5 % [facility] RETIC (ABSOLUTE) 0.0540 0.0164 - 0.0776 M/uL [facility] RETIC HGB EQUIV 23.20(L) 26.7 - 35.5 pg [facility] Comment:Decreased Retic HE i ndicates low iron availability. Retics, immature(%) 11.8 3.0 - 15.9 % [facility] Blood 05/23/2025 12:1 7 PM EDT 05/23/2025 12:20 PM EDT us Marilu RICHARDSON LAB BLOOD ORDERABLES Final R esult [facility] [address] [place] [address] * (ABNORMAL) Iron and iron binding capacity (05/23/2025 12:17 PM EDT) IRON 18(L) 30 - 160 ug/dL [facility] IRON BINDING CAPACITY 254 228 - 428 ug/dL [facility] TRANSFERRIN SATURAT. 7(L) 15 - 50 % [facility] Blood 05/23/2025 12:1 7 PM EDT 05/23/2025 12:20 PM EDT [facility] [place] [facility] LAB BLOOD ORDERABLES Final R esult [address] [address] * Ferritin (05/23/2025 12:17 PM EDT) FERRITIN 71 13 - 150 ug/L [facility] Blood 05/23/2025 12:1 7 PM EDT 05/23/2025 12:20 PM EDT [facility] LAB BLOOD ORDERABLES Final R esult Performing Organization Address City/[facility]/ZIP Co de Phone Number [address] [address] * (ABNORMAL) CBC and differential (05/23/2025 12:17 PM EDT) WBC 7.87 4.00 - 11.00 K/uL [facility] RBC 2.50(L) 4.00 - 5.20 M/uL [facility] HGB 8.1(L) 12.0 - 16.0 g/dL [facility] HCT 23.7(L) 36.0 - 46.0 % [facility] PLT 153 150 - 450 K/uL [facility] Comment:Lauren Lai from the [facility] was notified of this delta change. MCV 94.8 80.0 - 100.0 fL [facility] MCH 32.4(H) 27.0 - 31.0 pg [facility] MCHC 34.2 32.0 - 36.0 g/dL [facility] RDW 18.6(H) 11.5 - 14.5 % [facility] MPV 9.4 8.4 - 12.0 fL [facility] NRBC 0.00 0.00 /100 WBCs [facility] ABSOLUTE NRBC 0.00 0.00 K/uL [facility] DIFF METHOD Auto [facility] NEUTS 76.4(H) 48.0 - 76.0 % [facility] LYMPHS 11.9(L) 18.0 - 41.0 % [facility] MONOS 7.6 4.0 - 11.0 % [facility] EOS 3.6 0.0 - 5.0 % [facility] BASOS 0.1 0.0 - 1.5 % [facility] Granulocytes, immature (%) 0.4 0.0 - 0.9 % [facility] ABSOLUTE NEUTS 6.01 1.92 - 7.60 K/uL [facility] ABSOLUTE LYMPHS 0.94 0.72 - 4.10 K/uL [facility] ABSOLUTE MONOS 0.60 0.16 - 1.10 K/uL [facility] ABSOLUTE EOS 0.28 0.00 - 0.50 K/uL [facility] ABSOLUTE BASOS 0.01 0.00 - 0.15 K/uL [facility] Granulocytes, immature 0.03 0.00 - 0.09 K/uL [facility] SCHISTOCYTES 1+(A) None [facility] TARGET CELLS PRESENT(A ) None [facility] Blood 05/23/2025 12:1 7 PM EDT 05/23/2025 12:20 PM EDT us Marilu [facility] LAB BLOOD ORDERABLES Final R esult Performing Organization Address City/State/[facility] Co de Phone Number [address] [address] documented in this encounter Visit Diagnoses Diagnosis Anemia associated with chronic renal failure Anemia in chronic kidney disease Anemia, chronic disease Anemia of other chronic disease documented in this encounter Care Teams Frame Stripper Relationship Specialty Start Date End Date Eva Monreal MD [address] [place] [address] [email or web address] PCP - General Internal Medicine 04/03/19 De Enciso MD [address] [place] [address] Historical LMR Provider 01/16/15 Aydee Flores, [address] [address] [email or web address] Keno Manager Oncology 06/09/21 Theresa Sweet [address] [place], [place] 10/06/22 Daniel Reed [address] [place] [address] [email or web address] Professor 06/21/21 Magalis Fong MD [address] [place] [address] Gastroenterology 09/12/23 Micaela Cobb CNP [address] [place] [address] [email or web address] Nurse Practitioner Medical Oncology 04/05/25 Marilu Anderson MBBS [address] [place] [address] [email or web address] Primary Oncologist Hematology and Oncology 05/02/25 Valeri Morales FNP [address] [place] [address] [email or web address] Nurse Practitioner Medical Oncology 05/15/25 Marilu Anderson MBBS [address] [place] [address] [email or web address] Primary Oncologist Hematology and Oncology 05/15/25 documented as of this encounter Additional Source Comments The information contained in this document represents components of the legal health record. It is not the complete legal health record.[facility]
--- OUTSIDE RECORDS SUMMARY | 2025-05-23 13:30 | XMS_ITS | Encounter Summary ---
Author Organization [facility] Address [address] [facility] [address] [place] [address] Phone Care Team Providers Care Store Detective Name Role Phone De Enciso MD Unavailable [phone] Eva Monreal MD Primary Care Provider Aydee Flores [facility] Unavailable Theresa Sweet Unavailable Unavailable Daniel Reed Unavailable [email or web address] Magalis Fong MD Unavailable [phone] Micaela Cobb CNP Unavailable Marilu Anderson Unavailable [phone] Valeri MoralesP Unavailable [phone] Marilu Anderson Unavailable [phone] Reason for Visit * Reason Comments Follow Up Visit Encounter Details Date Type Department Care Team (Late st Contact Info) Description 05/23/2025 1:30 PM EDT Office Visit [facility] [address] [place] [address] Valeri Morales FNP [address] [place] [address] 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); Cellulitis of left lower extremity Social History Tobacco Use Types Packs/Day Years [...] 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 Not on file Not on file documented as of this encounter Last Filed Vital Signs Vital Sign Reading Time Taken Comments Blood Pressure 115/64 05/23/2025 1:25 PM EDT Pulse 99 05/23/2025 1:25 PM EDT Temperature 37.8 C (100 F) 05/23/2025 1:25 PM EDT Respiratory Rate - - Oxygen Saturation 96% 05/23/2025 1:25 PM EDT Inhaled Oxygen Concentration - - Weight 54.8 kg (120 lb 14.4 oz) 05/23/2025 1:22 PM EDT Height - - Body Mass Index 18.54 02/11/2025 3:11 PM EDT documented in this encounter Progress Notes * Valeri Morales, BROADCAST DESIGNER - 05/23/2025 1:30 PM EDT Reason For Visit/Diagnoses: AML Primary Oncologist/Drier Attendant: DYLAN Callaway Current Treatment: Aranesp 200 mcg every 2 weeks Interval Hx/ROS: John Lin is a 70 y.o. female with a history of AML (see below) receiving aranesp as indicated below. She presents today for follow up and clearance of next aranesp injection. She reports she is feeling a little under the weather today. Notes a low grade temp was taken by the medical billing instructor. Denies chills, sweats, chest pain, shortness of breath, changes in bowel or bladder habits. She notes edema in BLE for which she takes lasix PRN. She report she has a skin condition that causes pealing of her skin. She is followed closely by dermatology at [facility]. Of note, patient has history of GI GVHD. Patient states she often picks at pealing skin causing ulcers to form. Reports she noticed her left leg has been red the past few days. Has multiple scabs that have been picked in the same region. Remainder of ROS reviewed, otherwise negative. Oncologic History: Oncology History Overview Note The patient's history dates back to November of 2002 when she was diagnosed with AML with normal cytogenetics. The patient underwent induction chemotherapy per the [facility] 46559 protocol in which she received daunorubicin, cytarabine and etoposide with investigational agent PSC 833, which is an MDR inhibitor. The patient's induction course was complicated by pancolitis, hematochezia, fevers and diffuse rash. The patient did go into remission after induction. She received consolidation with high-dose cytarabine and etoposide. The patient's consolidation course was complicated by fever and syncope. Infectious disease work-up included VATS with wedge resection. Pathology confirmed invasive aspergillosis for which she was treated with voriconazole. In April of 2003, her remission was confirmed and she proceeded to undergo autologous stem cell transplant in May of 2003. The patient tolerated the transplant well and had no complications. She, however, was found to have recurrent disease in March of 2007. She was admitted for reinduction chemotherapy with daunorubicin and cytarabine, which she tolerated well. In June 2007, she underwent a reduced intensity conditioning allogenic stem cell transplant from an unrelated donor. The patient did well until December of 2007 at which point, she was admitted for fever and neutropenia, viral exanthem, pneumonia, and was found to have loss of her graft with chimerism of only 20%. The patient was treated for fungal pneumonia based on her CT chest. No biopsy was done due to severe thrombocytopenia. The patient was discharged home on voriconazole. She underwent a second reduced intensity conditioning allogeneic stem cell transplant from the same donor with her day 0 being 02/13/08. She had a relapse of AML following that transplant and went on to another reduced intensity transplant on 10/04/08. Complications included ARF requiring dialysis, resolved 11/2008, fungal infection, CMV viremia. 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 01/2013 Admitted for pneumonia, incidental finding of RCC, s/p partial nephrectomy. 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 Acute myeloid leukemia 07/06/2007 Initial Diagnosis Acute myeloid leukemia (HCC) Cancer Staging No matching staging information was found for the patient. PFSHx, allergies- unchanged since last seen. Physical Exam: Vitals: 05/23/25 1322 05/23/25 1325 BP: 115/64 BP Location: Left arm Patient Position: Sitting Pulse: 99 Temp: 37.8 ??C (100 ??F) TempSrc: Tympanic SpO2: 96% Weight: 54.8 kg (120 lb 14.4 oz) Physical Exam Skin: General: Skin is warm. Comments: Multiple lesions varying in size on anterior and posterior left lower leg. Quarter size lesion on left ayala with yellow/clear drainage. Skin is warm to touch. No clear delineation of erythema, however erythema covers majority of patients anterior and posterior left lower leg. Meds/Labs/Radiology: Reviewed personally in chart along with patient. ECOG: Performance Status 1- Restricted in physically strenuous activity but ambulatory and able to carry out work of a light or sedentary nature, e.g., light house work, office work A/P: I reviewed the patients lab work from today and shared the results with her. Her WBC is normal. Slightly worsening anemia, however stable overall. PLT are normal, slightly lower than previous results. ANC is normal. Retics are within normal range. Iron studies reveal iron sat of 7, ferritin of 71. I reviewed this case with Dr. Anderson who is recommending the patient receive 1 dose of IV iron. Using conservatively given patients history of iron overload. Plan has been placed and patient has been advised to receive this early next week. Soheilap today as planned. Cellulitis: Reassured by WBC, however given patient feeling unwell and low grade temp, will treat patient for suspected cellulitis of left lower leg. 7 day course of bactrim sent to patients pharmacy. She has follow up scheduled with dermatology on Tuesday and have advised her to have them take a look at her leg. IV iron early next week. Follow up in 2 weeks with CBC, iron, iron binding capacity, ferritin, office visit, real. I personally spent 41 minutes preparing for, caring for the patient (ajne-fp-ysic and yut-gpia-dj-face) and finalizing the visit for this patient. DESHAWN Schuler documented in this encounter Plan of Treatment Upcoming Encounters Date Type Department Care Team (Late st Contact Info) Description 10/31/2024 Procedure Pass Echo Lab [address] [place] [address] 05/27/2025 10:30 AM EDT Office Visit [facility] [address] [place] [address] Lily Cuevas MD [address] [place] [address] [email or web address] 05/30/2025 3:00 PM EDT Appointment Echo Lab [address] [place] [address] Jose Vela DO 22 [facility] [address] [place] [address] 06/07/2025 8:10 AM EDT Appointment [facility] [address] [place] [address] Marilu Anderson MBBS [address] [place] [address] 06/07/2025 9:00 AM EDT Office Visit [facility] at [address] [address] Marilu Anderson [address] [address] 06/07/2025 11:00 AM EDT Infusion [facility] at [address] [address] Marilu Anderson [address] [address] 06/21/2025 9:10 AM EDT Appointment [address] [address] Marilu Anderson [address] [address] 06/21/2025 10:00 AM EDT Office Visit [facility] at [address] [address] Marilu Anderson [address] [address] 06/21/2025 11:40 AM EDT Infusion [facility] at [address] [address] Marilu Anderson [address] [address] 09/11/2025 1:00 PM EST Office Visit [facility] [address]rd Floor, [address] [place] [address] Segun Finnegan MD [address] [place] [address] [email or web address] documented as of this encounter Visit Diagnoses Diagnosis Acute myeloid leukemia in remission- Primary Cellulitis of left lower extremity documented in this encounter Care Teams Store Detective Relationship Specialty Start Date End Date Eva Monreal MD [address] [place] [address] [address] [place] [address] [email or web address] - General Internal Medicine 04/03/19 De Enciso MD [address] [place] [address] Historical LMR Provider 01/16/15 Aydee Flores, [address] [address] [email or web address] Worker Oncology 06/09/21 Theresa Sweet [address] [place] [address] 10/06/22 Daniel Reed [address] [place] [address] [email or web address] Work Counselor 06/21/21 Magalis Fong MD [address] [place] [address] Gastroenterology 09/12/23 Micaela Cobb CNP [address] [place] [address] [email or web address] Nurse Practitioner Medical Oncology 04/05/25 Marilu Anderson MBBS [address] [place] [address] [email or web address] Primary Oncologist Hematology and Oncology 05/02/25 Valeri Morales FNP [address] [place] [address] [email or web address] Nurse Practitioner Medical Oncology 05/15/25 Marilu Anderson MBBS [address] [place] [address] [email or web address] Primary Oncologist Hematology and Oncology 05/15/25 documented as of this encounter Additional Source Comments The information contained in this document represents components of the legal health record. It is not the complete legal health record.[facility]
--- OUTSIDE RECORDS SUMMARY | 2025-05-23 14:40 | XMS_ITS | Encounter Summary ---
Author Organization [facility] Address [address] [address] Phone Care Team Providers Care Meeting/Event Planner Name Role Phone De Enciso MD Unavailable [phone] Eva Monreal MD Primary Care Provider [phone] Aydee Flores [facility] Unavailable Theresa Sweet Unavailable Unavailable Daniel Reed Unavailable [email or web address] Magalis Fong MD Unavailable [phone] Micaela Cobb CNP Unavailable Marilu Anderson Unavailable [phone] Valeri Morales ACETYLENE TORCH OPERATOR Unavailable [phone] Marilu Anderson Unavailable [phone] Reason for Visit * Treatment and Therapy Plan (Routine) - Authorized Specialty Diagnoses / Procedures Referred By Contac t Referred To Contact Diagnoses Anemia associated with chronic renal failure Procedures [place] DARBEPOETIN MARIE, NON-ESRD, 1 MCG darbepoetin marie-polysorbate/aransp (J0881) Ro Estrada NP [address] [place] [address] Phone: tel: fax: mailto:[email or web address] at [address] [address] Phone: tel: fax: Referral ID Status Reason Start Date Expiration Date V isits Requested Visits Authorized [id number] Authorized 01/02/2025 01/02/2085 999 [id number] Encounter Details Date Type Department Care Team (Late st Contact Info) Description 05/23/2025 2:40 PM EDT Infusion [facility] at [address] [address] Marilu Anderson MBBS [address] [place] [address] Debbie Granados RN [address] [place] [address] Anemia associated with chronic renal failure (Primary [...] 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 Aranesp administered sc left arm. Pt. Tolerated well. Pt. Ssopping at checkout for more appts. documented in this encounter Plan of Treatment Upcoming Encounters Date Type Department Care Team (Late st Contact Info) Description 10/31/2024 Procedure Pass Echo Lab [address] [address] 05/27/2025 10:30 AM EDT Office Visit [facility] [address] [address] Lily Cuevas MD [address] [place] [address] [email or web address] 05/30/2025 3:00 PM EDT Appointment Echo Lab [address] [place] [address] Jose Vela DO 22 [facility] [address] [place] [address] 06/07/2025 8:10 AM EDT Appointment [facility] 30 [place] [address] Marilu Anderson MBBS 30 [place] [address] 06/07/2025 9:00 AM EDT Office Visit [facility] at [address] [address] Marilu Anderson [address] [address] 06/07/2025 11:00 AM EDT Infusion [facility] at [address] [address] Marilu Anderson [address] [address] 06/21/2025 9:10 AM EDT Appointment [address] [address] [address] [address] 06/21/2025 10:00 AM EDT Office Visit [facility] at [address] [address] [address]il[address] Anderson [address] [address] 06/21/2025 11:40 AM EDT Infusion [facility] at [address] [address] [address]il[address] [address] 09/11/2025 1:00 PM EST Office Visit [facility] [address] [place] [address] 3rd Floor, [address] [place] [address] Segun Finnegan MD [address] [place] [address] [email or web address] documented as of this encounter Visit Diagnoses Diagnosis Anemia associated with chronic renal failure- Primary Anemia in chronic kidney disease documented in this encounter Administered Medications Inactive Administered Medications - up to 3 most recent administrations Medication Order MAR Action Action Date Dose Rate Site darbepoetin marie-polysorbate (ARANESP) injection syringe 200 mcg 200 mcg, Subcutaneous, Once, On Rupinder 05/23/25 at 1515, For 1 dose, Do NOT Shake. Refrigerate., What is the Erythropoiesis Stimulating Agent (ARNOLDO) being used to treat? Chronic Kidney Disease/End Stage Renal Disease, The ARNOLDO is being used to treat anemia associated with the following stage: IIIIndications:Anemia associated with chronic renal failure Given 05/23/2025 2:47 PM EDT 200 mcg Left Arm documented in this encounter Care Teams Meeting/Event Planner Relationship Specialty Start Date End Date Eva Monreal MD [address] [place] [address] [address] [place] [address] [email or web address] PCP - General Internal Medicine 04/03/19 De Enciso MD [address] [place] [address] Historical LMR Provider 01/16/15 Aydee Flores, [facility] 35 [place] [address] [email or web address] [email or web address] Prosthetics Assistant Oncology 06/09/21 Theresa Sweet 35 [place] [address] 10/06/22 Daniel Reed 35 [place] [address] [email or web address] Cutter 06/21/21 Magalis Fong MD [address] [place] [address] Gastroenterology 09/12/23 Micaela Cobb CNP 30 [place] [address] [email or web address] Nurse Practitioner Medical Oncology 04/05/25 Marilu Anderson MBBS 30 [place] [address] [email or web address] Primary Oncologist Hematology and Oncology 05/02/25 Valeri Morales FNP 30 [place] [address] [email or web address] Nurse Practitioner Medical Oncology 05/15/25 Marilu Anderson MBBS 30 [place] [address] [email or web address] Primary Oncologist Hematology and Oncology 05/15/25 documented as of this encounter Additional Source Comments The information contained in this document represents components of the legal health record. It is not the complete legal health record.[facility]
[2025-05-25] VITALS (13 sets, daily range): BP systolic 99–136; BP diastolic 47–77; PULSE 71–85; RESP 11–18; TEMP 36.3–36.7; O2SAT 95–100; BMI 18.8
--- NOTE | ~2025-05-25 | CT_ITS ---
CLINICAL HISTORY: trauma CT head without contrast Comparison: CT/SR - CT HEAD/BRAIN WO IV CON - 10/19/24 17:39 EST Findings: No intra-axial mass, midline shift, hydrocephalus, or acute hemorrhage. No significant atrophy-like change or white matter disease. Opacification of the posterior left ethmoid air cells and left sphenoid sinus. Paranasal sinuses and mastoid air cells are otherwise clear. The orbits are unremarkable. There is no acute fracture. IMPRESSION: 1. No acute intracranial findings. This document has been electronically signed by: Prachi Michel MD on 05/25/2025 06:16:44
--- OUTSIDE RECORDS SUMMARY | 2025-05-25 01:21 | XMS_ITS | Clinical Summary ---
Author Organization [facility] Address [address] [place] [address] Care Team Providers Care Spreader Operator Automatic Name Role Phone Unavailable Primary Care Provider Unavailabl e Social History Tobacco Use Types Packs/Day Years Used Date Smoking Tobacco: Never Assessed Comments Unknown Sex and Gender Information Value Date Recorded Sex Assigned at Not on file Legal Sex Female 3:05 PM EDT Gender Identity Not on file Sexual Orientation Not on file Plan of Treatment Health Maintenance Due Date Last Done Comments Advance Care Planning 1955 Hepatitis C Virus Screening 1955 DTaP/Tdap/Td Vaccines (1 - Tdap) 1973 Pneumococcal Vaccines 50+ (1 of 1 - PCV) 2004 Zoster (Shingles) Vaccine (1 of 2) 2004 COVID-19 Vaccine ( - 2023-2 5 season) 2025 RSV Vaccine 60 years and old er and Patients (1 - 1-dose 75+ series) 2029 Hepatitis B Vaccines Aged Out No long er eligible based on patient's age to complete this topic
--- OUTSIDE RECORDS SUMMARY | 2025-05-25 01:21 | XMS_ITS | Encounter Summary ---
Author Organization [facility] Address [address] [place] [address] Care Team Providers Care Chief Operating Officer Name Role Phone Eva Monreal Primary Care Provider [phone] Reason for Visit * Reason Onset Date Comments Appointment Rescheduling 02/15/2022 Encounter Details Date Type Department Care Team ([facility] Contact Info) Description 02/15/2022 Telephone [facility] Central Scheduling Department [address] [place] [address] Telephone Intake, Staff Appointment Rescheduling Social History [...] on filedocumented in this encounter Care Teams Chief Operating Officer Relationship Specialty Start Date End Date Eva Monreal [address] [place] [address] PCP - General Internal Medicine 12/12/20 documented as of this encounter
--- OUTSIDE RECORDS SUMMARY | 2025-05-25 01:21 | XMS_ITS | Clinical Summary ---
Author Organization [facility] Address [address] [place] [address] Care Team Providers Care Breaker Oiler Name Role Phone Eva Monreal Primary Care Provider [phone] Allergies Active Allergy Reactions Criticality Noted Date Comments Ceftazidime Rash Low 07/20/2017 Cephalosporins Hives 08/25/2008 skin test pre-pen, pen G, and ceftriaxone on 06/20/2013, were all negative. However, given the low sensitivity of the latter, this patient should be considered cephalosporin (and carbapenem) allergic unless disproved by an special education aide by way of a graded challenge. skin test pre-pen, pen G, and ceftriaxone on 06/20/2013, were all negative. However, given the low sensitivity of the latter, this patient should be considered cephalosporin (and carbapenem) allergic unless disproved by an special education aide by way of a graded challenge. Imipenem-Cilastatin [...] History of peripheral stem cell transplant 06/23 Wclgz-nwnpgz-zcoj disease 03/24/2015 Overview (02/11/2021): IMO update Hypertensive [...] Metabolic Panel 04/07/2023 04/07/2022 , 11/26/2021, 06/22/2021 Alcohol/Substance Use Screening 09/05/2024 Depression Screening and Follow-Up 09/05/2024 Health Care Proxy Review 09/05/2024 Social Drivers of Health Annual Screening 09/05/2024 DTaP,Tdap,and Td Vaccines (4 - Td or Tdap) 04/23/2025 04/23/2015, 10/05/2010, 11/03/2009 COVID-19 Vaccine (5 - 2024- season) 2025 10/15/2021, 04/19/2021, 11/18/2020, Additional history exists Influenza Vaccine (#1) 2025 , 06/07/2020, 07/01/2019, Additional history exists Hepatitis B Vaccines Aged Out No long er eligible based on patient's age to complete this topic Insurance MEDICARE Member Subscriber Plan / Payer (Ef fective 2009-Present) Name:John Lin Member ID:[id number] Relation to Subscriber:Self Name:John Lin Subscriber ID:[id number] Payer ID:[id number] Group ID:Not on file Type:Not on file Address: Verónica ALTAMIRANO [address] [place] [address] [place] [address] Care Teams Breaker Oiler Relationship Specialty Start Date End Date Eva Monreal [address] [place] [address] PCP - General Internal Medicine 12/12/20
--- OUTSIDE RECORDS SUMMARY | 2025-05-25 01:21 | XMS_ITS | Encounter Summary ---
Author Organization [facility] Address 399 [facility] [address] [place] [address] Phone Care Team Providers Care Drafter Cartographic Name Role Phone De nEciso MD Unavailable [phone] Eva Monreal MD Primary Care Provider [phone] Aydee Flores [facility] Unavailable Theresa Sweet Unavailable Unavailable Daniel Reed Unavailable [email or web address] Magalis Fong MD Unavailable [phone] Marilu Anderson Unavailable [phone] Micaela Cobb CNP Unavailable Marilu Anderson Unavailable [phone] Valeri MoralesP Unavailable [phone] Marilu Anderson Unavailable Encounter Details Date Type Department Care Team (Late st Contact Info) Description 06/07/2024 Procedure Pass [facility] [address] [place], [place] [id number] Social History Tobacco Use Types Packs/Day Years [...] 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 Wish to be (Past 1 Month) No 06/07/2024 4:56 AM EDT Tiburcio Eller RN 2. Non-Specific Active Suici jess Thoughts (Past 1 Month) No 06/07/2024 4:[address] fortunato Eller RN 6. Suicidal Behavior (Lifetime) No 4:56 AM EDT Ernesto Eller, RN documented as of this encounter Plan of Treatment Upcoming Encounters Date Type Department Care Team (Late st Contact Info) Description 10/31/2024 Procedure Pass Echo Lab [address] [place] [address] 05/27/2025 10:30 AM EDT Office Visit [facility] [address] [address] Lily Cuevas MD 221 [place] [address] [email or web address] 05/30/2025 3:00 PM EDT Appointment Echo Lab [address] [place] [address] Jose Vela DO 22 [facility] [address] [place] [address] 06/07/2025 8:10 AM EDT Appointment [facility] [address] [place] [address] Mrailu Anderson MBBS [address] [place] [address] 06/07/2025 9:00 AM EDT Office Visit [facility] at [address] [address] Marilu Anderson MBBS [address] [place] [address] 06/07/2025 11:00 AM EDT Infusion [facility] at [address] [address] Marilu Anderson MBBS [address] [place] [address] 06/21/2025 9:10 AM EDT Appointment [facility] [address] [place] [address] Marilu Anderson MB 30 [place] [address] [email or web address] 06/21/2025 10:00 AM EDT Office Visit [facility] at [address] [address] Marilu Anderson [address] [address] 06/21/2025 11:40 AM EDT Infusion [facility] at [address] [address] Marilu Anderson [address] [address] [email or web address] 09/11/2025 1:00 PM EST Office Visit [facility] [address] [place] [address] 3rd Floor, [address] [place] [address] Segun Finnegan MD [address] [place] [address] [email or web address] documented as of this encounter Visit Diagnoses Not on filedocumented in this encounter Additional Health Concerns Infection Onset Date Last Indicated Resolved Time CoV-Risk Comment:Per note documentation 06/06/2024 06/06/2024 1:30 PM EDT documented as of this encounter Care Teams Drafter Cartographic Relationship Specialty Start Date End Date Eva Monreal MD [address] [place] [address] 102 [place] [address] [email or web address] PCP - General Internal Medicine 04/03/19 De Enciso MD [address] [place] [address] Historical LMR Provider 01/16/15 Aydee Flores, [facility] [address] [place] [address] [email or web address] Bridge Operator Oncology 06/09/21 Theresa Sweet [address] [place] [address] 10/06/22 Daniel Reed [address] [place], [place] [email or web address] Patient Accounts Specialist 06/21/21 Magalis Fong MD [address] [place] [address] Gastroenterology 09/12/23 Marilu Anderson MBBS [address] [place] [address] [email or web address] Primary Oncologist Medical Oncology 01/09/25 05/01/25 Micaela Cobb CNP [address] [place] [address] [email or web address] Nurse Practitioner Medical Oncology 04/05/25 Marilu Anderson MBBS [address] [place] [address] [email or web address] Primary Oncologist Hematology and Oncology 05/02/25 Valeri Morales FNP [address] [place] [address] [email or web address] Nurse Practitioner Medical Oncology 05/15/25 Marilu Anderson MBBS 30 [place] [address] Primary Oncologist Hematology and Oncology 05/15/25 documented as of this encounter Additional Source Comments The information contained in this document represents components of the legal health record. It is not the complete legal health record.[facility]
--- OUTSIDE RECORDS SUMMARY | 2025-05-25 01:22 | XMS_ITS | Encounter Summary ---
Author Organization [facility] Address 399 [facility] [address] [place] [address] Phone Care Team Providers Care Epidemiology Investigator Name Role Phone Erwin Gavin MD Primary Care Provider De Jaime MD Unavailable [phone] Brittany Estrella Unavailable [email or web address]. [email or web address] Jeffery MD Unavailable Cheryl Hernandez FOOD AND DRUG RESEARCH SCIENTIST Unavailable [phone] Eva Monreal MD Primary Care Provider Aydee Flores FOOD AND DRUG RESEARCH SCIENTIST Unavailable Theresa Sweet Unavailable Unavailable Daniel Reed Unavailable [email or web address] Magalis Fong MD Unavailable + [phone] Marilu Anderson Unavailable [phone] Micaela Cobb CNP Unavailable Marilu Anderson Unavailable Valeri MoralesP Unavailable [phone] Marilu Anderson Unavailable [phone] Encounter Details Date Type Department Care Team (Late st Contact Info) Description 09/07/2017 Epic[employer]Hand Encounter Division of Hematologic Oncology, [facility] [address] [facility], 8th [place] [address] Ro Estrada NP [address] [address] [email or web address] Social History Tobacco Use Types Packs/Day [...] Info) Description 10/31/2024 Procedure Pass Echo Lab [address] [place] [place] [address] 05/27/2025 10:30 AM EDT Office Visit [facility] [address] [address] Lily Cuevas MD 221 [place] [address] [email or web address] 05/30/2025 3:00 PM EDT Appointment Echo Lab [address] [place] [place] [address] Jose Vela DO 22 [facility] [address] [place] [address] 06/07/2025 8:10 AM EDT Appointment [facility] 30 [place] [address] Marilu Anderson MBBS 30 [place] [address] 06/07/2025 9:00 AM EDT Office Visit [facility] [place] at [address] [address] Marilu Anderson [address] [address] 06/07/2025 11:00 AM EDT Infusion [facility] [place] at [address] [address] Marilu Anderson [address] [address] 06/21/2025 9:10 AM EDT Appointment [address] [address] Marilu Anderson MBBS [address] [place] [address] 06/21/2025 10:00 AM EDT Office Visit [facility] at [address] [address] Marilu Anderson MBBS [address] [place] [address] 06/21/2025 11:40 AM EDT Infusion [facility] [place] at [address] [address] Marilu Anderson MBBS [address] [place] [address] 09/11/2025 1:00 PM EST Office Visit [facility] [address] [place] [address] 3rd Floor, [address] [place] [address] Segun Finnegan MD 50 [place] [address] [email or web address] documented as of this encounter Visit Diagnoses Not on filedocumented in this encounter Additional Health Concerns Infection Onset Date Last Indicated Resolved Time CoV-Risk Comment:Per note documentation 06/06/2024 06/06/2024 1:30 PM EDT documented as of this encounter Care Teams Epidemiology Investigator Relationship Specialty Start Date End Date Erwin Gavin MD PCP - General 03/05/14 04/02/19 Eva Monreal MD [address] [place] [address] 102 [place] [address] [email or web address] PCP - General Internal Medicine 04/03/19 De Enciso MD 450 [place] [address] Historical LMR Provider 01/16/15 Brittany Estrella [address] [place] [address] [email or web address] Clinical Coordinator Resource, Ancillary 02/10/15 06/08/21 Asher Toledo MD 450 [place] [address] [email or web address] Referring Physician Hematology 12/03/15 11/25/21 Cheryl Hernandez, [facility] 35 [place] [address] [email or web address] Therapist Respiratory Oncology 12/05/15 06/08/21 Aydee Flores, [facility] 35 [place] [address] [email or web address] Therapist Respiratory Oncology 06/09/21 Theresa Sweet 35 [place] [address] 10/06/22 Daniel Reed [address] [place] [address] [email or web address] Tape Duplicator 06/21/21 Magalis Fong MD [address] [place] [address] Gastroenterology 09/12/23 Marilu Anderson MBBS [address] [place] [address] [email or web address] Primary Oncologist Medical Oncology 01/09/25 05/01/25 Micaela Cobb CNP [address] [place] [address] Nurse Practitioner Medical Oncology 04/05/25 Marilu Anderson MBBS [address] [place] [address] [email or web address] Primary Oncologist Hematology and Oncology 05/02/25 Valeri Morales FNP [address] [place] [address] [email or web address] Nurse Practitioner Medical Oncology 05/15/25 Marilu Anderson MBBS [address] [place] [address] [email or web address] Primary Oncologist Hematology and Oncology 05/15/25 documented as of this encounter Additional Source Comments The information contained in this document represents components of the legal health record. It is not the complete legal health record.[facility]
--- OUTSIDE RECORDS SUMMARY | 2025-05-25 01:22 | XMS_ITS | Encounter Summary ---
Author Organization [facility] Address [address] [place] [address] Phone Care Team Providers Care Powder Mill Operator Name Role Phone Eva Monreal MD Primary Care Provider [phone] Encounter Details Date Type Department Care Team (Late st Contact Info) Description 02/06/2025 Documentation Only [facility], [address] [place] [address] Lisa ColmenaresSOPER, [place] [address] [place] [address] Social History Tobacco Use Types [...] on filedocumented in this encounter Care Teams Powder Mill Operator Relationship Specialty Start Date End Date Eva Monreal MD [address] [place] [address] PCP - General Internal Medicine 02/06/25 documented as of this encounter
--- OUTSIDE RECORDS SUMMARY | 2025-05-25 01:22 | XMS_ITS | Encounter Summary ---
Author Organization [facility] Address [address] [address] Phone Care Team Providers Care Physician Assistant Psychiatry Name Role Phone Erwin Gavin MD Primary Care Provider De Jaime MD Unavailable [phone] Brittany Estrella Unavailable [email or web address]. [email or web address] Jeffery MD Unavailable [phone] Cheryl Hernandez SUPERVISOR CELL OPERATION Unavailable [phone] Eva Monreal MD Primary Care Provider [phone] Aydee Flores SUPERVISOR CELL OPERATION Unavailable Theresa Sweet Unavailable Unavailable Daniel Reed Unavailable [email or web address] Magalis Fong MD Unavailable + [phone] Marilu Anderson Unavailable [phone] Micaela Cobb CNP Unavailable Marilu Anderson Unavailable [phone] Valeri MoralesP Unavailable [phone] Marilu Anderson Unavailable [phone] Reason for Referral * Physical Therapy (Routine) - Closed Specialty Diagnoses / Procedures Referred By Contac t Referred To Contact Physical Therapy Diagnoses Encounter for rehabilitation fecal incontinence Procedures physical therapy System, Provider Not In, PhD [facility] [address] [place] [address] [facility] [address] [place] [address] Phone: tel: Referral ID Status Reason Start Date Expiration Date Visits Re quested Visits Authorized [id number] Closed 02/17/2018 02/17/2019 99 99 Encounter Details Date Type Department Care Team (Latest Contact Info) Description 02/17/2018 Transcribe Orders [facility] [address] [place] [address] Gloria Shepherd PA-C [address] [place] [phone] Encounter for rehabilitation (Primary Dx) Social History [...] Info) Description 10/31/2024 Procedure Pass Echo Lab [address] [place] [address] 05/27/2025 10:30 AM EDT Office Visit [facility] [address] [place] [address] Lily Cuevas MD [address] [place] [address] [email or web address] 05/30/2025 3:00 PM EDT Appointment Echo Lab [address] [address] Jose Vela DO 22 [facility] [address] [place] [address] 06/07/2025 8:10 AM EDT Appointment [facility] [address] [place] [address] Marilu Anderson MBBS [address] [place] [address] 06/07/2025 9:00 AM EDT Office Visit [facility] at [address] [address] Marilu Anderson MBBS [address] [place] [address] 06/07/2025 11:00 AM EDT Infusion [facility] at [address] [address] Marilu Anderson MBBS [address] [place] [address] 06/21/2025 9:10 AM EDT Appointment [facility] [address] [place] [address] Marilu Anderson MBBS [address] [place] [address] 06/21/2025 10:00 AM EDT Office Visit [facility] Center at [address] [address] Marilu Anderson MBBS [address] [place] [address] [email or web address] 06/21/2025 11:40 AM EDT Infusion [facility] [address] [place] [address] Marilu Anderson MBBS [address] [place] [address] 09/11/2025 1:00 PM EST Office Visit [facility] [address] [place] [address] 3rd Floor, [address] [place] [address] Segun Finnegan MD [address] [place] [address] [email or web address] documented as of this encounter Procedures Procedure Name Priority Date/Time Associated Diagnosis Comments AMB REFERRAL TO [facility] Routine 03/02/2018 12:17 PM EDT Encounter for rehabilitation documented in this encounter Results * Ambulatory referral to [facility] Physical Therapy (03/02/2018 12:17 PM EDT) us Provider Not In System PhD AMB [facility] RE[facility] Fin al Result documented in this encounter Visit Diagnoses Diagnosis Encounter for rehabilitation- Primary documented in this encounter Additional Health Concerns Infection Onset Date Last Indicated Resolved Time CoV-Risk Comment:Per note documentation 06/06/2024 06/06/2024 1:30 PM EDT documented as of this encounter Care Teams Physician Assistant Psychiatry Relationship Specialty Start Date End Date Erwin Gavin MD PCP - General 03/05/14 04/02/19 Eva Monreal MD 300 [facility] [address] [place] [address] [email or web address] PCP - General Internal Medicine 04/03/19 De Enciso MD [address] [place] [address] Historical LMR Provider 01/16/15 Brittany Estrella [address] [place] [address] [email or web address] [email or web address] Clinical Coordinator Resource, Ancillary 02/10/15 06/08/21 Asher Toledo MD [address] [place] [address] [email or web address] Referring Physician Hematology 12/03/15 11/25/21 Cheryl Hernandez, [address] [address] [email or web address]++ Quant Developer Oncology 12/05/15 06/08/21 Aydee Flores, [address] [address] [email or web address]++ Quant Developer Oncology 06/09/21 Theresa Sweet [address] [place] [address] 10/06/22 Daniel Reed [address] [place] [address] [email or web address] 06/21/21 Magalis Fong MD [address] [place] [address] Gastroenterology 09/12/23 Marilu Anderson MBBS [address] [place] [address] [email or web address] Primary Oncologist Medical Oncology 01/09/25 05/01/25 Micaela Cobb CNP [address] [place] [address] Nurse Practitioner Medical Oncology 04/05/25 Marilu Anderson MBBS [address] [place] [address] [email or web address] Primary Oncologist Hematology and Oncology 05/02/25 Valeri Morales FNP [address] [place] [address] [email or web address] Nurse Practitioner Medical Oncology 05/15/25 Marilu Anderson MBBS [address] [place] [address] [email or web address] Primary Oncologist Hematology and Oncology 05/15/25 documented as of this encounter Additional Source Comments The information contained in this document represents components of the legal health record. It is not the complete legal health record.[facility]
--- OUTSIDE RECORDS SUMMARY | 2025-05-25 01:22 | XMS_ITS ---
Author Organization [facility] Address [address] [place] [address] Phone Care Team Providers Care Black Top Roller Name Role Phone De Enciso MD Unavailable [phone] Eva Monreal MD Primary Care Provider [phone] Aydee Flores [facility] Unavailable Theresa Sweet Unavailable Unavailable Daniel Reed Unavailable [email or web address] Magalis Fong MD Unavailable [phone] Micaela Cobb CNP Unavailable Marilu Anderson Unavailable Valeri Morales FOOD SERVICE MANAGER Unavailable [phone] Marilu Anderson Unavailable Active Problems Problem Noted Date Diagnosed [...] amiodarone Acute on chronic diastolic heart failure Assessment & Plan (07/17/2024 12:05 PM EST): [...] a history of anemia and follows with [facility] for injections. Patient has previously discussed [...] Yes Rationale for seeking non-pharmacological alternative to assistant terminal manager OAC (select all that apply): History of [...] used to structure this shared decision-making interaction. 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 Other Current Plans [facility] PHOTOPHERESIS* Plan Start Date:02/07/2015 Plan Provider:Cosme Rae MD Linked Problems Klqcj-kklwse-tfre disease Treatment Medications No medications scheduled. DARBEPOETIN ALPHA?(ARANESP)* Plan Start Date:01/02/2025 Plan Provider:Marilu Andersno MBBS Linked Problems Anemia associated with chron ic renal failure Treatment Medications No medications scheduled. FERUMOXYTOL (FERAHEME)* Plan Start Date:05/23/2025 Plan Provider:Valeri Morales FNP Linked Problems Anemia associated with chron ic renal failure Treatment Medications No medications scheduled. 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
--- OUTSIDE RECORDS SUMMARY | 2025-05-25 01:22 | XMS_ITS | Clinical Summary ---
Author Organization [facility] 299 [facility] Address [address] [place] [address] Phone Care Team Providers Care Principal Accounts Clerk Name Role Phone Eva Monreal MD Primary Care Provider [phone] Allergies Active Allergy Reactions Criticality Noted Date Comments Lisinopril 12/20/2024 Penicillins 12/20/2024 Medications linaCLOtide (Linzess) 290 mcg capsuleIndicatio ns:Slow transit constipation Take 1 capsule (290 mcg total) by mouth 1 (one) time each day before breakfast. 30 each 11 5 02/09/20 26 Active Additional Information Patient not taking.Reported on 05/14/2025 linaCLOtide (Linzess) 290 mcg capsuleIndicatio ns:Slow transit constipation Take 1 capsule (290 mcg total) by mouth 1 (one) time each day before breakfast. 30 each 11 5 02/09/20 26 Active Additional Information Patient not taking.Reported on 05/14/2025 acetaminophen (TYLENOL) 500 mg tablet Take 2 tablets (1,000 mg total) by mouth. Active aspirin 81 mg EC tablet Take 1 tablet (81 mg total) by mouth 1 (one) time each day. 5 Active oxyCODONE (OXY-IR) 5 mg immediate release capsule Take 2 capsules (10 mg total) by mouth. 1 Active gabapentin (NEURONTIN) 300 mg capsule Take 2 capsules (600 mg total) by mouth 3 times daily. [address] (ENTOCORT EC) 3 mg 24 hr capsule Take 3 capsules (9 mg total) by mouth 1 (one) time each day in the morning. Active lamoTRIgine (LaMICtal) 25 mg tablet Take 1 tablet (25 mg total) by mouth. 5 Active famotidine (PEPCID) 20 mg tablet Take 1 tablet (20 mg total) by mouth 2 (two) times a day. Active folic acid (FOLVITE) 1 mg tablet Take 1 tablet (1,000 mcg total) by mouth 1 (one) time each day. Active levothyroxine (SYNTHROID, LEVOTHROID) 112 mcg tablet Take 1 tablet (112 mcg total) by mouth 1 (one) time each day. Active levoFLOXacin (LEVAQUIN) 750 mg tablet TAKE 1 TABLET (750 MG TOTAL) BY MOUTH EVERY OTHER DAY FOR 6 DAYS. Active furosemide (LASIX) 20 mg tablet Take 1 tablet (20 mg total) by mouth 1 (one) time each day. Active fluorouraciL (EFUDEX) 5 % cream APPLY TO THE FOREHEAD, LEFT CHEEK AND LOWER LEGS TWICE DAILY FOR 2 WEEKS 4 Active Jardiance 10 mg tablet Take 1 tablet (10 mg total) by mouth 1 (one) time each day. Active doxepin (ZONALON) 5 % cream APPLY TOPICALLY 3 (THREE) TIMES A DAY. APPLY TO SHOULDER NEEDED FOR ITCHING Active dexAMETHasone 0.1 mg/mL solution 5 mL (0.5 mg total) 3 times daily. 4 Active clopidogreL (PLAVIX) 75 mg tablet Take 1 tablet (75 mg total) by mouth 1 (one) time each day. 5 Active ciclopirox (PENLAC) 8 % solution Apply topically daily. 4 Active clindamycin (CLEOCIN) 300 mg capsule Active Active Problems Problem Noted Date Diagnosed Date Anxiety 05/07/2025 Collagenous colitis 05/07/2025 GERD (gastroesophageal reflux disease) 5 Bone marrow transplant status ([facility] V24, [facility] V28) 05/07/2025 Post herpetic neuralgia 05/07/2025 Acute on chronic diastolic h eart failure ([facility] V24, [facility] V28) 06/07/2024 Acute kidney injury ([facility] V24) 06/06/2024 Pneumonia of right upper lobe due to infectious organism 04/22/2024 Paroxysmal atrial fibrillation ([facility] V24, [facility] V28) 04/06/2024 Overview (05/07/2025): She is symptomatic from her atrial fibrillation we will get her an expedited Anemia associated with chronic renal failure Incontinence of feces 09/23/2021 Peripheral neuropathy due to chemotherapy ([facility] V24) 05/03/2017 History of peripheral stem c ell transplant ([facility] V24, [facility] V28) 06/23/2015 Ptonm-lrrlhx-odje disease ([facility] V24, [facility] V28) 03/24/2015 Overview (05/07/2025): IMO update Hypertensive disorder 04/13/2012 Overview (05/07/2025): Hypertensive disorder Cytomegalovirus infection ([facility] V24, [facility] V28) 02/27/2008 Overview (05/07/2025): Cytomegalovirus infection; Viral load positive; 1999 Hypertriglyceridemia 02/27/2008 Overview (05/07/2025): Hypertriglyceridemia Acromioclavicular separation 07/08/2007 Overview (05/07/2025): Acromioclavicular separation; Right; with subluxation of the acromion 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 Depressive disorder 07/06/2007 Overview (05/07/2025): Depression; at least since 2002 Thyroid nodule 07/06/2007 Overview (05/07/2025): Thyroid nodule; cystic. Known since before 2002 Obsessive-compulsive disorder 07/06/2007 Overview (05/07/2025): Obsessive compulsive disorder; at least since 2002 Encounters Date Type Department Care Team Description 05/14/2025 2:40 PM EDT Office Visit Gastroenterology - [address] [place] [id number] Magalis Fong MD Constipation by delayed colonic transit (Primary Dx) 05/14/2025 Telephone Gastroenterology - [address] [phone] Aleshia Sherwood [place] 05/10/2025 12:57 PM EDT - 05/10/2025 11:59 PM EDT Hospital Encounter [facility] Xray [address] [place] [phone] Slow transit constipation Discharge Disposition: Home or Self Care 04/08/2025 Telephone Gastroenterology - [address] [phone] Magalis Fong MD from Last 3 Months Surgical History Surgery Date Site/Laterality Comments SECTION x 3 COLONOSCOPY W/ BIOPSIES 11/03/2023 TA x 1, collagenous colitis COLONOSCOPY 09/05/2014 - 09/04/2015 Normal KIDNEY SURGERY 09/05/2012 - 09/04/2013 Medical History Medical History Date Comments AML (acute myeloblastic leuk emia) ([facility] V24, [facility] V28) Status post BMT Depression OCD (obsessive compulsive disorder) History of cytomegalovirus infection 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) ([facility] V24, [facility] V28) History of pneumonia Neuropathy due to herpes zoster Atrial fibrillation ([facility] V24, [facility] V28) Status post cardioversion Collagenous colitis Social History Tobacco Use Types Packs/Day Years Used Date Smoking Tobacco: Never Smokeless Tobacco: Never Tobacco Cessation:Counseling Given: Not Answered Alcohol Use Standard Drinks/Week Comments Yes 0 (1 standard drink = 0.6 oz pur e alcohol) rare Comments Unknown Sex and Gender Information Value Date Recorded Sex Assigned at Female 07/04/2024 2:08 PM EDT Legal Sex Female 8:29 PM EST Gender Identity Female 07/04/2024 2:08 PM EDT Sexual Orientation Straight 07/04/2024 2: 08 PM EDT Obstetrics History Last Filed Vital Signs Vital Sign Reading Time Taken Comments Blood Pressure 130/70 02/24/2023 1:33 PM EDT Sitting R Arm Pulse - - Temperature - - Respiratory Rate - - Oxygen Saturation - - Inhaled Oxygen Concentration - - Weight 52.5 kg (115 lb 12.8 oz) 05/14/2025 3:00 PM EDT Height 170.2 cm (5' 7 ) 05/14/2025 3:00 PM EDT Body Mass Index 18.14 05/14/2025 3:00 PM EDT Plan of Treatment Health Maintenance [...] history exists Hypertension/CHF/CAD Annual BMP Blood Test 05/09/2026 05/09/2025, 04/22/2025, 04/08/2025, Additional history exists Cholesterol Screening (Lipid Panel) [...] Diagnosis Comments XR ABDOMEN 1 VIEW Routine 05/10/2025 1:0 9 PM EDT Slow transit constipation EXTERNAL COLONOSCOPY REPORT Routine 02/08/2025 9:48 AM EDT from Last 3 Months or Most Recently Relevant to Health Maintenance Results * XR Abdomen 1 View (05/10/2025 1:09 PM EDT) Anatomical Region Laterality Modality Body Radiographic Mallory ging 05/13/2025 11:3 6 AM EDT Impressions 05/13/2025 11:37 AM EDT Nonobstructive bowel gas pattern. Severe constipation, similar in appearance to 12/20/2024. A hiatal hernia is again noted. Code 95657 -------- FINAL REPORT -------- Dictated By: Burke Ramos Dictated Date: 05/13/2025 11:36 ET Assigned Physician: Burke Ramos Reviewed and Electronically Signed By: Burke Ramos Signed Date: 05/13/2025 11:37 ET Workstation ID: [id number] Transcribed By: Self Edit Transcribed Date: 05/13/2025 11:36 ET Narrative 05/13/2025 11:37 AM EDT HISTORY: The patient is a 70-year-old female with fecal incontinence. FINDINGS: Supine radiographs of the abdomen demonstrate dextroscoliosis of the thoracolumbar spine as also seen on the prior study performed 12/20/2024. The bowel gas pattern is nonobstructive. Again seen is a large amount of fecal material throughout the colon from the cecum to the rectum consistent with severe constipation. No mass or radiopaque calculus is seen. A hiatal hernia is again seen, as definitively demonstrated on CT scan of the abdomen and pelvis performed 02/07/2025. Procedure Note Burke Ramos MD - 05/13/2025 HISTORY: The patient is a 70-year-old female with fecal incontinence. FINDINGS: Supine radiographs of the abdomen demonstrate dextroscoliosis ofthe thoracolumbar spine as also seen on the prior study performed12/20/2024. The bowel gas pattern is nonobstructive. Again seen is alarge amount of fecal material throughout the colon from the cecum to therectum consistent with severe constipation. No mass or radiopaquecalculus is seen. A hiatal hernia is again seen, as definitively demonstrated on CT scan ofthe abdomen and pelvis performed 02/07/2025. IMPRESSION: Nonobstructive bowel gas pattern. Severe constipation, similar inappearance to 12/20/2024. A hiatal hernia is again noted. Code 09881 -------- FINAL REPORT -------- Dictated By: Burke Ramos Dictated Date: 05/13/2025 11:36 ET Assigned Physician: Burke Ramos Reviewed and Electronically Signed By: Burke Ramos Signed Date: 05/13/2025 11:37 ET Workstation ID: [id number] Transcribed By: Self Edit Transcribed Date: 05/13/2025 11:36 ET Magalis Fong MD IMG XR PROCEDURES Final Result * External Colonoscopy Report (02/08/2025 9:48 AM EDT) Anatomical Region Laterality Modality Endoscopy Historical Provider GI~PROCEDURE ORDERABLES F inal Result from Last 3 Months or Most Recently Relevant to Health Maintenance Insurance MEDICARE [place]ICA[place] - [place] Care Teams Principal Accounts Clerk Relationship Specialty Start Date End Date Eva Monreal MD [address] [place] [address] PCP - General 10/26/22
--- OUTSIDE RECORDS SUMMARY | 2025-05-25 01:22 | XMS_ITS | Encounter Summary ---
Author Organization [facility] Address [address] [place] [address] Care Team Providers Care Vascular Neurologist Name Role Phone Eva Monreal Primary Care Provider [phone] Encounter Details Date Type Department Care Team (Late st Contact Info) Description 04/12/2022 Telephone [facility] Central Scheduling Department [address] [place] [address] Telephone Intake, Staff Social History Tobacco Use [...] on filedocumented in this encounter Care Teams Vascular Neurologist Relationship Specialty Start Date End Date Eva Monreal [address] [place] [address] PCP - General Internal Medicine 12/12/20 documented as of this encounter
--- OUTSIDE RECORDS SUMMARY | 2025-05-25 01:22 | XMS_ITS | Encounter Summary ---
Author Organization [facility] Address [address] [facility] [address] [place] [address] Phone Care Team Providers Care Handle And Vent Machine Operator Name Role Phone Erwin Gavin MD Primary Care Provider De Jaime MD Unavailable [phone] Brittany Estrella Unavailable [email or web address]. Asher Jeffery MD Unavailable Cheryl Hernandez WIRE TINNER Unavailable [phone] Eva Monreal MD Primary Care Provider Aydee Flores WIRE TINNER Unavailable Theresa Sweet Unavailable Unavailable Daniel Reed Unavailable [email or web address] Magalis Fong MD Unavailable + [phone] Marilu Anderson Unavailable Micaela Cobb CNP Unavailable Marilu Anderson Unavailable [phone] Valeri MoralesP Unavailable [phone] Marilu Anderson Unavailable [phone] Encounter Details Date Type Department Care Team (Late st Contact Info) Description 10/16/2016 EpicOnHand Encounter Division of Hematologic Oncology, [facility] [address] [facility], 8th [place] [address] Ro Estrada NP [address] [address] [email or web address] Social History Tobacco Use Types Packs/Day [...] Info) Description 10/31/2024 Procedure Pass Echo Lab [address] [place] [address] 05/27/2025 10:30 AM EDT Office Visit [facility] [address] [facility] 1st [place] [address] Lily Cuevas MD 221 [place] [address] [email or web address] 05/30/2025 3:00 PM EDT Appointment Echo Lab [address] [place] [address] Jose Vela DO 22 [facility] [address] [place] [address] 06/07/2025 8:10 AM EDT Appointment [facility] 30 [place] [address] Marilu Anderson MBBS 30 [place] [address] 06/07/2025 9:00 AM EDT Office Visit [facility] at [address] [address] [address] [address] 06/07/2025 11:00 AM EDT Infusion [facility] at [address] [address] Maril[address] Anderson [address] [address] 06/21/2025 9:10 AM EDT Appointment [address] [address] Marilu Anderson MBBS [address] [place] [address] 06/21/2025 10:00 AM EDT Office Visit [facility] at [address] [address] Marilu Anderson MBBS [address] [place] [address] 06/21/2025 11:40 AM EDT Infusion [facility] [place] at [address] [address] Marilu Anderson MBBS [address] [place] [address] 09/11/2025 1:00 PM EST Office Visit [facility] [address] [place] [address] 3rd Floor, [address] [place] [address] Segun Finnegan MD 50 [place] [address] [email or web address] documented as of this encounter Visit Diagnoses Not on filedocumented in this encounter Additional Health Concerns Infection Onset Date Last Indicated Resolved Time CoV-Risk Comment:Per note documentation 06/06/2024 06/06/2024 1:30 PM EDT documented as of this encounter Care Teams Handle And Vent Machine Operator Relationship Specialty Start Date End Date Erwin Gavin MD PCP - General 03/05/14 04/02/19 Eva Monreal MD [address] [place] [address] [email or web address] PCP - General Internal Medicine 04/03/19 De Enciso MD 450 [place] [address] Historical LMR Provider 01/16/15 Brittany Estrella 450 [place] [address] [email or web address] Clinical Coordinator Resource, Ancillary 02/10/15 06/08/21 Asher [place] MD 450 [place] [address] [email or web address] Referring Physician Hematology 12/03/15 11/25/21 Cheryl Hernandez, [facility] 35 [place] [address] [email or web address], [facility] Rn Eligibility Oncology 12/05/15 06/08/21 Aydee Flores, [facility] [address] [place] [address] [email or web address] Rn Eligibility Oncology 06/09/21 Theresa Sweet 35 [place] [address] 10/06/22 Daniel Reed [address] [place] [address] [email or web address] Inspector Multifocal Lens 06/21/21 Magalis Fong MD [address] [place] [address] Gastroenterology 09/12/23 Marilu Anderson MBBS [address] [place] [address] [email or web address] Primary Oncologist Medical Oncology 01/09/25 05/01/25 Micaela Cobb CNP [address] [place] [address] [email or web address] Nurse Practitioner Medical Oncology 04/05/25 Marilu Anderson MBBS [address] [place] [address] [email or web address] Primary Oncologist Hematology and Oncology 05/02/25 Valeri Morales FNP [address] [place] [address] [email or web address] Nurse Practitioner Medical Oncology 05/15/25 Marilu Anderson MBBS [address] [place] [address] [email or web address] Primary Oncologist Hematology and Oncology 05/15/25 documented as of this encounter Additional Source Comments The information contained in this document represents components of the legal health record. It is not the complete legal health record.[facility]
--- OUTSIDE RECORDS SUMMARY | 2025-05-25 01:22 | XMS_ITS | Encounter Summary ---
Author Organization [facility] Address [address] [facility] [address] [place] [address] Phone Care Team Providers Care Doubler Helper Name Role Phone De Enciso MD Unavailable [phone] Eva Monreal MD Primary Care Provider Aydee Flores [facility] Unavailable Theresa Sweet Unavailable Unavailable Daniel Reed Unavailable Itz [email or web address] Magalis Fong MD Unavailable [phone] Marilu Anderson Unavailable Micaela Cobb CNP Unavailable Marilu Anderson Unavailable Valeri MoralesP Unavailable Marilu Anderson Unavailable [phone] Encounter Details Date Type Department Care Team (Late st Contact Info) Description 02/20/2025 Telephone [facility] [address] [address] Natalie Nichols, [place] 15 [place] [address] [email or web address] Social History Tobacco Use Types Packs/Day Years [...] 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 05/30/2025 3:00 PM EDT Appointment Echo Lab [address] [place] [address] Jose Vela DO [address] [facility] [address] [place] [address] 06/07/2025 8:10 AM EDT Appointment [facility] [address] [place] [address] Mairlu Anderson MBBS [address] [place] [address] 06/07/2025 9:00 AM EDT Office Visit [facility] at [address] [address] Marilu Anderson [address] [address] 06/07/2025 11:00 AM EDT Infusion [facility] at [address] [address] Marilu Anderson MBBS [address] [place] [address] 06/21/2025 9:10 AM EDT Appointment [facility] [address] [place] [address] Marilu Anderson MBBS [address] [place] [address] 06/21/2025 10:00 AM EDT Office Visit [facility] at [address] [address] Marilu Anderson MBBS [address] [place] [address] 06/21/2025 11:40 AM EDT Infusion [facility] 30 [place] [address] Marilu Anderson MBBS 30 [place] [address] 09/11/2025 1:00 PM EST Office Visit [facility] 22 [facility] 3rd Floor, [address] [place] [address] Segun Finnegan MD 50 [place] [address] documented as of this encounter Visit Diagnoses Not on filedocumented in this encounter Care Teams Doubler Helper Relationship Specialty Start Date End Date Eva Monreal MD [address] [place] [address] 102 [place] [address] [email or web address] PCP - General Internal Medicine 04/03/19 De Enciso MD [address] [place] [address] Historical LMR Provider 01/16/15 Aydee Flores, [facility] 35 [place] [address] [email or web address] Kettle Room Helper Oncology 06/09/21 Theresa Sweet 35 [place] [address] 10/06/22 Daniel Reed 35 [place] [address] [email or web address] Automatic Serging Machine Operator 06/21/21 Magalis Fong MD [address] [place] [address] Gastroenterology 09/12/23 Marilu Anderson MBBS 30 [place] [address] [email or web address] Primary Oncologist Medical Oncology 01/09/25 05/01/25 Miceala Cobb CNP 30 [place] [address] [email or web address] Nurse Practitioner Medical Oncology 04/05/25 Marilu Anderson MBBS 30 [place] [address] [email or web address] Primary Oncologist Hematology and Oncology 05/02/25 Valeri Morales FNP 30 [place] [address] [email or web address] Nurse Practitioner Medical Oncology 05/15/25 Marilu Anderson MBBS 30 [place] [address] [email or web address] Primary Oncologist Hematology and Oncology 05/15/25 documented as of this encounter Additional Source Comments The information contained in this document represents components of the legal health record. It is not the complete legal health record.[facility]
--- OUTSIDE RECORDS SUMMARY | 2025-05-25 01:22 | XMS_ITS | Clinical Summary ---
Author Organization [facility] Address [address] [place] [address] Phone Care Team Providers Care Manufacturing Plant Manager Name Role Phone Eva Monreal MD Primary Care Provider [phone] Allergies Active Allergy Reactions Criticality Noted Date [...] (and carbapenem) allergic unless disproved by an motion picture camera operator by way of a graded challenge. skin test pre-pen, pen G, and ceftriaxone on 06/20/2013, were all negative. However, given the low sensitivity of the latter, this patient should be considered cephalosporin (and carbapenem) allergic unless disproved by an motion picture camera operator by way of a graded challenge. skin test pre-pen, pen G, and ceftriaxone on 06/20/2013, were all negative. However, given the low sensitivity of the latter, this patient should be considered cephalosporin (and carbapenem) allergic unless disproved by an motion picture camera operator by way of a graded challenge. skin test pre-pen, pen G, and ceftriaxone on 06/20/2013, were all negative. However, given the low sensitivity of the latter, this patient should be considered cephalosporin (and carbapenem) allergic unless disproved by an motion picture camera operator by way of a graded challenge. skin test pre-pen, pen G, and ceftriaxone on 06/20/2013, were all negative. However, given the low sensitivity of the latter, this patient should be considered cephalosporin (and carbapenem) allergic unless disproved by an motion picture camera operator by way of a graded challenge. skin test pre-pen, pen G, and ceftriaxone on 06/20/2013, were all negative. However, given the low sensitivity of the latter, this patient should be considered cephalosporin (and carbapenem) allergic unless disproved by an motion picture camera operator by way of a graded challenge. skin test pre-pen, pen G, and ceftriaxone on 06/20/2013, were all negative. However, given the low sensitivity of the latter, this patient should be considered cephalosporin (and carbapenem) allergic unless disproved by an motion picture camera operator by way of a graded challenge. skin test pre-pen, pen G, and ceftriaxone on 06/20/2013, were all negative. However, given the low sensitivity of the latter, this patient should be considered cephalosporin (and carbapenem) allergic unless disproved by an motion picture camera operator by way of a graded challenge. [...] in the evening. 8 Active nystatin (MYCOSTATIN) 371367 UNIT/ML suspension SWISH AND SPIT WITH 5 [...] Hypertensive disorder 04/13/2012 Overview (02/08/2025): Hypertensive disorder Immunizations Immunization Administration Dates Next Due HiB [...] topic Insurance Medicare Medicaid [place] Care Teams Manufacturing Plant Manager Relationship Specialty Start Date End Date Eva Monreal MD [address] [place] [address] PCP - General Internal Medicine 02/06/25
--- OUTSIDE RECORDS SUMMARY | 2025-05-25 01:22 | XMS_ITS | Encounter Summary ---
Author Organization [facility] Address [address] [facility] [address] [place] [address] Phone Care Team Providers Care Physician Recruiter Name Role Phone De Enciso MD Unavailable [phone] Eva Monreal MD Primary Care Provider [phone] Aydee Flores [facility] Unavailable Theresa Sweet Unavailable Unavailable Daniel Reed Unavailable Itz [email or web address] Magalis Fong MD Unavailable [phone] Marilu Anderson Unavailable [phone] Micaela Cobb CNP Unavailable Marilu Anderson Unavailable [phone] Valeri MoralesP Unavailable Marilu Anderson Unavailable [phone] Encounter Details Date Type Department Care Team (Late st Contact Info) Description 02/21/2025 Telephone [facility] [address] [facility] 3rd Floor, [address] [place] [address] Segun Finnegan MD 50 [place] [address] Social History Tobacco Use Types Packs/Day Years [...] 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 documented in this encounter Plan of Treatment Upcoming Encounters Date Type Department Care Team (Late st Contact Info) Description 10/31/2024 Procedure Pass Echo Lab [address] [place] [address] 05/27/2025 10:30 AM EDT Office Visit [facility] [address] [place] [address] Lily Cuevas MD [address] [place] [address] [email or web address] 05/30/2025 3:00 PM EDT Appointment Echo Lab [address] [place] [address] Jose Vela, 22 [facility] [address] [place] [address] 06/07/2025 8:10 AM EDT Appointment [facility] [address] [place] [address] Marilu Anderson MBBS [address] [place] [address] 06/07/2025 9:00 AM EDT Office Visit [facility] [place] 30 [place] [address] Marilu Anderson MBBS 30 [place] [address] 06/07/2025 11:00 AM EDT Infusion [facility] at [address] [address] Marilu Anderson [address] [address] 06/21/2025 9:10 AM EDT Appointment [facility] [address] [place] [address] Marilu Anderson MBBS [address] [place] [address] 06/21/2025 10:00 AM EDT Office Visit [facility] at [address] [address] Marilu Anderson MBBS [address] [place] [address] 06/21/2025 11:40 AM EDT Infusion [facility] at [address] [address] Marilu Anderson [address] [address] 09/11/2025 1:00 PM EST Office Visit [facility] [address] [place] [address] 3rd Floor, [address] [place] [address] Segun Finnegan MD [address] [place] [address] documented as of this encounter Visit Diagnoses Not on filedocumented in this encounter Care Teams Physician Recruiter Relationship Specialty Start Date End Date Eva Monreal MD [address] [place] [address] [email or web address] PCP - General Internal Medicine 04/03/19 De Enciso MD [address] [place] [address] Historical LMR Provider 01/16/15 Aydee Flores, [facility] 35 [place] [address] [email or web address] Engineering Patternmaker Oncology 06/09/21 Theresa Sweet 35 [place] [address] 10/06/22 Daniel Reed [address] [place] [address] [email or web address] Instructional Leader 06/21/21 Magalis Fong MD [address] [place] [address] Gastroenterology 09/12/23 Marilu Anderson MBBS [address] [place] [address] [email or web address] Primary Oncologist Medical Oncology 01/09/25 05/01/25 Micaela Cobb CNP [address] [place] [address] [email or web address] Nurse Practitioner Medical Oncology 04/05/25 Marilu Anderson MBBS [address] [place] [address] [email or web address] Primary Oncologist Hematology and Oncology 05/02/25 Valeri Morales FNP [address] [place] [address] [email or web address] Nurse Practitioner Medical Oncology 05/15/25 Marilu Anderson MBBS [address] [place] [address] [email or web address] Primary Oncologist Hematology and Oncology 05/15/25 documented as of this encounter Additional Source Comments The information contained in this document represents components of the legal health record. It is not the complete legal health record.[facility]
--- OUTSIDE RECORDS SUMMARY | 2025-05-25 01:22 | XMS_ITS | Encounter Summary ---
Author Organization [facility] Address [address] [facility] [address] [place] [address] Phone Care Team Providers Care Interactive Marketing Strategist Name Role Phone De Enicso MD Unavailable [phone] Eva Monreal MD Primary Care Provider Aydee lFores [facility] Unavailable Theresa Sweet Unavailable Unavailable Daniel Reed Unavailable Itz [email or web address] Magalis Fong MD Unavailable [phone] Marilu Anderson Unavailable Micaela Cobb CNP Unavailable Marilu Anderson Unavailable [phone] Valeri MoralesP Unavailable Marilu Anderson Unavailable [phone] Reason for Visit * Reason Comments Medication Refill Encounter Details Date Type Department Care Team (Late st Contact Info) Description 11/20/2023 Refill Oral Medicine, [facility] [place] [address] [facility], 11th [place] [address] Dee Cordero [address] [place] [address] [email or web address] Medication Refill Social History Tobacco Use Types [...] 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 Not on file documented as of this encounter Plan of Treatment Upcoming Encounters Date Type Department Care Team (Late st Contact Info) Description 10/31/2024 Procedure Pass Echo Lab [address] [place] [address] 05/27/2025 10:30 AM EDT Office Visit [facility] [address] [place] [address] Lily Cuevas MD [address] [place] [address] [email or web address] 05/30/2025 3:00 PM EDT Appointment Echo Lab [address] [place] [address] Jose Vela DO 22 [facility] [address] [place] [address] 06/07/2025 8:10 AM EDT Appointment [facility] 30 [place] [address] Marilu Anderson [address] [address] 06/07/2025 9:00 AM EDT Office Visit [facility] at [address] [address] Marilu Anderson [address] [address] 06/07/2025 11:00 AM EDT Infusion [facility] at [address] [address] Marilu Anderson [address] [address] 06/21/2025 9:10 AM EDT Appointment [address] [address] Marilu Anderson [address] [address] 06/21/2025 10:00 AM EDT Office Visit [facility] at [address] [address] Marilu Anderson [address] [address] 06/21/2025 11:40 AM EDT Infusion [facility] at [address] [address] Marilu Anderson [address] [address] 09/11/2025 1:00 PM EST Office Visit [facility] [address] [place] [address] 3rd Floor, [address] [place] [address] Segun Finnegan MD 50 [place] [address] [email or web address] documented as of this encounter Visit Diagnoses Not on filedocumented in this encounter Additional Health Concerns Infection Onset Date Last Indicated Resolved Time CoV-Risk Comment:Per note documentation 06/06/2024 06/06/2024 1:30 PM EDT documented as of this encounter Care Teams Interactive Marketing Strategist Relationship Specialty Start Date End Date Eva Monreal MD [address] [place] [address] 102 [place] [address] [email or web address] PCP - General Internal Medicine 04/03/19 De Enciso MD [address] [place] [address] Historical LMR Provider 01/16/15 Aydee Flores, [address] [address] [email or web address] Inspector Bicycle Oncology 06/09/21 Theresa Sweet [address] [place], [place] 10/06/22 Daniel Reed [address] [place] [address] [email or web address] Activities Manager 06/21/21 Magalis Fong MD [address] [place] [address] Gastroenterology 09/12/23 Marilu Anderson MBBS 30 [place] [address] Primary Oncologist Medical Oncology 01/09/25 05/01/25 Micaela Cobb CNP [address] [place] [address] Nurse Practitioner Medical Oncology 04/05/25 Marilu Anderson MBBS [address] [place] [address] [email or web address] Primary Oncologist Hematology and Oncology 05/02/25 Valeri Morales FNP [address] [place] [address] [email or web address] Nurse Practitioner Medical Oncology 05/15/25 Marilu Anderson MBBS [address] [place] [address] [email or web address] Primary Oncologist Hematology and Oncology 05/15/25 documented as of this encounter Additional Source Comments The information contained in this document represents components of the legal health record. It is not the complete legal health record.[facility]
--- OUTSIDE RECORDS SUMMARY | 2025-05-25 01:22 | XMS_ITS | Encounter Summary ---
Author Organization [facility] Address [address] [facility] [address] [place] [address] Phone Care Team Providers Care Supervisor Production Managing Name Role Phone De Enciso MD Unavailable [phone] Eva Monreal MD Primary Care Provider Aydee Flores [facility] Unavailable Theresa Sweet Unavailable Unavailable Daniel Reed Unavailable Itz 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 Not on file documented as of this encounter Plan of Treatment Upcoming Encounters Date Type Department Care Team (Late st Contact Info) Description 10/31/2024 Procedure Pass Echo Lab [address] [place] [address] 05/27/2025 10:30 AM EDT Office Visit [facility] [address] [address] Lily Cuevas MD [address] [place] [address] [email or web address] 05/30/2025 3:00 PM EDT Appointment Echo Lab [address] [place] [address] Jose Vela, 22 [facility] [address] [place] [address] 06/07/2025 8:10 AM EDT Appointment [facility] [address] [place] [address] Marilu Anderson MBBS 30 [place] [address] 06/07/2025 9:00 AM EDT Office Visit [facility] at [address] [address] [address]il[address] [address] 06/07/2025 11:00 AM EDT Infusion [facility] at [address] [address] Marilu Anderson [address] [address] 06/21/2025 9:10 AM EDT Appointment [address] [address] Marilu Anderson [address] [address] 06/21/2025 10:00 AM EDT Office Visit [facility] at [address] [address] Marilu Anderson [address] [address] 06/21/2025 11:40 AM EDT Infusion [facility] at [address] [address] Maril[address] Anderson [address] [address] 09/11/2025 1:00 PM EST Office Visit [facility], [address] [place] [address] Segun Finnegan MD [address] [place] [address] [email or web address] documented as of this encounter Visit Diagnoses Not on filedocumented in this encounter Additional Health Concerns Infection Onset Date Last Indicated Resolved Time CoV-Risk Comment:Per note documentation 06/06/2024 06/06/2024 1:30 PM EDT documented as of this encounter Care Teams Supervisor Production Managing Relationship Specialty Start Date End Date Eva Monreal MD [address] [place] [address] 102 [place] [address] [email or web address] PCP - General Internal Medicine 04/03/19 De Enciso MD [address] [place] [address] Historical LMR Provider 01/16/15 Aydee Flores, [facility] 35 [place] [address] [email or web address] Hot Worker Oncology 06/09/21 Theresa Sweet 35 [place] [address] 10/06/22 Daniel Reed 35 [place] [address] [email or web address] Retail Sales Assistant 06/21/21 Magalis Fong MD [address] [place] [address] Gastroenterology 09/12/23 Marilu Anderson MBBS 30 [place] [address] [email or web address] Primary Oncologist Medical Oncology 01/09/25 05/01/25 Micaela Cobb CNP 30 [place] [address] [email or web address] Nurse Practitioner Medical Oncology 04/05/25 Marilu Anderson MBBS [address] [place] [address] [email or web address] Primary Oncologist Hematology and Oncology 05/02/25 Valeri Morales FNP [address] [place] [address] [email or web address] Nurse Practitioner Medical Oncology 05/15/25 Marilu Anderson MBBS 30 [place] [address] [email or web address] Primary Oncologist Hematology and Oncology 05/15/25 documented as of this encounter Additional Source Comments The information contained in this document represents components of the legal health record. It is not the complete legal health record.[facility]
--- OUTSIDE RECORDS SUMMARY | 2025-05-25 01:22 | XMS_ITS | Encounter Summary ---
Author Organization [facility] Address [address] [facility] [address] [place] [address] Phone Care Team Providers Care Planer Hand Name Role Phone De Enciso MD Unavailable [phone] Eva Monreal MD Primary Care Provider [phone] Aydee Flores [facility] Unavailable Theresa Sweet Unavailable Unavailable Daniel Reed Unavailable Itz [email or web address] Magalis Fong MD Unavailable [phone] Marilu Anderson Unavailable Micaela Cobb CNP Unavailable Marilu Anderson Unavailable [phone] Valeri MoralesP Unavailable Marilu Anderson Unavailable [phone] Encounter Details Date Type Department Care Team (Late st Contact Info) Description 02/21/2025 Transcribe 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 Not on file documented as of this encounter Plan of Treatment Upcoming Encounters Date Type Department Care Team (Late st Contact Info) Description 10/31/2024 Procedure Pass Echo Lab [address] [place] [address] 05/27/2025 10:30 AM EDT Office Visit [facility] [address] [place] [address] Lily Cuevas MD [address] [place] [address] [email or web address] [email or web address] 05/30/2025 3:00 PM EDT Appointment Echo Lab [address] [address] Jose Vela DO [address] [address] 06/07/2025 8:10 AM EDT Appointment [facility] [address] [place] [address] Marilu Anderson MBBS [address] [place] [address] 06/07/2025 9:00 AM EDT Office Visit [facility] at [address] [address] Marilu Andreson MBBS [address] [place] [address] 06/07/2025 11:00 AM EDT Infusion [facility] at [address] [address] Marilu Anderson MBBS [address] [place] [address] 06/21/2025 9:10 AM EDT Appointment [facility] Laboratory [address] [place] [address] Marilu Anderson MBBS [address] [place] [address] 06/21/2025 10:00 AM EDT Office Visit [facility] at [address] [address] Marilu Anderson MBBS [address] [place] [address] 06/21/2025 11:40 AM EDT [facility] [place] 30 [place] [address] Marilu Anderson MBBS 30 [place] [address] 09/11/2025 1:00 PM EST Office Visit [facility] 22 [facility] 3rd Floor, [address] [place] [address] Segun Finnegan MD [address] [place] [address] [email or web address] documented as of this encounter Visit Diagnoses Not on filedocumented in this encounter Care Teams Planer Hand Relationship Specialty Start Date End Date Eva Monreal MD [address] [place] [address] 102 [place] [address] [email or web address] PCP - General Internal Medicine 04/03/19 De Enciso MD [address] [place] [address] Historical LMR Provider 01/16/15 Aydee Flores, [facility] 35 [place] [address] [email or web address] Hospice Spiritual Care Coordinator Oncology 06/09/21 Theresa Sweet [address] [place], [place] 10/06/22 Daniel Reed 35 [place] [address] [email or web address] Diamond Expert 06/21/21 Magalis Fong MD [address] [place] [address] Gastroenterology 09/12/23 Marilu Anderson MBBS [address] [place] [address] [email or web address] Primary Oncologist Medical Oncology 01/09/25 05/01/25 Micaela Cobb CNP [address] [place] [address] Nurse Practitioner Medical Oncology 04/05/25 Marilu Anderson MBBS [address] [place] [address] [email or web address] Primary Oncologist Hematology and Oncology 05/02/25 Valeri Morales FNP [address] [place] [address] [email or web address] Nurse Practitioner Medical Oncology 05/15/25 Marilu Anderson MBBS [address] [place] [address] [email or web address] Primary Oncologist Hematology and Oncology 05/15/25 documented as of this encounter Additional Source Comments The information contained in this document represents components of the legal health record. It is not the complete legal health record.[facility]
--- OUTSIDE RECORDS SUMMARY | 2025-05-25 01:22 | XMS_ITS | Encounter Summary ---
Author Organization [facility] Address [address] [employer] [address] [place] [address] Phone Care Team Providers Care Radio Operator Name Role Phone De Enciso MD Unavailable [phone] Eva Monreal MD Primary Care Provider [phone] Aydee Flores [facility] Unavailable Theresa Sweet Unavailable Unavailable Daniel Reed Unavailable Itz [email or web address] Magalis Fong MD Unavailable [phone] Micaela Cobb CNP Unavailable Marilu Anderson Unavailable Valeri MoralesP Unavailable [phone] Marilu Anderson Unavailable [phone] Encounter Details Date Type Department Care Team (Late st Contact Info) Description 05/02/2025 Orders Only [facility] 30 [place], [place] [phone] Felicia Trejo MA 30 [place], [place] [phone] [email or web address] 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 05/30/2025 3:00 PM EDT Appointment Echo Lab [address] [place] [address] Jose Vela DO 22 [facility] [address] [place] [address] 06/07/2025 8:10 AM EDT Appointment [facility] Laboratory [address] [place] [address] Marilu Anderson MBBS [address] [place] [address] 06/07/2025 9:00 AM EDT Office Visit [facility] at [address] [address] [address] [address] 06/07/2025 11:00 AM EDT Infusion [facility] at [address] [address] Marilu Anderson MBBS [address] [place] [address] 06/21/2025 9:10 AM EDT Appointment [facility] Laboratory [address] [place] [address] Marilu Anderson MBBS [address] [place] [address] 06/21/2025 10:00 AM EDT Office Visit [facility] at [address] [address] Marilu Anderson MBBS [address] [place] [address] 06/21/2025 11:40 AM EDT Infusion [facility] 30 [place] [address] Marilu Anderson MBBS 30 [place] [address] 09/11/2025 1:00 PM EST Office Visit [facility] 22 [facility] 3[facility], [address] [place] [address] Segun Finnegan MD [address] [place] [address] [email or web address] documented as of this encounter Results * (ABNORMAL) Comprehensive metabolic panel (05/09/2025 1:52 PM EDT) SODIUM 136 133 - 146 mmol/L [facility] POTASSIUM 5.0 3.3 - 5.1 mmol/L [facility] CHLORIDE 100 96 - 108 mmol/L [facility] CO2 27 21 - 35 mmol/L [facility] BUN 25(H) 6 - 19 mg/dL [facility] CREATININE 1.10 0.5 - 1.5 mg/dL [facility] GLUCOSE 164(H) 70 - 99 mg/dL [facility] ALBUMIN 4.2 3.9 - 4.8 g/dL [facility] TOTAL PROTEIN 6.6 6.5 - 8.0 g/dL [facility] CALCIUM 9.0 8.4 - 10.3 mg/dL [facility] ALKALINE PHOSPHATASE 153(H) 39 - 117 U/L [facility] TOTAL BILIRUBIN 0.3 0.0 - 1.2 mg/dL [facility] AST 23 0 - 37 U/L [facility] ALT 20 0 - 40 U/L [facility] GLOBULIN 2.4 1 - 4.8 g/dL [facility] EGFR 54(L) >59 mL/min/1.7 3m2 [facility] Comment:Estimated glomerular filtration rate calculated using the CKD-EPI refit equation. ANION GAP 14 10 - 20 mmol/L [facility] Blood 05/09/2025 1:52 PM EDT 05/09/2025 1:56 PM EDT us Marilu ESQUIVEL LAB BLOOD ORDERABLES Final R esult [facility] 30 [place], [place] [phone] * (ABNORMAL) CBC and differential (05/09/2025 1:52 PM EDT) WBC 8.93 4.00 - 11.00 K/uL [facility] RBC 2.78(L) 4.00 - 5.20 M/uL [facility] HGB 8.9(L) 12.0 - 16.0 g/dL [facility] HCT 27.1(L) 36.0 - 46.0 % [facility] PLT 314 150 - 450 K/uL [facility] MCV 97.5 80.0 - 100.0 fL [facility] MCH 32.0(H) 27.0 - 31.0 pg [facility] MCHC 32.8 32.0 - 36.0 g/dL [facility] RDW 18.6(H) 11.5 - 14.5 % [facility] MPV 9.6 8.4 - 12.0 fL [facility] NRBC 0.00 0.00 /100 WBCs [facility] ABSOLUTE NRBC 0.00 0.00 K/uL [facility] DIFF METHOD Auto [facility] NEUTS 81.5(H) 48.0 - 76.0 % [facility] LYMPHS 10.6(L) 18.0 - 41.0 % [facility] MONOS 6.7 4.0 - 11.0 % [facility] EOS 0.7 0.0 - 5.0 % [facility] BASOS 0.2 0.0 - 1.5 % [facility] Granulocytes, immature (%) 0.3 0.0 - 0.9 % [facility] ABSOLUTE NEUTS 7.27 1.92 - 7.60 K/uL [facility] ABSOLUTE LYMPHS 0.95 0.72 - 4.10 K/uL [facility] ABSOLUTE MONOS 0.60 0.16 - 1.10 K/uL [facility] ABSOLUTE EOS 0.06 0.00 - 0.50 K/uL [facility] ABSOLUTE BASOS 0.02 0.00 - 0.15 K/uL [facility] Granulocytes, immature 0.03 0.00 - 0.09 K/uL [facility] Blood 05/09/2025 1:52 PM EDT 05/09/2025 1:56 PM EDT us Marilu ESQUIVELBS LAB BLOOD ORDERABLES Final R esult [facility] 30 [place] [address] documented in this encounter Visit Diagnoses Diagnosis Acute myeloid leukemia in remission- Primary documented in this encounter Care Teams Radio Operator Relationship Specialty Start Date End Date Eva Monreal MD [address] [place] [address] [email or web address] PCP - General Internal Medicine 04/03/19 De Enciso MD [address] [place] [address] Historical LMR Provider 01/16/15 Aydee Flores, [facility] 35 [place] [address] [email or web address] Field Sales Associate Oncology 06/09/21 Theresa Sweet 35 [place] [address] 10/06/22 Daniel Reed [address] [place] [address] [email or web address] Driller 06/21/21 Magalis Fong MD [address] [place] [address] Gastroenterology 09/12/23 Micaela Cobb CNP 30 [place] [address] [email or web address] Nurse Practitioner Medical Oncology 04/05/25 Marilu Anderson MBBS 30 [place] [address] [email or web address] Primary Oncologist Hematology and Oncology 05/02/25 Valeri Morales FNP 30 [place] [address] [email or web address] Nurse Practitioner Medical Oncology 05/15/25 Marilu Anderson MBBS 30 [place] [address] [email or web address] Primary Oncologist Hematology and Oncology 05/15/25 documented as of this encounter Additional Source Comments The information contained in this document represents components of the legal health record. It is not the complete legal health record.[facility]
--- OUTSIDE RECORDS SUMMARY | 2025-05-25 01:22 | XMS_ITS | Encounter Summary ---
Author Organization [facility] Address [address] [facility] [address] [place] [address] Phone Care Team Providers Care Licensing Representative Name Role Phone De Enciso MD Unavailable [phone] Eva Monreal MD Primary Care Provider Aydee Flores [facility] Unavailable Theresa Sweet Unavailable Unavailable Daniel Reed Unavailable Itz [email or web address].[facility] Magalis Fong MD Unavailable [phone] Micaela Cobb CNP Unavailable Marilu Anderson Unavailable Valeri Morales SCARFER Unavailable [phone] Marilu Anderson Unavailable Encounter Details Date Type Department Care Team (Late st Contact Info) Description 05/03/2025 Orders Only Procedure Suite, [facility] [place] [address] [facility], 6th [place] [address] Ro Estrada NP [address] [address] 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 05/30/2025 3:00 PM EDT Appointment Echo Lab [address] [address] Jose Vela DO [address] [address] 06/07/2025 8:10 AM EDT Appointment [facility] Laboratory [address] [place] [address] Marilu Anderson MBBS [address] [place] [address] 06/07/2025 9:00 AM EDT Office Visit [facility] at [address] [address] Marilu Anderson MBBS [address] [place] [address] 06/07/2025 11:00 AM EDT Infusion [facility] at [address] [address] Marilu Anderson MBBS [address] [place] [address] 06/21/2025 9:10 AM EDT Appointment [facility] Laboratory [address] [place] [address] Marilu Anderson MBBS [address] [place] [address] 06/21/2025 10:00 AM EDT Office Visit [facility] at [address] [address] Marilu Anderson MBBS [address] [place] [address] [email or web address] 06/21/2025 11:40 AM EDT Infusion [facility] [place] 30 [place] [address] Marilu Anderson MBBS 30 [place] [address] 09/11/2025 1:00 PM EST Office Visit [facility] [address] [place] [address] 3rd Floor, [address] [place] [address] Segun Finnegan MD [address] [place] [address] [email or web address] documented as of this encounter Visit Diagnoses Not on filedocumented in this encounter Care Teams Licensing Representative Relationship Specialty Start Date End Date Eva Monreal MD [address] [place] [address] 102 [place] [address] [email or web address] PCP - General Internal Medicine 04/03/19 De Enciso MD [address] [place] [address] Historical LMR Provider 01/16/15 Aydee Flores, [facility] 35 [place] [address] [email or web address] Nut Chopper Oncology 06/09/21 Theresa Sweet [address] [place] [address] 10/06/22 Daniel Reed [address] [place] [address] [email or web address] Can Filling And Closing Machine Tender 06/21/21 Magalis Fong MD [address] [place] [address] Gastroenterology 09/12/23 Micaela Cobb CNP 30 [place] [address] [email or web address] Nurse Practitioner Medical Oncology 04/05/25 Marilu Anderson MBBS 30 [place] [address] [email or web address] Primary Oncologist Hematology and Oncology 05/02/25 Valeri Morales FNP 30 [place] [address] [email or web address] Nurse Practitioner Medical Oncology 05/15/25 Marilu Anderson MBBS 30 [place] [address] [email or web address] Primary Oncologist Hematology and Oncology 05/15/25 documented as of this encounter Additional Source Comments The information contained in this document represents components of the legal health record. It is not the complete legal health record.[facility]
--- OUTSIDE RECORDS SUMMARY | 2025-05-25 01:23 | XMS_ITS | Encounter Summary ---
Author Organization [facility] Address 399 [facility] [address] [place] [address] Phone Care Team Providers Care Compressor Station Engineer Name Role Phone De Enciso MD Unavailable [phone] Eva Monreal MD Primary Care Provider [phone] Aydee Flores [facility] Unavailable Theresa Sweet Unavailable Unavailable Daniel Reed Unavailable Itz [email or web address] Magalis Fong MD Unavailable [phone] Micaela Cobb CNP Unavailable Marilu Anderson Unavailable Valeri MoralesP Unavailable [phone] Marilu Anderson Unavailable Reason for Visit * Reason Onset Date Comments Appointment 05/23/2025 Encounter Details Date Type Department Care Team (Late st Contact Info) Description 05/23/2025 Telephone [facility] [address] [facility] 1st [place], [place] [id number] Sera Friedman [address] [place] [address] [phone] 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 Cuevas if pt needs to cancel her 05/[address] Cuevas documented in this encounter Plan of Treatment Upcoming Encounters Date Type Department Care Team (Late st Contact Info) Description 10/31/2024 Procedure Pass Echo Lab [address] [place] [address] 05/27/2025 10:30 AM EDT Office Visit [facility] [address] [address] Lily Cuevas MD 221 [place] [address] [email or web address] 05/30/2025 3:00 PM EDT Appointment Echo Lab [address] [address] Jose Vela DO 22 [facility] [address] [place] [address] 06/07/2025 8:10 AM EDT Appointment [facility] Laboratory [address] [place] [address] Marilu Anderson MBBS [address] [place] [address] 06/07/2025 9:00 AM EDT Office Visit [facility] at [address] [address] Marilu Anderson MBBS [address] [place] [address] 06/07/2025 11:00 AM EDT Infusion [facility] at [address] [address] Marilu Anderson MBBS [address] [place] [address] 06/21/2025 9:10 AM EDT Appointment [facility] Laboratory [address] [place] [address] Marilu Anderson MBBS [address] [place] [address] 06/21/2025 10:00 AM EDT Office Visit [facility] at [address] [address] Marilu Anderson MB 30 [place] [address] 06/21/2025 11:40 AM EDT Infusion [facility] at [address] [address] Marilu Anderson MB 30 [place] [address] 09/11/2025 1:00 PM EST Office Visit [facility] [address] [place] [address] 3rd Floor, [address] [place] [address] Segun Finnegan MD [address] [place] [address] [email or web address] documented as of this encounter Visit Diagnoses Not on filedocumented in this encounter Care Teams Compressor Station Engineer Relationship Specialty Start Date End Date Eva Monreal MD [address] [place] [address] [email or web address] PCP - General Internal Medicine 04/03/19 De Enciso MD [address] [place] [address] Historical LMR Provider 01/16/15 Aydee Flores, [facility] 35 [place] [address] [email or web address] Core Inserter Oncology 06/09/21 Theresa Sweet 35 [place] [address] 10/06/22 Daniel Reed [address] [place] [address] [email or web address] Insulation Engineman 06/21/21 Magalis Fong MD [address] [place] [address] Gastroenterology 09/12/23 Micaela Cobb CNP [address] [place] [address] Nurse Practitioner Medical Oncology 04/05/25 Marilu Anderson MBBS [address] [place] [address] [email or web address] Primary Oncologist Hematology and Oncology 05/02/25 Valeri Morales FNP [address] [place] [address] Nurse Practitioner Medical Oncology 05/15/25 Marilu Anderson MBBS [address] [place] [address] [email or web address] Primary Oncologist Hematology and Oncology 05/15/25 documented as of this encounter Additional Source Comments The information contained in this document represents components of the legal health record. It is not the complete legal health record.[facility]
--- OUTSIDE RECORDS SUMMARY | 2025-05-25 01:23 | XMS_ITS | Encounter Summary ---
Author Organization [facility] Address 399 [facility] [address] [place] [address] Phone Care Team Providers Care Press Washer Name Role Phone Erwin Gavin MD Primary Care Provider De Jaime MD Unavailable [phone] Brittany Estrella Unavailable Brittany_[email or web address] [email or web address]. Asher Jeffery MD Unavailable Cheryl Hernandez CONCRETE BATCHING PLANT OPERATOR Unavailable [phone] Eva Monreal MD Primary Care Provider Aydee Flores CONCRETE BATCHING PLANT OPERATOR Unavailable Theresa Sweet Unavailable Unavailable Daniel Reed Unavailable Itz [email or web address] Magalis Fong MD Unavailable + [phone] Marilu Anderson Unavailable [phone] Micaela Cobb CNP Unavailable Marilu Anderson Unavailable Valeri MoralesP Unavailable [phone] Marilu Anderson Unavailable [phone] Encounter Details Date Type Department Care Team (Late st Contact Info) Description 06/15/2017 EpicOnHand Encounter Division of Hematologic Oncology, [facility] 450 [facility], 8th [place] [address] Ro Estrada NP [address] [address] [email or web address] Social History Tobacco Use Types [...] Info) Description 10/31/2024 Procedure Pass Echo Lab [address] [place] [address] 05/27/2025 10:30 AM EDT Office Visit [facility] [address] [address] Lily Cuevas MD 221 [place] [address] [email or web address] 05/30/2025 3:00 PM EDT Appointment Echo Lab [address] [place] [address] Jose Vela DO 22 [facility] [address] [place] [address] 06/07/2025 8:10 AM EDT Appointment [facility] 30 [place] [address] Marilu Anderson MBBS 30 [place] [address] 06/07/2025 9:00 AM EDT Office Visit [facility] [place] at [address] [address] [address] [address] 06/07/2025 11:00 AM EDT Infusion [facility] [place] at [address] [address] Marilu Anderson [address] [address] 06/21/2025 9:10 AM EDT Appointment [address] [address] Marilu Anderson MBBS [address] [place] [address] 06/21/2025 10:00 AM EDT Office Visit [facility] at [address] [address] Marilu Anderson MBBS [address] [place] [address] 06/21/2025 11:40 AM EDT Infusion [facility] [place] at [address] [address] Marilu Anderson MBBS [address] [place] [address] 09/11/2025 1:00 PM EST Office Visit [facility] [address] [place] [address] 3rd Floor, [address] [place] [address] Segun Finnegan MD 50 [place] [address] [email or web address] documented as of this encounter Visit Diagnoses Not on filedocumented in this encounter Additional Health Concerns Infection Onset Date Last Indicated Resolved Time CoV-Risk Comment:Per note documentation 06/06/2024 06/06/2024 1:30 PM EDT documented as of this encounter Care Teams Press Washer Relationship Specialty Start Date End Date Erwin Gavin MD PCP - General 03/05/14 04/02/19 Eva Monreal MD [address] [place] [address] 102 [place] [address] [email or web address] PCP - General Internal Medicine 04/03/19 De Enciso MD 450 [place] [address] Historical LMR Provider 01/16/15 Brittany Estrella 450 [place] [address] [email or web address] Clinical Coordinator Resource, Ancillary 02/10/15 06/08/21 Asher [place] MD 450 [place] [address] [email or web address] Referring Physician Hematology 12/03/15 11/25/21 Cheryl Hernandez, [facility] 35 [place] [address] [email or web address] Superintendent Terminal Oncology 12/05/15 06/08/21 Aydee Flores, [facility] 35 [place] [address] [email or web address] Superintendent Terminal Oncology 06/09/21 Theresa Sweet 35 [place] [address] 10/06/22 Daniel Reed 35 [place] [address] [email or web address] Ramp Lead 06/21/21 Magalis Fong MD [address] [place] [address] Gastroenterology 09/12/23 Marilu Anderson MBBS [address] [place] [address] [email or web address] Primary Oncologist Medical Oncology 01/09/25 05/01/25 Micaela Cobb CNP [address] [place] [address] Nurse Practitioner Medical Oncology 04/05/25 Marilu Anderson MBBS [address] [place] [address] [email or web address] Primary Oncologist Hematology and Oncology 05/02/25 Valrei Morales FNP [address] [place] [address] [email or web address] Nurse Practitioner Medical Oncology 05/15/25 Marilu Anderson MBBS [address] [place] [address] [email or web address] Primary Oncologist Hematology and Oncology 05/15/25 documented as of this encounter Additional Source Comments The information contained in this document represents components of the legal health record. It is not the complete legal health record.[facility]
--- OUTSIDE RECORDS SUMMARY | 2025-05-25 01:23 | XMS_ITS | Encounter Summary ---
Author Organization [facility] Address 399 [facility] [address] [place] [address] Phone Care Team Providers Care Food Demonstrator Name Role Phone Erwin Gavin MD Primary Care Provider De Jaime MD Unavailable [phone] Brittany Estrella Unavailable Brittany_[email or web address] [email or web address]. Asher Jeffery MD Unavailable Cheryl Hernandez INTERNIST MEDICAL DOCTOR MD Unavailable Eva Monreal MD Primary Care Provider Aydee Flores INTERNIST MEDICAL DOCTOR MD Unavailable Theresa Sweet Unavailable Unavailable Daniel Reed Unavailable Itz @[email or web address] Magalis Fong MD Unavailable + [phone] Marilu Anderson Unavailable [phone] Micaela Cobb CNP Unavailable Marilu Anderson Unavailable [phone] Valeri MoralesP Unavailable [phone] Marilu Anderson Unavailable [phone] Encounter Details Date Type Department Care Team (Late st Contact Info) Description 01/31/2019 EpicOnHand Encounter Procedure Suite, [facility] [place] [address] [facility], 6th [place] [address] Ro Estrada NP [address] [address] [email or web address] Social History Tobacco Use Types [...] 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 Not on file documented as of this encounter Plan of Treatment Upcoming Encounters Date Type Department Care Team (Late st Contact Info) Description 10/31/2024 Procedure Pass Echo Lab [address] [place] [address] 05/27/2025 10:30 AM EDT Office Visit [facility] [address] [address] Lily Cuevas MD [address] [place] [address] [email or web address] 05/30/2025 3:00 PM EDT Appointment Echo Lab [address] [place] [address] Jose Vela DO [address] [address] 06/07/2025 8:10 AM EDT Appointment [facility] 30 [place] [address] Kamugisha, Marilu, [address] [address] 06/07/2025 9:00 AM EDT Office Visit [facility] at [address] [address] aMrilu Anderson [address] [address] 06/07/2025 11:00 AM EDT Infusion [facility] at [address] [address] [address] [address] 06/21/2025 9:10 AM EDT Appointment [address] [address] Marilu Anderson [address] [address] 06/21/2025 10:00 AM EDT Office Visit [facility] at [address] [address] Marilu Anderson [address] [address] 06/21/2025 11:40 AM EDT Infusion [facility] at [address] [address] Marilu Anderson [address] [address] 09/11/2025 1:00 PM EST Office Visit [facility] [address] 3rd Floor, [address] [place] [address] Segun Finnegan MD 50 [place] [address] [email or web address] documented as of this encounter Visit Diagnoses Not on filedocumented in this encounter Additional Health Concerns Infection Onset Date Last Indicated Resolved Time CoV-Risk Comment:Per note documentation 06/06/2024 06/06/2024 1:30 PM EDT documented as of this encounter Care Teams Food Demonstrator Relationship Specialty Start Date End Date Erwin Gavin MD PCP - General 03/05/14 04/02/19 Eva Monreal MD [address] [place] [address] [address] [place] [address] [email or web address] PCP - General Internal Medicine 04/03/19 De Enciso MD 450 [place] [address] Historical LMR Provider 01/16/15 Brittany Estrella 450 [place] [address] [email or web address] Clinical Coordinator Resource, Ancillary 02/10/15 06/08/21 Asher [place] MD 450 [place] [address] [email or web address] Referring Physician Hematology 12/03/15 11/25/21 Cheryl Hernandez, [facility] 35 [place] [address] [email or web address] Conditioning Room Worker Oncology 12/05/15 06/08/21 Aydee Flores, [facility] 35 [place] [address] [email or web address] Conditioning Room Worker Oncology 06/09/21 Theresa Sweet 35 [place] [address] 10/06/22 Daniel Reed 35 [place] [address] [email or web address] Offset Duplicating Machine Operator 06/21/21 Magalis Fong MD [address] [place] [address] Gastroenterology 09/12/23 Marilu Anderson MBBS [address] [place] [address] [email or web address] Primary Oncologist Medical Oncology 01/09/25 05/01/25 Micaela Cobb CNP [address] [place] [address] [email or web address] Nurse Practitioner Medical Oncology 04/05/25 Marilu Anderson MBBS [address] [place] [address] [email or web address] Primary Oncologist Hematology and Oncology 05/02/25 Valeri Morales FNP [address] [place] [address] Nurse Practitioner Medical Oncology 05/15/25 Marilu Anderson MBBS [address] [place] [address] [email or web address] Primary Oncologist Hematology and Oncology 05/15/25 documented as of this encounter Additional Source Comments The information contained in this document represents components of the legal health record. It is not the complete legal health record.[facility]
--- OUTSIDE RECORDS SUMMARY | 2025-05-25 01:23 | XMS_ITS | Encounter Summary ---
Author Organization [facility] Address 399 [facility] [address] [place] [address] Phone Care Team Providers Care Laboratory Technical Specialist Name Role Phone Erwin Gavin MD Primary Care Provider De Jaime MD Unavailable [phone] Brittany Estrella Unavailable Brittany_[email or web address] [email or web address] Asher Jeffery MD Unavailable Cheryl Hernandez CONTINUOUS VULCANIZING MACHINE OPERATOR Unavailable [phone] Eva Monreal MD Primary Care Provider Aydee Flores CONTINUOUS VULCANIZING MACHINE OPERATOR Unavailable Theresa Sweet Unavailable Unavailable Daniel Reed Unavailable Itz [email or web address] Magalis Fong MD Unavailable + [phone] Marilu Anderson Unavailable Micaela Cobb CNP Unavailable Marilu Anderson Unavailable Valeri MoralesP Unavailable [phone] Marilu Anderson Unavailable [phone] Encounter Details Date Type Department Care Team (Late st Contact Info) Description 11/03/2016 EpicOnHand Encounter Division of Hematologic Oncology, [facility] [place] [address] [facility], 8th [place] [address] Ro Estrada NP [address] [address] [email or web address] Social History Tobacco Use Types Packs/Day [...] Info) Description 10/31/2024 Procedure Pass Echo Lab [address] [place] [address] 05/27/2025 10:30 AM EDT Office Visit [facility] 221 [facility] 1st [place] [address] Lily Cuevas MD 221 [place] [address] [email or web address] 05/30/2025 3:00 PM EDT Appointment Echo Lab [address] [place] [address] Jose Vela DO 22 [facility] [address] [place] [address] 06/07/2025 8:10 AM EDT Appointment [facility] 30 [place] [address] Marilu Anderson MBBS 30 [place] [address] 06/07/2025 9:00 AM EDT Office Visit [facility] at [address] [address] Marilu Anderson [address] [address] 06/07/2025 11:00 AM EDT Infusion [facility] at [address] [address] Marilu Anderson [address] [address] 06/21/2025 9:10 AM EDT Appointment [address] [address] Marilu Anderson MBBS [address] [place] [address] 06/21/2025 10:00 AM EDT Office Visit [facility] at [address] [address] Marilu Anderson MBBS [address] [place] [address] 06/21/2025 11:40 AM EDT Infusion [facility] [place] at [address] [address] Marilu Anderson MBBS [address] [place] [address] 09/11/2025 1:00 PM EST Office Visit [facility] [address] [place] [address] 3rd Floor, [address] [place] [address] Segun Finnegan MD 50 [place] [address] [email or web address] documented as of this encounter Visit Diagnoses Not on filedocumented in this encounter Additional Health Concerns Infection Onset Date Last Indicated Resolved Time CoV-Risk Comment:Per note documentation 06/06/2024 06/06/2024 1:30 PM EDT documented as of this encounter Care Teams Laboratory Technical Specialist Relationship Specialty Start Date End Date Erwin Gavin MD PCP - General 03/05/14 04/02/19 Eva Monreal MD [address] [place] [address] [email or web address] PCP - General Internal Medicine 04/03/19 De Enciso MD 450 [place] [address] Historical LMR Provider 01/16/15 Brittany Estrella 450 [place] [address] [email or web address] Clinical Coordinator Resource, Ancillary 02/10/15 06/08/21 Asher [place] MD 450 [place] [address] [email or web address] Referring Physician Hematology 12/03/15 11/25/21 Cheryl Hernandez, [facility] 35 [place] [address] [email or web address] Field Adjuster Oncology 12/05/15 06/08/21 Aydee Flores, [facility] 35 [place] [address] [email or web address] Field Adjuster Oncology 06/09/21 Theresa Sweet 35 [place] [address] 10/06/22 Daniel Reed [address] [place] [address] [email or web address] Child Abuse Worker 06/21/21 Magalis Fong MD [address] [place] [address] Gastroenterology 09/12/23 Marilu Anderson MBBS [address] [place] [address] [email or web address] Primary Oncologist Medical Oncology 01/09/25 05/01/25 Micaela Cobb CNP [address] [place] [address] [email or web address] Nurse Practitioner Medical Oncology 04/05/25 Marilu Anderson MBBS [address] [place] [address] [email or web address] Primary Oncologist Hematology and Oncology 05/02/25 Valeri Morales FNP [address] [place] [address] [email or web address] Nurse Practitioner Medical Oncology 05/15/25 Marilu Anderson MBBS [address] [place] [address] [email or web address] Primary Oncologist Hematology and Oncology 05/15/25 documented as of this encounter Additional Source Comments The information contained in this document represents components of the legal health record. It is not the complete legal health record.[facility]
--- OUTSIDE RECORDS SUMMARY | 2025-05-25 01:23 | XMS_ITS | Clinical Summary ---
Author Organization [facility] Address [address] [facility] [address] [place] [address] Phone Care Team Providers Care Junior Financial Analyst Name Role Phone Chun Enciso MD Unavailable [phone] Eva Monreal MD Primary Care Provider [phone] Aydee Flores [facility] Unavailable Theresa Sweet Unavailable Unavailable Daniel Reed Unavailable [email or web address] Magalis Fong MD Unavailable [phone] Micaela Cobb CNP Unavailable Marilu Anderson Unavailable Valeri Morales [employer] CR[employer] OPERATOR Unavailable [phone] Marilu Anderson Unavailable [phone] Allergies Active Allergy Reactions Criticality Noted Date Comments Amlodipine 04/22/2024 Other Reaction(s): Unknown Other Reaction(s): ankle swell Benzoyl Peroxide-Hc 08/30/2022 Other reaction(s): rash Ceftazidime Rash Low 07/20/2017 Cephalosporins Hives 08/25/2008 skin test pre-pen, pen G, and ceftriaxone on 06/20/2013, were all negative. However, given the low sensitivity of the latter, this patient should be considered cephalosporin (and carbapenem) allergic unless disproved by an certified physician's assistant by way of a graded challenge. Cilastatin [...] 02/01/2013 Medications FA/MV,CA,IRON,MIN /LYCOPENE/LUT (MULTIVITAL ORAL) MVI (MULTIVITAMINS) ; Dose: 1 TAB; Form: Not available; Route: PO; Frequency: QD; Directions: Not available; Details: Duration: 30 day(s); Dispense: 1 Month(s) Supply; Taking; Status: Active; Source: RISHABH TREJO M.D., M.P.H.; Date: 02/14/2009 009 Active niacinamide 500 mg [...] differently: 112 mcgOral Every morning, Reported on 05/23/2025 clobetasol (TEMOVATE) 0.05 % Gel Apply 1 Application topically as needed. 024 2024 Active ketoconazole (NIZORAL) 2 % shampoo as directed Externally Active famotidine (PEPCID) 20 MG tablet TAKE 1 TABLET BY MOUTH TWICE A DAY 180 tablet 3 Active DULoxetine (CYMBALTA) 60 MG capsule 2 (two) times a day. Active mirtazapine (REMERON) 7.5 MG tablet Take 7.5 mg by mouth. Active JARDIANCE 10 mg tabletIndications :Acute on chronic diastolic heart failure TAKE 1 TABLET BY MOUTH EVERY DAY 90 tablet 3 Active losartan (COZAAR) 25 MG tablet Take 1 tablet (25 mg total) by mouth daily. 90 tablet 3 Active ELIQUIS 2.5 mgIndications:Par oxysmal atrial fibrillation TAKE 1 TABLET BY MOUTH TWICE A DAY 60 tablet 5 Active Additional Information Patient not taking.Reported on 05/23/2025 fluorouraciL (EFUDEX) 5 % creamIndications: Actinic keratosis [...] by mouth 2 (two) times a day. 025 Active valACYclovir (VALTREX) 500 MG tablet TAKE 1 TABLET BY MOUTH TWICE A DAY 180 tablet 3 025 Active gabapentin (NEURONTIN) 300 MG capsuleIndication s:Peripheral neuropathy due to chemotherapy,Hist ory of peripheral stem cell transplant,Post herpetic neuralgia TAKE 2 CAPSULES BY MOUTH 3 TIMES A DAY 180 capsule 6 025 Active budesonide (ENTOCORT EC) 3 mg 24 hr capsuleIndication s:Fgdtx-lbblio-nw st disease, unspecified,Stem cells transplant status TAKE 3 CAPSULES (9 MG TOTAL) BY MOUTH DAILY. 270 capsule 1 025 Active oxyCODONE 5 MG immediate release tabletIndications :Acute myeloid leukemia in remission,Chronic pain syndrome Take 2 tablets (10 mg total) by mouth every 4 (four) hours as needed (MAX 6 tablets per day, 20 day supply). Partial fill ok. 120 tablet 025 Active clopidogrel (PLAVIX) 75 mg tablet Take 75 mg by mouth daily. 025 Active sulfamethoxazole- trimethoprim (BACTRIM DS) 800-160 mg per tablet Take 1 tablet (160 mg of trimethoprim total) by mouth 2 (two) times a day. 7 tablet 025 Active gabapentin (NEURONTIN) 300 MG capsuleIndication s:Peripheral neuropathy due to chemotherapy,Hist ory of peripheral stem cell transplant,Post herpetic neuralgia Take 2 capsules (600 mg total) by mouth 3 (three) times a day. 180 capsule 6 025 2024 Discontinued oxyCODONE 5 MG immediate release tabletIndications :Acute myeloid leukemia in remission,Chronic pain syndrome Take 2 tablets (10 mg total) by mouth every 4 (four) hours as needed (MAX 6 tablets per day, 20 day supply). Partial fill ok. 120 tablet 025 2024 Discontinued(R eorder) budesonide (ENTOCORT EC) 3 mg 24 hr capsule Take 3 capsules (9 mg total) by mouth every morning. 90 capsule 025 2024 Discontinued Active Problems Problem Noted Date Diagnosed Date [...] a history of anemia and follows with [facility] for injections. Patient has previously discussed [...] Rationale for seeking non-pharmacological alternative to terminal carman OAC (select all that apply): History of [...] used to structure this shared decision-making interaction. www.cardiosmart.org/docs/default-source/assets/decision-aid/urzp-eqwmno-bjwnyyvi on_ve ow-uzvc-dsdg.pdf?jxjuhd=[email or web address] After review of this shared decision-making tool, [...] is supposed to have a consult in [place] for watchman Assessment & Plan (05/21/2024 1:55 [...] Additionally she has been working with her urology physician who has her on medication that has [...] History of peripheral stem cell transplant 06/23 Scale-skxltx-feje disease 03/24/2015 Overview (05/14/2016): IMO update Hypertensive [...] Encounters Date Type Department Care Team Description 05/23/2025 2:40 PM EDT Infusion [facility] at [address] [address] Marilu Anderson MBBS Zononi, Karen, GREGORIA Anemia associated with chronic renal failure (Primary Dx) 05/23/2025 1:30 PM EDT Office Visit [facility] at [address] [address] Valeri Morales FNP 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); Cellulitis of left lower extremity 05/23/2025 12:10 PM EDT - 05/23/2025 11:59 PM EDT Hospital Encounter [facility] [address] [place] [address] Marilu Anderson MBBS Arrived Discharge Disposition: Home or Self Care 05/23/2025 Telephone [facility] Center at [address] [address] Lauren Starkey, [place]REGORIA Labs (Delta change in PLT count) 05/23/2025 Telephone [facility] [address] [facility] 1st [place] [address] Sera Friedman Appointment 05/14/2025 Orders Only Procedure Suite, [facility] [place] [address] [place] [address], 6th [place] [address] Ro Estrada NP Acute myeloid leukemia in remission; Chronic pain syndrome 05/09/2025 3:40 PM EDT Infusion [facility] at [address] [address] Marilu Anderson MBBS Anemia associated with chronic renal failure (Primary Dx) 05/09/2025 2:30 PM EDT Office Visit [facility] at [address] [address] Marilu Anderson MBBS Anemia, chronic disease (Primary Dx); Anemia associated with chronic renal failure; Acute myeloid leukemia in remission 05/09/2025 1:40 PM EDT - 05/09/2025 11:59 PM EDT Hospital Encounter [facility] [address] [place] [address] Marilu Anderson MBBS Discharge Disposition: Home or Self Care 05/05/2025 Refill Procedure Suite, [address], 6th [place] [address] Ro Estrada, ASSISTANT MANAGER/EMBALMER Medication Refill 05/03/2025 Orders Only Procedure Suite, [address], 6th [place] [address] Ro Estrada, ASSISTANT MANAGER/EMBALMER 05/02/2025 Orders Only [facility] at [address] [address] Felicia Trejo MA 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) 05/02/2025 Refill Procedure Suite, [address], [address] [place] [address] Ro Estrada, ASSISTANT MANAGER/EMBALMER Medication Refill 04/22/2025 3:00 PM EDT Infusion [facility] at [address] [address] Marilu Anderson MBBS O'Donnell, Kaitlin, GREGORIA Anemia associated with chronic renal failure (Primary Dx) 04/22/2025 1:50 PM EDT - 04/22/2025 11:59 PM EDT Hospital Encounter [facility] [address] [place] [address] Marilu Anderson MBBS Discharge Disposition: Home or Self Care 04/18/2025 Orders Only [facility] at [address] [address] Lit Allen CMA 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) 04/13/2025 Refill Procedure Suite, [address], [address] [place] [address] Ro Estrada, ASSISTANT MANAGER/EMBALMER Medication Refill 04/13/2025 Orders Only Procedure Suite, [address], [address] [place] [address] Ro Estrada NP Acute myeloid leukemia in remission; Chronic pain syndrome 04/08/2025 2:06 PM EDT - 04/08/2025 11:59 PM EDT Hospital Encounter [facility] Laboratory [address] [place] [address] Marilu Anderson MBBS Discharge Disposition: Home or Self Care 04/08/2025 2:00 PM EDT Infusion [facility] at [address] [address] Marilu Anderson MBBS Brumbaugh, Benjamin, GREGORIA Anemia associated with chronic renal failure (Primary Dx) 04/08/2025 1:30 PM EDT Office Visit [facility] at [address] [address] Micaela Cobb CNP 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); Anemia associated with chronic renal failure 04/08/2025 11:50 AM EDT - 04/08/2025 2:05 PM EDT Hospital Encounter [facility] Laboratory [address] [place] [address] Marilu Anderson MBBS Discharge Disposition: Home or Self Care 04/08/2025 Telephone [facility] at [address] [address] Kanchan Torres, GREG[place]IA Labs 04/04/2025 Orders Only [facility] Center at [address] [address] Lit Allen CMA Anemia associated with chronic renal failure (Primary Dx) 04/03/2025 Telephone [facility] Center at [address] [address] Marilu Anderson MBBS pt call re labs / aranesp 04/01/2025 3:15 PM EDT Office Visit [facility] [address] [address] Iglesia Michaud DO Stasis dermatitis (Primary Dx) 03/25/2025 Telephone [facility] [address] [place] [address] Kush Berkowitz 03/22/2025 Telephone [facility] [address] [place] [address] Shaka García MD, PhD 03/21/2025 Telephone [facility] Center [address] [place] [address] LPN lesions of concern 03/13/2025 Refill Division of Hematologic Oncology, [facility] [place] [address] [facility], 8th [place] [address] Ro Estrada NP Medication Refill 02/25/2025 Telephone [facility] [address] [facility] 1st [place] [address] Anjelica Manzano LPN Medication Prior Authorization from Last 3 Months Immunizations Immunization Administration [...] 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 Not on file Not on file Not on file Last Filed Vital Signs Vital Sign Reading Time Taken Comments Blood Pressure 115/64 05/23/2025 1:25 PM EDT Pulse 99 05/23/2025 1:25 PM EDT Temperature 37.8 C (100 F) 05/23/2025 1:25 PM EDT Respiratory Rate 17 01/02/2025 2:25 PM EDT Oxygen Saturation 96% 05/23/2025 1:25 PM EDT Inhaled Oxygen Concentration - - Weight 54.8 kg (120 lb 14.4 oz) 05/23/2025 1:22 PM EDT Height 172 cm (5' 7.72 ) 02/11/2025 3:11 PM EDT Body Mass Index 18.54 02/11/2025 3:11 PM EDT Plan of Treatment Upcoming Encounters Date Type Department Care Team (Late st Contact Info) Description 10/31/2024 Procedure Pass [facility] [address] [place] [address] 05/27/2025 10:30 AM EDT Office Visit [facility] [address] [place] [address] Lily Cuevas MD [address] [place] [address] [email or web address] 05/30/2025 3:00 PM EDT Appointment Echo Lab [address] [place] [address] Jose Vela, [facility] [address] [place] [address] 06/07/2025 8:10 AM EDT Appointment [facility] [address] [place] [address] Marilu Anderson MBBS [address] [place] [address] 06/07/2025 9:00 AM EDT Office Visit [facility] [place] [address] [place] [address] Marilu Anderson MBBS [address] [place] [address] 06/07/2025 11:00 AM EDT Infusion [facility] at [address] [address] Marilu Anderson [address] [address] 06/21/2025 9:10 AM EDT Appointment [facility] [address] [place] [address] Marilu Anderson [address] [address] 06/21/2025 10:00 AM EDT Office Visit [facility] at [address] [address] Marilu Anderson [address] [address] 06/21/2025 11:40 AM EDT Infusion [facility] Center at [address] [address] Marilu Anderson [address] [address] 09/11/2025 1:00 PM EST Office Visit [facility] [address] [place] [address] 3rd Floor, [address] [place] [address] Segun Finnegan MD [address] [place] [address] Health Maintenance Due Date Last Done Comments [...] 04/23/2025 04/23/2015 , 10/05/2010, 11/03/2009 BLOOD PRESSURE 11/20/2025 05/23/2025 TSH LEVEL 01/02/2026 01/02/2025, 1112/2023, 06/19/2024, Additional history exists CREATININE LEVEL 05/09/2026 05/09/2025, , 04/08/2025, Additional history exists POTASSIUM LEVEL 05/09/2026 05/09/2025, 04/05, 04/08/2025, Additional history exists LIPID PANEL 01/02/2030 01/02/2025, [...] PNEUMOCOCCAL VACCINES (50+ years) Completed 02/06/2025, 07/19/2005 INFLUENZA VACCINE Completed 05/21/2025, , 06/10/2023, Additional history exists SMOKING STATUS SCREENING (Once After 26 Yrs) Completed 05/23/2025 HEPATITIS A VACCINES Aged Out No long [...] 05/23/2025 12:17 PM EDT Anemia, chronic disease FERRITIN Routine 05/23/2025 12:17 PM EDT Anemia, chronic disease CBC AND DIFFERENTIAL Routine 05/23/2025 12:17 PM EDT Anemia associated with chronic renal failure COMPREHENSIVE METABOLIC PANEL Routine 05/09/2025 1:52 PM EDT Acute myeloid leukemia in remission CBC AND DIFFERENTIAL Routine 05/09/2025 1:52 PM EDT Acute myeloid leukemia in remission COMPREHENSIVE METABOLIC PANEL Routine 04/22/2025 2:51 PM [...] EDT Anemia associated with chronic renal failure LIPID PANEL Routine 01/02/2025 1:45 PM EDT [...] Relevant to Health Maintenance Results * (ABNORMAL) Reticulocytes (05/23/2025 12:17 PM EDT) Pathologist [facility] RETIC (%) 1.9 0.7 - 2.5 % [facility] RETIC (ABSOLUTE) 0.0540 0.0164 - 0.0776 M/uL [facility] RETIC HGB EQUIV 23.20(L) 26.7 - 35.5 pg [facility] Comment:Decreased Retic HE i ndicates low iron availability. Retics, immature(%) 11.8 3.0 - 15.9 % [facility] Blood 05/23/2025 12:1 7 PM EDT 05/23/2025 12:20 PM EDT us Marilu RICHARDSON LAB BLOOD ORDERABLES Final R esult [facility] [address] [place] [address] * (ABNORMAL) Iron and iron binding capacity (05/23/2025 12:17 PM EDT) Only the most recent of2 resultswithin the time period is included. IRON 18(L) 30 - 160 ug/dL [facility] IRON BINDING CAPACITY 254 228 - 428 ug/dL [facility] TRANSFERRIN SATURAT. 7(L) 15 - 50 % [facility] Blood 05/23/2025 12:1 7 PM EDT 05/23/2025 12:20 PM EDT us Marilu ESQUIVEL LAB BLOOD ORDERABLES Final R esult [facility] [address] [place] [address] * (ABNORMAL) CBC and differential (05/23/2025 12:17 PM EDT) Only the most recent of4 resultswithin the time period is included. Pathologist [facility] WBC 7.87 4.00 - 11.00 K/uL [facility] RBC 2.50(L) 4.00 - 5.20 M/uL [facility] HGB 8.1(L) 12.0 - 16.0 g/dL [facility] HCT 23.7(L) 36.0 - 46.0 % [facility] PLT 153 150 - 450 K/uL [facility] Comment:Lauren Lai from the [facility] was notified of this delta change. MCV 94.8 80.0 - 100.0 fL [facility] MCH 32.4(H) 27.0 - 31.0 pg [facility] MCHC 34.2 32.0 - 36.0 g/dL [facility] RDW 18.6(H) 11.5 - 14.5 % [facility] MPV 9.4 8.4 - 12.0 fL [facility] NRBC 0.00 0.00 /100 WBCs [facility] ABSOLUTE NRBC 0.00 0.00 K/uL [facility] DIFF METHOD Auto [facility] NEUTS 76.4(H) 48.0 - 76.0 % [facility] LYMPHS 11.9(L) 18.0 - 41.0 % [facility] MONOS 7.6 4.0 - 11.0 % [facility] EOS 3.6 0.0 - 5.0 % [facility] BASOS 0.1 0.0 - 1.5 % [facility] Granulocytes, immature (%) 0.4 0.0 - 0.9 % [facility] ABSOLUTE NEUTS 6.01 1.92 - 7.60 K/uL [facility] ABSOLUTE LYMPHS 0.94 0.72 - 4.10 K/uL [facility] ABSOLUTE MONOS 0.60 0.16 - 1.10 K/uL [facility] ABSOLUTE EOS 0.28 0.00 - 0.50 K/uL [facility] ABSOLUTE BASOS 0.01 0.00 - 0.15 K/uL [facility] Granulocytes, immature 0.03 0.00 - 0.09 K/uL [facility] SCHISTOCYTES 1+(A) None [facility] TARGET CELLS PRESENT(A ) None [facility] Blood 05/23/2025 12:1 7 PM EDT 05/23/2025 12:20 PM EDT [facility] BLOOD ORDERABLES Final R esult Performing Organization Address City/[facility]/ZIP Co de Phone Number [address] [address] * Ferritin (05/23/2025 12:17 PM EDT) Only the most recent of2 resultswithin the time period is included. FERRITIN 71 13 - 150 ug/L [facility] Blood 05/23/2025 12:1 7 PM EDT 05/23/2025 12:20 PM EDT [facility] BLOOD ORDERABLES Final R esult [address] [address] * (ABNORMAL) Comprehensive metabolic panel (05/09/2025 1:52 PM EDT) Only the most recent of3 resultswithin the time period is included. SODIUM 136 133 - 146 mmol/L [facility] POTASSIUM 5.0 3.3 - 5.1 mmol/L [facility] CHLORIDE 100 96 - 108 mmol/L [facility] CO2 27 21 - 35 mmol/L [facility] BUN 25(H) 6 - 19 mg/dL [facility] CREATININE 1.10 0.5 - 1.5 mg/dL [facility] GLUCOSE 164(H) 70 - 99 mg/dL [facility] ALBUMIN 4.2 3.9 - 4.8 g/dL [facility] TOTAL PROTEIN 6.6 6.5 - 8.0 g/dL [facility] CALCIUM 9.0 8.4 - 10.3 mg/dL [facility] ALKALINE PHOSPHATASE 153(H) 39 - 117 U/L [facility] TOTAL BILIRUBIN 0.3 0.0 - 1.2 mg/dL [facility] AST 23 0 - 37 U/L [facility] ALT 20 0 - 40 U/L [facility] GLOBULIN 2.4 1 - 4.8 g/dL [facility] EGFR 54(L) >59 mL/min/1.7 3m2 [facility] Comment:Estimated glomerular filtration rate calculated using the CKD-EPI refit equation. ANION GAP 14 10 - 20 mmol/L [facility] Blood 05/09/2025 1:52 PM EDT 05/09/2025 1:56 PM EDT us Marilu ESQUIVEL LAB BLOOD ORDERABLES Final R esult [address] [address] * (ABNORMAL) Folate (04/08/2025 2:06 PM EDT) FOLIC ACID >20.0(H) 4.2 - 19.9 ng/mL [facility] Blood 04/08/2025 2:06 PM EDT 04/08/2025 2:20 PM EDT us Micaela Cobb CNP LAB BLOOD ORDERABLES Final Resul t [address] [address] * Lab Add On: iron, iron sat, ferritin, folate, vit b12 (04/08/2025 1:32 PM EDT) TEST REQUESTED IRON, IRON SAT, FERRITIN, FOLATE, VIT B12 [facility] Comments (Chemistry) Add on order being processed. Floor or provider will be notified if testing cannot be performed [facility] 04/08/2025 1:32 PM EDT 04/08/2025 1:58 PM EDT us Micaela Cobb CNP LAB BLOOD ORDERABLES Edited Resu lt - Final Performing Organization Address [facility]/ZIP Co de Phone Number [address] [address] * Pathology review (04/08/2025 12:00 PM EDT) PATH REVIEW NO ABNORMAL WBCS [facility] Comment:Reviewed by Chao cárdenas MD 04/08/2025 12:0 0 PM EDT 04/08/2025 12:02 PM EDT us Marilu RICHARDSON LAB BLOOD ORDERABLES Final R esult Performing Organization Address [facility]/ZIP Co de Phone Number [address] [address] * Vitamin B12 (04/08/2025 12:00 PM EDT) VITAMIN B12 851 232 - 1,245 pg/mL [facility] 04/08/2025 12:0 0 PM EDT 04/08/2025 12:02 PM EDT us Marilu RICHARDSON LAB BLOOD ORDERABLES Final R esult Performing Organization Address City/[facility]/ZIP Co de Phone Number [address] [address] * TSH (01/02/2025 1:45 PM EDT) TSH 1.53 0.27 - 4.20 uIU/mL [facility] LIC# [id number] Blood 01/02/2025 1:45 PM EDT 01/02/2025 1:46 PM EDT Ro Estrada ASSISTANT MANAGER/EMBALMER LAB BLOOD ORDERABLES Final Result Performing Organization Address [facility] Co de Phone Number [facility] LIC# [id number] [address] [place] [address] * (ABNORMAL) Lipid panel (01/02/2025 1:45 PM EDT) CHOLESTEROL 198 <200 mg/dL [facility] LIC# [id number] TRIGLYCERIDES 129 35 - 150 mg/dL [facility] LIC# [id number] HDL 104(H) 40 - 80 mg/dL [facility] LIC# [id number] CALCULATED LDL 68 50 - 129 mg/dL [facility] LIC# [id number] VLDL 26 <31 mg/dL [facility] LIC# [id number] CARDIAC RISK RATIO 1.9 0.0 - 5.0 [facility] LIC# [id number] Blood 01/02/2025 1:45 PM EDT 01/02/2025 1:46 PM EDT us Ro Estrada ASSISTANT MANAGER/EMBALMER LAB BLOOD ORDERABLES Final Result Performing Organization Address [facility] Co de Phone Number [facility] LIC# [id number] [address] [place] [address] * ENDOSCOPY, SIGMOID (02/04/2015 12:07 PM EDT) 02/04/2015 12:0 7 PM EDT Narrative 02/04/2015 1:39 PM EDT Report Number: [id number] Report Status: Signed Type: Flexible Sigmoidoscopy Date: 02/04/2015 12:07 [facility] Gastroenterology Patient Name: John Lin [...] - 02/04/2015 12:07 PM EDT Report Number: [id number] Report Status:Signed Type: Flexible Sigmoidoscopy Date: 02/04/2015 12:07 [facility] Gastroenterology Patient Name: John Lin [...] Narrative 03/31/2010 6:35 PM EDT Exam Number: [id number] Report Status: Final Type: QDR 1 OR MORE LOCATIONS Date/Time: 03/30/2010 15:07 Exam Code: B410 Ordering Provider: CHUN ENCISO MD REPORT: Bone Density Report Name: JOHN LIN Age: 54 Sex: Female Ethnicity: White Date of : 1955 Indication: postmenopause, steroid use Referring Physician: CHUN ENCISO MD Study: Bone densitometry was performed. Exam Date: March 30, 2010 Accession number: [id number] Bone Density: Region BMD T-Score Z-Score Classification [...] MD on 03/31/2010 5:50:00 PM. RADIOLOGISTS: SIGNATURES: ORSALIA CROW ANGELA ANN Finalized on: 03/31/2010 18:35 Procedure Note Sys, Conversion Provider Not In - 01/21/2015 Exam Number: [id number] Report Status: Final Type: QDR 1 OR MORE LOCATIONS Date/Time: 03/30/2010 15:07 Exam Code: B410 Ordering Provider: CHUN ENCISO MD REPORT: Bone Density Report Name: JOHN LIN Age: 54 Sex: Female Ethnicity: White Date of : 1955 Indication: postmenopause, steroid use Referring Physician: CHUN ENCISO MD Study: Bone densitometry was performed. Exam Date: March 30, 2010 Accession number: [id number] Bone Density: Region BMD T-Score Z-Score Classification [...] (10/16/2009 7:00 PM EST) HBsAg NEGATIVE NEGATIVE [facility] HCV NEGATIVE NEGATIVE [facility] 10/16/2009 7:00 PM EST Comment:BLOOD us Chun Enciso MD LAB BLOOD ORDERABLES Final Result [address] [address] from Last 3 Months or Most Recently Relevant to Health Maintenance Insurance MEDICARE PART A & B [facility] & [facility] & [facility]IC[facility] PART A & B [place] [facility] PART [facility] & [facility] [place] [employer] [place] & B Advance Directives For more information, please contact: [phone] (9AM - 5PM [facility], Tuesday-Tuesday) * Full Code (Latest Code Status on File) Date Activated Date Inactivated Comments 06/07/2024 3:32 AM Question Answer Comments Code Status Confirmed With: Patient Care Teams Junior Financial Analyst Relationship Specialty Start Date End Date Eva Monreal MD [address] [place] [id number] [email or web address] PCP - General Internal Medicine 04/03/19 Chun Enciso MD [address] [place] [phone] Historical LMR Provider 01/16/15 Aydee Flores, [facility] [address] [place] [address] [email or web address] Department Supervisor Oncology 06/09/21 Theresa Sweet [address] [place] [address] 10/06/22 Daniel Reed [address] [place] [address] [email or web address] Hat Lining Paster 06/21/21 Magalis Fong MD [address] [place] [id number] Gastroenterology 09/12/23 Micaela Cobb CNP [address] [place] [phone] [email or web address] Nurse Practitioner Medical Oncology 04/05/25 Marilu Anderson MBBS [address] [place] [phone] [email or web address] Primary Oncologist Hematology and Oncology 05/02/25 Valeri Morales FNP [address] [place] [phone] [email or web address] Nurse Practitioner Medical Oncology 05/15/25 Marilu Anderson MBBS [address] [place] [phone] [email or web address] Primary Oncologist Hematology and Oncology 05/15/25 Additional Source Comments The information contained in this document represents components of the legal health record. It is not the complete legal health record.[facility]
[2025-05-25] MEDS: Diphth,Pertus(ACell),Tet Adult 0.5 ML SYRINGE IM (01:45)
[2025-05-25] MEDS: Lidocaine HCl 1%/Epi 1:100,000 10 ML VIAL INFILTRATI ×3 (01:45)
--- NOTE | 2025-05-25 02:28 | ED.EXTPRO ---
HPI - Extremity Problem General Chief complaint: Extremity Injury, Upper Stated complaint: Fall, 3-4in Lac on L bicep Time Seen by Provider: 05/25/25 01:24 Source: patient Limitations: no limitations History of Present Illness ED Provider: Salome Babcock PA-C HPI Narrative: 70-year-old female with a history of hypertension, hypothyroidism, paroxysmal AFib on Eliquis, AML status post stem cell transplant in remission for 15 years, iron deficiency anemia, post herpetic neuralgia, chronic pain, OCD, depression, who presents after mechanical fall at home. Patient states she slid out of her chair, lacerating her left upper arm on a musical instrument. Patient is not sure if her tetanus is up-to-date. There was no head strike, no loss consciousness. Related Data Home Medications ?Medication ?Instructions ?Recorded ?Confirmed gabapentin 300 mg capsule 600 mg PO TID 10/13/23 04/02/25 oxycodone 5 mg tablet 10 mg PO Q4H PRN Pain 10/13/23 04/02/25 estradiol 0.01% (0.1 mg/gram) 1 appl vaginal MARRUFO 10/28/23 04/02/25 vaginal cream famotidine 20 mg tablet 20 mg PO BID 10/28/23 04/02/25 folic acid 1 mg tablet 1 mg PO DAILY 10/28/23 04/02/25 losartan 25 mg tablet 25 mg PO DAILY 10/28/23 04/02/25 valacyclovir 500 mg tablet 500 mg PO BID 02/20/24 04/02/25 hydroxyzine HCl 25 mg tablet 25 mg PO Q8H PRN itching 07/13/24 04/02/25 diltiazem HCl 240 mg 240 mg PO DAILY 08/10/24 04/02/25 capsule,extended release 24 hr empagliflozin 10 mg tablet 10 mg PO DAILY 08/10/24 04/02/25 (Jardiance) Lactobacillus acidophilus 10 10,000 mmu cells PO DAILY 09/23/24 04/02/25 billion cell capsule (Probiotic) acetaminophen 500 mg tablet 500 mg PO Q6H PRN Pain 09/23/24 04/02/25 multivitamin 1 tab PO DAILY 09/23/24 04/02/25 cyclosporine 0.05 % eye drops in a 1 drp ophthalmic (eye) BID 11/16/24 04/02/25 dropperette (Restasis) duloxetine 60 mg capsule,delayed 60 mg PO BID 11/16/24 04/02/25 release levothyroxine 112 mcg tablet 112 mcg PO DAILY@0600 11/16/24 04/02/25 aspirin 81 mg tablet,delayed 81 mg PO DAILY 04/02/25 04/02/25 release clopidogrel 75 mg tablet 75 mg PO DAILY 04/02/25 04/02/25 lamotrigine 25 mg tablet mg PO 04/02/25 04/02/25 Previous Rx's ?Medication ?Instructions ?Recorded lorazepam 0.5 mg tablet 0.5 mg PO DAILY PRN anxiety #30 08/10/24 tabs cephalexin 500 mg tablet 500 mg PO QID #28 tabs 11/19/24 mupirocin 2 % topical ointment 1 appl topical TID #22 grams 11/19/24 mirtazapine 7.5 mg tablet 7.5 mg PO BEDTIME #90 tabs 03/04/25 Allergies Allergy/AdvReac Type Severity Reaction Status Date / Time vancomycin (VANCOMYCIN) Allergy Mild HIVES Verified 05/25/25 00:23 imipenem (IMIPENEM) Allergy Unknown HIVES Verified 05/25/25 00:23 Penicillins (PENICILLINS) Allergy Unknown UNKNOWN Verified 05/25/25 00:23 lisinopril (LISINOPRIL) AdvReac Unknown COUGH Verified 05/25/25 00:23 Review of Systems Review of Systems: Yes all other systems are reviewed and are negative Constitutional: Constitutional: Denies fatigue and Denies fever(s) Cardiovascular: Cardiovascular: Denies chest pain and Denies dyspnea Respiratory: Respiratory: Denies dyspnea Musculoskeletal: Musculoskeletal: Denies arthralgias and Denies joint swelling Integumentary/Breasts: Skin/Breast: Reports wounds Endocrine: Endocrine: Denies fatigue PMFSH Past Medical History Attestation statement: The following information was validated with the patient. Medical History OCD (obsessive compulsive disorder) Left shoulder pain PAF (paroxysmal atrial fibrillation) Major depressive disorder, recurrent, moderate Dysthymia Post herpetic neuralgia Social History Social History Household Members: None Housing: House Do you presently have visiting nurse or other home services: No Alcohol intake: current Alcohol intake frequency: holidays/special occasions only Patient Tobacco Use Status: Never used Tobacco Smoked in Last 30 Days: No Use of substances other than those prescribed or required for medical reasons: No Substance Use Type: Marijuana Advance Directives: No Advance Directives Information Provided: Yes Advance Directives Date on File: 11/16/24 service: No Physical Exam Vital Signs: Vital Signs: Last Vital Signs Temp 98.0 F 05/25/25 05:52 Pulse 71 05/25/25 05:52 Resp 12 05/25/25 05:52 BP 99/50 L 05/25/25 05:52 Pulse Ox 99 05/25/25 05:18 O2 Del Method Room Air 05/25/25 05:18 BMI result Body Mass Index 20.0 Const: Other: Alert, no sign of head trauma on exam Orientation/consciousness: patient oriented x3 Resp: Effort & Inspection: normal respiratory effort Cardio: Other: Normal peripheral perfusion Skin: Other: Warm dry no rash Neuro: Other: Unsteady gait General: patient oriented x3, no focal motor deficits and CN's II-XI intact bilaterally Extrem: Other: 11 centimeter linear laceration deep to subcutaneous tissue along upper left extremity, minimally bleeding. Patient able to fully flex and extend from the left elbow, she can raise her arm above her head full range of motion at the shoulder, Psych: Other: Cooperative Medications Administered Discontinued Medications Generic Name Dose Route Start Last Admin Trade Name Freq PRN Reason Stop Dose Admin Acetaminophen 975 mg 05/25/25 02:51 05/25/25 04:43 Acetaminophen 325 Mg Tablet PO 05/25/25 02:52 975 mg ONCE ONE Administration Diphtheria/Tetanus/Acell Pertussis 0.5 ml 05/25/25 01:24 05/25/25 01:45 Diphth,Pertus(Acell),Tet Adult 0.5 Ml Syringe IM 05/25/25 01:25 0.5 ml .ONCE ONE Administration Lidocaine/Epinephrine 10 ml 05/25/25 01:24 05/25/25 01:45 Lidocaine Hcl 1%/Epi 1:100,000 10 Ml Vial INFILTRATI 05/25/25 01:25 10 ml ONCE ONE Administration Lidocaine/Epinephrine 10 ml 05/25/25 01:24 05/25/25 01:45 Lidocaine Hcl 1%/Epi 1:100,000 10 Ml Vial INFILTRATI 05/25/25 01:25 10 ml ONCE ONE Administration Lidocaine/Epinephrine 10 ml 05/25/25 01:24 05/25/25 01:45 Lidocaine Hcl 1%/Epi 1:100,000 10 Ml Vial INFILTRATI 05/25/25 01:25 10 ml ONCE ONE Administration Medical Decision Making Medical Decision Making MDM Narrative: 70-year-old female with a history of hypertension, hypothyroidism, paroxysmal AFib on Eliquis, AML status post stem cell transplant in remission for 15 years, iron deficiency anemia, post herpetic neuralgia, chronic pain, OCD, depression, who presents after mechanical fall at home. Patient states she slid out of her chair, lacerating her left upper arm on a musical instrument. Patient is not sure if her tetanus is up-to-date. There was no head strike, no loss consciousness. Problem: AFib, anticoagulated, prior AML, anemia History: Per patient I have considered the following differential diagnoses: Intracranial hemorrhage, fracture, dislocation, laceration, contusion Plan: The laceration was going to require simple repair, we are updating tetanus vaccine, she is not sure if it is up-to-date, we are about to discharge the patient, she was up to ambulate she was very unsteady on her feet, airing on the side of caution, we decided to obtain labs, the patient was found to be critically anemic, she has been consented for blood transfusion and we will be admitted. Guaiac negative. She did not strike her head, given she is anticoagulated, I am going to obtain a CT scan. I have independently reviewed the following tests: Labs: No leukocytosis, critical anemia at 6.5 and 18.4, thrombocytopenia 119, acute kidney injury a 1.41, no additional electrolyte abnormality, ethanol less than 10, guaiac negative CT brain:MPRESSION: 1. No acute intracranial findings. Differential Diagnosis Differential Diagnoses: The differential diagnosis associated with the presentation includes See medical decision-making Admission/Observation Consideration of admission/observation: Escalation of care including admission/observation considered Admit Consult Healthcare Provider Management of the patient was discussed with: Hospitalist Lab Data [facility] Lab Attestation statement: I reviewed the patient's lab results. 05/25/25 03:41 05/25/25 03:41 Labs: Lab Results 05/25/25 05/25/25 05/25/25 Range/Units 03:41 04:24 05:22 WBC 7.2 (4.8-10.8) X10*3/uL RBC 2.06 L D (4.20-5.50) X10*6/uL Hgb 6.5 L* D (12.0-16.0) g/dl Hct 18.4 L* D (37.0-47.0) % MCV 89.3 (80.0-98.0) fL MCH 31.6 (27.0-33.0) pg MCHC 35.3 H (31.0-35.0) g/dl RDW 18.1 H (11.0-16.0) % Plt Count 119 L D (160-400) X10*3/uL MPV 10.0 (9.4-12.3) fL Immature Gran % (Auto) 0.4 (0.0-0.4) % Neut % (Auto) 72.8 (45-73) % Lymph % (Auto) 16.8 L (20-40) % Knox % (Auto) 7.9 (2-11) % Eos % (Auto) 1.8 (0-4) % Baso % (Auto) 0.3 (0-2) % Lymph # (Auto) 1.2 (1.2-4.9) X10*3/uL Knox # (Auto) 0.6 (0.1-1.2) X10*3/uL Eos # (Auto) 0.1 (0.0-0.4) X10*3/uL Baso # (Auto) 0.0 (0.0-0.2) X10*3/uL Abs Immat Gran (auto) 0.03 (0.00-0.03) X10*3/uL Absolute Neuts (auto) 5.3 (2.0-8.3) x10*3/uL Absolute Nucleated RBC 0.000 (0.0-0.012) X10*3/uL Nucleated RBC % (auto) 0.0 (0.0-0.2) /100WBC Sodium 134 L (135-145) mmol/L Potassium 4.8 (3.3-5.1) mmol/L Chloride 99 (96-108) mmol/L Carbon Dioxide 26 (22-29) mmol/L Anion Gap 14 (12-20) BUN 25 H (9-16) mg/dL Creatinine 1.41 H (0.5-1.4) mg/dL Estim Creat Clear Calc 31.4 Estimated GFR 37 Random Glucose 144 H (60-115) mg/dL Calcium 8.7 D (8.4-10.2) mg/dL Magnesium 2.2 (1.6-2.6) mg/dL Total Bilirubin 0.2 (0.0-1.0) mg/dL AST 26 (5-31) U/L ALT 20 (0-31) U/L Alkaline Phosphatase 207 H (39-117) U/L Total Protein 5.4 L (6.5-8.0) g/dL Albumin 3.3 L (3.5-5.0) g/dL Urine Color Yellow Urine Appearance Clear Urine pH 7.0 (5.0-9.0) Ur Specific Edison 1.010 (1.005-1.025) Urine Protein Negative (Neg-Trace) mg/dL Urine Glucose (UA) 500 H (Negative) mg/dL Urine Ketones Negative (Negative) mg/dL Urine Blood Negative (Negative) Urine Nitrite Negative (Negative) Ur Leukocyte Esterase Trace H (Negative) Urine RBC 0-2 (0-2) /HPF Urine WBC 0-5 (0-5) /HPF Ur Squamous Epith Cells 3-5 (0-2) /HPF Urine Bacteria None Seen (None Seen) Hyaline Casts 0-2 (0-2) /LPF Stool Occult Blood NEGATIVE (NEGATIVE) Ethyl Alcohol < 10 mg/dL Blood Type A Positive Antibody Screen NEGATIVE Crossmatch See Detail Radiology Impression Discussion of test interpretation with radiology: I have reviewed the radiologist's reading. Procedures Laceration Laceration 1: Site: upper extremity Side (If applicable): left Size (cm): 11 Description: linear Depth: simple, single layer Local Anesthetic: with epi Amount of anesthesia used (mL): 30 Pre-repair: irrigated extensively Skin layer closed with: nylon Size (cm): 3-0 Number of sutures: 19 Technique: simple, interrupted Critical Care Time Critical Care Time Critical Care Time: Yes Total Critical Care Time: 45 Attestation: I Salome for a personally performed 45 minutes of critical care time not including lines and procedures; need for hospital admission, critical anemia, blood transfusion Discharge Plan Discharge Clinical Impression: Laceration of left upper extremity, Anemia Patient Disposition: Admitted As Inpatient
--- NOTE | 2025-05-25 03:24 | PC.NURSE ---
pt ambulating with a very unsteady gait, would have fallen if not supported by political organizer. reporting at baseline she walks the dog and plays tennis. provider made aware. no d/c at this time. food and drink provided. labs pending
[2025-05-25 03:44] LABS: MANUAL DIFF FLAG NO
--- NOTE | 2025-05-25 03:44 | MHC.EDTECH ---
Walked pt to the bathroom. Pt was unsteady and had to hold on to me during the walk. As pt was in the bathroom she almost lost her balance and fell. a we were walking back nurse Jasmina observed the pt and i walking and she became unsteady as we were walking back.
[2025-05-25 03:45] LABS: Imm Gran Abs Auto 0.03 X10*3/uL (0.00-0.03); Imm Gran Pct Auto 0.4 % (0.0-0.4); Lymphocytes Absolute Auto 1.2 X10*3/uL (1.2-4.9); Mean Corpuscular HGB Conc 35.3 g/dl (31.0-35.0); Mean Corpuscular Hemoglobin 31.6 pg (27.0-33.0); Mean Corpuscular Volume 89.3 fL (80.0-98.0); NRBC Abs Auto 0.000 X10*3/uL (0.0-0.012); NRBC Pct Auto 0.0 /100WBC (0.0-0.2); Platelet Count 119 X10*3/uL (160-400); Red Blood Count 2.06 X10*6/uL (4.20-5.50); White Blood Count 7.2 X10*3/uL (4.8-10.8)
[2025-05-25 03:50] LABS: Hemoglobin 6.5 g/dl (12.0-16.0)
[2025-05-25 03:51] LABS: Hematocrit 18.4 % (37.0-47.0)
[2025-05-25 04:11] LABS: Alanine Aminotransferase 20 U/L (0-31); Albumin Level 3.3 g/dL (3.5-5.0); Alkaline Phosphatase 207 U/L (39-117); Anion Gap 14 (12-20); Aspartate Amino Transferase 26 U/L (5-31); Blood Urea Nitrogen 25 mg/dL (9-16); Calcium 8.7 mg/dL (8.4-10.2); Carbon Dioxide 26 mmol/L (22-29); Chloride 99 mmol/L (96-108); Creatinine Clr Calc Pharmacy 31.4; Estimated Glomerular Filt Rate 37; Magnesium 2.2 mg/dL (1.6-2.6); Potassium 4.8 mmol/L (3.3-5.1); Sodium 134 mmol/L (135-145); Total Protein 5.4 g/dL (6.5-8.0)
[2025-05-25 05:26] LABS: OBS Int Ctl Valid YES; OBS1 NEGATIVE (NEGATIVE)
[2025-05-25 05:27] LABS: Appearance Urine Clear; Glucose Urine UA 500 mg/dL (Negative); PH 7.0 (5.0-9.0); Specific Gravity - Urine 1.010 (1.005-1.025); UMIC TRIGGER UACC YES
--- NOTE | 2025-05-25 05:39 | PC.NURSE ---
20g IV placed to RAC, 22g IV L wrist. pt resting comfortably at this time. transfusion started. call kishor w/in reach
--- NOTE | 2025-05-25 08:20 | PM.IMHP ---
History of Present Illness Date of Service: 05/25/25 Attending physician on admission: Tanya Maloney Chief Complaint: fall; anemia This is a 70-year-old female who presents to the emergency department after mechanical fall. She tried standing up out of the leather chair she was sitting in but slid off and landed on a musical instrument that was nearby causing a laceration of her left arm. She initially presented for evaluation of the laceration. This was repaired in the ED. After that she got up to walk around and was noted to be weak. For this reason, labs were checked and she was found to be severely anemic. 2 units of blood were ordered and admission request placed. Patient takes Eliquis for atrial fibrillation. She denies use of alcohol or NSAIDs. She denies any rectal bleeding, blood in urine or vomiting with blood. She has a history of chronic anemia and she gets infusions of Aranesp every two weeks. She is unsure when her last colonoscopy was but it was reportedly normal at that time. In the emergency department she was heme occult negative. Review of Systems Review of Systems: Yes all other systems are reviewed and are negative Constitutional: Constitutional: Denies chills and Denies fever(s) ENT: Denies dizziness Cardiovascular: Cardiovascular: Denies chest pain, Denies palpitations and Denies dyspnea Respiratory: Respiratory: Denies cough and Denies dyspnea Gastrointestinal: Gastrointestinal: Denies abdominal pain, Denies melena, Denies hematochezia, Denies nausea and Denies vomiting Neurologic: Denies dizziness Endocrine: Endocrine: Denies palpitations [facility] Medical History OCD (obsessive compulsive disorder) Left shoulder pain PAF (paroxysmal atrial fibrillation) Major depressive disorder, recurrent, moderate Dysthymia Post herpetic neuralgia Social History Household Members: None Housing: House Do you presently have visiting nurse or other home services: No Alcohol intake: current Alcohol intake frequency: holidays/special occasions only Patient Tobacco Use Status: Never used Tobacco Smoked in Last 30 Days: No Use of substances other than those prescribed or required for medical reasons: No Substance Use Type: Marijuana Advance Directives: No Advance Directives Information Provided: Yes Advance Directives Date on File: 11/16/24 service: No Meds Allergies Allergy/AdvReac Type Severity Reaction Status Date / Time vancomycin (VANCOMYCIN) Allergy Mild HIVES Verified 05/25/25 00:23 imipenem (IMIPENEM) Allergy Unknown HIVES Verified 05/25/25 00:23 Penicillins (PENICILLINS) Allergy Unknown UNKNOWN Verified 05/25/25 00:23 lisinopril (LISINOPRIL) AdvReac Unknown COUGH Verified 05/25/25 00:23 Home Medications ?Medication ?Instructions ?Recorded ?Confirmed ?Last Taken ?Type gabapentin 300 mg capsule 600 mg PO TID 10/13/23 05/25/25 05/24/25 History oxycodone 5 mg tablet 10 mg PO Q4H PRN Pain 10/13/23 05/25/25 Unknown History estradiol 0.01% (0.1 mg/gram) 1 appl vaginal MARRUFO 10/28/23 05/25/25 Unknown History vaginal cream famotidine 20 mg tablet 20 mg PO BID 10/28/23 05/25/25 05/24/25 History folic acid 1 mg tablet 1 mg PO DAILY 10/28/23 05/25/25 05/24/25 History losartan 25 mg tablet 25 mg PO DAILY 10/28/23 05/25/25 05/24/25 History valacyclovir 500 mg tablet 500 mg PO BID 02/20/24 05/25/25 05/24/25 History hydroxyzine HCl 25 mg tablet 25 mg PO Q8H PRN itching 07/13/24 05/25/25 Unknown History diltiazem HCl 240 mg 240 mg PO DAILY 08/10/24 05/25/25 05/24/25 History capsule,extended release 24 hr empagliflozin 10 mg tablet 10 mg PO DAILY 08/10/24 05/25/25 05/24/25 History (Jardiance) acetaminophen 500 mg tablet 500 mg PO Q6H PRN Pain 09/23/24 05/25/25 Unknown History multivitamin 1 tab PO DAILY 09/23/24 05/25/25 05/24/25 History cyclosporine 0.05 % eye drops in a 1 drp ophthalmic (eye) BID 11/16/24 05/25/25 05/24/25 History dropperette (Restasis) duloxetine 60 mg capsule,delayed 60 mg PO BID@0700,1400 11/16/24 05/25/25 05/24/25 History release levothyroxine 112 mcg tablet 112 mcg PO DAILY@0600 11/16/24 05/25/25 05/24/25 History aspirin 81 mg tablet,delayed 81 mg PO DAILY 04/02/25 05/25/25 05/24/25 History release clopidogrel 75 mg tablet 75 mg PO DAILY 04/02/25 05/25/25 05/24/25 History lamotrigine 25 mg tablet 50 mg PO BID 04/02/25 05/25/25 05/24/25 History furosemide 20 mg tablet 20 - 40 mg PO DAILY PRN Edema 05/25/25 05/25/25 Unknown History niacinamide 500 mg tablet 500 mg PO BID 05/25/25 05/25/25 05/24/25 History sulfamethoxazole 800 1 tab PO BID 05/25/25 05/25/25 05/24/25 History mg-trimethoprim 160 mg tablet (Bactrim DS) Physical Exam Vital Signs and Narrative: Vital Signs: Last Vital Signs Temp 97.7 F 05/25/25 08:15 Pulse 74 05/25/25 08:15 Resp 13 05/25/25 08:15 BP 120/50 L 05/25/25 08:15 Pulse Ox 99 05/25/25 05:18 O2 Del Method Room Air 05/25/25 05:18 BMI result Body Mass Index 20.0 Const: General: cooperative, comfortable, alert and awake Nutritional Appearance: average body habitus Orientation/consciousness: patient oriented x3 Resp: Effort & Inspection: normal respiratory effort, able to speak in complete sentences, no respiratory distress and no use of accessory muscles Cardio: Rate: regular rate GI: Inspection: No distended Palpation (GI): Soft to palpation and nontender Skin: Other: left arm wrapped in clean/dry/intact gauze dressing Neuro: General: patient oriented x3, moves all extremities and CN's II-XI intact bilaterally Results Labs 05/25/25 03:41 05/25/25 03:41 Labs: Laboratory Results - last 24 hr 05/25/25 05/25/25 05/25/25 03:41 04:24 05:22 MCV 89.3 MCH 31.6 MCHC 35.3 H RDW 18.1 H Plt Count 119 L D MPV 10.0 Immature Gran % (Auto) 0.4 Neut % (Auto) 72.8 Lymph % (Auto) 16.8 L Winston % (Auto) 7.9 Eos % (Auto) 1.8 Baso % (Auto) 0.3 Lymph # (Auto) 1.2 Winston # (Auto) 0.6 Eos # (Auto) 0.1 Baso # (Auto) 0.0 Abs Immat Gran (auto) 0.03 Absolute Neuts (auto) 5.3 Absolute Nucleated RBC 0.000 Nucleated RBC % (auto) 0.0 Anion Gap 14 Estim Creat Clear Calc 31.4 Estimated GFR 37 Random Glucose 144 H Calcium 8.7 D Magnesium 2.2 Total Bilirubin 0.2 AST 26 ALT 20 Alkaline Phosphatase 207 H Total Protein 5.4 L Albumin 3.3 L Urine Color Yellow Urine Appearance Clear Urine pH 7.0 Ur Specific Patrick 1.010 Urine Protein Negative Urine Glucose (UA) 500 H Urine Ketones Negative Urine Blood Negative Urine Nitrite Negative Ur Leukocyte Esterase Trace H Urine RBC 0-2 Urine WBC 0-5 Ur Squamous Epith Cells 3-5 Urine Bacteria None Seen Hyaline Casts 0-2 Stool Occult Blood NEGATIVE Ethyl Alcohol < 10 Blood Type A Positive Antibody Screen NEGATIVE Crossmatch See Detail Assessment and Plan (1) Anemia: Status: Acute Plan This is a 69-year-old female with a PMH significant for paroxysmal AFib on Eliquis, AML s/p stem cell transplant in remission for past 15 years, HTN, hypothyroidism, GERD, and mood disorder who presents to the ED after mechanical fall with left arm laceration found to have severe anemia Symptomatic anemia H/H down to 6.5/18.5 with baseline hematocrit around 25/26 no obvious active bleeding. heme negative, denies melena check iron studies 2U blood have been ordered follow post-transfusion H/H as there is no active bleeding, will continue asa, plavix CKD3 near baseline post herpetic neuralgia/chronic pain Continue oxycodone, gabapentin, cymbalta Paroxysmal AFib s/p watchman procedure in March no longer on Eliquis continue asa, plavix continue diltiazem LLE cellulitis diagnosed outpatient has been taking bactrim due to upward trend of creatinine, will transition to doxycycline HTN Continue losartan Hypothyroidism Continue levothyroxine GERD Continue famotidine Mood disorder Continue baseline meds Full Code DVT Prophylaxis: on DAPT, mechanical devices Quality Stroke Does the patient have a stroke diagnosis?: No VTE Prior VTE?: No VTE Risk Level:: Medical - moderate - high VTE Device Contraindication: N/A - Device Ordered VTE Drug Contraindication: Treatment Not Indicated
[2025-05-25 09:01] LABS: Iron 7 mcg/dL (30-160); Percent Iron Saturation 4 % (15-50); Total Iron Binding Capacity 198 mcg/dL (228-428); Unsaturated Iron Binding 191 ug/dL
[2025-05-25 09:11] LABS: Ferritin 97 ng/mL (10-250)
--- NOTE | 2025-05-25 09:54 | HO.NURTONUR ---
70 yr old female admitted for acute anemia. Pt comes to ED s/p mechanical fall in which she acquired a laceration to E. Lac repaired on ED. Pt reported feeling weak and exhibited unsteady walking. Blood labs showed H/H of 6.5/18.5 Pt received 2 units of blood in ED. Soft BP's noted. A&Ox3 VSS, afebrile--BP's have improved with transfusions. Pt ambulates with 1 assist d/t unsteady. Regular diet 20g to RAC and 22g L wrist.
--- NOTE | 2025-05-25 11:43 | PHA.MEDREC ---
Addendum entered by Jadiel Cunningham RPh 05/25/25 12:57: MED REC REVIEWED BY [facility] Original Note: Pharmacy Consult ? Medication Reconciliation Pharmacy has completed the medication reconciliation. Confirmed medication list with patient. Patient confirmed taking 50 mg BID of lamotrigine. Patient confirmed duloxetine dosing. Patient confirmed 1 application on Sundays for estradiol cream at home. Patient confirmed lorazepam 0.5 mg tablet is PRN, and requested them for overnight in hospital. Patient request only fill and take furosemide if transferred to room with bathroom attached. All non-PRN medications were taken yesterday.
[2025-05-25] MEDS: oxyCODONE HCl Immed Release 5 MG TABLET 10 MG PO ×2 (13:05→20:56)
[2025-05-25 13:28] LABS: Hematocrit 24.5 % (37.0-47.0); Hemoglobin 8.9 g/dl (12.0-16.0)
[2025-05-25] MEDS: 0.9 % Sodium Chloride Flush 3 ML SYRINGE IVFLUSH ×2 (14:58→20:55)
--- NOTE | 2025-05-25 17:46 | PC.NURSE ---
Wound care performed to multiple open areas on lower extremities: RLE Large laceration noted. No bleeding. Verbal orders received from attending to apply ster-strips as wound is outside of timeframe that would be appropriate for sutures. Wound cleansed with sterile water and pat dry with sterile gauze. Steri strips applied and covered with gauze wrap. Pt tolerated well. LLE: Top of foot and ayala area with open wounds. No bleeding. Scant amount of clear drainage noted. Wound cleanse with sterile water and pat dry with sterile gauze. non adherent cut to size placed over wounds and covered with sterile gauze secured by gauze wrap. Pt tolerated well.
[2025-05-25] MEDS: Artificial Tears 15 ML DROPS 2 DROP EYE-BOTH (22:05)
[2025-05-26 03:08] VITALS: BP 119/58; PULSE 86; RESP 18; TEMP 36.7
[2025-05-26 05:46] LABS: Hematocrit 23.6 % (37.0-47.0); Hemoglobin 8.6 g/dl (12.0-16.0); Mean Corpuscular HGB Conc 36.4 g/dl (31.0-35.0); Mean Corpuscular Hemoglobin 32.3 pg (27.0-33.0); Mean Corpuscular Volume 88.7 fL (80.0-98.0); NRBC Abs Auto 0.000 X10*3/uL (0.0-0.012); NRBC Pct Auto 0.0 /100WBC (0.0-0.2); Platelet Count 113 X10*3/uL (160-400); Red Blood Count 2.66 X10*6/uL (4.20-5.50); White Blood Count 5.9 X10*3/uL (4.8-10.8)
[2025-05-26 05:58] LABS: Anion Gap 12 (12-20); Blood Urea Nitrogen 22 mg/dL (9-16); Calcium 8.4 mg/dL (8.4-10.2); Carbon Dioxide 23 mmol/L (22-29); Chloride 108 mmol/L (96-108); Creatinine Clr Calc Pharmacy 36.0; Estimated Glomerular Filt Rate 43; Potassium 4.5 mmol/L (3.3-5.1); Sodium 138 mmol/L (135-145)
[2025-05-26] MEDS: oxyCODONE HCl Immed Release 5 MG TABLET 10 MG PO (06:04)
[2025-05-26] MEDS: 0.9 % Sodium Chloride Flush 3 ML SYRINGE IVFLUSH (07:29)
[2025-05-26 08:00] VITALS: BP 113/72; PULSE 90; RESP 16; TEMP 36.7; O2SAT 97
[2025-05-26] MEDS: dilTIAZem HCL CD 240 MG CAP.ER.DEG PO (08:57)
[2025-05-26] MEDS: Aspirin Enteric Coated 81 MG TABLET.DR PO (08:58)
--- NOTE | 2025-05-26 09:28 | PM.DS ---
DS: Providers Provider Date of Service: 05/26/25 Date of admission: 05/25/25 06:15 Date of discharge: 05/26/25 Primary care physician: Unknown Physician DS: Diagnosis Discharge Diagnosis (1) Anemia: Status: Acute DS: Summary Hospital Course Hospital Course: admission hpi Chief Complaint: fall; anemia This is a 70-year-old female who presents to the emergency department after mechanical fall. She tried standing up out of the leather chair she was sitting in but slid off and landed on a musical instrument that was nearby causing a laceration of her left arm. She initially presented for evaluation of the laceration. This was repaired in the ED. After that she got up to walk around and was noted to be weak. For this reason, labs were checked and she was found to be severely anemic. 2 units of blood were ordered and admission request placed. Patient takes Eliquis for atrial fibrillation. She denies use of alcohol or NSAIDs. She denies any rectal bleeding, blood in urine or vomiting with blood. She has a history of chronic anemia and she gets infusions of Aranesp every two weeks. She is unsure when her last colonoscopy was but it was reportedly normal at that time. In the emergency department she was heme occult negative. hospital course This is a 69-year-old female with a PMH significant for paroxysmal AFib on Eliquis, AML s/p stem cell transplant in remission for past 15 years, HTN, hypothyroidism, GERD, and mood disorder who presents to the ED after mechanical fall with left arm laceration found to have severe anemia Symptomatic anemia on top of chronic anemia in setting of bleeding from laceration needing 19 stiches H/H down to 6.5/18.5 with baseline hematocrit around 25/26. She was transfused 2 units of RBC and Hgb is now 8.6 and hematocrit 23, no active bleeding. CKD3, had mild SUDARSHAN but back to baseline, Crat 1.23 post herpetic neuralgia/chronic pain Continue oxycodone, gabapentin, cymbalta Paroxysmal AFib s/p watchman procedure in March no longer on Eliquis continue asa, plavix continue diltiazem LLE cellulitis diagnosed outpatient has been taking bactrim due to upward trend of creatinine, transitioned to doxy HTN Continue losartan Hypothyroidism Continue levothyroxine GERD Continue famotidine Mood disorder Continue baseline meds Time Attestation Discharge Coordination Time (in mins): 35 Quality: Safe Use of Opioids Does Pt have an Active Cancer Diagnosis on the Problem List?: No Quality: Stroke Does the patient have a stroke diagnosis?: No Physical Exam Vital Signs: Vital Signs: Last Vital Signs Temp 98.0 F 05/26/25 08:00 Pulse 90 05/26/25 08:00 Resp 16 05/26/25 08:00 BP 113/72 05/26/25 08:00 Pulse Ox 97 05/26/25 08:00 O2 Del Method Room Air 05/26/25 08:00 BMI result Body Mass Index 18.8 DS: Data Data Completed and Pending Completed studies during hospitalization [Text1]: Procedures Transfusion of Nonautologous Red Blood Cells into Peripheral Vein, Percutaneous Approach (09/22/24) Labs on day of discharge: Laboratory Results - last 24 hr 05/25/25 05/25/25 05/26/25 04:24 12:54 05:24 WBC 5.9 RBC 2.66 L D Hgb 8.9 L D 8.6 L Hct 24.5 L D 23.6 L MCV 88.7 MCH 32.3 MCHC 36.4 H RDW 16.8 H Plt Count 113 L MPV 10.7 Absolute Nucleated RBC 0.000 Nucleated RBC % (auto) 0.0 Sodium Potassium Chloride Carbon Dioxide Anion Gap BUN Creatinine Estim Creat Clear Calc Estimated GFR Random Glucose Calcium Crossmatch See Detail 05/26/25 05:36 WBC RBC Hgb Hct MCV MCH MCHC RDW Plt Count MPV Absolute Nucleated RBC Nucleated RBC % (auto) Sodium 138 Potassium 4.5 Chloride 108 Carbon Dioxide 23 Anion Gap 12 BUN 22 H Creatinine 1.23 Estim Creat Clear Calc 36.0 Estimated GFR 43 Random Glucose 82 Calcium 8.4 Crossmatch Discharge Plan Discharge Anticipated Discharge Date/Time: 05/26/25 09:29 Patient Disposition: Home, Self-Care Discharge Diagnosis: Anemia, Laceration to left arm Referrals: Physician,Unknown J [Primary Care Provider, Medical] - 1 Week Discharge Medications: Continued hydroxyzine HCl 25 mg tablet 25 mg PO Q8H PRN (Reason: itching) multivitamin Tablet 1 tab PO DAILY acetaminophen 500 mg Tablet 500 mg PO Q6H PRN (Reason: Pain) levothyroxine 112 mcg tablet 112 mcg PO DAILY@0600 cyclosporine [Restasis] 0.05 % dropperette 1 drp ophthalmic (eye) BID duloxetine 60 mg capsule,delayed release(DR/EC) 60 mg PO BID@0700,1400 mupirocin 2 % ointment 1 appl topical TID Qty: 22 0RF sulfamethoxazole-trimethoprim [Bactrim DS] 800-160 mg Tablet 1 tab PO BID niacinamide 500 mg Tablet 500 mg PO BID furosemide 20 mg Tablet 20 - 40 mg PO DAILY PRN (Reason: Edema) Rx Instructions: Patient requests not to be given unless transferred to room with bathroom attached. losartan 25 mg tablet 25 mg PO DAILY estradiol 0.01 % (0.1 mg/gram) cream 1 appl vaginal MARRUFO folic acid 1 mg tablet 1 mg PO DAILY famotidine 20 mg tablet 20 mg PO BID valacyclovir 500 mg tablet 500 mg PO BID oxycodone 5 mg tablet 10 mg PO Q4H PRN (Reason: Pain) gabapentin 300 mg capsule 600 mg PO TID diltiazem HCl 240 mg capsule,extended release 24hr 240 mg PO DAILY Jardiance 10 mg tablet 10 mg PO DAILY lorazepam 0.5 mg tablet 0.5 mg PO DAILY PRN (Reason: anxiety) Qty: 30 2RF mirtazapine 7.5 mg tablet 7.5 mg PO BEDTIME Qty: 90 0RF lamotrigine 25 mg tablet 50 mg PO BID clopidogrel 75 mg tablet 75 mg PO DAILY aspirin 81 mg tablet,delayed release (DR/EC) 81 mg PO DAILY Discharge Orders: Discharge Order (Routine); Ordered 05/26/25 Ordered By: Angel Castillo Diet: Advance to usual diet Activity on Discharge: As tolerated Stand Alone Forms: Patient Portal Discharge page Print Language: [place] Activity Restrictions/Additional Instructions: Nineteen stitches were used to repair the laceration. They can be removed in 7 days. Your tetanus vaccine was updated today, it is valid for 10 years. Keep the area clean and dry, do not bathe for at least a day and a half. Do not go in a pool or hot tub or a bath, you can shower normally after a day and a half. Watch for signs of infection which would include redness, swelling, warmth, pus draining from the site or fever. If you develop any of these symptoms, seek medical attention. Otherwise follow up with your primary care provider to have the stitches removed in 1 week. Care Plan Goals: stop taking Bactrim and take Doxycyline instead for cellulitis Health Concerns: anemia cellulitis laceration to the ar Plan of Treatment: stop taking bactrim and take doxycyline instead for cellulitis follow up with all your doctors as before Patient Instructions: Laceration (ED)
--- NOTE | 2025-05-26 10:02 | MHC.CM.PN ---
PT REPORTS SHE LIVES ALONE AT THE [facility] IN [place] SHE IS INDEPENDENT AND USES NO DME NEW HCP COMPLETED TODAY NAMING HER SON, WILLIE, AND DAUGHTER, PETERSON, HER AGENTS PCP: SHAYLEE JENSEN IMM DELIVERED PT WILL DC HOME TODAY WITH NO SERVICES S/O TO TRANSPORT
[2025-05-26 12:13] VITALS: BP 121/56; PULSE 82; RESP 16; TEMP 36.6; O2SAT 96
[2025-05-26 15:11] VITALS: BP 134/70; PULSE 75; RESP 16; TEMP 36.3; O2SAT 96
== END 2025-05-26 12:20 | disposition home or self-care (01) | DRG 812 ==
LOC: HO.ED 05:38 → HO.EDOVER 06:19 → HO.S3 17:01
PROVIDERS: Physician Assistant Medical; Admitting Provider Internal Medicine; Emergency Provider Emergency Medicine; PCP Internal Medicine; Visit Provider Internal Medicine
DX: D50.0 Iron deficiency anemia secondary to blood loss (chronic) (principal); B02.29 Other postherpetic nervous system involvement; C92.01 Acute myeloblastic leukemia, in remission; Z94.84 Stem cells transplant status; L03.116 Cellulitis of left lower limb; N17.9 Acute kidney failure, unspecified; E03.9 Hypothyroidism, unspecified; N18.30 Chronic kidney disease, stage 3 unspecified; I48.0 Paroxysmal atrial fibrillation; K21.9 Gastro-esophageal reflux disease without esophagitis; D63.1 Anemia in chronic kidney disease; S41.112A Laceration without foreign body of left upper arm, initial encounter; I12.9 Hypertensive chronic kidney disease with stage 1 through stage 4 chronic kidney disease, or unspecified chronic kidney disease; W19.XXXA Unspecified fall, initial encounter; Z95.818 Presence of other cardiac implants and grafts; Z79.02 Long term (current) use of antithrombotics/antiplatelets; Z79.82 Long term (current) use of aspirin; Z79.890 Hormone replacement therapy; Z79.899 Other long term (current) drug therapy
CPT/HCPCS: 36415; 70450; 80048; 80053; 80307; 81001; 82272; 82728; 83540; 83735; 85014; 85018; 85025; 85027; 86850; 86900; 86901; 86923; 90715; 99285; J1756; J2004; P9016

== ENCOUNTER → 2025-05-25 03:20 | Outpatient (BNV) | payer MEDICARE, MEDICAID, SELFPAY | PROVIDERS: Admitting Provider Internal Medicine; Emergency Provider Emergency Medicine; Visit Provider Radiology Diagnostic Radiology | DX: Z04.3 Encounter for examination and observation following other accident (principal) | CPT/HCPCS: 70450 ==

== ENCOUNTER → 2025-05-25 06:15 | Outpatient (BNV) | payer MEDICARE, MEDICAID, SELFPAY | PROVIDERS: Admitting Provider Internal Medicine; Emergency Provider Emergency Medicine; Visit Provider Physician Assistant Medical | DX: D64.9 Anemia, unspecified (principal) | CPT/HCPCS: 99223 ==

== ENCOUNTER 2025-06-10 22:06 | Emergency (ER) | payer MEDICARE, MEDICAID, SELFPAY ==
--- NOTE | ~2025-06-10 | CT_ITS ---
CLINICAL HISTORY: fall, on plavix CT head without contrast Comparison: CT/REG/SR - CT HEAD/BRAIN WO IV CON - 05/25/25 03:59 EDT Findings: No intra-axial mass, midline shift, hydrocephalus, or acute hemorrhage. Mild atrophy like change. Opacified left ethmoid and sphenoid sinuses. Mastoids clear. The orbits are unremarkable. Right frontal scalp swelling. No underlying fracture. There is no acute fracture. IMPRESSION: 1. No acute intracranial findings. 2. Left paranasal sinus disease of uncertain chronicity. This document has been electronically signed by: Raffaele Santana MD on 06/11/2025 00:07:59
--- NOTE | ~2025-06-10 | XR_ITS ---
CLINICAL HISTORY: fall, pain 3 view right hand Comparison: CR - XR WRIST RT MIN 3V - 06/11/25 01:16 EDT Findings: Osteopenia. No acute fracture. Cdps-ao-opwgkaah degenerative changes most evident at the lateral carpus. No erosions. No radiopaque foreign body. IMPRESSION: 1. No acute findings This document has been electronically signed by: Raffaele Santana MD on 06/11/2025 01:49:28
--- NOTE | ~2025-06-10 | XR_ITS ---
CLINICAL HISTORY: fall, pain 3 view right wrist Comparison: CR - XR HAND RT MIN 3V - 06/11/25 01:14 EDT Findings: Osteopenia. No acute fracture. Clyl-qs-jfmmnkuz degenerative changes most evident at the 1st carpometacarpal joint. No radiopaque foreign body. IMPRESSION: 1. No acute findings This document has been electronically signed by: Raffaele Santana MD on 06/11/2025 01:47:20
--- NOTE | ~2025-06-10 | CT_ITS ---
CLINICAL HISTORY: fall, neck pain CT cervical spine without contrast Comparison: CT/SR - CT CERVICAL SPINE WO IV CON - 10/19/24 17:39 EST Findings: Mild reversal of cervical lordosis. Grade 1 degenerative spondylolisthesis C2-C3 and C4-C5. No scoliosis. Moderate to severe multilevel disc disease. Razn-ap-ylwzhlui facet disease. Moderate to severe multilevel foraminal stenoses. No acute fractures or dislocations. Visualized intracranial contents are unremarkable. Soft tissues of the neck are normal. Right apical lung postoperative changes. IMPRESSION: Degenerative spondylosis cervical spine. No acute fracture. This document has been electronically signed by: Raffaele Santana MD on 06/11/2025 00:08:05
[2025-06-10 22:20] VITALS: BP 111/72; BP 112/59; PULSE 68; PULSE 79; RESP 16; TEMP 37.1; O2SAT 100; O2SAT 98; BMI 18.8
--- NOTE | 2025-06-10 22:27 | ED.FALL ---
HPI - Fall General Chief Complaint: Fall Stated Complaint: fall Time Seen by Provider: 06/10/25 22:21 Source: patient and EMS Mode of arrival: EMS Limitations: no limitations History of Present Illness ED Provider: Dr. Mar Espinosa HPI Narrative: 70-year-old female with a history of hypertension, hypothyroidism, paroxysmal AFib on Eliquis, AML status post stem cell transplant in remission for 15 years, iron deficiency anemia, post herpetic neuralgia, chronic pain, OCD, depression, who presents after mechanical fall while grocery shopping today. Admits that she was hesitating to step up onto the curb when she lost her balance, falling backward. Hit her head on the curb. Admits that she was able to stand up after the fall and was helped to the ambulance by EMS. Denies LOC. Had been feeling well prior to the fall. Denies feeling dizzy prior to the fall. Admits to a headache with associated contusion but otherwise denies vision changes, numbness/tingling/weakness of the extremities, nausea or vomiting, chest pain or difficulty breathing. He is having some pain in her wrist on the right side. No weakness in the hand. Related Data Home Medications ?Medication ?Instructions ?Recorded ?Confirmed gabapentin 300 mg capsule 600 mg PO TID 10/13/23 05/25/25 oxycodone 5 mg tablet 10 mg PO Q4H PRN Pain 10/13/23 05/25/25 estradiol 0.01% (0.1 mg/gram) 1 appl vaginal MARRUFO 10/28/23 05/25/25 vaginal cream famotidine 20 mg tablet 20 mg PO BID 10/28/23 05/25/25 folic acid 1 mg tablet 1 mg PO DAILY 10/28/23 05/25/25 losartan 25 mg tablet 25 mg PO DAILY 10/28/23 05/25/25 valacyclovir 500 mg tablet 500 mg PO BID 02/20/24 05/25/25 hydroxyzine HCl 25 mg tablet 25 mg PO Q8H PRN itching 07/13/24 05/25/25 diltiazem HCl 240 mg 240 mg PO DAILY 08/10/24 05/25/25 capsule,extended release 24 hr empagliflozin 10 mg tablet 10 mg PO DAILY 08/10/24 05/25/25 (Jardiance) acetaminophen 500 mg tablet 500 mg PO Q6H PRN Pain 09/23/24 05/25/25 multivitamin 1 tab PO DAILY 09/23/24 05/25/25 cyclosporine 0.05 % eye drops in a 1 drp ophthalmic (eye) BID 11/16/24 05/25/25 dropperette (Restasis) duloxetine 60 mg capsule,delayed 60 mg PO BID@0700,1400 11/16/24 05/25/25 release levothyroxine 112 mcg tablet 112 mcg PO DAILY@0600 11/16/24 05/25/25 aspirin 81 mg tablet,delayed 81 mg PO DAILY 04/02/25 05/25/25 release clopidogrel 75 mg tablet 75 mg PO DAILY 04/02/25 05/25/25 lamotrigine 25 mg tablet 50 mg PO BID 04/02/25 05/25/25 furosemide 20 mg tablet 20 - 40 mg PO DAILY PRN Edema 05/25/25 05/25/25 niacinamide 500 mg tablet 500 mg PO BID 05/25/25 05/25/25 Previous Rx's ?Medication ?Instructions ?Recorded lorazepam 0.5 mg tablet 0.5 mg PO DAILY PRN anxiety #30 08/10/24 tabs mupirocin 2 % topical ointment 1 appl topical TID #22 grams 11/19/24 mirtazapine 7.5 mg tablet 7.5 mg PO BEDTIME #90 tabs 03/04/25 doxycycline monohydrate 100 mg 100 mg PO BID #10 caps 05/26/25 capsule Allergies Allergy/AdvReac Type Severity Reaction Status Date / Time vancomycin (VANCOMYCIN) Allergy Mild HIVES Verified 06/10/25 22:23 imipenem (IMIPENEM) Allergy Unknown HIVES Verified 06/10/25 22:23 Penicillins (PENICILLINS) Allergy Unknown UNKNOWN Verified 06/10/25 22:23 lisinopril (LISINOPRIL) AdvReac Unknown COUGH Verified 06/10/25 22:23 Review of Systems Review of Systems: as per HPI, full review of systems performed and negative but for the above mentioned pertinent positives and negatives. [facility] Past Medical History Medical History OCD (obsessive compulsive disorder) Left shoulder pain PAF (paroxysmal atrial fibrillation) Major depressive disorder, recurrent, moderate Dysthymia Post herpetic neuralgia Social History Social History Household Members: None Housing: Apartment Housing Other:: [facility] [place] Do you presently have visiting nurse or other home services: No Alcohol intake: current Alcohol intake frequency: holidays/special occasions only Patient Tobacco Use Status: Never used Tobacco Second Hand Smoke Exposure: No Substance Use Type: Marijuana Advance Directives Date on File: 11/16/24 service: No Physical Exam Exam: Exam: GENERAL: Uncomfortable-Appearing, conversant, mild distress due to pain. SKIN: Normal skin color for ethnicity, warm, dry, intact, no rashes noted. HEENT:? Normocephalic, contusion overlying the L parietal scalp, no stridor, airway patent, no raccoon's eyes, no Trinidad sign, dentition intact, EOMI. NECK: Soft, supple, full ROM, midline structures nontender, no step-offs, no deformities, no lymphadenopathy. CHEST: Heart regular rate and rhythm, no murmurs, symmetric chest rise and fall, no crepitus. PULMONARY: Clear to auscultation bilaterally, no labored breathing, no wheezes/rhales/rhonchi. ABDOMINAL: Soft, nondistended, nontender, positive bowel sounds in all quadrants. : Deferred. MUSCULOSKELETAL: Normal tone, full range of motion, no deformities, no contusions, hypertonicity of the bilateral trapezius musculature, tenderness overlying the distal radius on the R side, full function of the radial, median and ulnar nerves of the R hand. NEURO: Alert and oriented x3, CN II through XII intact, equal strength and sensation bilateral upper and lower extremities, no focal neurologic deficits.? PSYCHIATRIC: Anxious affect, fluid speech, good eye contact and appropriate demeanor. Vital Signs: Vital Signs: Last Vital Signs Temp 97.0 F 06/11/25 02:39 Pulse 81 06/11/25 02:39 Resp 18 06/11/25 02:39 BP 141/72 H 06/11/25 02:39 Pulse Ox 98 06/11/25 02:39 O2 Del Method Room Air 06/11/25 02:39 BMI result Body Mass Index 18.8 Medications Administered Discontinued Medications Generic Name Dose Route Start Last Admin Trade Name Freq PRN Reason Stop Dose Admin Oxycodone HCl 10 mg 06/11/25 00:53 06/11/25 01:00 Oxycodone Hcl Immed Release 5 Mg Tablet PO 06/11/25 00:54 10 mg ONCE ONE Administration Medical Decision Making Medical Decision Making [facility] Narrative: Patient presents today with chief complaint of trauma. Different diagnosis on this patient includes intracranial hemorrhage, skull fracture, neck injury including fracture or spinal cord pathology. Other diagnoses considered would include chest or abdominal trauma as well as long bone fractures. Based on my physical exam, the ordered imaging modalities are indicated. The patient specifically does not show any signs of central cord syndrome as evidenced by equal strength in the upper extremities with normal two-point discrimination. Sensation is not altered. GCS is appropriate. Patient is neurovascularly intact. There are no signs of vascular emergency. No signs of shock. No respiratory distress. Patient was given tylenol for pain control. Imaging negative for acute process. Using shared decision making, plan for discharge home to follow-up with primary care and/or specialist.? Patient understands and agrees with plan for discharge.? Discharged home in stable condition. Differential Diagnosis Differential Diagnoses: The differential diagnosis associated with the presentation includes (as above) Admission/Observation Consideration of admission/observation: Escalation of care including admission/observation considered Lab Data [facility] Lab Attestation statement: I reviewed the patient's lab results. Labs: Lab Results 06/11/25 Range/Units 00:18 Urine Color Yellow Urine Appearance Clear Urine pH 5.5 (5.0-9.0) Ur Specific [place] 1.015 (1.005-1.025) Urine Protein Negative (Neg-Trace) mg/dL Urine Glucose (UA) 500 H (Negative) mg/dL Urine Ketones Negative (Negative) mg/dL Urine Blood Negative (Negative) Urine Nitrite Negative (Negative) Ur Leukocyte Esterase Small (1+) H (Negative) Urine RBC 0-2 (0-2) /HPF Urine WBC 0-5 (0-5) /HPF Ur Squamous Epith Cells 0-2 (0-2) /HPF Urine Bacteria None Seen (None Seen) Hyaline Casts 0-2 (0-2) /LPF Independent Interpretation I performed an independent interpretation of an: Plain X-Ray Interpretation: no acute fracture of the R hand or wrist Radiology Impression Discussion of test interpretation with radiology: I have reviewed the radiologist's reading. External Record Review External record reviewed: Inpatient record Prescription Management I considered prescription management with: Pain Medication Chronic Conditions Patient?s care impacted by: Hypertension and Other (afib) Social Determinants Patient?s care significantly limited by Social Determinants of Health including: Problems related to primary support group and Other Social Determinant of Health Discharge Plan Discharge Clinical Impression: Ground-level fall, Closed head injury, Contusion of scalp, Contusion of right wrist Patient Disposition: Home, Self-Care Instructions: Head Injury (ED), Scalp Contusion in Adults (ED) Additional Instructions: You hit your head on the curb today which caused a traumatic brain injury. This is also known as a concussion. Concussion symptoms can last for a long time. Sometimes up to several weeks. The important thing to remember is to rest your brain. This means no visual or auditory stimulation. Try to sleep in a dark room and rest your eyes. Drink plenty of fluids over the next several days. Concussion symptoms include: Headaches, brain fog, difficulty concentrating, blurry vision, nausea, even vomiting. These symptoms should improve over time. If you do not feel better or if your symptoms are worsening, you can return to the emergency department at any time. Call 911 with any medical emergency. Prescriptions: No Action hydroxyzine HCl 25 mg tablet 25 mg PO Q8H PRN (Reason: itching) multivitamin Tablet 1 tab PO DAILY acetaminophen 500 mg Tablet 500 mg PO Q6H PRN (Reason: Pain) levothyroxine 112 mcg tablet 112 mcg PO DAILY@0600 cyclosporine [Restasis] 0.05 % dropperette 1 drp ophthalmic (eye) BID duloxetine 60 mg capsule,delayed release(DR/EC) 60 mg PO BID@0700,1400 mupirocin 2 % ointment 1 appl topical TID Qty: 22 0RF niacinamide 500 mg Tablet 500 mg PO BID furosemide 20 mg Tablet 20 - 40 mg PO DAILY PRN (Reason: Edema) Rx Instructions: Patient requests not to be given unless transferred to room with bathroom attached. doxycycline monohydrate 100 mg Capsule 100 mg PO BID Qty: 10 0RF losartan 25 mg tablet 25 mg PO DAILY estradiol 0.01 % (0.1 mg/gram) cream 1 appl vaginal MARRUFO folic acid 1 mg tablet 1 mg PO DAILY famotidine 20 mg tablet 20 mg PO BID valacyclovir 500 mg tablet 500 mg PO BID oxycodone 5 mg tablet 10 mg PO Q4H PRN (Reason: Pain) gabapentin 300 mg capsule 600 mg PO TID diltiazem HCl 240 mg capsule,extended release 24hr 240 mg PO DAILY Jardiance 10 mg tablet 10 mg PO DAILY lorazepam 0.5 mg tablet 0.5 mg PO DAILY PRN (Reason: anxiety) Qty: 30 2RF mirtazapine 7.5 mg tablet 7.5 mg PO BEDTIME Qty: 90 0RF lamotrigine 25 mg tablet 50 mg PO BID clopidogrel 75 mg tablet 75 mg PO DAILY aspirin 81 mg tablet,delayed release (DR/EC) 81 mg PO DAILY Interventions: ED Discharge Assessment Last Done: 06/11/25 02:39 Discharge Date/Time: 06/11/25 02:40 Print Language: Maltese
--- OUTSIDE RECORDS SUMMARY | 2025-06-10 22:39 | XMS_ITS | Encounter Summary ---
Author Organization [facility] Address [address] [facility] [address] [place] [address] Phone Care Team Providers Care M1 Armor Crewman Name Role Phone De Enciso MD Unavailable [phone] Eva Monreal MD Primary Care Provider [phone] Aydee Flores [facility] Unavailable Theresa Sweet Unavailable Unavailable Daniel Reed Unavailable [email or web address] Magalis Fong MD Unavailable [phone] Marilu Anderson Unavailable [phone] Micaela Cobb CNP Unavailable Marilu Anderson Unavailable [phone] Valeri MoralesP Unavailable [phone] Marilu Anderson Unavailable Encounter Details Date Type Department Care Team (Late st Contact Info) Description 06/07/2024 Procedure Pass [facility] [address], [place] [id number] Social History Tobacco Use Types Packs/Day Years [...] 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 Not on file Not on file documented as of this encounter Functional Status * Calculated C-SSRS Risk Score (Lifetime/Recent) Answer Date of Assessment Author No Risk Indicated 06/07/2024 4:56 AM EDT Ernesto Alfonso, GREGORIA * [place] Suicide Severity Rating Scale (Screener/Recent Self-Report) Question [...] Care Team (Late st Contact Info) Description 06/14/2025 11:40 AM EDT Appointment [facility] [address] [place] [phone] Marilu Anderson MBBS [address] [place] [phone] 06/14/2025 1:30 PM EDT Office Visit [facility] at [address] [address] Marilu Anderson MBBS [address] [place] [phone] 06/14/2025 2:00 PM EDT Infusion [facility] at [address] [address] Marilu Anderson MBBS [address] [place] [phone] Micaela Smith, GREGORIA [address] [place] [phone] 06/21/2025 9:10 AM EDT Appointment [facility] [address] [place] [phone] Marilu Anderson MBBS [address] [place] [phone] 06/21/2025 10:00 AM EDT Office Visit [facility] at [address] [address] Marilu Anderson MBBS [address] [place] [phone] 06/21/2025 11:40 AM EDT Infusion [facility] at [address] [place] [address] Marilu Anderson MBBS [address] [place] [address] 09/11/2025 11:15 AM EST Office Visit [facility] [address] [facility] [address] [place] [address] Lily Cuevas MD [address] [place] [address] [email or web address] 09/11/2025 1:00 PM EST Office Visit [facility] [address] Floor, [address] [place] [address] Segun Finnegan MD [address] [place] [phone] [email or web address] documented as of this encounter Visit Diagnoses Not on filedocumented in this encounter Additional Health Concerns Infection Onset Date Last Indicated Resolved Time CoV-Risk Comment:Per note documentation 06/06/2024 06/06/2024 1:30 PM EDT documented as of this encounter Care Teams M1 Armor Crewman Relationship Specialty Start Date End Date Eva Monreal MD [address] [place] [address] [address] [place] [address] [email or web address] PCP - General Internal Medicine 04/03/19 De Enciso MD [address] [place] [phone] Historical LMR Provider 01/16/15 Aydee Flores, [facility] [address] [place] [address] [email or web address] Architect Oncology 06/09/21 Theresa Sweet [address] [place] [address] 2/1/23 Daniel Reed [address] [place] [address] [email or web address] Stamp Analyst 06/21/21 Magalis Fong MD [address] [place] [address] Gastroenterology 09/12/23 Marilu Anderson MBBS [address] [place] [phone] Primary Oncologist Medical Oncology 01/09/25 05/01/25 Micaela Cobb CNP [address] [place] [phone] Nurse Practitioner Medical Oncology 04/05/25 Marilu Anderson MBBS [address] [place] [phone] Primary Oncologist Hematology and Oncology 05/02/25 Valeri Morales FNP [address] [place] [phone] Nurse Practitioner Medical Oncology 05/15/25 Marilu Anderson MBBS [address] [place] [phone] Primary Oncologist Hematology and Oncology 05/15/25 documented as of this encounter Additional Source Comments The information contained in this document represents components of the legal health record. It is not the complete legal health record.[facility]
--- OUTSIDE RECORDS SUMMARY | 2025-06-10 22:39 | XMS_ITS | Clinical Summary ---
Author Organization [facility] Address [address] [place] [address] Care Team Providers Care Mails Supervisor Name Role Phone Unavailable Primary Care Provider [...]
--- OUTSIDE RECORDS SUMMARY | 2025-06-10 22:39 | XMS_ITS | Encounter Summary ---
Author Organization [facility] Address [address] [place] [address] Care Team Providers Care Rail Layer Name Role Phone Eva Monreal Primary Care Provider [phone] Reason for Visit * Reason Onset Date Comments Appointment Rescheduling 02/15/2022 Encounter Details Date Type Department Care Team ([facility] Contact Info) Description 02/15/2022 Telephone [facility] Central Scheduling Department [address] [place] [phone] Telephone Intake, Staff Appointment Rescheduling Social History [...] on filedocumented in this encounter Care Teams Rail Layer Relationship Specialty Start Date End Date Eva Monreal [address] [place] [address] PCP - General Internal Medicine 12/12/20 documented as of this encounter
--- OUTSIDE RECORDS SUMMARY | 2025-06-10 22:39 | XMS_ITS | Clinical Summary ---
Author Organization [facility] Address [address] [place] [address] Care Team Providers Care Car Stereo Installer Name Role Phone Eva Monreal Primary Care Provider [phone] Allergies Active Allergy Reactions Criticality Noted Date Comments Ceftazidime Rash Low 07/20/2017 Cephalosporins Hives 08/25/2008 skin test pre-pen, pen G, and ceftriaxone on 06/20/2013, were all negative. However, given the low sensitivity of the latter, this patient should be considered cephalosporin (and carbapenem) allergic unless disproved by an senior ui designer by way of a graded challenge. skin test pre-pen, pen G, and ceftriaxone on 06/20/2013, were all negative. However, given the low sensitivity of the latter, this patient should be considered cephalosporin (and carbapenem) allergic unless disproved by an senior ui designer by way of a graded challenge. 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
--- OUTSIDE RECORDS SUMMARY | 2025-06-10 22:40 | XMS_ITS | Encounter Summary ---
Author Organization [facility] Address [address] [facility] [address] [place] [address] Phone Care Team Providers Care Planned Giving Officer Name Role Phone De Enciso MD Unavailable [phone] Eva Monreal MD Primary Care Provider Aydee Flores [facility] Unavailable Theresa Sweet Unavailable Unavailable Daniel Reed Unavailable [email or web address] Magalis Fong MD Unavailable [phone] Marilu Anderson Unavailable [phone] Micaela Cobb CNP Unavailable Marilu Anderson Unavailable [phone] Valeri MoralesP Unavailable Marilu Anderson Unavailable [phone] Reason for Visit * Reason Comments Medication Refill Encounter Details Date Type Department Care Team (Late st Contact Info) Description 11/20/2023 Refill Oral Medicine, [facility] [address] [facility], 11th [place] [address] Dee Cordero [address] [place] [address] [email or web address] Medication Refill Social History Tobacco Use Types [...] 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 file Not on file documented as of this encounter Plan of Treatment Upcoming Encounters Date Type Department Care Team (Late st Contact Info) Description 06/14/2025 11:40 AM EDT Appointment [facility] [address] [place] [address] Marilu Anderson MBBS [address] [place] [address] 06/14/2025 1:30 PM EDT Office Visit [facility] at [address] [address] Marilu Anderson MBBS [address] [place] [address] 06/14/2025 2:00 PM EDT Infusion [facility] at [address] [address] Marilu Anderson MBBS [address] [place] [address] Micaela Smith RN [address] [place] [address] 06/21/2025 9:10 AM EDT Appointment [facility] [address] [place] [address] Marilu Anderson MBBS [address] [place] [address] 06/21/2025 10:00 AM EDT Office Visit [facility] at [address] [address] Marilu Anderson [address] [address] 06/21/2025 11:40 AM EDT Infusion [facility] at [address] [address] Mrailu Anderson [address] [address] 09/11/2025 11:15 AM EST Office Visit [facility] [address] [facility] 1st [place] [address] Lily Cuevas MD [address] [place] [address] [email or web address] 09/11/2025 1:00 PM EST Office Visit [facility] [address] [place] [address] 3rd Floor, [address] [place] [address] Segun Finnegan MD [address] [place] [address] [email or web address] documented as of this encounter Visit Diagnoses Not on filedocumented in this encounter Additional Health Concerns Infection Onset Date Last Indicated Resolved Time CoV-Risk Comment:Per note documentation 06/06/2024 06/06/2024 1:30 PM EDT documented as of this encounter Care Teams Planned Giving Officer Relationship Specialty Start Date End Date Eva Monreal MD [address] [place] [address] [address] [place] [address] [email or web address] PCP - General Internal Medicine 04/03/19 De Enciso MD [address] [place] [address] Historical LMR Provider 01/16/15 Aydee Flores, [facility] [address] [place] [address] [email or web address] Tax Expert Oncology 06/09/21 Theresa Sweet [address] [place] [address] 10/06/22 Daniel Reed [address] [place] [address] [email or web address] Planogrammer 06/21/21 Magalis Fong MD [address] [place] [address] Gastroenterology 09/12/23 Marilu Anderson MBBS [address] [place] [address] [email or web address] Primary Oncologist Medical Oncology 01/09/25 05/01/25 Micaela Cobb CNP [address] [place] [address] [email or web address] Nurse Practitioner Medical Oncology 04/05/25 Marilu Anderson MBBS [address] [place] [address] [email or web address] Primary Oncologist Hematology and Oncology 05/02/25 Valeri Morales FNP [address] [place] [address] [email or web address] Nurse Practitioner Medical Oncology 05/15/25 Marilu Anderson MBBS [address] [place] [address] [email or web address] Primary Oncologist Hematology and Oncology 05/15/25 documented as of this encounter Additional Source Comments The information contained in this document represents components of the legal health record. It is not the complete legal health record.[facility]
--- OUTSIDE RECORDS SUMMARY | 2025-06-10 22:40 | XMS_ITS | Encounter Summary ---
Author Organization [facility] Address [address] [place] [address] Phone Care Team Providers Care Control Systems Specialist Name Role Phone Eva Monreal MD Primary Care Provider [phone] Encounter Details Date Type Department Care Team (Late st Contact Info) Description 02/06/2025 Documentation Only [facility], [address] [place] [address] Lisa [place], [place] [address] [place] [address] Social History Tobacco Use Types [...] on filedocumented in this encounter Care Teams Control Systems Specialist Relationship Specialty Start Date End Date Eva Monreal MD [address] [place] [address] PCP - General Internal Medicine 02/06/25 documented as of this encounter
--- OUTSIDE RECORDS SUMMARY | 2025-06-10 22:40 | XMS_ITS | Encounter Summary ---
Author Organization [facility] Address [address] [facility] [address] [place] [address] Phone Care Team Providers Care Assembler Cards And Announcements Name Role Phone De Enciso MD Unavailable [phone] Eva Monreal MD Primary Care Provider [phone] Aydee Flores [facility] Unavailable Theresa Sweet Unavailable Unavailable Daniel Reed Unavailable [email or web address] Magalis Fong MD Unavailable [phone] Marilu Anderson Unavailable Micaela Cobb CNP Unavailable Marilu Anderson Unavailable [phone] Valeri MoralesP Unavailable Marilu Anderson Unavailable [phone] Encounter Details Date Type Department Care Team (Late st Contact Info) Description 02/21/2025 Transcribe [facility] [address] [place] [address] 3rd Floor, [address] [place] [address] Segun Finnegan MD [address] [place] [address] Social History Tobacco Use Types Packs/Day Years [...] 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 Not on file documented as of this encounter Plan of Treatment Upcoming Encounters Date Type Department Care Team (Late st Contact Info) Description 06/14/2025 11:40 AM EDT Appointment [facility] [address] [place] [address] Marilu Anderson MBBS [address] [place] [address] 06/14/2025 1:30 PM EDT Office Visit [facility] 30 [place] [address] Marilu Anderson MBBS [address] [place] [address] 06/14/2025 2:00 PM EDT Infusion [facility] at [address] [address] Marilu Anderson MBBS [address] [place] [address] Micaela Smith RN [address] [place] [address] 06/21/2025 9:10 AM EDT Appointment [facility] [address] [place] [address] Marilu Anderson MBBS [address] [place] [address] 06/21/2025 10:00 AM EDT Office Visit [facility] at [address] [address] Marilu Anderson MBBS [address] [place] [address] 06/21/2025 11:40 AM EDT Infusion [facility] at [address] [address] Marilu Anderson MBBS [address] [place] [address] 09/11/2025 11:15 AM EST Office Visit [facility] [address] [place] [address] Lily Cuevas MD [address] [place] [address] [email or web address] 09/11/2025 1:00 PM EST Office Visit [facility] [address] [facility] 3rd Floor, [address] [place] [address] Segun Finnegan MD [address] [place] [address] [email or web address] documented as of this encounter Visit Diagnoses Not on filedocumented in this encounter Care Teams Assembler Cards And Announcements Relationship Specialty Start Date End Date Eva Monreal MD [address] [place] [address] [address] [place] [address] [email or web address] PCP - General Internal Medicine 04/03/19 De Enciso MD [address] [place] [address] Historical LMR Provider 01/16/15 Aydee Flores, [address] [address] [email or web address] Electrical Products Sales Engineer Oncology 06/09/21 Theresa Sweet [address] [place], [place] 10/06/22 Daniel Reed [address] [place], [place] [email or web address] Jewel Corner Brushing Machine Operator 06/21/21 Magalis Fong MD [address] [place] [address] Gastroenterology 09/12/23 Marilu Anderson MBBS [address] [place] [address] [email or web address] Primary Oncologist Medical Oncology 01/09/25 05/01/25 Micaela Cobb CNP [address] [place] [address] [email or web address] Nurse Practitioner Medical Oncology 04/05/25 Marilu Anderson MBBS [address] [place] [address] [email or web address] Primary Oncologist Hematology and Oncology 05/02/25 Valeri Morales FNP [address] [place] [address] [email or web address] Nurse Practitioner Medical Oncology 05/15/25 Marilu Anderson MBBS [address] [place] [address] [email or web address] Primary Oncologist Hematology and Oncology 05/15/25 documented as of this encounter Additional Source Comments The information contained in this document represents components of the legal health record. It is not the complete legal health record.[facility]
--- OUTSIDE RECORDS SUMMARY | 2025-06-10 22:40 | XMS_ITS | Encounter Summary ---
Author Organization [facility] Address [address] [facility] [address] [place] [address] Phone Care Team Providers Care Medical Officer Psychiatry Name Role Phone De Enciso MD Unavailable [phone] Eva Monreal MD Primary Care Provider Aydee Flores [facility] Unavailable Theresa Sweet Unavailable Unavailable Daniel Reed Unavailable Itz [email or web address] Magalis Fong MD Unavailable [phone] Marilu Anderson Unavailable Micaela Cobb CNP Unavailable Marilu Anderson Unavailable Valeri MoralesP Unavailable Marilu Anderson Unavailable Encounter Details Date Type Department Care Team (Late st Contact Info) Description 05/03/2024 Procedure Pass Echo [facility] [place] [place] [address] Social History Tobacco Use Types Packs/Day [...] 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 Not on file documented as of this encounter Plan of Treatment Upcoming Encounters Date Type Department Care Team (Late st Contact Info) Description 06/14/2025 11:40 AM EDT Appointment [facility] [address] [place] [address] Marilu Anderson MBBS [address] [place] [address] 06/14/2025 1:30 PM EDT Office Visit [facility] at [address] [address] Marilu Anderson MBBS [address] [place] [address] 06/14/2025 2:00 PM EDT Infusion [facility] at [address] [address] Marilu Anderson MBBS [address] [place] [address] Micaela Smith, GREGORIA [address] [place] [address] 06/21/2025 9:10 AM EDT Appointment [facility] [address] [place] [address] Marilu Anderson MB 30 [place] [address] 06/21/2025 10:00 AM EDT Office Visit [facility] at [address] [address] Marilu Anderson MB 30 [place] [address] 06/21/2025 11:40 AM EDT Infusion [facility] at [address] [address] Marilu Anderson MB 30 [place] [address] 09/11/2025 11:15 AM EST Office Visit [facility] [address] [address] Lily Cuevas MD 221 [place] [address] [email or web address] 09/11/2025 1:00 PM EST Office Visit [facility] [address] [facility] 3rd Floor, [address] [place] [address] Segun Finnegan MD [address] [place] [address] documented as of this encounter Visit Diagnoses Not on filedocumented in this encounter Additional Health Concerns Infection Onset Date Last Indicated Resolved Time CoV-Risk Comment:Per note documentation 06/06/2024 06/06/2024 10/03/202 4 1:30 PM EDT documented as of this encounter Care Teams Medical Officer Psychiatry Relationship Specialty Start Date End Date Eva Monreal MD [address] [place] [address] [address] [place] [address] [email or web address] PCP - General Internal Medicine 04/03/19 De Enciso MD [address] [place] [address] Historical LMR Provider 01/16/15 Aydee Flores, [facility] [address] [place] [address] [email or web address] German Tutor Oncology 06/09/21 Theresa Sweet [address] [place] [address] 10/06/22 Daniel Reed [address] [place] [address] [email or web address] Vault Keeper 06/21/21 Magalis Fong MD [address] [place] [address] Gastroenterology 09/12/23 Marilu Anderson MBBS [address] [place] [address] Primary Oncologist Medical Oncology 01/09/25 05/01/25 Micaela Cobb CNP [address] [place] [address] Nurse Practitioner Medical Oncology 04/05/25 Mrailu Anderson MBBS [address] [place] [address] Primary Oncologist Hematology and Oncology 05/02/25 Valeri Morales FNP 30 [place] [address] [email or web address] Nurse Practitioner Medical Oncology 05/15/25 Marilu Anderson MBBS [address] [place] [address] [email or web address] Primary Oncologist Hematology and Oncology 05/15/25 documented as of this encounter Additional Source Comments The information contained in this document represents components of the legal health record. It is not the complete legal health record.[facility]
--- OUTSIDE RECORDS SUMMARY | 2025-06-10 22:40 | XMS_ITS | Encounter Summary ---
Author Organization [facility] Address [address] [address] Phone Care Team Providers Care Grades 6 Through 8 Teacher Name Role Phone Erwin Gavin MD Primary Care Provider De Jaime MD Unavailable [phone] Brittany Estrella Unavailable [email or web address] Jeffery MD Unavailable [phone] Cheryl Hernandez BATTERY TESTER AND REPAIRER Unavailable [phone] Eva Monreal MD Primary Care Provider [phone] Aydee Flores BATTERY TESTER AND REPAIRER Unavailable Theresa Sweet Unavailable Unavailable Daniel Reed Unavailable Itz [email or web address] Magalis Fong MD Unavailable + [phone] Marilu Anderson Unavailable [phone] Micaela Cobb CNP Unavailable Marilu Anderson Unavailable [phone] Valeri MorlaesP Unavailable [phone] Marilu Anderson Unavailable [phone] Reason for Referral * Physical Therapy (Routine) - Closed Specialty Diagnoses / Procedures Referred By Contac t Referred To Contact Physical Therapy Diagnoses Encounter for rehabilitation fecal incontinence Procedures physical therapy System, Provider Not In, [facility] [address] [address] [facility] 30 [place] [address] Phone: tel: Referral ID Status Reason Start Date Expiration Date Visits Re quested Visits Authorized [id number] Closed 02/17/2018 02/17/2019 99 99 Encounter Details Date Type Department Care Team (Latest Contact Info) Description 02/17/2018 Transcribe Orders [facility] [address] [place] [address] Gloria Shepherd PA-C [address] [place] [address] [email or web address] Encounter for rehabilitation (Primary Dx) Social History [...] 06/14/2025 11:40 AM EDT Appointment [facility] [address] [place] [address] Marilu Anderson MBBS 30 [place] [address] 06/14/2025 1:30 PM EDT Office Visit [facility] 30 [place] [address] Marilu Anderson MBBS [address] [place] [address] 06/14/2025 2:00 PM EDT Infusion [facility] at [address] [address] Marilu Anderson MBBS [address] [place] [address] Micaela Smith, GREGORIA [address] [place] [address] 06/21/2025 9:10 AM EDT Appointment [facility] [address] [place] [address] Marilu Anderson MBBS [address] [place] [address] 06/21/2025 10:00 AM EDT Office Visit [facility] at [address] [address] [address]il[address] Anderson [address] [address] 06/21/2025 11:40 AM EDT Infusion [facility] at [address] [address] [address]il[address] Anderson [address] [address] 09/11/2025 11:15 AM EST Office Visit [facility] [address] [place] [address] Lily Cuevas MD [address] [place] [address] [email or web address] 09/11/2025 1:00 PM EST Office Visit [facility] [address] [place] [address] 3rd Floor, [address] [place] [address] Segun Finnegan MD 50 [place] [address] [email or web address] documented as of this encounter Procedures Procedure Name Priority Date/Time Associated Diagnosis Comments AMB REFERRAL TO [facility] PHYSICAL THERAPY Routine 03/02/2018 12:17 PM EDT Encounter for rehabilitation documented in this encounter Results * Ambulatory referral to [facility] Physical Therapy (03/02/2018 12:17 PM EDT) us Provider Not In System PhD AMB [facility] REFERRALS Fin al Result documented in this encounter Visit Diagnoses Diagnosis Encounter for rehabilitation- Primary documented in this encounter Additional Health Concerns Infection Onset Date Last Indicated Resolved Time CoV-Risk Comment:Per note documentation 06/06/2024 06/06/2024 1:30 PM EDT documented as of this encounter Care Teams Grades 6 Through 8 Teacher Relationship Specialty Start Date End Date Erwin Gavin MD PCP - General 03/05/14 04/02/19 Eva Monreal MD [address] [place] [address] [address] [place] [address] [email or web address] PCP - General Internal Medicine 04/03/19 De Enciso MD [address] [place] [address] Historical LMR Provider 01/16/15 Brittany Estrella [address] [place] [address] [email or web address] Clinical Coordinator Resource, Ancillary 02/10/15 10 Asher Toledo MD [address] [place] [address] [email or web address] Referring Physician Hematology 12/03/15 11/25/21 Cheryl Hernandez, [address] [address] [email or web address] Clinical Program Consultant Oncology 12/05/15 06/08/21 Aydee Flores, [address] [address] [email or web address] Clinical Program Consultant Oncology 06/09/21 Theresa Sweet [address] [place] [address] 10/06/22 Daniel Reed [address] [place] [address] [email or web address] Cottrell Operator 06/21/21 Magalis Fong MD [address] [place] [address] Gastroenterology 09/12/23 Marilu Anderson MBBS [address] [place] [address] [email or web address] Primary Oncologist Medical Oncology 01/09/25 05/01/25 Micaela Cobb CNP [address] [place] [address] [email or web address] Nurse Practitioner Medical Oncology 04/05/25 Marilu Anderson MBBS [address] [place] [address] [email or web address] Primary Oncologist Hematology and Oncology 05/02/25 Valeri Morales FNP [address] [place] [address] [email or web address] Nurse Practitioner Medical Oncology 05/15/25 Marilu Anderson MBBS [address] [place] [address] [email or web address] Primary Oncologist Hematology and Oncology 05/15/25 documented as of this encounter Additional Source Comments The information contained in this document represents components of the legal health record. It is not the complete legal health record.[facility]
--- OUTSIDE RECORDS SUMMARY | 2025-06-10 22:40 | XMS_ITS | Clinical Summary ---
Author Organization [facility] Address [address] [place] [phone] Phone Care Team Providers Care Marker Machine Attendant Name Role Phone Eva Monreal MD Primary Care Provider Allergies Active Allergy Reactions Criticality Noted Date [...] (and carbapenem) allergic unless disproved by an dumping machine operator by way of a graded challenge. skin test pre-pen, pen G, and ceftriaxone on 06/20/2013, were all negative. However, given the low sensitivity of the latter, this patient should be considered cephalosporin (and carbapenem) allergic unless disproved by an dumping machine operator by way of a graded challenge. skin test pre-pen, pen G, and ceftriaxone on 06/20/2013, were all negative. However, given the low sensitivity of the latter, this patient should be considered cephalosporin (and carbapenem) allergic unless disproved by an dumping machine operator by way of a graded challenge. skin test pre-pen, pen G, and ceftriaxone on 06/20/2013, were all negative. However, given the low sensitivity of the latter, this patient should be considered cephalosporin (and carbapenem) allergic unless disproved by an dumping machine operator by way of a graded challenge. skin test pre-pen, pen G, and ceftriaxone on 06/20/2013, were all negative. However, given the low sensitivity of the latter, this patient should be considered cephalosporin (and carbapenem) allergic unless disproved by an dumping machine operator by way of a graded challenge. skin test pre-pen, pen G, and ceftriaxone on 06/20/2013, were all negative. However, given the low sensitivity of the latter, this patient should be considered cephalosporin (and carbapenem) allergic unless disproved by an dumping machine operator by way of a graded challenge. skin test pre-pen, pen G, and ceftriaxone on 06/20/2013, were all negative. However, given the low sensitivity of the latter, this patient should be considered cephalosporin (and carbapenem) allergic unless disproved by an dumping machine operator by way of a graded challenge. skin test pre-pen, pen G, and ceftriaxone on 06/20/2013, were all negative. However, given the low sensitivity of the latter, this patient should be considered cephalosporin (and carbapenem) allergic unless disproved by an dumping machine operator by way of a graded challenge. [...] in the evening. 8 Active nystatin (MYCOSTATIN) 526233 UNIT/ML suspension SWISH AND SPIT WITH 5 [...] topic Insurance Medicare Medicaid [place] Care Teams Marker Machine Attendant Relationship Specialty Start Date End Date Eva Monreal MD [address] [place] [address] PCP - General Internal Medicine 02/06/25
--- OUTSIDE RECORDS SUMMARY | 2025-06-10 22:40 | XMS_ITS | Encounter Summary ---
Author Organization [facility] Address [address] [place] [address] Phone Care Team Providers Care Toll Service Observer Name Role Phone De Enciso MD Unavailable [phone] Eva Monreal MD Primary Care Provider Aydee Flores [facility] Unavailable Theresa Sweet Unavailable Unavailable Daniel Reed Unavailable [email or web address] Magalis Fong MD Unavailable [phone] Marilu Anderson Unavailable [phone] Micaela Cobb CNP Unavailable Marilu Anderson Unavailable Valeri MoralesP Unavailable [phone] Marilu Anderson Unavailable Encounter Details Date Type Department Care Team (Late st Contact Info) Description 10/31/2024 Procedure Pass Echo Lab [address] [place] [address] Social History Tobacco Use Types Packs/Day [...] 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 [address] [place] [address] Marilu Anderson MBBS [address] [place] [address] 06/14/2025 2:00 PM EDT Infusion [facility] at [address] [address] Marilu Anderson MBBS [address] [place] [address] Micaela Smith RN [address] [place] [address] 06/21/2025 9:10 AM EDT Appointment [facility] [address] [place] [address] Marilu Anderson MBBS [address] [place] [address] 06/21/2025 10:00 AM EDT Office Visit [facility] at [address] [address] Marilu Anderson MBBS [address] [place] [address] 06/21/2025 11:40 AM EDT Infusion [facility] at [address] [address] Marilu Anderson MBBS [address] [place] [address] 09/11/2025 11:15 AM EST Office Visit [facility] [address] [address] Lily Cuevas MD [address] [place] [address] [email or web address] 09/11/2025 1:00 PM EST Office Visit [facility] [address] Floor, [address] [place] [address] Segun Finnegan MD [address] [place] [address] [email or web address] documented as of this encounter Visit Diagnoses Not on filedocumented in this encounter Care Teams Toll Service Observer Relationship Specialty Start Date End Date Eva Monreal MD [address] [place] [address] [address] [place] [address] [email or web address] PCP - General Internal Medicine 04/03/19 De Enciso MD [address] [place] [address] Historical LMR Provider 01/16/15 Aydee Flores, [facility] [address] [place] [address] [email or web address] Spring Former Machine Oncology 06/09/21 Theresa Sweet [address] [place], [place] 10/06/22 Daniel Reed [address] [place] [address] [email or web address] Freedom Of Information Officer 06/21/21 Magalis Fong MD [address] [place] [address] Gastroenterology 09/12/23 Marilu Anderson MBBS [address] [place] [address] [email or web address] Primary Oncologist Medical Oncology 01/09/25 05/01/25 Micaela Cobb CNP [address] [place] [address] Nurse Practitioner Medical Oncology 04/05/25 Marilu Anderson MBBS [address] [place] [address] [email or web address] Primary Oncologist Hematology and Oncology 05/02/25 Valeri Morales FNP [address] [place] [address] [email or web address] Nurse Practitioner Medical Oncology 05/15/25 Marilu Anderson MBBS [address] [place] [address] [email or web address] Primary Oncologist Hematology and Oncology 05/15/25 documented as of this encounter Additional Source Comments The information contained in this document represents components of the legal health record. It is not the complete legal health record.[facility]
--- OUTSIDE RECORDS SUMMARY | 2025-06-10 22:40 | XMS_ITS | Data Portability ---
Author Organization [facility] Address [address] [place] [phone] Care Team Providers Care Grinder And Honer Operator Automatic Name Role Phone SHAYLEE JENSEN Referring Provider AASHISH WRAY Referring Provider SHAYLEE JENSEN Primary Care Provider [phone] Assessment Encounter Date Assessment Date Assessment LastModified [...] these by her healthcare providers at the [facility]. In this context, we decided that she [...] even 4 months. She understands. Physical therapy mauro moody she was in for other reasons g ave her exercises. I showed her [...] duloxetine. She would like to do this. >>>>>>>>>>>>[facility] 2023 I can think of two possible [...] these by her healthcare providers at the [facility]. In this context, we decided that she [...] Follow-up 1 month. Florentin Hooper MD PhD [facility] Not available 09/13/2024 15:54:54 10/16/2024 [...] suggested increase to duloxetine 120 mg daily w ith continued attention to her blood [...] even 4 months. She understands. Physical therapy mauro moody she was in for other reasons g ave her exercises. I showed her [...] duloxetine. She would like to do this. >>>>>>>>>>>>[facility] 2023 I can think of two possible [...] these by her healthcare providers at the [facility]. In this context, we decided that she [...] Follow-up 1 month. Florentin Hooper MD PhD [facility] Not available 10/16/2024 18:02:20 12/05/2024 [...] rash. We decided on a cautious titration. >>>>>>>>>>>>[place] [facility] 2024 I suggested increase to duloxetine 120 mg daily w ith continued attention to her blood [...] even 4 months. She understands. Physical therapy w [facility] she was in for other reasons g ave her exercises. I showed her [...] duloxetine. She would like to do this. >>>>>>>>>>>>[facility] 2023 I can think of two possible [...] her healthcare providers at the [facility]. In this context, we decided that she [...] Follow-up 2 month. Florentin Hooper MD PhD [facility] Not available 12/05/2024 12:52:57 Plan of Treatment Reminders Order Date Submit Date Provider Last Modified By Organization Details Last Modified Time Details Appointments FOLLOW UP EXT 2024 11:00A M Florentin Hooper MD PhD Not available Not available Not available Lab None record ed. Referral None record ed. Procedures None record ed. Surgeries None record ed. Imaging None record ed. Medication Orders lamotr igine 25 mg tablet 2024 025 [id number], [address] [place], [address], 12/05/2024 16:33:31 duloxe jose alfredo 60 mg capsul e,rikki yed releas e 2024 025 [id number] [address] [place], [address], 10/16/2024 17:22:59 duloxe jose alfredo 30 mg capsul e,rikki yed releas e 2024 025 [id number], [address] [place], [address], 09/13/2024 15:56:50 Patient TargetsNo targets recorded. Patient Instructions Encounter Date Encounter Id Patient Instructions Last Modified By Organization Details Last Modified Time 05/24/2024 [id number] Discussion acros s issues of diagnoses and management and same day associated chart review and management greater than 50% greater than 60 minutes mrossen Not available 05/24/2024 14:38:56 09/13/2024 [id number] Discussion acros s issues of diagnoses and management and same day associated chart review and management greater than 50% greater than 40 minutes mrossen Not available 09/13/2024 15:55:04 10/16/2024 [id number] Discussion acros s issues of diagnoses and management and same day associated chart review and management greater than 50% greater than 40 minutes mrossen Not available 10/16/2024 17:10:33 12/05/2024 [id number] Chronic conditio n with exacerbation; prescription medication management mrossen Not available 12/05/2024 12:53:10 Reason for Referral None Reported. Procedures Surgical History Date Name Laterality Status Provider Name and Address Organization Details Recorded Time botulinum injection completed Floretnin Hooper MD [address] [place] [address] [place], [phone], [facility] 08/22/2024 17:41:31 Imaging Results None recorded. Procedure [...] Not Available Not Available No t Available clopidogrel 75 mg tablet TAKE 1 TABLET BY MOUTH EVERY DAY active Not Available Not Available No t Available valacyclovi r 500 mg tablet TAKE 1 TABLET BY MOUTH TWICE A DAY active Not Available Not Available No t Available sulfamethox azole 800 mg-trimetho prim 160 mg tablet TAKE 1 TABLET BY MOUTH TWICE A DAY active Not Available Not Available No t Available aspirin 81 mg tablet,rikki yed release TAKE 1 TABLET BY MOUTH EVERY DAY active Not Available Not Available No t Available triamcinolo ne acetonide 0.1 % topical cream APPLY TOPICALLY 2 TIMES A DAY. FOR RASH ON LOWER LEGS TWICE DAILY FOR UP TO 2 WEEKS OF EACH MONTH. active Not Available Not Available No t [...] doxycycline monohydrate 100 mg capsule TAKE 1 CAPSULE BY MOUTH TWICE DAILY active Not Available Not Available No [...] oxycodone 5 mg tablet TAKE 2 TABLETS BY MOUTH EVERY 4 HOURS NEEDED (MAX 6 TABLETS PER DAY, 20 DAY SUPPLY) active Not Available Not Available No t [...] 0.05 % eye drops in a dropperette ADMINISTE R 1 DROP INTO BOTH EYES TWO TIMES A DAY. active Not Available Not [...] tablet TAKE 1 TABLET BY MOUTH EVERY EVENING AT BEDTIME active Not Available Not Available [...] Updated DateTime 05/24/2024 170.18 cm 18.8 kg/m2 25735.08 g 12 /min Dee Christina [facility] Neurology [facility] 05/24/2024 13:15:33 Social History Question Answer Notes LastModified by [employer] Details LastModified Time Tobacco Smoking Status Never Smoker [facility] 05/24/2024 13:16:06 What Is Your Level Of Caffeine Consumption? Moderate Information not available 05/24/2024 What Is The Highest Grade Or Level Of School You Have Completed Or The Highest Degree You Have Received? [id number] Information not available 05/24/2024 Which Of Your Hands Is Dominant? Right Information not available 05/24/2024 Sex: Unknown Functional Status Question Answer Note LastModified by [employer] Details LastModified Time What is your level of alcohol consumption? Occasional Information not available 05/24/2024 Mental Status None recorded. Family History Nothing Reported. Medical History Condition Response Claustrophobia N Hospitalizations N Head Trauma/Injury N High Blood Pressure or Hypertension Y Thyroid Problems N Lung Disease N Depression Y COPD or emphysema N Brain Tumors N Encephalitis N PTSD N Vitamin B12 deficiency N Heart Attack (NE) N Spine Problems N Obstructive Sleep Apnea N Alcoholism N Diabetes N Autoimmune disease N Bleeding Disorder N Arthritis N Developmental Problems N Tuberculosis N Cerebral Palsy N Neck Problems N [...] Diagnosis SNOMED-CT Code Diagnosis ICD10 Code Diagnosis IMO Codes Diagnosis Note [id number] Florentin Hooper MD [facility] [address] [place] [address] [place] [address] 05/24/2024 13:05:49 05/24/2024 15:47:32 Post-herpetic neuritis [id number] B02.29 [id number] Florentin Hooper MD [facility] [address] [place] [address] [place] [address] 08/22/2024 15:52:16 08/22/2024 17:52:14 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 [id number] Florentin Hooper MD [facility] [address] [place] [address] [place] [address] 09/13/2024 14:42:26 09/13/2024 16:42:55 Post-herpetic neuritis [id number] B02.29 [id number] Florentin Hooper MD [facility] [address] [place] [address] [place] [address] 10/16/2024 17:05:45 10/17/2024 07:51:24 Post-herpetic neuritis [id number] B02.29 [id number] Florentin Hooper MD [facility] [address] [place] [address] [place] [address] 12/05/2024 12:09:26 12/05/2024 15:47:44 Post-herpetic neuritis 494381335 B02.29 Health Concerns Section Related Observation LastModified by Organization Detai ls LastModified Time None Recorded Concern Status LastModified by Organization Details LastModified Time None Recorded Advance Directives Directive None Recorded Payers Insurance Date Sequence Insurance Name Policy Number Policy Slaughter Covered Member ID Slaughter Member ID Guarantor Name 06/10/2025 2 [place] [facility] Lin [id number] John Lin 06/10/2025 1 [place] B[place] [employer] John Lin [id number] John Lin Notes Date Note Type Note Provider Name and Address Organization Details Recorded Time 05/24/2024 text/html John Lin presents for initial neurology consultation for assessment and management of postherpetic neuralgia, status post ~2021 onset of herpes affecting left upper back and posterolateral shoulder, with subsequent postherpetic neuralgia symptoms of persistent intense itching. 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 >>>>>>>>>>>>Nakul r 2023 presenting [...] intervention for her persistent intense itching. One freight traffic consultant performed MRI cervical spine and follow-up [...] from that trial of capsaicin. A third freight traffic consultant offered antidepressant medications and surgery. She [...] the reduction of duloxetine. Florentin Hooper MD [address] [place] [address] [place], [phone], [facility] Neurology [facility] 08/22/2024 16:29:13 08/22/2024 text/html Follow up for botox injectinos for postherpetic neuralgia, status post ~2021 onset of herpes affecting left upper back and posterolateral shoulder, with subsequent postherpetic neuralgia symptoms of persistent intense itching. 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 >>>>>>>>>>>>Nakul r 2023 presenting symptomotology:In ~2021, ~2 [...] intervention for her persistent intense itching. One freight traffic consultant performed MRI cervical spine and follow-up [...] from that trial of capsaicin. A third freight traffic consultant offered antidepressant medications and surgery. She [...] the reduction of duloxetine. Florentin Hooper MD [address] [place] [address] [place], [phone], [facility] Neurology [facility] 08/22/2024 17:41:45 09/13/2024 text/html Follow up for after botox injectinos for postherpetic neuralgia, status post ~2021 onset of herpes affecting left upper back and posterolateral shoulder, with subsequent postherpetic neuralgia symptoms of persistent intense itching. 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 One freight traffic consultant performed MRI cervical spine and follow-up [...] from that trial of capsaicin. A third freight traffic consultant offered antidepressant medications and surgery. She [...] neuralgic discomfort with the reduction of duloxetine. Floerntin Hooper MD [address] [place] [address] [place], [phone], [facility] Neurology [facility] 09/13/2024 15:57:10 10/16/2024 text/html Follow up for after botox injectinos for postherpetic neuralgia, status post ~2021 onset of herpes affecting left upper back and posterolateral shoulder, with subsequent postherpetic neuralgia symptoms of persistent intense itching. 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 [...] intervention for her persistent intense itching. One freight traffic consultant performed MRI cervical spine and follow-up [...] from that trial of capsaicin. A third freight traffic consultant offered antidepressant medications and surgery. She [...] the reduction of duloxetine. Florentin Hooper MD [address] [place] [address], [phone], [facility] Neurology [facility] 10/16/2024 18:03:24 12/05/2024 text/html Follow up for after botox injectinos for postherpetic neuralgia, status post ~2021 onset of herpes affecting left upper back and posterolateral shoulder, with subsequent postherpetic neuralgia symptoms of persistent intense itching. 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 She has had no side effects. She feels middle of the day itching and tiny knives discomfort in her postherpetic right upper quadrant neuropathy is probably a little better. Her blood pressure has been. (Measured more than once during hospital stay for infection superimposed on skin cancer.) she cannot say whether it has incrementally helped her mood, as it has previously, a little, with reaching duloxetine 90 mg. This is because her mood has been affected by her recent infection and hospital stay.Pain is still worst at waking in the morning when she still needs her oxycodone, and again later in the evening when again she takes oxycodone. She worries about becoming addicted to oxycodone and worries that her [facility] nurse practitioner might stop giving her the oxycodone. We discussed that cancer and cancer related discomfort is one of the most common indications for opiates. Therefore the [facility] nurse practitioner knows usage of opiates quite well. Even though postherpetic neuralgia is not cancer, it is well-known that opiates are sometimes indicated for this condition. I do not believe there is any danger that the nurse practitioner would stop the medication without the patient's consent in this context. >>>>>>>>>>>>October 16, 2024Since September 13, 2024 Neurology follow-up [...] around September 27, 2024, she went to [place] to be with friends and had fun. [...] for switching toward the Lexapro, is gone. >>>>>>>>>>>>Gertrudenazario r 2023 presenting symptomotology:In ~2021, ~2 years [...] intervention for her persistent intense itching. One freight traffic consultant performed MRI cervical spine and follow-up [...] from that trial of capsaicin. A third freight traffic consultant offered antidepressant medications and surgery. She [...] the reduction of duloxetine. Florentin Hooper MD [address] [place] [address] [place], [phone], [facility] Neurology [facility] 12/05/2024 12:54:24 OBGyn Episode No OBEpisode recorded.
--- OUTSIDE RECORDS SUMMARY | 2025-06-10 22:40 | XMS_ITS | Encounter Summary ---
Author Organization [facility] Address [address] [place] [address] Care Team Providers Care Snack Bar Attendant Name Role Phone Eva Monreal Primary Care Provider [phone] Encounter Details Date Type Department Care Team (Late st Contact Info) Description 04/12/2022 Telephone [facility] Central Scheduling Department [address] [place] [address] Telephone Intake, Staff Social History Tobacco Use [...] on filedocumented in this encounter Care Teams Snack Bar Attendant Relationship Specialty Start Date End Date Eva Monreal [address] [place] [address] PCP - General Internal Medicine 12/12/20 documented as of this encounter
--- OUTSIDE RECORDS SUMMARY | 2025-06-10 22:40 | XMS_ITS | Encounter Summary ---
Author Organization [facility] Address [address] [facility] [address] [place] [address] Phone Care Team Providers Care Field Director Name Role Phone De Enciso MD Unavailable [phone] Eva Monreal MD Primary Care Provider Aydee Flores [facility] Unavailable Theresa Sweet Unavailable Unavailable Daniel Reed Unavailable Itz @[email or web address] Magalis Fong MD Unavailable [phone] Marilu Anderson Unavailable Micaela Cobb CNP Unavailable Marilu Anderson Unavailable Valeri MoralesP Unavailable Marilu Anderson Unavailable [phone] Encounter Details Date Type Department Care Team (Late st Contact Info) Description 02/20/2025 Telephone [facility] [address] [address] Natalie Nichols, [place] 15 [place] [address] [email or web address] Social History Tobacco Use Types [...] 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 Not on file Not on file documented as of this encounter Plan of Treatment Upcoming Encounters Date Type Department Care Team (Late st Contact Info) Description 06/14/2025 11:40 AM EDT Appointment [facility] [address] [place] [address] Marilu Anderson MBBS [address] [place] [address] 06/14/2025 1:30 PM EDT Office Visit [facility] [address] [place] [address] Marilu Anderson MBBS [address] [place] [address] 06/14/2025 2:00 PM EDT Infusion [facility] at [address] [address] Marilu Anderson MBBS [address] [place] [address] Micaela Smith, GREGORIA [address] [place] [address] 06/21/2025 9:10 AM EDT Appointment [facility] [address] [place] [address] Marilu Anderson MBBS [address] [place] [address] 06/21/2025 10:00 AM EDT Office Visit [facility] at [address] [address] Marilu Anderson MBBS [address] [place] [address] 06/21/2025 11:40 AM EDT Infusion [facility] at [address] [address] Marilu Anderson MBBS [address] [place] [address] 09/11/2025 11:15 AM EST Office Visit [facility] [address] [place] [address] Lily Cuevas MD [address] [place] [address] [email or web address] 09/11/2025 1:00 PM EST Office Visit [facility] [address] [place] [address] 3rd Floor, [address] [place] [address] Segun Finnegan MD [address] [place] [address] [email or web address] documented as of this encounter Visit Diagnoses Not on filedocumented in this encounter Care Teams Field Director Relationship Specialty Start Date End Date Eva Monreal MD [address] [place] [address] [address] [place] [address] [email or web address] PCP - General Internal Medicine 04/03/19 De Enciso MD [address] [place] [address] Historical LMR Provider 01/16/15 Aydee Flores, [facility] [address] [place] [address] [email or web address] Advertising Sales Agent Oncology 06/09/21 Theresa Sweet [address] [place] [address] 10/06/22 Daniel Reed [address] [place] [address] [email or web address] Canteen Operator 06/21/21 Magalis Fong MD [address] [place] [address] Gastroenterology 09/12/23 Marilu Anderson MBBS [address] [place] [address] [email or web address] Primary Oncologist Medical Oncology 01/09/25 05/01/25 Micaela Cobb AIRLINE OPERATIONS AGENT [address] [place] [address] [email or web address] Nurse Practitioner Medical Oncology 04/05/25 Marilu Anderson MBBS [address] [place] [address] [email or web address] Primary Oncologist Hematology and Oncology 05/02/25 Valeri Morales FNP [address] [place] [address] [email or web address] Nurse Practitioner Medical Oncology 05/15/25 Marilu Anderson MBBS [address] [place] [address] [email or web address] Primary Oncologist Hematology and Oncology 05/15/25 documented as of this encounter Additional Source Comments The information contained in this document represents components of the legal health record. It is not the complete legal health record.[facility]
--- OUTSIDE RECORDS SUMMARY | 2025-06-10 22:40 | XMS_ITS | Encounter Summary ---
Author Organization [facility] Address [address] [facility] [address] [place] [address] Phone Care Team Providers Care Dye Machine Operator Name Role Phone Erwin Gavin MD Primary Care Provider De Jaime MD Unavailable [phone] Brittany Estrella Unavailable Brittany_[email or web address] [email or web address]. Asher Jeffery MD Unavailable Cheryl Hernandez MANAGER [employer]LE [employer] Unavailable Eva Monreal MD Primary Care Provider Aydee Flores MANAGER [employer] Unavailable Theresa Sweet Unavailable Unavailable Daniel Reed Unavailable Itz @[email or web address] Magalis Fong MD Unavailable + [phone] Marilu Anderson Unavailable Micaela Cobb CNP Unavailable Marilu Anderson Unavailable [phone] Valeri MoralesP Unavailable [phone] Marilu Anderson Unavailable [phone] Encounter Details Date Type Department Care Team (Late st Contact Info) Description 10/16/2016 EpicOnHand Encounter Division of Hematologic Oncology, [facility] [place] [address] [facility], 8th [place] [address] Ro Estrada NP [address] [address] [email or web address] Social History Tobacco Use Types Packs/Day [...] 06/14/2025 11:40 AM EDT Appointment [facility] [address] [place] [address] Marilu Anderson MBBS [address] [place] [address] 06/14/2025 1:30 PM EDT Office Visit [facility] at [address] [address] Marilu Anderson MBBS [address] [place] [address] 06/14/2025 2:00 PM EDT Infusion [facility] at [address] [address] Marilu Anderson MBBS [address] [place] [address] Micaela Smith, GREGORIA 30 [place] [address] 06/21/2025 9:10 AM EDT Appointment [facility] 30 [place] [address] Marilu Anderson MBBS 30 [place] [address] 06/21/2025 10:00 AM EDT Office Visit [facility] at [address] [address] Marilu Anderson MBBS [address] [place] [address] 06/21/2025 11:40 AM EDT Infusion [facility] at [address] [address] Marilu Anderson MBBS 30 [place] [address] 09/11/2025 11:15 AM EST Office Visit [facility] [address] [address] Lily Cuevas MD [address] [place] [address] [email or web address] 09/11/2025 1:00 PM EST Office Visit [facility] [address] [facility] 3rd Floor, [address] [place] [address] Segun Finnegan MD [address] [place] [address] documented as of this encounter Visit Diagnoses Not on filedocumented in this encounter Additional Health Concerns Infection Onset Date Last Indicated Resolved Time CoV-Risk Comment:Per note documentation 06/06/2024 06/06/2024 1:30 PM EDT documented as of this encounter Care Teams Dye Machine Operator Relationship Specialty Start Date End Date Erwin Gavin MD PCP - General 03/05/14 04/02/19 Eva Monreal MD [address] [place] [address] [email or web address] PCP - General Internal Medicine 04/03/19 De Enciso MD [address] [place] [address] Historical LMR Provider 01/16/15 Brittany Estrella [address] [place] [address] [email or web address] Clinical Coordinator Resource, Ancillary 02/10/15 06/08/21 Asher Toledo MD [address] [place] [address] [email or web address] Referring Physician Hematology 12/03/15 11/25/21 Cheryl Hernandez, [address] [address] [email or web address] Primer Press Operator Oncology 12/05/15 06/08/21 Aydee Flores, [address] [address] [email or web address] Primer Press Operator Oncology 06/09/21 Theresa Sweet [address] [place] [address] 10/06/22 Daniel Reed [address] [place] [address] [email or web address] Storage Wharfage Clerk 06/21/21 Magalis Fong MD [address] [place] [address] Gastroenterology 09/12/23 Marilu Anderson MBBS [address] [place] [address] [email or web address] Primary Oncologist Medical Oncology 01/09/25 05/01/25 Micaela Cobb CNP [address] [place] [address] [email or web address] Nurse Practitioner Medical Oncology 04/05/25 Marilu Anderson MBBS [address] [place] [address] [email or web address] Primary Oncologist Hematology and Oncology 05/02/25 Valeri Morales FNP [address] [place] [address] [email or web address] Nurse Practitioner Medical Oncology 05/15/25 Marilu Anderson MBBS [address] [place] [address] [email or web address] Primary Oncologist Hematology and Oncology 05/15/25 documented as of this encounter Additional Source Comments The information contained in this document represents components of the legal health record. It is not the complete legal health record.[facility]
--- OUTSIDE RECORDS SUMMARY | 2025-06-10 22:40 | XMS_ITS ---
Author Organization [facility] Address [address] [place] [address] Phone Care Team Providers Care Resident Care Aide Name Role Phone De Enciso MD Unavailable [phone] Eva Monreal MD Primary Care Provider [phone] Aydee Flores [facility] Unavailable Theresa Sweet Unavailable Unavailable Daniel Reed Unavailable Itz @[email or web address] Magalis Fong MD Unavailable [phone] Micaela Cobb CNP Unavailable Marilu Anderson Unavailable [phone] Valeri Morales MINE CAR DISPATCHER Unavailable [phone] Marilu Anderson Unavailable Active Problems Problem [...] a history of anemia and follows with [facility] for injections. Patient has previously discussed [...] Yes Rationale for seeking non-pharmacological alternative to buttermaker continuous churn OAC (select all that apply): History of [...] used to structure this shared decision-making interaction. 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 Other Current Plans [facility] PHOTOPHERESIS* Plan Start Date:02/07/2015 Plan Provider:Cosme Rae MD Linked Problems Pubdy-czvjeg-uhcq disease Treatment Medications No medications scheduled. DARBEPOETIN [...]
--- OUTSIDE RECORDS SUMMARY | 2025-06-10 22:40 | XMS_ITS | Encounter Summary ---
Author Organization [facility] Address [address] [facility] [address] [place] [address] Phone Care Team Providers Care Labor Relations Worker Name Role Phone Erwin Gavin MD Primary Care Provider De Jaime MD Unavailable [phone] Brittany Estrella Unavailable Brittany_Tiesha [email or web address]. Asher Jeffery MD Unavailable [phone] Cheryl Hernandez STORE GIFT WRAP ASSOCIATE Unavailable Eva Monreal MD Primary Care Provider Aydee lFores STORE GIFT WRAP ASSOCIATE Unavailable Theresa Sweet Unavailable Unavailable Daniel Reed Unavailable Itz @[email or web address].[facility] Magalis Fong MD Unavailable + [phone] Marilu Anderson Unavailable Micaela Cobb CNP Unavailable Marilu Anderson Unavailable Valeri MoralesP Unavailable [phone] Marilu Anderson Unavailable [phone] Encounter Details Date Type Department Care Team (Late st Contact Info) Description 09/07/2017 EpicOnHand Encounter Division of Hematologic Oncology, [facility] [place] [address] [facility], 8th [place] [address] Ro Estrada NP [address] [address] [email or web address] Social History Tobacco Use Types Packs/Day [...] 06/14/2025 11:40 AM EDT Appointment [facility] [address] [place] [address] Marilu Anderson MBBS [address] [place] [address] 06/14/2025 1:30 PM EDT Office Visit [facility] at [address] [address] Marilu Andesron MBBS [address] [place] [address] 06/14/2025 2:00 PM EDT Infusion [facility] at [address] [address] Marilu Anderson MBBS [address] [place] [address] Micaela Smith, GREGORIA 30 [place] [address] 06/21/2025 9:10 AM EDT Appointment [facility] 30 [place] [address] Marilu Anderson MBBS [address] [place] [address] 06/21/2025 10:00 AM EDT Office Visit [facility] at [address] [address] Marilu Anderson MB 30 [place] [address] 06/21/2025 11:40 AM EDT Infusion [facility] at [address] [address] Marilu Anderson MB 30 [place] [address] 09/11/2025 11:15 AM EST Office Visit [facility] [address] [address] Lily Cuevas MD [address] [place] [address] [email or web address] 09/11/2025 1:00 PM EST Office Visit [facility] [address] [facility] 3rd Floor, [address] [place] [address] Segun Finnegan MD [address] [place] [address] documented as of this encounter Visit Diagnoses Not on filedocumented in this encounter Additional Health Concerns Infection Onset Date Last Indicated Resolved Time CoV-Risk Comment:Per note documentation 06/06/2024 06/06/2024 1:30 PM EDT documented as of this encounter Care Teams Labor Relations Worker Relationship Specialty Start Date End Date Erwin Gavin MD PCP - General 03/05/14 04/02/19 Eva Monreal MD [address] [place] [address] [email or web address] PCP - General Internal Medicine 04/03/19 De Enciso MD [address] [place] [address] Historical LMR Provider 01/16/15 Brittany Estrella [address] [place] [address] [email or web address] Clinical Coordinator Resource, Ancillary 02/10/15 06/08/21 Asher Toledo MD [address] [place] [address] [email or web address] Referring Physician Hematology 12/03/15 11/25/21 Cheryl Hernandez, [address] [address] Terry@[email or web address] Tire Layer Oncology 12/05/15 06/08/21 Aydee Flores, [address] [address] [email or web address] Tire Layer Oncology 06/09/21 Theresa Sweet 35 [place] [address] 10/06/22 Daniel Reed [address] [place] [address] [email or web address] Career Development Facilitator 06/21/21 Magalis Fong MD [address] [place] [address] Gastroenterology 09/12/23 Marilu Anderson MBBS [address] [place] [address] [email or web address] Primary Oncologist Medical Oncology 01/09/25 05/01/25 Micaela Cobb CNP [address] [place] [address] [email or web address] Nurse Practitioner Medical Oncology 04/05/25 Marilu Anderson MBBS [address] [place] [address] [email or web address] Primary Oncologist Hematology and Oncology 05/02/25 Valeri Morales FNP [address] [place] [address] [email or web address] Nurse Practitioner Medical Oncology 05/15/25 Marilu Anderson MBBS [address] [place] [address] [email or web address] Primary Oncologist Hematology and Oncology 05/15/25 documented as of this encounter Additional Source Comments The information contained in this document represents components of the legal health record. It is not the complete legal health record.[facility]
--- OUTSIDE RECORDS SUMMARY | 2025-06-10 22:41 | XMS_ITS | Encounter Summary ---
Author Organization [facility] Address [address] [facility] [address] [place] [address] Phone Care Team Providers Care Infantry Weapons Crewmember Name Role Phone Erwin Gavin MD Primary Care Provider De Jaime MD Unavailable [phone] Brittany Estrella Unavailable Brittany_[email or web address] [email or web address]. Asher Jeffery MD Unavailable Cheryl Hernandez FISH BONING MACHINE FEEDER Unavailable Eva Monreal MD Primary Care Provider Aydee Flores FISH BONING MACHINE FEEDER Unavailable Theresa Sweet Unavailable Unavailable Daniel Reed Unavailable Itz @[email or web address] Magalis Fong MD Unavailable + [phone] Marilu Anderson Unavailable [phone] Micaela Cobb CNP Unavailable Marilu Anderson Unavailable Valeri MoralesP Unavailable [phone] Marilu Anderson Unavailable [phone] Encounter Details Date Type Department Care Team (Late st Contact Info) Description 06/15/2017 EpicOnHand Encounter Division of Hematologic Oncology, [facility] [place] [address] [facility], 8th [place] [address] Ro Estrada NP [address] [address] [email or web address] Social History Tobacco Use Types Packs/Day Years [...] 06/14/2025 11:40 AM EDT Appointment [facility] [address] [place] [address] Marilu Anderson MBBS [address] [place] [address] 06/14/2025 1:30 PM EDT Office Visit [facility] at [address] [address] Marilu Anderson MBBS [address] [place] [address] 06/14/2025 2:00 PM EDT Infusion [facility] at [address] [address] Marilu Anderson MBBS [address] [place] [address] Micaela Smith, GREGORIA 30 [place] [address] 06/21/2025 9:10 AM EDT Appointment [facility] 30 [place] [address] Marilu Anderson MBBS 30 [place] [address] 06/21/2025 10:00 AM EDT Office Visit [facility] at [address] [address] Marilu Anderson MB 30 [place] [address] 06/21/2025 11:40 AM EDT Infusion [facility] at [address] [address] Marilu Anderson MB 30 [place] [address] 09/11/2025 11:15 AM EST Office Visit [facility] [address] [address] Lily Cuevas MD [address] [place] [address] [email or web address] U 09/11/2025 1:00 PM EST [facility] [address] [facility] 3rd Floor, [address] [place] [address] Segun Finnegan MD [address] [place] [address] documented as of this encounter Visit Diagnoses Not on filedocumented in this encounter Additional Health Concerns Infection Onset Date Last Indicated Resolved Time CoV-Risk Comment:Per note documentation 06/06/2024 06/06/2024 1:30 PM EDT documented as of this encounter Care Teams Infantry Weapons Crewmember Relationship Specialty Start Date End Date Erwin Gavin MD PCP - General 03/05/14 04/02/19 Eva Monreal MD [address] [place] [address] [email or web address] PCP - General Internal Medicine 04/03/19 De Enciso MD 450 [place] [address] Historical LMR Provider 01/16/15 Brittany Estrella 450 [place] [address] [email or web address] Clinical Coordinator Resource, Ancillary 02/10/15 06/08/21 Asher Toledo MD 450 [place] [address] [email or web address] Referring Physician Hematology 12/03/15 11/25/21 Cheryl Hernandez, [address] [address] [email or web address] Fruit Dumper Oncology 12/05/15 06/08/21 Aydee Flores, [address] [address] [email or web address] Fruit Dumper Oncology 06/09/21 Theresa Sweet 35 [place] [address] 10/06/22 Daniel Reed [address] [place] [address] Itz@[facility] Book Cutter 06/21/21 Magalis Fong MD [address] [place] [address] Gastroenterology 09/12/23 Marilu Anderson MBBS [address] [place] [address] [email or web address] Primary Oncologist Medical Oncology 01/09/25 05/01/25 Micaela Cobb CNP [address] [place] [address] [email or web address] Nurse Practitioner Medical Oncology 04/05/25 Marilu Anderson MBBS [address] [place] [address] [email or web address] Primary Oncologist Hematology and Oncology 05/02/25 Valeri Morales FNP [address] [place] [address] [email or web address] Nurse Practitioner Medical Oncology 05/15/25 Marilu Anderson MBBS [address] [place] [address] [email or web address] Primary Oncologist Hematology and Oncology 05/15/25 documented as of this encounter Additional Source Comments The information contained in this document represents components of the legal health record. It is not the complete legal health record.[facility]
--- OUTSIDE RECORDS SUMMARY | 2025-06-10 22:41 | XMS_ITS | Encounter Summary ---
Author Organization Located Within [facility] Address [address] [facility] [address] [place] [address] Phone Care Team Providers Care Central Supply Worker Name Role Phone De Enciso MD Unavailable [phone] Eva Monreal MD Primary Care Provider Aydee Flores [facility] Unavailable Theresa Sweet Unavailable Unavailable Daniel Reed Unavailable Itz [email or web address] Magalis Fong MD Unavailable [phone] Micaela Cobb CNP Unavailable Marilu Anderson Unavailable Valeri Morales RETAIL MARKETING EXECUTIVE Unavailable [phone] Marilu Anderson Unavailable Reason for Visit * Reason Onset Date Comments Labs 05/23/2025 Delta change in PLT count Encounter Details Date Type Department Care Team (Late st Contact Info) Description 05/23/2025 Telephone [facility] at [facility] [address] [place], [place] [phone] Lauren Starkey, RN [address] [place], [place] [phone] Labs (Delta change in PLT count) Social History Tobacco Use Types Packs/Day Years [...] 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 On 05/09 PLT were 314, today they are 153. Thanks documented in this encounter Plan of Treatment Upcoming Encounters Date Type Department Care Team (Late st Contact Info) Description 06/14/2025 11:40 AM EDT Appointment [facility] [address] [place] [address] Marilu Anderson MBBS [address] [place] [address] 06/14/2025 1:30 PM EDT Office Visit [facility] at [address] [address] Maril[address] Anderson [address] [address] 06/14/2025 2:00 PM EDT Infusion [facility] at [address] [address] Marilu Anderson [address] [address] Micaela Smith, GREGORIA [address] [place] [address] 06/21/2025 9:10 AM EDT Appointment [facility] [address] [place] [address] Marilu Anderson [address] [address] 06/21/2025 10:00 AM EDT Office Visit [facility] at [address] [address] Marilu Anderson [address] [address] 06/21/2025 11:40 AM EDT Infusion [facility] at [address] [address] Marilu Anderson MBBS [address] [place] [address] [place] [address] 09/11/2025 11:15 AM EST Office Visit [facility] [address] [facility] 1st [place] [address] Lily Cuevas MD [address] [place] [address] [email or web address] 09/11/2025 1:00 PM EST Office Visit [facility] [address] [facility] 3rd Floor, [address] [place] [address] Segun Finnegan MD [address] [place] [address] [email or web address] documented as of this encounter Visit Diagnoses Not on filedocumented in this encounter Care Teams Central Supply Worker Relationship Specialty Start Date End Date Eva Monreal MD [address] [place] [address] [address] [place] [address] [email or web address] PCP - General Internal Medicine 04/03/19 De Enciso MD [address] [place] [address] Historical LMR Provider 01/16/15 Aydee Flores, [facility] [address] [place] [address] [email or web address] Obstetrics Gynecology Md Oncology 06/09/21 Theresa Sweet [address] [place], [place] 10/06/22 Daniel Reed [address] [place], [place] [email or web address] Injection Moulding Machine Operator 06/21/21 Magalis Fong MD [address] [place] [address] Gastroenterology 09/12/23 Micaela Cobb CNP [address] [place] [address] [email or web address] Nurse Practitioner Medical Oncology 04/05/25 Marilu Anderson MBBS [address] [place] [address] [email or web address] Primary Oncologist Hematology and Oncology 05/02/25 Valeri Morales FNP [address] [place] [address] [email or web address] Nurse Practitioner Medical Oncology 05/15/25 Marilu Anderson MBBS [address] [place] [address] [email or web address] Primary Oncologist Hematology and Oncology 05/15/25 documented as of this encounter Additional Source Comments The information contained in this document represents components of the legal health record. It is not the complete legal health record.Loc[facility]
--- OUTSIDE RECORDS SUMMARY | 2025-06-10 22:41 | XMS_ITS | Encounter Summary ---
Author Organization [facility] Address [address] [facility] [address] [place] [address] Phone Care Team Providers Care Video Game Technician Name Role Phone Erwin Gavin MD Primary Care Provider De Jaime MD Unavailable [phone] Brittany Estrella Unavailable Brittany_[email or web address] [email or web address] Asher Jeffery MD Unavailable [phone] Cheryl Hernandez ASSOCIATE DIRECTOR FINANCE Unavailable Eva Monreal MD Primary Care Provider Aydee Flores ASSOCIATE DIRECTOR FINANCE Unavailable Theresa Sweet Unavailable Unavailable Daniel Reed Unavailable Itz [email or web address] Magalis Fong MD Unavailable + [phone] Marilu Anderson Unavailable [phone] Micaela Cobb CNP Unavailable Marilu Anderson Unavailable [phone] Valeri MoralesP Unavailable [phone] Marilu Anderson Unavailable [phone] Encounter Details Date Type Department Care Team (Late st Contact Info) Description 01/31/2019 EpicOnHand Encounter [facility] Suite[facility] [place] [address] [facility], 6th [place] [address] Ro Estrada NP [address] [address] [email or web address] .[email or web address] Social History Tobacco Use Types [...] 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 Not on file Not on file documented as of this encounter Plan of Treatment Upcoming Encounters Date Type Department Care Team (Late st Contact Info) Description 06/14/2025 11:40 AM EDT Appointment [facility] [address] [place] [address] Marilu Anderson MBBS [address] [place] [address] 06/14/2025 1:30 PM EDT Office Visit [facility] at [address] [address] Marilu Anderson MBBS [address] [place] [address] 06/14/2025 2:00 PM EDT Infusion [facility] at [address] [address] Marilu Anderson MBBS [address] [place] [address] Micaela Smith, GREGORIA 30 [place] [address] 06/21/2025 9:10 AM EDT Appointment [facility] [address] [place] [address] Marilu Anderson MBBS [address] [place] [address] 06/21/2025 10:00 AM EDT Office Visit [facility] at [address] [address] Marilu Anderson [address] [address] 06/21/2025 11:40 AM EDT Infusion [facility] at [address] [address] Marilu Anderson [address] [address] 09/11/2025 11:15 AM EST Office Visit [facility] 221 [facility] 1st [place] [address] Lily Cuevas MD [address] [place] [address] [email or web address] 09/11/2025 1:00 PM EST Office Visit [facility] 22 [facility] 3rd Floor, [address] [place] [address] Segun Finnegan MD [address] [place] [address] documented as of this encounter Visit Diagnoses Not on filedocumented in this encounter Additional Health Concerns Infection Onset Date Last Indicated Resolved Time CoV-Risk Comment:Per note documentation 06/06/2024 06/06/2024 1:30 PM EDT documented as of this encounter Care Teams Video Game Technician Relationship Specialty Start Date End Date Erwin Gavin MD PCP - General 03/05/14 04/02/19 Eva Monreal MD [address] [place] [address] [email or web address] PCP - General Internal Medicine 04/03/19 De Enciso MD 450 [place] [address] Historical LMR Provider 01/16/15 Brittany Estrella [address] [place] [address] [email or web address] Clinical Coordinator Resource, Ancillary 02/10/15 06/08/21 Asher Toledo MD 450 [place] [address] [email or web address] Referring Physician Hematology 12/03/15 11/25/21 Cheryl Hernandez, [address] [address] [email or web address] Topology Teacher Oncology 12/05/15 06/08/21 Aydee Flores, [address] [address] [email or web address] Topology Teacher Oncology 06/09/21 Theresa Sweet 35 [place] [address] 10/06/22 Daniel Reed [address] [place] [address] [email or web address] Liner Checker 06/21/21 Magalis Fong MD [address] [place] [address] Gastroenterology 09/12/23 Marilu Anderson MBBS [address] [place] [address] Primary Oncologist Medical Oncology 01/09/25 05/01/25 Micaela Cobb CNP [address] [place] [address] Nurse Practitioner Medical Oncology 04/05/25 Marilu Anderson MBBS [address] [place] [address] Primary Oncologist Hematology and Oncology 05/02/25 Valeri Morales FNP [address] [place] [address] Nurse Practitioner Medical Oncology 05/15/25 Marilu Anderson MBBS [address] [place] [address] Primary Oncologist Hematology and Oncology 05/15/25 documented as of this encounter Additional Source Comments The information contained in this document represents components of the legal health record. It is not the complete legal health record.[facility]
--- OUTSIDE RECORDS SUMMARY | 2025-06-10 22:41 | XMS_ITS | Encounter Summary ---
Author Organization [facility] Address [address] [facility] [address] [place] [address] Phone Care Team Providers Care Patient Safety Manager Name Role Phone Erwin Gavin MD Primary Care Provider De Jaime MD Unavailable [phone] Brittany Estrella Unavailable Brittany_[email or web address] [email or web address] sAher Jeffery MD Unavailable [phone] Cheryl Hernandez DIRECT CARE SPECIALIST Unavailable Eva Monreal MD Primary Care Provider Aydee Flores DIRECT CARE SPECIALIST Unavailable Theresa Sweet Unavailable Unavailable Daniel Reed Unavailable Itz @[email or web address] Magalis Fong MD Unavailable + [phone] Marilu Anderson Unavailable Micaela Cobb CNP Unavailable Marilu Anderson Unavailable Valeri MoralesP Unavailable [phone] Marilu Anderson Unavailable [phone] Encounter Details Date Type Department Care Team (Late st Contact Info) Description 11/03/2016 EpicOnHand Encounter Division of Hematologic Oncology, [facility] [address] [facility], 8th [place] [address] Ro Estrada NP [address] [address] [email or web address] Social History Tobacco Use [...] 06/14/2025 11:40 AM EDT Appointment [facility] [address] [place] [address] Marilu Anderson MBBS [address] [place] [address] 06/14/2025 1:30 PM EDT Office Visit [facility] at [address] [address] Marilu Anderson MBBS [address] [place] [address] 06/14/2025 2:00 PM EDT Infusion [facility] at [address] [address] Marilu Anderson MBBS [address] [place] [address] Micaela Smith, GREGORIA 30 [place] [address] 06/21/2025 9:10 AM EDT Appointment [facility] 30 [place] [address] Marilu Anderson MBBS 30 [place] [address] 06/21/2025 10:00 AM EDT Office Visit [facility] at [address] [address] Marilu Anderson MBBS [address] [place] [address] 06/21/2025 11:40 AM EDT Infusion [facility] at [address] [address] Marilu Anderson MBBS [address] [place] [address] 09/11/2025 11:15 AM EST Office Visit [facility] [address] [address] Lily Cuevas MD [address] [place] [address] [email or web address] U 09/11/2025 1:00 PM EST Office [facility] 22 [facility] 3rd Floor, [address] [place] [address] Segun Finnegan MD [address] [place] [address] documented as of this encounter Visit Diagnoses Not on filedocumented in this encounter Additional Health Concerns Infection Onset Date Last Indicated Resolved Time CoV-Risk Comment:Per note documentation 06/06/2024 06/06/2024 1:30 PM EDT documented as of this encounter Care Teams Patient Safety Manager Relationship Specialty Start Date End Date Erwin Gavin MD PCP - General 03/05/14 04/02/19 Eva Monreal MD [address] [place] [address] [email or web address] PCP - General Internal Medicine 04/03/19 De Enciso MD [address] [place] [address] Historical LMR Provider 01/16/15 Brittany Estrella [address] [place] [address] [email or web address] Clinical Coordinator Resource, Ancillary 02/10/15 06/08/21 Asher Toledo MD 450 [place] [address] [email or web address] Referring Physician Hematology 12/03/15 11/25/21 Cheryl Hernandez, [address] [address] [email or web address] Physical Science Aide Oncology 12/05/15 06/08/21 Aydee Flores, [address] [address] [email or web address] Physical Science Aide Oncology 06/09/21 Theresa Sweet [address] [place] [address] 10/06/22 Daniel Reed [address] [place] [address] [email or web address] Certified Marine Mechanic 06/21/21 Magalis Fong MD [address] [place] [address] Gastroenterology 09/12/23 Marilu Anderson MBBS [address] [place] [address] [email or web address] Primary Oncologist Medical Oncology 01/09/25 05/01/25 Micaela Cobb CNP [address] [place] [address] [email or web address] Nurse Practitioner Medical Oncology 04/05/25 Marilu Anderson MBBS [address] [place] [address] [email or web address] Primary Oncologist Hematology and Oncology 05/02/25 Valeri Morales FNP [address] [place] [address] [email or web address] Nurse Practitioner Medical Oncology 05/15/25 Marilu Anderson MBBS [address] [place] [address] [email or web address] Primary Oncologist Hematology and Oncology 05/15/25 documented as of this encounter Additional Source Comments The information contained in this document represents components of the legal health record. It is not the complete legal health record.[facility]
--- OUTSIDE RECORDS SUMMARY | 2025-06-10 22:41 | XMS_ITS | Clinical Summary ---
Author Organization [facility] Address [address] [place] [address] Phone Care Team Providers Care Organizational Development Consultant Name Role Phone Chun Enciso MD Unavailable [phone] Eva Monreal MD Primary Care Provider [phone] Aydee Flores [facility] Unavailable Theresa Sweet Unavailable Unavailable Daniel Reed Unavailable [email or web address] Magalis Fong MD Unavailable [phone] Micaela Cobb CNP Unavailable Marilu Anderson Unavailable [phone] Valeri Morales FUNCTIONAL MENTAL DISABILITY TEACHER Unavailable [phone] Marilu Anderson Unavailable Allergies Active Allergy Reactions Criticality Noted [...] (and carbapenem) allergic unless disproved by an inventory manager by way of a graded challenge. Cilastatin [...] rash. Vancomycin Hcl Rash Medium 02/01/2013 Medications FA/MV,CA,IRON,MIN/ LYCOPENE/LUT (MULTIVITAL ORAL) MVI (MULTIVITAMINS) ; Dose: 1 TAB; Form: Not available; Route: PO; Frequency: QD; Directions: Not available; Details: Duration: 30 day(s); Dispense: 1 Month(s) Supply; Taking; Status: Active; Source: RISHABH TREJO M.D., M.P.H.; Date: 02/14/2009 02/15/20 09 Active niacinamide 500 mg tablet Take 1 tablet (500 mg total) by mouth 2 (two) times a day with meals. 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 Please administer physical therapy three times weekly. 1 Units 4 12/16/19 19 Active ESTRACE 0.01 % (0.1 mg/gram) vaginal cream Place vaginally 2 (two) times a week. 06/02/20 20 Active Lactobacillus acidophilus (PROBIOTIC) 10 billion cell Cap Take 1 capsule by mouth daily. Active LORazepam (ATIVAN) 1 MG tablet Take 1 tablet (1 mg total) by mouth every 8 (eight) hours as needed for anxiety. 60 tablet 3 02/11/20 23 Active acetaminophen (TYLENOL) 500 MG tablet Take [...] for 20 min after. 300 mL 3 05/03/20 24 Active dilTIAZem (CARDIZEM CD) 240 MG 24 hr capsule Take 1 capsule (240 mg total) by mouth daily. 90 capsule 3 05/17/20 24 Active furosemide (LASIX) 20 MG tablet Take 20 mg by mouth daily. Active tretinoin (RETIN-A) 0.025 % creamIndications:A ctinic keratoses Apply topically nightly at bedtime. Pea-sized amount to face. Start every 3rd night and increase as tolerated to nightly dosing. Do not take when . 45 g 11 06/08/20 24 Active levothyroxine (SYNTHROID,LEVOTHR OID) 25 MCG tabletIndications: Acquired hypothyroidism Take 1 tablet (25 mcg total) by mouth every morning. 30 tablet 07/14/20 24 Active Additional Information Patient taking differently: 112 mcgOral Every morning, Reported on 05/23/2025 clobetasol (TEMOVATE) 0.05 % Gel Apply 1 Application topically as needed. 07/14/20 24 025 Active ketoconazole (NIZORAL) 2 % shampoo as directed Externally Active famotidine (PEPCID) 20 MG tablet TAKE 1 TABLET BY MOUTH TWICE A DAY 180 tablet 3 09/04/20 24 Active DULoxetine (CYMBALTA) 60 MG capsule 2 (two) times a day. 10/16/19 25 Active mirtazapine (REMERON) 7.5 MG tablet Take 7.5 mg by mouth. 09/27/19 24 Active JARDIANCE 10 mg tabletIndications: Acute on chronic diastolic heart failure TAKE 1 TABLET BY MOUTH EVERY DAY 90 tablet 3 11/09/19 25 Active losartan (COZAAR) 25 MG tablet Take 1 tablet (25 mg total) by mouth daily. 90 tablet 3 12/22/19 25 Active fluorouraciL (EFUDEX) 5 % creamIndications:A ctinic keratosis APPLY TO THE FOREHEAD, LEFT CHEEK AND LOWER LEGS TWICE DAILY FOR 2 WEEKS 40 g 1 02/05/20 25 Active folic acid (FOLVITE) 1 MG tablet TAKE 1 TABLET BY MOUTH EVERY DAY 90 tablet 3 02/05/20 25 Active ciclopirox (PENLAC) 8 % solutionIndication s:Onychomycosis Apply topically nightly at bedtime. Apply over nail and surrounding skin. Apply daily over previous coat. After seven (7) days, may remove with alcohol and continue cycle. 6.6 mL 11 02/14/20 25 Active calcipotriene (DOVONEX) 0.005 % creamIndications:A ctinic keratosis Mix with efudex cream in one to one ratio and apply twice daily for 7 days to rough raised spots. Protect areas of application from sun. 60 g 5 02/14/20 25 Active triamcinolone acetonide 0.1 % cream Apply topically 2 (two) times a day. For rash on lower legs twice daily for up to two weeks of each month. 80 g 1 04/01/20 25 Active lamoTRIgine (LAMICTAL) 25 MG IMMEDIATE release tablet Take 25 mg by mouth 2 (two) times a day. 03/27/20 25 Active valACYclovir (VALTREX) 500 MG tablet TAKE 1 TABLET BY MOUTH TWICE A DAY 180 tablet 3 04/15/20 25 Active gabapentin (NEURONTIN) 300 MG capsuleIndications :Peripheral neuropathy due to chemotherapy,Histo ry of peripheral stem cell transplant,Post herpetic neuralgia TAKE 2 CAPSULES BY MOUTH 3 TIMES A DAY 180 capsule 6 05/02/20 25 Active budesonide (ENTOCORT EC) 3 mg 24 hr capsuleIndications :Jwqqi-qtzpzj-azeo disease, unspecified,Stem cells transplant status TAKE 3 CAPSULES (9 MG TOTAL) BY MOUTH DAILY. 270 capsule 1 05/07/20 25 Active oxyCODONE 5 MG immediate release tabletIndications: Acute myeloid leukemia in remission,Chronic pain syndrome Take 2 tablets (10 mg total) by mouth every 4 (four) hours as needed (MAX 6 tablets per day, 20 day supply). Partial fill ok. 120 tablet 05/14/20 25 Active clopidogrel (PLAVIX) 75 mg tablet Take 75 mg by mouth daily. 03/27/20 25 Active sulfamethoxazole-t rimethoprim (BACTRIM DS) 800-160 mg per tablet Take 1 tablet (160 mg of trimethoprim total) by mouth 2 (two) times a day. 7 tablet 05/23/20 25 Active ELIQUIS 2.5 mgIndications:Paro xysmal atrial fibrillation TAKE 1 TABLET BY MOUTH TWICE A DAY 60 tablet 5 02/06/20 25 025 Discontin ued(No longer taking) oxyCODONE 5 MG immediate release tabletIndications: Acute myeloid leukemia in remission,Chronic pain syndrome Take 2 tablets (10 mg total) by mouth every 4 (four) hours as needed (MAX 6 tablets per day, 20 day supply). Partial fill ok. 120 tablet 04/13/20 25 025 Discontin ued(Reord er) Active Problems Problem Noted Date Diagnosed Date [...] a history of anemia and follows with [facility] for injections. Patient has previously discussed Watchman [...] Yes Rationale for seeking non-pharmacological alternative to group home OAC (select all that apply): History of [...] used to structure this shared decision-making interaction. 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 who has her on medication that has [...] History of peripheral stem cell transplant 06/23 Zdors-bqnhua-zapm disease 03/24/2015 Overview (05/14/2016): IMO update Hypertensive [...] Encounters Date Type Department Care Team Description 05/30/2025 3:00 PM EDT - 05/30/2025 11:59 PM EDT Hospital Encounter Echo Lab [address] [place] [address] Jose Vela, DO Discharge Disposition: Home or Self Care 05/29/2025 Refill Procedure Suite, [facility] [address] [place] [address], 6th [place] [address] Ro Estrada, TERESE Medication Refill 05/28/2025 [facility] [address] 3rd Floor, [address] [place] [address] Marilou Mendezchad 05/27/2025 10:30 AM EDT Office Visit [facility] [address] [place] [address] Lily Cuevas MD Actinic keratoses (Primary Dx); Pruritus; GVHD (graft versus host disease); Nail dystrophy 05/27/2025 Telephone [facility] at [address] [address] Marilu Anderson MBBS scheduled apt 05/23/2025 2:40 PM EDT Infusion [address] [address] Marilu Anderson MBBS Zononi, Karen, GREGORIA Anemia associated with chronic renal failure (Primary Dx) 05/23/2025 1:30 PM EDT Office Visit [address] [address] Valeri Morales, FUNCTIONAL MENTAL DISABILITY TEACHER 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); Cellulitis of left lower extremity 05/23/2025 12:10 PM EDT - 05/23/2025 11:59 PM EDT Hospital Encounter [facility] [address] [place] [address] Marilu Anderson MBBS Discharge Disposition: Home or Self Care 05/23/2025 Telephone [facility] at [address] [address] Lauren Starkey, RN Labs (Delta change in PLT count) 05/23/2025 Telephone [facility] [address] [place] [address] Sera Friedman Appointment 05/14/2025 Orders Only Procedure Suite, [facility] [address] [place] [address], [address] [place] [address] Ro Estrada, SDET Acute myeloid leukemia in remission; Chronic pain syndrome 05/09/2025 3:40 PM EDT Infusion [facility] at [address] [address] Marilu Anderson MBBS Anemia associated with chronic renal failure (Primary Dx) 05/09/2025 2:30 PM EDT Office Visit [facility] at [address] [address] Marilu Anderson MBBS Anemia, chronic disease (Primary Dx); Anemia associated with chronic renal failure; Acute myeloid leukemia in remission 05/09/2025 1:40 PM EDT - 05/09/2025 11:59 PM EDT Hospital Encounter [facility] [address] [place] [address] Marilu Anderson MBBS Discharge Disposition: Home or Self Care 05/05/2025 Refill Procedure Suite, [address], [address] [place] [address] Ro Estrada, SDET Medication Refill 05/03/2025 Orders Only Procedure Suite, [address], [address] [place] [address] Ro Estrada, SDET 05/02/2025 Orders Only [facility] at [address] [address] Felicia Trejo MA 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) 05/02/2025 Refill Procedure Suite, [address], [address] [place] [address] Ro Estrada, SDET Medication Refill 04/22/2025 3:00 PM EDT Infusion [facility] [place] at [address] [address] Marilu Anderson MBBS O'Donnell, Kaitlin, RN Anemia associated with chronic renal failure (Primary Dx) 04/22/2025 1:50 PM EDT - 04/22/2025 11:59 PM EDT Hospital Encounter [facility] [address] [place] [address] Marilu Anderson MBBS Discharge Disposition: Home or Self Care 04/18/2025 Orders Only [facility] at [address] [address] Lit Allen CMA 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) 04/13/2025 Refill Procedure Suite, [facility] [address] [facility], [address]th [place] [address] Ro Estrada NP Medication Refill 04/13/2025 Orders Only Procedure Suite, [facility] [address] [facility], 6th [place] [address] Ro Estrada NP Acute myeloid leukemia in remission; Chronic pain syndrome 04/08/2025 2:06 PM EDT - 04/08/2025 11:59 PM EDT Hospital Encounter [facility] [address] [place] [address] Marilu Anderosn MBBS Discharge Disposition: Home or Self Care 04/08/2025 2:00 PM EDT Infusion [facility] at [address] [address] Marilu Anderson MBBS Brumbaugh, Benjamin, GREGORIA Anemia associated with chronic renal failure (Primary Dx) 04/08/2025 1:30 PM EDT Office Visit [facility] at [address] [address] Micaela Cobb CNP 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); Anemia associated with chronic renal failure 04/08/2025 11:50 AM EDT - 04/08/2025 2:05 PM EDT Hospital Encounter [facility] [address] [place] [address] Marilu Anderson MBBS Discharge Disposition: Home or Self Care 04/08/2025 [facility] at [address] [address] Kanchan Torres, GREGORIA Labs 04/04/2025 Orders Only [facility] at [address] [address] Lit Allen CMA Anemia associated with chronic renal failure (Primary Dx) 04/03/2025 Telephone [facility] [address] [place] [address] Marilu Anderson MBBS pt call re labs / [email or web address] 04/01/2025 3:15 PM EDT Office Visit [facility] [address] 1st [place] [address] Iglesia Michaud DO Stasis dermatitis (Primary Dx) 03/25/2025 Telephone [facility] [address] [place] [address] Kush Berkowitz 03/22/2025 Telephone 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 Not on file Not [...] 11:40 AM EDT Appointment [facility] [address] [place] [address] Marilu Anderson MBBS [address] [place] [address] 06/14/2025 1:30 PM EDT Office Visit [facility] at [address] [address] Marilu Anderson MBBS [address] [place] [address] 06/14/2025 2:00 PM EDT Infusion [facility] at [address] [address] Marilu Anderson MBBS [address] [place] [address] Micaela Smith RN [address] [place] [address] 06/21/2025 9:10 AM EDT Appointment [facility] [address] [place] [address] Marilu Anderson MBBS [address] [place] [address] 06/21/2025 10:00 AM EDT Office Visit [facility] at [address] [address] Marilu Anderson MBBS [address] [place] [address] 06/21/2025 11:40 AM EDT Infusion [facility] at [address] [address] Marilu Anderson [address] [address] 09/11/2025 11:15 AM EST Office Visit [facility] [address] [place] [address] Lily Cuevas MD [address] [place] [address] [email or web address] 09/11/2025 1:00 PM EST Office Visit [facility] [address] [place] [address] 3rd Floor, [address] [place] [address] Segun Finnegan MD [address] [place] [address] [email or web address] Health Maintenance Due Date Last Done Comments DEPRESSION SCREENING 1966 MAMMOGRAM 1994 COLOGUARD 1999 COLONOSCOPY 1999 FIT TEST 1999 FOBT 1999 VIRTUAL COLONOSCOPY 1999 RSV VACCINE (1 - Risk 50-74 years 1-dose series) 2004 OSTEOPOROSIS SCREENING INITIAL (ONE-TIME) 2019 03/31/2010 COLORECTAL CANCER SCREENING 02/05/2020 SIGMOIDOSCOPY 02/05/2020 02/04/2015, 10/2014, 02/08/2014, Additional history exists ZOSTER VACCINES (2 of 2) 06/07/2022 04/12/2022 COVID-19 VACCINE ( season) 2025 02/06/2025, 05/14/2024, 12/26/2023, Additional history exists BLOOD PRESSURE 11/20/2025 05/23/2025 TSH LEVEL 01/02/2026 01/02/2025, 110 12/2023, 06/19/2024, Additional history exists CREATININE LEVEL 05/09/2026 05/09/2025, , 04/08/2025, Additional history exists POTASSIUM LEVEL 05/09/2026 05/09/2025, 04/05, 04/08/2025, Additional history exists LIPID PANEL 01/02/2030 01/02/2025, 12/04, 08/09/2018, Additional history exists Adult Td,Tdap Booster 05/25/2035 05/25/2025 , 04/23/2015, 10/05/2010, Additional history exists HEPATITIS C SCREENING Completed 10/16/2009 , 10/16/2009, 10/21/2008, Additional history exists MENINGOCOCCAL VACCINES (ACWY) Aged Out 11/03/2009 No longer eligible based on patient's age to complete this topic HIB VACCINES Aged Out 10/05/2010, 11/03/2009 No lo nger eligible based on patient's age to complete this topic PNEUMOCOCCAL VACCINES (50+ years) Completed 02/06/2025, 07/19/2005 INFLUENZA VACCINE Completed 05/21/2025, , 06/10/2023, Additional history exists SMOKING STATUS SCREENING (Once After 26 Yrs) Completed 05/27/2025 HEPATITIS A VACCINES Aged Out No long er eligible based on patient's age to complete this topic MENINGOCOCCAL VACCINES (B) Aged Out N o longer eligible based on patient's age to complete this topic Medical Devices Not on file Procedures Procedure Name Priority Date/Time Associated Diagnosis Comments TTE COMPREHENSIVE Routine 05/30/2025 4:1 5 PM EDT Cardiac murmur, unspecified RETICULOCYTES Routine 05/23/2025 12:17 PM EDT Anemia, [...] Recently Relevant to Health Maintenance Results * TTE COMPREHENSIVE (05/30/2025 4:15 PM EDT) Height 172 cm Weight 54 kg Systolic BP 112 mmHg Diastolic BP 62 mmHg Interventricular Septum Thickness 9 6 - 11 mm Left Ventricle Internal Diameter End Diastole 44 37 - 52 mm Left Ventricle Internal Diameter End Systole 32 <35 mm Left Ventricular Outflow Tract Diameter 20.0 mm Left Ventricular Posterior Wall Thickness 10 6 - 11 mm Left Ventricle Ea Lateral Wave Speed 9.4 cm/s Left Ventricle Ea Septal Wave Speed 8.5 cm/s Ejection Fraction 64 50 - 75 Percent Left Atrium Dimension Anterior-Posterior 39 15 - 40 mm Aortic Valve Regurgitation Pressure Half Time 324 ms Aortic Valve Peak Velocity 3.0 m/s Aortic Valve Peak Gradient 35 mmHg Aortic Valve Mean Gradient 20 mmHg Aortic Valve Time Velocity Integral 634.0 mm Aortic Arch Diameter 25 mm Aortic Sinus Diameter 32 <40 mm Ascending Aorta Diameter 26 <36 mm Inferior Vena Cava Diameter 16 <21 mm Mitral Valve Aliasing Velocity 27.5 cm/s Mitral Valve PISA Radius 0.30 cm Mitral Valve Deceleration Time 151 ms Left Ventricle A Wave Speed 62.1 cm/s Left Ventricle E Wave Speed 103.0 cm/s Mitral Valve Mean Gradient 2 mmHg Mitral Valve Peak Gradient 6 mmHg Mitral Valve Area Continuity Equation 3.00 cm2 Pulmonary Valve Peak Velocity 1.0 m/s Pulmonary Valve Peak Gradient 4 mmHg Right Ventricle Basal Diameter 31 25 - 41 mm Tricuspid Valve Peak Velocity 2.7 m/s Raw LV EF% 47 % MV E/E' Tissue Velocity Lateral 10.96 Relative Wall Thickness 0.45 0.22 - 0.42 MV E/A ratio 1.7 MV E/e' septal 12.12 Left Ventricle E/e' Average 11.5 Aortic Valve Prosthetic Peak Gradient 35 mmHg Aortic Valve Prosthetic Mean Gradient 20 mmHg Aorta Sinus Index by Height 1.86 cm/m Aorta Sinus CSA index by Height 4.67 cm2/m Asc Aorta CSA Index by Height 3.09 cm2/m Mitral Valve Prosthetic Peak Gradient 6 mmHg Mitral Valve Prosthetic Mean Gradient 2 mmHg Right Ventricle to Right Atrium Pressure Gradient 29 mmHg Right Ventricle Peak Systolic Pressure (Assuming RAP 10) 39 mmHg MGB CV ECHO TV RVSP (ASSUMING RAP OF 5) 34 mmHg RVSP (Exclusive of RAP) 29 mmHg Pulmonic Valve Prosthetic Peak Gradient 4 mmHg Echo E/Ea 12.12 Body Surface Area 1.64 m2 Left Atrial Volume Index 39 16 - 34 mL/m2 Right Ventricle Peak Systolic Pressure 32 mmHg Left Ventricle indexed to BSA 84.0 g/m2 Left Atrial Volume 64 mL Left Atrial Volume Index by Height 37 mL/m LVOT VTI REST 27.0 cm Aortic Valve Sinus Index by BSA 20 mm/m2 Ascending Aorta Index 16 mm/m2 Right Atrium Pressure Estimated 3 mmHg Ascending Aorta Index 16 mm Aortic Sinus Index 20 mm Ascending Aorta Diameter 16 mm Aortic Valve Sinus Index 1 20 19 - 27 mm AO ASC DIAM BSA INDEX 15.85 Anatomical Region Laterality Modality Heart Ultrasound Narrative 05/31/2025 10:19 AM EDT Images from the original result were not included. Borderline LVH with normal LV systolic function EF 60 to 65%. Normal RV size and function. Normal diastolic function for age. Mild to moderate central mitral regurgitation Aortic valve is moderately thickened and calcified. There is moderate aortic stenosis peak velocity 3 m/s mean gradient 20 mmHg. There is moderate aortic insufficiency. PA pressure estimation is within normal limits. Compared to prior study from October 2024, the aortic stenosis has progressed from mild to moderate. Otherwise unchanged. Left Ventricle The left ventricle is normal in size. There is borderline concentric hypertrophy. The interventricular septal thickness is 9 mm. The LV posterior wall thickness is 10 mm. There is normal left ventricular systolic function. The LV ejection fraction is 64% (calculated via biplane measurement). LV diastolic function appears within normal limits for age. The E wave velocity is 103.0 cm/s. The A wave velocity is 62.1 cm/s. The E/A ratio is 1.7. The e' septal wave velocity is 8.5 cm/s. The e' lateral wave velocity is 9.4 cm/s. The average E/e' ratio is 11.5. Right Ventricle The right ventricle is normal in size. There is normal right ventricular systolic function. Left Atrium The left atrium is mildly dilated. The left atrial volume index by BSA is 39 mL/m2. Right Atrium The right atrium is normal in size. The IVC is normal in size. Mitral Valve There is borderline mitral valve prolapse. There is moderate thickening of both mitral leaflets. There is mitral annular calcification. There is no mitral stenosis. The mitral valve mean gradient is 2 mmHg. There is mild to moderate mitral regurgitation. Tricuspid Valve The tricuspid valve appears normal. There is no tricuspid stenosis. There is mild tricuspid regurgitation. The RV systolic pressure was calculated at 32 mmHg (using TR peak velocity of 2.7 m/s and assuming an RA pressure of 3 mmHg). Aortic Valve The aortic valve is tricuspid. Multiple leaflets are moderately thickened. There is moderate aortic stenosis. The peak and mean aortic valve gradients are 35 mmHg and 20 mmHg respectively. The left ventricular outflow tract velocity time integral is 27.0 cm. There is moderate aortic regurgitation. The regurgitation pressure half time is 324 ms. The visualized portions of the thoracic aorta appear normal in size. Pulmonic Valve The pulmonic valve appears normal. There is no pulmonic stenosis. There is trace pulmonic regurgitation. Pericardium The pericardium appears normal. There is no pericardial effusion. General Findings The image quality was good (2). Technique(s) used in the evaluation: Multiplane, Color flow Doppler and Spectral Doppler. The predominant rhythm during the study was sinus. Comparison Findings Compared to prior TTE on 10/16/2024, IAS/IVS The interatrial septum appears normal. us Jose Richardsonoleo DO CV ECHO ORDERABLES Final Resu lt * (ABNORMAL) Reticulocytes (05/23/2025 12:17 PM EDT) RETIC (%) 1.9 0.7 - 2.5 % [facility] RETIC (ABSOLUTE) 0.0540 0.0164 - 0.0776 M/uL [facility] RETIC HGB EQUIV 23.20(L) 26.7 - 35.5 pg [facility] Comment:Decreased Retic HE i ndicates low iron availability. Retics, immature(%) 11.8 3.0 - 15.9 % [facility] Blood 05/23/2025 12:1 7 PM EDT 05/23/2025 12:20 PM EDT Result [facility] Marilu Anderson [facility] [place]OD ORDERABLES Final R esult Performing Organization Address City/[facility]/ZIP Co de Phone Number [address] [address] * (ABNORMAL) Iron and iron binding capacity (05/23/2025 12:17 PM EDT) Only the most recent of2 resultswithin the time period is included. IRON 18(L) 30 - 160 ug/dL [facility] IRON BINDING CAPACITY 254 228 - 428 ug/dL [facility] TRANSFERRIN SATURAT. 7(L) 15 - 50 % [facility] Blood 05/23/2025 12:1 7 PM EDT 05/23/2025 12:20 PM EDT [facility] [place]LOOD ORDERABLES Final R esult [facility] [address] [place] [address] * (ABNORMAL) CBC and differential (05/23/2025 12:17 PM EDT) Only the most recent of4 resultswithin the time period is included. WBC 7.87 4.00 - 11.00 K/uL [facility] RBC 2.50(L) 4.00 - 5.20 M/uL [facility] HGB 8.1(L) 12.0 - 16.0 g/dL [facility] HCT 23.7(L) 36.0 - 46.0 % [facility] PLT 153 150 - 450 K/uL [facility] Comment:Lauren Lai from the [facility] was notified of this delta change. MCV 94.8 80.0 - 100.0 fL [facility] MCH 32.4(H) 27.0 - 31.0 pg [facility] MCHC 34.2 32.0 - 36.0 g/dL [facility] RDW 18.6(H) 11.5 - 14.5 % [facility] MPV 9.4 8.4 - 12.0 fL [facility] NRBC 0.00 0.00 /100 WBCs [facility] ABSOLUTE NRBC 0.00 0.00 K/uL [facility] DIFF METHOD Auto [facility] NEUTS 76.4(H) 48.0 - 76.0 % [facility] LYMPHS 11.9(L) 18.0 - 41.0 % [facility] MONOS 7.6 4.0 - 11.0 % [facility] EOS 3.6 0.0 - 5.0 % [facility] BASOS 0.1 0.0 - 1.5 % [facility] Granulocytes, immature (%) 0.4 0.0 - 0.9 % [facility] ABSOLUTE NEUTS 6.01 1.92 - 7.60 K/uL [facility] ABSOLUTE LYMPHS 0.94 0.72 - 4.10 K/uL [facility] ABSOLUTE MONOS 0.60 0.16 - 1.10 K/uL [facility] ABSOLUTE EOS 0.28 0.00 - 0.50 K/uL [facility] ABSOLUTE BASOS 0.01 0.00 - 0.15 K/uL [facility] Granulocytes, immature 0.03 0.00 - 0.09 K/uL [facility] SCHISTOCYTES 1+(A) None [facility] TARGET CELLS PRESENT(A ) None [facility] Blood 05/23/2025 12:1 7 PM EDT 05/23/2025 12:20 PM EDT [facility] LAB BLOOD ORDERABLES Final R esult Performing Organization Address City/[facility]/ZIP Co de Phone Number [address] [address] * Ferritin (05/23/2025 12:17 PM EDT) Only the most recent of2 resultswithin the time period is included. FERRITIN 71 13 - 150 ug/L [facility] Blood 05/23/2025 12:1 7 PM EDT 05/23/2025 12:20 PM EDT [facility] LAB BLOOD ORDERABLES Final R [facility] Performing Organization Address [facility] Co de Phone Number [address] [address] * (ABNORMAL) Comprehensive metabolic panel (05/09/2025 1:52 PM EDT) Only the most recent of3 resultswithin the time period is included. SODIUM 136 133 - 146 mmol/L [facility] POTASSIUM 5.0 3.3 - 5.1 mmol/L [facility] CHLORIDE 100 96 - 108 mmol/L [facility] CO2 27 21 - 35 mmol/L [facility] BUN 25(H) 6 - 19 mg/dL [facility] CREATININE 1.10 0.5 - 1.5 mg/dL [facility] GLUCOSE 164(H) 70 - 99 mg/dL [facility] ALBUMIN 4.2 3.9 - 4.8 g/dL [facility] TOTAL PROTEIN 6.6 6.5 - 8.0 g/dL [facility] CALCIUM 9.0 8.4 - 10.3 mg/dL [facility] ALKALINE PHOSPHATASE 153(H) 39 - 117 U/L [facility] TOTAL BILIRUBIN 0.3 0.0 - 1.2 mg/dL [facility] AST 23 0 - 37 U/L [facility] ALT 20 0 - 40 U/L [facility] GLOBULIN 2.4 1 - 4.8 g/dL [facility] EGFR 54(L) >59 mL/min/1.7 3m2 [facility] Comment:Estimated glomerular filtration rate calculated using the CKD-EPI refit equation. ANION GAP 14 10 - 20 mmol/L [facility] Blood 05/09/2025 1:52 PM EDT 05/09/2025 1:56 PM EDT Marilu ESQUIVEL LAB BLOOD ORDERABLES Final R esult Performing Organization Address City/[facility]/ZIP Co de Phone Number [address] [address] * (ABNORMAL) Folate (04/08/2025 2:06 PM EDT) FOLIC ACID >20.0(H) 4.2 - 19.9 ng/mL [facility] Blood 04/08/2025 2:06 PM EDT 04/08/2025 2:20 PM EDT Micaela Cobb CNP LAB BLOOD ORDERABLES Final Resul t [address] [address] * Lab Add On: iron, iron sat, ferritin, folate, vit b12 (04/08/2025 1:32 PM EDT) TEST REQUESTED IRON, IRON SAT, FERRITIN, FOLATE, VIT B12 [facility] Comments (Chemistry) Add on order being processed. Floor or provider will be notified if testing cannot be performed [facility] 04/08/2025 1:32 PM EDT 04/08/2025 1:58 PM EDT us Micaela Jordyn VALENTIN LAB BLOOD ORDERABLES Edited Resu lt - Final Performing Organization Address [facility]/ZIP Co de Phone Number [address] [address] * Pathology review (04/08/2025 12:00 PM EDT) PATH REVIEW NO ABNORMAL WBCS [facility] Comment:Reviewed by Chao cárdenas MD 04/08/2025 12:0 0 PM EDT 04/08/2025 12:02 PM EDT us Marilu ESQUIVEL LAB BLOOD ORDERABLES Final R esult Performing Organization Address [facility] Co de Phone Number [address] [address] * Vitamin B12 (04/08/2025 12:00 PM EDT) VITAMIN B12 851 232 - 1,245 pg/mL [facility] 04/08/2025 12:0 0 PM EDT 04/08/2025 12:02 PM EDT us Marilu ESQUIVEL LAB BLOOD ORDERABLES Final R esult Performing Organization Address [facility] Co de Phone Number [address] [address] * TSH (01/02/2025 1:45 PM EDT) TSH 1.53 0.27 - 4.20 uIU/mL [facility] LIC# [id number] Blood 01/02/2025 1:45 PM EDT 01/02/2025 1:46 PM EDT us Ro Estrada NP LAB BLOOD ORDERABLES Final Result Performing Organization Address City/[facility]/ZIP Co de Phone Number [facility] LIC# [id number] [address] [place] [address] * (ABNORMAL) Lipid panel (01/02/2025 1:45 PM EDT) CHOLESTEROL 198 <200 mg/dL [facility] LIC# [id number] TRIGLYCERIDES 129 35 - 150 mg/dL [facility] LIC# [id number] HDL 104(H) 40 - 80 mg/dL [facility] LIC# [id number] CALCULATED LDL 68 50 - 129 mg/dL [facility] LIC# [id number] VLDL 26 <31 mg/dL [facility] LIC# [id number] CARDIAC RISK RATIO 1.9 0.0 - 5.0 [facility] LIC# [id number] Blood 01/02/2025 1:45 PM EDT 01/02/2025 1:46 PM EDT Ro Estrada SDET LAB BLOOD ORDERABLES Final Result Performing Organization Address [facility] Co de Phone Number [facility] LIC# [id number] [address] [place], [place] [id number] * ENDOSCOPY, SIGMOID (02/04/2015 12:07 PM EDT) 02/04/2015 12:0 7 PM EDT Narrative 02/04/2015 1:39 PM EDT Report Number: [id number] Report Status: Signed Type: Flexible Sigmoidoscopy Date: 02/04/2015 12:07 [facility] Gastroenterology Patient Name: John Lin Procedure Date: [...] - 02/04/2015 12:07 PM EDT Report Number: [id number] Report Status:Signed Type: Flexible Sigmoidoscopy Date: 02/04/2015 12:07 [facility] Gastroenterology Patient Name: John Lin Procedure Date: [...] On: 02/04/2015 12:07 PM us Unknown Unknown GI PROCEDURE ORDERABLES Final Result * DXA Axial (Spine With Hip) (03/31/2010 6:35 PM EDT) Anatomical Region Laterality Modality Bone Density Bone Density 03/30/2010 3:07 PM EDT Narrative 03/31/2010 6:35 PM EDT Exam Number: [id number] Report Status: Final Type: QDR 1 OR MORE LOCATIONS Date/Time: 03/30/2010 15:07 Exam Code: B410 Ordering Provider: CHUN ENCISO MD REPORT: Bone Density Report Name: JOHN LIN Age: 54 Sex: Female Ethnicity: White Date of : 1955 Indication: postmenopause, steroid use Referring Physician: CHUN ENCISO MD Study: Bone densitometry was performed. Exam Date: March 30, 2010 Accession number: [id number] Bone Density: Region BMD T-Score Z-Score Classification [...] Provider Not In - 01/21/2015 Exam Number: [id number] Report Status: Final Type: QDR 1 OR MORE LOCATIONS Date/Time: 03/30/2010 15:07 Exam Code: B410 Ordering Provider: CHUN ENCISO MD REPORT: Bone Density Report Name: JOHN LIN Age: 54 Sex: Female Ethnicity: White Date of : 1955 Indication: postmenopause, steroid use Referring Physician: CHUN ENCISO MD Study: Bone densitometry was performed. Exam Date: March 30, 2010 Accession number: [id number] Bone Density: Region BMD T-Score Z-Score Classification [...] (10/16/2009 7:00 PM EST) HBsAg NEGATIVE NEGATIVE [facility] HCV NEGATIVE NEGATIVE [facility] 10/16/2009 7:00 PM EST Comment:BLOOD Chun Enciso MD LAB BLOOD ORDERABLES Final Result [address] [address] from Last 3 Months or Most Recently Relevant to Health Maintenance Insurance MEDICARE PART A & B [facility] MEDIC[facility] PART A & B [place] B [employer] MEDICARE PART A & B [employer] MEDICARE PART A & [place] & B Member Subscriber Plan / Payer (Ef fective 2005-Present) Name:John Lin Member ID:[id number] Relation to Subscriber:Self Name:John Lin Subscriber ID:[id number] Payer ID:[id number] Group ID:Not on file Type:Medicare Address: [facility] [employer] [address] [address] [place] [facility] [place] PART A & B Advance Directives For more information, please contact: [phone] (9AM - 5PM [facility], Tuesday-Tuesday) * Full Code (Latest Code Status on File) Date Activated Date Inactivated Comments 06/07/2024 3:32 AM Question Answer Comments Code Status Confirmed With: Patient Care Teams Organizational Development Consultant Relationship Specialty Start Date End Date Eva Monreal MD [address] [place] [id number] [email or web address] - General Internal Medicine 04/03/19 Chun Enciso MD [address] [place] [address] Historical LMR Provider 01/16/15 Aydee Flores, [facility] [address] [place] [address] [email or web address] Oncology 06/09/21 Theresa Sweet [address] [place] [address] 10/06/22 Daniel Reed [address] [place] [address] [email or web address] 06/21/21 Magalis Fong MD [address] [place] [address] Gastroenterology 09/12/23 Micaela Cobb CNP [address] [place] [phone] [email or web address] Nurse Practitioner Medical Oncology 04/05/25 Marilu Anderson MBBS [address] [place] [address] [email or web address] Primary Oncologist Hematology and Oncology 05/02/25 Valeri Morales FNP [address] [place] [phone] [email or web address] Nurse Practitioner Medical Oncology 05/15/25 Marilu Anderson MBBS [address] [place] [address] [email or web address] Primary Oncologist Hematology and Oncology 05/15/25 Additional Source Comments The information contained in this document represents components of the legal health record. It is not the complete legal health record.[facility]
--- NOTE | 2025-06-11 00:20 | PC.NURSE ---
Took over care at 23:00, pt assist to the bathroom, ua collected and sent.
[2025-06-11 00:24] LABS: Appearance Urine Clear; Glucose Urine UA 500 mg/dL (Negative); PH 5.5 (5.0-9.0); Specific Gravity - Urine 1.015 (1.005-1.025); UMIC TRIGGER UACC YES
[2025-06-11 00:38] LABS: UACC Culture Trigger YES
[2025-06-11] MEDS: oxyCODONE HCl Immed Release 5 MG TABLET 10 MG PO (01:00)
[2025-06-11 01:22] VITALS: BP 141/72; PULSE 81; RESP 18; O2SAT 98
--- NOTE | 2025-06-11 02:38 | PC.NURSE ---
Reviewed discharge instructions with pt. pt verbalized understanding, no sign of distress, pt assist to the Er lobby, awaiting for her ride.
[2025-06-11 02:39] VITALS: BP 141/72; PULSE 81; RESP 18; TEMP 36.1; O2SAT 98
== END 2025-06-11 02:40 | disposition home or self-care (01) ==
PROVIDERS: Emergency Provider Emergency Medicine; PCP Internal Medicine
DX: S09.90XA Unspecified injury of head, initial encounter (principal); S00.03XA Contusion of scalp, initial encounter; S60.211A Contusion of right wrist, initial encounter; W19.XXXA Unspecified fall, initial encounter; Y93.9 Activity, unspecified; Y92.9 Unspecified place or not applicable; Y99.9 Unspecified external cause status
CPT/HCPCS: 70450; 72125; 73110; 73130; 81001; 87086; 99284

== ENCOUNTER → 2025-06-10 22:52 | Outpatient (BNV) | payer MEDICARE, MEDICAID, SELFPAY | PROVIDERS: Emergency Provider Emergency Medicine; PCP Internal Medicine; Visit Provider Radiology Diagnostic Radiology | DX: S09.90XA Unspecified injury of head, initial encounter (principal); M54.2 Cervicalgia; M47.812 Spondylosis without myelopathy or radiculopathy, cervical region; J34.89 Other specified disorders of nose and nasal sinuses | CPT/HCPCS: 70450; 72125 ==

== ENCOUNTER → 2025-06-11 00:53 | Outpatient (BNV) | payer MEDICARE, MEDICAID, SELFPAY | PROVIDERS: Emergency Provider Emergency Medicine; PCP Internal Medicine; Visit Provider Radiology Diagnostic Radiology | DX: M25.531 Pain in right wrist (principal); M79.641 Pain in right hand; W19.XXXA Unspecified fall, initial encounter | CPT/HCPCS: 73110; 73130 ==

== ENCOUNTER → 2025-09-04 19:15 | Outpatient (BNV) | payer MEDICARE, MEDICAID, SELFPAY | PROVIDERS: Admitting Provider Physician Assistant; Emergency Provider Student in an Organized Health Care Education/Training Program; PCP Internal Medicine; Visit Provider Internal Medicine | DX: R00.0 Tachycardia, unspecified (principal); I25.2 Old myocardial infarction | CPT/HCPCS: 93010 ==

== ENCOUNTER → 2025-09-04 20:49 | Outpatient (BNV) | payer MEDICARE, MEDICAID, SELFPAY | PROVIDERS: Emergency Provider Student in an Organized Health Care Education/Training Program; PCP Internal Medicine; Visit Provider Student in an Organized Health Care Education/Training Program | DX: J90 Pleural effusion, not elsewhere classified (principal); R91.8 Other nonspecific abnormal finding of lung field | CPT/HCPCS: 71045; 71275 ==